=== PATIENT | male | born 1940 | race Caucasian/White ===

== ENCOUNTER → 2017-09-08 07:49 | Outpatient (CLI) | payer MEDICARE, OTHER, SELFPAY ==
[2017-09-08 09:57] LABS: AST(SGOT) 16 U/L (15-37); Alanine Aminotransfer ALT/SGPT 17 U/L (16-61); Albumin, Serum 3.6 g/dL (3.2-5.0); Alkaline Phosphatase 71 U/L (45-117); Bilirubin, Direct 0.12 mg/dL (0.00-0.30); Cholesterol 155 mg/dL (200); Globulin 3.8 g/dL (2.2-4.2); High Density Lipoprotein 41 mg/dL; Protein, Total 7.4 g/dL (6.4-8.2); Triglycerides 106 mg/dL; Very Low Density Lipoprotein 21 mg/dL (5-40)
== END ==
PROVIDERS: Family Provider Internal Medicine; PCP Internal Medicine; Visit Provider Internal Medicine Cardiovascular Disease
DX: E78.5 Hyperlipidemia, unspecified (principal); Z79.899 Other long term (current) drug therapy
CPT/HCPCS: 36415; 80061; 80076

== ENCOUNTER → 2017-12-14 15:01 | Outpatient (CLI) | payer MEDICARE, OTHER, SELFPAY ==
--- NOTE | 2017-12-14 15:06 | RAD_ITS ---
STUDY: X-RAY CHEST REASON FOR EXAM: Male, 77 years old. Cough x4 weeks TECHNIQUE: PA and lateral views of the chest. COMPARISON: Prior study of 12/14/2016 5:22 AM FINDINGS: There is hyperinflation of the lungs with hemidiaphragmatic flattening and increased retrosternal airspace consistent with COPD. There are 2 calcified granulomas of the right middle lobe measuring 1.2 and 1.3 cm respectively, stable from prior study of 07/04/2016. There is no pleural effusion. The heart size is within normal limits. Status post sternotomy changes are present. Normal mediastinum and babak. Normal visualized pulmonary arteries. There are calcified plaques of the aortic arch. There are diffuse degenerative changes of the visualized thoracic spine. Normal visualized ribs, clavicles, and shoulders. There is no demonstrated abnormality of the visualized soft tissue structures of the upper abdomen. RAD/Chest PA and Lateral IMPRESSION: Findings consistent with COPD. Stable calcified granulomas of the right middle lobe. Calcified plaques of the aortic arch. Status post sternotomy. No acute cardiopulmonary disease process is seen. Electronically Signed: Jevon Back MD at 16:09 EDT , Service support ,
== END ==
PROVIDERS: Family Provider Internal Medicine; PCP Internal Medicine; Referring Provider Nurse Practitioner; Visit Provider Nurse Practitioner
DX: R05 Cough (principal)
CPT/HCPCS: 71046

== ENCOUNTER → 2017-12-15 14:08 | Outpatient (CLI) | payer MEDICARE, OTHER, SELFPAY ==
--- NOTE | 2017-12-15 14:49 | CT_ITS ---
STUDY: CTA CHEST REASON FOR EXAM: Male, 77 years old. Elevated d-dimer. Short of breath. Previous heart surgery. History of lung cancer status post lobectomy. RADIATION DOSAGE (If Supplied By Facility): CTDIvol = ( 20.19 ) mGy, DLP = ( 727.77 ) mGycm TECHNIQUE: The examination was performed with the intravenous administration of 100 ml of Isovue 370 contrast material. Post-processing of the angiographic images was performed, with multiplanar reformation and 3D reconstruction. Individualized dose optimization techniques were used for this CT. COMPARISON: None. FINDINGS: Normal enhancement of the main pulmonary artery and right and left pulmonary arteries. Normal enhancement of the bilateral peripheral pulmonary arteries. There is no demonstrated pulmonary embolism. There is prominence of the main pulmonary arteries without peripheral pulmonary vascular congestion, suggesting pulmonary hypertension. There is atherosclerotic calcification of the aortic arch with tortuosity. There is no demonstrated aortic dissection. There is mild cardiomegaly. There are calcifications of the coronary arteries. Normal mediastinum. Normal hilar regions. Normal visualized trachea and bronchi. There is evidence of COPD and centrilobular emphysema. There is a partially calcified 1.2 cm nodule in the lateral right middle lobe. Scarring seen in both posterior lower lobes. Normal pleura. There are no pleural effusions. Normal chest wall structures. Moderate hiatal hernia. There are degenerative changes of thoracic spine. Views of the upper abdomen show numerous small bilateral renal stones. CT/CTA Chest W/WO Contrast IMPRESSION: No evidence for PE. COPD. Cardiomegaly. Electronically Signed: Prasanna Lr MD at 16:37 EDT , Service support ,
== END ==
PROVIDERS: Family Provider Internal Medicine; PCP Internal Medicine; Referring Provider Nurse Practitioner; Visit Provider Nurse Practitioner
DX: R79.89 Other specified abnormal findings of blood chemistry (principal)
CPT/HCPCS: 71275; Q9967

== ENCOUNTER → 2018-02-08 19:11 | Outpatient (CLI) | payer MEDICARE, OTHER, SELFPAY ==
--- NOTE | 2018-02-08 09:30 | CYSPIN_PTH ---
PATIENT: RICKY BURNS LOC: [facility] U#:[id number] AGE/SX: 84/M ROOM: RE02/08/[address]: Dr. Yandel Murrieta MD : 1940 BED: DIS: SPEC #: [id number] RECD: 02/08/18 16:59 STATUS: EFRA ALAYNA #: [id number] GRETCHEN: 02/08/18 09:[address]: Yandel Murrieta DEPT: CYTOLOGY RECD BY: Daryl Nielsen ENTERED: 02/09/18 11:47 SP TYPE: CYSPIN FL OTHR DR: Dr. Rosana Douglass, DO Tissues: Urine Procedures: Pap Stain (control) Special Stain Group II Cytospin Fluid HEADER OPERATION: Not noted PRE-OP DIAGNOSIS: Hematuria TISSUE SUBMITTED: Urine for cytology DIAGNOSIS CYTOLOGY Urine for cytology (cytospin): Clusters of mildly atypical urothelial cells noted. SJ:lorenzo 02/10/18 COMMENT Clinical correlation and appropriate follow up are necessary. 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 CYTOLOGY STUDY Slides are reviewed. CYTOLOGY GROSS Received is 18 ml of cloudy yellow fluid labeled with the patient's name and and designated per the requisition as urine. Submitted for cytology preparation. 02/09/18 TC:5 CPT: 06131
[2018-02-08 19:14] LABS: Cytology, Body Fluid / CSF SEE PATHOLOGY REPORT
--- OUTSIDE RECORDS SUMMARY | 2018-05-13 10:01 | XMS RPT_ITS | Continuity of Care Document ---
:1940 Author Organization [facility] Address [address] [place] [address] Phone Care Team Providers Name Role Phone Rosana Davis DO Unavailable [facility] Unavailable Gato Dickinson MD Unavailable Shannon Mendez Unavailable Unavailable Marjorie DOMINGUEZGaby Unavailable Kristen Kim Unavailable Unavailable RUSSELL Rosales Unavailable Unavailable Yesy Hagan Unavailable Unavailable Unavailable Unavailable Problems Name Dates Details Annual Medicare Phyiscal WITHOUT abnormal findings (Renamed from Encounter for general adult medical examination without abnormal findings) (Z00.00, V70.9) Comments: Colonoscopy Dickinson 2009, fUp in 2019 Patient here for medical follow up as well as medicare physical. Went through all the medicare questions withthe patient and reveiwed all their medical problems.No abnormal moles on physical examination.MMSE 27/30.Depression screening negative.Reviewed all the labs with the patient.(CBC, CMP, lipid panel, TSH, PSA, vitamin D, Vit B12,folate, HBA1c, UA)colonoscopy 11/28/2009, follow up 11/2019Up to date with vaccinations.Does not need any medication refills.Make sure throw rugs are thin and rubber backed. Recommend handrail in bathroom.Denies falls in the last 6 months Counselled on diet and exercise.Patient has durable power of energy attorney and living will. Status: Active Anxiety (F41.9, 300.00) Comments: doing well on zoloft. use 75 mg working great. Status: Active Bloating (R14.0, 787.3) Comments: still on PPI. talk abut probiotics. Status: Active BMI 29.0-29.9,adult (Z68.29, V85.25) Status: Active BMI 30.0-30.9,adult (Z68.30, V85.30) Status: Active Bronchitis (J40, 490) Status: Active Carotid stenosis (I65.29, 433.10) Comments: 3-15 mild moderate. will recheck - bilateral Status: Active Chronic headaches (R51, 784.0) Comments: had on and off for years. was on chronic IBU when stopped had bad headaches daily and now less. will mo nitor no other neuro signs and symptomstylenol /ibuprofen helps Status: Active Colon polyp (K63.5, 211.3) Comments: 11 scopePolyp araseli Status: Active Constipation, chronic (K59.09, 564.00) Comments: once a day but marbly. use stool softner. at times. told take everyday and assure not a stimulant. if does nto work try linzess. Status: Active Coronary artery disease (I25.10, 414.00) Comments: stableCABG X6 in 2003Ofori every 6 monthlast viit 12/15No CP, palpitations, Status: Active Cough (R05, 786.2) Comments: x 5 weeks Status: Active CRP elevated (R79.82, 790.95) Comments: repeat 6 weeksCRP: 12.2 Status: Active Depression (F32.9, 311) Comments: stable on zoloft 75 mgsince 2013, more for anxietyNo SI/HI Status: Active Diverticulitis, colon (K57.32, 562.11) Status: Active Diverticulosis of colon (K57.30, 562.10) Status: Active Dyspnea (R06.00, 786.09) Comments: Spirometry:Moderate obstructive AW disease.See network lead Dr Doty for lung cancer s/p surgery (october/2015)PFTSOB when walking through the yard, deneis CP, palpittaionsALbuterol INH PRN, hasnt used in a while Status: Active Dysuria (R30.0, 788.1) Comments: had cytoscopy 5 years ago. think in prostate will treat for 3 weeks. watch for tendonitis Status: Active Elevated d-dimer (R79.89, 790.92) Comments: with Sob and cough Status: Active Elevated lactic acid level (R79.89, 276.2) Status: Active Encounter for routine history and physical exam for male (Z00.00, V70.0) Comments: 08-07 reveiwed with patient all questions. talk about shingles vaccine. fo to pharmacy to get. psa andrectal 08-07. due 01-07 for colonscopy Status: Active Enlarged prostate with lower urinary tract symptoms (N40.1, 600.01) Status: Active Esophagitis (K20.9, 530.10) Comments: EGD 11-05, 11-07 goodBaggot 08 august 2015 Status: Active Fatigue (R53.83, 780.79) Comments: generalized weaknesssleeps 7-8 hours /night, restfull sleep, does not snore2-3 time in the middle of night to go to bathroom Status: Active Gastrointestinal bleeding (K92.2, 578.9) Comments: better nothing now ? diverticulosis. Status: Active GERD (gastroesophageal reflux disease) (K21.9, 530.81) Comments: been on ppi since 46 yo. cut off ibu. used multienzy nd pepsin. keep on ppi. egd few years ago Status: Active Hematuria (R31.9, 599.70) Comments: had in past had cystoscopy marlyn Status: Active Hemoptysis (R04.2, 786.30) Status: Active History of bladder stone (Z87.448, V13.09) Comments: last passed stone 15. Status: Active History of lung cancer (Z85.118, V10.11) Status: Active History of tobacco use (Z87.891, V15.82) Status: Active HX, PERSONAL, MALIGNANCY, RESPIRATORY NEC (V10.29) Comments: 10-07 Dr. Almanzar 6 monthsleft lower lobe removed 2009, due to cancer, localized, no chemo or radiation Status: Active Hypercholesteremia (E78.00, 272.0) Comments: Dr. peres check Status: Active Hypertension (I10, 401.9) Comments: stableOfori 01/2015, every 6 month, next appt in [facility], started HCTD 03/10, stableStable at home:125/60, 97741/60, 120/65 Status: Active Impaired fasting glucose (R73.01, 790.21) Comments: HBA1c 5.6 07/24/15 Status: Active Itching (L29.9, 698.9) Status: Active Malignant neoplasm of bronchus and lung, unspecified (C34.90, 162.9) Comments: rt lobectomy Status: Active Need for prophylactic vaccination and inoculation against influenza (Renamed from Need for immunization against influenza) (Z23, V04.81) Status: Active Need for vaccination against Streptococcus pneumoniae (Z23, V03.82) Status: Active Nonsmoker (Z78.9, V49.89) Status: Active Obstructive lung disease (J44.9, 496) Comments: has not been using anoro given to him by [facility], mildsmoked for 30 years, 1-2 ppd, quit 23 yrs agoNo cough, phlegm white more in winterNo wheezeHAs allergiesHas rescue inhalor, [facility] COPD and gets Inhalors from there Status: Active Pneumococcal vaccination given (Z23, V06.6) Status: Active Poison ana (L23.7, 692.6) 15-Apr-2010 Status: Active PROPHYLACTIC VACCINATION AGAINST STREPTOCOCCUS PNEUMONIAE (V03.82) Status: Active Screening for prostate cancer (Z12.5, V76.44) Status: Active Shortness of breath (R06.02, 786.05) Comments: ? copd, Pe? panic? lung cancer, pneumonia, labs, dimer, etc add antibiotic prednison Status: Active Thrombocytopenia (D69.6, 287.5) Status: Active Unspecified bacterial pneumonia (J15.9, 482.9) 05-Nov-2009 Status: Active Vision abnormalities (H53.9, 368.9) [facility]/70Both 20/70could do a few 20/50Last [address] Floyd Status: Active Vitamin D deficiency (E55.9, 268.9) Status: Active Medications Name Dates Details ASPIRIN LOW DOSE, 81MG (Oral Tablet) 1 Daily for 0 days Refills: 0 Ordered:24-Jul-2015 Wes Hernandez MD Start : 24-Jul-2015 Active ISOSORBIDE MONONITRATE ER, 60MG (Oral Tablet Extended Release 24 Hour) 1 qd for 0 days Refills: 0 Ordered:24-Jul-2015 Wes Hernandez MD Start : 24-Jul-2015 Active Levaquin 500 MG Oral Tablet 1 (one) Tablet daily for 0 days Quantity: 10 {Tablet} Refills: 0 Ordered:14-Dec-2017 Marjorie DOMINGUEZ Gaby Torrez Start : 14-Dec-2017 Active Losartan Potassium 50 MG Oral Tablet 1 (one) Tablet Tablet BID for 90 days Quantity: 90 {Tablet} Refills: 3 Ordered:11-Sep-2017 Shannon Mendez Start : 11-Sep-2017 Active Metoprolol Tartrate 25 MG Oral Tablet 1/2 qd (25 MG) Active MULTI VITAMIN 1 qd Active NORVASC, 10MG (Oral Tablet) 1 (one) Tablet qd for 0 days Quantity: 30 {Tablet} Refills: 3 Ordered:24-Jul-2015 Wes Hernandez MD Start : 24-Jul-2015 Active OMEPRAZOLE, 20MG (Oral Tablet Delayed Release) [address] bid for 0 days Quantity: 180 {Tablet} Refills: 3 Ordered:24-Jul-2015 Wes Hernandez MD Start : 24-Jul-2015 Active PRAVACHOL, 40MG (Oral Tablet) 1 Tablet qd for 0 days Quantity: 30 {Tablet} Refills: 0 Ordered:24-Jul-2015 Wes Hernandez MD Start : 24-Jul-2015 Active PredniSONE 10 MG Oral Tablet 3 (three) Tablet pills for 3 days 2 pills for 3 days then 1 pill for 3 days for 0 days Quantity: 18 {Tablet} Refills: 0 Ordered:14-Dec-2017 Marjorie DOMINGUEZ Pepper Start : 14-Dec-2017 Active Comments:with food TOPROL XL, 50MG (Oral Tablet Extended Release 24 Hour) 1/2 Tablet ER 24HR bid for 0 days Quantity: 30 {Tablet_ER_24HR} Refills: 0 Ordered:24-Jul-2015 Wes Hernandez MD Start : 24-Jul-2015 Active Ventolin HFA 108 (90 Base) MCG/ACT Inhalation Aerosol Solution 1 puff q hrs prn (108 (90 Base) MCG/ACT) Active Zoloft 50 MG Oral Tablet 1 1/2-2 Tablet daily for 90 days Quantity: 135 {Tablet} Refills: 3 Ordered:04-Nov-2017 Evonne DUTTONKishor DO, Kathleen Start : 04-Nov-2017 Active Zoloft 50 MG Oral Tablet 1 1/2-2 Tablet daily for 90 days Quantity: 134 {Tablet} Refills: 3 Ordered:04-Nov-2017 EvonneKishor vicente DO, DO, Kathleen Start : 04-Nov-2017 Active ALTACE, 10MG (Oral Capsule) 1 qd for 0 days Refills: 0 Ordered:15-Apr-2010 JOHANA Ellis End : 15-Apr-2010 Inactive ASPIRIN, 81MG (Oral Tablet) 1 qd for 0 days Refills: 0 Ordered:15-Apr-2010 JOHANA Ellis End : 15-Apr-2010 Inactive ATIVAN, 1MG (Oral Tablet) 1 Tablet once a day prn anxiety attack for 0 days Quantity: 10 {Tablet} Refills: 0 Ordered:24-Apr-2015 JOHANA Ellis Start : 22-Oct-2012 End : 24-Apr-2015 Inactive Comments:ten AUGMENTIN, 875-125MG (Oral Tablet) 1 Tablet bid for 0 days Quantity: 28 {Tablet} Refills: 0 Ordered:13-Jun-2010 JOHANA Ellis Start : 24-May-2010 End : 13-Jun-2010 Inactive BENADRYL, 25MG (Oral Capsule) 1 (one) Capsule Capsule q8hrs prn for 0 days Quantity: 30 {Capsule} Refills: 0 Ordered:03-Aug-2014 JOHANA Ellis Start : 31-Aug-2013 End : 03-Aug-2014 Inactive Benazepril HCl 40 MG Oral Tablet 1 Tablet bid for 0 days Quantity: 60 {Tablet} Refills: 0 Ordered:31-Dec-2016 Carmela Rosales LPN Start : 24-Jul-2015 End : 31-Dec-2016 Inactive CHERATUSSIN AC, 100-10MG/5ML (Oral Syrup) 1 (one) Syrup Syrup 1-2 tsp every 6 hours prn cough for 0 days Quantity: 8 {Fluid_Ounce} Refills: 0 Ordered:03-Aug-2014 JOHANA Ellis Start : 28-Feb-2014 End : 03-Aug-2014 Inactive Comments:eight CIPRO, 500MG (Oral Tablet) 1 (one) Tablet bid for 21 days Quantity: 42 {Tablet} Refills: 0 Ordered:23-Jan-2015 Parul Rice MD Start : 23-Jan-2015 End : 13-Feb-2015 Inactive CLARINEX, 5MG (Oral Tablet) 1 (one) Tablet qd for 0 days Refills: 0 Ordered:15-Apr-2010 JOHANA Ellis Start : 25-Jul-2008 End : 15-Apr-2010 Inactive Clarithromycin 500 MG Oral Tablet 1 (one) Tablet bid for 0 days Quantity: 20 {Tablet} Refills: 0 Ordered:31-Dec-2016 Carmela Rosales LPN Start : 04-Jul-2016 End : 31-Dec-2016 Inactive CRESTOR, 5MG (Oral Tablet) 1 qd for 0 days Refills: 0 Ordered:05-Nov-2009 JOHANA EllisInactive DEXILANT, 60MG (Oral Capsule Delayed Release) 1 (one) Capsule DR daily for 0 days Quantity: 30 {Capsule} Refills: 0 Ordered:31-Jan-2014 Wendy Johnson LPN Start : 31-Jan-2014 End : 31-Jan-2014 Inactive DOXY-CAPS, 100MG (Oral Capsule) 1 (one) Capsule bid for 0 days Quantity: 20 {Capsule} Refills: 0 Ordered:05-Nov-2009 JOHANA Ellis Start : 09-Jul-2007 Inactive HydroCHLOROthiazide 25 MG Oral Tablet 1 (one) Tablet qd for 0 days Quantity: 30 {Tablet} Refills: 2 Ordered:31-Dec-2016 Carmela Rosales LPN Start : 24-Jul-2015 End : 31-Dec-2016 Inactive Comments:bam Peres ISOSORBIDE MONONITRATE CR, 30MG (Oral Tablet Extended Release 24 Hour) 1 qd for 0 days Refills: 0 Ordered:15-Apr-2010 JOHANA Ellis End : 15-Apr-2010 Inactive NASACORT AQ, 55MCG/ACT (Nasal Aerosol Solution) 2 (two) Aerosol Soln qd for 0 days Refills: 0 Ordered:05-Nov-2009 JOHANA Ellis Start : 25-Jul-2008 Inactive NEXIUM, 40MG (Oral Capsule Delayed Release) [address] Daily for 0 days Quantity: 90 {Capsule_DR} Refills: 3 Ordered:08-Nov-2007 JOHANA Ellis Start : 08-Nov-2007 End : 27-Jan-2008 Inactive OMNICEF, 300MG (Oral Capsule) 1 (one) Capsule bid for 10 days Quantity: 20 {Capsule} Refills: 0 Ordered:09-Aug-2009 Gaby Ro CNP Start : 24-Jul-2009 End : 03-Aug-2009 Inactive PHENERGAN, 25MG (Oral Tablet) Tablet QID/PRN for 0 days Quantity: 20 {Tablet} Refills: 0 Ordered:15-May-2006 Renee Oreilly LPN Start : 15-May-2006 End : 04-Aug-2006 Inactive PROVENTIL HFA, 108 (90 Base)MCG/ACT (Inhalation Aerosol Solution) 2 (two) Aerosol Soln q 6 hr prn for 0 days Quantity: 1 {Inhaler} Refills: 0 Ordered:24-Apr-2015 JOHANA Ellis Start : 19-Mar-2015 End : 24-Apr-2015 Inactive SIMVASTATIN, 40MG (Oral Tablet) 1 qd for 0 days Refills: 0 Ordered:16-Aug-2010 JOHANA Ellis End : 16-Aug-2010 Inactive TAMIFLU, 75MG (Oral Capsule) Capsule BID5 days for 0 days Quantity: 10 {Capsule} Refills: 0 Ordered:15-May-2006 Renee Oreilly LPN Start : 15-May-2006 End : 04-Aug-2006 Inactive VITAMIN D, 2000UNIT (Oral Capsule) 1 (one) Capsule daily for 30 days Quantity: 30 {Capsule} Refills: 0 Ordered:12-Nov-2015 Wes Hernandez MD Start : 08-Aug-2015 End : 07-Sep-2015 Inactive ZOSTAVAX, 93252EMD/0.65ML (Subcutaneous Solution Reconstituted) 1 For Solution once IM for 0 days Quantity: 1 {For_Solution} Refills: 0 Ordered:13-Jun-2010 JOHANA Ellis Start : 15-Apr-2010 End : 13-Jun-2010 Inactive Diovan 80 MG Oral Tablet 1 (one) Tablet bid for 0 days Quantity: 180 {Tablet} Refills: 3 Ordered:14-Dec-2017 Shannon Mendez Start : 31-Dec-2016 End : 14-Dec-2017 Discontinued OMEPRAZOLE, 40MG (Oral Capsule Delayed Release) 1 (one) Capsule DR daily for 0 days Quantity: 30 {Capsule} Refills: 0 Ordered:31-Jan-2014 Dwayne GARCIA, Parul Edwards Start : 31-Jan-2014 End : 31-Jan-2014 Discontinued Comments:ignore PREDNISONE, 20MG (Oral Tablet) tad Tablet tad for 0 days Quantity: 17 {Tablet} Refills: 0 Ordered:21-Aug-2006 Chayo Lorenz Start : 21-Aug-2006 End : 23-Jun-2007 Discontinued Allergies and Adverse Reactions Name Dates Details No Known Allergies (Allergy) Onset: 25-Jul-2013 Status: Active No Known Drug Allergies (Allergy) Status: Active Past Medical History Name Dates Details Actinic keratosis (L57.0, 702.0) Status: Inactive as of 10-Aug-2012 Acute sinusitis (J01.90, 461.9) Status: Inactive as of 10-Aug-2012 BMI 30.0-30.9,adult (Z68.30, V85.30) Status: Resolved as of 10-Sep-2017 BMI 31.0-31.9,adult (Z68.31, V85.31) Status: Resolved as of 10-Sep-2017 BPH Status: Inactive as of 10-Aug-2012 Bronchitis (J40, 490) Status: Resolved as of 31-Dec-2016 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 kidney stones and back to [place] Status: Inactive as of 10-Aug-2012 Dysphagia, unspecified dysphagia (787.20) Comments: pt did not call Dr. dickinson as Dr. davis recommend had EGD for this and everything good. Status: Resolved as of 25-Jul-2013 Epigastric pain (R10.13, 789.06) Status: Inactive as of 25-Jul-2014 Essential hypertension, malignant (I10, 401.0) Status: Inactive as of 10-Aug-2012 folliculitis 15-Apr-2010 Status: Inactive as of 10-Aug-2012 H/O Colon Polyps Status: Inactive as of 10-Aug-2012 H/O Kidney stones Status: Inactive as of 10-Aug-2012 hemmorhiodectomy Status: Inactive as of 10-Aug-2012 hernia repair right Status: Inactive as of 10-Aug-2012 Hypotension, chronic (I95.89, 458.1) Status: Resolved as of 31-Dec-2016 Lung nodule (R91.1, 793.11) Comments: pulm at 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 last few CT scan of chest up at [facility] see Dr. Lam pultania. will send up report and asrrue they compare Status: Resolved as of 25-Jul-2013 POSTPROCEDURAL AORTOCORONARY BYPASS STATUS (V45.81) Status: Inactive as of 10-Aug-2012 Thrombophlebitis (I80.9, 451.9) Status: Inactive as of 10-Aug-2012 tonsillectomy Status: Inactive as of 10-Aug-2012 Traumatic pneumothorax with open wound into thorax (Renamed from Pneumothorax, open, traumatic) (S27.0XXA, 860.1) Status: Inactive as of 10-Aug-2012 Upper respiratory infection (J06.9, 465.9) Status: Inactive as of 10-Aug-2012 WW V70.0 Status: Inactive as of 10-Aug-2012 Procedures Procedure Dates Details Colonoscopy Completed Comments: 01-09-2010 (Dr. Dickinson) due in 10 years Colonoscopy - Dr West, patient reports Completed he is to check in 4 years Comments: colonoscopy 11/28/2009: moderate to severe diverticulosis, follow up 11/2019 kidney stones Completed Comments: 2016 Prostatectomy; Transurethral Completed Comments: 2006- benign Date Value Details 14-Dec-2017 Chest PA and Lateral Result: Comments: See Note; NOTES: [facility] Imaging Services [address] [place] [address] Chest PA and Lateral MR#: [id number] Acct: [id number] Name: GEORGE VANN Rep #: [id number] : 1940 M 77 From: Jevon Back MD PCP: Rosana Davis DO Status: REG CLI Study: Chest PA and Lateral Date of Exam: 12/14/17 Exam# [id number] Ordering Dr: Gaby Ro SIENE MAKERHernan STUDY: X-RAY CHEST REASON FOR EXAM: Male, 77 years old. Cough x4 weeks TECHNIQUE: PA and lateral views of the chest. COMPARISON: Prior study of 12/14/2016 5:22 AM FINDINGS: There is hyperinflation of the lungs with hemidiaphragmatic flattening and increased retrosternal airspace consistent with COPD. There are 2 calcified granulomas of the right middle lobe measuring 1.2 a nd 1.3 cm respectively, stable from prior study of 07/04/2016. There is no pleural effusion. The heart size is within normal limits. Status post sternotomy changes are present. Normal mediastinum and hi la. Normal visualized pulmonary arteries. There are calcified plaques of the aortic arch. There are diffuse degenerative changes of the visualized thoracic spine. Normal visualized ribs, clavicles, and shoulders. There is no demonstrated abnormality of the visualized soft tissue structures of the upper abdomen. RAD/Chest PA and Lateral IMPRESS ION: Findings consistent with COPD. Stable calcified granulomas of the right middle lobe. Calcified plaques of the aortic arch. Status post sternotomy. No acute cardiopulmonary disease process is seen. Electronically Signed: Jevon Back MD at 16:09 EDT , Service support , CC: Gaby Ro NP; Rosana Davis DO Automated Weaver: Signed 10-Sep-2017 Cardiology Visit Report Result: Comments: See Note; NOTES: [facility] [address] [place] [address] OFFICE VISIT Date of Service: 09/10/17 MR#: [id number] Acct: [id number] Name: GEORGE VANN Rep #: [id number] : 1940 Provider: Butch Peres MD Age/Sex: 76/M Location: [facility] Status: Signed HPI HPI Chief Complaint: Follow up visit Details: GEORGE VANN, is a 76 M who presents to e office today for a cardiovascular follow-up. He has a history of coronary artery disease with bypass surgery in 2003. He had a JUAREZ sequentially to the ramus intermedius and first diagonal, BUD to th e LAD, SVG to the second diagonal, SVG sequentially to the posterior descending and circumflex. Heart catheterization done in 2012 were similar to 2004. He also has a history of hypertension, hyperlipid emia, left lower lobe lobectomy without radiation for his history of lung cell carcinoma. His major concern on this particular visit is that he has had some shortness of breath. He remember he had been on hydrochlorothiazide which he said was discontinued after his last hospitalization. He has not had any neck arm or jaw discomfort suggest angina no dizziness or diaphoresis no near syncope or syncope. His physical exam today demonstrates fine rales at the bases regular rate and rhythm and no pedal edema. 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 [Ecotrin] 81 mg PO DAILY@0800 12/04/15 [History Confirmed 09/10] Pravastatin [Pravachol] 40 mg PO DAILY 12/04/15 [History Confirmed 09/10/17] Sertraline HCl [Zoloft] 75 mg PO DAILY 12/04/15 [History Confirmed 09/10/17] Valsartan [Diovan] 80 mg PO BID #0 12/14/16 [Rx Confirmed 09/10/17] nitroglycerin 0.4 mg sublingual tablet 0.4 mg SUBLINGUAL Q5M PRN 02/27/17 [History Confirmed 09/10/17] amlodipine 10 mg tablet 10 mg PO QDAY #90 tab 08/10/17 [Rx Confirmed 09/10] isosorbide mononitrate ER 60 mg tablet,extended release 24 hr 60 mg PO DAILY #90 tab 08/10/17 [Rx Confirmed 09/10/17] metoprolol tartrate 25 mg tablet 12.5 mg PO BID #90 tab 08/10/17 [Rx Confirmed 09/10/17] omeprazole 20 mg capsule,delayed release 20 mg PO BID #180 cap 08/10/17 [Rx Confirmed 09/10/17] hydrochlorothiazide 25 mg tablet 25 mg PO QDAY #90 tab 09/10/17 [Rx Confirmed 09/10/17] PFSH Medical History Atherosclerotic heart disease of [place] coronary artery without angina pectoris (Chronic) HLD (hyperlipidemia) (Chronic) HTN (hypertension ) (Chronic) Arteriosclerosis of arterial coronary artery bypass graft (Chronic) Abnormal electrocardiogram (Chronic) Carotid bruit (Chronic) Shortness of breath (Chronic) Hypoxia (Chronic) COPD (chronic obstructive pulmonary disease) (Chronic) HLD (hyperlipidemia) (Chronic) History of echocardiogram (Chronic 12/10/15) History of left heart catheterization (LHC) (Chronic) History of stress test (Chroni c 08/21/16) Surgical History Aortocoronary bypass status (Chronic) History of tonsillectomy (Chronic) History of transurethral resection of prostate (Van garcia 06/03/06) Family History Mother Cancer Lung CA Brother Diabetes Social History Smoking Status: Former smoker alcohol intake: current al cohol intake frequency: a few times a week Alcohol type: wine substance use type: does not use caffeine: Yes Type: coffee Number of servings: 3 what type of physical activity do you participate in: n one seatbelt use: always do you feel safe at home: Yes ROS Const Const: Positive for headache(s) (for the last 6 months); negative for fatigue, weakness, night sweats, excessive sweating, frequen t falls or daytime sleepiness Eyes Eyes: Negative for loss of peripheral vision, transient loss of vision, blind spots, double vision or blurry vision ENT ENT: Positive for headache(s) (for the last 6 m onths); negative for dizziness, balance problems, Nosebleed/epistaxis, tongue swelling or lip swelling Cardio Chest Pain: No Palpitations: No Edema: None Muscle aches with walking: None Resp Respiratory : Positive for SOB with activity; negative for SOB at rest, SOB orthopnea\SOB lying down, Cough or paroxysmal nocturnal dyspnea GI GI: Negative nausea, vomiting, heartburn, black,tarry stools or bright, red blood in stools : Negative for hematuria Musc Musc: Negative for balance problems, muscle aches/ myalgia, muscle weakness or joint pain Skin Skin: Negative non-healing lesions, unusual bruisin g or rash Neuro Neuro: Positive for headache(s) (for the last 6 months); negative for weakness, frequent falls, double vision, dizziness, lightheadedness, orthostatic symptoms, blurry vision or lack of coordination Derek Hematologic/Lymphatic: Negative for easy bruising or easy bleeding Endo Endo: Negative for fatigue, excessive sweating, cold intolerance, heat intolerance, increased thirst/drinking or hair loss Psych Psych: Negative for anxiety or depression Allergy Allergy/Immunology: Negative for throat swelling, Negative for tongue swelling, Negative for hives, Negative for rash, Negative for lip swelling Cardiology Exam Const Appearance: cooperative, healthy appearing, well developed, well groomed and no acute distress Nutritional Appearance: well nourished and average body habitus Orientati on: alert, awake and oriented x3 Head Head: normal to inspection, normocephalic and atraumatic Ears: hearing grossly normal bilaterally and external ears normal Nose: external nose normal, nasal mucous membranes and turbinates normal, nares normal, septum normal, no nasal discharge Face and Sinus: face symmetric Mouth: oral mucosae normal, tongue normal, oropharynx normal and moist mucous membranes Te eth and gingiva: dentition normal Throat: posterior oropharynx normal, tonsils normal and uvula midline Eyes General: appearance normal, both eyes and all related structures Eyelids: eyelids normal Conj unctivae: conjunctivae normal Pupils: PERRL, normal by confrontation and accommodation normal EOM: EOM intact bilaterally Neck Neck: normal visual inspection, trachea midline and no JVD JVD: +5 Carotids : normal carotid upstroke and bounding pulses Chest Auscultation: Bilateral: Rales Cardio Palpation: normal PMI Rate: regular rate Rhythm: regular rhythm Heart sounds: S1 normal, S2 normal and normal, p hysiologic split S2; negative rub, gallop or murmur GI GI: normal to inspection, soft, no hepatosplenomegaly and bowel sounds present Neuro General: alert, awake, oriented x3, no focal sensory deficit, gait normal and moves all extremities Skin Skin: no rashes or lesions noted Extremities Pulses: Normal: Right Femoral Pulse, Left Femoral Pulse, Right Dorsalis Pedis Pulse, Left Dorsalis Pedis Pulse, Ri ght Posterior Tibial Pulse, Left Posterior Tibial Pulse, Right Radial Pulse, Left Radial Pulse Lower Extremity Edema: None: Bilateral Musculoskel Musculoskeletal: No joint tenderness Psych Psychological : normal affect Assessment AND Plan 1. Shortness of breath R06.02 Plan He does have mild shortness of breath which is likely secondary to diastolic dysfunction his last echocardiogram in 2016 demonstr ated ejection fraction of 60% with trivial mitral regurgitation trivial tricuspid regurgitation and pulmonary systolic pressure of at least 44 mmHg I will suggest that we reinstitute his hydrochlorothia zide 25 mg once a day. 2. Essential hypertension I10 Plan His blood pressure appears to be under good control on the present medical therapy and other than the addition of the hydrochlorothiazide no ot her changes will be made. 3. 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 He did undergo stress testing in 2017 which was negative for ischemia. We will continue to manag e him aggressively. 4. Pure hypercholesterolemia E78.00 Plan He does have a history of hyperlipidemia but his most recent lipid profile demonstrated total cholesterol 155, HDL of 41, and LDL of 93. Tri glycerides 106. The above listed numbers are acceptable and I would not suggest making any changes. 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 Pure hypercholesterolemia E78.00 Hyperlipidemia type: pure hypercholesterolemia 09/10/17 1608 <Electronically signed by Bucth Peres MD> Date Butch Peres MD Cosigner Signature: Date (if applicable) CC: Rosana Davis DO 13-Mar-2017 Office Visit Report Result: Comments: See Note; NOTES: [facility] [place] [address] OFFICE VISIT Date of Service: 03/13/17 MR#: [id number] Acct: [id number] Patient: GEORGE VANN Rep #: [id number] : 1940 Provider: Rossana You Age/Sex: 76/M Location: [facility] [place] Status: Signed Intake Vital Signs03/13/17 Height 5 ft 10 in 03/13/17 Blood Pressure 140/72 03/13/17 Blood Pressure Location Lt brachial Intake Visit Reasons: 2 wk bp 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 [Ecotrin] 81 mg PO DAILY@0800 12/04/15 [History Confirmed 02/27/17] Isos orbide Mononitrate [Imdur] 60 mg PO DAILY 12/04/15 [History Confirmed 02/27/17] Omeprazole [Prilosec] 20 mg PO BID 12/04/15 [History Confirmed 02/27/17] Pravastatin [Pravachol] 40 mg PO DAILY 12/04/15 [ History Confirmed 02/27/17] Sertraline HCl [Zoloft] 75 mg PO DAILY 12/04/15 [History Confirmed 02/27/17] Psyllium Husk (with Sugar) [Metamucil Packet] 3.4 gm PO DAILY #30 packet 12/14/16 [Rx Confirmed 0 02/27/17] Valsartan [Diovan] 80 mg PO BID #0 12/14/16 [Rx Confirmed 02/27/17] nitroglycerin 0.4 mg sublingual tablet 0.4 mg SUBLINGUAL Q5M PRN 02/27/17 [History Confirmed 02/27/17] amlodipine 10 mg table t 10 mg PO QDAY 90 Days #90 tab 03/13/17 [History Confirmed 03/13/17] Nursing Note Pt is here today for cuff correlation and a bp check due to change in medication. During OV 02/27/2017 Rossana myles PA-C instructed pt to increase amlodipine to 10 mg po daily d/t bp of 142/82. Pt denies SOB, chest discomfort, dizziness, no lower extremity edema present. Our cuff: 140/72, 84 bpm, RR 18. Pt cuff : 149/87, 83 bpm. Rossana You PA-C reviewed vitals and pt is to continue current medication therapy, pt has been notified. 03/13/17 1211 <Electronically signed by Rossana HA> Date Rossana HA Cosigner Signature: Date (if applicable) CC: Abiel Carlin 04-Mar-2017 Cardiology Visit Report Result: Comments: See Note; NOTES: [facility] [address] [place], [place] [address]. [address] [place] [address] OFFICE VISIT Date of Service: 02/27/17 MR#: [id number] Acct: [id number] Name: GEORGE VANN Rep #: [id number] : 1940 Provider: Rossana You Age/Sex: 76/M [place] [facility] [place] Status: Signed HPI 6 M FU: Details: GEORGE VANN, is a 76 M who presents to the office today for cardio vascular follow-up. He has a history of coronary artery disease with bypass surgery in 2003. He had a JUAREZ sequentially to the ramus intermedius and first diagonal, BUD to the LAD, SVG to the second di agonal, SVG sequentially to the posterior descending and circumflex. Heart catheterization done in 2012 were similar to 2005. He also has a history of hypertension, hyperlipidemia, left lower lobe lobec yomaira without radiation for his history of lung cell carcinoma. Patient had a stress test in 2017 which was negative for ischemia. Echocardiogram in 2016 demonstrated an ejection fraction of 60%. Left atrium mildly enlarged. Trivial mitral insufficiency. Mild tricuspid insufficiency. Mild pulmonic insufficiency. RVSP 44 mmHg. From a cardiac standpoint he has feels that he is doing well. He does cont inue to have shortness of breath. He is working with pulmonary on this. He does not feel it is any worse than previous. He does not have any chest pain or heaviness. He does not have any palpitations. H e does not have any lightheadedness or dizziness. He does not have any lower extremity edema. Patient's blood pressure is elevated today. He does not have a blood pressure monitor at home. Intake Vital Signs02/27/17 Height 5 ft 10 in 02/27/17 Weight: 206 lb 02/27/17 Body Mass Index (BMI) 29.5 02/27/17 Blood Pressure 142/82 02/27/17 Blood Pressure Location Lt brachial Intake Visit Reasons: 6 M FU In terpreter Required: No Accompanied by: None Is patient in pain?: No Allergies No Known Allergies Allergy (Verified 02/27/17 08:43) Medications Albuterol Inhaler [Ventolin Hfa] 1 - 2 puff INHALATION Q4H PRN PRN 12/04/15 [History Confirmed 02/27/17] Aspirin E.C. [Ecotrin] 81 mg PO DAILY@0800 12/04/15 [History Confirmed 02/27/17] Isosorbide Mononitrate [Imdur] 60 mg PO DAILY 12/04/15 [History Confir med 02/27/17] Omeprazole [Prilosec] 20 mg PO BID 12/04/15 [History Confirmed 02/27/17] Pravastatin [Pravachol] 40 mg PO DAILY 12/04/15 [History Confirmed 02/27/17] Sertraline HCl [Zoloft] 75 mg PO DAILY 12/04/15 [History Confirmed 02/27/17] Psyllium Husk (with Sugar) [Metamucil Packet] 3.4 gm PO DAILY #30 packet 12/14/16 [Rx Confirmed 02/27/17] Valsartan [Diovan] 80 mg PO BID #0 12/14/16 [Rx Confirmed 02/27/17] amlodipine 10 mg tablet PO 90 Days #90 02/27/17 [History Confirmed 02/27/17] nitroglycerin 0.4 mg sublingual tablet 0.4 mg SUBLINGUAL Q5M PRN 02/27/17 [History Confirmed 02/27/17] Ejection fraction %: 60 to 64 PFSH Medical History Atherosclerotic heart disease of [place] coronary artery without angina pectoris (Chronic) HLD (hyperlipidemia) (Chronic) HTN (hypertension) (Chronic) Arterios clerosis of arterial coronary artery bypass graft (Chronic) Abnormal electrocardiogram (Chronic) Carotid bruit (Chronic) Shortness of breath (Chronic) Hypoxia (Chronic) COPD (chronic obstructive pulmona ry disease) (Chronic) Benign hypertension (Chronic) HLD (hyperlipidemia) (Chronic) History of coronary artery disease (Chronic) History of nephrolithiasis (Chronic) Acute hypoxemic respiratory failure ( Chronic) Aspiration pneumonia (Chronic) Pulmonary nodules (Chronic) Bladder cancer (Chronic) Abdominal pain (Chronic) Constipation (Chronic) Elevated lactic acid level (Chronic) History of echocardiogra m (Chronic 12/10/15) History of left heart catheterization (LHC) (Chronic) History of stress test (Chronic 08/21/16) Surgical History Aortocoronary bypass status (Chronic) History of tonsillectomy (C hronic) History of transurethral resection of prostate (Chronic 06/03/06) Family History Mother Cancer Lung CA Brother Diabetes Social History Smoking Status: Former smoker alcohol intake: current alcohol intake frequency: a few times a week Alcohol type: wine substance use type: does not use caffeine: Yes Type: coffee Number of servings: 3 what type of physical activity do you partic ipate in: none seatbelt use: always do you feel safe at home: Yes ROS Const Const: Negative for weakness, fatigue, fever(s) or headache(s) Eyes Eyes: Negative for blind spots, loss of peripheral vision or transient loss of vision ENT ENT: Negative for headache(s), Negative for dizziness, Negative for tinnitus, Negative for Nosebleed/epistaxis Cardio Chest Pain: No Palpitations: Positive for No Edema: None Muscle aches with walking: None Resp Respiratory: Positive for SOB with activity; negative for SOB at rest or SOB orthopnea\SOB lying down GI GI: Negative nausea, vomiting, heartburn or vomi ting blood/hematemesis : Negative for hematuria Musc Musc: Negative for muscle aches/ myalgia Neuro Neuro: Negative for weakness, Negative for headache(s), Negative for dizziness, Negative for near syncope, Negative for syncope, Negative for lightheadedness Derek Hematologic/Lymphatic: Negative for easy bleeding Endo Endo: Negative for fatigue Cardiology Exam Const Appearance: cooperative, no ac [place] distress and well developed Orientation: alert, awake and oriented x3 Head Head: normocephalic and atraumatic Mouth: moist mucous membranes Eyes General: appearance normal, both eyes and all related structures Conjunctivae: conjunctivae normal Pupils: PERRL EOM: EOM intact bilaterally Neck Neck: normal visual inspection, no lymphadenopathy and no JVD Carotids: Negative bruit Neck Mass: Negative Ne ck mass Chest Chest inspection: normal inspection of the chest and symmetric chest movement Auscultation: Bilateral: Clear to Auscultation Cardio Palpation: normal PMI Rate: regular rate Rhythm: regular rhythm Heart sounds: S1 normal and S2 normal; negative rub, gallop or murmur GI GI: normal to inspection, soft, no hepatosplenomegaly and bowel sounds present; negative tender Neuro General: alert, lo ke, oriented x3, CN's II-XI intact bilaterally and moves all extremities Extremities Pulses: Normal: Right Posterior Tibial Pulse, Left Posterior Tibial Pulse, Right Radial Pulse, Left Radial Pulse Lowe r Extremity Edema: None: Bilateral Psych Psychological: normal affect Assessment AND Plan 1. Atherosclerosis of [place] coronary artery of [place] heart without angina pectoris I25.10; I25.10; I25.10 CA BG x6: JUAREZ sequentially to Ramus Intermedius and first diagonal, BUD to LAD, SVG to diagonal 2, SVG sequentially to posterior descending artery and CX @ [facility] 07/20/2003; [facility] 01/07/2005. Plan - DILCIA Trinidad Stable, from a cardiac standpoint patient does not have any symptoms of angina. We recommend that they continue with current aggressive medical management and risk factor modifi cation. 2. Essential hypertension I10; I10; I10 Plan - DILCIA [place] Blood pressure is elevated today. Will have patient increase his amlodipine to 10 mg today. He will return in 2 weeks for blood pressure check. Will adjust accordingly. Patient Instructions - DILCIA [place] Increase your Amlodipine to 10 mg a day. I will have you come back in 2 weeks for a Bp check with your cuf f to make sure that it correlates. We can adjust medication from there. When you come in at that time bring in all of your medications that you are taking. 3. Pure hypercholesterolemia E78.00; E78.00; E78.00; E78.0 Plan - DILCIA Trin[place] Recent lipid profile demonstrates total cholesterol 142, HDL 39, LDL 64. Will not make any adjustments at this time. We will continue to monitor. Plan Deta il Other Medications New: Discontinued: Additional Comments - DILCIA Trin[place] The above patient was discussed with Dr. Peres, he agrees with plan of care. Thank you for allowing us to partici truong in patient's plan of care, if you have any questions please do not hesitate to call. This note was generated using a voice recognition system and there may be incorrect words, spelling or punctuat ion errors that were not noted when reviewing the office note prior to saving. Follow Up 6 Months (SHELVER) 02/27/17 (2 week Bp check) 03/02/17 0941 <Electronically signed by Rossana You PA> Date Rossana HA 03/04/17 1738<Electronically signed by Butch Peres MD> Cosigner Signature: Date (if applicable) Butch Peres MD CC: Rossana You 11-Dec-2016 History and Physical Exam Result: Comments: See Note; NOTES: [facility] Medical Records Department [address] [place] [address] History and Physical 12/11/16 1646 MR#: [id number] Acct: [id number] Name: Teofilo VANN Tania Rep #: [id number] : 1940 76 From: Marie Edmond MD PCP: Rosana Davis DO Status: REG ER Y Location: ED Problem List (1) Abdominal pain Status: Acute (2) Constipation Status: Acute (3) Elevated lactic acid level Status: Acute Comment: not sepsis History of Present Illness Date of Admission: 12/11/16 Chief Complaint: Abdominal pain and constipation The patient is a 76 year old M with past history of coronary artery disease status post CABG, lung cancer status post lobectomy left 6 years ago, bladder tumor, retention, hyperlipidemia, GERD, presented to the emergency department for evaluation of crampy abdominal pain and bloating. He reports pebbly stools for the last few days. He took a non-stimulant laxative this morning. He has had no nausea vomiting or diarrhea. He has danielle d problems with bowel evacuation for several years. He is followed at the [facility] in [place] for surveillance of his lung cancer. ED evaluation: Temp 96, 96.5, heart rate 47-61, BP 97/54, improved 125/64 , and MAP 68-84, respirations 14-18, 99% room air CBC is acceptable without left shift, white count 9.9, hemoglobin 13.9, platelet 138K BMP is unrevealing, creatinine 1.23, random glucose 137, lactic ac id 2.3, calcium 10.1 Chest x-ray reveals basilar scarring, stable granulomas, blunting of left costophrenic angle, no acute infiltrate CT chest revealed infiltrate in the right lower lobe compared with prior exam, consider early pneumonia versus progressive scarring, reticulosis, large amount of fecal material in the sigmoid colon and lower descending colon ED course: Morphine sulfate 4 mg IV, 6 mg I V, Zofran 4 mg IV, fluid bolus, Levaquin 750 mg IV Patient is referred for further care. Upon seeing the patient, he is nontoxic-appearing. He meets 1 out of 4 SIRS criteria but does not meet sepsis cr iteria. He denies cough, sputum, shortness of breath, pleuritic pain, leg pain, orthopnea, PND, fevers chills, rash, upper respiratory symptoms, dysuria. Past Medical History Past Medical History ( Chronic Problems): Chronic Problems Benign hypertension (Chronic) Bladder cancer (Chronic) HLD (hyperlipidemia) (Chronic) History of coronary artery disease (Chronic) History of nephrolithiasis (Chroni c) Pulmonary nodules (Chronic) Allergies No Known Allergies Allergy (Verified 12/11/16 13:41) Home Medications: Ambulatory Orders Medication Instructions Recorded Surgical History: coronary byp ass surgery, - - lower lobe lobectomy due to malignant Smoking Status: Former smoker - *Family History Paternal History Items: Heart Disease Review of Systems Gastrointestinal: Reports: Abdominal P ain, Constipation, - - Bloating VTE Information - Inpt Only VTE Present on Admission: No VTE Mechan Device Prophylaxis: SCD's VTE Pharm Prophylaxis ordered?: Yes Patient Problems: Active and Suspected Problems Abdominal pain (Acute) Constipation (Acute) Elevated lactic acid level (Acute) not sepsis - Physical Exam General: Alert, Oriented x3, Cooperative Oral: Moist Mucosa Neck: Supple, No JVD Mary Ellen ngs: Clear to auscultation, - - Dry Crackles right base Cardiovascular: Regular rate, Regular Rhythm, Normal S1, Normal S2, - - No healed sternotomy scar Abdomen: Bowel Sounds Present, - - Gaseous diste ntion, mild tenderness in the lower quadrants and full of stool, no organomegaly. Rectal examination no fecal impaction, external skin tags Extremities: No edema Skin: No rashes, No breakdown Neurologic al: - - Nonfocal Psych/Mental Status: Normal Affect, Appropriate Vital Signs Temp Pulse Resp BP Pulse Ox 96.5 F 61 14 91/77 96 12/11/16 14:48 12/11/16 16:25 12/11/16 16:25 12/11/16 16:25 12/11/16 16:25 Oxygen Delivery Method Room Air Weight: 210 lb Body Mass Index (BMI) 30.1 Laboratory Tests Past 24 Hrs WBC 9.9 RBC 4.48 L Hgb 13.9 Hct 40.6 MCV 90.6 MCH 31.0 MCHC 34.2 RDW 12.7 RDW Differential 41 .9 Plt Count 138 L EKG reveals sinus bradycardia, incomplete left bundle branch block, nonspecific ST changes, no acute ischemic changes Chest x-ray and CAT scan images are personally reviewed Asses sment/Plan Active and Suspected Problems Abdominal pain (Acute) Constipation (Acute) Elevated lactic acid level (Acute) not sepsis The patient is a 76 year old M with past history of coronary artery disease status post CABG, lung cancer status post lobectomy left 6 years ago, bladder tumor, retention, hyperlipidemia, GERD, presented to the emergency department for evaluation of crampy abdominal pa in and bloating. He reports pebbly stools for the last few days. He took a non- stimulant laxative this morning. He has had no nausea vomiting or diarrhea. He has had problems with bowel evacuation for s everal years. He is followed at the [facility] in [place] for surveillance of his lung . cancer. He was last admitted about a year ago for aspiration pneumonia; at that time, modified barium swallow was unre vealing. He had echocardiogram 12/10/2015 which revealed normal LV systolic function, EF 60%, mildly enlarged left atrium, no significant valvular abnormalities, RVSP 44. Patient demonstrates elevated lactic acid, NOS, not sepsis. CAT scan images indicate significant stool burden in the sigmoid and left colon. He may benefit from decompression from below with a gentle soapsuds enema. The patient is a greeable to same. He did receive empiric treatment for the possibility of pneumonia in ED; in retrospect, due to lack of symptoms, no sputum, no cough, no dyspnea, excellent saturations, normal CBC, thi s seems clinically more consistent with atelectasis/scar. 1. Abdominal pain 2. Constipation 3. Elevated lactic acid,NOS, not sepsis 4. Sinus bradycardia in the setting of beta-azalia therapy 5. Hypote nsion,NOS, asymptomatic, in the setting of multiple blood pressure medications Chronic medical issues of CAD, hypertension, lung cancer status post lobectomy left, treated at [facility], bladder tumor, stable Plan: Observe on telemetry Gentle hydration Gentle soapsuds enema Liquid diet as tolerated, may advance as tolerated Repeat lactic acid Hold parameters placed on blood pressure medication s (hold for systolic blood pressure less than 120) DVT prophylaxis with subcu heparin Plan of care discussed with patient and at bedside who voiced understanding 12/11/161703 <Electronic ally signed by Marie Edmond MD> Date Marie Edmond MD Cosigner Signature (if applicable): Date __ CC: Marie Edmond MD; Rosana Davis DO Signed 11-Dec-2016 Emergency Department Summary Result: Comments: See Note; NOTES: [facility] Medical Records Department [address] [place] [address] Emergency Department Summary 12/11/16 1604 MR#: [id number] Acct: [id number] Name: GEORGE VANN Rep #: [id number] : 1940 76 From: Sumanth Franco MD PCP: Rosana Davis DO Status: REG ER - ER Visit Summary Date of Service: 12/11/16 Chief Complaint: Abrupt onset of abdominal pain with distention. Patient denies vomiting, diarrhea or constipation. History of Present Illness: The patient is a 76 M resents with acute onset of abdominal pain. He does not appear well. He compl ains of significant pain. He has never had pain like this before. He localizes the pain to the right and left lower quadrant. He denies fever, chills or night sweats. He denies rhinorrhea, postnasal ness inage or sore throat. He does complain of shortness of breath. Initially I did not ask if he had a cough. After reviewing CAT scan results asked if he has had a cough and he admits that he has. He also admits that he has had pneumonia in the past. Patient denies any ocular, visual or auditory symptoms. Patient denies any chest pain. Patient denies history of PE or DVT. He denies any leg pain, swellin g or discoloration. He denies any dysuria, frequency, urgency or hematuria. He denies history of diverticulitis. He denies history of ulcer or perforation. He denies history of small bowel obstruction. He does have history of hernia repair and 6 vessel bypass surgery. There is also history of bladder cancer and nephrolithiasis. Physical Examination: She appears pale uncomfortable. Vital signs were in itially remarkable for bradycardia and low blood pressure which may be a vagal response. His systolic was above 90 and his mean arterial is above 65. Head is atraumatic normocephalic. Pupils are equal r ound reactive. Extraocular muscles are intact. TMs are pearly white with landmarks noted. Nares patent with no drainage. Posterior pharynx without erythema or exudate. Uvula is midline. There is no dysp honia or dysphasia. Trachea is midline. There is no stridor with auscultation of the neck. Heart is regular with a normal S1 and S2. There is no murmur, gallop or rub. Patient has rales at both bases. A bdomen is distended tympanitic with tenderness and guarding. There is no rebound tenderness. He has a rectus diastases noted. There is no inguinal lymphadenopathy. There is no CVA tenderness noted. He i s alert oriented with a nonfocal neurologic exam Test Results: White count is remarkable for platelet count of 138,000. Likely pills marked for BUN 33 with a creatinine 1.23 and GFR 61. Glucose is 137. Lactate is 2.3. CT the abdomen was obtained with p.o. and IV contrast. There is evidence of diverticulosis and what I believe to be a right lower lobe pneumonia. Case was discussed with Dr. Armstrong. He is in agreement with my assessment. Emergency Department Course and Treatment: Initial concern was for perforation. Upright chest x-ray was obtained with no evidence of free air. Since his lactate elevated concern for an intra-abdominal process. CT of the abdomen and pelvis was ordered to evaluate for intra-abdominal process. Treatment Plan: Is evidence of diverticulosis and fecal stasis. Marilyn heredia has a right lower lobe infiltrate and was treated with levofloxacin for community choir pneumonia.Since patient was tachypnic hypothermic and has a source with an elevated lactate he has severe sepsis Disposition: Was discussed with hospitalist who will admit to PCU Impression: 1. Community acquired pneumonia 2. Severe sepsis with hypotension that was fluid responsive 3. History of coronary diseas e 4. History of hypertension 5. History of bladder cancer ED Disposition - Plan for ED Patient: Chief Complaint: Abd Pain Referrals: Rosana Davis, DO [Primary Care Provider] - What to do if you have Problems For any increased pain, shortness of breath, bleeding, nausea or vomiting, chest pain, or any unexpected problems, contact your Primary Care Provider. Call [facility] ([phone]) or report to the closest Emergency Room. Call 911 if necessary. 12/11/16 1611 <Electronically signed by Sumanth Franco MD> Date Sumanth Franco MD Cosigner Signature (If Indicated): Date CC: Rosana Davis DO 11-Dec-2016 Abdomen/Pelvis WITH Contrast Result: Comments: See Note; NOTES: [facility] Imaging Services [address] [place] [address] Abdomen/Pelvis WITH Contrast MR#: [id number] Acct: [id number] Name: GEORGE VANN Rep # : [id number] : 1940 M 76 From: Jake Bazzi MD PCP: Rosana Davis DO Status: REG ER Study: Abdomen/Pelvis WITH Contrast Date of Exam: 12/11/16 Exam# [id number] Ordering Dr: Sumanth Franco MD STUDY: CT ABDOMEN AND PELVIS WITH CONTRAST REASON FOR EXAM: Male, 76 years old. Lower abdominal pain. History of bladder cancer as well as left lower lobe lung cancer and partial resection. RADIATI ON DOSAGE (If Supplied By Facility): CTDIvol = ( 18.49 ) mGy, DLP = ( 1157.98 ) mGycm TECHNIQUE: Transaxial images were obtained from the dome of the diaphragm to the symphysis pubis with oral contrast . 100 ml of Isovue 300 contrast was administered. Sagittal and coronal images were reconstructed. Individualized dose optimization techniques were used for this CT. COMPARISON: Comparison is made with prior study dated April 20, 2012. FINDINGS: Since prior study, there has been progressive infiltration in the right lower lobe. This may represent either early p neumonic infiltration versus progressive scarring. Stable pleural thickening at the left lung base. Cardiomegaly. Coronary artery calcification. Normal liver. Normal gallbladder and extrahepatic biliar y system. Normal spleen. Normal pancreas. Normal bilateral adrenal glands. There is a 1.5 cm cyst in the mid lateral portion of the right kidney as well as a similar-appearing cyst in the posteromedia l aspect of the right kidney. There is a 5 mm nonobstructive calculus in the lower pole calyx of the left kidney. No evidence of hydronephrosis. Stable 2.3 cm cyst in the lateral portion of the left kid matilde. Moderate sized hiatal hernia. Normal small intestine. There are multiple colonic diverticula consistent with diverticulosis. Large amount of fecal material is seen in the sigmoid colon as well as in the lower descending colon. The appendix is visualized and appears normal. There is diffuse atherosclerotic calcification of the abdominal aorta and its major visceral branches, without a demonstrat ed aneurysm. Normal inferior vena cava. Normal retroperitoneum. Normal urinary bladder. There are prostatic calcifications. Normal abdominal wall. There are diffuse degenerative changes of the visuali zed lumbar spine. CT/Abdomen/Pelvis WITH Contrast IMPRESSION: Progress infiltrate in the right lower lobe. This may represent a new pneumonic inf iltrate. Bilateral renal cysts. Nonobstructive left 5 mm calculus. Hiatal hernia. Large amount of fecal material is seen within the sigmoid colon and descending colon. Electronically Signed: Jake harry MD at 16:07 EDT Tel [phone], Service support , CC: Rosana Davis DO; Sumanth Franco MD Automated Weaver: Signed 11-Dec-2016 Chest 1 View (Portable) Result: Comments: See Note; NOTES: [facility] Imaging Services [address] [place] [address] Chest 1 View (Portable) MR#: [id number] Acct: [id number] Name: GEORGE VANN Rep #: [id number] : 1940 76 From: Jake Bazzi MD PCP: Rosana Davis DO Status: REG ER Study: Chest 1 View (Portable) Date of Exam: 12/11/16 Exam# [id number] Ordering Dr: Sumanth Franco MD STUDY: X-RAY CHEST REASON FOR EXAM: Male, 76 years old. Chest pain. TECHNIQUE: Single AP portable view of the chest. COMPARISON: Comparison is made with prior study dated July 04, 2016. FINDINGS: EKG electrodes are seen. Stable calcified granulomas. Stable mild increased markings at the bases suggestive of scarring. Stable blunting of the left costophrenic angle. There is no demonstrated pleural abnormality. Sternal cerclage wires and vascular clips are present from a prior sternotomy and coronary artery bypass graft procedure (CABG). Normal mediastinum and babak. No rmal visualized pulmonary arteries. There is atherosclerotic calcification of the aortic arch with tortuosity. There are diffuse degenerative changes of the visualized thoracic spine. Normal visualized ribs, clavicles, and shoulders. There is no demonstrated abnormality of the visualized soft tissue structures of the upper abdomen. RAD/Chest 1 View (Portable) IMPRESSION: Stable examination. Mild degree of bibasilar scarring and blunting of the left costophrenic angle. Stable appearance of the calcified granulomas. Electronically Signed: Alexis Bazzi MD at 14:43 EDT Tel [phone], Service support , CC: Rosana Davis DO; Sumanth Franco MD Automated Weaver: Signed 21-Aug-2016 Operative Report Result: Comments: See Note; NOTES: [facility] Medical Records Department [address] [place] [address] Operative Report 08/21/16 1138 MR#: [id number] Acct: [id number] Name: YOUNG VANN AM Tania Rep #: [id number] : 1940 75 From: Butch Peres MD PCP: Rosana Davis DO Status: REG CLI Y Location: [facility] Operative Report (Blank) Date of Procedure: 08/20/16 Exercise myocardial perfusi on stress test 75-year-old man with a history of shortness of breath and previous coronary artery bypass surgery. EKG demonstrates sinus bradycardia with a rate of 56 bpm, and a blood pressure of 146/ 84 mmHg. Myocardial perfusion protocol Patient exercised according to the regular David protocol for a total duration of 3 minutes. The patient got significantly fatigued and therefore the test was te rminated and changed to a pharmacologic myocardial perfusion stress test. 0.4 mg of adenosine was infused per usual protocol followed by rapid intravenous saline flush injection continuous EKG monitorin g was performed. The patient maintained sinus rhythm throughout the recording with frequent premature ventricular complexes in a pattern of bigeminy. At rest there were no ST or T-wave changes noted sug gest abnormal flow reserve and at peak infusion no ST or T-wave changes were noted to suggest abnormal flow reserve. The maximum heart rate attained was 75 bpm which was 51% of maximum predicted heart r ate maximum workload attained was 1 MET. The resting blood pressure was 160/82 Myocardial perfusion protocol 11.9 mCi of technetium 99m sestamibi was injected at rest and 0.4 mg of reticulocyte adenosi ne was then infused per usual protocol and at peak infusion of 34.4 mCi of sestamibi was injected. Stress and resting images were reconstructed and compared in the short axis vertical long and horizonta l long axis. Gated images were also obtained. Review of the images demonstrate normal uptake of tracer noted in all areas of the myocardium. No areas of reversibility are noted suggest ischemia or previ ous infarct. Gated SPECT analysis Gated ejection fraction is noted to be 62% with no wall motion abnormalities noted Conclusion Normal pharmacologic myocardial perfusion stress test Preserved ejectio n fraction 08/21/16 1144 <Electronically signed by Butch Peres MD> Date Butch Peres MD CC: Butch Peres MD; Rosana Davis DO Signed 04-Jul-2016 Chest PA and Lateral Result: Comments: See Note; NOTES: [facility] Imaging Services [address] [place] [address] Verdana 4d Chest PA and Lateral MR#: [id number] Acct: [id number] Name: GEORGE VANN p #: [id number] : 1940 M 75 From: Ari Baker MD PCP: Rosana Davis DO Status: REG CLI Study: Chest PA and Lateral Date of Exam: 07/04/16 Exam# [id number] Ordering Dr: Rosana Davis DO STUDY: X-RAY CHEST REASON FOR EXAM: Male, 75 years old. Coughing blood TECHNIQUE: Single frontal view of the chest. COMPARISON: CTA Chest Dec 08 2015 2:31PM FIND INGS: Chronic appearing increased interstitial lung markings. Multiple median sternotomy wires are noted consistent for cardiac surgery. Stable calcified nodules of the right lung. There is no demonstr ated pleural abnormality. Normal heart size. Normal mediastinum and babak. Normal visualized pulmonary arteries. There is atherosclerotic calcification of the aortic arch with tortuosity. There are diff use degenerative changes of the visualized thoracic spine. There is degenerative osteoarthritis of the bilateral shoulders. There is no demonstrated abnormality of the visualized soft tissue structures of the upper abdomen. RAD/Chest PA and Lateral IMPRESSION: There are no acute findings. Electronically Signed: Ari Baker MD at 23:52 EDT , Service support , CC: Rosana Davis DO Automated Weaver: Signed 04-Jul-2016 Chest PA and Lateral Result: Comments: See Note; NOTES: [facility] Imaging Services [address] [place] [address] Verdana 4d Chest PA and Lateral MR#: [id number] Acct: [id number] Name: GEORGE VANN Louisa p #: [id number] : 1940 M 75 From: Ari Baker MD PCP: Rosana Davis DO Status: REG CLI Study: Chest PA and Lateral Date of Exam: 07/04/16 Exam# [id number] Ordering Dr: Rosana Davis DO ADDENDUM by Ari Baker on 07/04/16 at 2357 RAD/Chest PA and Lateral IMPRESSION: There are no acute findings. Electronically Signed: Ari Baker MD at 23:57 EDT Tel , Service support , 07/05/16 0004 Date cc: Rosana Davis DO * Signed ADDENDUM by Ari Baker on 07/04/16 at 2357 ADDENDUM STUDY: X-RAY CHEST REASON FOR EXAM: Male, 75 years old. Coughing blood TECHNIQUE: Frontal and lateral views of the chest. COMPARISON: CTA Chest Dec 08 2015 2:31PM FINDINGS: Chronic appearing increased interstitial lung markings. Multiple median sternotomy wires are noted consi stent for cardiac surgery. Stable calcified nodules of the right lung. There is no demonstrated pleural abnormality. Normal heart size. Normal mediastinum and babak. Normal visualized pulmonary arterie s. There is atherosclerotic calcification of the aortic arch with tortuosity. There are diffuse degenerative changes of the visualized thoracic spine. There is degenerative osteoarthritis of the bilater al shoulders. There is no demonstrated abnormality of the visualized soft tissue structures of the upper abdomen. 07/04/167 Date cc: Rosana ac DO * Signed STUDY: X-RAY CHEST REASON FOR EXAM: Male, 75 years old. Coughing blood TECHNIQUE: Single frontal view of the chest. COMPARISON: CTA Chest Dec 08 2015 2:31PM FINDINGS: Chronic appearing increased interstitial lung markings. Multiple median sternotomy wires are noted consistent for cardiac surgery. Stable calcified nodules of the right lung. T here is no demonstrated pleural abnormality. Normal heart size. Normal mediastinum and babak. Normal visualized pulmonary arteries. There is atherosclerotic calcification of the aortic arch with tortuos ity. There are diffuse degenerative changes of the visualized thoracic spine. There is degenerative osteoarthritis of the bilateral shoulders. There is no demonstrated abnormality of the visualized sof t tissue structures of the upper abdomen. RAD/Chest PA and Lateral IMPRESSION: There are no acute findings. Electronically Signed: Ari Baker MD at 23:52 EDT , Service support , CC: Rosana Davis DO Automated Weaver: Signed 08-Feb-2016 Kidney and Bladder Result: Comments: See Note; NOTES: [facility] Imaging Services [address] [place] [address] Verdana 4d Kidney and Bladder MR#: [id number] Acct: [id number] Name: GEORGE VANN Tania Rep #: [id number] : 1940 M 75 From: Jake Bazzi MD PCP: Wes Hernandez Status: REG CLI Study: Kidney and Bladder Date of Exam: 02/08/16 Exam# [id number] Ordering Dr: Yandel Murrieta MD STUDY: RENAL ULTRASOUND - COMPLETE REASON FOR EXAM: Male, 75 years old. Renal stones. History of bladder cancer. TECHNIQUE: Ultrasound evaluation of the kidneys was performed with real-time and static [facility] imaging. COMPARISON: Comparison is made with prior CT scan and abdomen dated April 20, 2012. FINDINGS: RIGHT KIDNEY: Normal location of the right kidney, w hich is normal in size. The right kidney measures 11.5 cm x 4.8 cm x 6.1 cm. There is a normal cortex of the right kidney. The renal cortex measures 1.8 cm. 2 small cysts are seen. The larger measures 1 .3 cm x 1.1 cm x 1.1 cm. There is a 9 mm x 9 mm x 7 mm nonobstructive intrarenal calculus. There is no right hydronephrosis. DISTAL RIGHT URETER: There is non- visualization of the distal right ureter. There is no demonstrated right ureterovesical junction calculus. There is no demonstrated right ureteral jet. LEFT KIDNEY: Normal location of the left kidney, which is normal in size. The left kidney m easures 11.6 cm x 4.3 cm x 5.3 cm. There is a normal cortex of the left kidney. The renal cortex measures 1.4 cm. 2 cysts are seen. The larger measures 2.3 cm x 2.1 cm x 2.1 cm. There are 2 nonobstructi ve intrarenal calculi. The larger measures 6 mm x 8 mm x 4 mm. There is no left hydronephrosis. DISTAL LEFT URETER: There is non-visualization of the distal left ureter. There is no demonstrated left u reterovesical junction calculus. There is no demonstrated left ureteral jet. BLADDER: The bladder is not adequately distended for evaluation. US /Kidney and Bladder IMPRESSION: Small bilateral renal cysts and nonobstructive intrarenal calculi. Electronically Signed: Jake Bazzi MD at 15:02 EST Tel [phone], Service support [phone], CC: Yandel Murrieta MD; Wes Hernandez Automated Weaver: Signed 01-Feb-2016 6 Minute Walk Test Result: Comments: See Note; NOTES: [facility] Pulmonary Services/Neurology [address] [place] [address] MR#: [id number] Acct: [id number] Name: GEORGE VANN Rep #: [id number] : 1940 75 From: Sigifredo Best DO Referring Dr: Liliam Mcintosh NP Date: Ordering Dr: Sex: M C Location: PSN PSN 6 Minute Walk Test - 6 Minute Walk Test 6 Minute Walk Test: 6 Minute Walk Test P SN:6-Minute Walk Test Start: 01/31/16 12:55 Freq: Status: Active Document 01/31/16 12:55 DELMY (Rec: 01/31/16 13:03 AUDREYON [id number]) 6 Minute Walk Test Date Performed 01/31/16 Time Performed 12:40 Gisella ht 1.78 m Weight: 95.254 kg Weight in Pounds 210.[address]: Sigifredo Best Assistive device used: None Pre-test Oxygen Delivery Method Room Air Pulse Ox 93 Pulse Rate (beats/min) 60 Dyspnea Dexter Sc maxwell (0-10) 0 Exertion Dexter Scale (6-20) 6 1st minute Oxygen Delivery Method Room Air Pulse Ox 92 Pulse Rate (beats/min) 68 2nd minute Oxygen Delivery Method Room Air Pulse Ox 90 Pulse Rate (beats/min) 6 9 3rd minute Oxygen Delivery Method Room Air Pulse Ox 89 Pulse Rate (beats/min) 78 4th minute Oxygen Delivery Method Room Air Pulse Ox 87 Pulse Rate (beats/min) 78 Dyspnea Dexter Scale (0-10) 3 5th minute Oxygen Delivery Method Room Air Pulse Ox 95 Pulse Rate (beats/min) 72 6th minute Oxygen Delivery Method Room Air Pulse Ox 93 Pulse Rate (beats/min) 79 Dyspnea Dexter Scale (0-10) 1 Exertion Dexter Scale (6 -20) 12 Post-test Oxygen Delivery Method Room Air Pulse Ox 97 Pulse Rate (beats/min) 60 Full Laps Walked 21 Partial Lap, Number of Tiles Walked 95 Total Distance Walked (ft) 1334 01/31/16 12:58 Cardiopu lmonary Services by Love García Pt's SpO2 dropped to 87% by the 4th minute, SpO2 held at 87% for 30 seconds or more. As soon as the patient stopped he went back up to 90% in less that 30 seconds. Pt s tates he refuses to wear oxygen and does not want anyone called about setting it up because he will not wear it. Liliam Mcintosh [employer] is aware. Initialized on 01/31/16 12:58 - END OF NOTE - Interp retation Interpretation: The patient ambulated 1334 feet over the course of 6 minutes on room air without assistive devices. Pretesting oxygen saturation was noted to be 93%. By minute four of ambulatio n, the patient had recent cherrie oxygen saturation of 87%. He rested for approximately 30 seconds with improvement in oxygen saturation back up to 90%. The patient then completed the remaining 2 minutes of the walk test without issue. Of note, supplemental oxygen was not applied to the patient as he adamantly verbalized that he would not wear it and refused to allow for home oxygen delivery. - Recomm endations Recommendations: Supplemental oxygen would be indicated with ambulation. However, the patient has adamantly refused to utilize oxygen and will therefore not allow for an appropriate titration. 02/01/16830 <Electronically signed by Sigifredo Best DO> Date Sigifredo Best DO CC: Date Dictated: 02/01/16826 Date Transcribed: 02/01/16826 Automated Weaver: Sigifredo Best DO Signed 10-Dec-2015 Operative Report Result: Comments: See Note; NOTES: [facility] Medical Records Department [address] [place] [address] Operative Report MR#: [id number] Acct: [id number] Name: GEORGE VANN Rep #: [id number] : 1940 75 From: Yandel Murrieta MD PCP: Wes Hernandez Status: [facility] DATE OF SERVICE: 12/07/2015 DATE OF SERVICE: December 07, 2015 PREOPERATIVE DIAGNOSIS: Left kidney stone. POS TOPERATIVE DIAGNOSES: Bilateral kidney stones and bladder tumor. SURGEON: Yandel Murrieta M.D. PROCEDURES: Cystoscopy; transurethral resection of the bladder tumor, medium in size; balloon dilatio n of the right ureteral orifice and right retrograde pyelogram and right ureteroscopy and laser lithotripsy of the right kidney stone and right stent placement; left retrograde pyelogram; left ureterosc opy; laser of the left kidney stones and left stent placement. FINDINGS IN THE SURGERY: Tumor in the trigone of the bladder and stones in both kidneys. INDICATIONS: This is a 75-year-old male, who I s aw in the office with the CAT scan that showed a fairly large stone in the left kidney that was symptomatic. At that point, I recommended we take him to surgery to do laser lithotripsy of the stone. DE SCRIPTION OF PROCEDURE: The patient was taken back to the operating room. After smooth induction of general anesthesia, he was placed in dorsal lithotomy position. I went into the bladder with a 21-Fren ch rigid cystourethroscope and immediately recognized that there was a tumor above the left ureteral orifice and there was also tumor involving the trigone and around the right ureteral orifice, so at t his point, I took a cold cup biopsy forceps of the first tumor above the left ureteral orifice and cauterized this site with a Bugbee. I then put in a resectoscope and I did a transurethral resection of the entire tumor that was in the trigone area overlying the right ureteral orifice, but in order to avoid injury to the orifice, I placed a Glidewire to assist me in keeping the orifice open and not __ __ the orifice. After resecting his entire tumor, I looked around the entire bladder and did not see any more tumors inside the bladder and then because it looked like there might be tumors coming from the right ureteral orifice I decided to do ureteroscopy on the right side. Over the wire, I went in with the flexible ureteroscope, but I was not able to go up the ureter since it was too tight, so I pu t a balloon dilator up the right ureter and balloon dilated the distal right ureter. After this was performed, then I was able to get into the distal ureter with an 8-Maltese flexible ureteroscope and we performed ureteroscopy and a retrograde pyelogram. I checked the upper pole, midpole and lower pole and the only finding was a stone in the lower pole of the kidney, no tumors and there were no tumors along the course of the ureter. I then proceeded and laser treated that stone in lower pole of the kidney with laser lithotripsy using a 270-micron laser fiber. Once this stone was lasered into little t iny pieces, then I went down the ureter and we put a stent up on the right side. I then turned my attention to the left side. On the left side, I placed a Glidewire up in the left kidney and over the Gl idewire, I placed an access sheath under fluoroscopic guidance and then once this was performed, then I went up to the access sheath with a flexible ureteroscope, I then encountered 2 very large stones in the pelvis of the left kidney and then using a 270-micron laser fiber, energy settings were at 0.4 joules and 20 Hz, I lasered the first stone into little tiny pieces and then I found a second stone behind the first stone and lasered that one into little tiny pieces. Once both stones were treated to my satisfaction that all into little pieces that should pass on their own. I worked my way down the ureter. There were no tumors or abnormalities along the course of the ureter. I removed the access sheath and then performed a retrograde pyelogram and then placed a stent on the right side. Once this w as completed, I drained the bladder, evacuated any clots or anything in the bladder, checked the bladder again, both stents were in good position. There were no other tumors in the bladder, but there wa s an area of resection from the original tumor that was in the bladder. He did also have a history of a TURP and he did have a TUR defect within the prostatic fossa, but no tumors were seen within the p rostatic fossa. The patient's anesthetic is currently being reversed. I then go talk to the family regarding the condition. Plan is to see him back in 2 weeks to get the stents out. We will left the allie nt stay in for 2 weeks to let everything heal up. Yandel Murrieta MD T: NTS JOB: [id number] 12/10/15 0800 <Electronically signed by Yandel Murrieta MD> Date Yandel Murrieta MD Cosigner Signature (If Indicated): Date CC: Yandel Murrieta MD; Wes Hernandez Date Dictated: 1449 Date Transcribed: 12/07/151449 Automated Weaver: Signed 08-Dec-2015 Emergency Department Summary Result: Comments: See Note; NOTES: [facility] Medical Records Department [address] [place] [address] Emergency Department Summary 12/08/15 1208 MR#: [id number] Acct: [id number] Name: GEORGE VANN Rep #: [id number] : 1940 75 From: Sumanth Franco MD PCP: Wes Hernandez Status: REG ER - ER Visit Summary Date of Service: 12/08/15 Chief Complaint: Heartburn History of Present Illness: The patient is a 75 M who presents with heartburn that was noted upon awakening after urologic procedure yesterday. He localizes the pain to the epigastric right upper quadrant with radiation to the throat with sour eructation. Discomfort is worse when he is supine. He took Pepcid without improvement. He did not take any antacids. He denies any chest pain per se. He denies any leg pain, swe lling or discoloration. Denies shortness of breath at rest or with activity. He denies any radiation of the discomfort. He denies hematemesis, melena hematochezia. He does have a history of GERD. He has at risk for PE since he had surgery yesterday it took 2 hours and history of cancer. He denies any fever, chills or night sweats. He has no other complaints Physical Examination: It appears no distres s. Vital signs that were noted were unremarkable. I was informed at 1211 that his pulse ox is only 88% on room air. HEENT exam is unremarkable. Lungs clear to auscultation. Heart is regular. He does hav e epigastric right upper quadrant discomfort. Negative Dickinson sign. He has no flank discomfort. No dermatologic lesions noted. Lower external exam for swelling, discoloration, asymmetry, ligament disten tion, palpable cords is in the distribution deep venous system. Neuro exam is nonfocal. Test Results: EKG was obtained and reveals a sinus rhythm rate of 64 with a left axis/left anterior fascicular bl ock. This is unchanged from October 16, 2012. CTA of the chest to evaluate for pulmonary embolus reveals a pleural effusion on the left and a right lower lobe infiltrate. Since patient had surgery yeste rday concerned he aspirated. Blood cultures were obtained as well as lactate. He will receive 3.0 g of Unasyn IV piggyback. Emergency Department Course and Treatment: To evaluate his heartburn indigest ion with history of coronary disease hypertension and former smoker EKG and troponin were obtained. In light of the low pulse ox a chest x-ray was ordered. If there is no pulmonary process to explain hi s hypoxia patient will need a CTA since he is high risk for pulmonary embolus. I was informed at 1216 it patient very anxious. Patient reports history of anxiety. He cannot explain why he is presently anxious. Patient was informed he needs further testing to evaluate his low oxygen level. He became more anxious. A milligram of Ativan was ordered. Disposition: Admission to the hospital Impression: 1 . Respiratory failure with hypoxia 2. Right lower lobe pneumonia, aspiration 3. Left pleural effusion 4. Heartburn secondary to reflux 5. History of coronary disease 6. History of hypertension 7. Histor y of cholesteremia 7. Recent diagnosis of bladder cancer ED Disposition - Plan for ED Patient: Chief Complaint: Chest Pain What to do if you have Problems For any increased pain, shortness of lisa ath, bleeding, nausea or vomiting, chest pain, or any unexpected problems, contact your Primary Care Provider. Call [facility] ([phone]) or report to the closest Emergency Room. Call 911 if n ecessary. 12/08/15 7017 <Electronically signed by Sumanth Franco MD> Date Sumanth Franco MD Cosigner Signature (If Indicated): Date __ CC: Wes Hernandez; Valeriy Bravo MD 08-Dec-2015 CTA Chest W/WO Contrast Result: Comments: See Note; NOTES: [facility] Imaging Services [address] [place] [address] Verdana 4d CTA Chest W/WO Contrast MR#: [id number] Acct: [id number] Name: GEORGE VANN Tania Rep #: [id number] : 1940 M 75 From: Mariusz Goodson MD PCP: Wes Hernandez Status: [facility] ER Study: CTA Chest W/WO Contrast Date of Exam: 12/08/15 Exam# [id number] Ordering Dr: Sumanth Franco MD STUDY: CTA CHEST REASON FOR EXAM: Male, 75 years old. Chest pain and heartburn. Status post placement of urinary stents. History of CABG. RADIATION DOSAGE (If Supplied By Facility): CTDIvol = ( 16.55 ) mGy, DLP = ( 840.64 ) mGycm TECHNIQUE: The examination was performed with the intravenous administration of 100mL ml of Isovue 300 contrast material. Post-processing of the angiographic images was performe d, with multiplanar reformation and 3D reconstruction. Individualized dose optimization techniques were used for this CT. COMPARISON: None. FINDINGS: Normal enhan cement of the main pulmonary artery and right and left pulmonary arteries. There is limited enhancement of the bilateral peripheral pulmonary arteries. There is no demonstrated pulmonary embolism. Ther e is atherosclerotic calcification of the aortic arch with tortuosity. There is suboptimal enhancement of the thoracic aorta. Normal heart and pericardium. Sternal cerclage wires and vascular clips ar e present from a prior sternotomy and coronary artery bypass graft procedure (CABG). Normal mediastinum. There is a prominent node in the left hilar region measuring about 1.4 cm. Normal visualized tr achea and bronchi. The lungs are well expanded. The lungs are somewhat hyperinflated. There is an infiltrate in the right lower lobe. There are atelectatic changes in both lung bases. There is a 1 cm n oncalcified nodule in the superior segment of the right lower lobe (image 159 series 2). There is another 1 cm nodule in the right middle lobe(image 136 series 2). There is a 5 mm nodule in the superior segment of the left lower lobe (image 131 series 2). There is small left pleural effusion. Normal chest wall structures. There are mild degenerative changes in the spine. The visualized portions of the upper abdomen demonstrate partially visualized bilateral renal stents. CT/CTA Chest W/WO Contrast IMPRESSION: No evidence of pulmonary embo lism. Right lower lobe infiltrate and mild atelectatic changes. Small left pleural effusion. Few nonspecific and noncalcified nodules in the lower lungs as described above. Metastases cannot be excluded . Electronically Signed: Mariusz Goodson MD at 15:16 EDT Tel , Service support [phone], CC: Wes Hernandez; Sumanth Franco MD Automated Weaver: Signed 08-Dec-2015 Chest PA and Lateral Result: Comments: See Note; NOTES: [facility] Imaging Services [address] [place] [address] Verdana 4d Chest PA and Lateral MR#: [id number] Acct: [id number] Name: GEORGE VANN #: [id number] : 1940 M 75 From: Poornima Mohan MD PCP: Wes Hernandez Status: REG ER Study: Chest PA and Lateral Date of Exam: 12/08/15 Exam# [id number] Ordering Dr: Sumanth Franco MD STUDY: X-RAY C HEST REASON FOR EXAM: Male, 75 years old. Hypoxia. TECHNIQUE: PA and lateral views of the chest. COMPARISON: Chest radiograph dated August 07, 2015. FINDINGS: Cardi ac monitoring leads are present. Patient has had a sternotomy. The lungs are expanded. There is bilateral basilar dependent atelectasis. There may be a calcified nodule at the right lung base, similar to the previous study that measures approximately 12.8 mm. The lungs are otherwise clear. There is no demonstrated pleural abnormality. There are calcifications of the coronary arteries. There are calc ified mediastinal and hilar lymph nodes. There is prominence of the pulmonary hilar arteries without peripheral pulmonary vascular congestion. There is atherosclerotic calcification of the aortic arch w ith tortuosity. There is demineralization of the osseous structures. Normal visualized ribs, clavicles, and shoulders. There is no demonstrated abnormality of the visualized soft tissue structures of the upper abdomen. RAD/Chest PA and Lateral IMPRESSION: 1. Postoperative changes of the radiographic evidence of acute cardiopulmonary disease. 2. Sequela of previous granulomatous infection. Electronically Signed: Poornima Mohan MD at 12:52 EDT , Service support [phone], CC: Wes Hernandez ; Sumanth Franco MD Automated Weaver: Signed 07-Dec-2015 Operative Report Result: Comments: See Note; NOTES: [facility] Medical Records Department [address] [address] Operative Report 12/07/15 1442 MR#: [id number] Acct: [id number] Name: ARIE VANN Rep #: [id number] : 1940 75 From: Yandel Murrieta MD PCP: Wes Hernandez Status: REG [facility] [place] [facility] Location: [place] [address] Report of Operation Date of Procedure: 12/07/15 Pre-Operative Diagnosis: lef t kidney stone Post-Operative Diagnosis: left kidney stone, right kidney stone. bladder tumors Surgery/Procedure Performed:: cystoscopy, transuretheral resection of bladder tumor medium size ,. balloon dilation of right ureteral orfice, right retrograde pyelogram. right ureterscopy and laser stones, right stent. Left retrograde pyelogram, left ureteroscopy and laser of kidney stone, left stent placeme nt. Description of Surgical Findings:: tumor in bladder, stones in both kidneys Type of Anesthesia:: General Anesthesiologist: Camilo Mathis Drains: b/l stent - Admit VTE Documentation VTE Present on Admi ssion: No VTE Mechan Device Prophylaxis: SCD's VTE Pharm Prophylaxis ordered?: No Reason prophylaxis not ordered:: Treatment Not Indicated 12/07/15 1445 <Electronically signed by Yandel Murrieta MD> Date Yandel Murrieta MD CC: Yandel Murrieta MD; Wes Hernandez Signed 07-Dec-2015 Discharge Instruction Result: Comments: See Note; NOTES: [facility] Medical Records Department [address] [place] [address] Instructions for Home/Discharge Instructions 12/07/15 1300 MR#: [id number] Acct: [id number] Name: GEORGE VANN Rep #: [id number] : 1940 75 From: Yandel Murrieta MD PCP: Wes Hernandez Status: REG [facility] [place] Diet: Light diet - advance as tolerated Discharge Activity: M ay Not Drive - for 2 days., [address] not [address] while taking narcotic pain medications. Instructions: Treating Kidney Stones: Ureteroscopic Stone Removal Allergies/Adverse Reactions: Allergies No Known Aller gies Allergy (Verified 12/04/15 14:06) Medications to take at Discharge Albuterol Inhaler [Ventolin Hfa (SP)] 1 - 2 puff INHALATION Q4H PRN PRN 12/04/15 Amlodipine [Norvasc] 10 mg PO DAILY 12/04/15 Aspirin E.C. [Ecotrin] 81 mg PO DAILY@0800 12/04/15 Benazepril HCl 40 mg PO BID 12/04/15 Hydrochlorothiazide 25 mg PO DAILY 12/04/15 Isosorbide Mononitrate [Imdur] 60 mg PO DAILY 12/04/15 Metoprolol Tar trate [Lopressor (Beta Azalia)] 25 mg PO DAILY 12/04/15 Omeprazole [Prilosec] 20 mg PO BID 12/04/15 Pravastatin [Pravachol] 40 mg PO DAILY 12/04/15 Sertraline HCl [Zoloft] 50 mg PO DAILY 12/04/15 Valsa rtan [Diovan] 160 mg PO BID 12/04/15 Ciprofloxacin [Cipro] 500 mg PO BID #6 tablet 12/07/15 Hydrocodone/Acetaminophen [Vicodin 5-300 mg Tablet] 1 tablet PO Q6H PRN PRN #14 tablet 12/07/15 The followi ng prescriptions were given: Hydrocodone/Acetaminophen [Vicodin 5-300 mg Tablet] 1 tablet PO Q6H PRN PRN #14 tablet PRN Reason: Pain Ciprofloxacin [Cipro] 500 mg PO BID #6 tablet Please Follow Up With: Yandel Murrieta When: in 2 weeks, please call to make an appointment. 12/07/15 1302 <Electronically signed by Yandel Murrieta MD> Date Yandel Murrieta MD CC: Wes Hernandez 07-Dec-2015 Abdomen Single View Result: Comments: See Note; NOTES: [facility] Imaging Services [address] [place] [address] Verdana 4d Abdomen Single View MR#: [id number] Acct: [id number] Name: GEORGE VANN Re p #: [id number] : 1940 M 75 From: Gilbert Kyle MD PCP: Wes Hernandez Status: [facility] Study: Abdomen Single View Date of Exam: 12/07/15 Exam# [id number] Ordering Dr: Yandel Murrieta MD STUDY: X -RAY - ABDOMEN/PELVIS REASON FOR EXAM: Male, 75 years old. PRE OP SURGERY,LEFT KIDNEY STONE TECHNIQUE: Two AP supine views of the abdomen and pelvis. COMPARISON: None. ____ FINDINGS: Normal visualized lung bases. There is an unremarkable bowel gas pattern. There is no demonstrated free abdominal air. The visualized liver, spleen are grossly normal in size and morph ology. Left kidney stones are noted the largest measures 20 mm. Normal soft tissue structures. Normal visualized osseous structures. RAD/Abdome n Single View IMPRESSION: Left kidney stones are noted the largest measures 20 mm. Electronically Signed: Gilbert Kyle MD at 12:22 EDT Tel , Service support [phone], CC: Yandel Murrieta MD; Wes Hernandez Automated Weaver: Signed 29-Aug-2015 Carotid Duplex Ultrasound Result: Comments: See Note; NOTES: [facility] Cardiovascular Services [address] [place] [address] Carotid Duplex Ultrasound 08/28/15 1255 MR#: [id number] Acct: [id number] Name: GEORGE VANN Rep #: [id number] : 1940 74 From: Manny Rodriguez MD Attending Dr: Wes Hernandez Status: REG CLI Ordering Dr: Wes Hernandez Date: 08/28/15 Location: [facility] Sex: M C Admi tted: Reason For Study: Carotid stenosis Rt. Velocities/BP Lt. Velocities/BP Prox CCA 93.2/15.2 cm/sec. Prox CCA 83.3/13.5 cm/sec. Mid CCA 79.2/14.7 cm/sec. Mid CCA 85.0/16.4 cm/sec. Dist CC A 78.0/13.5 cm/sec. Dist CCA 76.8/18.8 cm/sec. Prox ICA 73.9/22.9 cm/sec. Prox ICA 67.4/23.5 cm/sec. Mid ICA 69.8/19.9 cm/sec. Mid ICA 79.7/26.4 cm/sec. Dist ICA 48.2/14.9 cm/sec. Dist ICA 51.0/17.0 cm/sec. Rt. ICA/CCA = .93. Lt. ICA/CCA = .94. Prox ECA 90.9/7.0 cm/sec. Prox ECA 59.7/9.6 cm/sec. Rt. Vert. 26.9/6.7 cm/sec. Lt. Vert. 42.2/15.2 cm/sec. Right Extracranial There is intimal thicken ing but no significant atherosclerotic plaque noted in the right common carotid artery. There is heterogeneous, irregular atherosclerotic plaque noted in the right internal carotid artery. The athero sclerotic plaque causes acoustic shadowing. There is intimal thickening but no significant atherosclerotic plaque noted in the right external carotid artery. Antegrade flow is noted in the right patience tebral artery. Left Extracranial There is heterogeneous, irregular atherosclerotic plaque noted in the left common carotid artery. There is heterogeneous, irregular atherosclerotic plaque noted in the left internal carotid artery. There is intimal thickening but no significant atherosclerotic plaque noted in the left external carotid artery. Antegrade flow is noted in the left vertebral arter y. Interpretation Summary Mild (<50%) stenosis right extracranial internal carotid. Mild (<50%) stenosis left extracranial internal carotid. Flow within the vertebral arteries is an tegrade bilaterally. Ordering Physician: Wes Hernandez Performed By: Julita Rodriguez RVT E lectronically signed by: MD Manny Rodriguez on 08/29/2015 11:22 AM 08/29/15 1122 Date Manny Rodriguez MD CC: Wes Hernandez Date Dictated: 08/27 1255 Date Transcribed: 08/29/15 1122 Automated Weaver: Signed 09-Aug-2015 Echocardiogram Complete Result: Comments: See Note; NOTES: [facility] Cardiovascular Services [address] [place] [address] Echo Complete 08/09/15 1357 MR#: [id number] Acct: [id number] Name: GEORGE RANDALL Rep #: [id number] : 1940 74 From: Butch Peres MD Attending Dr: Butch Peres MD Status: REG CLI Ordering Dr: Butch Peres MD Date: 08/09/15 Location: [facility] Sex: M C Admitted: Reason For Study: SOB Procedure This was a 2D Doppler, Color Flow transthoracic echocardiogram. The study was technically difficult. Due to body habitus, patient had difficulty tolerating probe pressure. Unable to utilize Definity for optimal imaging due to KNOWN PFO. Exam performed in department. Left Ventricle Normal LV size. Left ventricular systolic function is normal. The estimated ej ection fraction is 55 %. No regional wall motion abnormalities noted. Right Ventricle Normal RV size. Normal systolic function. Atria The left atrium is mildly enlarged. Normal right atrium. M itral Valve Normal mitral valve. Tricuspid Valve Normal tricuspid valve. Mild to moderate (1-2+) tricuspid valve insufficiency. Pulmonary artery systolic pressure is 38 mmHg. Aortic Valve Trisin us/trileaflet aortic valve. Mild focal aortic valve calcification. Pulmonic Valve Normal pulmonic valve. Great Vessels Normal aortic root. The pulmonary artery is normal size. Normal inferior vena cava. Pericardium/Pleural No pericardial effusion. MMode/2D Measurements AND Calculations LVIDd: 5.4 cm IVSd: 1.2 cm Ao root diam: 3.3 cm LVIDs: 3.8 cm LVPWd: 1.1 cm LA dimension: 3.7 cm RVDd: 3.7 cm FS: 29.5 % LAV(MOD-bp): 74.6 ml LA A4 area: 23.6 cm2 RA A4 area: 18.1 cm2 LAV(MOD-bp) Indexed: 35.1 ml/m2 LA V(MOD-sp2): 75.2 ml LAV(MOD-sp4): 72.5 ml Doppler Measurements AND Calculations MV E max adryan: 47.4 cm/sec Lat Peak E' Adryan: 13.9 cm/sec Med Peak E' Adryan: 6.1 cm/sec MV A max adryan: 58.3 cm/sec E/E' lat: 3.4 E/E' med: 7.7 MV E/A: 0.81 Ao V2 max: 175.2 cm/sec LV V1 max: 101.3 cm/sec PA V2 max: 115.2 cm/sec Ao max P.3 mmHg LV V1 max P.1 mmHg TR max adryan: 293.5 cm/sec TR max P.5 mmHg Interpretation Summary Normal LV s ize. Left ventricular systolic function is normal. The estimated ejection fraction is 55 %. Mild to moderate (1-2+) tricuspid valve insufficiency. Pulmonary artery systolic pressure is 38 mmHg. _ Ordering Physician: Butch Peres Referring Physician: Wes Hernandez Performed By: Bridgett Bowman, SARWAT, RVT 08/09/15 1527 Date Butch Peres MD CC: Wes Hernandez Date Dictate d: 08/09/15 1357 Date Transcribed: 08/09/15 1527 Automated Weaver: Signed 07-Aug-2015 Chest PA and Lateral Result: Comments: See Note; NOTES: [facility] Imaging Services [address] [place] [address] Verdana 4d Chest PA and Lateral MR#: [id number] Acct: [id number] Name: GEORGE VANN Rep #: [id number] : 1940 M 74 From: Jake Bazzi MD PCP: Wes Hernandez Status: REG CLI Study: Chest PA and Lateral Date of Exam: 08/07/15 Exam# [id number] Ordering Dr: Butch Peres MD STUDY: X-RAY CHEST REASON FOR EXAM: Male, 74 years old. Several month history of shortness of breath. TECHNIQUE: PA and lateral views of the chest. COMPARISON: Comparison is made wit h prior examination dated March 19, 2015. FINDINGS: Stable increased markings at the lung bases suggestive of bibasilar scarring. This is more prominent on t he left side. Stable right pulmonary granulomas. There is no demonstrated pleural abnormality. Sternal cerclage wires and vascular clips are present from a prior sternotomy and coronary artery bypas s graft procedure (CABG). Normal mediastinum and babak. Normal visualized pulmonary arteries. There is atherosclerotic calcification of the aortic arch with tortuosity. Normal visualized thoracic spi ne. Normal visualized ribs, clavicles, and shoulders. There is no demonstrated abnormality of the visualized soft tissue structures of the upper abdomen. IMPRE SSION: Stable examination. Electronically Signed: Jake Bazzi MD at 11:08 EDT Tel [phone], Service support [phone], RAD/Chest PA and Lateral IMPRESSION: Stable examination. Electronically Signed: Jake Bazzi MD at 11:08 EDT Tel [phone], Service support [phone], CC: Wes Hernandez Automated Weaver: Signed 24-Jul-2015 Spirometry (44297) Result: 19-Mar-2015 Chest PA and Lateral Result: Comments: See Note; NOTES: [facility] Imaging Services [address] [place] [address] Verdana 4d Chest PA and Lateral MR#: [id number] Acct: [id number] Name: GEORGE VANN Rep #: [id number] : 1940 M 74 From: Peggy Mari MD PCP: Parul Rice MD Status: REG CLI Study: Chest PA and Lateral Date of Exam: 03/19/15 Exam# [id number] Ordering Dr: Torie Fletcher DO STUDY: X-RAY CHEST REASON FOR EXAM: Male, 74 years old. pneumonia, cough, sob TECHNIQUE: PA and lateral views of the chest. COMPARISON: October 15, 2012 chest x-ray and [address] exam also gives a history of lung cancer with left lower lobe resection. FINDINGS: There is hyperinflation of the lungs consistent with c hronic obstructive lung disease (COPD). There appear dense nodules in association with the right lung laterally, the nodule at the level of the mid hilar level measures approximately 1.1 cm and the o ther which is more inferiorly located overlying the anterior sixth right rib on frontal view measures approximately 0.9 cm. These were present previously. , Prior CT exam October 16, 2012 there is sub tle intrinsic calcification and they may represent granuloma. There is blunting of the left costophrenic angle which is chronic and may relate to the prior history of partial lung resection.. Hernandez al cerclage wires are present from a prior sternotomy. Heart size is normal. Normal mediastinum and babak. Normal visualized pulmonary arteries. There is atherosclerotic tortuosity of the aortic arch a nd descending thoracic aorta. There are diffuse degenerative changes of the visualized thoracic spine. Normal visualized ribs, clavicles, and shoulders. There is no demonstrated abnormality of the visualized soft tissue structures of the upper abdomen. IMPRESSION: Suspect COPD. There appear stable dense right lung nodules. No demonstrated acute cardiopul monary process. Electronically Signed: Peggy Mari MD at 19:14 EST Tel , Service support [phone], RAD/Chest PA and Lateral IMPRESSION: Suspect COPD. There appear stable dense right lung nodules. No demonstrated acute cardiopulmonary process. Electronically Signed: Peggy Mari MD at 19:14 EST Tel , Service support [phone], CC: Parul Rice MD; Torie Fletcher DO Automated Weaver: Signed 11-Oct-2014 Carotid Duplex Ultrasound Result: Comments: See Note; NOTES: [facility] Cardiovascular Services [address] [place] [address] Carotid Duplex Ultrasound 10/11/14 0906 MR#: [id number] Acct: [id number] Na me: GEORGE VANN Rep #: [id number] : 1940 73 From: Manny Rodriguez MD Attending Dr: Rossana Vieira Status: REG CLI Ordering Dr: Rossana Vieira Date: 10/11/14 Location: [facility] Sex: M C Admitted: Rt. Velocities/BP Lt. Velocities/BP Prox CCA 68.4/7.86 cm/sec. Prox CCA 77.4/15.5 cm/sec. Mid CCA 72.7/14.5 cm/sec. Mid CCA 87.9/19.2 cm/sec. Dist CCA 71.5/16.1 cm/sec. Dist CCA 82.0/ 18.4 cm/sec. Prox ICA 63.3/16.9 cm/sec. Prox ICA 57.4/13.7 cm/sec. Mid ICA 86.4/26.3 cm/sec. Mid ICA 72.4/25.0 cm/sec. Dist ICA 77.2/22.4 cm/sec. Dist ICA 148.0/43.2 cm/sec. Rt. ICA/CCA = 1.2. Lt. I CA/CCA = 1.7. Prox ECA 59.7/6.68 cm/sec. Prox ECA 63.7/11.2 cm/sec. Lt. Vert. 42.6/13.3 cm/sec. Right Extracranial There is heterogeneous, irregular atherosclerotic plaque noted in the right commo n carotid artery. There is heterogeneous, smooth atherosclerotic plaque noted in the right internal carotid artery. There is no significant atherosclerotic plaque noted in the right external carotid artery. Antegrade flow is noted in the right vertebral artery. Acoustic shadowing. Left Extracranial There is heterogeneous, irregular atherosclerotic plaque noted in the left common carotid milagros ry. There is heterogeneous, irregular atherosclerotic plaque noted in the left internal carotid artery. There is no significant atherosclerotic plaque noted in the left external carotid artery. Ante grade flow is noted in the left vertebral artery. Acoustic shadowing. Procedure Carotid Duplex 15782. The exam was diagnostic. Exam performed in department. Interpretation Summary Mild (< 50%) stenosis right extracranial internal carotid. Mild (<50%) stenosis left extracranial internal carotid. Flow within the vertebral arteries is antegrade bilaterally. Ordering Physician: Rossana Vieira Referring Physician: Praul Rice M.D. Performed By: Bridgett Bowman, SARWAT, R VT 10/11/14 1037 Date Manny Rodriguez MD CC: Parul Rice MD; Rossana Pickett ay Date Dictated: 10/11/14 0906 Date Transcribed: 10/11/14 1037 Automated Weaver: Signed 01-Sep-2014 Esophagus Only Result: Comments: See Note; NOTES: [facility] Imaging Services [address] [place] [address] Radiology Report MR#: [id number] Acct: [id number] Name: GEORGE VANN Rep #: [id number] : 1940 M 73 From: Jake Bazzi MD PCP: Parul Rice MD Status: REG CLI Study: Esophagus Only Date of Exam: 09/01/14 Exam# [id number] Ordering Dr: Gato Willson MD STUDY: X-RAY - ESOPHAGUS (BARIUM SWALLOW) WITH FLUOROSCOPY REASON FOR EXAM: Male, 73 years old. Dysphagia. TECHNIQUE: Multiple view(s) of the esophagus were obtained following swallowing of barium. FLU OROSCOPY TIME (if supplied): (0:29) minutes/seconds COMPARISON: None. FINDINGS: There is no demonstrated esophageal foreign body. There is no demonstrated stri cture or mucosal abnormality. Moderate-sized hiatal hernia. There is no evidence of gastroesophageal reflux. The patient ingested a 12 mm tablet of barium without any difficulty. There is atheroscle rotic tortuosity of the aortic arch and descending thoracic aorta. Normal visualized pulmonary parenchyma. There are diffuse degenerative changes of the visualized thoracic spine. IMPRESSION: Moderate sized hiatal hernia with no evidence of gastroesophageal reflux. Electronically Signed: Jake Bazzi MD at 9:22 EDT Tel [phone], Servi ce support [phone], RAD/Esophagus Only IMPRESSION: Moderate sized hiatal hernia with no evidence of gastroesophageal reflux. 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 Exercise History Comments: Light Status: Active Living Situation Comments: Lives with spouse, Status: Active No Drug Use Status: Active Non Smoker/No Tobacco Use Comments: quit 1993--smoke 30 years, pack a day Status: Active Vital Signs Date Test Result Details :43 Temperature 97.8 f Comments: Method: Temporal Pulse 82 /min Comments: Pattern: Regular Respiration Rate 17 /min Comments: Pattern: Unlabored O2 SAT 90 % Comments: Room air BP Systolic 138 mm[Hg] Comments: Patient Position: Sitting; Cuff Location: Left Arm; Cuff Size: Standard BP Diastolic 82 mm[Hg] Comments: Patient Position: Sitting; Cuff Location: Left Arm; Cuff Size: Standard Weight 211.375 lb Height 69.5 in Body Mass Index Calculated 30.77 kg/m2 Body Surface Area Calculated 2.13 m2 :31 Pulse 68 /min Comments: Pattern: Regular Respiration Rate 18 /min Comments: Pattern: Unlabored O2 SAT 94 % Comments: Room air BP Systolic 122 mm[Hg] Comments: Patient Position: Sitting; Cuff Location: Left Arm; Cuff Size: Large BP Diastolic 62 mm[Hg] Comments: Patient Position: Sitting; Cuff Location: Left Arm; Cuff Size: Large Weight 200.5 lb Height 69.5 in Body Mass Index Calculated 29.18 kg/m2 Body Surface Area Calculated 2.08 m2 :28 Pulse 68 /min Comments: Pattern: Regular Respiration Rate 18 /min Comments: Pattern: Unlabored O2 SAT 93 % Comments: Room air BP Systolic 138 mm[Hg] Comments: Patient Position: Sitting; Cuff Location: Left Arm; Cuff Size: Large BP Diastolic 82 mm[Hg] Comments: Patient Position: Sitting; Cuff Location: Left Arm; Cuff Size: Large Weight 214 lb Height 69.5 in Body Mass Index Calculated 31.15 kg/m2 Body Surface Area Calculated 2.14 m2 :27 Comments: not [place] Temperature 98.6 f Pulse 76 /min Comments: Pattern: Regular Respiration Rate 17 /min Comments: Pattern: Unlabored O2 SAT 95 % Comments: Room air BP Systolic 142 mm[Hg] Comments: Patient Position: Sitting; Cuff Location: Left Arm; Cuff Size: Standard BP Diastolic 78 mm[Hg] Comments: Patient Position: Sitting; Cuff Location: Left Arm; Cuff Size: Standard Weight 209 lb Height 69.5 in Body Mass Index Calculated 30.42 kg/m2 Body Surface Area Calculated 2.12 m2 :09 Temperature 98.2 f Comments: Method: Temporal Respiration Rate 16 /min Comments: Pattern: Unlabored O2 SAT 96 % Comments: Room air BP Systolic 132 mm[Hg] Comments: Patient Position: Sitting; Cuff Location: Left Arm; Cuff Size: Standard BP Diastolic 76 mm[Hg] Comments: Patient Position: Sitting; Cuff Location: Left Arm; Cuff Size: Standard Weight 212 lb Height 69.5 in Body Mass Index Calculated 30.86 kg/m2 Body Surface Area Calculated 2.13 m2 :13 Temperature 98 f Comments: Method: Temporal Pulse 77 /min Comments: Pattern: Regular Respiration Rate 15 /min Comments: Pattern: Unlabored O2 SAT 94 % Comments: Room air BP Systolic 160 mm[Hg] Comments: Patient Position: Sitting; Cuff Location: Left Arm; Cuff Size: Standard BP Diastolic 92 mm[Hg] Comments: Patient Position: Sitting; Cuff Location: Left Arm; Cuff Size: Standard Weight 211 lb Height 69.5 in Body Mass Index Calculated 30.71 kg/m2 Body Surface Area Calculated 2.12 m2 :04 Pulse 82 /min Comments: Pattern: Regular Respiration Rate 16 /min Comments: Pattern: Unlabored O2 SAT 98 % Comments: Room air BP Systolic 140 mm[Hg] Comments: Patient Position: Sitting; Cuff Location: Left Arm; Cuff Size: Standard BP Diastolic 62 mm[Hg] Comments: Patient Position: Sitting; Cuff Location: Left Arm; Cuff Size: Standard Weight 215 lb Height 69.5 in Body Mass Index Calculated 31.29 kg/m2 Body Surface Area Calculated 2.14 m2 :16 Comments: glacomma checks 3 years ago Temperature 97.1 f Comments: Method: Temporal Respiration Rate 16 /min Comments: Pattern: Unlabored O2 SAT 97 % Comments: Room air BP Systolic 134 mm[Hg] Comments: Patient Position: Sitting; Cuff Location: Left Arm; Cuff Size: Standard BP Diastolic 80 mm[Hg] Comments: Patient Position: Sitting; Cuff Location: Left Arm; Cuff Size: Standard Weight 215 lb Height 69.5 in Body Mass Index Calculated 31.29 kg/m2 Body Surface Area Calculated 2.14 m2 :57 Temperature 97.5 f Comments: Method: Temporal Pulse 67 /min Comments: Pattern: Regular Respiration Rate 16 /min Comments: Pattern: Unlabored O2 SAT 98 % Comments: Room air BP Systolic 128 mm[Hg] Comments: Patient Position: Sitting; Cuff Location: Left Arm; Cuff Size: Standard BP Diastolic 78 mm[Hg] Comments: Patient Position: Sitting; Cuff Location: Left Arm; Cuff Size: Standard Weight 216 lb Height 69.5 in Body Mass Index Calculated 31.44 kg/m2 Body Surface Area Calculated 2.15 m2 :49 Temperature 97.5 f Comments: Method: Temporal Pulse 66 /min Comments: Pattern: Regular Respiration Rate 16 /min Comments: Pattern: Unlabored O2 SAT 96 % Comments: Room air BP Systolic 172 mm[Hg] Comments: Patient Position: Sitting; Cuff Location: Left Arm; Cuff Size: Standard BP Diastolic 80 mm[Hg] Comments: Patient Position: Sitting; Cuff Location: Left Arm; Cuff Size: Standard Weight 216 lb Height 69.5 in Body Mass Index Calculated 31.44 kg/m2 Body Surface Area Calculated 2.15 m2 :47 Temperature 98.2 f Comments: Method: Temporal Pulse 62 /min Comments: Pattern: Regular Respiration Rate 16 /min Comments: Pattern: Unlabored O2 SAT 98 % Comments: Room air BP Systolic 120 mm[Hg] Comments: Patient Position: Sitting; Cuff Location: Left Arm; Cuff Size: Standard BP Diastolic 74 mm[Hg] Comments: Patient Position: Sitting; Cuff Location: Left Arm; Cuff Size: Standard Weight 216 lb Height 69.5 in Body Mass Index Calculated 31.44 kg/m2 Body Surface Area Calculated 2.15 m2 :13 Temperature 97.7 f Comments: Method: Oral Pulse 60 /min Comments: Pattern: Regular Respiration Rate 15 /min O2 SAT 96 % Comments: Room air BP Systolic 128 mm[Hg] Comments: Patient Position: Sitting; Cuff Location: Left Arm; Cuff Size: Standard BP Diastolic 70 mm[Hg] Comments: Patient Position: Sitting; Cuff Location: Left Arm; Cuff Size: Standard Weight 212 lb Height 69.5 in Body Mass Index Calculated 30.86 kg/m2 Body Surface Area Calculated 2.13 m2 :52 Pulse 65 /min Comments: Pattern: Regular Respiration Rate 16 /min Comments: Pattern: Unlabored O2 SAT 94 % Comments: Room air BP Systolic 142 mm[Hg] Comments: Patient Position: Sitting; Cuff Location: Left Arm; Cuff Size: Standard BP Diastolic 68 mm[Hg] Comments: Patient Position: Sitting; Cuff Location: Left Arm; Cuff Size: Standard Weight 212 lb Height 69.5 in Body Mass Index Calculated 30.86 kg/m2 Body Surface Area Calculated 2.13 m2 :31 Temperature 97.6 f Comments: Method: Oral Pulse 60 /min Comments: Pattern: Regular Respiration Rate 18 /min Comments: Pattern: Unlabored O2 SAT 95 % Comments: Room air BP Systolic 126 mm[Hg] Comments: Patient Position: Sitting; Cuff Location: Left Arm; Cuff Size: Standard BP Diastolic 74 mm[Hg] Comments: Patient Position: Sitting; Cuff Location: Left Arm; Cuff Size: Standard Weight 209 lb Height 69.5 in Body Mass Index Calculated 30.42 kg/m2 Body Surface Area Calculated 2.12 m2 :20 Temperature 97.9 f Comments: Method: Oral Pulse 64 /min Comments: Pattern: Regular Respiration Rate 18 /min Comments: Pattern: Unlabored BP Systolic 158 mm[Hg] Comments: Patient Position: Sitting; Cuff Location: Left Arm; Cuff Size: Standard BP Diastolic 82 mm[Hg] Comments: Patient Position: Sitting; Cuff Location: Left Arm; Cuff Size: Standard Weight 211 lb Height 69.5 in Body Mass Index Calculated 30.71 kg/m2 Body Surface Area Calculated 2.12 m2 :34 Temperature 97 f Comments: Method: Oral Pulse 60 /min Comments: Pattern: Regular Respiration Rate 16 /min Comments: Pattern: Unlabored BP Systolic 136 mm[Hg] Comments: Patient Position: Sitting; Cuff Location: Left Arm; Cuff Size: Large BP Diastolic 82 mm[Hg] Comments: Patient Position: Sitting; Cuff Location: Left Arm; Cuff Size: Large Weight 217.3125 lb Height 69.5 in Body Mass Index Calculated 31.63 kg/m2 Body Surface Area Calculated 2.15 m2 :39 Temperature 98.5 f Comments: Method: Oral Pulse 60 /min Comments: Pattern: Regular Respiration Rate 16 /min Comments: Pattern: Unlabored BP Systolic 120 mm[Hg] Comments: Patient Position: Sitting; Cuff Location: Left Arm; Cuff Size: Large BP Diastolic 70 mm[Hg] Comments: Patient Position: Sitting; Cuff Location: Left Arm; Cuff Size: Large Weight 208 lb Height 69.5 in Body Mass Index Calculated 30.28 kg/m2 Body Surface Area Calculated 2.11 m2 :10 Temperature 97.9 f Comments: Method: Oral Pulse 64 /min Comments: Pattern: Regular Respiration Rate 18 /min Comments: Pattern: Unlabored BP Systolic 130 mm[Hg] Comments: Patient Position: Sitting; Cuff Location: Left Arm; Cuff Size: Standard BP Diastolic 84 mm[Hg] Comments: Patient Position: Sitting; Cuff Location: Left Arm; Cuff Size: Standard Weight 208 lb Height 69.5 in Body Mass Index Calculated 30.28 kg/m2 Body Surface Area Calculated 2.11 m2 :10 Temperature 97.5 f Pulse 60 /min Comments: Pattern: Regular Respiration Rate 16 /min Comments: Pattern: Unlabored BP Systolic 162 mm[Hg] Comments: Patient Position: Sitting; Cuff Location: Left Arm; Cuff Size: Standard BP Diastolic 86 mm[Hg] Comments: Patient Position: Sitting; Cuff Location: Left Arm; Cuff Size: Standard Weight 208 lb Height 69.5 in Body Mass Index Calculated 30.28 kg/m2 Body Surface Area Calculated 2.11 m2 :31 Temperature 97.9 f Comments: Method: Oral Pulse 68 /min Comments: Pattern: Regular Respiration Rate 20 /min Comments: Pattern: Unlabored BP Systolic 160 mm[Hg] Comments: Patient Position: Sitting; Cuff Location: Left Arm; Cuff Size: Standard BP Diastolic 80 mm[Hg] Comments: Patient Position: Sitting; Cuff Location: Left Arm; Cuff Size: Standard Weight 213 lb Height 73 in Body Mass Index Calculated 28.1 kg/m2 Body Surface Area Calculated 2.21 m2 :10 Temperature 98.2 f Comments: Method: Oral Pulse 64 /min Comments: Pattern: Regular Respiration Rate 18 /min Comments: Pattern: Unlabored BP Systolic 128 mm[Hg] Comments: Patient Position: Sitting; Cuff Location: Left Arm; Cuff Size: Standard BP Diastolic 80 mm[Hg] Comments: Patient Position: Sitting; Cuff Location: Left Arm; Cuff Size: Standard Weight 213 lb Height 73 in Body Mass Index Calculated 28.1 kg/m2 Body Surface Area Calculated 2.21 m2 :22 Temperature 97.4 f Comments: Method: Oral Pulse 62 /min Comments: Pattern: Regular Respiration Rate 16 /min Comments: Pattern: Unlabored BP Systolic 128 mm[Hg] Comments: Patient Position: Sitting; Cuff Location: Left Arm; Cuff Size: Standard BP Diastolic 80 mm[Hg] Comments: Patient Position: Sitting; Cuff Location: Left Arm; Cuff Size: Standard Weight 216 lb Height 71 in Body Mass Index Calculated 30.13 kg/m2 Body Surface Area Calculated 2.18 m2 :43 Temperature 97.1 f Comments: Method: Oral Pulse 66 /min Comments: Pattern: Regular Respiration Rate 17 /min Comments: Pattern: Unlabored BP Systolic 148 mm[Hg] Comments: Patient Position: Sitting; Cuff Location: Left Arm; Cuff Size: Standard BP Diastolic 88 mm[Hg] Comments: Patient Position: Sitting; Cuff Location: Left Arm; Cuff Size: Standard Weight 216 lb Height 71 in Body Mass Index Calculated 30.13 kg/m2 Body Surface Area Calculated 2.18 m2 :32 Temperature 98 f Comments: Method: Undefined Pulse 64 /min Comments: Pattern: Regular Respiration Rate 18 /min Comments: Pattern: Undefined BP Systolic 156 mm[Hg] Comments: Patient Position: Sitting; Cuff Location: Left Arm; Cuff Size: Standard BP Diastolic 86 mm[Hg] Comments: Patient Position: Sitting; Cuff Location: Left Arm; Cuff Size: Standard Weight 216 lb Height 71 in Body Mass Index Calculated 30.13 kg/m2 Body Surface Area Calculated 2.18 m2 Head Circumference 0.00 cm :47 Temperature 98.2 f Comments: Method: Undefined Pulse 60 /min Comments: Pattern: Regular Respiration Rate 16 /min Comments: Pattern: Undefined BP Systolic 132 mm[Hg] Comments: Patient Position: Sitting; Cuff Location: Right Arm; Cuff Size: Standard BP Diastolic 78 mm[Hg] Comments: Patient Position: Sitting; Cuff Location: Right Arm; Cuff Size: Standard Weight 0 lb Height 0 in Head Circumference 0.00 cm :16 Temperature 97.2 f Comments: Method: Undefined Pulse 60 /min Comments: Pattern: Regular Respiration Rate 16 /min Comments: Pattern: Undefined BP Systolic 138 mm[Hg] Comments: Patient Position: Sitting; Cuff Location: Right Arm; Cuff Size: Large BP Diastolic 84 mm[Hg] Comments: Patient Position: Sitting; Cuff Location: Right Arm; Cuff Size: Large Weight 217 lb Height 0 in Head Circumference 0.00 cm :40 Temperature 97.8 f Comments: Method: Undefined Pulse 56 /min Comments: Pattern: Regular Respiration Rate 16 /min Comments: Pattern: Undefined BP Systolic 150 mm[Hg] Comments: Patient Position: Sitting; Cuff Location: Left Arm; Cuff Size: Large BP Diastolic 82 mm[Hg] Comments: Patient Position: Sitting; Cuff Location: Left Arm; Cuff Size: Large Weight 215 lb Height 0 in Head Circumference 0.00 cm :35 Pulse 70 /min Comments: Pattern: Regular Respiration Rate 17 /min Comments: Pattern: Unlabored BP Systolic 148 mm[Hg] Comments: Patient Position: Sitting; Cuff Location: Left Arm; Cuff Size: Standard BP Diastolic 82 mm[Hg] Comments: Patient Position: Sitting; Cuff Location: Left Arm; Cuff Size: Standard Weight 207 lb Height 0 in Head Circumference 0.00 cm :32 Temperature 98.3 f Comments: Method: Undefined Pulse 72 /min Comments: Pattern: Regular Respiration Rate 16 /min Comments: Pattern: Unlabored BP Systolic 146 mm[Hg] Comments: Patient Position: Sitting; Cuff Location: Left Arm; Cuff Size: Standard BP Diastolic 80 mm[Hg] Comments: Patient Position: Sitting; Cuff Location: Left Arm; Cuff Size: Standard Weight 0 lb Height 0 in Head Circumference 0.00 cm :25 Temperature 97.6 f Comments: Method: Oral Pulse 72 /min Comments: Pattern: Regular Respiration Rate 20 /min Comments: Pattern: Unlabored BP Systolic 150 mm[Hg] Comments: Patient Position: Sitting; Cuff Location: Left Arm; Cuff Size: Standard BP Diastolic 90 mm[Hg] Comments: Patient Position: Sitting; Cuff Location: Left Arm; Cuff Size: Standard Weight 207 lb Height 0 in Head Circumference 0.00 cm :22 Temperature 97.7 f Comments: Method: Undefined Pulse 88 /min Comments: Pattern: Regular Respiration Rate 20 /min Comments: Pattern: Undefined BP Systolic 100 mm[Hg] Comments: Patient Position: Undefined; Cuff Location: Undefined; Cuff Size: Undefined BP Diastolic 60 mm[Hg] Comments: Patient Position: Undefined; Cuff Location: Undefined; Cuff Size: Undefined Weight 0 lb Height 0 in Head Circumference 0.00 cm :13 Pulse 56 /min Comments: Pattern: Regular BP Systolic 136 mm[Hg] Comments: Patient Position: Sitting; Cuff Location: Left Arm; Cuff Size: Standard BP Diastolic 82 mm[Hg] Comments: Patient Position: Sitting; Cuff Location: Left Arm; Cuff Size: Standard Weight 209 lb Height 71 in Body Mass Index Calculated 29.15 kg/m2 Body Surface Area Calculated 2.15 m2 Head Circumference 0.00 cm Results Date Description Value Details [id number] Metabolic Panel, Comprehensive Comments: PATIENT NOT FASTINGPERFORMED BY: [id number] [facility] [id number] ([id number]) ALT (SGPT) 11 [iU]/L (Normal) Range: 0-44 AST (SGOT) 17 [iU]/L (Normal) Range: 0-40 Alkaline Phosphatase 72 [iU]/L (Normal) Range: 39-117 Bilirubin, Total 0.6 mg/dL (Normal) Range: 0.0-1.2 A/G Ratio 1.6 (Normal) Range: 1.2-2.2 Globulin, Total 2.8 g/dL (Normal) Range: 1.5-4.5 Albumin 4.6 g/dL (Normal) Range: 3.5-4.8 Protein, Total 7.4 g/dL (Normal) Range: 6.0-8.5 Calcium 10.5 mg/dL (Abnormal) Range: 8.6-10.2 Carbon Dioxide, Total 25 mmol/L (Normal) Range: 20-29 Chloride 97 mmol/L (Normal) Range: 96-106 Potassium 3.7 mmol/L (Normal) Range: 3.5-5.2 Sodium 139 mmol/L (Normal) Range: 134-144 BUN/Creatinine Ratio 23 (Normal) Range: 10-24 eGFR If Africn Am 74 mL/min/1.73 (Normal) eGFR If NonAfricn Am 64 mL/min/1.73 (Normal) Creatinine 1.11 mg/dL (Normal) Range: 0.76-1.27 BUN 26 mg/dL (Normal) Range: 8-27 Glucose 133 mg/dL (Abnormal) Range: 65-99 [id number] CBC, Platelets & Auto Diff Comments: PATIENT NOT FASTINGPERFORMED BY: [employer] [id number] [facility] [id number] ([id number]) Immature Grans (Abs) 0.0 {x10E3/uL} (Normal) Range: 0.0-0.1 Immature Granulocytes 0 % (Normal) Baso (Absolute) 0.0 {x10E3/uL} (Normal) Range: 0.0-0.2 Eos (Absolute) 0.2 {x10E3/uL} (Normal) Range: 0.0-0.4 Monocytes(Absolute) 0.5 {x10E3/uL} (Normal) Range: 0.1-0.9 Lymphs (Absolute) 2.5 {x10E3/uL} (Normal) Range: 0.7-3.1 Neutrophils (Absolute) 6.3 {x10E3/uL} (Normal) Range: 1.4-7.0 Basos 0 % (Normal) Eos 3 % (Normal) Monocytes 5 % (Normal) Lymphs 26 % (Normal) Neutrophils 66 % (Normal) Platelets 148 {x10E3/uL} (Abnormal) Range: 150-379 RDW 13.6 % (Normal) Range: 12.3-15.4 MCHC 35.0 g/dL (Normal) Range: 31.5-35.7 MCH 31.9 pg (Normal) Range: 26.6-33.0 MCV 91 fL (Normal) Range: 79-97 Hematocrit 43.4 % (Normal) Range: 37.5-51.0 Hemoglobin 15.2 g/dL (Normal) Range: 13.0-17.7 RBC 4.76 {x10E6/uL} (Normal) Range: 4.14-5.80 WBC 9.5 {x10E3/uL} (Normal) Range: 3.4-10.8 [id number] D-Dimer ([id number]) Comments: PATIENT NOT FASTINGPERFORMED BY: [facility] SystemSyscfl5923 [facility] [id number] D-Dimer 0.95 {mg/L_FEU} (Abnormal) Range: 0.00-0.49 Comments: According to the assay holder pile driving's published package insert, anormal (<0.50 mg/L FEU) D-dimer result in conjunction with a non-highclinical probability assessment, excludes deep vein thrombosis (D VT)and pulmonary embolism (PE) with high sensitivity. .D-dimer values increase with age and this can make VTE exclusion ofan older pop ulation difficult. To address this, the [employer], based on best available evidence and recent guidelines,recommends that clinicians use age-adjusted D-dimer thresholds inpatients gr eater than 50 years of age with: a) a low probability ofPE who do not meet all Pulmonary Embolism Rule Out Criteria, orb) in those with intermediate probability of PE. The formula for anage-adjusted D-d constance cut-off is age/100. For example, a 60 year oldpatient would have an age-adjusted cut-off of 0.60 mg/L FEU and an80 year old 0.80 mg/L FEU. :58 Lipid Profile Comments: [facility] [id number] [facility] [address] [place], [place], [id number] VLDL 21 mg/dL (Normal) Range: 5-40 LDL 93 mg/dL (Normal) Range: 0-130 HDL 41 mg/dL (Normal) Comments: The drugs N-Acetylcysteine and Metamizole may falselydepress this assay. Reference Range HDL <40 mg/dL Low HDL Cholesterol HDL >or= 60 mg/dL High HDL Cholesterol TRIG 106 mg/dL (Normal) Comments: The drugs N-Acetylcysteine and Metamizole may falselydepress this assay.Serum Triglycerides Reference Interval Normal <150 mg/dL Borderline high 150 - 199 mg/dL High 200 - 499 mg/dL Very High > or = 500 mg/dL CHOL 155 mg/dL (Normal) Comments: <200 mg/dL Desirable 200-240 mg/dL Borderline >240 mg/dL High Risk :58 Liver Profile Comments: [facility] [address] [place], [place], [id number] D BILI 0.12 mg/dL (Normal) Range: 0.00-0.30 T BILI 0.50 mg/dL (Normal) Range: 0.20-1.00 ALT 17 U/L (Normal) Range: 16-61 ALK P 71 U/L (Normal) Range: 45-117 AST 16 U/L (Normal) Range: 15-37 GLOB 3.8 g/dL (Normal) Range: 2.2-4.2 ALB 3.6 g/dL (Normal) Range: 3.2-5.0 T PROT 7.4 g/dL (Normal) Range: 6.4-8.2 [id number] LACTATE (LACTIC ACID) ([id number]) Comments: PATIENT NOT FASTINGPERFORMED BY: SH[facility] [address] [facility] [id number] Lactic Acid, Plasma 12.4 mg/dL (Normal) Range: 4.8-25.7 [id number] Lactic Acid Comments: Yes/No query for Sepsis Lactate Rule [facility] [id number] [place], [place], [phone] LACTIC ACID 2.3 mmol/L (Abnormal) Range: 0.4-2.0 Comments: Critical Result(s) Called at: 15:11:26 12/11/2016 by:Christen Moralez to [facility] [id number] Basic Metabolic Profile (BMP) Comments: [facility] [id number] [place], [place], [address] GAP 10 (Normal) Range: 5-15 CO2 27.0 mmol/L (Normal) Range: 21.0-32.0 CL 104 mmol/L (Normal) Range: 98-107 K 3.6 mmol/L (Normal) Range: 3.5-5.1 NA 141 mmol/L (Normal) Range: 136-145 CA 10.1 mg/dL (Normal) Range: 8.5-10.1 BUN/CRE 26.8 {RATIO} (Abnormal) Range: 10-20 Estimated CRCL 53.58 ml/min (Normal) EST GFR - AA 74 mL/min (Normal) Comments: GFR Calc EST GFR 61 mL/min (Normal) Comments: Non- GFR Calc CREAT,SERUM 1.23 mg/dL (Normal) Range: 0.70-1.30 Comments: The validity of the calculated GFR AND GFRAA in patients over70 years has not been determined. Clinical correlation isessential. BUN 33 mg/dL (Abnormal) Range: 7-18 GLU 137 mg/dL (Abnormal) Range: 70-110 Comments: Fasting Glucose result greater than or equal to 126 mg/dLsuggests DIABETES MELLITUS per A.D.A. criteria. [id number] CBC W/Diff, Automated Comments: [facility] [id number] [place], [address] Absolute Lymph 2.89 {X10_3/ul} (Normal) Range: 0.83-4.51 Absolute Neut 5.9 {X10_3/uL} (Normal) Range: 2.0-7.7 IM GRAN % 0.100 % (Normal) Range: 0.0-0.9 Comments: IG% - Immature Granulocytes (promyelocytes, myelocytes andmetamyelocytes) > 1% indicates that a LEFT SHIFT is Present. BASO% 0.3 % (Normal) Range: 0-1 EO% 3.4 % (Normal) Range: 0-5 MONO% 7.7 % (Normal) Range: 0-10 LY% 29.1 % (Normal) Range: 19-41 NEUT% 59.4 % (Normal) Range: 47-70 MPV 10.0 fL (Normal) Range: 6.2-12.0 PLT 138 K/mm3 (Abnormal) Range: 150-450 RDW SD 41.9 fL (Normal) Range: 35.1-43.9 RDW CV 12.7 % (Normal) Range: 11.6-14.6 MCHC 34.2 {g/gl} (Normal) Range: 32-36 MCH 31.0 pg (Normal) Range: 27.0-32.0 MCV 90.6 fL (Normal) Range: 80-94 HCT 40.6 % (Normal) Range: 40-54 HGB 13.9 g/dL (Normal) Range: 13.0-16.5 RBC 4.48 {M/mm3} (Abnormal) Range: 4.6-6.2 WBC 9.9 K/mm3 (Normal) Range: 4.4-11.0 [id number] Cytology, Body Fluid / CSF Comments: Specimen Source: [facility] [id number] [place], [address] CYTOLOGY,BF/CSF SEE PATHOLOGY REPORT Comments: Specimen submitted to Anatomical Pathology Department fortesting. (Normal) [id number] CYTOSPIN ON FLUID See Note (Normal) Comments: [facility] [id number] [place], [place], [id number] Comments: Patient: GEORGE VANN : 1940 (75/M) Acct Num: [id number] Phys: Glenny GARCIA,Urban Unit Num: [id number] Loc: LAB[facility] Specimen: [id number] Received: 08/15/16 - 112 Spec Type: CYSPIN FL TISSUES TISSUES: COMMENT Correlation with clinical findings and appropriate follow up are necessary. 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 CYTOLOGY GROSS Received is 35 ml of clear gol d fluid labeled with the patient's name and and designated per the requisition as urine. Submitted for cytology preparation. / 08/15/16 TC:5 CPT: 20317 CYTOLOGY STUDY Slides are reviewe d. DIAGNOSIS CYTOLOGY Urine for cytology (cytospin): A few clusters of atypical urothelial cells noted. See comment. SJ:lorenzo 08/18/16 HEADER OPERATION: Not noted PRE-OP DIAGNO SIS: Hematuria R31.9 TISSUE SUBMITTED: Urine for cytology Signed Wes Morrow 08/18/16 <signature on file> :28 BNP,B-Type NATRIURETIC PEPTIDE Comments: Order Date: 08/14/16Order Info: [id number] - *[facility] [id number] [place], [place], [id number] B-TYPE EDGAR PEP 45.3 pg/mL (Normal) Range: 0-100 [id number] Lipid Profile Comments: Order Date: 08/08/16Order Info: [id number] - *Hepatic Function PanelOrder Date: 08/08/16Order Info: [id number] - *Lipid Profile CC PCPComments: 12 hours fasting, may have water.[facility] [place], [phone] VLDL 39 mg/dL (Normal) Range: 5-40 LDL 64 mg/dL (Normal) Range: 0-130 HDL 39 mg/dL (Abnormal) Comments: The drugs N-Acetylcysteine and Metamizole may falsely deressthis assay. Reference Range HDL <40 mg/dL Low HDL Cholesterol HDL >or= 60 mg/dL High HDL Cholesterol TRIG 196 mg/dL (Normal) Comments: The drugs N-Acetylcysteine and Metamizole may falsely deressthis assay.Serum Triglycerides Reference Interval Normal <150 mg/dL Borderline high 150 - 199 mg/dL High 200 - 499 mg/dL Very High > or = 500 mg/dL CHOL 142 mg/dL (Normal) Comments: <200 mg/dL Desirable 200-240 mg/dL Borderline >240 mg/dL High Risk 34-Mrk-76617:20 Liver Profile Comments: Order Date: 08/08/16Order Info: [id number] - *Hepatic Function PanelOrder Date: 08/08/16Order Info: [id number] - *Lipid Profile CC PCPComments: 12 hours fasting, may have water.[facility] [place], [id number] D BILI 0.13 mg/dL (Normal) Range: 0.00-0.30 T BILI 0.70 mg/dL (Normal) Range: 0.20-1.00 ALT 18 U/L (Normal) Range: 12-78 ALK P 67 U/L (Normal) Range: 45-117 AST 12 U/L (Abnormal) Range: 15-37 GLOB 3.3 g/dL (Normal) Range: 2.3-3.5 ALB 3.7 g/dL (Normal) Range: 3.4-5.0 T PROT 7.0 g/dL (Normal) Range: 6.4-8.2 22-Ivx-879473:45 Basic Metabolic Profile (BMP) Comments: [facility] [address] [place], [id number] GAP 0 (Abnormal) Range: 5-15 CO2 30.0 mmol/L (Normal) Range: 21.0-32.0 CL 103 mmol/L (Normal) Range: 98-107 K 3.9 mmol/L (Normal) Range: 3.5-5.1 NA 133 mmol/L (Abnormal) Range: 136-145 CA 9.6 mg/dL (Normal) Range: 8.5-10.1 BUN/CRE 25.2 {RATIO} (Abnormal) Range: 10-20 Estimated CRCL 44.32 ml/min (Normal) EST GFR - AA 58 mL/min (Abnormal) Comments: GFR Calc EST GFR 48 mL/min (Abnormal) Comments: Non- GFR Calc CREAT,SERUM 1.51 mg/dL (Abnormal) Range: 0.70-1.30 Comments: The validity of the calculated GFR AND GFRAA in patients over70 years has not been determined. Clinical correlation isessential. BUN 38 mg/dL (Abnormal) Range: 7-18 GLU 115 mg/dL (Abnormal) Range: 70-110 Comments: Fasting Glucose result from 110 to <126 mg/dLsuggests IMPAIRED HOMEOSTASIS per A.D.A. criteria. 83-Vfb-[id number]:45 CBC W/Diff, Automated Comments: [facility] [address] [place], [place], [id number] Absolute Lymph 1.38 {X10_3/ul} (Normal) Range: 0.83-4.51 Absolute Neut 8.6 {X10_3/uL} (Abnormal) Range: 2.0-7.7 IM GRAN % 0.300 % (Normal) Range: 0.0-0.9 Comments: IG% - Immature Granulocytes (promyelocytes, myelocytes andmetamyelocytes) > 1% indicates that a LEFT SHIFT is Present. BASO% 0.1 % (Normal) Range: 0-1 EO% 1.0 % (Normal) Range: 0-5 MONO% 8.6 % (Normal) Range: 0-10 LY% 12.4 % (Abnormal) Range: 19-41 NEUT% 77.6 % (Abnormal) Range: 47-70 MPV 9.9 fL (Normal) Range: 6.2-12.0 PLT 143 K/mm3 (Abnormal) Range: 150-450 RDW SD 40.9 fL (Normal) Range: 35.1-43.9 RDW CV 12.5 % (Normal) Range: 11.6-14.6 MCHC 34.8 {g/gl} (Normal) Range: 32-36 MCH 31.9 pg (Normal) Range: 27.0-32.0 MCV 91.7 fL (Normal) Range: 80-94 HCT 37.4 % (Abnormal) Range: 40-54 HGB 13.0 g/dL (Normal) Range: 13.0-16.5 RBC 4.08 {M/mm3} (Abnormal) Range: 4.6-6.2 WBC 11.1 K/mm3 (Abnormal) Range: 4.4-11.0 70-Sfi-938544:45 Troponin-I Comments: 'TROP' Serial specimen #1, #2, #3, or #4: [address] [place] [address] [address] [place], [place], [address] TROPONIN-I < 0.02 ng/mL Comments: TROPONIN-I EXPECTED VALUES <0.05 NEGATIVE 0.06 - 0.59 AT RISK OF WI > OR = 0.60 SUGGEST WI (Normal) BLADDER BX/FULGURATION See Note (Normal) Comments: [facility] [address] [place], [place], [address] :08 Comments: Patient: GEORGE VANN : 1940 (75/M) Acct Num: [id number] Phys: Glenny GARCIA,Urban Unit Num: [id number] Loc: [facility] [place] Specimen: [id number] Received: 12/07/151513 Spec Ty pe: BLADDER BX TISSUES TISSUES: COMMENT B. Some of the fragments show denuded epithelium. GROSS DESCRIPTION A - Received is one container labeled with the patient's name and ray ignated bladder tumor. The specimen consists of two irregular fragments of light torrez soft tissue that in aggregate measure 0.3 x 0.1 x 0.1 cm. The specimen is totally submitted in one cassette. B - Received is one container labeled with the patient's name and designated bladder tumor trigone. The specimen consists of multiple irregular fragments of light torrez soft tissue that in aggregate measu re 2 x 0.3 x 0.1 cm. The specimen is totally submitted in one cassette. / SJ:lorenzo 12/10/15 TC:0 CPT: 00520 x2 HEADER OPERATION: Cystoscopy, left ureteroscopy PRE-OP DIAGNOSIS: Kidney stone, hematuria, renal cysts TISSUE SUBMITTED: A - Bladder tumor, B - Bladder tumor-trigone MICROSCOPIC DESCRIPTION Slides are reviewed. MICROSCOPIC DIAGNOSIS A. Bladder tumor, TUR: Pap illary urothelial carcinoma. See cancer summary below. 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 B. Bladder tumor trigone, TUR: Fragments of urothelial mucosa with mild epithelial atypia. Negative for malignancy in the submitted specimen. See comment. SJ:lorenzo 12/11/15 Signed Wes Morrow 12/11/15 <signature on file> 05-Oqd-43164:37 Lipid Profile Comments: Order Date: 10/16/15OV Order #: [id number] Csqycwdggl0281 [facility] [place], [address] VLDL 31 mg/dL (Normal) Range: 5-40 LDL 58 mg/dL (Normal) Range: 0-130 HDL 39 mg/dL (Abnormal) Comments: The drugs N-Acetylcysteine and Metamizole may falsely deressthis assay. Reference Range HDL <40 mg/dL Low HDL Cholesterol HDL >or= 60 mg/dL High HDL Cholesterol TRIG 157 mg/dL (Normal) Comments: The drugs N-Acetylcysteine and Metamizole may falsely deressthis assay.Serum Triglycerides Reference Interval Normal <150 mg/dL Borderline high 150 - 199 mg/dL High 200 - 499 mg/dL Very High > or = 500 mg/dL CHOL 128 mg/dL (Normal) Comments: <200 mg/dL Desirable 200-240 mg/dL Borderline >240 mg/dL High Risk :37 Liver Profile Comments: Order Date: 10/16/15OV Order #: [id number] [address] [place], [address] D BILI 0.15 mg/dL (Normal) Range: 0.00-0.30 T BILI 0.60 mg/dL (Normal) Range: 0.20-1.00 ALT 17 U/L (Normal) Range: 12-78 ALK P 60 U/L (Normal) Range: 50-136 AST 13 U/L (Abnormal) Range: 15-37 GLOB 3.4 g/dL (Normal) Range: 2.3-3.5 ALB 3.6 g/dL (Normal) Range: 3.4-5.0 T PROT 7.0 g/dL (Normal) Range: 6.4-8.2 :18 SED RATE ERYTHROCYTE Comments: PATIENT WAS FASTINGPERFORMED BY: [facility] [id number] BY: [employer] [id number] ([id number]) Sedimentation Rate-Westergren 4 mm/h (Normal) Range: 0-30 :18 RHEUMATOID FACTOR-QUANT Comments: PATIENT WAS FASTINGPERFORMED BY: [employer]70 [facility] [id number] BY: [employer] [id number] ([id number]) RA Latex Turbid. 4.8 {IU/mL} (Normal) Range: 0.0-13.9 :18 C-REACTIVE PROTEIN (30119) Comments: PATIENT WAS FASTINGPERFORMED BY: [employer]70 [facility] [id number] BY: [employer] [id number] C-Reactive Protein, Quant 12.2 mg/L (Abnormal) Range: 0.0-4.9 :18 PSA (Medicare - G0103) Comments: PATIENT WAS FASTINGPERFORMED BY: [employer]70 [facility] [id number] BY: [employer] [id number] ([id number]) Prostate Specific Ag, 2.6 ng/mL (Normal) Range: 0.0-4.0 Serum Comments: Mitro ECLIA methodology. .According to the [place] [employer] Association, Serum PSA shoulddecrease and remain at undetectable levels after radicalprostatectomy. The AUA defines biochemical recurrence as an initialPSA value 0.2 ng/mL or greater followed by a subsequent confirmatoryPSA value 0.2 ng/mL or greater.Values obtained with d ifferent assay methods or kits cannot be usedinterchangeably. Results cannot be interpreted as absolute evidenceof the presence or absence of malignant disease. :18 VITAMIN B12 AND FOLATES Comments: PATIENT WAS FASTINGPERFORMED BY: [employer]6370 [facility] [id number] BY: [employer] [id number] (77711) Folate (Folic Acid), Serum >20.0 ng/mL (Normal) Comments: A serum folate concentration of less than 3.1 ng/mL isconsidered to represent clinical deficiency. Vitamin B12 543 pg/mL (Normal) Range: 211-946 :18 VITAMIN D, 1, 25-DIHYDROXY Comments: PATIENT WAS FASTINGPERFORMED BY: [employer]6370 [facility] [id number] BY: [employer] [id number] (11986) Calcitriol(1,25 di-OH Vit D) 35.3 pg/mL (Normal) Range: 19.9-79.3 :18 TSH (THYROID STIMULATING Comments: PATIENT WAS FASTINGPERFORMED BY: [place] [id number] [facility] [id number] BY: [address] [id number] HORMONE) (34934) TSH 1.680 {uIU/mL} (Normal) Range: 0.450-4.500 :18 LIPID PANEL (23039) Comments: PATIENT WAS FASTINGPERFORMED BY: [employer] [id number] BY: [address] [id number] LDL/HDL Ratio 1.8 {ratio_units} (Normal) Range: 0.0-3.6 Comments: LDL/HDL Ratio Men Women 1/2 Avg.Risk 1.0 1.5 Av g.Risk 3.6 3.2 2X Avg.Risk 6.2 5.0 3X Avg.Risk 8.0 6.1 LDL Cholesterol Calc 62 mg/dL (Normal) Range: 0-99 VLDL Cholesterol Sree 25 mg/dL (Normal) Range: 5-40 HDL Cholesterol 34 mg/dL (Abnormal) Comments: According to ATP-III Guidelines, HDL-C >59 mg/dL is considered anegative risk factor for CHD. Triglycerides 124 mg/dL (Normal) Range: 0-149 Cholesterol, Total 121 mg/dL (Normal) Range: 100-199 :18 METABOLIC PANEL, Comments: PATIENT WAS FASTINGPERFORMED BY: [employer] CompanyDaniel [place] 7152670 [facility] [id number] BY: [address] [id number] COMPREHENSIVE (13403) ALT (SGPT) 10 [iU]/L (Normal) Range: 0-44 AST (SGOT) 16 [iU]/L (Normal) Range: 0-40 Alkaline Phosphatase, S 67 [iU]/L (Normal) Range: 39-117 Bilirubin, Total 0.5 mg/dL (Normal) Range: 0.0-1.2 A/G Ratio 1.7 (Normal) Range: 1.1-2.5 Globulin, Total 2.4 g/dL (Normal) Range: 1.5-4.5 Albumin, Serum 4.0 g/dL (Normal) Range: 3.5-4.8 Protein, Total, Serum 6.4 g/dL (Normal) Range: 6.0-8.5 Calcium, Serum 9.9 mg/dL (Normal) Range: 8.6-10.2 Carbon Dioxide, Total 23 mmol/L (Normal) Range: 18-29 Chloride, Serum 104 mmol/L (Normal) Range: 97-108 Potassium, Serum 4.5 mmol/L (Normal) Range: 3.5-5.2 Sodium, Serum 144 mmol/L (Normal) Range: 134-144 BUN/Creatinine Ratio 25 (Abnormal) Range: 10-22 eGFR If Africn Am 86 mL/min/1.73 (Normal) eGFR If NonAfricn Am 74 mL/min/1.73 (Normal) Creatinine, Serum 1.00 mg/dL (Normal) Range: 0.76-1.27 BUN 25 mg/dL (Normal) Range: 8-27 Glucose, Serum 96 mg/dL (Normal) Range: 65-99 26-Jul-20157:18 CBC, PLATELETS & AUT DIFF Comments: PATIENT WAS FASTINGPERFORMED BY: CB [facility] Zfoppy8020 [facility] [id number] BY: BN [facility] [address] [id number] Information: [id number] (35395) Immature Grans (Abs) 0.0 {x10E3/uL} (Normal) Range: 0.0-0.1 Immature Granulocytes 0 % (Normal) Baso (Absolute) 0.0 {x10E3/uL} (Normal) Range: 0.0-0.2 Eos (Absolute) 0.3 {x10E3/uL} (Normal) Range: 0.0-0.4 Monocytes(Absolute) 0.6 {x10E3/uL} (Normal) Range: 0.1-0.9 Lymphs (Absolute) 1.5 {x10E3/uL} (Normal) Range: 0.7-3.1 Neutrophils (Absolute) 2.6 {x10E3/uL} (Normal) Range: 1.4-7.0 Basos 1 % (Normal) Eos 6 % (Normal) Monocytes 11 % (Normal) Lymphs 30 % (Normal) Neutrophils 52 % (Normal) Platelets 183 {x10E3/uL} (Normal) Range: 150-379 RDW 13.6 % (Normal) Range: 12.3-15.4 MCHC 32.9 g/dL (Normal) Range: 31.5-35.7 MCH 30.2 pg (Normal) Range: 26.6-33.0 MCV 92 fL (Normal) Range: 79-97 Hematocrit 40.1 % (Normal) Range: 37.5-51.0 Hemoglobin 13.2 g/dL (Normal) Range: 12.6-17.7 RBC 4.37 {x10E6/uL} (Normal) Range: 4.14-5.80 WBC 5.0 {x10E3/uL} (Normal) Range: 3.4-10.8 88-Lpf-694004:10 HgA1C , Office (54386) HgA1C , Office 5.6 % (Normal) Range: 4.6 - 7.1 :55 Lipid Profile Comments: [facility] [address]qlb[address] [facility] [place], [place], [id number] VLDL 33 mg/dL (Normal) Range: 5-40 LDL 55 mg/dL (Normal) Range: 0-130 HDL 41 mg/dL (Normal) Comments: Reference Range HDL <40 mg/dL Low HDL Cholesterol HDL >or= 60 mg/dL High HDL Cholesterol TRIG 166 mg/dL (Normal) Comments: Serum Triglycerides Reference Interval Normal <150 mg/dL Borderline high 150 - 199 mg/dL High 200 - 499 mg/dL Very High > or = 500 mg/dL CHOL 129 mg/dL (Normal) Comments: <200 mg/dL Desirable 200-240 mg/dL Borderline >240 mg/dL High Risk :55 Liver Profile Comments: [facility] N[address]cpnut[address]009 [facility]. [place], [place], [address] D BILI 0.18 mg/dL (Normal) Range: 0.00-0.30 T BILI 0.50 mg/dL (Normal) Range: 0.20-1.00 ALT 15 U/L (Normal) Range: 12-78 ALK P 85 U/L (Normal) Range: 50-136 AST 13 U/L (Abnormal) Range: 15-37 GLOB 3.5 g/dL (Normal) Range: 2.3-3.5 ALB 3.5 g/dL (Normal) Range: 3.4-5.0 T PROT 7.0 g/dL (Normal) Range: 6.4-8.2 :55 HgA1C , Office (56626) HgA1C , Office 5.5 % (Normal) Range: 4.6 - 7.1 6-Hwi-542003:23 URINE MONTSE CULTURE-IDENTIFICATN Comments: PATIENT NOT FASTINGPERFORMED BY: LabMYagonism.comAcuteCare Health SystemScafrk4715 [facility] [id number] Information: [id number] (94945) Result 1 NG36 (Normal) Comments: No growth in 36 - 48 hours. Urine Culture,Comprehensive Final report (Normal) :31 Urinalysis, Office (98561) UA - LEUKOCYTE ESTERASE Trace (Normal) UA - NITRITE Negative (Normal) URINE UROBILINGN DEEPALI TIMED Normal mg/dL (Normal) UA - PROTEIN 100 mg/dL (Normal) UA - PH 5 (Abnormal) UA - BLOOD Negative (Normal) UA - SPECIFIC GRAVITY 1.030 (Abnormal) UA - KETONES Moderate mg/dL (Normal) UA - BILIRUBIN Small (Normal) UA - GLUCOSE Negative (Normal) :09 URINE MONTSE CULTURE-IDENTIFICATN Comments: PATIENT NOT FASTINGPERFORMED BY: [facility] Pdkytm0789 [facility] [id number] Information: [id number] (47921) Result 1 MUG (Normal) Comments: Mixed urogenital flora1,000 Colonies/mL Urine Culture,Comprehensive Final report (Normal) :03 Urinalysis, Office (99661) UA - LEUKOCYTE ESTERASE Trace (Normal) UA - NITRITE Negative (Normal) URINE UROBILINGN DEEPALI TIMED Normal mg/dL (Normal) UA - PROTEIN Negative mg/dL (Normal) UA - PH 5 (Abnormal) UA - BLOOD Hemolyzed Trace (Normal) UA - SPECIFIC GRAVITY 1.030 (Abnormal) UA - KETONES Negative mg/dL (Normal) UA - BILIRUBIN Negative (Normal) UA - GLUCOSE Negative (Normal) :25 Urinalysis, Office (49362) UA - LEUKOCYTE ESTERASE Small (Normal) UA - NITRITE Negative (Normal) URINE UROBILINGN DEEPALI TIMED Normal mg/dL (Normal) UA - PROTEIN 100 mg/dL (Normal) UA - PH 6 (Abnormal) UA - BLOOD Hemolyzed Moderate (Normal) UA - SPECIFIC GRAVITY 1.030 (Abnormal) UA - KETONES Negative mg/dL (Normal) UA - BILIRUBIN Negative (Normal) UA - GLUCOSE Negative (Normal) :38 LIPID PANEL (67889) Comments: copy to Dr. peres; PATIENT WAS FASTINGPERFORMED BY: [employer] [place] [id number] LDL/HDL Ratio 1.6 {ratio_units} (Normal) Range: 0.0-3.6 Comments: LDL/HDL Ratio Men Women 1/2 Avg.Risk 1.0 1.5 Av g.Risk 3.6 3.2 2X Avg.Risk 6.2 5.0 3X Avg.Risk 8.0 6.1 LDL Cholesterol Calc 64 mg/dL (Normal) Range: 0-99 VLDL Cholesterol Sree 26 mg/dL (Normal) Range: 5-40 HDL Cholesterol 40 mg/dL (Normal) Comments: According to ATP-III Guidelines, HDL-C >59 mg/dL is considered anegative risk factor for CHD. Triglycerides 129 mg/dL (Normal) Range: 0-149 Cholesterol, Total 130 mg/dL (Normal) Range: 100-199 :38 CALCIFIDIOL (34041) VIT D 25 Comments: PATIENT WAS FASTINGPERFORMED BY: Anz[employer]6370 [facility] [id number] Vitamin D, 25-Hydroxy 35.1 ng/mL (Normal) Range: 30.0-100.0 Comments: Vitamin D deficiency has been defined by the Morning Sun ofMedicine and an Endocrine Society practice guideline as alevel of serum 25-OH vitamin D less than 20 ng/mL (1,2).The Endocrine Society went on to further define vitamin Dinsufficiency as a level between 21 and 29 ng/mL (2).1. IOM (Morning Sun of Medicine). 2010. Dietary reference intakes for calcium and D. [place]: The National Academies Press.2. Tammy MF, Cameron STEVENSON, Arnav DANIELLE, et al. Evaluation, treatment, and prevention of vitamin D deficiency: an Endocrine Society clinical practice guideline. JCEM. 2010; 96(7):5741-30. :38 TSH (09464) Comments: PATIENT WAS FASTINGPERFORMED BY: [employer] Eaghky3563 [facility] [id number] TSH 2.630 {uIU/mL} (Normal) Range: 0.450-4.500 :38 METABOLIC PANEL, COMPREHENSIVE Comments: PATIENT WAS FASTINGPERFORMED BY: [facility]agonism[facility]com Biewxb1194 [facility] [id number] (39911) ALT (SGPT) 11 [iU]/L (Normal) Range: 0-44 AST (SGOT) 13 [iU]/L (Normal) Range: 0-40 Alkaline Phosphatase, S 64 [iU]/L (Normal) Range: 39-117 Bilirubin, Total 0.6 mg/dL (Normal) Range: 0.0-1.2 A/G Ratio 1.6 (Normal) Range: 1.1-2.5 Globulin, Total 2.5 g/dL (Normal) Range: 1.5-4.5 Albumin, Serum 4.1 g/dL (Normal) Range: 3.5-4.8 Protein, Total, Serum 6.6 g/dL (Normal) Range: 6.0-8.5 Calcium, Serum 10.1 mg/dL (Normal) Range: 8.6-10.2 Carbon Dioxide, Total 24 mmol/L (Normal) Range: 18-29 Chloride, Serum 105 mmol/L (Normal) Range: 97-108 Potassium, Serum 4.5 mmol/L (Normal) Range: 3.5-5.2 Sodium, Serum 143 mmol/L (Normal) Range: 134-144 BUN/Creatinine Ratio 22 (Normal) Range: 10-22 eGFR If Africn Am 95 mL/min/1.73 (Normal) eGFR If NonAfricn Am 82 mL/min/1.73 (Normal) Creatinine, Serum 0.92 mg/dL (Normal) Range: 0.76-1.27 BUN 20 mg/dL (Normal) Range: 8-27 Glucose, Serum 102 mg/dL (Abnormal) Range: 65-99 :38 CBC with auto diff Comments: PATIENT WAS FASTINGPERFORMED BY: [facility] Pyskkn9079 [facility] [id number] Information: [id number] (79929) Immature Grans (Abs) 0.0 {x10E3/uL} (Normal) Range: 0.0-0.1 Immature Granulocytes 0 % (Normal) Baso (Absolute) 0.0 {x10E3/uL} (Normal) Range: 0.0-0.2 Eos (Absolute) 0.3 {x10E3/uL} (Normal) Range: 0.0-0.4 Monocytes(Absolute) 0.4 {x10E3/uL} (Normal) Range: 0.1-0.9 Lymphs (Absolute) 1.6 {x10E3/uL} (Normal) Range: 0.7-3.1 Neutrophils (Absolute) 3.6 {x10E3/uL} (Normal) Range: 1.4-7.0 Basos 1 % (Normal) Eos 5 % (Normal) Monocytes 7 % (Normal) Lymphs 26 % (Normal) Neutrophils 61 % (Normal) Platelets 151 {x10E3/uL} (Normal) Range: 150-379 RDW 13.6 % (Normal) Range: 12.3-15.4 MCHC 33.9 g/dL (Normal) Range: 31.5-35.7 MCH 30.8 pg (Normal) Range: 26.6-33.0 MCV 91 fL (Normal) Range: 79-97 Hematocrit 41.9 % (Normal) Range: 37.5-51.0 Hemoglobin 14.2 g/dL (Normal) Range: 12.6-17.7 RBC 4.61 {x10E6/uL} (Normal) Range: 4.14-5.80 WBC 5.9 {x10E3/uL} (Normal) Range: 3.4-10.8 :11 Lipid Profile Comments: Test performed at:[facility] [address] [place], [place] [address] VLDL 23 mg/dL (Normal) Range: 5-40 LDL 63 mg/dL (Normal) Range: 0-130 HDL 36 mg/dL (Abnormal) Comments: Reference Range HDL <40 mg/dL Low HDL Cholesterol HDL >or= 60 mg/dL High HDL Cholesterol TRIG 114 mg/dL (Normal) Range: 0-199 Comments: Serum Triglycerides Reference Interval Normal <150 mg/dL Borderline high 150 - 199 mg/dL High 200 - 499 mg/dL Very High > or = 500 mg/dL CHOL 122 mg/dL (Normal) Comments: <200 mg/dL Desirable 200-240 mg/dL Borderline >240 mg/dL High Risk :11 Liver Profile Comments: Test performed at:[facility] Bcgubgzmbo8800 [facility] AlejandroYolande [place], [place] [id number] D BILI 0.19 mg/dL (Normal) Range: 0.00-0.30 T BILI 0.90 mg/dL (Normal) Range: 0.20-1.00 ALT 16 U/L (Normal) Range: 12-78 ALK P 74 U/L (Normal) Range: 50-136 AST 14 U/L (Abnormal) Range: 15-37 GLOB 3.5 g/dL (Normal) Range: 2.3-3.5 ALB 3.6 g/dL (Normal) Range: 3.4-5.0 T PROT 7.1 g/dL (Normal) Range: 6.4-8.2 :19 Basic Metabolic Profile (BMP) Comments: Test performed at:[facility] Oetbtnlvzz8[address] [facility] [place], [place] [id number] GAP 5 (Normal) Range: 5-15 CO2 27.0 mmol/L (Normal) Range: 21.0-32.0 CL 110 mmol/L (Abnormal) Range: 98-107 K 4.1 mmol/L (Normal) Range: 3.5-5.1 NA 142 mmol/L (Normal) Range: 136-145 CA 8.8 mg/dL (Normal) Range: 8.5-10.1 BUN/CRE 27.5 {RATIO} (Abnormal) Range: 10-20 CREAT,SERUM 0.8 mg/dL (Normal) Range: 0.8-1.3 BUN 22 mg/dL (Abnormal) Range: 7-18 GLU 93 mg/dL (Normal) Range: 70-110 :19 CBC-Complete Blood Cnt No Diff Comments: Test performed at:[facility] [address] [place] [address] MPV 10.2 fL (Normal) Range: 6.2-12.0 PLT 145 K/mm3 (Abnormal) Range: 150-450 RDW SD 41.0 fL (Normal) Range: 35.1-43.9 RDW CV 12.6 % (Normal) Range: 11.6-14.6 MCHC 34.0 {g/gl} (Normal) Range: 32-36 MCH 31.1 pg (Normal) Range: 27.0-32.0 MCV 91.6 fL (Normal) Range: 80-94 HCT 41.2 % (Normal) Range: 40-54 HGB 14.0 g/dL (Normal) Range: 13.0-16.5 RBC 4.50 {M/mm3} (Abnormal) Range: 4.6-6.2 WBC 5.1 K/mm3 (Normal) Range: 4.4-11.0 :19 PSA,Total - Annual Screen Comments: Test performed at:[facility] [address] [place], [place] [id number] PSA,TOT SCREEN 2.34 ng/mL (Normal) Range: 0.00-4.00 Comments: This test was performed using the TPSA assay method for the[facility] chemistry system. Values obtained with differentassay methods cannot be used interchangably.When changing PSA assays in the course of monitoring apatient, additional sequential testing should be carriedout to confirm baseline values. 4-Zka-035528:32 CBC With Differential/Platelet Comments: PATIENT WAS FASTINGPERFORMED BY: CB [facility] Aqmhwj4424 [facility] [id number] BY: BN [facility] Gslvhsfumy6670 [facility] [id number] Immature Grans (Abs) 0.0 {x10E3/uL} Range: 0.0-0.1 (Normal) Immature Granulocytes 0 % (Normal) Baso (Absolute) 0.0 {x10E3/uL} Range: 0.0-0.2 (Normal) Eos (Absolute) 0.3 {x10E3/uL} Range: 0.0-0.4 (Normal) Monocytes(Absolute) 0.4 {x10E3/uL} Range: 0.1-0.9 (Normal) Lymphs (Absolute) 1.1 {x10E3/uL} Range: 0.7-3.1 (Normal) Neutrophils (Absolute) 2.5 {x10E3/uL} Range: 1.4-7.0 (Normal) Basos 1 % (Normal) Eos 7 % (Normal) Monocytes 10 % (Normal) Lymphs 26 % (Normal) Neutrophils 56 % (Normal) Platelets 151 {x10E3/uL} Range: 150-379 (Normal) RDW 13.7 % (Normal) Range: 12.3-15.4 MCHC 34.0 g/dL (Normal) Range: 31.5-35.7 MCH 30.8 pg (Normal) Range: 26.6-33.0 MCV 91 fL (Normal) Range: 79-97 Hematocrit 42.1 % (Normal) Range: 37.5-51.0 Hemoglobin 14.3 g/dL (Normal) Range: 12.6-17.7 RBC 4.65 {x10E6/uL} Range: 4.14-5.80 (Normal) WBC 4.5 {x10E3/uL} Range: 3.4-10.8 (Normal) Comment: SPRCS (Normal) Comments: PATIENT WAS FASTINGPERFORMED BY: [employer] [place] [employer] [facility] [id number] BY: [address] [id number] 2:32 Comments: Non reactive HCV antibody screen is consistent with no HCV infection,unless recent infection is suspected or other evidence exists toindicate HCV infection. Fibrinogen Antigen 509 mg/dL (Abnormal) Comments: PATIENT WAS FASTINGPERFORMED BY: [employer] [address] [place] [address] [id number] BY: [address] [id number] 2:32 Range: 180-350 H. pylori, IgG Abs <0.9 U/mL (Normal) Comments: PATIENT WAS FASTINGPERFORMED BY: [employer] [id number] BY: [address] [id number] 2:32 Range: 0.0-0.8 Comments: Negative <0.9 Indeterminate 0.9 - 1.0 Positive >1.0 HBsAg Screen Negative (Normal) Comments: PATIENT WAS FASTINGPERFORMED BY: [employer] [id number] BY: [address] [address] [id number] 2:32 2-Rwa-411428:32 HBV Core Ab, IgG/IgM Comments: PATIENT WAS FASTINGPERFORMED BY: [employer] [id number] BY: [address] [id number] Diff Hep B Core Ab, Tot Negative (Normal) Hep B Core Ab, IgM Negative (Normal) :32 HCV Ab w/Rflx to Comments: PATIENT WAS FASTINGPERFORMED BY: [employer] [id number] BY: [address] [id number] Verification HCV Ab 0.1 {s/co_ratio} (Normal) Range: 0.0-0.9 9-Mob-692734:32 Hep B Surface Ab Comments: PATIENT WAS FASTINGPERFORMED BY: [address] [id number] BY: [address] [id number] Hep B Surface Ab, Qual Non Reactive Comments: Non Reactive: Inconsistent with immunity, less than 10 mIU/mL Reactive: Consistent with immunity, greater than 9.9 mIU/mL (Normal) Methylmalonic Acid, 187 nmol/L Comments: PATIENT WAS FASTINGPERFORMED BY: [address] [id number] BY: [address] [id number] :32 Serum (Normal) Range: 0-378 Comments: Please note reference interval change :32 Prothrombin Time (PT) Comments: PATIENT WAS FASTINGPERFORMED BY: [address] [id number] BY: [address] [id number] Prothrombin Time 10.2 {sec} (Normal) Range: 9.1-12.0 INR 1.0 (Normal) Range: 0.8-1.2 Comments: Reference interval is for non-anticoagulated patients. . Suggested INR therapeutic range for Vitamin K anta gonist therapy: Standard Dose (moderate intensity therapeutic range): 2.0 - 3.0 Higher intensity therapeutic range 2.5 - 3.5 :32 PTT, Activated Comments: PATIENT WAS FASTINGPERFORMED BY: [employer] [id number] BY: [address] [id number] aPTT 29 {sec} (Normal) Range: 24-33 Comments: This test has not been validated for monitoring unfractionated heparintherapy. aPTT-based therapeutic ranges for unfractionated heparintherapy have not been established. For general guidelines onHeparin monitoring, refer to the [facility] Directory of Services. Sedimentation 8 mm/h (Normal) Comments: PATIENT WAS FASTINGPERFORMED BY: [address] [id number] BY: [address] [id number] :32 Rate-Westergren Range: 0-30 Vitamin B12 457 pg/mL (Normal) Comments: PATIENT WAS FASTINGPERFORMED BY: [address] StreetDublin [place] [id number] BY: [facility] Tajtcetptg5506 [facility] [id number] :32 Range: 211-946 :12 Basic Metabolic Profile (BMP) Comments: Test performed at:[facility] [address] [place] [address] GAP 4 (Abnormal) Range: 5-15 CO2 30.0 mmol/L (Normal) Range: 21.0-32.0 CL 109 mmol/L (Abnormal) Range: 98-107 K 4.0 mmol/L (Normal) Range: 3.5-5.1 NA 143 mmol/L (Normal) Range: 136-145 CA 9.7 mg/dL (Normal) Range: 8.5-10.1 BUN/CRE 26.7 {RATIO} (Abnormal) Range: 10-20 CREAT,SERUM 0.9 mg/dL (Normal) Range: 0.8-1.3 BUN 24 mg/dL (Abnormal) Range: 7-18 GLU 99 mg/dL (Normal) Range: 70-110 :12 CBC W/Diff, Automated Comments: Test performed at:[facility] [address] [place] [address] Absolute Lymph 1.66 {X10_3/ul} (Normal) Range: 0.83-4.51 Absolute Neut 3.0 {X10_3/uL} (Normal) Range: 2.0-7.7 IM GRAN % 0.200 % (Normal) Range: 0.0-0.9 Comments: IG% - Immature Granulocytes (promyelocytes, myelocytes andmetamyelocytes) > 1% indicates that a LEFT SHIFT is Present. BASO% 0.4 % (Normal) Range: 0-1 EO% 4.5 % (Normal) Range: 0-5 MONO% 10.3 % (Abnormal) Range: 0-10 LY% 30.1 % (Normal) Range: 19-41 NEUT% 54.5 % (Normal) Range: 47-70 MPV 10.5 fL (Normal) Range: 6.2-12.0 PLT 122 K/mm3 (Abnormal) Range: 150-450 RDW SD 42.1 fL (Normal) Range: 35.1-43.9 RDW CV 12.6 % (Normal) Range: 11.6-14.6 MCHC 34.2 {g/gl} (Normal) Range: 32-36 MCH 31.5 pg (Normal) Range: 27.0-32.0 MCV 92.0 fL (Normal) Range: 80-94 HCT 42.7 % (Normal) Range: 40-54 HGB 14.6 g/dL (Normal) Range: 13.0-16.5 RBC 4.64 {M/mm3} (Normal) Range: 4.6-6.2 WBC 5.5 K/mm3 (Normal) Range: 4.4-11.0 :12 Lipid Profile Comments: Test performed at:[facility] [address] [place] [address] [id number] VLDL 25 mg/dL (Normal) Range: 5-40 LDL 69 mg/dL (Normal) Range: 0-130 HDL 39 mg/dL (Abnormal) Comments: Reference Range HDL <40 mg/dL Low HDL Cholesterol HDL >or= 60 mg/dL High HDL Cholesterol TRIG 125 mg/dL (Normal) Range: 0-199 Comments: Serum Triglycerides Reference Interval Normal <150 mg/dL Borderline high 150 - 199 mg/dL High 200 - 499 mg/dL Very High > or = 500 mg/dL CHOL 133 mg/dL (Normal) Comments: <200 mg/dL Desirable 200-240 mg/dL Borderline >240 mg/dL High Risk :12 Liver Profile Comments: Test performed at:[facility] [address] [place], [place] [address] D BILI 0.19 mg/dL (Normal) Range: 0.00-0.30 T BILI 0.60 mg/dL (Normal) Range: 0.00-4.00 ALT 19 U/L (Normal) Range: 12-78 ALK P 67 U/L (Normal) Range: 50-136 AST 14 U/L (Abnormal) Range: 15-37 GLOB 3.1 g/dL (Normal) Range: 2.7-4.2 ALB 3.8 g/dL (Normal) Range: 3.4-5.0 T PROT 6.9 g/dL (Normal) Range: 6.4-8.2 :12 Urinalysis, Complete Comments: How was Urine Obtained? CLEAN CATCHTest performed at:[facility] [address] [place] [address] MUCUS, URINE 1+ {/hpf} (Normal) BACTERIA RARE {/hpf} (Normal) SQUAM EPI 0-5 SEEN {/hpf} Range: 0-5 (Normal) RBC-UA 0-5 SEEN {/hpf} Range: 0-5 (Normal) WBC 0-5 SEEN {/hpf} Range: 0-5 (Normal) LEUK ESTERASE 25 /ul (Abnormal) OCCULT BLOOD-UR 25 /ul (Abnormal) NITRITE UR Negative (Normal) UROBILI Normal mg/dL (Normal) PROT DIPSTX Negative mg/dL (Normal) pH UR 5.0 (Normal) Range: 5.0 - 8.0 SP.GR. DIPSTX 1.025 (Normal) Range: 1.002-1.030 KETONE UR Negative mg/dL (Normal) BILIRUBIN URINE Negative mg/dL (Normal) GLUCOSE, UR Normal mg/dL (Normal) CLARITY Clear (Normal) COLOR Yellow (Normal) :35 PSA 3.29 ng/mL (Normal) Range: 0.00-4.00 Comments: This test was performed using the TPSA assay method for theDep-XploraExos chemistry system. Values obtained with differentassay methods cannot be used interchangably.When changing PSA assays in the course of monitoring apatient, additional sequential testing should be carriedout to confirm baseline values. :09 LIPID VLDL 29 mg/dL (Normal) Range: 5-40 LDL 79 mg/dL (Normal) Range: 0-130 HDL 40 mg/dL (Normal) Comments: Reference RangeHDL <40 mg/dL Low HDL CholesterolHDL >or= 60 mg/dL High HDL Cholesterol TRIG 144 mg/dL (Normal) Range: 0-199 Comments: Serum Triglycerides Reference IntervalNormal <150 mg/dLBorderline high 150 - 199 mg/dLHigh 200 - 499 mg/ dLVery High > or = 500 mg/dL CHOL 148 mg/dL (Normal) Comments: <200 mg/dL Bzadxxibj718-569 mg/dL Borderline>240 mg/dL High Risk :09 LIVER BID 0.16 mg/dL (Normal) Range: 0.00-0.30 BIT 0.70 mg/dL (Normal) Range: 0.00-1.00 ALT 21 U/L (Normal) Range: 12-78 ALK 66 U/L (Normal) Range: 45-117 AST 17 U/L (Normal) Range: 15-37 ALB 3.8 g/dL (Normal) Range: 3.4-5.0 TPROT 7.1 g/dL (Normal) Range: 6.4-8.2 :46 PSA (PROSTATE SPECIFIC Comments: screening; PATIENT WAS FASTINGPERFORMED BY: StorwizeSam[facility] [id number] ANTIGEN) (V76.44) Prostate Specific Ag, 1.9 ng/mL (Normal) Range: 0.0-4.0 Serum Comments: Mitro ECLIA methodology. .According to the [place] [employer], Serum PSA shoulddecrease and remain at undetectable levels after radicalprostatectomy. The AUA defines biochemical recurrence as an initialPSA value 0.2 ng/mL or greater followed by a subsequent confirmatoryPSA value 0.2 ng/mL or greater.Values obtained with d ifferent assay methods or kits cannot be usedinterchangeably. Results cannot be interpreted as absolute evidenceof the presence or absence of malignant disease. :46 URINALYSIS, W/ MICRO ([id number]) Comments: PATIENT WAS FASTINGPERFORMED BY: Anzode6370 [facility] MineralsSam[facility] Center [id number] Microscopic Examination See below: (Normal) Nitrite, Urine Negative (Normal) Urobilinogen,Semi-Qn 0.2 mg/dL (Normal) Range: 0.0-1.9 Bilirubin Negative (Normal) Occult Blood Negative (Normal) Ketones Trace (Abnormal) Glucose Negative (Normal) Protein Trace (Normal) Appearance Clear (Normal) WBC Esterase Trace (Abnormal) Urine-Color Yellow (Normal) pH 5.5 (Normal) Range: 5.0-7.5 Specific [place] 1.026 (Normal) Range: 1.005-1.030 :46 MICROALBUMIN: CREATININE RATIO Comments: PATIENT WAS FASTINGPERFORMED BY: Join The CompanyAcuteCare Health SystemHlcwgl3286 [facility] [id number] ([id number]) AND ([id number]) Microalb/Creat Ratio 20.0 {mg/g_creat} (Normal) Range: 0.0-30.0 Creatinine, Urine 307.4 mg/dL (Normal) Range: 22.0-328.0 Microalbumin, Urine 61.5 ug/mL (Abnormal) Range: 0.0-17.0 97-Wna-31236:46 METABOLIC PANEL, COMPREHENSIVE Comments: PATIENT WAS FASTINGPERFORMED BY: Anzode6370 [facility] SpringsJellyfishArt.comSampson Regional Medical Center [id number] ([id number]) ALT (SGPT) 13 [iU]/L (Normal) Range: 0-44 AST (SGOT) 15 [iU]/L (Normal) Range: 0-40 Alkaline Phosphatase, S 60 [iU]/L (Normal) Range: 25-160 Bilirubin, Total 0.6 mg/dL (Normal) Range: 0.0-1.2 A/G Ratio 1.6 (Normal) Range: 1.1-2.5 Globulin, Total 2.5 g/dL (Normal) Range: 1.5-4.5 Albumin, Serum 4.1 g/dL (Normal) Range: 3.5-4.8 Protein, Total, Serum 6.6 g/dL (Normal) Range: 6.0-8.5 Calcium, Serum 9.8 mg/dL (Normal) Range: 8.6-10.2 Carbon Dioxide, Total 25 mmol/L (Normal) Range: 20-32 Chloride, Serum 107 mmol/L (Normal) Range: 97-108 Potassium, Serum 3.8 mmol/L (Normal) Range: 3.5-5.2 Sodium, Serum 143 mmol/L (Normal) Range: 134-144 BUN/Creatinine Ratio 27 (Abnormal) Range: 10-22 eGFR If Africn Am 95 mL/min/1.73 (Normal) Creatinine, Serum 0.94 mg/dL (Normal) Range: 0.76-1.27 eGFR If NonAfricn Am 82 mL/min/1.73 (Normal) BUN 25 mg/dL (Normal) Range: 8-27 Glucose, Serum 96 mg/dL (Normal) Range: 65-99 :46 LIPID PANEL (69711) Comments: send results to Dr Peguero; PATIENT WAS FASTINGPERFORMED BY: Join The CompanyAcuteCare Health SystemAjgjpu2996 [facility] [id number] LDL Cholesterol Calc 71 mg/dL (Normal) Range: 0-99 LDL/HDL Ratio 1.7 {ratio_units} (Normal) Range: 0.0-3.6 VLDL Cholesterol Sree 23 mg/dL (Normal) Range: 5-40 HDL Cholesterol 43 mg/dL (Normal) Comments: According to ATP-III Guidelines, HDL-C >59 mg/dL is considered anegative risk factor for CHD. Triglycerides 113 mg/dL (Normal) Range: 0-149 Cholesterol, Total 137 mg/dL (Normal) Range: 100-199 :46 CBC WITH MANUAL DIFF Comments: PATIENT WAS FASTINGPERFORMED BY: Join The CompanyAcuteCare Health SystemMezeah6323 [facility] [id number] Information: [id number] ([id number]) Immature Grans (Abs) 0.0 {x10E3/uL} (Normal) Range: 0.0-0.1 Immature Granulocytes 0 % (Normal) Range: 0-2 Baso (Absolute) 0.0 {x10E3/uL} (Normal) Range: 0.0-0.2 Eos (Absolute) 0.3 {x10E3/uL} (Normal) Range: 0.0-0.4 Monocytes(Absolute) 0.5 {x10E3/uL} (Normal) Range: 0.1-1.0 Lymphs (Absolute) 1.5 {x10E3/uL} (Normal) Range: 0.7-4.5 Neutrophils (Absolute) 3.0 {x10E3/uL} (Normal) Range: 1.8-7.8 Basos 1 % (Normal) Range: 0-3 Eos 5 % (Normal) Range: 0-7 Monocytes 10 % (Normal) Range: 4-13 Lymphs 29 % (Normal) Range: 14-46 Neutrophils 55 % (Normal) Range: 40-74 Platelets 166 {x10E3/uL} (Normal) Range: 140-415 RDW 13.8 % (Normal) Range: 12.3-15.4 MCHC 33.7 g/dL (Normal) Range: 31.5-35.7 MCH 30.3 pg (Normal) Range: 26.6-33.0 MCV 90 fL (Normal) Range: 79-97 Hematocrit 40.9 % (Normal) Range: 37.5-51.0 Hemoglobin 13.8 g/dL (Normal) Range: 12.6-17.7 RBC 4.55 {x10E6/uL} (Normal) Range: 4.14-5.80 WBC 5.3 {x10E3/uL} (Normal) Range: 4.0-10.5 :46 TSH (31228) Comments: PATIENT WAS FASTINGPERFORMED BY: QuanlightAt[facility] [id number] TSH 1.790 {uIU/mL} (Normal) Range: 0.450-4.500 :46 Microscopic Examination Comments: PATIENT WAS FASTINGPERFORMED BY: makerist [facility] [id number] Bacteria Few (Normal) Mucus Threads Present (Normal) Crystal Type Calcium Oxalate (Normal) Crystals Present (Abnormal) Epithelial Cells (non renal) 0-10 {/hpf} (Normal) Range: 0 - 10 RBC 0-3 {/hpf} (Normal) Range: 0 - 3 WBC 0-5 {/hpf} (Normal) Range: 0 - 5 :26 MONTSE CULTURE-OTHER (94118) Comments: PATIENT NOT FASTINGPERFORMED BY: [employer] [place] [employer] [facility] [id number] Information: SRC:THRT [id number] Result 1 RRF (Normal) Comments: Routine respiratory sana Upper Respiratory Culture Final report (Normal) 3-Bls-018867:09 Rapid Strep Test, Office (57026) Rapid Strep Test, Office Negative (Normal) 94-Aso-296036:04 Microscopic Examination Comments: PATIENT NOT FASTINGPERFORMED BY: [employer] [place] [employer] [facility] [id number] Bacteria Few (Normal) Mucus Threads Present (Normal) Crystal Type Calcium Oxalate (Normal) Crystals Present (Abnormal) Epithelial Cells (non renal) None seen {/hpf} (Normal) Range: 0 - 10 RBC 4-10 {/hpf} (Abnormal) Range: 0 - 3 WBC 0-5 {/hpf} (Normal) Range: 0 - 5 :04 PSA (PROSTATE SPECIFIC Comments: PATIENT NOT FASTINGPERFORMED BY: [employer] Vixblf2900 [facility] [id number] ANTIGEN) (V76.44) Prostate Specific Ag, 1.6 ng/mL (Normal) Range: 0.0-4.0 Serum Comments: Neos TherapeuticsIA methodology..According to the [place] [employer], Serum PSA shoulddecrease and remain at undetectable levels after radicalprostatectomy. The AUA defines biochemical recurrence a s an initialPSA value 0.2 ng/mL or greater followed by a subsequent confirmatoryPSA value 0.2 ng/mL or greater.Values obtained with different assay methods or kits cannot be usedinterchangeably. Results cannot be interpreted as absolute evidenceof the presence or absence of malignant disease. :04 URINALYSIS (83172) Comments: PATIENT NOT FASTINGPERFORMED BY: [employer] Hwsmnz8399 [facility] [id number] Information: [id number] Microscopic Examination See below: (Normal) Bilirubin Negative (Normal) Glucose Negative (Normal) Ketones Trace (Abnormal) Nitrite, Urine Negative (Normal) Occult Blood Trace (Abnormal) Urobilinogen,Semi-Qn 0.2 mg/dL (Normal) Range: 0.0-1.9 Protein Trace (Normal) WBC Esterase Negative (Normal) Appearance Clear (Normal) pH 6.0 (Normal) Range: 5.0-7.5 Urine-Color Yellow (Normal) Specific [place] 1.028 (Normal) Range: 1.005-1.030 :04 CBC (Auto) (56608) Comments: PATIENT NOT FASTINGPERFORMED BY: Join The CompanyAcuteCare Health SystemTdktul8145 [facility] [id number] Platelets 139 {x10E3/uL} (Abnormal) Range: 140-415 Hematocrit 41.1 % (Normal) Range: 36.0-50.0 MCH 30.0 pg (Normal) Range: 27.0-34.0 MCHC 33.8 g/dL (Normal) Range: 32.0-36.0 MCV 89 fL (Normal) Range: 80-98 RDW 13.6 % (Normal) Range: 11.7-15.0 Hemoglobin 13.9 g/dL (Normal) Range: 12.5-17.0 RBC 4.64 {x10E6/uL} (Normal) Range: 4.10-5.60 WBC 5.4 {x10E3/uL} (Normal) Range: 4.0-10.5 28-Vzc-696218:04 Metabolic Panel, Basic Comments: PATIENT NOT FASTINGPERFORMED BY: LabCoAcuteCare Health SystemRskzuk1854 [facility] [id number] ([id number]) Calcium, Serum 9.9 mg/dL (Normal) Range: 8.6-10.2 Carbon Dioxide, Total 24 mmol/L (Normal) Range: 20-32 Chloride, Serum 105 mmol/L (Normal) Range: 97-108 Potassium, Serum 4.0 mmol/L (Normal) Range: 3.5-5.2 BUN/Creatinine Ratio 27 (Normal) Range: 8-27 eGFR AfricanAmerican >59 mL/min/1.73 Comments: Note: Persistent reduction for 3 months or more in an eGFR<60 mL/min/1.73 m2 defines CKD. Patients with eGFR values>/=60 mL/min/1.73 m2 may also have CKD if evidence of persistentproteinuria is (Normal) present. Additional information may be found [email or web address]. Sodium, Serum 140 mmol/L (Normal) Range: 135-145 Creatinine, Serum 0.96 mg/dL (Normal) Range: 0.76-1.27 eGFR >59 mL/min/1.73 (Normal) BUN 26 mg/dL (Normal) Range: 5-26 Glucose, Serum 97 mg/dL (Normal) Range: 65-99 :10 BMP Comments: Please Note: TROPONIN REFERENCE RANGE CHANGEEffective JANUARY 23, 2009. BUN 24 mg/dL (Abnormal) Range: 7-18 BUN/CRE 26.7 {RATIO} (Abnormal) Range: 10-20 CA 8.2 mg/dL (Abnormal) Range: 8.5-10.1 CL 108 mmol/L (Abnormal) Range: 98-107 CO2 26.0 mmol/L (Normal) Range: 21.0-32.0 CREAT,SERUM 0.9 mg/dL (Normal) Range: 0.8-1.3 EST GFR 89 mL/min (Normal) EST GFR - AA 108 mL/min (Normal) GAP 4 (Abnormal) Range: 5-15 GLU 95 mg/dL (Normal) Range: 70-110 K 3.8 mmol/L (Normal) Range: 3.5-5.1 NA 138 mmol/L (Normal) Range: 136-145 :10 CBCD EOS 1 % (Normal) Range: 0-5 LYMPH 3 % (Abnormal) Range: 19-41 MONOCYTE 4 % (Normal) Range: 0-10 PLT EST MOD DEC (Normal) RED CELL MORPH SeeNote {NORMAL} (Normal) Comments: Result: NORM C+C ABSOLUTE NEUT 6.7 3/uL (Normal) Range: 2.0-7.7 BAND 1 % (Normal) Range: 0-5 CELLS COUNTED 100 (Normal) HCT 34.7 % (Abnormal) Range: 40-54 HGB 11.9 g/dL (Abnormal) Range: 14.0-18.0 MCH 30.9 pg (Normal) Range: 27.0-32.0 MCHC 34.2 g/dL (Normal) Range: 32-36 MCV 90.2 fL (Normal) Range: 80-94 MPV 7.7 fL (Normal) Range: 6.5-12.0 PLT 99 K/mm3 (Abnormal) Range: 150-450 RBC 3.85 {M/mm3} (Abnormal) Range: 4.6-6.2 RDW 14.9 % (Abnormal) Range: 11.6-14.6 SEGS 91 % (Abnormal) Range: 47-70 WBC 7.7 K/mm3 (Normal) Range: 4.4-11.0 :10 CKMB Comments: Please Note: TROPONIN REFERENCE RANGE CHANGEEffective JANUARY 23, 2009. CPK TOTAL 32 U/L (Abnormal) Range: 35-232 CPKMB < 0.5 ng/mL (Normal) Range: 0.0-5.0 Comments: CK-MB and RI Interpretation MB Relative IndexNon-AMI <or= 5 NAIndeterminate > 5 <or= 4AMI > 5 > 4 40-Krs-91168:10 TROPONIN-I < 0.02 ng/mL (Normal) Comments: Please Note: TROPONIN REFERENCE RANGE CHANGEEffective JANUARY 23, 2009. Comments: TROPONIN-I EXPECTED VALUES <0.05 NEGATIVE0.06 - 0.59 AT RISK OF WI> OR = 0.60 SUGGEST WI 69-Rza-49248:25 CKMB Comments: Please Note: TROPONIN REFERENCE RANGE CHANGEEffective JANUARY 23, 2009. CPK TOTAL 43 U/L (Normal) Range: 35-232 CPKMB < 0.5 ng/mL (Normal) Range: 0.0-5.0 Comments: CK-MB and RI Interpretation MB Relative IndexNon-AMI <or= 5 NAIndeterminate > 5 <or= 4AMI > 5 > 4 23-Vsc-29562:25 TROPONIN-I < 0.02 ng/mL (Normal) Comments: Please Note: TROPONIN REFERENCE RANGE CHANGEEffective JANUARY 23, 2009. Comments: TROPONIN-I EXPECTED VALUES <0.05 NEGATIVE0.06 - 0.59 AT RISK OF [place]> OR = 0.60 SUGGEST WI 34-Ltp-739129:10 TROPONIN-I 0.03 ng/mL (Normal) Comments: Please Note: TROPONIN REFERENCE RANGE CHANGEEffective JANUARY 23, 2009. Comments: TROPONIN-I EXPECTED VALUES <0.05 NEGATIVE0.06 - 0.59 AT RISK OF [place]> OR = 0.60 SUGGEST WI 70-Ufv-580802:55 CKMB Comments: COMMENTS: ADD TO TROP DRAWN IN ED CPKMB < 0.5 ng/mL (Normal) Range: 0.0-5.0 Comments: CK-MB and RI Interpretation MB Relative IndexNon-AMI <or= 5 NAIndeterminate > 5 <or= 4AMI > 5 > 4 CPK TOTAL 39 U/L (Normal) Range: 35-232 :22 LIPID VLDL 20 mg/dL (Normal) Range: 5-40 HDL 35 mg/dL (Normal) Comments: Reference RangeHDL <40 mg/dL Low HDL CholesterolHDL >or= 60 mg/dL High HDL Cholesterol LDL 53 mg/dL (Normal) Range: 0-130 TRIG 99 mg/dL (Normal) Comments: Serum Triglycerides Reference IntervalNormal <150 mg/dLBorderline high 150 - 199 mg/dLHigh 200 - 499 mg/ dLVery High > or = 500 mg/dL CHOL 108 mg/dL (Normal) Comments: <200 mg/dL Vgfpxclxm924-846 mg/dL Borderline>240 mg/dL High Risk :22 LIVER D BILI 0.07 mg/dL (Normal) Range: 0.00-0.30 T BILI 0.50 mg/dL (Normal) Range: 0.00-1.00 ALB 3.4 g/dL (Normal) Range: 3.4-5.0 ALK P 74 U/L (Normal) Range: 50-136 ALT 17 U/L (Normal) Range: 12-78 AST 11 U/L (Abnormal) Range: 15-37 T PROT 6.8 g/dL (Normal) Range: 6.4-8.2 :49 LIPID CHOL 116 mg/dL (Normal) Comments: <200 mg/dL Desirable 200-240 mg/dL Borderline >240 mg/dL High Risk HDL 33 mg/dL (Abnormal) Comments: Reference Range HDL <40 mg/dL Low HDL Cholesterol HDL >or= 60 mg/dL High HDL Cholesterol LDL 60 mg/dL (Normal) Range: 0-130 TRIG 116 mg/dL (Normal) Comments: Serum Triglycerides Reference Interval Normal <150 mg/dL Borderline high 150 - 199 mg/dL High 200 - 499 mg/dL Very High > or = 500 mg/dL VLDL 23 mg/dL (Normal) Range: 5-40 :49 LIVER D BILI 0.22 mg/dL (Normal) Range: 0.00-0.30 T BILI 0.70 mg/dL (Normal) Range: 0.00-1.00 ALB 3.7 g/dL (Normal) Range: 3.4-5.0 ALK P 63 U/L (Normal) Range: 50-136 ALT 18 U/L (Abnormal) Range: 30-65 AST 10 U/L (Abnormal) Range: 15-37 T PROT 7.1 g/dL (Normal) Range: 6.4-8.2 :16 PET/CT TUMOR BASE TO MID THIGH Radiology Report See Note (Normal) Comments: Exam Number: [id number] PET CT. CLINICAL STATEMENTPulmonary nodule. Correlation is made with CT chest with contrast June 25, 2007. TECHNIQUEFollowing the intravenous administration of 13.9 mCi F18 FDG, axi alimages were obtained from the top of the ears to the mid thighs.Noncontrast axial images were obtained for localization purposes. FINDINGSNo abnormal tissue in the PET finding. No abnormal metaboli c activityis seen within the head or the neck. There is a focal area ofhypermetabolic activity seen in the medial left lung base,corresponding to the nodule seen on the prior examination. Thenodule de monstrates a maximum SUV equal to 7.4. No other areas ofabnormal hypermetabolic activity are seen within the chest. Hypermetabolic activity is seen within the myocardium, which is normalphysiologic act ivity. There is a focus of hypermetabolic activityseen along the posterior left lateral border of the heart, which islikely vascular in nature, and no corresponding mass lesion isidentified on the CT p ortion of the exam. Within the abdomen and pelvis, no abnormal foci of hypermetabolicactivity is demonstrated. There are some linear areas ofhypermetabolic activity corresponding to bowel. CT FINDINGSN o lymphadenopathy or soft tissue mass is seen within the neck. There is no axillary or mediastinal lymphadenopathy. The hilarregions are not evaluated due to lack of intravenous contrast. Nopericard ial effusion or pericardial thickening. In the right lung, there are 2 nodules. One along the minor fissuremeasures approximately 0.8 cm in diameter. No hypermetabolicactivity is associated with this nodule. There is a 2nd nodule seenwithin the right lower lobe, measuring approximately 0.7 cm indiameter. No hypermetabolic activity is associated with this nodule. There are some linear opacities in the right lung base, which mayreflect subsegmental atelectasis. One area of ground glass opacity isalso seen along the bronchovascular bundle within the right lowerlobe, which may reflect atelectasis. On the left, there is a dominant nodule within the left lower lobe.This nodule measures approximately 2.7 cm x 2.5 cm and corresponds toa hypermetabolic focus seen on the PET scan. A 1-cm pulmonary noduleis seen more inferiorly within the medial left lung base. Nohypermetabolic activity is seen corresponding to this lesion. Within the abdomen, the liver, spleen, pancreas, gallbladder, adrenalglan ds and kidneys are within normal limits. There is nolymphadenopathy or ascites. The small bowel and colon are normal incourse and caliber. There are a few scattered diverticula seen within the sigmoi d colon. No evidence of acute diverticulitis. Within the pelvis, the rectum, prostate, seminal vesicles, andbladder are normal. There is no lymphadenopathy or ascites within thepelvis. Multilevel degenerative changes are seen throughout the spine. Nosuspicious lytic or sclerotic osseous lesions. The patient is statuspost sternotomy. IMPRESSION1. Left lower lobe nodule measuring 2.5 cm x 2.7 cm . This is consistent with malignancy demonstrating a maximum SUV of 7.4. 2. There are several nodules within the right lung and a 2nd nodule within the left lower lobe measuring 1 cm in diameter . These nodules do not demonstrate hypermetabolic activity. Lack of activity with the subcentimeter nodules may reflect a false negative finding due to the small size and respiration motion. Reported By: PROSPER SANTORO M.D. 25-Jun-20079:48 CHEST WITH CONTRAST Radiology Report See Note (Normal) Comments: Exam Number: [id number] CT SCAN OF CHEST. HISTORYNeoplasm of uncertain behavior. TECHNIQUEScans were obtained at 5-mm intervals from the lung apices to theadrenals with the intravenous administration of 100 ml of Isovue 300. COMPARISONThe current study is compared to the CT of the abdomen performed 2006. FINDINGSAt the time of the CT of the abdomen, a nodule was identified in theleft lower lo be, measuring 14 ml. The lesion measured [id number] ml in maximum dimension on the biopsy images of August 19, 2006. Thelesion now measures 2.8 cm. Although a negative biopsy has beenobtained in t he past, the increase in size makes this lesionsuspicious for malignancy, and further evaluation of the lesion by PETscan or biopsy is recommended. Also present within the lung is a 6-mmdensity in the superior segment of the right lower lobe, a 7-mmdensity in the right middle lobe, and a 10-ml density in the leftlower lobe. In the lingula is a 3-mm density, which is questionablycalcified. There is a prominent lymph node in the right hilummeasuring approximately 1.5 cm in short axis. This is a locationwhere a prominent lymph node is rather frequently seen. Thepossibility of a metastatic lesion t o lymph node cannot be excluded,although it is possible that this represents a reactive node. Thereis calcification in the wall of the thoracic aorta, compatible witharteriosclerotic disease. There is no aneurysmal dilatation. Thereis prominence of caliber of the main pulmonary arteries, upper normalin size. There is a moderate-sized hiatal hernia. There issignificant underlying emphysema. What is seen of the liver is withinnormal limits. No adrenal lesion is identified. There aredegenerative changes of the spine. IMPRESSION1. There is a 2.8 cm nodule in the left lower lobe. There are additional smaller scattered nodules, as discussed above. The findings are suspicious for malignancy. 2. There is a prominent right hilar lymph node, which may represent a reactive node. Met astatic lymph node is not entirely excluded.3. There is a moderate-sized hiatal hernia.4. No abnormality of the visualized portion of the liver or adrenals is identified. 5. Further evaluation of this patient is needed to exclude malignancy. For further evaluation, PET scan and/or biopsy of the left lower lobe nodule is recommended. Reported By: DEXTER ANDRADE M.D. :05 TSH ([id number]) Comments: PATIENT WAS FASTINGPERFORMED BY: [employer]6370 [facility] [id number] TSH 2.084 {uIU/mL} (Normal) Range: 0.350-5.500 Comments: Adult TSH concentrations below 5.5 uIU/mL does not rule out the presence of subclinical hypothyroidism. :05 METABOLIC PANEL, COMPREHENSIVE Comments: PATIENT WAS FASTINGPERFORMED BY: [facility] DigitalAcuteCare Health SystemYrhxli6149 [facility] [id number] ([id number]) A/G Ratio 1.7 (Normal) Range: 1.1-2.5 Albumin, Serum 4.5 g/dL (Normal) Range: 3.6-4.8 Alkaline Phosphatase, S 82 [iU]/L (Normal) Range: 25-160 ALT (SGPT) 12 [iU]/L (Normal) Range: 0-55 AST (SGOT) 19 [iU]/L (Normal) Range: 0-40 Bilirubin, Total 0.6 mg/dL (Normal) Range: 0.1-1.2 BUN/Creatinine Ratio 22 (Normal) Range: 8-27 Calcium, Serum 9.9 mg/dL (Normal) Range: 8.5-10.6 Carbon Dioxide, Total 23 mmol/L (Normal) Range: 20-32 Chloride, Serum 104 mmol/L (Normal) Range: 97-108 Creatinine, Serum 0.90 mg/dL (Normal) Range: 0.50-1.50 Globulin, Total 2.6 g/dL (Normal) Range: 1.5-4.5 Glom Filt Rate, Est >60 mL/min (Normal) Range: 60-137 If -Qatari >60 mL/min (Normal) Range: 60-137 Comments: Note: Persistent reduction for 3 months or more in an eGFR<60 mL/min/1.73 m2 defines CKD. Patients with eGFR values>/=60 mL/min/1.73 m2 may also have CKD if evidence of persistentproteinuria is present. .Additional information may be found at www.kdoqi.org. Potassium, Serum 4.4 mmol/L (Normal) Range: 3.5-5.2 Protein, Total, Serum 7.1 g/dL (Normal) Range: 6.0-8.5 Sodium, Serum 140 mmol/L (Normal) Range: 135-145 BUN 20 mg/dL (Normal) Range: 5-26 Glucose, Serum 95 mg/dL (Normal) Range: 65-99 [id number]-Ixf-[id number]:05 CBC WITH MANUAL DIFF ([id number]) Comments: PATIENT WAS FASTINGClinical Information: ADD DRAW FEE [id number] ADD J [id number] PERFORMED BY: LabCoAcuteCare [facility] SystemSuosll4701 [facility] [id number] Baso (Absolute) 0.1 {x10E3/uL} (Normal) Range: 0.0-0.2 Basos 1 % (Normal) Range: 0-3 Eos 4 % (Normal) Range: 0-7 Eos (Absolute) 0.2 {x10E3/uL} (Normal) Range: 0.0-0.4 Hematocrit 40.9 % (Normal) Range: 36.0-50.0 Hemoglobin 14.3 g/dL (Normal) Range: 12.5-17.0 Lymphs 29 % (Normal) Range: 14-46 Lymphs (Absolute) 1.7 {x10E3/uL} (Normal) Range: 0.7-4.5 MCH 30.8 pg (Normal) Range: 27.0-34.0 MCHC 34.9 g/dL (Normal) Range: 32.0-36.0 MCV 88 fL (Normal) Range: 80-98 Monocytes 7 % (Normal) Range: 4-13 Monocytes(Absolute) 0.4 {x10E3/uL} (Normal) Range: 0.1-1.0 Neutrophils 59 % (Normal) Range: 40-74 Neutrophils (Absolute) 3.4 {x10E3/uL} (Normal) Range: 1.8-7.8 Platelets 189 {x10E3/uL} (Normal) Range: 140-415 RBC 4.63 {x10E6/uL} (Normal) Range: 4.10-5.60 RDW 13.6 % (Normal) Range: 11.7-15.0 WBC 5.7 {x10E3/uL} (Normal) Range: 4.0-10.5 [id number]:05 PSA (PROSTATE SPECIFIC Comments: PATIENT WAS FASTINGPERFORMED BY: [facility]C.[facility]6370 [facility] [id number] ANTIGEN) (V76.44) Prostate Specific Ag, Serum 2.1 ng/mL (Normal) Range: 0.0-4.0 Comments: [employer] [facility] methodology [id number] CHEST, PA AND LATERAL Radiology Report See Note (Normal) Comments: Exam Number: [id number] PA AND LATERAL CHEST HISTORY Being done for following lung biopsy, patient somewhat short ofbreath. Cardiac configuration is normal. There are emphysematous changes.There is so me indistinctness around the nodule in the left lower lungfollowing a biopsy. There is a small pneumothorax of approximately3-5% in the left apex. There is an early infiltrate in the rightlower lung t hat was not seen on the previous study of May 29, 2006.No effusion is noted. There is spur formation mid dorsal spine. IMPRESSION1. Small pneumothorax left apical area.2. Early infiltrate right lower lung. Reported By: VALERIY LAU M.D. :17 BIOPSY/INJ,OR NEEDLE PLACEMENT Radiology Report See Note (Normal) Comments: Exam Number: [id number] PERCUTANEOUS LUNG BIOPSY HISTORY The patient has had abnormal CT scan with a 17 mm nodule seen in theleft lower lung. Dr. Rice wishes biopsy of this area. INFORMED CONSENT Informed consent had been obtained from the patient concerning theprocedure and possible major complications. The patient was alert andoriented times three and agreed to have the procedure performed. CONSCIOUS SEDATION2 mg of Versed and 100 mcg of Fentanyl were given at the beginning ofthe procedure. The patient was observed by the Radiology nurse andvital signs obtained every 15 minutes. At the en d of the procedure,the patient was returned to the prebiopsy mental status. PROCEDUREWith the patient in the prone position, the small lesion was localizedwith difficulty using Smart step technique. Se veral attempts weremade at different positions and angles to get past the ribs in orderto do the biopsy. The patient continued to be unable to stop in thesame place with his respirations. This made bi opsy extremelydifficult. I did attempt 2 biopsies that were either in or very closeto the nodule. Preliminary reports from the pathologist did not showany atypical cells. There was a small amount of tissue aspirated withboth attempts. Hopefully cytologic analysis will be definitive. Ifnot, I do not think re-biopsying is going to be helpful. An openbiopsy will have to be performed if so desired. IMPRESSIONSuccessful percutaneous CT guided lung biopsy with considerabledifficulty, see above. Reported By: VALERIY LAU M.D. :00 TISS/FLUID P-BX/CY (Normal) Comments: OPERATION CT guided bx of lung nodule PRE-OPERATIVE DIAGNOSIS Nodule left posterior TISSUE SUBMITTED A- Bx lung 2 fragments, B- FNA, CB, 2 pap, 5 imprint MICROSCOPIC DIAGNOSIS A. Left lung, biopsy: Benign fibrocollagenous tissue. No evidence of malignancy. COMMENT B - The specimen contains blood and rare macrophages. GROSS DESCRIPTION A - Received is one container designated lung. The speci men consists of two minute fragments of light torrez soft tissue measuring in aggregate 0.1 x 0.1 x less than 0.1 cm. The specimen is totally submitted in one cassette. CYTOLOGY GROSS B - Received is 0 .1 ml of reddish fluid designated left posterior lung nodule (2 passes). Five imprints and 2 paps are made from the submitted fluid and the rest is added to formalin for cell block preparation. Sub mitted for cytology study. / AM:ch 08/19/06 TC:5 REPORT SIGNED: ELIDIA VEGA 08/20/06:33 PLT 186 K/mm3 (Normal) Range: 150-450 :33 PRO TIME INR 1.0 (Normal) PROTIME 11.6 s (Normal) Range: 10.6-13.2 :33 PTT 30.4 s (Normal) Range: 24.6-36.6 :31 LIPID CHOL 118 mg/dL (Normal) Comments: <200 mg/dL Desirable 200-240 mg/dL Borderline >240 mg/dL High Risk HDL 31 mg/dL (Abnormal) Comments: Reference Range HDL <40 mg/dL Low HDL Cholesterol HDL >or= 60 mg/dL High HDL Cholesterol LDL 66 mg/dL (Normal) Range: 0-130 TRIG 106 mg/dL (Normal) Comments: Serum Triglycerides Reference Interval Normal <150 mg/dL Borderline high 150 - 199 mg/dL High 200 - 499 mg/dL Very High > or = 500 mg/dL VLDL 21 mg/dL (Normal) Range: 5-40 :31 LIVER ALB 3.3 g/dL (Abnormal) Range: 3.4-5.0 ALK P 78 U/L (Normal) Range: 50-136 ALT 26 [iU]/L (Abnormal) Range: 30-65 AST 14 U/L (Abnormal) Range: 15-37 D BILI 0.12 mg/dL (Normal) Range: 0.00-0.30 T BILI 0.37 mg/dL (Normal) Range: 0.00-1.00 T PROT 7.0 g/dL (Normal) Range: 6.4-8.2 :45 BMP Comments: COMMENTS: THIS AMPrecautions*: NOT APPLICABLE BUN 12 mg/dL (Normal) Range: 7-18 BUN/CRE 15.0 {RATIO} (Normal) Range: 10-20 CA 8.8 mg/dL (Normal) Range: 8.5-10.1 CL 103 mmol/L (Normal) Range: 98-107 CO2 31.3 mmol/L (Abnormal) Range: 22.0-29.0 CREAT,SERUM 0.8 mg/dL (Normal) Range: 0.8-1.3 GAP 3 (Abnormal) Range: 5-15 GLU 94 mg/dL (Normal) Range: 70-110 K 3.7 mmol/L (Normal) Range: 3.5-5.1 NA 137 mmol/L (Normal) Range: 136-145 :45 CBC Comments: COMMENTS: THIS AMPrecautions*: NOT APPLICABLE HCT 30.3 % (Abnormal) Range: 40-54 HGB 10.5 g/dL (Abnormal) Range: 14.0-18.0 MCH 31.4 pg (Normal) Range: 27.0-32.0 MCHC 34.7 g/dL (Normal) Range: 32-36 MCV 90.6 fL (Normal) Range: 80-94 PLT 198 K/mm3 (Normal) Range: 150-450 RBC 3.34 {M/mm3} (Abnormal) Range: 4.6-6.2 RDW 13.2 % (Normal) Range: 11.6-14.6 WBC 10.8 K/mm3 (Normal) Range: 4.4-11.0 [id number] TURP P-PROS (Normal) Comments: OPERATION Cystoscopy, TUR prostate PRE-OPERATIVE DIAGNOSIS Enlarged prostate, outlet obstruction POST-OPERATIVE DIAGNOSIS Same TISSUE SUBMITTED Prostate tissue MICROSCOPIC DIAGNOSIS Prostate, trans urethral resection: Acute, chronic and granulomatous prostatitis. No evidence of malignancy. Negative for acid fast bacilli and fungal organisms. AM: 06/04/06 COMMENT This case has been review ed in consultation with Dr. Morrow who concurs with the above diagnosis. IDC:SJ GROSS DESCRIPTION Received in formalin labeled with patient name and number and designated prostate tissue are mul tiple irregular fragments of pink-torrez, rubbery, soft tissue that in aggregate weigh 22.7 gm and measure in aggregate 6 x 5 x 2.5 cm. The specimen is totally submitted in 12 cassettes. / SJ:van 7 TC:2 REPORT SIGNED: ELIDIA VEGA 06/04/0629-May-20065-Joq-[id number]:08 CALCULI P-CALC (Normal) Comments: OPERATION Cytoscopy, litholapaxy, laser, bladder PRE-OPERATIVE DIAGNOSIS Bladder stone POST-OPERATIVE DIAGNOSIS Same TISSUE SUBMITTED Bladder stone COMMENT The calculus is submitted in its entirety for chemical stone analysis. The results from this study will be reported separately. GROSS DESCRIPTION Received in formalin labeled with patient name and number and designated bladder stone are multiple fragments of torrez brown stone measuring in aggregate 2 x 0.5 x 0.3 cm. The entire specimen is submitted for stone analysis. /SJ:saturnino 06/01/06 REPORT SIGNED: WES MORROW 06/02/0629-May-20065-Vqf-806050:34 CALCULI [id number] CA OXAL DIHYDR 30 % (Normal) CA OXAL MONOHYD 60 % (Normal) CA PHOSPHATE 10 % (Normal) COLOR Brown (Abnormal) Comment Comment (Normal) Comments: Percentage (Represents the % composition) COMMENT Comment (Normal) Comments: Physician questions regarding Calculi Analysis contactLabCorp at: [phone].Performed At: [address] [id number] NIDUS SeeNote (Normal) Comments: Result: No Nidus visualized PHOTO Comment (Normal) Comments: Photograph will follow under separate cover. SIZE Comment (Normal) Comments: Specimen received as fragments. SURFACE CRYSTAL SeeNote (Normal) Comments: Result: Comment: Calcium oxalate dihydrate WEIGHT 146.0 mg (Normal) :40 BMP Comments: Precautions*: NOT APPLICABLE BUN 11 mg/dL (Normal) Range: 7-18 BUN/CRE 13.8 {RATIO} (Normal) Range: 10-20 CA 8.6 mg/dL (Normal) Range: 8.5-10.1 CL 105 mmol/L (Normal) Range: 98-107 CO2 27.2 mmol/L (Normal) Range: 22.0-29.0 CREAT,SERUM 0.8 mg/dL (Normal) Range: 0.8-1.3 GAP 6 (Normal) Range: 5-15 GLU 107 mg/dL (Normal) Range: 70-110 K 3.8 mmol/L (Normal) Range: 3.5-5.1 NA 138 mmol/L (Normal) Range: 136-145 :40 CBCD Comments: Precautions*: NOT APPLICABLE BASO% 0.1 % (Normal) Range: 0-1 EO% 3.1 % (Normal) Range: 0-5 HCT 29.4 % (Abnormal) Range: 40-54 HGB 10.3 g/dL (Abnormal) Range: 14.0-18.0 LY% 10.3 % (Abnormal) Range: 19-41 MCH 31.0 pg (Normal) Range: 27.0-32.0 MCHC 34.9 g/dL (Normal) Range: 32-36 MCV 88.9 fL (Normal) Range: 80-94 MONO% 10.2 % (Abnormal) Range: 0-10 MPV 8.1 fL (Normal) Range: 6.5-12.0 NEUT% 76.3 % (Abnormal) Range: 47-70 PLT 128 K/mm3 (Abnormal) Range: 150-450 RBC 3.31 {M/mm3} (Abnormal) Range: 4.6-6.2 RDW 13.3 % (Normal) Range: 11.6-14.6 WBC 6.7 K/mm3 (Normal) Range: 4.4-11.0 :50 ROUTINE UA Comments: Precautions*: NOT APPLICABLEHAS PATIENT HAD X-RAYS WITH CONTRAST THIS ADMISSION? N BILIRUBIN URINE SeeNote (Normal) Comments: Result: NEGATIVE CLARITY CLEAR (Normal) COLOR YELLOW (Normal) GLUCOSE, UR SeeNote (Normal) Comments: Result: NEGATIVE KETONE UR SeeNote mg/dL (Normal) Comments: Result: NEGATIVE LEUK ESTERASE SeeNote (Normal) Comments: Result: NEGATIVE NITRITE UR SeeNote (Normal) Comments: Result: NEGATIVE OCCULT BLOOD-UR 2+ (Abnormal) pH UR 5.5 (Normal) Range: 5.0-8.0 PROT DIPSTX TRACE (Normal) SP.GR. DIPSTX 1.020 (Normal) Range: 1.002-1.030 UROBILI 2.0 EU/dl (Abnormal) Range: 0.2 - 1.0 :50 CBCD,SMEAR DIFF Comments: Precautions*: NOT APPLICABLE LYMPH 13 % (Abnormal) Range: 19-41 MONOCYTE 10 % (Normal) Range: 0-10 PLT EST MOD DEC (Normal) RED CELL MORPH SeeNote {NORMAL} (Normal) Comments: Result: NORM C&C BAND 2 % (Normal) Range: 0-5 CELLS COUNTED 100 (Normal) HCT 30.1 % (Abnormal) Range: 40-54 HGB 10.4 g/dL (Abnormal) Range: 14.0-18.0 MCH 31.0 pg (Normal) Range: 27.0-32.0 MCHC 34.7 g/dL (Normal) Range: 32-36 MCV 89.2 fL (Normal) Range: 80-94 PLT 92 K/mm3 (Abnormal) Range: 150-450 RBC 3.38 {M/mm3} (Abnormal) Range: 4.6-6.2 RDW 13.4 % (Normal) Range: 11.6-14.6 SEGS 75 % (Abnormal) Range: 47-70 WBC 8.5 K/mm3 (Normal) Range: 4.4-11.0 :50 COMP METABOLIC Comments: Precautions*: NOT APPLICABLE A/G 0.6 {RATIO} (Abnormal) Range: 0.9-2.4 ALB 2.1 g/dL (Abnormal) Range: 3.4-5.0 ALK P 71 U/L (Normal) Range: 50-136 ALT 44 [iU]/L (Normal) Range: 30-65 AST 29 U/L (Normal) Range: 15-37 BUN 13 mg/dL (Normal) Range: 7-18 BUN/CRE 16.3 {RATIO} (Normal) Range: 10-20 CA 8.5 mg/dL (Normal) Range: 8.5-10.1 CL 108 mmol/L (Abnormal) Range: 98-107 CO2 27.2 mmol/L (Normal) Range: 22.0-29.0 CREAT,SERUM 0.8 mg/dL (Normal) Range: 0.8-1.3 GAP 4 (Abnormal) Range: 5-15 GLOB 3.5 g/dL (Normal) Range: 2.3-3.5 GLU 122 mg/dL (Abnormal) Range: 70-110 Comments: Fasting Glucose result from 110 to <126 mg/dL suggests IMPAIRED HOMEOSTASIS per A.D.A. criteria. K 4.1 mmol/L (Normal) Range: 3.5-5.1 NA 139 mmol/L (Normal) Range: 136-145 T BILI 0.84 mg/dL (Normal) Range: 0.00-1.00 T PROT 5.6 g/dL (Abnormal) Range: 6.4-8.2 :50 D BILI 0.40 mg/dL (Abnormal) Comments: Precautions*: NOT APPLICABLE Range: 0.00-0.30 :50 ESR Comments: Precautions*: NOT APPLICABLE SED RATE 75 mm/h (Abnormal) Range: 0-20 :05 CPK TOTAL 47 U/L (Normal) Comments: Precautions*: NOT APPLICABLEINDICATE CK '1', '2', '3', OR 'R' FOR RANDOM: 3 Range: 35-232 :05 CPKMB 0.6 ng/mL (Normal) Comments: Precautions*: NOT APPLICABLEINDICATE CK '1', '2', '3', OR 'R' FOR RANDOM: 3 Range: 0.0-5.0 Comments: CK-MB and RI Interpretation MB Relative Index Non-AMI <or= 5 NA Indeterminate > 5 <or= 4 AMI > 5 > 4 :05 TROPONIN-I 0.05 ng/mL (Normal) Comments: Precautions*: NOT APPLICABLEINDICATE CK '1', '2', '3', OR 'R' FOR RANDOM: 3 Comments: TROPONIN-I EXPECTED VALUES < 0.50 NEGATIVE 0.50 - 1.49 INDETERMINANT > OR = 1.50 SUGGEST WI :20 BMP Comments: COMMENTS: IN AMPrecautions*: NOT APPLICABLE BUN 28 mg/dL (Abnormal) Range: 7-18 BUN/CRE 25.5 {RATIO} (Abnormal) Range: 10-20 CA 8.9 mg/dL (Normal) Range: 8.5-10.1 CL 108 mmol/L (Abnormal) Range: 98-107 CO2 27.0 mmol/L (Normal) Range: 22.0-29.0 CREAT,SERUM 1.1 mg/dL (Normal) Range: 0.8-1.3 GAP 6 (Normal) Range: 5-15 GLU 130 mg/dL (Abnormal) Range: 70-110 Comments: Fasting Glucose result greater than or equal to 126 mg/dL suggests DIABETES MELLITUS per A.D.A. criteria. K 3.7 mmol/L (Normal) Range: 3.5-5.1 NA 141 mmol/L (Normal) Range: 136-145 67-Tzr-12314:20 CBC Comments: COMMENTS: IN AMPrecautions*: NOT APPLICABLE HCT 31.5 % (Abnormal) Range: 40-54 HGB 11.0 g/dL (Abnormal) Range: 14.0-18.0 MCH 31.1 pg (Normal) Range: 27.0-32.0 MCHC 34.8 g/dL (Normal) Range: 32-36 MCV 89.5 fL (Normal) Range: 80-94 PLT 85 K/mm3 (Abnormal) Range: 150-450 RBC 3.52 {M/mm3} (Abnormal) Range: 4.6-6.2 RDW 13.4 % (Normal) Range: 11.6-14.6 WBC 5.5 K/mm3 (Normal) Range: 4.4-11.0 :2 CPK TOTAL 60 U/L (Normal) Comments: Precautions*: NOT APPLICABLEINDICATE CK '1', '2', '3', OR 'R' FOR RANDOM: 2 0 Range: 35-232 :2 CPKMB < 0.5 ng/mL (Normal) Comments: Precautions*: NOT APPLICABLEINDICATE CK '1', '2', '3', OR 'R' FOR RANDOM: 2 0 Range: 0.0-5.0 Comments: CK-MB and RI Interpretation MB Relative Index Non-AMI <or= 5 NA Indeterminate > 5 <or= 4 AMI > 5 > 4 :2 MG 2.0 mg/dL (Normal) Comments: COMMENTS: IN AMPrecautions*: NOT APPLICABLE 0 Range: 1.5-2.2 :2 TROPONIN-I 0.12 ng/mL (Normal) Comments: Precautions*: NOT APPLICABLEINDICATE CK '1', '2', '3', OR 'R' FOR RANDOM: 2 0 Comments: TROPONIN-I EXPECTED VALUES < 0.50 NEGATIVE 0.50 - 1.49 INDETERMINANT > OR = 1.50 SUGGEST WI : BC No growth in 5 days. Comments: Precautions*: NOT APPLICABLE 55 (Normal) : BC No growth in 5 days. Comments: Precautions*: NOT APPLICABLE 50 (Normal) : CPK TOTAL 81 U/L (Normal) Comments: Precautions*: NOT APPLICABLEINDICATE CK '1', '2', '3', OR 'R' FOR RANDOM: 1 50 Range: 35-232 : CPKMB < 0.5 ng/mL (Normal) Comments: Precautions*: NOT APPLICABLEINDICATE CK '1', '2', '3', OR 'R' FOR RANDOM: 1 50 Range: 0.0-5.0 Comments: CK-MB and RI Interpretation MB Relative Index Non-AMI <or= 5 NA Indeterminate > 5 <or= 4 AMI > 5 > 4 : FOLATES,S 2013 19.6 ng/mL (Normal) Comments: Precautions*: NOT APPLICABLE 50 Comments: Indeterminate: 3.4 - 5.4 Deficient: <3.4 : IRON, SERUM 10 ug/dL (Abnormal) Comments: Precautions*: NOT APPLICABLE 50 Range: 35-150 : MG 1.9 mg/dL (Normal) Comments: Precautions*: NOT APPLICABLE 50 Range: 1.5-2.2 : TROPONIN-I 0.15 ng/mL (Normal) Comments: Precautions*: NOT APPLICABLEINDICATE CK '1', '2', '3', OR 'R' FOR RANDOM: 1 50 Comments: TROPONIN-I EXPECTED VALUES < 0.50 NEGATIVE 0.50 - 1.49 INDETERMINANT > OR = 1.50 SUGGEST WI : TSH 1.05 {uIU/mL} (Normal) Comments: Precautions*: NOT APPLICABLE 50 Range: 0.34-4.82 : VIT B12 1503 396 pg/mL (Normal) Comments: Precautions*: NOT APPLICABLE 50 Range: 211-911 Comments: Performed At: [facility] [place], [place] [id number]:50 BMP Comments: COMMENTS: STATPrecautions*: NOT APPLICABLE BUN 34 mg/dL (Abnormal) Range: 7-18 BUN/CRE 28.3 {RATIO} (Abnormal) Range: 10-20 CA 9.0 mg/dL (Normal) Range: 8.5-10.1 CL 103 mmol/L (Normal) Range: 98-107 CO2 22.6 mmol/L (Normal) Range: 22.0-29.0 CREAT,SERUM 1.2 mg/dL (Normal) Range: 0.8-1.3 GAP 11 (Normal) Range: 5-15 GLU 135 mg/dL (Abnormal) Range: 70-110 Comments: Fasting Glucose result greater than or equal to 126 mg/dL suggests DIABETES MELLITUS per A.D.A. criteria. K 3.3 mmol/L (Abnormal) Range: 3.5-5.1 NA 137 mmol/L (Normal) Range: 136-145 :50 CBC Comments: COMMENTS: STATPrecautions*: NOT APPLICABLE HCT 34.1 % (Abnormal) Range: 40-54 HGB 12.2 g/dL (Abnormal) Range: 14.0-18.0 MCH 31.8 pg (Normal) Range: 27.0-32.0 MCHC 35.7 g/dL (Normal) Range: 32-36 MCV 89.0 fL (Normal) Range: 80-94 PLT 85 K/mm3 (Abnormal) Range: 150-450 RBC 3.83 {M/mm3} (Abnormal) Range: 4.6-6.2 RDW 13.5 % (Normal) Range: 11.6-14.6 WBC 6.1 K/mm3 (Normal) Range: 4.4-11.0 :45 CULTURE, URINE Comments: Precautions*: NOT APPLICABLE URINE CULTURE See Note (Normal) Comments: Culture exhibits no growth. :45 ROUTINE UA Comments: COMMENTS: U/A - NO CULTUREPrecautions*: NOT APPLICABLEHAS PATIENT HAD X-RAYS WITH CONTRAST THIS ADMISSION? N BILIRUBIN URINE SeeNote (Normal) Comments: Result: NEGATIVE CLARITY CLOUDY (Normal) COLOR YELLOW (Normal) GLUCOSE, UR SeeNote (Normal) Comments: Result: NEGATIVE KETONE UR TRACE mg/dL (Abnormal) LEUK ESTERASE TRACE (Abnormal) NITRITE UR SeeNote (Normal) Comments: Result: NEGATIVE OCCULT BLOOD-UR 3+ (Abnormal) pH UR 5.5 (Normal) Range: 5.0-8.0 PROT CONF. 40 mg/dL (Abnormal) Range: 0-5 PROT DIPSTX 2+ (Abnormal) SP.GR. DIPSTX >=1.030 (Normal) Range: 1.002-1.030 UROBILI 1.0 EU/dl (Normal) Range: 0.2 - 1.0 :18 BC See Note (Normal) Comments: COMMENTS: BONEZZIPrecautions*: NOT APPLICABLE Comments: RESULTS CALLED TO LILIAN ANTONIO 05/19/06 APRIL BULLARD.REPORT READ BACK BY SAME . AMOUNT GROWTH GROWTH ORGANISM 1: ESCHERICHIA COLI ESCHERICHIA COLI: REACTION AMPICILLIN GN $ 4 S AMPICILLIN/SULBACTAM $$$ <=4 S AZTREONAM $$$ <=8 S CEFAZOLIN $ <=8 S CEFEPIME $$$ <=4 S CEFTAZIDIME $$$ <=8 S CEFTRIAXONE $$$ <=8 S CIPROFLOX ACIN GN $$$ <=0.5 S GENTAMICIN GN $ 1 S IMIPENEM $$$ <=4 S LEVOFLOXACIN $$ <=1 S PIPERACILLIN/TAZOBACTAM $$$ <=8 S TOBRAMYCIN $$ <=0.5 S TRIMETHOPRIM/SULFAMETHOXAZ $$ >=320 R :15 CULTURE, URINE Comments: COMMENTS: BONEZZIPrecautions*: NOT APPLICABLE URINE CULTURE See Note {CFU/mL} Comments: COLONY COUNT >100,000 ORGANISM 1: ESCHERICHIA COLI ESCHERICHIA COLI: REACTION AMOXICILLIN/CLAVULANIC ACID $$ <=8 S AMPICILLIN GN (Normal) $ 2 S CARBENICILLIN $$$ <=16 S CEFAZOLIN $ <=8 S CEFOXITIN $$ <=2 S CEFTRIAXONE $$$ <=8 S CEFUROXIME $$ <=4 S CIPROFLOXACIN GN $$$ <=0.5 S GENTAMICIN GN $ 1 S LEVOFLOXACIN $$ <=1 S NALIDIXIC ACID $$$ <=16 S NITROFURANTOIN $ <=32 S OFLOXACIN $$$ <=1 S TETRACYCLINE $$ <=1 S TICARCILLIN GN NOT PSEUDO $$$ <=16 S TRIMETHOPRIM/SULFAMETHOXAZ $$ >=320 R BC No growth in 5 days. Comments: COMMENTS: BONEZZIPrecautions*: NOT APPLICABLE :02 (Normal) :02 BMP Comments: COMMENTS: BONEZZIPrecautions*: NOT APPLICABLE BUN 35 mg/dL (Abnormal) Range: 7-18 BUN/CRE 29.2 {RATIO} (Abnormal) Range: 10-20 CA 9.4 mg/dL (Normal) Range: 8.5-10.1 CL 104 mmol/L (Normal) Range: 98-107 CO2 25.2 mmol/L (Normal) Range: 22.0-29.0 CREAT,SERUM 1.2 mg/dL (Normal) Range: 0.8-1.3 GAP 10 (Normal) Range: 5-15 GLU 152 mg/dL (Abnormal) Range: 70-110 Comments: Fasting Glucose result greater than or equal to 126 mg/dL suggests DIABETES MELLITUS per A.D.A. criteria. K 3.4 mmol/L (Abnormal) Range: 3.5-5.1 NA 139 mmol/L (Normal) Range: 136-145 :02 CBCD Comments: COMMENTS: BONEZZIPrecautions*: NOT APPLICABLE ANISO RARE (Normal) BAND 7 % (Abnormal) Range: 0-5 CELLS COUNTED 100 (Normal) EOS 1 % (Normal) Range: 0-5 HCT 38.3 % (Abnormal) Range: 40-54 HGB 13.2 g/dL (Abnormal) Range: 14.0-18.0 LYMPH 4 % (Abnormal) Range: 19-41 MCH 31.2 pg (Normal) Range: 27.0-32.0 MCHC 34.5 g/dL (Normal) Range: 32-36 MCV 90.2 fL (Normal) Range: 80-94 MONOCYTE 4 % (Normal) Range: 0-10 MPV 8.2 fL (Normal) Range: 6.5-12.0 NRBC,LH FLAGGED 0 % (Normal) Range: 0-5 PLT 81 K/mm3 (Abnormal) Range: 150-450 PLT EST MOD DEC (Normal) POLYCHROMASIA RARE (Normal) RBC 4.24 {M/mm3} (Abnormal) Range: 4.6-6.2 RDW 13.4 % (Normal) Range: 11.6-14.6 SEGS 84 % (Abnormal) Range: 47-70 WBC 9.4 K/mm3 (Normal) Range: 4.4-11.0 :02 TROPONIN-I < 0.04 ng/mL (Normal) Comments: COMMENTS: BONEZZIPrecautions*: NOT APPLICABLE Comments: TROPONIN-I EXPECTED VALUES < 0.50 NEGATIVE 0.50 - 1.49 INDETERMINANT > OR = 1.50 SUGGEST WI Plan of Care Name Dates Details Instructions Malignant neoplasm of bronchus and lung, unspecified : Follow up in 2 weeks Indication: Malignant neoplasm of bronchus and lung, unspecified Nonsmoker : Eprescribed prescriptions (G8553) Indication: Nonsmoker Diverticulitis, colon : Continue Current Prescription(s) Indication: Diverticulitis, colon Unspecified bacterial pneumonia : Reviewed Lab Indication: Unspecified bacterial pneumonia Unspecified bacterial pneumonia : Reviewed Diagnostic Tests Indication: Unspecified bacterial pneumonia Unspecified bacterial pneumonia : Reviewed Radiology Director Letter Indication: Unspecified bacterial pneumonia Hemoptysis : Follow up in 2 weeks- roughly Indication: Hemoptysis Annual Medicare Phyiscal WITHOUT abnormal findings (Renamed from Encounter for general adult medical examination without abnormal findings) : Follow up in 6 months Indication: Annual Medicare Phyiscal WITHOUT abnormal findings (Renamed from Encounter for general adult medical examination without abnormal findings) BMI 30.0-30.9,adult : Shingles (Herpes Zoster) *: zoster Indication: BMI 30.0-30.9,adult BMI 30.0-30.9,adult : Eprescribed prescriptions (G8553) Indication: BMI 30.0-30.9,adult Fatigue : *fatigue education Indication: Fatigue Impaired fasting glucose : Eprescribed prescriptions (G8553) Indication: Impaired fasting glucose Unspecified bacterial pneumonia : Eprescribed prescriptions (G8553) Indication: Unspecified bacterial pneumonia Hematuria : Flu (Influenza) *: flu Indication: Hematuria Hematuria : Eprescribed prescriptions (G8553) Indication: Hematuria Hypertension : Flu (Influenza) *: flu shot Indication: Hypertension Hypertension : Eprescribed prescriptions (G8553) Indication: Hypertension Hypercholesteremia : Eprescribed prescriptions (G8553) Indication: Hypercholesteremia Epigastric pain : Flatulence (Gas): bloating Indication: Epigastric pain Chronic headaches : Eprescribed prescriptions (G8553) Indication: Chronic headaches Bronchitis : *URI Treatment Indication: Bronchitis Bronchitis : *URI Symptoms Indication: Bronchitis Bronchitis : *Antibiotic Usage Education - Female Indication: Bronchitis Epigastric pain : Abdominal Pain: stomach pain Indication: Epigastric pain Epigastric pain : Eprescribed prescriptions (G8553) Indication: Epigastric pain Anxiety : Eprescribed prescriptions (G8553) Indication: Anxiety Poison ana : Poison Ana Education Indication: Poison ana Anxiety : Allergies: allergies Indication: Anxiety Anxiety : Anxiety: panic Indication: Anxiety Hypertension : Continue Current Prescription(s) Indication: Hypertension Coronary artery disease : Continue Current Prescription(s) Indication: Coronary artery disease Coronary artery disease : Reviewed Radiology Director Letter Indication: Coronary artery disease Coronary artery disease : Follow up in 6 months Indication: Coronary artery disease Diverticulosis of colon : Diverticulosis Indication: Diverticulosis of colon Hypertension : HTN/CAD Red Flags Indication: Hypertension Acute sinusitis : *URI Symptoms Indication: Acute sinusitis Acute sinusitis : *Antibiotic Usage Education - Male Indication: Acute sinusitis Upper respiratory infection : Cough: coughing Indication: Upper respiratory infection Acute sinusitis : *Antibiotic Usage Education - Male Indication: Acute sinusitis Thrombophlebitis : FOLLOW UP IN 1 WEEK [facility] Indication: Thrombophlebitis folliculitis : Antibiotic Usage Education - Male Indication: folliculitis Other specified viral infection, in conditions classified elsewhere and of unspecified site : IV Indication: Other specified viral infection, in conditions classified elsewhere and of unspecified site BPH : FOLLOW UP IN 1 YEAR Indication: BPH Actinic keratosis : Cryotherapy Indication: Actinic keratosis Planned Observations Sputum Culture (13358)Indication: Cough On: 59-Ufn-157633:24 Request VITAMIN D, 1, 25-DIHYDROXY (53358)Indication: Vitamin D deficiency On: 1-Itu-729006:16 Request PSA (PROSTATE SPECIFIC ANTIGEN) (V76.44)Indication: Enlarged prostate with lower urinary tract symptoms On: 2-Ule-822958:16 Request LIPID PANEL (96872)Indication: Hypercholesteremia On: 9-Lea-120595:15 Request METABOLIC PANEL, COMPREHENSIVE (87832)Indication: Hypertension On: 9-Dir-521230:15 Request CBC, PLATELETS & AUT DIFF (03670)Indication: Hypertension On: 8-Pqw-586096:15 Request C-REACT PROT HIGH SENS(hsCRP) (75427)Indication: CRP elevated On: 44-Kvk-074535:01 Request Folate (10390)Indication: Fatigue On: 58-Xcw-027670:55 Request Urinalysis, Office (91135)Indication: Hypertension On: 65-Zzo-897430:36 Request URINALYSIS, W/ MICRO (14030)Indication: Hypertension On: 27-Feb-20159:58 Request CBC (Auto) ([id number])Indication: Hypertension On: :58 Request Metabolic Panel, Basic (31205)Indication: Hypertension On: :58 Request PSA (PROSTATE SPECIFIC ANTIGEN) (V76.44)Indication: Screening for prostate cancer On: :21 Request Comments: do 07-08 URINALYSIS, W/ MICRO ([id number])Indication: Hypertension On: :17 Request TSH ([id number])Indication: Anxiety On: :18 Request URINALYSIS, W/ MICRO ([id number])Indication: Hypertension On: :18 Request METABOLIC PANEL, COMPREHENSIVE (73929)Indication: Hypertension On: :18 Request LIPID PANEL ([id number])Indication: Hypertension On: : Request CBC with auto diff ([id number])Indication: Hypertension On: :18 Request PSA (PROSTATE SPECIFIC ANTIGEN) (V76.44)Indication: Encounter for routine history and physical exam for male On: :27 Request CBC (Auto) ([id number])Indication: Hypertension On: :26 Request Comments: citrate tubes Metabolic Panel, Basic ([id number])Indication: Hypertension On: :26 Request Methymalonic Acid, Serum (93889)Indication: Thrombocytopenia On: 5-Mow-486795:49 Request Vitamin B-12 (cyanocobalamin) (30716)Indication: Thrombocytopenia On: 7-Rfo-811411:49 Request Sed Rate Erythrocyte (64870)Indication: Thrombocytopenia On: :49 Request FIBRINOGEN ([id number])Indication: Thrombocytopenia On: 5-Vgz-930080:49 Request HELICOBACTER PYLORI ANTIBODY ([id number])Indication: Thrombocytopenia On: 5-Oci-363033:49 Request PTT (Activated Partial Thromboplastin Time) ([id number])Indication: Thrombocytopenia On: :48 Request PT (Prothrobim Time) ([id number])Indication: Thrombocytopenia On: 2-Hce-859598:48 Request HEPATITIS C ANTIBODY (37603)Indication: Thrombocytopenia On: 3-Phz-353247:48 Request HEPATITIS B CORE ANTBD-IGG/IGM ([id number])Indication: Thrombocytopenia On: 9-Uoo-618540:48 Request HEPATITIS B SURFACE ANTIGEN (34044)Indication: Thrombocytopenia On: 4-Tnu-588496:48 Request HEPATITIS B SURFACE ANTIBODY ([id number])Indication: Thrombocytopenia On: :48 Request CBC W/AUTO DIFF WBC ([id number])Indication: Thrombocytopenia On: 2-Fkm-352544:41 Request Comments: citrate tube CBC WITH MANUAL DIFF (76697)Indication: Thrombocytopenia On: 39-Iqp-25994:42 Request Comments: DRAW IN CITRATE TUBE PLEASErecheck before next follow up in Feb 2014 Metabolic Panel, Basic ([id number])Indication: Hypertension On: 9-Eqz-238427:33 Request Comments: copy to [facility] HEPATIC FUNCTION PANEL ([id number])Indication: Hypertension On: :33 Request LIPID PANEL ([id number])Indication: Hypercholesteremia On: 3-Xdu-831555:32 Request URINALYSIS, W/ MICRO ([id number])Indication: Hypertension On: 4-Amo-960311:32 Request CBC (Auto) ([id number])Indication: Hypertension On: 7-Dzp-773139:32 Request PSA (PROSTATE SPECIFIC ANTIGEN) (V76.44)Indication: Encounter for routine history and physical exam for male On: 2-Lcv-113545:02 Request CBC (Auto) ([id number])Indication: Hypertension On: 08-Jul-2011 Request Metabolic Panel, Basic ([id number])Indication: Hypertension On: 08-Jul-2011 Request URINALYSIS, W/ MICRO ([id number])Indication: Hypertension On: 08-Jul-2011 Request URINALYSIS W/O MICRO ([id number])Indication: Essential hypertension, malignant On: 0-Ltn-143210:00 Request TSH ([id number])Indication: Essential hypertension, malignant On: 1-Bpx-739870:00 Request METABOLIC PANEL, COMPREHENSIVE ([id number])Indication: Essential hypertension, malignant On: 0-Lso-623947:00 Request CBC WITH MANUAL DIFF ([id number])Indication: Essential hypertension, malignant On: 5-Msc-406163:00 Request PSA (PROSTATE SPECIFIC ANTIGEN) (V76.44)Indication: BPH On: 9-Gea-689616:59 Request CBC (Auto) ([id number])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, unspecified On: 54-Quj-97335:51 Request PTT (Activated Partial Thromboplastin Time) ([id number])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, unspecified On: :50 Request Comments: drawn in office today PT (Prothrobim Time) ([id number])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, unspecified On: :50 Request Comments: drawn in office URINALYSIS ([id number])Indication: Hypertension On: :38 Request METABOLIC PANEL, BASIC ([id number])Indication: Hypertension On: :37 Request Planned Encounters Medical; 2 Week FU - On: 28-Dec-2017 13:00 [facility] Evonne DUTTON, Rosana Suazo DO Planned Procedures COMPUTED TOMOGRAPHY ANGIOGRAPHY OF On: 15-Dec-2017 Intent CHEST FOR PULMONARY EMBOLISM Comments: STAT ORDER PLEASE PHONE RESULTS TO GABY RO AT [phone] ([id number])By: Gaby Ro CNP CTA OF CHEST WITHOUT THEN WITH On: 15-Dec-2017 Intent CONTAST AND POST-PROCESSING ([id number])By: Gaby oR CNP COMPUTED TOMOGRAPHY OF CHEST FOR On: 15-Dec-2017 Intent PULMONARY EMBOLISM ([id number])By: Marjorie Comments: stat stat stat Gaby DOMINGUEZ Solu -Medrol Injection, 125 mg On: 14-Dec-2017 Intent (J2930)By: Gaby Ro CNP Spirometry ([id number])By: Marjorie DOMINGUEZ, On: 14-Dec-2017 Intent Gaby Torrez Comments: Moderate Airway obstruction CHEST XRAY, PA & LATERAL ([id number])By: On: 14-Dec-2017 Intent Gaby Ro CNP Aerosol Treatment ([id number])By: Marjorie On: 14-Dec-2017 Intent Gaby DOMINGUEZ Radiology - Chest- PA and LatBy: On: 31-Dec-2016 Intent Rosana Davis DO, DO, Comments: fu on pneumonia -- do towards end january Rosana Radiology - Chest- PA and LatBy: On: 04-Jul-2016 Intent Rosana Davis DO, DO, Kathleen Flu Vaccine (Quadrivalent) 19466Ij: On: 12-Nov-2015 Intent Visit, Nurse Comments: Lot #[id number]-[id number] dltd, IMDose prefilled syringegiven by:MORENA VillaltaNVIS and ABN signed US DOPPLER CAROTID BILATERAL On: 22-Aug-2015 Intent (58887)By: Wes Hernandez MD Comments: bilateral PFT - CompleteBy: Wes Hernandez MD On: 24-Jul-2015 Intent CAROTID DUPLEX EXAMINATION On: 24-Jul-2015 Intent ([id number])By: Wes Hernandez MD Radiology - Chest- PA and LatBy: On: 19-Mar-2015 Intent Chance DOTorie A Comments: stat PNEUM VAC ADLT/IMUMNOSPR, SBC/INTRM On: 23-Jan-2015 Intent ([id number])By: Parul Rice MD ADMINISTRATION OF PNEUMOCOCCAL On: 23-Jan-2015 Intent VACCINE (G0009)By: Parul Rice MD PNEUM VAC ADLT/IMUMNOSPR, SBC/INTRM On: 23-Jan-2015 Intent ([id number])By: Praul Rice MD Flu Vaccine (Quadrivalent) 80996Nv: On: 23-Jan-2015 Intent Parul Rice MD Comments: lot [id number]: 08/23/2015site/route L tarsha, IMamt 0.5mlVIS and ABN signed when applicableRUSSELL Duran ELECTROCARDIOGRAM, COMPLETE (ECG) On: 25-Jul-2014 Intent (69084)By: Parul Rice MD Prevnar 13 (76173)By: Dwayne GARCIA, On: 31-Jan-2014 Intent Parul Edwards Comments: [id number] arm, IMMegan Solu -Medrol Injection, 125 mg On: 31-Aug-2013 Intent (J2930)By: Gaby Ro CNP Comments: [id number], 2mlMegan Eprescribed prescriptions On: 25-Jul-2013 Intent (G8553)By: Parul Rice MD FLU VAC, SPLIT, >3 YEARS, INTRAMUSC On: 04-Nov-2012 Intent (33592)By: Parul Rice MD Comments: lot [id number] 2014site/route L tarsha, IMamt 0.5mlVIS and ABN signed when applicableChelsea, SCHEDULE CLERK ADMINISTRATION OF INFLUENZA VIRUS On: 04-Nov-2012 Intent VACCINE (G0008)By: Yesy Hagan Pulse Oximetry ([id number])By: Caleb On: 22-Oct-2012 Intent JOHANA Esophagram with a cookie swallow On: 10-Aug-2012 Intent using the tablet.By: Dwayne GARCIA, Comments: see Dr. araseli Edwards EKG ([id number])By: Rosana Davis DO On: 17-Mar-2012 Intent Rosana Davis DO Comments: nsr no acute cgh Eprescribed prescriptions On: 17-Mar-2012 Intent (G8553)By: Rosana Davis DO, DO, Kathleen FLU VAC, SPLIT, >3 YEARS, INTRAMUSC On: 14-Nov-2011 Intent (03652)By: Polly Sutton Comments: Lot:[id number]:prefilledRoute:IMSite:L DltdGiven By:CHARLA signed ADMINISTRATION OF INFLUENZA VIRUS On: 14-Nov-2011 Intent VACCINE (G0008)By: Polly Sutton FLU VAC, SPLIT, >3 YEARS, INTRAMUSC On: 18-Nov-2010 Intent ([id number])By: Wendy Johnson LPN Comments: Lot #[id number]-L arm IMDose prefilledgiven by:Wendy ADMINISTRATION OF INFLUENZA VIRUS On: 18-Nov-2010 Intent VACCINE (G0008)By: Wendy Johnson LPN ADMINISTRATION OF INFLUENZA VIRUS On: 27-Nov-2009 Intent VACCINE (G0008)By: Wendy Johnson LPN Comments: Lot #[id number]/11Site-L armDose0.5mlgiven by:ANDRAE Drew FLU VAC, SPLIT, >3 YEARS, INTRAMUSC On: 27-Nov-2009 Intent ([id number])By: Wendy Johnson LPN Doppler Ultrasound OtherBy: Ciesa On: 24-Jul-2009 Intent Gaby DOMINGUEZ Comments: call with wet lizett saunders, Left leg today FLU VAC, SPLIT, >3 YEARS, INTRAMUSC On: 23-Nov-2008 Intent ([id number])By: Juany Harrison RN ADMINISTRATION OF INFLUENZA VIRUS On: 23-Nov-2008 Intent VACCINE (G0008)By: Juany Harrison RN ADMINISTRATION OF PNEUMOCOCCAL On: 25-Jul-2008 Intent VACCINE (G0009)By: Torie Fletcher DO PNEUM VAC ADLT/IMUMNOSPR, SBC/INTRM On: 25-Jul-2008 Intent (22179)By: Torie Fletcher DO Comments: Lot #: [id number] date: mount given: 0.5 mlRoute: IMSite given: Left deltoidGiven by: Prateek Chung LPN PET ScanBy: Torie Fletcher DO On: 09-Jul-[address] - ChestBy: Torie Fletcher DO On: 23-Jun-2007 Intent Ultrasound - RenalBy: Chance DUTTON, On: 23-Jun-2007 Intent Torie Chandra Bio Z ([id number])By: Chayo Lorenz On: 23-Jun-2007 Intent Spirometry (80326)By: Dwayne GARCIA, On: 04-Aug-2006 Intent Parul Edwards Pulse Oximetry (43468)By: Dwayne On: 04-Aug-[address] - Chest (IV Contrast Needed)By: On: 04-Aug-2006 Intent Parul Rice MD Comments: PLAN NEEDLE GUIDED BIOPSY OF NODULE/MASS BY DR HICKS Phenjaean Injection, up to 50 mg On: 15-May-2006 Intent (J2550)By: Parul Rice MD DESTROY BENIGN/PREMALIG LESION, 1ST On: 13-Nov-2005 Intent ([id number])By: Parul Rice MD Planned Medications INJECTION, METHYLPREDNISOLONE SODIUM SUCCINATE, UP TO 125 MG Ordered: 31-Aug-2013 Pending Gaby Ro CNP INJECTION, METHYLPREDNISOLONE SODIUM SUCCINATE, UP TO 125 MG Ordered: 14-Dec-2017 Pending Gaby Ro CNP Instructions Name Dates Details Nonsmoker : How to access health information online Indication: Nonsmoker Nonsmoker : How to access health information online - Detail Indication: Nonsmoker Nonsmoker : Patient Instructions Indication: Nonsmoker Nonsmoker : Patient Instructions Indication: Nonsmoker Nonsmoker : How to access health information online Indication: Nonsmoker Nonsmoker : How to access health information online - Detail Indication: Nonsmoker Nonsmoker : How to access health information online Indication: Nonsmoker Nonsmoker : How to access health information online - Detail Indication: Nonsmoker Nonsmoker : Patient Instructions Indication: Nonsmoker BMI 30.0-30.9,adult : How to access health information online Indication: BMI 30.0-30.9,adult BMI 30.0-30.9,adult : How to access health information online - Detail Indication: BMI 30.0-30.9,adult BMI 30.0-30.9,adult : Patient Instructions Indication: BMI 30.0-30.9,adult Impaired fasting glucose : How to access health information online Indication: Impaired fasting glucose Impaired fasting glucose : How to access health information online - Detail Indication: Impaired fasting glucose Impaired fasting glucose : Patient Instructions Indication: Impaired fasting glucose Unspecified bacterial pneumonia : How to access health information online Indication: Unspecified bacterial pneumonia Unspecified bacterial pneumonia : How to access health information online - Detail Indication: Unspecified bacterial pneumonia Unspecified bacterial pneumonia : Patient Instructions Indication: Unspecified bacterial pneumonia Hematuria : How to access health information online Indication: Hematuria Hematuria : How to access health information online - Detail Indication: Hematuria Hematuria : Patient Instructions Indication: Hematuria Hypertension : How to access health information online Indication: Hypertension Hypertension : How to access health information online - Detail Indication: Hypertension Hypertension : Patient Instructions Indication: Hypertension Hypercholesteremia : How to access health information online - Detail Indication: Hypercholesteremia Hypercholesteremia : Patient Instructions Indication: Hypercholesteremia Chronic headaches : How to access health information online Indication: Chronic headaches Chronic headaches : How to access health information online - Detail Indication: Chronic headaches Chronic headaches : Patient Instructions Indication: Chronic headaches Epigastric pain : How to access health information online Indication: Epigastric pain Epigastric pain : How to access health information online - Detail Indication: Epigastric pain Epigastric pain : Patient Instructions Indication: Epigastric pain Anxiety : How to access health information online Indication: Anxiety Anxiety : How to access health information online - Detail Indication: Anxiety Anxiety : Patient Instructions Indication: Anxiety Anxiety : Patient Instructions Indication: Anxiety Anxiety : Patient Instructions Indication: Anxiety Coronary artery disease : Patient Instructions Indication: Coronary artery disease Upper respiratory infection : Patient Instructions Indication: Upper respiratory infection Encounters Annotation/Addendum On: 15-Dec-2017 13:36 Encounter Diagnosis: Elevated d-dimer End: 15-Dec-2017 13:49 [facility] Annotation/Addendum On: 15-Dec-2017 13:18 Encounter Diagnosis: Elevated d-dimer End: 15-Dec-2017 13:21 [facility] Annotation/Addendum On: 15-Dec-2017 12:54 Encounter Diagnosis: Elevated d-dimer End: 15-Dec-2017 13:01 [facility] Office Visit On: 14-Dec-2017 13:43 Encounter Reason: Cold Symptoms - Symptoms include dry cough and productive cough. Onset was 5 week(s) ago. Note for Cold symptoms: feeling of phlegm in chestHas taken coricidan x 3 with cough and phlegm. Always SOB fr End: 14-Dec-2017 14:50 om COPDHas history of lung cancer sees Dr. Lam at [facility] , sees once a year. Saw last in Oct [address] and lung test, was given an inhaler maintenance Anoro, but used only 3-4 days. He was supposed t o take it every day but has not taken it since he wondered if it made him have a cough. Right now not taking anything for COPd, used proair today., [ADDITIONAL REASON] Panic Attacks - Note for Panic attacks: Feels like panic attack. Has to have d oor open gets 3-4 times. Feels anxious and gets panic like feeling. , [ADDITIONAL REASON] Shortness of Breath - Note for Shortness of breath: Short of breath Encounter Diagnosis: Nonsmoker, BMI 30.0-30.9,adult, Shortness of breath, Cough, Obstructive lung disease, Malignant neoplasm of bronchus and lung, unspecified (162.9) [facility] Annotation/Addendum On: 11-Sep-2017 14:58 Encounter Diagnosis: Hypertension End: 11-Sep-2017 15:01 [facility] Phone Encounter On: 31-Dec-2016 14:31 [facility] End: 31-Dec-2016 14:36 Office Visit On: 31-Dec-2016 13:20 Encounter Reason: Transition into care - The patient is transitioning into care from a hospital ([facility] for pneumonia and a sbo) and a summary of care was reviewed.Encounter Diagnosis: BMI 29.0-29.9,adult, Nonsmoker, Unspecified bacterial pneumonia, End: 31-Dec-2016 14:23 Diverticulitis, colon, Elevated lactic acid level, Hypotension, chronic [facility] Prescription Refill On: 15-Dec-2016 14:03 Encounter Diagnosis: Obstructive lung disease End: 15-Dec-2016 14:33 [facility] Office Visit On: 04-Jul-2016 14:19 Encounter Reason: Hemoptysis - No changes in management were made at the last visit. Symptoms include hemoptysis and shortness of breath, while symptoms do not include cough or wheezing. The patient describes the sputum End: 04-Jul-2016 15:02 as bright red. Onset was sudden 3 day(s) ago. There is no known event that preceded symptom onset. The patient describes this as mild. Associated symptoms include sore throat. The patient is not currently being treated for this problem. Encounter Diagnosis: BMI 31.0-31.9,adult, Nonsmoker, Hemoptysis, History of tobacco use, Bronchitis, History of lung cancer, Obstructive lung disease [facility] Office Visit On: 12-Nov-2015 11:46 Encounter Reason: Injections - The medication the patient is here to receive is other (flu shot).Encounter Diagnosis: Need for prophylactic vaccination and inoculation against influenza (Renamed from Need for immunization against influenza) End: 12-Nov-2015 12:45 [facility] Phone Encounter On: 22-Aug-2015 15:21 Encounter Diagnosis: Carotid stenosis End: 22-Aug-2015 15:24 [facility] Office Visit On: 08-Aug-2015 9:27 Encounter Reason: Annual Medicare Exam - The patient had reviewed and updated the family history, medication/s, past medical history and social history. Yes the patient did have a mini mental status exam done today. The End: 08-Aug-2015 15:20 activities of daily living the patient needs help with are none. The patient has driven in past 6 months, but the patient has not had fecal incontinence, had urinary incontinence, missed or ran out of m edications to soon, fallen in the past 6 months, gotten lost, has a medalert necklace or bracelet, put area rugs through house or put handrails in bathroom. The patient has completed the following preve ntative measures: colonoscopy (I have 4 more years, I checked on that -- I see Dr West). The patient does have durable power of energy attorney and living will. The patient has noticed lack of energy. Other providers contributing to the patient's care are digital manager ([facility]).Encounter Diagnosis: BMI 30.0-30.9,adult, Nonsmoker, Vision abnormalities, CRP elevated, Annual Medicare Phyiscal WITHOUT abnormal findings (Renamed from Encounter for general adult medical examination without abnormal findings), Fatigue, Obstructive lung disease, Hypertension, Impaired fasting glucose, Depression, Hypercholesteremia, Coronary artery disease, Esophagitis, Colon polyp (211.3), Constipation, chronic, Anxiety (300.00), Chronic headaches, Diverticulosis of colon, Enlarged prostate with lower urinary tract symptoms, HX, PERSONAL, MALIGNANCY, RESPIRATORY NEC (V10.29), Vitamin D deficiency, Dyspnea (786.09) [facility] Office Visit On: 24-Jul-2015 10:09 Encounter Reason: Follow up for chronic medical issues - The patient feels well with minor complaints (fatigue - low energy and get tired too quick.), has good energy level and is sleeping well. Patient has been complian End: 24-Jul-2015 15:15 t with instructions. Current medication use: no side effects. Patient sleeps 7 hours per night. Nutrition: balanced diet and no supplemental vitamins & iron. The medical issues the patient is follow ing up for include All identified problems below, depression, high cholesterol and other. blood pressure range : (140's/60's-80's).Encounter Diagnosis: Impaired fasting glucose, Hypertension, Depression, BMI 30.0-30.9,adult, Nonsmoker, Dyspnea (786.09), Hypercholesteremia, Coronary artery disease, Esophagitis, Colon polyp (211.3), Bloating, Constipation, chronic, Anxiety (300.00), Chronic headaches, Diverticulosis of colon, Enlarged prostate with lower urinary tract symptoms, Carotid stenosis, HX, PERSONAL, MALIGNANCY, RESPIRATORY NEC (V10.29), Hematuria, Obstructive lung disease, Fatigue [facility] Refill Request On: 24-Apr-2015 9:02 Encounter Diagnosis: Coronary artery disease End: 24-Apr-2015 9:04 [facility] Office Visit On: 19-Mar-2015 16:10 Encounter Reason: Cough - The onset of the cough has been sudden (x 6weeks). The cough is characterized as productive of mucopurulent sputum. The amount of sputum produced is scanty. The cough occurs all the time. The s End: 19-Mar-2015 22:08 ymptoms have been associated with hoarseness, while the symptoms have not been associated with dyspnea, fever, headache, runny nose or sore throat. the color of the sputum is clear and yellowish (and br own). Note for Cough : Was sen at the Urgent Care last week and is on amoxicillan and prednisone but doesnt feel their helping.- he was coughing up alot of sputum that better but alot of congestion in nose and chest- no fever-- was dx with bronchitis- doesnt smoke hasnt for 23 yearsEncounter Diagnosis: Hypertension, Unspecified bacterial pneumonia [facility] Office Visit On: 27-Feb-2015 9:30 Encounter Reason: Follow up acute care visit - The patient feeling better since last seen and improving. Patient has been compliant with instructions. Current medication use: no side effects, compliant with dosing regime End: 27-Feb-2015 10:03 n and considered effective by patient.Encounter Diagnosis: Hematuria, History of bladder stone, Impaired fasting glucose, Hypertension [facility] Nurse Visit On: 30-Jan-2015 9:00 Encounter Reason: Nurse procedure visit - Reason for visit: other (u/a recheck and cx ).Encounter Diagnosis: Hematuria End: 30-Jan-2015 13:12 [facility] Phone Encounter On: 23-Jan-2015 8:35 Encounter Diagnosis: PROPHYLACTIC VACCINATION AGAINST STREPTOCOCCUS PNEUMONIAE (V03.82) End: 23-Jan-2015 10:58 [facility] Office Visit On: 23-Jan-2015 8:00 Encounter Reason: Follow up for chronic medical issues - The patient feels well with minor complaints (issues urinating), has good energy level and is sleeping well. Patient has been compliant with instructions. Current End: 23-Jan-2015 8:35 medication use: no side effects and compliant with dosing regimen. Patient sleeps 8 hours per night. Nutrition: balanced diet and no supplemental vitamins & iron. The medical issues the patient is f ollowing up for include All identified problems below, depression, high cholesterol and other. blood pressure range : (140's/60's-80's) and weight :.Encounter Diagnosis: Hypertension, Depression, Hypercholesteremia, Need for prophylactic vaccination and inoculation against influenza (Renamed from Need for immunization against influenza), Pneumococcal vaccination given, Colon polyp (211.3), Dyspnea (786.09), Bloating, Constipation, chronic, Anxiety (300.00), Itching, Chronic headaches, Coronary artery disease, Diverticulosis of colon, Enlarged prostate with lower urinary tract symptoms, Carotid stenosis, HX, PERSONAL, MALIGNANCY, RESPIRATORY NEC (V10.29), Esophagitis, GERD (gastroesophageal reflux disease), Screening for prostate cancer, Dysuria, Hematuria [facility] Office Visit On: 25-Jul-2014 8:15 Encounter Reason: Follow up for chronic medical issues - The patient feels well with minor complaints (difficulty swallowing sometimes and a little sob at times, I think it is age), has good energy level and is sleeping End: 25-Jul-2014 18:43 well. Patient has been compliant with instructions. Current medication use: no side effects and compliant with dosing regimen. Patient sleeps 8 hours per night. Nutrition: balanced diet and no supplemen johnathon vitamins & iron. The medical issues the patient is following up for include All identified problems below, depression, high cholesterol and other. blood pressure range : (140's/60's-80's) and weight :., [ADDITIONAL REASON] Annual Medicare Exam - The patient had reviewed and updated the family history, medication/s, past medical history and social history. Yes the patient did have a mini mental status exam done today. The activities of daily living the patient needs help with are none. The patient has driven in past 6 months, but the patient has not had fecal incontinence, had urinary incontinence, m issed or ran out of medications to soon, fallen in the past 6 months, gotten lost, has a medalert necklace or bracelet, put area rugs through house or put handrails in bathroom. The patient has complete d the following preventative measures: colonoscopy (1/2 years ago). The patient does have durable power of energy attorney and living will. The patient has noticed nothing from the geriatic depression scale. O ther providers contributing to the patient's care are digital manager. Encounter Diagnosis: Hypertension 401.1 (Renamed from Hypertension (401.0)), Hypercholesteremia (272.0), Anxiety (300.00), Dyspnea (786.09), Coronary Artery Disease (414.00), Itching, BPH with Urin. Obst (600.01), HX, PERSONAL, MALIGNANCY, RESPIRATORY NEC (V10.29), Diverticulosis (562.10), Chronic headaches, Epigastric pain, Constipation, chronic, Depression (311.), Colon polyp (211.3), GERD (530.81), Carotid Stenosis (433.10), Bloating, Well Male Exam (V70.0), Esophagitis [facility] Office Visit On: 11-Apr-2014 7:56 Encounter Reason: Follow up tests - Date: (Feb 2014).Encounter Diagnosis: Epigastric pain, GERD (530.81), Chronic headaches, Constipation, chronic, Hypertension 401.1 (Renamed from Hypertension (401.0)), Well Male Exam (V70.0) End: 11-Apr-2014 9:39 [facility] Office Visit On: 28-Feb-2014 9:36 Encounter Reason: Follow up acute care visit - The patient feeling better since last seen and improving. Patient has been compliant with instructions. Current medication use: no side effects, compliant with dosing regime End: 28-Feb-2014 10:51 n and not considered effective by patient.Encounter Diagnosis: Epigastric pain, Thrombocytopenia, GERD (530.81), Chronic headaches, Bronchitis (490) [facility] Lab Order On: 02-Feb-2014 8:41 Encounter Diagnosis: Thrombocytopenia End: 02-Feb-2014 8:42 [facility] Office Visit On: 31-Jan-2014 9:45 Encounter Reason: Follow up for chronic medical issues - The patient feels well with minor complaints (upset stomach easily), has good energy level and is sleeping well. Patient has been compliant with instructions. Curr End: 31-Jan-2014 10:48 ent medication use: no side effects and compliant with dosing regimen. Patient sleeps 8 hours per night. Nutrition: balanced diet and no supplemental vitamins & iron. The medical issues the patient is following up for include All identified problems below, depression, high cholesterol and other. blood pressure range : (140's/60's-80's) and weight :.Encounter Diagnosis: Hypercholesteremia (272.0), Hypertension 401.1 (Renamed from Hypertension (401.0)), BPH with Urin. Obst (600.01), Anxiety (300.00), Need for vaccination against Streptococcus pneumoniae, GERD (530.81), HX, PERSONAL, MALIGNANCY, RESPIRATORY NEC (V10.29), Coronary Artery Disease (414.00), Dyspnea (786.09), Diverticulosis (562.10), Itching, Colon polyp (211.3), Depression (311.), Epigastric pain [facility] Office Visit On: 31-Aug-2013 11:08 Encounter Reason: Skin Problems - The onset of the skin problems has been sudden and they have been occurring in a persistent pattern for 5 days. The course has been increasing. The problem is characterized as a rash and End: 31-Aug-2013 13:27 itching. Lesions are described as raised above the skin. The spots were first seen on the upper extremity. It spread to the upper extremity and the lower extremity. There has been associated itching, while there has been no pain. Encounter Diagnosis: Poison ana (692.6), Itching [facility] Office Visit On: 25-Jul-2013 14:50 Encounter Reason: Follow up for chronic medical issues - The patient feels well with minor complaints (possible allergies? sneezing, coughing a lot. I would like to increase my sertraline as well.), has good energy level End: 25-Jul-2013 16:06 (depends on what doing, if exerting self then it decreases) and is sleeping well. Patient has been compliant with instructions. Current medication use: no side effects and compliant with dosing regimen . Patient sleeps 8 hours per night. Nutrition: balanced diet and no supplemental vitamins & iron. The medical issues the patient is following up for include All identified problems below, depression , high cholesterol and other. blood pressure range : (140's/60's-80's) and weight :.Encounter Diagnosis: Anxiety (300.00), Coronary Artery Disease (414.00), Depression (311.), Hypercholesteremia (272.0), Dysphagia (787.20), Colon polyp (211.3), BPH with Urin. Obst (600.01), Gastrointestinal bleeding (578.9), GERD (530.81), Dyspnea (786.09), Pleural Effusion (511.9), Hypertension 401.1 (Renamed from Hypertension (401.0)), Diverticulosis (562.10), HX, PERSONAL, MALIGNANCY, RESPIRATORY NEC (V10.29), Well Male Exam (V70.0) [facility] Office Visit On: 04-Nov-2012 11:28 Encounter Reason: Injections - The medication the patient is here to receive is other (influenza).Encounter Diagnosis: NEED FOR PROPHYLACTIC VACCINATION AND INOCULATION AGAINST INFLUENZA (V04.81) End: 04-Nov-2012 14:18 [facility] Office Visit On: 22-Oct-2012 9:29 Encounter Reason: Follow up hospital - Reason for ER visit: note: (shortness of breath ). The patient feels well with minor complaints and has decreased energy level. Patient has been compliant with instructions. Current End: 22-Oct-2012 10:11 medication use: no side effects, compliant with dosing regimen and considered effective by patient. Patient sleeps 7 hours per night. Impact of disease: emotional impact-mild. Nutrition: balanced diet and supplemental vitamins. Hospital procedures performed were heart catherization.Encounter Diagnosis: Dyspnea (786.09) [facility] Office Visit On: 10-Aug-2012 9:20 Encounter Diagnosis: Anxiety (300.00), Dysphagia (787.20), GERD (530.81), Colon polyp (211.3), Coronary Artery Disease (414.00), Hypercholesteremia (272.0) End: 10-Aug-2012 9:56 [facility] Office Visit On: 17-Mar-2012 11:30 Encounter Reason: Follow up for chronic medical issues - The patient feels well with minor complaints, has good energy level and is sleeping well. Patient has been compliant with instructions. Current medication use: no End: 17-Mar-2012 16:50 side effects and compliant with dosing regimen. Patient sleeps 8 hours per night. Nutrition: balanced diet and no supplemental vitamins & iron. The medical issues the patient is following up for inc lude All identified problems below, depression, high cholesterol and other. blood pressure range : and weight :.Encounter Diagnosis: Depression (311.), Coronary Artery Disease (414.00), Diverticulosis (562.10), Hypertension 401.1 (Renamed from Hypertension (401.0)), SCREENING FOR CANCER OF THE PROSTATE (V76.44), Dysphagia (787.20), Lung nodule (518.89) [facility] Office Visit On: 30-Jan-2012 10:18 Encounter Reason: Upper Respiratory Infection (URI) - The last clinic visit was 1 week(s) ago. No changes in management were made at the last visit. Symptoms include nasal congestion, runny nose, hoarseness, productive c End: 30-Jan-2012 11:03 ough (dark greenish yellow stuff) and wheezing, while symptoms do not include sneezing, fever or chills. Onset was sudden. The patient describes this as moderate in severity.Encounter Diagnosis: Upper respiratory infection (465.9), Acute sinusitis (461.9), Bronchitis (490) [facility] Office Visit On: 14-Nov-2011 11:35 Encounter Reason: Injections - The medication the patient is here to receive is other (flu shot).Encounter Diagnosis: Need for prophylactic vaccination and inoculation against influenza (V04.81) End: 14-Nov-2011 14:32 [facility] Office Visit On: 18-Nov-2010 10:17 Encounter Reason: Injections - The medication the patient is here to receive is other.Encounter Diagnosis: Need for prophylactic vaccination and inoculation against influenza (V04.81) End: 18-Nov-2010 10:29 [facility] Phone Encounter On: 16-Aug-2010 6:42 Encounter Diagnosis: Coronary Artery Disease (414.00) End: 16-Aug-2010 6:43 [facility] Office Visit On: 13-Jun-2010 9:10 Encounter Reason: Follow up ER - Reason for hospitalization note: (diverticulitus ). Patient has been compliant with instructions. Current medication use: no side effects and compliant with dosing regimen. The patient do End: 13-Jun-2010 9:48 es not feel well and has decreased energy level. Patient sleeps 7 hours per night. Impact of disease: emotional impact-mild. Nutrition: balanced diet and supplemental vitamins.Encounter Diagnosis: Pleural Effusion (511.9), Nephrolithiasis (274.11), Diverticulitis (562.11), Diverticulosis (562.10), Gastrointestinal bleeding (578.9) [facility] Office Visit On: 24-May-2010 12:07 Encounter Reason: Sore throat - The onset of the sore throat has been sudden and has been occurring in a persistent pattern for 3 days. The course has been worsening. The symptoms have been associated with change in voic End: 24-May-2010 12:33 e, cough, difficulty in swallowing, post-nasal drip and runny nose, while the symptoms have not been associated with chills, ear pain, fever, non-purulent sputum, purulent sputum, recent contact with a person with sore throat or sinus pain. Note for Sore throat: he checks bp at home- 130 /70-80Encounter Diagnosis: Acute sinusitis (461.9) [facility] Office Visit On: 15-Apr-2010 9:31 Encounter Reason: Follow up for chronic medical issues - The patient feels well with minor complaints and has good energy level. Patient has been compliant with instructions. Current medication use: no side effects, comp End: 15-Apr-2010 9:57 liant with dosing regimen and considered effective by patient. Patient sleeps 7 hours per night. Impact of disease: emotional impact-mild. Nutrition: balanced diet and supplemental vitamins. The medical issues the patient is following up for include cardiac issues, depression (anxiety ), high cholesterol and other (hx. lung cancer, BPH ).Encounter Diagnosis: HX, PERSONAL, MALIGNANCY, RESPIRATORY NEC (V10.29), tonsillectomy, Colon polyp (211.3), Lung nodule (518.89), hernia repair right, [id number], Actinic keratosis (702.0), hemmorhiodectomy, BPH, Hypertension 401.1 (Renamed from Hypertension (401.0)), Depression (311.), Coronary Artery Disease (414.00), BPH with Urin. 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 Patient has been compliant with instructions. Current medication use: no elías End: 05-Nov-2009 9:46 e effects ,compliant with dosing regimen and considered effective by patient. Patient sleeps 8 hours per night. Impact of disease: emotional impact-mild. Nutrition: balanced diet and supplemental vitami ns. The medical issues the patient is following up for include cardiac issues ,depression ,gastric reflux ,high blood pressure ,high cholesterol and other (BPH). 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 Obst (600.01), Nephrolithiasis (274.11) [facility] Office Visit On: 31-Jul-2009 11:09 Encounter Reason: Follow up acute care visit - The patient feels the same. Patient has been non-compliant with instructions. Current medication use: experiencing side effects ,compliant with dosing regimen and considered End: 31-Jul-2009 11:37 effective by patient. Patient sleeps 7 hours per night. The medical issues the patient is following up for include All identified problems below and other (thrombophlebitis). Encounter Diagnosis: Thrombophlebitis NOS (451.9) [facility] Office Visit On: 24-Jul-2009 8:37 Encounter Reason: Lumps - The onset of the lumps has been sudden and has been occurring in a persistent pattern for 1 weeks. The course has been constant. The lumps are described as moderate. Encounter Diagnosis: Thrombophlebitis NOS (451.9) End: 24-Jul-2009 9:06 [facility] Nurse Visit On: 23-Nov-2008 10:07 Encounter Reason: Injections - The medication the patient is here to receive is other (Influenza Vaccine). Encounter Diagnosis: Need for prophylactic vaccination and inoculation against influenza (V04.81) End: 23-Nov-2008 10:09 [facility] Office Visit On: 25-Jul-2008 11:27 Encounter Reason: Follow up for chronic medical issues - The patient feels well with minor complaints (dry cough) ,has good energy level and is sleeping well. Patient has been non-compliant with instructions. Current med End: 25-Jul-2008 22:27 ication use: no side effects and compliant with dosing regimen. Patient sleeps 8 hours per night. Nutrition: balanced diet ,supplemental vitamins and low salt diet. The medical issues the patient is fol lowing up for include All identified problems below ,depression ,gastric reflux ,high blood pressure ,high cholesterol and other (bph, neoplasm of lung/lung nodule, cad). blood pressure range : (130's/7 0's) and weight :. Note for Follow up for chronic medical issues: he had lobectomy on the left- not smoking and is keeping close followup with doctors at [facility]- on this-- hedidnt have to danielle ve chemo or radiation- usually his bp at home is good rarely gets these kind of numbers and checks weekly- no gerd weekly- thinks the omeprazole is ok-- - mood has been good- his ticker has been good an d following every 6 mos-- - he did chol with him and has been good- he didnt get colonsocopy so will send back to [facility] to do, [ADDITIONAL REASON] Cough - The onset of the cough has been sudden (yesterday). The cough is charact erized as dry. The cough occurs all the time. The symptoms are not aggravated by supine posture or meals. There has been no associated fever ,headache ,hoarseness ,runny nose ,sore throat or wheezing. 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 Date: (07/26/07). Encounter Diagnosis: Lung nodule (518.89) End: 02-Aug-2007 8:09 [facility] Office Visit On: 09-Jul-2007 10:16 Encounter Reason: Follow up, Diagnostic Procedure Results - Diagnostic tests include CT scan (chest). Date: (06/25/07). Note for Follow up, Diagnostic Procedure Results: no chronic cough- some wheeze at night--- once in a while-- no sob, End: 11-Jul-2007 19:49 [ADDITIONAL REASON] Rash - The onset of the rash has been sudden and has been occurring in a persistent pattern for 2 weeks. The course has been increasing. The rash is characterized as red ,pustular a nd flat. The rash was first seen on the upper extremity (right arm). It spread to the upper extremity (chest ). There has been no associated chills ,fatigue ,fever ,itching ,loss of sensation or pain. N ote for Rash: has little pus follicles on right arm and on right chest-- Encounter Diagnosis: folliculitis, Lung nodule (518.89) [facility] Office Visit On: 23-Jun-2007 8:40 Encounter Reason: Follow up for chronic medical issues - The patient feels well with no complaints ,has good energy level and is sleeping well. Patient has been compliant with instructions. Current medication use: no elías End: 23-Jun-2007 9:25 e effects and compliant with dosing regimen. Nutrition: balanced diet ,supplemental vitamins and low salt diet. The medical issues the patient is following up for include All identified problems below , depression ,gastric reflux ,high blood pressure and other (cad, bph). blood pressure range : (140's/80's) and weight :. 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 The course has been constant. The rash is characterized as red ,weeping and raised above the skin End: 21-Aug-2006 8:52 . The rash was first seen on the upper extremity. It spread to the entire body and the genital area. There has been associated itching, while there has been no alopecia ,anorexia ,chills ,fatigue ,fever ,kidney disease ,liver disease ,loss of sensation ,lymphadenopathy ,malaise ,mucous membrane lesions ,nail changes ,pain or weight loss. Encounter Diagnosis: Poison ana (692.6) [facility] Office Visit On: 19-Aug-2006 13:30 Encounter Diagnosis: Bacterial pneumonia, unspecified (482.9), Traumatic pneumothorax with open wound into thorax (860.1) End: 19-Aug-2006 13:43 [facility] Office Visit On: 04-Aug-2006 9:25 Encounter Reason: Follow up tests - Diagnostic tests include other (referral from Dr. Bravo states needs cat scan ). Follow up visit with no current symptoms. Past medical history includes cardiovascular disease ,emoti End: 04-Aug-2006 9:57 onal problems ,hypertension and other (BPH). 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 The course has been increasing. The patient has a temperature of up to 102 F. The symptoms have been End: 15-May-2006 15:59 associated with abdominal pain (diffuse over abd. mild) ,headache (mild) ,myalgia (extreme) ,nausea and sweating, while the symptoms have not been associated with diarrhea ,neck stiffness ,runny nose o r sore throat. Note for Fever: dry throat not eat since yesterdayEncounter Diagnosis: Viral infection, unspecified (079.99) [facility] Office Visit On: 13-Nov-2005 9:11 Encounter Reason: Follow up Meds - The patient feels well with no complaints. Patient has been compliant with instructions. Current medication use: no side effects (would like to switch Zoloft to generic(sertraline)). Pa End: 13-Nov-2005 9:43 tient sleeps 8 hours per night. Impact of disease: no overall impact. Nutrition: balanced diet. 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
--- OUTSIDE RECORDS SUMMARY | 2018-05-13 10:02 | XMS RPT_ITS | Continuity of Care Document ---
:1940 Author Organization [facility] Address [address] [place] [address] Phone Care Team Providers Name Role Phone Rosana Davis DO Unavailable [facility] Unavailable Gato Dickinson MD Unavailable RUSSELL Rosales Unavailable Unavailable Shannon Mendez Unavailable Unavailable Yesy Hagan Unavailable Unavailable Unavailable Unavailable Problems Name Dates Details Abnormal lung sounds (R09.89, 786.7) Status: Active Annual Medicare Phyiscal WITHOUT abnormal findings (Renamed [...] diet and exercise.Patient has durable power of assistant attorney general and living will. Status: Active Anxiety (F41.9, 300.00) Comments: doing well on zoloft. use 75 mg working great. Status: Active Bloating (R14.0, 787.3) Comments: still on PPI. talk abut probiotics. Status: Active BMI 29.0-29.9,adult (Z68.29, V85.25) Status: Active BMI 30.0-30.9,adult (Z68.30, V85.30) Status: Active BMI 31.0-31.9,adult (Z68.31, V85.31) Status: Active Bronchitis (J40, 490) Status: Active Carotid stenosis (I65.29, 433.10) Comments: 3-15 mild moderate. will recheck - bilateral Status: Active Chronic headaches (R51, 784.0) Comments: had on and off for years. was on chronic IBU when stopped had bad headaches daily and now less. will mo nitor no other neuro signs and symptomstylenol /ibuprofen helps Status: Active Colon polyp (K63.5, 211.3) Comments: 01-02 scopePolrigoberto dickinson Status: Active Constipation, chronic (K59.09, 564.00) Comments: once a day but marbly. use stool softner. at times. told take everyday and assure not a stimulant. if does nto work try linzess. Status: Active Coronary artery disease (I25.10, 414.00) Comments: stableCABG X6 in 2003Ofori every 6 monthlast viit 12/15No CP, palpitations, Status: Active Cough (R05, 786.2) Status: Active CRP elevated (R79.82, 790.95) Comments: repeat 6 weeksCRP: 12.2 Status: Active Depression (F32.9, 311) Comments: stable on zoloft 75 mgsince 2013, more for anxietyNo SI/HI Status: Active Diverticulitis, colon (K57.32, 562.11) Status: Active Diverticulosis of colon (K57.30, 562.10) Status: Active Dyspnea (R06.00, 786.09) Comments: Spirometry:Moderate obstructive AW disease.See [facility] Dr Doty for lung cancer s/p surgery (october/2015)PFTSOB when walking through the yard, sadie CP, palpittaionsALbuterol INH PRN, hasnt used in [...] stone (Z87.448, V13.09) Comments: last passed stone -15. Status: Active History of lung cancer (Z85.118, [...] month, next appt in [place] in [facility], started HCTD 03/10, stableStable at home:125/60, 21845/60, 120/65 Status: Active Impaired fasting glucose (R73.01, [...] Active Obstructive lung disease (J44.9, 496) Comments: smoked for 30 years, 1-2 ppd, quit 23 yrs agoNo cough, phlegm white more in winterNo wheezeHAs allergiesHas rescue inhalor, [facility] and gets Inhalors from [...] Wes Hernandez MD Start : 24-Jul-2015 Active Losartan Potassium 50 MG Oral Tablet [...] 10 MG Oral Tablet 3 (three) Tablet Tablet pills for 3 days 2 pills for 3 days then 1 pill for 3 days for 0 days Quantity: 18 {Tablet} Refills: 0 Ordered:14-Dec-2017 Carmela Rosales LPN Start : 14-Dec-2017 Active Comments:with food TOPROL [...] days Quantity: 135 {Tablet} Refills: 3 Ordered:04-Nov-2017 Kishor Davis DO, DO, Kathleen Start : 04-Nov-2017 Active Zoloft 50 MG Oral Tablet 1 1/2-2 Tablet daily for 90 days Quantity: 134 {Tablet} Refills: 3 Ordered:04-Nov-2017 Kishor Davis DO, DO, Kathleen Start : 04-Nov-2017 Active [...] Start : 24-Jul-2015 End : 31-Dec-2016 Inactive Comments:per Dr Peres ISOSORBIDE MONONITRATE CR, 30MG (Oral Tablet Extended Release 24 Hour) 1 qd for 0 days Refills: 0 Ordered:15-Apr-2010 JOHANA Ellis End : 15-Apr-2010 Inactive Levaquin 500 MG Oral Tablet 1 (one) Tablet daily for 0 days Quantity: 10 {Tablet} Refills: 0 Ordered:28-Dec-2017 Carmela Rosales LPN Start : 14-Dec-2017 End : 28-Dec-2017 Inactive NASACORT AQ, 55MCG/ACT (Nasal Aerosol Solution) [...] qd for 0 days Refills: 0 Ordered:16-Aug-2010 JOHAAN Ellis End : 16-Aug-2010 Inactive TAMIFLU, 75MG (Oral Capsule) Capsule BID5 days for 0 days Quantity: 10 {Capsule} Refills: 0 Ordered:15-May-2006 Reene Oreilly LPN Start : 15-May-2006 End : 04-Aug-2006 Inactive VITAMIN D, 2000UNIT (Oral Capsule) 1 (one) Capsule daily for 30 days Quantity: 30 {Capsule} Refills: 0 Ordered:12-Nov-2015 Wes Hernandez MD Start : 08-Aug-2015 End : 07-Sep-2015 Inactive ZOSTAVAX, 36400LZF/0.65ML (Subcutaneous Solution Reconstituted) 1 For Solution once [...] (Z68.30, V85.30) Status: Resolved as of 10-Sep-2017 BPH Status: Inactive as of 10-Aug-2012 Bronchitis (J40, 490) Status: Resolved as of 31-Dec-2016 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 kidney stones and back to [place] Status: Inactive as of 10-Aug-2012 Dysphagia, unspecified [...] Lung nodule (R91.1, 793.11) Comments: pulm at [facility] - Status: Inactive as of 17-Mar-2012 [...] influenza--to sick to send down to test, IV denysiuds phenegran- drove, talk about family proph Status: Resolved as of 25-Jul-2008 Pleural effusion (J90, 511.9) Comments: need to follow up on. last few CT scan of chest up at [facility] see Dr. Genaro santana. will send up report and asrrue they [...] (J06.9, 465.9) Status: Inactive as of 10-Aug-2012 WWV V70.0 Status: Inactive as of 10-Aug-2012 Procedures Procedure Dates Details Colonoscopy Completed Comments: 01-09-2010 (Dr. Dickinson) due in 10 years Colonoscopy - Dr West, patient reports Completed he is to check in 4 years Comments: colonoscopy 11/28/2009: moderate to severe diverticulosis, follow up 11/2019 kidney stones Completed Comments: 2015 Prostatectomy; Transurethral Completed Comments: 2006- benign Date Value Details 15-Dec-2017 CTA Chest W/WO Contrast Result: Comments: See Note; NOTES: [facility] Imaging Services [address] [place] [address] CTA Chest W/WO Contrast MR#: [id number] Acct: [id number] Name: GEORGE VANN Rep #: [id number] : 1940 M 77 From: Prasanna Lr MD PCP: Rosana Davis DO Status: REG CLI Study: CTA Chest W/WO Contrast Date of Exam: 12/15/17 Exam# [id number] Ordering Dr: Gaby Ro VACUUM FRAME OPERATOR-C STUDY: CTA CHEST REASON FOR EXAM: Male, 77 years old. Elevated d-dimer. Short of breath. Previous heart surgery. History of lung cancer status post lobectomy. RADIATION DOSAGE (If Supplied By Facility): CTD Ivol = ( 20.19 ) mGy, DLP = ( 727.77 ) mGycm TECHNIQUE: The examination was performed with the intravenous administration of 100 ml of Isovue 370 contrast material. Post-processing of the angiographic images was performed, with multiplanar reformation and 3D reconstruction. Individualized dose optimization techniques were used for this CT. COMPARISON: None. FIND INGS: Normal enhancement of the main pulmonary artery and right and left pulmonary arteries. Normal enhancement of the bilateral peripheral pulmonary arteries. There is no demonstrated pulmonary emboli sm. There is prominence of the main pulmonary arteries without peripheral pulmonary vascular congestion, suggesting pulmonary hypertension. There is atherosclerotic calcification of the aortic arch wit h tortuosity. There is no demonstrated aortic dissection. There is mild cardiomegaly. There are calcifications of the coronary arteries. Normal mediastinum. Normal hilar regions. Normal visualized t rachea and bronchi. There is evidence of COPD and centrilobular emphysema. There is a partially calcified 1.2 cm nodule in the lateral right middle lobe. Scarring seen in both posterior lower lobes. No rmal pleura. There are no pleural effusions. Normal chest wall structures. Moderate hiatal hernia. There are degenerative changes of thoracic spine. Views of the upper abdomen show numerous small bi lateral renal stones. CT/CTA Chest W/WO Contrast IMPRESSION: No evidence for PE. COPD. Cardiomegaly. Electronically Signed: Jerry Delgado at 16:37 EDT , Service support , CC: Gaby Ro NP; Rosana Davis DO Steam Power Plant Operator: Signed 14-Dec-2017 Chest PA and Lateral Result: Comments: See Note; NOTES: [facility] Imaging Services [address] [place] [address] Chest PA and Lateral MR#: [id number] Acct: [id number] Name: GEORGE VANN Rep #: [id number] : 1940 M 77 From: Jevon Back MD PCP: Rosana Davis DO Status: REG CLI Study: Chest PA and Lateral Date of Exam: 12/14/17 Exam# [id number] Ordering Dr: Gaby Ro VACUUM FRAME OPERATOR-C STUDY: X-RAY CHEST REASON FOR EXAM: Male, [...] CC: Gaby Ro NP; Rosana Davis DO Steam Power Plant Operator: Signed 10-Sep-2017 Cardiology Visit Report Result: Comments: See Note; NOTES: [facility] [address] [place] [address]. [address] [place] [address] OFFICE VISIT Date of Service: 09/10/17 MR#: [id number] Acct: [id number] Name: GEORGE VANN Rep #: [id number] : 1940 Provider: Butch Peres MD Age/Sex: 76/M Location: [facility] Status: Signed HPI HPI Chief Complaint: Follow up visit Details: GEORGE VANN, is a 76 M who presents to [facility] office today for a cardiovascular follow-up. He has a history of coronary artery disease with bypass surgery in 2003. He had a JUAREZ sequentially to the ramus intermedius and first diagonal, BUD to e LAD, SVG to the second diagonal, [...] Pressure 132/8 Intake Visit Reasons: 6 M Surfacing Technician Required: No Accompanied by: none Is patient [...] PFSH Medical History Atherosclerotic heart disease of [place] coronary artery without angina pectoris (Chronic) HLD [...] (Chronic) History of transurethral resection of prostate ( ron 06/03/06) Family History Mother Cancer Lung CA [...] posterior descendi ng artery and CX @ [facility] 07/20/2003; Plan He is status post coronary [...] pure hypercholesterolemia 09/10/17 1608 <Electronically signed by Butch Peres MD> Date Butch Peres MD Cosigner Signature: Date (if applicable) CC: Rosana Davis DO 13-Mar-2017 Office Visit Report Result: Comments: See Note; NOTES: [facility] [address] [place] [address] OFFICE VISIT Date of Service: 03/13/17 MR#: [id number] Acct: [id number] Patient: GEORGE VANN Rep #: [id number] : 1940 Provider: Rossana You Age/Sex: 76/M Location: [facility] Status: Signed Intake Vital Signs03/13/17 Height 5 ft 10 in 03/13/17 Blood Pressure 140/72 03/13/17 Blood Pressure Location Lt brachial Intake Visit Reasons: 2 wk bp ck per MMM Surfacing Technician Required: No Accompanied by: None Is patient [...] Visit Report Result: Comments: See Note; NOTES: [facility] [place] [address] [address] [place] [address] OFFICE VISIT Date of Service: 02/27/17 MR#: [id number] Acct: [id number] Name: GEORGE VANN Rep #: [id number] : 1940 Provider: Rossana You Age/Sex: 76/M Location: [facility] Status: Signed HPI 6 M FU: Details: [...] 02/27/17] Ejection fraction %: 60 to 64 REPLACED BY [facility] Medical History Atherosclerotic heart disease of [place] coronary artery without angina pectoris (Chronic) HLD [...] Cardiology Exam Const Appearance: cooperative, no ac tulalip distress and well developed Orientation: alert, awake [...] affect Assessment AND Plan 1. Atherosclerosis of [place] coronary artery of [place] heart without angina pectoris I25.10; I25.10; I25.10 CA BG x6: JUAREZ sequentially to Ramus Intermedius and first diagonal, BUD to LAD, SVG to diagonal 2, SVG sequentially to posterior descending artery and CX @ [facility] 07/20/2003; [facility] 01/07/2005. Plan - DILCIA Trinidad Stable, from [...] prior to saving. 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 He is followed at the [facility] in [place] for surveillance of his lung cancer. ED [...] everal years. He is followed at the [facility] in [place] for surveillance of his lung . cancer. [...] enema. [facility] He did receive empiric treatment for the [...] status post lobectomy left, treated at [facility], bladder tumor, stable Plan: Observe on telemetry Gentle hydration Gentle soapsuds enema Liquid diet as tolerated, may advance as tolerated Repeat lactic acid Hold parameters placed on blood pressure medication s (hold for systolic blood pressure less than 120) DVT prophylaxis with subcu heparin Plan of care discussed with patient and at bedside who voiced understanding 12/11/16 2040 <Electronic ally signed by Marie Edmond MD> Date Marie Edmond MD Cosigner Signature (if applicable): Date __ CC: Marie Edmond MD; Rosana Davis DO Signed 11-Dec-2016 Emergency Department Summary Result: Comments: See Note; NOTES: [facility] Medical Records Department [address] [place] [address] Emergency Department Summary 12/11/16 1604 MR#: [id number] Acct: [id number] Name: GEORGE VANN Rep #: [id number] : 1940 76 From: Sumanth Franco MD [...] Is evidence of diverticulosis and fecal stasis. Patien t has a right lower lobe infiltrate and [...] problems, contact your Primary Care Provider. Call [email or web address] Registry ([phone]) or report to the closest Emergency Room. Call 911 if necessary. 12/11/16 9944 <Electronically signed by Sumanth Franco MD> Date Sumanth Franco MD Cosigner Signature (If Indicated): Date CC: Rosana Davis DO 11-Dec-2016 Abdomen/Pelvis WITH Contrast Result: Comments: See Note; NOTES: [facility] Imaging Services [address] [place] [address] Abdomen/Pelvis WITH Contrast MR#: [id number] Acct: [id number] Name: GEORGE VANN Rep # : [id number] : 1940 M 76 From: Jake Bazzi MD PCP: Rosana Davis DO Status: [facility] Study: Abdomen/Pelvis WITH Contrast Date of Exam: 12/11/16 Exam# [id number] Ordering Dr: Sumanth Franco MD STUDY: CT [...] Jake harry MD at 16:07 EDT Tel [phone], Service support , CC: Rosana Davis DO; Sumanth Franco MD Steam Power Plant Operator: Signed 11-Dec-2016 Chest 1 View (Portable) Result: Comments: See Note; NOTES: [facility] Imaging Services [address] [place] [address] Chest 1 View (Portable) MR#: [id number] Acct: [id number] Name: GEORGE VANN Rep #: [id number] : 1940 M 76 From: Jake Bazzi MD PCP: Rosana Davis DO Status: [facility] ER Study: Chest 1 View (Portable) Date of Exam: 12/11/16 Exam# [id number] Ordering Dr: Sumanth Franco MD STUDY: X-RAY [...] Alexis Bazzi MD at 14:43 EDT Tel [phone], Service support , CC: Rosana Davis DO; Sumanth Franco MD Steam Power Plant Operator: Signed 21-Aug-2016 Operative Report Result: Comments: See Note; NOTES: [facility] Medical Records Department [address] [place] [address] Operative Report 08/21/16 1138 MR#: [id number] Acct: [id number] Name: YOUNG VANN THELMA Edwards Rep #: [id number] : 1940 75 From: Butch Peres MD PCP: Rosana Davis DO Status: REG CLI Y Location: [facility] Operative Report (Blank) Date of Procedure: [...] and Lateral Result: Comments: See Note; NOTES: [facility] Imaging Services [address] [place] [address] Verdana 4d Chest PA and Lateral MR#: [id number] Acct: [id number] Name: GEORGE VANN p #: [id number] : 1940 M 75 From: Ari Baker MD PCP: Rosana Davis DO Status: REG CLI Study: Chest PA and Lateral Date of Exam: 07/04/16 Exam# [id number] Ordering Dr: Rosana Davis DO STUDY: X-RAY [...] Service support , CC: Rosana Davis DO Steam Power Plant Operator: Signed 04-Jul-2016 Chest PA and Lateral Result: Comments: See Note; NOTES: [facility] Imaging Services [address] [place] [address] Verdana 4d Chest PA and Lateral MR#: [id number] Acct: [id number] Name: GEORGE VANN #: [id number] : 1940 M 75 From: Ari Baker MD PCP: Rosana Davis DO Status: REG CLI Study: Chest PA and Lateral Date of Exam: 07/04/16 Exam# [id number] Ordering Dr: Rosana Davis DO ADDENDUM by Ari Baker on 07/04/16 at 2357 RAD/Chest PA and Lateral IMPRESSION: There are no acute findings. Electronically Signed: Ari Baker MD at 23:57 EDT Tel , Service support , 07/05/16 0004 Date cc: Rosana Davis DO * Signed ADDENDUM by Ari Baker on 07/04/16 at 7645 ADDENDUM STUDY: X-RAY CHEST REASON FOR EXAM: [...] soft tissue structures of the upper abdomen. 07/04/16 1163 Date cc: Rosana ac DO * Signed [...] Service support , CC: Rosana Davis DO Steam Power Plant Operator: Signed 08-Feb-2016 Kidney and Bladder Result: Comments: See Note; NOTES: [facility] Imaging Services [address] [place] [address] Verdana 4d Kidney and Bladder MR#: [id number] Acct: [id number] Name: KATYGEORGE Jerry Rep #: [id number] : 1940 75 From: Jake Bazzi MD PCP: Wes Hernandez Status: REG CLI Study: Kidney and Bladder Date of Exam: 02/08/16 Exam# [id number] Ordering Dr: Yandel Murrieta MD STUDY: RENAL [...] Jake Bazzi MD at 15:02 EST Tel [phone], Service support [phone], CC: Yandel Murrieta MD; Wes Hernandez Steam Power Plant Operator: Signed 01-Feb-2016 6 Minute Walk Test Result: Comments: See Note; NOTES: [facility] Pulmonary Services/Neurology [address] [place] [address] MR#: [id number] Acct: [id number] Name: GEORGE VANN Rep #: [id number] : 1940 75 From: Sigifredo Best DO Referring Dr: Liliam Mcintosh NP Date: Ordering Dr: Marck: Jerry Hugo Location: PSN PSN 6 Minute Walk Test - 6 Minute Walk Test 6 Minute Walk Test: 6 Minute Walk Test P SN:6-Minute Walk Test Start: 01/31/16 12:55 Freq: Status: Active Document 01/31/16 12:55 SFENTON (Rec: 01/31/16 13:03 SFENTON [id number]) 6 Minute Walk Test Date Performed 01/31/16 Time Performed 12:40 Heig ht 1.78 m Weight: 95.254 kg Weight [...] he will not wear it. Liliam Mcintosh VACUUM FRAME OPERATOR is aware. Initialized on 01/31/16 12:58 - [...] CC: Date Dictated: 02/01/16826 Date Transcribed: 02/01/16826 Steam Power Plant Operator: Sigifredo Best DO Signed 10-Dec-2015 Operative Report Result: Comments: See Note; NOTES: [facility] Medical Records Department [address] [place] [address] Operative Report MR#: [id number] Acct: [id number] Name: GEORGE VANN Jerry Rep #: [id number] : 1940 75 From: Yandel Murrieta MD PCP: Wes Hernandez Status: [facility] DATE OF SERVICE: 12/07/2015 DATE OF SERVICE: [...] went into the bladder with a 21-Fren rigid cystourethroscope and immediately recognized that there [...] get into the distal ureter with an 8-Kittitian flexible ureteroscope and we performed ureteroscopy and [...] up. Yandel Murrieta MD T: NTS JOB: [id number] 12/10/15 0800 <Electronically signed by Yandel Murrieta MD> Date Yandel Murrieta MD Cosigner Signature (If Indicated): Date CC: Yandel Murrieta MD; Wes Hernandez Date Dictated: 0 Date Transcribed: 12/07/151449 Steam Power Plant Operator: Signed 08-Dec-2015 Emergency Department Summary Result: Comments: See Note; NOTES: [facility] Medical Records Department [address] [place] [address] Emergency Department Summary 12/08/15 1208 MR#: [id number] Acct: [id number] Name: GEORGE VANN Rep #: [id number] : 1940 75 From: Sumanth Franco MD [...] problems, contact your Primary Care Provider. Call [email or web address] Registry ([phone]) or report to the closest Emergency Room. Call 911 if n ecessary. 12/08/15 6108 <Electronically signed by Sumanth Franco MD> Date Sumanth Franco MD Cosigner Signature (If Indicated): Date __ CC: Wes Hernandez; Valeriy Bravo MD 08-Dec-2015 CTA Chest W/WO Contrast Result: Comments: See Note; NOTES: [facility] Imaging Services [address] [place] [address] Verdana 4d CTA Chest W/WO Contrast MR#: [id number] Acct: [id number] Name: GEORGE VANN Rep #: [id number] : 1940 M 75 From: Mariusz Goodson MD PCP: Wes Hernandez Status: REG ER Study: CTA Chest W/WO Contrast Date of Exam: 12/08/15 Exam# [id number] Ordering Dr: Sumanth Franco MD STUDY: CTA [...] at 15:16 EDT Tel , Service support [phone], CC: Wes Hernandez; Sumanth Franco MD Steam Power Plant Operator: Signed 08-Dec-2015 Chest PA and Lateral Result: Comments: See Note; NOTES: [facility] Imaging Services [address] [place] [address] Verdana 4d Chest PA and Lateral MR#: [id number] Acct: [id number] Name: GEORGE VANN #: [id number] : 1940 M 75 From: Poornima Mohan MD PCP: Wes Hernandez Status: REG ER Study: Chest PA and Lateral Date of Exam: 12/08/15 Exam# [id number] Ordering Dr: Sumanth Franco MD STUDY: X-RAY [...] MD at 12:52 EDT , Service support [phone], CC: Wes Hernandez ; Sumanth Franco MD Steam Power Plant Operator: Signed 07-Dec-2015 Operative Report Result: Comments: See Note; NOTES: [facility] Medical Records Department [address] [place] [address] Operative Report 12/07/15 1442 MR#: [id number] Acct: [id number] Name: ARIE VANN Rep #: [id number] : 1940 75 From: Yandel Murrieta MD PCP: Wes Hernandez Status: [facility] Y Location: [place] [address] Report of Operation Date of Procedure: 12/07/15 [...] Discharge Instruction Result: Comments: See Note; NOTES: [facility] Medical Records Department [address] [place] [address] Instructions for Home/Discharge Instructions 12/07/15 1300 MR#: [id number] Acct: [id number] Name: GEORGE VANN Rep #: [id number] : 1940 75 From: Yandel Murrieta MD PCP: Wes Hernandez Status: REG [facility] Discharge Diet: Light diet - advance as [...] Single View Result: Comments: See Note; NOTES: [facility] Imaging Services [address] [place] [address] Verdana 4d Abdomen Single View MR#: [id number] Acct: [id number] Name: GEORGE VANN p #: [id number] : 1940 75 From: Gilbert Kyle MD PCP: Wes Hernandez Status: [facility] Study: Abdomen Single View Date of Exam: 12/07/15 Exam# [id number] Ordering Dr: Yandel Murrieta MD STUDY: X [...] at 12:22 EDT Tel , Service support [phone], CC: Yandel Murrieta MD; Wes Hernandez Steam Power Plant Operator: Signed 29-Aug-2015 Carotid Duplex Ultrasound Result: Comments: See Note; NOTES: [facility] Cardiovascular Services [address] [place] [address] Carotid Duplex Ultrasound 08/28/15 1255 MR#: [id number] Acct: [id number] Name: GEORGE VANN Rep #: [id number] : 1940 74 From: Manny Rodriguez MD Attending Dr: Wes Hernandez Status: REG CLI Ordering Dr: Wes Hernandez Date: 08/28/15 Location: [facility] Sex: M C Admi tted: Reason [...] Dictated: 08/27 1255 Date Transcribed: 08/29/15 1122 Steam Power Plant Operator: Signed 09-Aug-2015 Echocardiogram Complete Result: Comments: See Note; NOTES: [facility] Cardiovascular Services [address] [place] [address] Echo Complete 08/09/15 1357 MR#: [id number] Acct: [id number] Name: LOUISE GRADYGEORGE Jerry Rep #: [id number] : 1940 74 From: Butch Peres MD Attending Dr: Butch Peres MD Status: REG CLI Ordering Dr: Butch Peres MD Date: 08/09/15 Location: [facility] Sex: M C Admitted: Reason For Study: [...] d: 08/09/15 1357 Date Transcribed: 08/09/15 1527 Steam Power Plant Operator: Signed 07-Aug-2015 Chest PA and Lateral Result: Comments: See Note; NOTES: [facility] Imaging Services [address] [facility] [address] Verdana 4d Chest PA and Lateral MR#: [id number] Acct: [id number] Name: GEORGE VANN Rep #: [id number] : 1940 M 74 From: Jake Bazzi MD PCP: Wes Hernandez Status: REG CLI Study: Chest PA and Lateral Date of Exam: 08/07/15 Exam# [id number] Ordering Dr: Butch Peres MD STUDY: X-RAY [...] Jake Bazzi MD at 11:08 EDT Tel [phone], Service support [phone], RAD/Chest PA and Lateral IMPRESSION: Stable examination. Electronically Signed: Jake Bazzi MD at 11:08 EDT Tel [phone], Service support [phone], CC: Wes Hernandez Steam Power Plant Operator: Signed 24-Jul-2015 Spirometry (79282) Result: 19-Mar-2015 Chest PA and Lateral Result: Comments: See Note; NOTES: [facility] Imaging Services [address] [place] [address] Verdana 4d Chest PA and Lateral MR#: [id number] Acct: [id number] Name: GEORGE VANN Rep #: [id number] : 1940 M 74 From: Peggy Mari MD PCP: Parul Rice MD Status: REG CLI Study: Chest PA and Lateral Date of Exam: 03/19/15 Exam# [id number] Ordering Dr: Torie Fletcher DO STUDY: X-RAY [...] at 19:14 EST Tel , Service support [phone], RAD/Chest PA and Lateral IMPRESSION: Suspect COPD. There appear stable dense right lung nodules. No demonstrated acute cardiopulmonary process. 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 Velocities/BP Lt. [...] vertebral artery. Acoustic shadowing. Procedure Carotid Duplex 87364. The exam was diagnostic. Exam performed in department. Interpretation Summary Mild (< 50%) stenosis right extracranial internal carotid. Mild (<50%) stenosis left extracranial internal carotid. Flow within the vertebral arteries is antegrade bilaterally. Ordering Physician: Rossana Vieira Referring Physician: Parul Rice M.D. 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, 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 Exercise History Comments: Light Status: Active Living Situation Comments: Lives with spouse, Status: Active No Drug Use Status: Active Non Smoker/No Tobacco Use Comments: quit 1993--smoke 30 years, pack a day Status: Active Vital Signs Date Test Result Details :06 Pulse 68 /min Comments: Pattern: Regular Respiration Rate 18 /min Comments: Pattern: Unlabored O2 SAT 88 % Comments: Room air BP Systolic 120 mm[Hg] Comments: Patient Position: Sitting; Cuff Location: Left Arm; Cuff Size: Standard BP Diastolic 60 mm[Hg] Comments: Patient Position: Sitting; Cuff Location: Left Arm; Cuff Size: Standard Weight 213.375 lb Height 69.5 in Body Mass Index Calculated 31.06 kg/m2 Body Surface Area Calculated 2.13 m2 :43 Temperature 97.8 f Comments: Method: Temporal [...] Area Calculated 2.14 m2 :27 Comments: not [place] Temperature 98.6 f Pulse 76 /min Comments: [...] 0.00 cm Results Date Description Value Details :31 Sputum Culture Comments: PATIENT NOT FASTINGPERFORMED BY: Shoptimise LabCoHyannis Port Research70 [facility] [id number] Result 1 RRF (Normal) Comments: Routine respiratory sana Lower Respiratory Culture Final report (Normal) :06 Metabolic Panel, Comprehensive Comments: PATIENT NOT FASTINGPERFORMED BY: Shoptimise [facility] Qjslvb0632 Rowe MailanaFormerly [facility] [id number] (75063) ALT (SGPT) 11 [iU]/L (Normal) Range: 0-44 [...] 8-27 Glucose 133 mg/dL (Abnormal) Range: 65-99 65-Rua-850945:06 CBC, Platelets & Auto Diff Comments: PATIENT NOT FASTINGPERFORMED BY: [facility] Jqeuyq7325 [facility] [id number] (48034) Immature Grans (Abs) 0.0 {x10E3/uL} (Normal) Range: [...] 4.14-5.80 WBC 9.5 {x10E3/uL} (Normal) Range: 3.4-10.8 16-Qgd-32784:31 Sputum Culture (38485) Comments: PATIENT NOT FASTINGPERFORMED BY: [place] 6095670 [facility] [id number] Information: SRC:SP Gram Stain Evaluation GSACC (Normal) Comments: This specimen is of good quality and is acceptable for routinebacterial culture. Result 1 PCF (Normal) Comments: Few gram positive cocciModerate amount of gram variable coccobacilli Epithelial Cells None seen (Normal) White Blood Cells None seen (Normal) 71-Ztj-359240:06 D-Dimer (32337) Comments: PATIENT NOT FASTINGPERFORMED BY: [facility]stagInsight Surgical Hospital6370 [facility] [id number] D-Dimer 0.95 {mg/L_FEU} (Abnormal) Range: 0.00-0.49 Comments: According to the assay biodiesel plant manager's published package insert, anormal (<0.50 mg/L FEU) D-dimer result in conjunction with a non-highclinical probability assessment, excludes deep vein thrombosis (D VT)and pulmonary embolism (PE) with high sensitivity. .D-dimer values increase with age and this can make VTE exclusion ofan older pop ulation difficult. To address this, the [place] Collegeof Physicians, based on best available evidence [...] 0.80 mg/L FEU. :58 Lipid Profile Comments: [facility] [address] [place], [place], [address] VLDL 21 mg/dL (Normal) Range: 5-40 LDL [...] mg/dL High Risk :58 Liver Profile Comments: [facility] Xjiskooayg[address] [place], [place], [address] D BILI 0.12 mg/dL (Normal) Range: 0.00-0.30 T BILI 0.50 mg/dL (Normal) Range: 0.20-1.00 ALT 17 U/L (Normal) Range: 16-61 ALK P 71 U/L (Normal) Range: 45-117 AST 16 U/L (Normal) Range: 15-37 GLOB 3.8 g/dL (Normal) Range: 2.2-4.2 ALB 3.6 g/dL (Normal) Range: 3.2-5.0 T PROT 7.4 g/dL (Normal) Range: 6.4-8.2 8-Oxm-127867:32 LACTATE (LACTIC ACID) (73928) Comments: PATIENT NOT FASTINGPERFORMED BY: [facility] Jzssis6995 [facility] [id number] Lactic Acid, Plasma 12.4 mg/dL (Normal) Range: 4.8-25.7 13-Bcf-457766:30 Lactic Acid Comments: Yes/No query for Sepsis Lactate Rule [facility] Kpbsomglzq[address] [place], [address] LACTIC ACID 2.3 mmol/L (Abnormal) Range: 0.4-2.0 Comments: Critical Result(s) Called at: 15:11:26 12/11/2016 by:Christen Moralez to [facility] 41-Bro-915713:00 Basic Metabolic Profile (BMP) Comments: [facility] Daaqtopabq[address] [place], [place], [address] GAP 10 (Normal) Range: 5-15 CO2 27.0 [...] 126 mg/dLsuggests DIABETES MELLITUS per A.D.A. criteria. 43-Xgg-728086:00 CBC W/Diff, Automated Comments: [facility] Iudzbiycwf[address] [place], [address] Absolute Lymph 2.89 {X10_3/ul} (Normal) Range: 0.83-4.51 [...] 4.6-6.2 WBC 9.9 K/mm3 (Normal) Range: 4.4-11.0 96-Fbv-643369:15 Cytology, Body Fluid / CSF Comments: Specimen Source: [facility] [address] [place], [place], [address] CYTOLOGY,BF/CSF SEE PATHOLOGY REPORT Comments: Specimen submitted to [facility]. (Normal) 31-Csa-619830:15 CYTOSPIN ON FLUID See Note (Normal) Comments: [address] [place], [place], [address] Comments: Patient: GEORGE VANN : 1940 (75/M) Acct Num: [id number] Phys: Glenny GARCIA,Yandel Warren Unit Num: [id number] Loc: [facility] Specimen: [id number] Received: 08/15/16 - 1126 Spec Type: CYSPIN FL TISSUES TISSUES: COMMENT Correlation with clinical findings and appropriate follow up are necessary. Please make reference to previous cytology ([id number]) urine for cytology with diagnosis of rare atypical urothelial noted and specimen ([id number] 5522) bladder tumor, TUR with diagnosis of papillary urothelial carcinoma. CYTOLOGY GROSS Received is 35 ml of clear gol d fluid labeled with the patient's name and and designated per the requisition as urine. Submitted for cytology preparation. / 08/15/16 TC:5 CPT: 09365 CYTOLOGY STUDY Slides are reviewe d. DIAGNOSIS CYTOLOGY Urine for cytology (cytospin): A few clusters of atypical urothelial cells noted. See comment. SJ:lorenzo 08/18/16 HEADER OPERATION: Not noted PRE-OP DIAGNO SIS: Hematuria R31.9 TISSUE SUBMITTED: Urine for cytology Signed Wes Morrow 08/18/16 <signature on file> 07-Xhz-29382:28 BNP,B-Type NATRIURETIC PEPTIDE Comments: Order Date: 08/14/16Order Info: [id number] - *Brain Natriuretic Peptide BNPWKing[facility] [address]jpsd[address] [place], [address] B-TYPE EDGAR PEP 45.3 pg/mL (Normal) Range: 0-100 40-Dbk-50885:20 Lipid Profile Comments: Order Date: 08/08/16Order Info: [id number] - *Hepatic Function PanelOrder Date: 08/08/16Order Info: 70809-8 - *Lipid Profile CC PCPComments: 12 hours fasting, may have water.[facility] [address]oh[address] [place], [address] VLDL 39 mg/dL (Normal) Range: 5-40 LDL [...] 200-240 mg/dL Borderline >240 mg/dL High Risk 58-Icl-41352:20 Liver Profile Comments: Order Date: 08/08/16Order Info: [id number] - *Hepatic Function PanelOrder Date: 08/08/16Order Info: 04955-4 - *Lipid Profile CC PCPComments: 12 hours fasting, may have water.[facility] La vjcciwnk[address] [place], [place], [address] D BILI 0.13 mg/dL (Normal) Range: 0.00-0.30 T BILI 0.70 mg/dL (Normal) Range: 0.20-1.00 ALT 18 U/L (Normal) Range: 12-78 ALK P 67 U/L (Normal) Range: 45-117 AST 12 U/L (Abnormal) Range: 15-37 GLOB 3.3 g/dL (Normal) Range: 2.3-3.5 ALB 3.7 g/dL (Normal) Range: 3.4-5.0 T PROT 7.0 g/dL (Normal) Range: 6.4-8.2 86-Bks-687448:45 Basic Metabolic Profile (BMP) Comments: [facility] [address]jfmwbpee[address] [place], [place], [id number] GAP 0 (Abnormal) Range: 5-15 CO2 30.0 [...] <126 mg/dLsuggests IMPAIRED HOMEOSTASIS per A.D.A. criteria. 56-Ixr-332853:45 CBC W/Diff, Automated Comments: [facility] [address]stxvui[address] [place], [place], [phone] Absolute Lymph 1.38 {X10_3/ul} (Normal) Range: 0.83-4.51 [...] 4.6-6.2 WBC 11.1 K/mm3 (Abnormal) Range: 4.4-11.0 00-Xah-416817:45 Troponin-I Comments: 'TROP' Serial specimen #1, #2, #3, or #4: 1WKing's [facility] [address]jllfm[address] [place], [place], [address] TROPONIN-I < 0.02 ng/mL Comments: TROPONIN-I EXPECTED VALUES <0.05 NEGATIVE 0.06 - 0.59 AT RISK OF TN > OR = 0.60 SUGGEST TN (Normal) BLADDER BX/FULGURATION See Note (Normal) Comments: [facility] [address]wf[address] [place], [address] :08 Comments: Patient: GEORGE VANN : 1940 (75/M) Acct Num: [id number] Phys: Glenny GARCIA,Urban Unit Num: [id number] Loc: [facility] Specimen: [id number] Received: 12/07/151513 Spec Ty pe: BLADDER BX [...] is totally submitted in one cassette. / SJ:rg 12/10/15 TC:0 CPT: 13686 x2 HEADER OPERATION: Cystoscopy, left ureteroscopy PRE-OP [...] summary is in compliance with College of [place] Pathology (CAP) Cancer Protocols Checklist and [place] Joint Committee on Cancer (AJCC), Staging Manual, 7t h Ed. B. Bladder tumor trigone, TUR: Fragments of urothelial mucosa with mild epithelial atypia. Negative for malignancy in the submitted specimen. See comment. SJ:lorenzo 12/11/15 Signed Wes Morrow 12/11/15 <signature on file> :37 Lipid Profile Comments: Order Date: 10/16/15OV Order #: [id number] Memorial Hospital [address]mmiap[address] [place], [place], [address] VLDL 31 mg/dL (Normal) Range: 5-40 LDL [...] Profile Comments: Order Date: 10/16/15OV Order #: [id number] Memorial Hospital Mguspnvuaw[address] [place], [address] D BILI 0.15 mg/dL (Normal) Range: 0.00-0.30 T BILI 0.60 mg/dL (Normal) Range: 0.20-1.00 ALT 17 U/L (Normal) Range: 12-78 ALK P 60 U/L (Normal) Range: 50-136 AST 13 U/L (Abnormal) Range: 15-37 GLOB 3.4 g/dL (Normal) Range: 2.3-3.5 ALB 3.6 g/dL (Normal) Range: 3.4-5.0 T PROT 7.0 g/dL (Normal) Range: 6.4-8.2 :18 SED RATE ERYTHROCYTE Comments: PATIENT WAS FASTINGPERFORMED BY: BestTravelWebsitesRoosevelt General HospitalUoxqgm4726 [facility] [id number] BY: [address] [id number] ([address]) Sedimentation Rate-Westergren 4 mm/h (Normal) Range: 0-30 :18 RHEUMATOID FACTOR-QUANT Comments: PATIENT WAS FASTINGPERFORMED BY: BestTravelWebsitesDebra Ville [address] [facility] [id number] BY: Newstag[address] [id number] (34284) RA Latex Turbid. 4.8 {IU/mL} (Normal) Range: 0.0-13.9 :18 C-REACTIVE PROTEIN (77012) Comments: PATIENT WAS FASTINGPERFORMED BY: BestTravelWebsitesHackensack University Medical CenterTpediq6920 [facility] [id number] BY: [address] [id number] C-Reactive Protein, Quant 12.2 mg/L (Abnormal) Range: 0.0-4.9 :18 PSA (Medicare - G0103) Comments: PATIENT WAS FASTINGPERFORMED BY: BestTravelWebsitesHackensack University Medical CenterCmzjlo1048 [facility] [id number] BY: [address] [id number] (95144) Prostate Specific Ag, 2.6 ng/mL (Normal) Range: 0.0-4.0 Serum Comments: Dariusz ECLIA methodology. .According to the [place] Urological Association, Serum PSA shoulddecrease and remain [...] AND FOLATES Comments: PATIENT WAS FASTINGPERFORMED BY: TVS Logistics ServicesMurray-Calloway County Hospital [id number] BY: BestTravelWebsitesNicholas Ville [id number] (24563) Folate (Folic Acid), Serum >20.0 ng/mL (Normal) Comments: A serum folate concentration of less than 3.1 ng/mL isconsidered to represent clinical deficiency. Vitamin B12 543 pg/mL (Normal) Range: 211-946 :18 VITAMIN D, 1, 25-DIHYDROXY Comments: PATIENT WAS FASTINGPERFORMED BY: QM ScientificECU Health Du[facility] Hospital [id number] BY: BestTravelWebsites[address] [id number] ([address]121) Calcitriol(1,25 di-OH Vit D) 35.3 pg/mL (Normal) Range: 19.9-79.3 :18 TSH (THYROID STIMULATING Comments: PATIENT WAS FASTINGPERFORMED BY: QM ScientificECU Health [facility] [id number] BY: BestTravelWebsites[address] [id number] HORMONE) (74955) TSH 1.680 {uIU/mL} (Normal) Range: 0.450-4.500 :18 LIPID PANEL (10283) Comments: PATIENT WAS FASTINGPERFORMED BY: EventialsDublin [place] [id number] BY: BestTravelWebsites[address] [id number] LDL/HDL Ratio 1.8 {ratio_units} (Normal) Range: 0.0-3.6 [...] Cholesterol, Total 121 mg/dL (Normal) Range: 100-199 26-Jul-20157:18 METABOLIC PANEL, Comments: PATIENT WAS FASTINGPERFORMED BY: Path101 Sdqbow5709 [facility] [id number] BY: BestTravelWebsites[address] [id number] [facility] (99433) ALT (SGPT) 10 [iU]/L (Normal) Range: 0-44 [...] Comments: PATIENT WAS FASTINGPERFORMED BY: CB [facility] Htssae1617 [facility] [id number] BY: BN [facility] Qyckshoqop1514 [facility] [id number] Information: [id number] (82898) Immature Grans (Abs) 0.0 {x10E3/uL} (Normal) Range: [...] 4.14-5.80 WBC 5.0 {x10E3/uL} (Normal) Range: 3.4-10.8 :10 HgA1C , Office (46173) HgA1C , Office 5.6 % (Normal) Range: 4.6 - 7.1 :55 Lipid Profile Comments: [facility] [address] [place], [place], [address] VLDL 33 mg/dL (Normal) Range: 5-40 LDL [...] mg/dL High Risk :55 Liver Profile Comments: [facility] [address]pfz[address] [place], [place], [address] D BILI 0.18 mg/dL (Normal) Range: 0.00-0.30 T BILI 0.50 mg/dL (Normal) Range: 0.20-1.00 ALT 15 U/L (Normal) Range: 12-78 ALK P 85 U/L (Normal) Range: 50-136 AST 13 U/L (Abnormal) Range: 15-37 GLOB 3.5 g/dL (Normal) Range: 2.3-3.5 ALB 3.5 g/dL (Normal) Range: 3.4-5.0 T PROT 7.0 g/dL (Normal) Range: 6.4-8.2 :55 HgA1C , Office (15851) HgA1C , Office 5.5 % (Normal) Range: 4.6 - 7.1 1-Oui-467755:23 URINE MONTSE CULTURE-IDENTIFICATN Comments: PATIENT NOT FASTINGPERFORMED BY: NewstagSarah [place] 6095670 [facility] [id number] Information: [id number] (85763) Result 1 NG36 (Normal) Comments: No growth in 36 - 48 hours. Urine Culture,Comprehensive Final report (Normal) :31 Urinalysis, Office (28454) UA - LEUKOCYTE ESTERASE Trace (Normal) UA [...] MONTSE CULTURE-IDENTIFICATN Comments: PATIENT NOT FASTINGPERFORMED BY: BestTravelWebsites Iwxdbc1175 [facility] [id number] Information: [id number] (60558) Result 1 MUG (Normal) Comments: Mixed urogenital flora1,000 Colonies/mL Urine Culture,Comprehensive Final report (Normal) :03 Urinalysis, Office (96849) UA - LEUKOCYTE ESTERASE Trace (Normal) UA - NITRITE Negative (Normal) URINE UROBILINGN DEEPALI TIMED Normal mg/dL (Normal) UA - PROTEIN Negative mg/dL (Normal) UA - PH 5 (Abnormal) UA - BLOOD Hemolyzed Trace (Normal) UA - SPECIFIC GRAVITY 1.030 (Abnormal) UA - KETONES Negative mg/dL (Normal) UA - BILIRUBIN Negative (Normal) UA - GLUCOSE Negative (Normal) :25 Urinalysis, Office (72755) UA - LEUKOCYTE ESTERASE Small (Normal) UA - NITRITE Negative (Normal) URINE UROBILINGN DEEPALI TIMED Normal mg/dL (Normal) UA - PROTEIN 100 mg/dL (Normal) UA - PH 6 (Abnormal) UA - BLOOD Hemolyzed Moderate (Normal) UA - SPECIFIC GRAVITY 1.030 (Abnormal) UA - KETONES Negative mg/dL (Normal) UA - BILIRUBIN Negative (Normal) UA - GLUCOSE Negative (Normal) :38 LIPID PANEL (76376) Comments: copy to Dr. peres; PATIENT WAS FASTINGPERFORMED BY: OneStopWeb6370 [facility] [facility] [id number] LDL/HDL Ratio 1.6 {ratio_units} (Normal) Range: 0.0-3.6 [...] 130 mg/dL (Normal) Range: 100-199 :38 CALCIFIDIOL (00493) VIT D 25 Comments: PATIENT WAS FASTINGPERFORMED BY: OneStopWeb6370 [facility] [id number] Vitamin D, 25-Hydroxy 35.1 ng/mL (Normal) Range: 30.0-100.0 Comments: Vitamin D deficiency has been defined by the [place] of[place]icine and an Endocrine Society practice guideline as alevel of serum 25-OH vitamin D less than 20 ng/mL (1,2).The Endocrine Society went on to further define vitamin Dinsufficiency as a level between 21 and 29 ng/mL (2).1. IOM ([place] of Medicine). 2010. Dietary reference intakes for calcium and D. [place]: The National Academies Press.2. Tammy MF, [place], Arnav DANIELLE, et al. Evaluation, treatment, and prevention of vitamin D deficiency: an Endocrine Society clinical practice guideline. JCEM. 2010; 96(7):1911-30. :38 TSH (20281) Comments: PATIENT WAS FASTINGPERFORMED BY: [employer]ured [employer]6370 [facility] [id number] TSH 2.630 {uIU/mL} (Normal) Range: 0.450-4.500 :38 METABOLIC PANEL, COMPREHENSIVE Comments: PATIENT WAS FASTINGPERFORMED BY: BestTravelWebsitesHackensack University Medical CenterBmxcew0550 [facility] [id number] (36800) ALT (SGPT) 11 [iU]/L (Normal) Range: 0-44 [...] auto diff Comments: PATIENT WAS FASTINGPERFORMED BY: BestTravelWebsitesHackensack University Medical CenterGpiikb6702 [facility] [id number] Information: [id number] (84773) Immature Grans (Abs) 0.0 {x10E3/uL} (Normal) Range: [...] 4.14-5.80 WBC 5.9 {x10E3/uL} (Normal) Range: 3.4-10.8 43-Xoj-52611:11 Lipid Profile Comments: Test performed at:[facility] [address]lfnjiggij[address] [place], [place] [address] VLDL 23 mg/dL (Normal) Range: 5-40 LDL [...] Risk :11 Liver Profile Comments: Test performed at:[facility] [address] [place] [address] D BILI 0.19 mg/dL (Normal) Range: 0.00-0.30 T BILI 0.90 mg/dL (Normal) Range: 0.20-1.00 ALT 16 U/L (Normal) Range: 12-78 ALK P 74 U/L (Normal) Range: 50-136 AST 14 U/L (Abnormal) Range: 15-37 GLOB 3.5 g/dL (Normal) Range: 2.3-3.5 ALB 3.6 g/dL (Normal) Range: 3.4-5.0 T PROT 7.1 g/dL (Normal) Range: 6.4-8.2 :19 Basic Metabolic Profile (BMP) Comments: Test performed at:[facility] [address] [place] [address] GAP 5 (Normal) Range: 5-15 CO2 27.0 [...] Blood Cnt No Diff Comments: Test performed at:[facility] Thkpkepelo9725 [facility] [place] [address] MPV 10.2 fL (Normal) Range: [...] PSA,Total - Annual Screen Comments: Test performed at:[facility] Dufevlhafa[address] [place] [address] PSA,TOT SCREEN 2.34 ng/mL (Normal) Range: 0.00-4.00 Comments: This test was performed using the TPSA assay method for the5211game chemistry system. Values obtained with differentassay methods cannot be used interchangably.When changing PSA assays in the course of monitoring apatient, additional sequential testing should be carriedout to confirm baseline values. 3-Dyh-532940:32 CBC With Differential/Platelet Comments: PATIENT WAS FASTINGPERFORMED BY: CB [facility] Bkeuyg3234 [facility] [id number] BY: BN [facility] [address] [id number] Immature Grans (Abs) 0.0 {x10E3/uL} Range: 0.0-0.1 [...] SPRCS (Normal) Comments: PATIENT WAS FASTINGPERFORMED BY: [employer] EasilyDo [facility] [id number] BY: New[address] [id number] 2:32 Comments: Non reactive HCV antibody screen is consistent with no HCV infection,unless recent infection is suspected or other evidence exists toindicate HCV infection. Fibrinogen Antigen 509 mg/dL (Abnormal) Comments: PATIENT WAS FASTINGPERFORMED BY: [employer] Hwupjj8208 [facility] [id number] BY: New[address] [id number] 2:32 Range: 180-350 H. pylori, IgG Abs <0.9 U/mL (Normal) Comments: PATIENT WAS FASTINGPERFORMED BY: [employer] Ot[address] [place] [address] [id number] BY: [address] [id number] 2:32 Range: 0.0-0.8 Comments: Negative <0.9 Indeterminate 0.9 - 1.0 Positive >1.0 HBsAg Screen Negative (Normal) Comments: PATIENT WAS FASTINGPERFORMED BY: Newstag[address] [id number] BY: [address] [id number] 2:32 :32 HBV Core Ab, IgG/IgM Comments: PATIENT WAS FASTINGPERFORMED BY: [address] [id number] BY: [address] [id number] Diff Hep B Core Ab, Tot Negative (Normal) Hep B Core Ab, IgM Negative (Normal) :32 HCV Ab w/Rflx to Comments: PATIENT WAS FASTINGPERFORMED BY: Newstag[address] [id number] BY: [address] [id number] Verification HCV Ab 0.1 {s/co_ratio} (Normal) Range: 0.0-0.9 :32 Hep B Surface Ab Comments: PATIENT WAS FASTINGPERFORMED BY: [address] [id number] BY: [address] [id number] Hep B Surface Ab, Qual Non Reactive Comments: Non Reactive: Inconsistent with immunity, less than 10 mIU/mL Reactive: Consistent with immunity, greater than 9.9 mIU/mL (Normal) Methylmalonic Acid, 187 nmol/L Comments: PATIENT WAS FASTINGPERFORMED BY: [address] [id number] BY: [address] [id number] :32 Serum (Normal) Range: 0-378 Comments: Please note reference interval change :32 Prothrombin Time (PT) Comments: PATIENT WAS FASTINGPERFORMED BY: [place] [id number] [facility] [id number] BY: [address] [id number] Prothrombin Time 10.2 {sec} (Normal) Range: 9.1-12.0 INR 1.0 (Normal) Range: 0.8-1.2 Comments: Reference interval is for non-anticoagulated patients. . Suggested INR therapeutic range for Vitamin K anta gonist therapy: Standard Dose (moderate intensity therapeutic range): 2.0 - 3.0 Higher intensity therapeutic range 2.5 - 3.5 :32 PTT, Activated Comments: PATIENT WAS FASTINGPERFORMED BY: [address] [id number] BY: [address] [id number] aPTT 29 {sec} (Normal) Range: 24-33 Comments: This test has not been validated for monitoring unfractionated heparintherapy. aPTT-based therapeutic ranges for unfractionated heparintherapy have not been established. For general guidelines onHeparin monitoring, refer to the [facility] Directory of Services. Sedimentation 8 mm/h (Normal) Comments: PATIENT WAS FASTINGPERFORMED BY: [place] [id number] [facility] [id number] BY: [address] [id number] :32 Rate-Westergren Range: 0-30 Vitamin B12 457 pg/mL (Normal) Comments: PATIENT WAS FASTINGPERFORMED BY: [address] [id number] BY: [address] [id number] :32 Range: 211-946 :12 Basic Metabolic Profile (BMP) Comments: Test performed at:[facility] Iwj[address] [place] [address] GAP 4 (Abnormal) Range: 5-15 [...] :12 CBC W/Diff, Automated Comments: Test performed at:[facility] Iq[address]ubcbsa[address] [place] [address] Absolute Lymph 1.66 {X10_3/ul} (Normal) Range: 0.83-4.51 [...] 4.4-11.0 :12 Lipid Profile Comments: Test performed at:[facility] [address] [place] [address] VLDL 25 mg/dL (Normal) Range: 5-40 LDL [...] Risk :12 Liver Profile Comments: Test performed at:[facility] Aetjtbqbwu0575 [facility] [place] [address] D BILI 0.19 mg/dL (Normal) Range: 0.00-0.30 T BILI 0.60 mg/dL (Normal) Range: 0.00-4.00 ALT 19 U/L (Normal) Range: 12-78 ALK P 67 U/L (Normal) Range: 50-136 AST 14 U/L (Abnormal) Range: 15-37 GLOB 3.1 g/dL (Normal) Range: 2.7-4.2 ALB 3.8 g/dL (Normal) Range: 3.4-5.0 T PROT 6.9 g/dL (Normal) Range: 6.4-8.2 :12 Urinalysis, Complete Comments: How was Urine Obtained? CLEAN CATCHTest performed at:[facility] A[address]abf[address] [facility] [place] [address] MUCUS, URINE 1+ {/hpf} (Normal) BACTERIA RARE [...] performed using the TPSA assay method for net[employer] chemistry system. Values obtained with differentassay methods [...] CHOL 148 mg/dL (Normal) Comments: <200 mg/dL Raoxohczu011-983 mg/dL Borderline>240 mg/dL High Risk :09 LIVER BID 0.16 mg/dL (Normal) Range: 0.00-0.30 BIT 0.70 mg/dL (Normal) Range: 0.00-1.00 ALT 21 U/L (Normal) Range: 12-78 ALK 66 U/L (Normal) Range: 45-117 AST 17 U/L (Normal) Range: 15-37 ALB 3.8 g/dL (Normal) Range: 3.4-5.0 TPROT 7.1 g/dL (Normal) Range: 6.4-8.2 :46 PSA (PROSTATE SPECIFIC Comments: screening; PATIENT WAS FASTINGPERFORMED BY: [employer] Idtbno2345 [facility] [id number] ANTIGEN) (V76.44) Prostate Specific Ag, 1.9 ng/mL (Normal) Range: 0.0-4.0 Serum Comments: PieceableIA methodology. .According to the [place] Urological Association, Serum PSA shoulddecrease and remain [...] of malignant disease. :46 URINALYSIS, W/ MICRO (79064) Comments: PATIENT WAS FASTINGPERFORMED BY: [employer]6370 [facility] [id number] Microscopic Examination See below: (Normal) Nitrite, Urine Negative (Normal) Urobilinogen,Semi-Qn 0.2 mg/dL (Normal) Range: 0.0-1.9 Bilirubin Negative (Normal) Occult Blood Negative (Normal) Ketones Trace (Abnormal) Glucose Negative (Normal) Protein Trace (Normal) Appearance Clear (Normal) WBC Esterase Trace (Abnormal) Urine-Color Yellow (Normal) pH 5.5 (Normal) Range: 5.0-7.5 Specific Trinidad 1.026 (Normal) Range: 1.005-1.030 :46 MICROALBUMIN: CREATININE RATIO Comments: PATIENT WAS FASTINGPERFORMED BY: NetCom SystemsHackensack University Medical CenterCjtlwv8455 [facility] [id number] (06406) AND (33307) Microalb/Creat Ratio 20.0 {mg/g_creat} (Normal) Range: 0.0-30.0 Creatinine, Urine 307.4 mg/dL (Normal) Range: 22.0-328.0 Microalbumin, Urine 61.5 ug/mL (Abnormal) Range: 0.0-17.0 :46 METABOLIC PANEL, COMPREHENSIVE Comments: PATIENT WAS FASTINGPERFORMED BY: [employer] Twgqit4768 [facility] [facility] [id number] (53410) ALT (SGPT) 13 [iU]/L (Normal) Range: 0-44 [...] mg/dL (Normal) Range: 65-99 :46 LIPID PANEL (97753) Comments: send results to Dr Peguero; PATIENT WAS FASTINGPERFORMED BY: [employer]6370 [address] [facility] [id number] LDL Cholesterol Calc 71 mg/dL (Normal) Range: 0-99 LDL/HDL Ratio 1.7 {ratio_units} (Normal) Range: 0.0-3.6 VLDL Cholesterol Sree 23 mg/dL (Normal) Range: 5-40 HDL Cholesterol 43 mg/dL (Normal) Comments: According to ATP-III Guidelines, HDL-C >59 mg/dL is considered anegative risk factor for CHD. Triglycerides 113 mg/dL (Normal) Range: 0-149 Cholesterol, Total 137 mg/dL (Normal) Range: 100-199 20-Mab-59115:46 CBC WITH MANUAL DIFF Comments: PATIENT WAS FASTINGPERFORMED BY: [facility]6370 [facility] [id number] Information: [id number] (07907) Immature Grans (Abs) 0.0 {x10E3/uL} (Normal) Range: [...] 5.3 {x10E3/uL} (Normal) Range: 4.0-10.5 :46 TSH (10526) Comments: PATIENT WAS FASTINGPERFORMED BY: [facility]6370 [facility] [id number] TSH 1.790 {uIU/mL} (Normal) Range: 0.450-4.500 :46 Microscopic Examination Comments: PATIENT WAS FASTINGPERFORMED BY: [facility] [id number] Bacteria Few (Normal) Mucus Threads Present (Normal) Crystal Type Calcium Oxalate (Normal) Crystals Present (Abnormal) Epithelial Cells (non renal) 0-10 {/hpf} (Normal) Range: 0 - 10 RBC 0-3 {/hpf} (Normal) Range: 0 - 3 WBC 0-5 {/hpf} (Normal) Range: 0 - 5 :26 MONTSE CULTURE-OTHER (29401) Comments: PATIENT NOT FASTINGPERFORMED BY: [place] [id number] [facility] [id number] Information: SRC:THRT [id number] Result 1 RRF (Normal) Comments: Routine respiratory sana Upper Respiratory Culture Final report (Normal) 6-Mqo-451462:09 Rapid Strep Test, Office (11675) Rapid Strep Test, Office Negative (Normal) 71-Bxk-000327:04 Microscopic Examination Comments: PATIENT NOT FASTINGPERFORMED BY: [facility] [id number] Bacteria Few (Normal) Mucus Threads Present (Normal) Crystal Type Calcium Oxalate (Normal) Crystals Present (Abnormal) Epithelial Cells (non renal) None seen {/hpf} (Normal) Range: 0 - 10 RBC 4-10 {/hpf} (Abnormal) Range: 0 - 3 WBC 0-5 {/hpf} (Normal) Range: 0 - 5 60-Xhn-908130:04 PSA (PROSTATE SPECIFIC Comments: PATIENT NOT FASTINGPERFORMED BY: [facility] [id number] ANTIGEN) (V76.44) Prostate Specific Ag, 1.6 ng/mL (Normal) Range: 0.0-4.0 Serum Comments: Dariusz Chasqui BusIA methodology..According to the [place] Urological Association, Serum PSA shoulddecrease and remain at undetectable levels after radicalprostatectomy. The AUA defines biochemical recurrence a s an initialPSA value 0.2 ng/mL or greater followed by a subsequent confirmatoryPSA value 0.2 ng/mL or greater.Values obtained with different assay methods or kits cannot be usedinterchangeably. Results cannot be interpreted as absolute evidenceof the presence or absence of malignant disease. :04 URINALYSIS (60238) Comments: PATIENT NOT FASTINGPERFORMED BY: [employer] Mjmmla0248 [facility] [id number] Information: [id number] Microscopic Examination See below: (Normal) Bilirubin Negative (Normal) Glucose Negative (Normal) Ketones Trace (Abnormal) Nitrite, Urine Negative (Normal) Occult Blood Trace (Abnormal) Urobilinogen,Semi-Qn 0.2 mg/dL (Normal) Range: 0.0-1.9 Protein Trace (Normal) WBC Esterase Negative (Normal) Appearance Clear (Normal) pH 6.0 (Normal) Range: 5.0-7.5 Urine-Color Yellow (Normal) Specific Trinidad 1.028 (Normal) Range: 1.005-1.030 :04 CBC (Auto) (83100) Comments: PATIENT NOT FASTINGPERFORMED BY: [employer] Nzorfc5769 Rowe [facility] [id number] Platelets 139 {x10E3/uL} (Abnormal) Range: 140-415 Hematocrit 41.1 % (Normal) Range: 36.0-50.0 MCH 30.0 pg (Normal) Range: 27.0-34.0 MCHC 33.8 g/dL (Normal) Range: 32.0-36.0 MCV 89 fL (Normal) Range: 80-98 RDW 13.6 % (Normal) Range: 11.7-15.0 Hemoglobin 13.9 g/dL (Normal) Range: 12.5-17.0 RBC 4.64 {x10E6/uL} (Normal) Range: 4.10-5.60 WBC 5.4 {x10E3/uL} (Normal) Range: 4.0-10.5 27-Zen-814166:04 Metabolic Panel, Basic Comments: PATIENT NOT FASTINGPERFORMED BY: [facility] Hpqnih3483 [facility] [id number] (40403) Calcium, Serum 9.9 mg/dL (Normal) Range: 8.6-10.2 [...] Glucose, Serum 97 mg/dL (Normal) Range: 65-99 49-Ort-51209:10 BMP Comments: Please Note: TROPONIN REFERENCE RANGE [...] 3.5-5.1 NA 138 mmol/L (Normal) Range: 136-145 87-Gro-33008:10 CBCD EOS 1 % (Normal) Range: 0-5 [...] 5 <or= 4AMI > 5 > 4 40-Yso-13999:10 TROPONIN-I < 0.02 ng/mL (Normal) Comments: Please Note: TROPONIN REFERENCE RANGE CHANGEEffective JANUARY 23, 2009. Comments: TROPONIN-I EXPECTED VALUES <0.05 NEGATIVE0.06 - 0.59 AT RISK OF TN> OR = 0.60 SUGGEST TN 49-Lwb-16360:25 CKMB Comments: Please Note: TROPONIN REFERENCE RANGE CHANGEEffective JANUARY 23, 2009. CPK TOTAL 43 U/L (Normal) Range: 35-232 CPKMB < 0.5 ng/mL (Normal) Range: 0.0-5.0 Comments: CK-MB and RI Interpretation MB Relative IndexNon-AMI <or= 5 NAIndeterminate > 5 <or= 4AMI > 5 > 4 50-Jda-63440:25 TROPONIN-I < 0.02 ng/mL (Normal) Comments: Please Note: TROPONIN REFERENCE RANGE CHANGEEffective JANUARY 23, 2009. Comments: TROPONIN-I EXPECTED VALUES <0.05 NEGATIVE0.06 - 0.59 AT RISK OF TN> OR = 0.60 SUGGEST TN 85-Vwj-121295:10 TROPONIN-I 0.03 ng/mL (Normal) Comments: Please Note: TROPONIN REFERENCE RANGE CHANGEEffective JANUARY 23, 2009. Comments: TROPONIN-I EXPECTED VALUES <0.05 NEGATIVE0.06 - 0.59 AT RISK OF TN> OR = 0.60 SUGGEST TN 32-Tbm-163404:55 CKMB Comments: COMMENTS: ADD TO TROP DRAWN [...] CHOL 108 mg/dL (Normal) Comments: <200 mg/dL Ujpnucixb269-969 mg/dL Borderline>240 mg/dL High Risk :22 LIVER [...] Report See Note (Normal) Comments: Exam Number: [id number] PET CT. CLINICAL STATEMENTPulmonary nodule. Correlation is [...] Report See Note (Normal) Comments: Exam Number: [id number] CT SCAN OF CHEST. HISTORYNeoplasm of uncertain [...] be, measuring 14 ml. The lesion measured uayctexekroth87 ml in maximum dimension on the biopsy [...] Reported By: DEXTER ANDRADE M.D. :05 TSH (09526) Comments: PATIENT WAS FASTINGPERFORMED BY: [employer] Aduvjg0928 [facility] [id number] TSH 2.084 {uIU/mL} (Normal) Range: 0.350-5.500 Comments: Adult TSH concentrations below 5.5 uIU/mL does not rule out the presence of subclinical hypothyroidism. :05 METABOLIC PANEL, COMPREHENSIVE Comments: PATIENT WAS FASTINGPERFORMED BY: [employer] Yuqrqy3866 [facility] [id number] (44199) A/G Ratio 1.7 (Normal) Range: 1.1-2.5 Albumin, [...] Est >60 mL/min (Normal) Range: 60-137 If -Citizen Of [place] >60 mL/min (Normal) Range: 60-137 Comments: Note: [...] Glucose, Serum 95 mg/dL (Normal) Range: 65-99 18-Iad-02662:05 CBC WITH MANUAL DIFF (08976) Comments: PATIENT WAS FASTINGClinical Information: ADD DRAW FEE [id number] ADD J 54131 PERFORMED BY: [facility] [id number] Baso (Absolute) 0.1 {x10E3/uL} (Normal) Range: 0.0-0.2 [...] 11.7-15.0 WBC 5.7 {x10E3/uL} (Normal) Range: 4.0-10.5 :05 PSA (PROSTATE SPECIFIC Comments: PATIENT WAS FASTINGPERFORMED BY: [facility]6370 [facility] [id number] ANTIGEN) (V76.44) Prostate Specific Ag, Serum 2.1 ng/mL (Normal) Range: 0.0-4.0 Comments: [employer] [facility]ION[facility] methodology :16 CHEST, PA AND LATERAL Radiology Report See Note (Normal) Comments: Exam Number: [id number] PA AND LATERAL CHEST HISTORY Being done [...] Report See Note (Normal) Comments: Exam Number: [id number] PERCUTANEOUS LUNG BIOPSY HISTORY The patient has [...] see above. Reported By: VALERIY LAU M.D. 10-Mxl-15657:00 TISS/FLUID P-BX/CY (Normal) Comments: OPERATION CT guided [...] preparation. Sub mitted for cytology study. / AM:van 08/19/06 TC:5 REPORT SIGNED: ELIDIA VEGA 08/20/06:33 [...] 3.5-5.1 NA 137 mmol/L (Normal) Range: 136-145 49-Zmu-68807:45 CBC Comments: COMMENTS: THIS AMPrecautions*: NOT APPLICABLE HCT 30.3 % (Abnormal) Range: 40-54 HGB 10.5 g/dL (Abnormal) Range: 14.0-18.0 MCH 31.4 pg (Normal) Range: 27.0-32.0 MCHC 34.7 g/dL (Normal) Range: 32-36 MCV 90.6 fL (Normal) Range: 80-94 PLT 198 K/mm3 (Normal) Range: 150-450 RBC 3.34 {M/mm3} (Abnormal) Range: 4.6-6.2 RDW 13.2 % (Normal) Range: 11.6-14.6 WBC 10.8 K/mm3 (Normal) Range: 4.4-11.0 80-Wbq-333041:22 TURP P-PROS (Normal) Comments: OPERATION Cystoscopy, TUR prostate PRE-OPERATIVE DIAGNOSIS Enlarged prostate, outlet obstruction POST-OPERATIVE DIAGNOSIS Same TISSUE SUBMITTED Prostate tissue MICROSCOPIC DIAGNOSIS Prostate, trans urethral resection: Acute, chronic and granulomatous prostatitis. No evidence of malignancy. Negative for acid fast bacilli and fungal organisms. AM:van 06/04/06 COMMENT This case has been review ed in consultation with Dr. Morrow who concurs with the above diagnosis. IDC:PAULA GROSS DESCRIPTION Received in formalin labeled with patient name and number and designated prostate tissue are mul tiple irregular fragments of pink-torrez, rubbery, soft tissue that in aggregate weigh 22.7 gm and measure in aggregate 6 x 5 x 2.5 cm. The specimen is totally submitted in 12 cassettes. / SJ:van 7 TC:2 REPORT SIGNED: ELIDIA VEGA 06/04/0629-May-20066-Ndc-452021:08 CALCULI P-CALC (Normal) Comments: OPERATION Cytoscopy, litholapaxy, [...] entire specimen is submitted for stone analysis. /SJ:cm 06/01/06 REPORT SIGNED: EDITH MORROWI 06/02/0629-May-20066-Scb-215284:34 CALCULI 123714 CA OXAL DIHYDR 30 % (Normal) CA OXAL MONOHYD 60 % (Normal) CA PHOSPHATE 10 % (Normal) COLOR Brown (Abnormal) COMMENT Comment (Normal) Comments: Physician questions regarding Calculi Analysis contactLabCo at: [phone].Performed At: [address] [id number] Comment Comment (Normal) Comments: Percentage (Represents the % composition) NIDUS SeeNote (Normal) Comments: Result: No Nidus [...] SED RATE 75 mm/h (Abnormal) Range: 0-20 18-Aoh-961352:05 CPK TOTAL 47 U/L (Normal) Comments: Precautions*: [...] 1.49 INDETERMINANT > OR = 1.50 SUGGEST TN :20 BMP Comments: COMMENTS: IN AMPrecautions*: NOT [...] 3.5-5.1 NA 141 mmol/L (Normal) Range: 136-145 :20 CBC Comments: COMMENTS: IN AMPrecautions*: NOT APPLICABLE [...] 1.49 INDETERMINANT > OR = 1.50 SUGGEST TN : BC No growth in 5 days. [...] 1.49 INDETERMINANT > OR = 1.50 SUGGEST TN : TSH 1.05 {uIU/mL} (Normal) Comments: Precautions*: NOT APPLICABLE 50 Range: 0.34-4.82 : VIT B12 1503 396 pg/mL (Normal) Comments: Precautions*: NOT APPLICABLE 50 Range: 211-911 Comments: Performed At: [address] [id number] :50 BMP Comments: COMMENTS: STATPrecautions*: NOT APPLICABLE BUN [...] $$ <=0.5 S TRIMETHOPRIM/SULFAMETHOXAZ $$ >=320 R 29-Kmw-595067:15 CULTURE, URINE Comments: COMMENTS: BONEZZIPrecautions*: NOT APPLICABLE [...] COMMENTS: BONEZZIPrecautions*: NOT APPLICABLE :02 (Normal) :02 [facility] Comments: COMMENTS: BONEZZIPrecautions*: NOT APPLICABLE BUN 35 [...] 1.49 INDETERMINANT > OR = 1.50 [place]EST [place] Plan of Care Name Dates Details Instructions [...] bacterial pneumonia Unspecified bacterial pneumonia : Reviewed Safety Instruction Police Officer Letter Indication: Unspecified bacterial pneumonia Hemoptysis : [...] artery disease Coronary artery disease : Reviewed Safety Instruction Police Officer Letter Indication: Coronary artery disease Coronary artery [...] Thrombophlebitis : FOLLOW UP IN 1 WEEK [facility] Indication: Thrombophlebitis folliculitis : Antibiotic Usage Education - Male Indication: folliculitis Other specified viral infection, in conditions classified elsewhere and of unspecified site : IV Indication: Other specified viral infection, in conditions classified elsewhere and of unspecified site BPH : FOLLOW UP IN 1 YEAR Indication: BPH Actinic keratosis : Cryotherapy Indication: Actinic keratosis Planned Observations VITAMIN D, 1, 25-DIHYDROXY (01491)Indication: Vitamin D deficiency On: 8-Dwy-909576:16 Request PSA (PROSTATE SPECIFIC ANTIGEN) (V76.44)Indication: Enlarged prostate with lower urinary tract symptoms On: 6-Jam-435019:16 Request LIPID PANEL (99623)Indication: Hypercholesteremia On: :15 Request METABOLIC PANEL, COMPREHENSIVE (38590)Indication: Hypertension On: :15 Request CBC, PLATELETS & AUT DIFF (81127)Indication: Hypertension On: 0-Lrh-598148:15 Request C-REACT PROT HIGH SENS(hsCRP) (10154)Indication: CRP elevated On: 93-Jdk-610907:01 Request Folate (31169)Indication: Fatigue On: 74-Hqc-602933:55 Request Urinalysis, Office (10241)Indication: Hypertension On: 94-Biv-048969:36 Request URINALYSIS, W/ MICRO (04046)Indication: Hypertension On: :58 Request CBC (Auto) (81217)Indication: Hypertension On: :58 Request Metabolic Panel, Basic (45314)Indication: Hypertension On: :58 Request PSA (PROSTATE SPECIFIC ANTIGEN) (V76.44)Indication: Screening for prostate cancer On: :21 Request Comments: do 07-08 URINALYSIS, W/ MICRO (59825)Indication: Hypertension On: :17 Request TSH (22088)Indication: Anxiety On: :18 Request URINALYSIS, W/ MICRO (99809)Indication: Hypertension On: :18 Request METABOLIC PANEL, COMPREHENSIVE (08444)Indication: Hypertension On: :18 Request LIPID PANEL (67728)Indication: Hypertension On: : Request CBC with auto diff (04998)Indication: Hypertension On: : Request PSA (PROSTATE SPECIFIC ANTIGEN) (V76.44)Indication: Encounter for routine history and physical exam for male On: : Request CBC (Auto) (37321)Indication: Hypertension On: : Request Comments: citrate tubes Metabolic Panel, Basic (82813)Indication: Hypertension On: : Request Methymalonic Acid, Serum (09606)Indication: Thrombocytopenia On: :49 Request Vitamin B-12 (cyanocobalamin) (69065)Indication: Thrombocytopenia On: :49 Request Sed Rate Erythrocyte (04817)Indication: Thrombocytopenia On: :49 Request FIBRINOGEN (15745)Indication: Thrombocytopenia On: 3-Uii-231571:49 Request HELICOBACTER PYLORI ANTIBODY (54208)Indication: Thrombocytopenia On: :49 Request PTT (Activated Partial Thromboplastin Time) (53915)Indication: Thrombocytopenia On: :48 Request PT (Prothrobim Time) (09037)Indication: Thrombocytopenia On: 3-Fsa-566893:48 Request HEPATITIS C ANTIBODY (82173)Indication: Thrombocytopenia On: 9-Zwk-779887:48 Request HEPATITIS B CORE ANTBD-IGG/IGM (22349)Indication: Thrombocytopenia On: 2-Dnc-168009:48 Request HEPATITIS B SURFACE ANTIGEN (93090)Indication: Thrombocytopenia On: 6-Kxx-715912:48 Request HEPATITIS B SURFACE ANTIBODY (58857)Indication: Thrombocytopenia On: 3-Znw-184629:48 Request CBC W/AUTO DIFF WBC (80546)Indication: Thrombocytopenia On: 8-Dpy-749043:41 Request Comments: citrate tube CBC WITH MANUAL DIFF (89071)Indication: Thrombocytopenia On: 63-Urc-26765:42 Request Comments: DRAW IN CITRATE TUBE PLEASErecheck before next follow up in Feb 2014 Metabolic Panel, Basic (86764)Indication: Hypertension On: 8-Rzk-609167:33 Request Comments: copy to [facility] HEPATIC FUNCTION PANEL (84114)Indication: Hypertension On: :33 Request LIPID PANEL (53786)Indication: Hypercholesteremia On: 4-Ngu-979025:32 Request URINALYSIS, W/ MICRO (40479)Indication: Hypertension On: 8-Gsa-820141:32 Request CBC (Auto) (82897)Indication: Hypertension On: 7-Wjk-533453:32 Request PSA (PROSTATE SPECIFIC ANTIGEN) (V76.44)Indication: Encounter for routine history and physical exam for male On: 1-Jqt-194620:02 Request CBC (Auto) (83562)Indication: Hypertension On: 08-Jul-2011 Request Metabolic Panel, Basic (29565)Indication: Hypertension On: 08-Jul-2011 Request URINALYSIS, W/ MICRO (84627)Indication: Hypertension On: 08-Jul-2011 Request URINALYSIS W/O MICRO (64952)Indication: Essential hypertension, malignant On: 0-Vyv-565123:00 Request TSH (02297)Indication: Essential hypertension, malignant On: 9-Hit-537856:00 Request METABOLIC PANEL, COMPREHENSIVE (97759)Indication: Essential hypertension, malignant On: 3-Dse-094568:00 Request CBC WITH MANUAL DIFF (52832)Indication: Essential hypertension, malignant On: 6-Alk-721138:00 Request PSA (PROSTATE SPECIFIC ANTIGEN) (V76.44)Indication: BPH On: 4-Xki-860923:59 Request CBC (Auto) (72088)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, unspecified On: :51 Request PTT (Activated Partial Thromboplastin Time) (90746)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, unspecified On: :50 Request Comments: drawn in office today PT (Prothrobim Time) (42477)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, unspecified On: :50 Request Comments: drawn in office URINALYSIS (61327)Indication: Hypertension On: :38 Request METABOLIC PANEL, BASIC (36441)Indication: Hypertension On: 08-Obz-74549:37 Request Planned Procedures Aerosol Treatment (46019)By: Evonne On: 28-Dec-2017 Rosana Mark DO, DO, Kathleen Comments: no wheeze adn better a/e after treatment COMPUTED TOMOGRAPHY ANGIOGRAPHY OF On: 15-Dec-2017 Intent CHEST FOR PULMONARY EMBOLISM Comments: STAT ORDER PLEASE PHONE RESULTS TO GABY RO AT [phone] (06706)By: Gaby Ro CNP CTA OF CHEST WITHOUT THEN WITH On: 15-Dec-2017 Intent CONTAST AND POST-PROCESSING (09098)By: Gaby Ro CNP COMPUTED TOMOGRAPHY OF CHEST FOR On: 15-Dec-2017 Intent PULMONARY EMBOLISM (07116)By: Marjorie Comments: stat stat stat Gaby DOMINGUEZ Solu -Medrol Injection, 125 mg On: 14-Dec-2017 Intent (J2930)By: Gaby Ro CNP Spirometry (93311)By: Marjorie DOMINGUEZ, On: 14-Dec-2017 Intent Gaby Torrez Comments: Moderate Airway obstruction CHEST XRAY, PA & LATERAL (79992)By: On: 14-Dec-2017 Intent Gaby Ro CNP Aerosol Treatment (82051)By: Marjorie On: 14-Dec-2017 Gaby Mark CNP Radiology - Chest- PA and LatBy: On: 31-Dec-2016 Intent Rosana Davis DO, DO, Comments: fu on pneumonia -- do towards end january Rosana Radiology - Chest- PA and LatBy: On: 04-Jul-2016 Intent Rosana Davis DO, DO, Kathleen Flu Vaccine (Quadrivalent) 84852Ej: On: 12-Nov-2015 Intent Visit, Nurse Comments: Lot #[id number]/30/17ite-L dltd, IMDose prefilled syringegiven by:MORENA VillaltaNVIS and ABN signed US DOPPLER CAROTID BILATERAL On: 22-Aug-2015 Intent (44918)By: Wes Hernandez MD Comments: bilateral PFT - CompleteBy: Wes Hernandez MD On: 24-Jul-2015 Intent CAROTID DUPLEX EXAMINATION On: 24-Jul-2015 Intent (01654)By: Wes Hernandez MD Radiology - Chest- PA and LatBy: On: 19-Mar-2015 Intent Fast DO, Torie A Comments: stat PNEUM VAC ADLT/IMUMNOSPR, SBC/INTRM On: 23-Jan-2015 Intent (69978)By: Parul Rice MD ADMINISTRATION OF PNEUMOCOCCAL On: 23-Jan-2015 Intent VACCINE (G0009)By: Parul Rice MD PNEUM VAC ADLT/IMUMNOSPR, SBC/INTRM On: 23-Jan-2015 Intent (63284)By: Parul Rice MD Flu Vaccine (Quadrivalent) 82052Hh: On: 23-Jan-2015 Intent Parul Rice MD Comments: lot [id number]: 08/23/2015site/route L tarsha, IMamt 0.5mlVIS and ABN signed when applicableChrissie, RUSSELL ELECTROCARDIOGRAM, COMPLETE (ECG) On: 25-Jul-2014 Intent (23961)By: Parul Rice MD Prevnar 13 ([id number])By: Dwayne GARCIA, On: 31-Jan-2014 Intent Parul Edwards Comments: [id number] arm, IMMegan Solu -Medrol Injection, 125 mg On: 31-Aug-2013 Intent (J2930)By: Marjorie DOMINGUEZ Gaby Torrez Comments: [id number], 2mlMegan Eprescribed prescriptions On: 25-Jul-2013 Intent (G8553)By: Parul Rice MD FLU VAC, SPLIT, >3 YEARS, INTRAMUSC On: 04-Nov-2012 Intent ([id number])By: Parul Rice MD Comments: lot [id number] 2014site/route L tarsha, IMamt 0.5mlVIS and ABN signed when applicableChelsea, GAS MAKER HELPER ADMINISTRATION OF INFLUENZA VIRUS On: 04-Nov-2012 Intent VACCINE (G0008)By: Yesy Hagan Pulse Oximetry ([id number])By: Caleb On: 22-Oct-2012 Intent JOHANA Esophagram with a cookie swallow On: 10-Aug-2012 Intent using the tablet.By: Dwayne GARCIA, Comments: see Dr. araseli Edwards EKG ([id number])By: Rosana Davis DO On: 17-Mar-2012 Intent Rosana Davis DO Comments: nsr no acute cgh Eprescribed prescriptions On: 17-Mar-2012 Intent (G8553)By: Rosana Davis DO, DO, Kathleen FLU VAC, SPLIT, >3 YEARS, INTRAMUSC On: 14-Nov-2011 Intent ([id number])By: Polly Sutton Comments: Lot:[id number]:[id number]:prefilledRoute:IMSite:L DltdGiven By:CHARLA signed ADMINISTRATION OF INFLUENZA VIRUS On: 14-Nov-2011 Intent VACCINE (G0008)By: Polly Sutton FLU VAC, SPLIT, >3 YEARS, INTRAMUSC On: 18-Nov-2010 Intent ([id number])By: Wendy Johnson LPN Comments: Lot #[id number]-L arm IMDose prefilledgiven by:Wendy ADMINISTRATION OF INFLUENZA VIRUS On: 18-Nov-2010 Intent VACCINE (G0008)By: Wendy Johnson LPN ADMINISTRATION OF INFLUENZA VIRUS On: 27-Nov-2009 Intent VACCINE (G0008)By: Wendy Johnson LPN Comments: Lot #[id number]-L armDose0.5mlgiven by:ANDRAE Drew FLU VAC, SPLIT, >3 YEARS, INTRAMUSC On: 27-Nov-2009 Intent ([id number])By: Wendy Johnson LPN Doppler Ultrasound OtherBy: Ciesa On: 24-Jul-2009 Intent Gaby DOMINGUEZ Comments: call with lizett acharya, Left leg today FLU VAC, SPLIT, >3 YEARS, INTRAMUSC On: 23-Nov-2008 Intent ([id number])By: Juany Harrison RN ADMINISTRATION OF INFLUENZA VIRUS On: 23-Nov-2008 Intent VACCINE (G0008)By: Juany Harrison RN ADMINISTRATION OF PNEUMOCOCCAL On: 25-Jul-2008 Intent VACCINE (G0009)By: Torie Fletcher DO PNEUM VAC ADLT/IMUMNOSPR, SBC/INTRM On: 25-Jul-2008 Intent ([id number])By: Torie Fletcher DO Comments: Lot #: [id number] date: mount given: 0.5 mlRoute: IMSite given: Left deltoidGiven by: Prateek Chung LPN PET ScanBy: Fast DO, Torie A On: 09-Jul-[address] - ChestBy: Fast DO Torie A On: 23-Jun-2007 Intent Ultrasound - RenalBy: Fast DO, On: 23-Jun-2007 Intent Torie Chandra Bio Z ([id number])By: Chayo Lorenz On: 23-Jun-2007 Intent Spirometry ([id number])By: Dwayne GARCIA, On: 04-Aug-2006 Intent Parul Edwards Pulse Oximetry ([id number])By: Dwayne On: 04-Aug-[address] - Chest (IV Contrast Needed)By: On: 04-Aug-2006 Intent Parul Rice MD Comments: PLAN NEEDLE GUIDED BIOPSY OF NODULE/MASS BY DR KURT Castellonan Injection, up to 50 mg On: 15-May-2006 Intent (J2550)By: Parul Rice MD DESTROY BENIGN/PREMALIG LESION, 1ST On: 13-Nov-2005 Intent ([id number])By: Parul Rice MD Planned Medications INJECTION, METHYLPREDNISOLONE SODIUM SUCCINATE, UP TO 125 MG Ordered: 31-Aug-2013 Pending Gaby Ro CNP INJECTION, METHYLPREDNISOLONE SODIUM SUCCINATE, UP TO 125 MG Ordered: 14-Dec-2017 Pending Gaby Ro CNP Instructions Name Dates Details BMI 31.0-31.9,adult : How to access health information online Indication: BMI 31.0-31.9,adult BMI 31.0-31.9,adult : How to access health information online - Detail Indication: BMI 31.0-31.9,adult BMI 31.0-31.9,adult : Patient Instructions Indication: BMI 31.0-31.9,adult Nonsmoker : How to access health information [...] Patient Instructions Indication: Upper respiratory infection Encounters Office Visit On: 28-Dec-2017 12:49 Encounter Reason: Follow up acute care visit - The patient feeling better since last seen. Patient has been compliant with instructions. Current medication use: no side effects and compliant with dosing regimen.Encounter Diagnosis: Nonsmoker, End: 28-Dec-2017 16:01 BMI 31.0-31.9,adult, Obstructive lung disease, Cough, Bronchitis (490), Abnormal lung sounds [facility] Annotation/Addendum On: 15-Dec-2017 13:36 Encounter Diagnosis: Elevated [...] of lung cancer sees Dr. Lam at [facility] , sees once a year. Saw [...] is transitioning into care from a hospital ([facility] for pneumonia and a sbo) and a [...] The patient does have durable power of assistant attorney general and living will. The patient has noticed lack of energy. Other providers contributing to the patient's care are railroad car loader ([place]yl[place]).Encounter Diagnosis: BMI 30.0-30.9,adult, Nonsmoker, Vision abnormalities, CRP [...] The patient does have durable power of assistant attorney general and living will. The patient has noticed nothing from the geriatic depression scale. O ther providers contributing to the patient's care are railroad car loader. Encounter Diagnosis: Hypertension 401.1 (Renamed from Hypertension [...] (211.3), Lung nodule (518.89), hernia repair right, [id number], Actinic keratosis (702.0), hemmorhiodectomy, BPH, Hypertension 401.1 [...] is keeping close followup with doctors at [facility]- on this-- hedidnt have to danielle [...] get colonsocopy so will send back to [facility] to do, [ADDITIONAL REASON] Cough - The [...] ago-- has appt with heart doctor in [facility] Diagnosis: GERD (530.81), Depression (311.), Unspecified [...] STATUS (V45.81), hernia repair right, tonsillectomy, hemmorhiodectomy, [id number], Actinic keratosis (702.0) [facility] Office Visit On: 12-Nov-2005 12:16 [facility] End: 12-Nov-2005 12:34 Payers MedicareAmerican [place] Tess/Silvestre Vann; a guarantor
--- OUTSIDE RECORDS SUMMARY | 2018-05-13 10:03 | XMS RPT_ITS | Continuity of Care Document ---
:1940 Author Organization [facility] Address [address] [facility] [address] [place] [address] Phone Care Team Providers Name Role Phone Rosana Davis DO Unavailable [facility] Unavailable Gato Dickinson MD Unavailable RUSSELL Rosales [...] diet and exercise.Patient has durable power of research attorney and living will. Status: Active Anxiety [...] (R06.00, 786.09) Comments: Spirometry:Moderate obstructive AW disease.See load blocker Dr Doty for lung cancer s/p surgery [...] month, next appt in [place] in [facility], started HCTD 03/10, stableStable at home:125/60, 15419/60, 120/65 Status: Active Impaired fasting glucose (R73.01, [...] more in winterNo wheezeHAs allergiesHas rescue inhalor, [facility] says COPD and gets Inhalors from there [...] : 08-Aug-2015 End : 07-Sep-2015 Inactive ZOSTAVAX, 74164UDL/0.65ML (Subcutaneous Solution Reconstituted) 1 For Solution once [...] likely pass creat good send report to [facility] Status: Inactive as of 10-Aug-2012 Status: Inactive as of 10-Aug-2012 Diverticulitis (K57.92, 562.11) Comments: on atb pain getting better if pain not all the way resolve ? kidney stones and back to [place] Status: Inactive as of 10-Aug-2012 Dysphagia, unspecified [...] Lung nodule (R91.1, 793.11) Comments: pulm at [facility] - Status: Inactive as of 17-Mar-2012 Malignant [...] few CT scan of chest up at [facility] see Dr. Genaro santana. will send [...] W/WO Contrast Result: Comments: See Note; NOTES: [facility] Imaging Services [address] [address] CTA Chest W/WO Contrast MR#: [id number] Acct: [id number] Name: GEORGE VANN Rep #: [id number] : 1940 M 77 From: Prasanna Lr MD PCP: Rosana Davis DO Status: REG CLI Study: CTA Chest W/WO Contrast Date of Exam: 12/15/17 Exam# [id number] Ordering Dr: Gaby Ro TALENT ACQUISITION PROJECT MANAGER-C STUDY: CTA CHEST REASON FOR EXAM: Male, [...] CC: Gaby Ro NP; Rosana Davis DO [employer] Executive: Signed 14-Dec-2017 Chest PA and Lateral Result: Comments: See Note; NOTES: [facility] Imaging Services [address] [place] [address] Chest PA and Lateral MR#: [id number] Acct: [id number] Name: GEORGE VANN Rep #: [id number] : 1940 M 77 From: Jevon Back MD PCP: Rosana Davis DO Status: REG CLI Study: Chest PA and Lateral Date of Exam: 12/14/17 Exam# [id number] Ordering Dr: Gaby Ro TALENT ACQUISITION PROJECT MANAGER-C STUDY: X-RAY CHEST REASON FOR EXAM: Male, [...] CC: Gaby Ro NP; Rosana Davis DO [employer] Insights Executive: Signed 10-Sep-2017 Cardiology Visit Report Result: Comments: See Note; NOTES: [facility] [address] [place] [address]. [address] [place] [address] OFFICE VISIT Date of Service: 09/10/17 MR#: [id number] Acct: [id number] Name: GEORGE VANN Rep #: [id number] : 1940 Provider: Butch Peres MD Age/Sex: 76/M Location: [facility] Status: Signed HPI HPI Chief Complaint: Follow up visit Details: GEORGE VANN, is a 76 M who presents to [facility] office today for a cardiovascular follow-up. He [...] Pressure 132/8 Intake Visit Reasons: 6 M Nurse Prn Required: No Accompanied by: none Is patient [...] PFSH Medical History Atherosclerotic heart disease of [place] coronary artery without angina pectoris (Chronic) HLD [...] posterior descendi ng artery and CX @ [facility] 07/20/2003; Plan He is status post coronary [...] Visit Report Result: Comments: See Note; NOTES: [facility] Services [address] [place] [address] OFFICE VISIT Date of Service: 03/13/17 MR#: [id number] Acct: [id number] Patient: GEORGE VANN Rep #: [id number] : 1940 Provider: Rossana You Age/Sex: 76/M [place] [facility] [place]: Signed Intake Vital Signs03/13/17 Height 5 ft 10 in 03/13/17 Blood Pressure 140/72 03/13/17 Blood Pressure Location Lt brachial Intake Visit Reasons: 2 wk bp ck per MMM Nurse Prn Required: No Accompanied by: None Is patient [...] Visit Report Result: Comments: See Note; NOTES: [facility] [place] [address] [place] [address] OFFICE VISIT Date of Service: 02/27/17 MR#: [id number] Acct: [id number] Name: GEORGE VANN Rep #: [id number] : 1940 Provider: Rossana You Age/Sex: 76/M [place] [facility] Status: Signed HPI 6 M FU: Details: [...] 02/27/17] Ejection fraction %: 60 to 64 [facility] Medical History Atherosclerotic heart disease of [place] coronary artery without angina pectoris (Chronic) HLD [...] Cardiology Exam Const Appearance: cooperative, no ac [place] distress and well developed Orientation: alert, awake [...] affect Assessment AND Plan 1. Atherosclerosis of [place] coronary artery of [place] heart without angina pectoris I25.10; I25.10; I25.10 CA BG x6: JUAREZ sequentially to Ramus Intermedius and first diagonal, BUD to LAD, SVG to diagonal 2, SVG sequentially to posterior descending artery and CX @ [facility] 07/20/2003; [facility] 01/07/2005. Plan - DILCIA Trinidad [...] prior to saving. 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 He is followed at the [facility] in [place] for surveillance of his lung cancer. ED [...] everal years. He is followed at the [facility] in [place] for surveillance of his lung . cancer. [...] enema. The patient is a greeable to [facility]. He did receive empiric treatment for the [...] cancer status post lobectomy left, treated at [facility], bladder tumor, stable Plan: Observe on telemetry Gentle hydration Gentle soapsuds enema Liquid diet as tolerated, may advance as tolerated Repeat lactic acid Hold parameters placed on blood pressure medication s (hold for systolic blood pressure less than 120) DVT prophylaxis with subcu heparin Plan of care discussed with patient and at bedside who voiced understanding 12/11/16 7421 <Electronic ally signed by Marie Edmond MD> Date Marie Edmond MD Cosigner Signature (if applicable): Date __ CC: Marie Edmond MD; Rosana Davis DO Signed 11-Dec-2016 Emergency Department Summary Result: Comments: See Note; NOTES: [facility] Medical Records Department [address] [place] [address] Emergency Department Summary 12/11/16 1604 MR#: [id number] Acct: [id number] Name: GEORGE VANN Rep #: [id number] : 1940 76 From: Sumanth Franco MD [...] problems, contact your Primary Care Provider. Call [facility] ([phone]) or report to the closest Emergency Room. Call 911 if necessary. 12/11/16 7723 <Electronically signed by Sumanth Franco MD> Date Sumanth Franco MD Cosigner Signature (If Indicated): Date CC: Rosana Davis DO 11-Dec-2016 Abdomen/Pelvis WITH Contrast Result: Comments: See Note; NOTES: [facility] Imaging Services [address] [place] [address] Abdomen/Pelvis WITH Contrast MR#: [id number] Acct: [id number] Name: GEORGE VANN Rep # : [id number] : 1940 M 76 From: Jake Bazzi MD PCP: Rosana Davis DO Status: [facility] Study: Abdomen/Pelvis WITH Contrast Date of Exam: 12/11/16 Exam# [id number] Ordering Dr: Sumanth Franco MD STUDY: CT [...] Jake harry MD at 16:07 EDT Tel [phone], Service support , CC: Rosana Davis DO; Sumanth Franco MD [employer] Insights Executive: Signed 11-Dec-2016 Chest 1 View (Portable) Result: Comments: See Note; NOTES: [facility] Imaging Services [address] [place] [address] Chest 1 View (Portable) MR#: [id number] Acct: [id number] Name: GEORGE VANN Rep #: [id number] : 1940 M 76 From: Jake Bazzi MD PCP: Rosana Davis DO Status: [facility] ER Study: Chest 1 View (Portable) Date of Exam: 12/11/16 Exam# [id number] Ordering Dr: Sumanth Franco MD STUDY: X-RAY [...] Alexis Bazzi MD at 14:43 EDT Tel [phone], Service support , CC: Rosana Davis DO; Sumanth Franco MD [employer] Insights Executive: Signed 21-Aug-2016 Operative Report Result: Comments: See Note; NOTES: [facility] Medical Records Department [address] [place] [address] Operative Report 08/21/16 1138 MR#: [id number] Acct: [id number] Name: YOUNG VANN THELMA Edwards Rep #: [id number] : 1940 75 From: Butch Peres MD PCP: Rosana Davis DO Status: REG CLI Y Location: [facility] Operative Report (Blank) Date of Procedure: [...] and Lateral Result: Comments: See Note; NOTES: [facility] Imaging Services [address] [place] [address] Verdana 4d Chest PA and Lateral MR#: [id number] Acct: [id number] Name: GEORGE VANN p #: [id number] : 1940 M 75 From: Ari Baker MD PCP: Rosana Davis DO Status: REG CLI Study: Chest PA and Lateral Date of Exam: 07/04/16 Exam# [id number] Ordering Dr: Rosana Davis DO STUDY: X-RAY [...] Service support , CC: Rosana Davis DO [employer] Insights Executive: Signed 04-Jul-2016 Chest PA and Lateral Result: Comments: See Note; NOTES: [facility] Imaging Services [address] [place] [address] Verdana 4d Chest PA and Lateral MR#: [id number] Acct: [id number] Name: GEORGE VANN #: [id number] : 1940 M 75 From: Ari Baker MD PCP: Rosana Davis DO Status: REG CLI Study: Chest PA and Lateral Date of Exam: 07/04/16 Exam# [id number] Ordering Dr: Rosana Davis DO ADDENDUM by Ari Baker on 07/04/16 at 2357 RAD/Chest PA and Lateral IMPRESSION: There are no acute findings. Electronically Signed: Ari Baker MD at 23:57 EDT Tel , Service support , 07/05/16 0004 Date cc: Rosana Davis DO * Signed ADDENDUM by Ari Baker on 07/04/16 at 5104 ADDENDUM STUDY: X-RAY CHEST REASON FOR EXAM: [...] tissue structures of the upper abdomen. 07/04/16 2078 Date cc: Rosana ac DO * Signed [...] Service support , CC: Rosana Davis DO [employer] Insights Executive: Signed 08-Feb-2016 Kidney and Bladder Result: Comments: See Note; NOTES: [facility] Imaging Services [address] [place] [address] Verdana 4d Kidney and Bladder MR#: [id number] Acct: [id number] Name: KATYGEORGE Jerry Rep #: [id number] : 1940 75 From: Jake Bazzi MD PCP: Wes Hernandez Status: REG CLI Study: Kidney and Bladder Date of Exam: 02/08/16 Exam# [id number] Ordering Dr: Yandel Murrieta MD STUDY: RENAL [...] Jake Bazzi MD at 15:02 EST Tel [phone], Service support [phone], CC: Yandel Murrieta MD; Wes Hernandez Research [employer] Insights Executive: Signed 01-Feb-2016 6 Minute Walk Test Result: Comments: See Note; NOTES: [facility] Pulmonary Services/Neurology [address] [place] [address] MR#: [id number] Acct: [id number] Name: GEORGE VANN Rep #: [id number] : 1940 75 From: Sigifredo Best DO Referring Dr: Liliam Mcintosh NP Date: Ordering Dr: Marck: Jerry Hugo Location: PSN PSN 6 Minute Walk Test - 6 Minute Walk Test 6 Minute Walk Test: 6 Minute Walk Test P SN:6-Minute Walk Test Start: 01/31/16 12:55 Freq: Status: Active Document 01/31/16 12:55 SFENTON (Rec: 01/31/16 13:03 SFENTON [id number]) 6 Minute Walk Test Date Performed 01/31/16 [...] he will not wear it. Liliam Mcintosh TALENT ACQUISITION PROJECT MANAGER is aware. Initialized on 01/31/16 12:58 - [...] CC: Date Dictated: 02/01/16826 Date Transcribed: 02/01/16826 Research & Insights Executive: Sigifredo Best DO Signed 10-Dec-2015 Operative Report Result: Comments: See Note; NOTES: [facility] Medical Records Department [address] [place] [address] Operative Report MR#: [id number] Acct: [id number] Name: GEORGE VANN Jerry Rep #: [id number] : 1940 75 From: Yandel Murrieta MD PCP: Wes Hernandez Status: [facility] DATE OF SERVICE: 12/07/2015 DATE OF SERVICE: [...] get into the distal ureter with an 8-Algerian flexible ureteroscope and we performed ureteroscopy and [...] up. Yandel Murrieta MD T: NTS JOB: [id number] 12/10/15 0800 <Electronically signed by Yandel Murrieta MD> Date Yandel Murrieta MD Cosigner Signature (If Indicated): Date CC: Yandel Murrieta MD; Wes Hernandez Date Dictated: 0 Date Transcribed: 12/07/151449 Research & Insights Executive: Signed 08-Dec-2015 Emergency Department Summary Result: Comments: See Note; NOTES: [facility] Medical Records Department [address] [place] [address] Emergency Department Summary 12/08/15 1208 MR#: [id number] Acct: [id number] Name: GEORGE VANN Rep #: [id number] : 1940 75 From: Sumanth Franco MD [...] problems, contact your Primary Care Provider. Call [facility] ([phone]) or report to the closest Emergency Room. Call 911 if n ecessary. 12/08/15 4022 <Electronically signed by Sumanth Franco MD> Date Sumanth Franco MD Cosigner Signature (If Indicated): Date __ CC: Wes Hernandez; Valeriy Bravo MD 08-Dec-2015 CTA Chest W/WO Contrast Result: Comments: See Note; NOTES: [facility] Imaging Services [address] [place] [address] Verdana 4d CTA Chest W/WO Contrast MR#: [id number] Acct: [id number] Name: GEORGE VANN Rep #: [id number] : 1940 M 75 From: Mariusz Goodson MD PCP: Wes Hernandez Status: REG ER Study: CTA Chest W/WO Contrast Date of Exam: 12/08/15 Exam# [id number] Ordering Dr: Sumanth Franco MD STUDY: CTA [...] at 15:16 EDT Tel , Service support [phone], CC: Wes Hernandez; Sumanth Franco MD [employer] Insights Executive: Signed 08-Dec-2015 Chest PA and Lateral Result: Comments: See Note; NOTES: [facility] Imaging Services [address] [place] [address] Verdana 4d Chest PA and Lateral MR#: [id number] Acct: [id number] Name: GEORGE VANN #: [id number] : 1940 M 75 From: Poornima Mohan MD PCP: Wes Hernandez Status: REG ER Study: Chest PA and Lateral Date of Exam: 12/08/15 Exam# [id number] Ordering Dr: Sumanth Franco MD STUDY: X-RAY [...] MD at 12:52 EDT , Service support [phone], CC: Wes Hernandez ; Sumanth Farnco MD Research [employer] Insights Executive: Signed 07-Dec-2015 Operative Report Result: Comments: See Note; NOTES: [facility] Medical Records Department [address] [place] [address] Operative Report 12/07/15 1442 MR#: [id number] Acct: [id number] Name: ARIE VANN Rep #: [id number] : 1940 75 From: Yandel Murrieta MD PCP: Wes Hernandez Status: [facility] Y Location: [place] [address] Report of Operation Date of Procedure: 12/07/15 [...] Discharge Instruction Result: Comments: See Note; NOTES: [facility] Medical Records Department [address] [place] [address] Instructions for Home/Discharge Instructions 12/07/15 1300 MR#: [id number] Acct: [id number] Name: GEORGE VANN Rep #: [id number] : 1940 75 From: Yandel Murrieta MD PCP: Wes Hernandez Status: REG [facility] Discharge Diet: Light diet - advance as [...] Single View Result: Comments: See Note; NOTES: [facility] Imaging Services [address] [place] [address] Verdana 4d Abdomen Single View MR#: [id number] Acct: [id number] Name: GEORGE VANN p #: [id number] : 1940 75 From: Gilbert Kyle MD PCP: Wes Hernandez Status: [facility] Study: Abdomen Single View Date of Exam: 12/07/15 Exam# [id number] Ordering Dr: Yandel Murrieta MD STUDY: X [...] at 12:22 EDT Tel , Service support [phone], CC: Yandel Murrieta MD; Wes Hernandez Research [employer] Insights Executive: Signed 29-Aug-2015 Carotid Duplex Ultrasound Result: Comments: See Note; NOTES: [facility] Cardiovascular Services [address] [place] [address] Carotid Duplex Ultrasound 08/28/15 1255 MR#: [id number] Acct: [id number] Name: GEORGE VANN Rep #: [id number] : 1940 74 From: Manny Rodriguez MD Attending Dr: Wes Hernandez Status: REG CLI Ordering Dr: Wes Hernandez Date: 08/28/15 Location: [facility] Sex: M C Admi tted: Reason [...] Dictated: 08/27 1255 Date Transcribed: 08/29/15 1122 Research [employer] Insights Executive: Signed 09-Aug-2015 Echocardiogram Complete Result: Comments: See Note; NOTES: [facility] Cardiovascular Services [address] [place] [address] Echo Complete 08/09/15 1357 MR#: [id number] Acct: [id number] Name: LOUISE GRADYGEORGE Jerry Rep #: [id number] : 1940 74 From: Butch Peres MD [...] d: 08/09/15 1357 Date Transcribed: 08/09/15 1527 Research [employer] Insights Executive: Signed 07-Aug-2015 Chest PA and Lateral Result: Comments: See Note; NOTES: [facility] Imaging Services [address] [place] [address] Verdana 4d Chest PA and Lateral MR#: [id number] Acct: [id number] Name: GEORGE VANN Rep #: [id number] : 1940 M 74 From: Jake Bazzi MD PCP: Wes Hernandez Status: REG CLI Study: Chest PA and Lateral Date of Exam: 08/07/15 Exam# [id number] Ordering Dr: Butch Peres MD STUDY: X-RAY [...] Jake Bazzi MD at 11:08 EDT Tel [phone], Service support [phone], RAD/Chest PA and Lateral IMPRESSION: Stable examination. Electronically Signed: Jake Bazzi MD at 11:08 EDT Tel [phone], Service support [phone], CC: Wes Hernanedz Research [employer] Insights Executive: Signed 24-Jul-2015 Spirometry (18088) Result: 19-Mar-2015 Chest PA and Lateral Result: Comments: See Note; NOTES: [facility] Imaging Services [address] [place] [address] Verdana 4d Chest PA and Lateral MR#: [id number] Acct: [id number] Name: GEORGE VANN Rep #: [id number] : 1940 M 74 From: Peggy Mari MD PCP: Parul Rice MD Status: REG CLI Study: Chest PA and Lateral Date of Exam: 03/19/15 Exam# [id number] Ordering Dr: Torie Fletcher DO STUDY: X-RAY [...] at 19:14 EST Tel , Service support [phone], RAD/Chest PA and Lateral IMPRESSION: Suspect COPD. There appear stable dense right lung nodules. No demonstrated acute cardiopulmonary process. Electronically Signed: Peggy Mari MD at 19:14 EST Tel , Service support [phone], CC: Parul Rice MD; Torie Fletcher DO Research [employer] Insights Executive: Signed 11-Oct-2014 Carotid Duplex Ultrasound Result: Comments: See Note; NOTES: [facility] Cardiovascular Services [address] [place] [address] Carotid Duplex Ultrasound 10/11/14 0906 MR#: [id number] Acct: [id number] Na me: GEORGE VANN Rep #: [id number] : 1940 73 From: Manny Rodriguez MD Attending Dr: Rossana Vieira Status: REG CLI Ordering Dr: Rossana Vieira Date: 10/11/14 Location: [facility] Sex: M C Admitted: Rt. Velocities/BP [...] vertebral artery. Acoustic shadowing. Procedure Carotid Duplex 50332. The exam was diagnostic. Exam performed in [...] Dictated: 10/11/14 0906 Date Transcribed: 10/11/14 1037 Research [employer] Insights Executive: Signed 01-Sep-2014 Esophagus Only Result: Comments: See Note; NOTES: [facility] Imaging Services [address] [place] [address] Radiology Report MR#: [id number] Acct: [id number] Name: GEORGE VANN Rep #: [id number] : 1940 M 73 From: Jake Bazzi MD PCP: Parul Rice MD Status: REG CLI Study: Esophagus Only Date of Exam: 09/01/14 Exam# [id number] Ordering Dr: Gato Willson MD STUDY: X-RAY [...] Jake Bazzi MD at 9:22 EDT Tel [phone], Servi ce support [phone], RAD/Esophagus Only IMPRESSION: Moderate sized hiatal hernia with no evidence of gastroesophageal reflux. 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, 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 Exercise History Comments: Light [...] Area Calculated 2.14 m2 :27 Comments: not [employer] [place] Temperature 98.6 f Pulse 76 /min Comments: [...] Sputum Culture Comments: PATIENT NOT FASTINGPERFORMED BY: [facility] [id number] Result 1 RRF (Normal) Comments: Routine respiratory sana Lower Respiratory Culture Final report (Normal) :06 Metabolic Panel, Comprehensive Comments: PATIENT NOT FASTINGPERFORMED BY: [facility] Dfvect7725 [facility] [id number] ([address]) ALT (SGPT) 11 [iU]/L (Normal) Range: 0-44 [...] 8-27 Glucose 133 mg/dL (Abnormal) Range: 65-99 35-Vny-294988:06 CBC, Platelets & Auto Diff Comments: PATIENT NOT FASTINGPERFORMED BY: [facility] Jxrgji2635 [facility] [id number] ([id number]) Immature Grans (Abs) 0.0 {x10E3/uL} (Normal) Range: [...] 4.14-5.80 WBC 9.5 {x10E3/uL} (Normal) Range: 3.4-10.8 12-Hgg-43262:31 Sputum Culture (85028) Comments: PATIENT NOT FASTINGPERFORMED BY: [facility] [place] 8355970 [facility] [id number] Information: SRC:SP Gram Stain Evaluation GSACC (Normal) Comments: This specimen is of good quality and is acceptable for routinebacterial culture. Result 1 PCF (Normal) Comments: Few gram positive cocciModerate amount of gram variable coccobacilli Epithelial Cells None seen (Normal) White Blood Cells None seen (Normal) 03-Vic-846763:06 D-Dimer (19955) Comments: PATIENT NOT FASTINGPERFORMED BY: [facility] [id number] D-Dimer 0.95 {mg/L_FEU} (Abnormal) Range: 0.00-0.49 Comments: According to the assay commuter train operator's published package insert, anormal (<0.50 mg/L FEU) D-dimer result in conjunction with a non-highclinical probability assessment, excludes deep vein thrombosis (D VT)and pulmonary embolism (PE) with high sensitivity. .D-dimer values increase with age and this can make VTE exclusion ofan older pop ulation difficult. To address this, the [employer], based on best available evidence [...] 0.80 mg/L FEU. :58 Lipid Profile Comments: [facility] [id number] [place], [place], [address] VLDL 21 mg/dL (Normal) Range: 5-40 LDL [...] mg/dL High Risk :58 Liver Profile Comments: [facility] [id number] [place], [place], [address] D BILI 0.12 mg/dL (Normal) Range: 0.00-0.30 T BILI 0.50 mg/dL (Normal) Range: 0.20-1.00 ALT 17 U/L (Normal) Range: 16-61 ALK P 71 U/L (Normal) Range: 45-117 AST 16 U/L (Normal) Range: 15-37 GLOB 3.8 g/dL (Normal) Range: 2.2-4.2 ALB 3.6 g/dL (Normal) Range: 3.2-5.0 T PROT 7.4 g/dL (Normal) Range: 6.4-8.2 6-Svg-049661:32 LACTATE (LACTIC ACID) (70282) Comments: PATIENT NOT FASTINGPERFORMED BY: [facility] Trlgjn1877 [facility] [id number] Lactic Acid, Plasma 12.4 mg/dL (Normal) Range: 4.8-25.7 70-Ccy-019738:30 Lactic Acid Comments: Yes/No query for Sepsis Lactate Rule [facility] [id number] [place], [id number] LACTIC ACID 2.3 mmol/L (Abnormal) Range: 0.4-2.0 Comments: Critical Result(s) Called at: 15:11:26 12/11/2016 by:Christen Moralez to [facility] 86-Lmw-176994:00 Basic Metabolic Profile (BMP) Comments: [facility] Uwpspcbkud[address] [place], [place], [id number] GAP 10 (Normal) Range: 5-15 CO2 27.0 [...] 126 mg/dLsuggests DIABETES MELLITUS per A.D.A. criteria. 07-Gvl-133518:00 CBC W/Diff, Automated Comments: [facility] Bydbgkogxz64[address]. [place], [id number] Absolute Lymph 2.89 {X10_3/ul} (Normal) Range: 0.83-4.51 [...] 4.6-6.2 WBC 9.9 K/mm3 (Normal) Range: 4.4-11.0 25-Dqf-313279:15 Cytology, Body Fluid / CSF Comments: Specimen Source: [facility] [address] [place], [place], [address] CYTOLOGY,BF/CSF SEE PATHOLOGY REPORT Comments: Spec[facility] (Normal) 31-Tqm-040415:15 CYTOSPIN ON FLUID See Note (Normal) Comments: [address] [place], [place], [id number] Comments: Patient: GEORGE VANN : 1940 (75/M) Acct Num: [id number] Phys: Glenny GARCIA,Yandel Warren Unit Num: [id number] Loc: LABSPEC Specimen: [id number] Received: 08/15/16 - 1126 Spec Type: CYSPIN FL TISSUES TISSUES: COMMENT Correlation with clinical findings and appropriate follow up are necessary. Please make reference to previous cytology ([id number]) urine for cytology with diagnosis of rare atypical urothelial noted and specimen ([id number]) bladder tumor, TUR with diagnosis of papillary urothelial carcinoma. CYTOLOGY GROSS Received is 35 ml of clear gol d fluid labeled with the patient's name and and designated per the requisition as urine. Submitted for cytology preparation. / 08/15/16 TC:5 CPT: 80965 CYTOLOGY STUDY Slides are reviewe d. DIAGNOSIS CYTOLOGY Urine for cytology (cytospin): A few clusters of atypical urothelial cells noted. See comment. SJ:lorenzo 08/18/16 HEADER OPERATION: Not noted PRE-OP DIAGNO SIS: Hematuria R31.9 TISSUE SUBMITTED: Urine for cytology Signed Wes Morrow 08/18/16 <signature on file> 22-Owl-76184:28 BNP,B-Type NATRIURETIC PEPTIDE Comments: Order Date: 08/14/16Order Info: [id number] - *Brain Natriuretic Peptide [facility] Hktjhtmhrc[address] [place], [address] B-TYPE EDGAR PEP 45.3 pg/mL (Normal) Range: 0-100 82-Ejm-95975:20 Lipid Profile Comments: Order Date: 08/08/16Order Info: [id number] - *Hepatic Function PanelOrder Date: 08/08/16Order Info: [id number] - *Lipid Profile CC PCPComments: 12 hours fasting, may have water.[facility] La orq[address]wy[address] [place], [address] VLDL 39 mg/dL (Normal) Range: [...] 200-240 mg/dL Borderline >240 mg/dL High Risk 89-Axq-22095:20 Liver Profile Comments: Order Date: 08/08/16Order Info: [id number] - *Hepatic Function PanelOrder Date: 08/08/16Order Info: [id number] - *Lipid Profile CC PCPComments: 12 hours fasting, may have water.[facility] La scrzsgbv[address] [place], [place], [address] D BILI 0.13 mg/dL (Normal) Range: 0.00-0.30 T BILI 0.70 mg/dL (Normal) Range: 0.20-1.00 ALT 18 U/L (Normal) Range: 12-78 ALK P 67 U/L (Normal) Range: 45-117 AST 12 U/L (Abnormal) Range: 15-37 GLOB 3.3 g/dL (Normal) Range: 2.3-3.5 ALB 3.7 g/dL (Normal) Range: 3.4-5.0 T PROT 7.0 g/dL (Normal) Range: 6.4-8.2 34-Wfb-118290:45 Basic Metabolic Profile (BMP) Comments: [facility] Sttvthzjtw[address] [place], [place], [address] GAP 0 (Abnormal) Range: 5-15 CO2 30.0 [...] <126 mg/dLsuggests IMPAIRED HOMEOSTASIS per A.D.A. criteria. 44-Jrz-117820:45 CBC W/Diff, Automated Comments: [facility] Rjetbrevuu34[address] [place], [place], [address] Absolute Lymph 1.38 {X10_3/ul} (Normal) Range: 0.83-4.51 [...] 4.6-6.2 WBC 11.1 K/mm3 (Abnormal) Range: 4.4-11.0 19-Pok-454209:45 Troponin-I Comments: 'TROP' Serial specimen #1, #2, #3, or #4: [facility] Yqkwifvmde13[address] [place], [place], [address] TROPONIN-I < 0.02 ng/mL Comments: TROPONIN-I EXPECTED VALUES <0.05 NEGATIVE 0.06 - 0.59 AT RISK OF RI > OR = 0.60 SUGGEST RI (Normal) BLADDER BX/FULGURATION See Note (Normal) Comments: [facility] Ttvhjymrxc[address] [place], [address] :08 Comments: Patient: GEORGE VANN : 1940 (75/M) Acct Num: [id number] Phys: Glenny GARCIA,Urban Unit Num: [id number] Loc: [facility] Specimen: [id number] Received: 12/07/151513 Spec Ty pe: BLADDER BX [...] one cassette. / SJ:rg 12/10/15 TC:0 CPT: 32303 x2 HEADER OPERATION: Cystoscopy, left ureteroscopy PRE-OP [...] summary is in compliance with College of La[place] Pathology (CAP) Cancer Protocols Checklist and [place] Joint Committee on Cancer (AJCC), Staging Manual, 7t h Ed. B. Bladder tumor trigone, TUR: Fragments of urothelial mucosa with mild epithelial atypia. Negative for malignancy in the submitted specimen. See comment. SJ:lorenzo 12/11/15 Signed Wes Morrow 12/11/15 <signature on file> :37 Lipid Profile Comments: Order Date: 10/16/15OV Order #: [id number] [facility] Medical Center Jbdzoieccc83[address] [place], [place], [address] VLDL 31 mg/dL (Normal) Range: 5-40 LDL [...] Profile Comments: Order Date: 10/16/15OV Order #: [id number] F[facility] Medical Center Qrxpimxguv6736 [place], [address] D BILI 0.15 mg/dL (Normal) Range: 0.00-0.30 T BILI 0.60 mg/dL (Normal) Range: 0.20-1.00 ALT 17 U/L (Normal) Range: 12-78 ALK P 60 U/L (Normal) Range: 50-136 AST 13 U/L (Abnormal) Range: 15-37 GLOB 3.4 g/dL (Normal) Range: 2.3-3.5 ALB 3.6 g/dL (Normal) Range: 3.4-5.0 T PROT 7.0 g/dL (Normal) Range: 6.4-8.2 :18 SED RATE ERYTHROCYTE Comments: PATIENT WAS FASTINGPERFORMED BY: Rightware OyGallup Indian Medical CenterNqeozr2604 [facility] [id number] BY: [address] [id number] (43633) Sedimentation Rate-Westergren 4 mm/h (Normal) Range: 0-30 :18 RHEUMATOID FACTOR-QUANT Comments: PATIENT WAS FASTINGPERFORMED BY: Rightware OyCarl [place] 6638070 [facility] [id number] BY: Vamo[address] [id number] (27845) RA Latex Turbid. 4.8 {IU/mL} (Normal) Range: 0.0-13.9 :18 C-REACTIVE PROTEIN (65632) Comments: PATIENT WAS FASTINGPERFORMED BY: Rightware OyAnn Klein Forensic CenterFyqhrv1728 [facility] [id number] BY: [address] [id number] C-Reactive Protein, Quant 12.2 mg/L (Abnormal) Range: 0.0-4.9 :18 PSA (Medicare - G0103) Comments: PATIENT WAS FASTINGPERFORMED BY: [employer] OyAnn Klein Forensic CenterZpfuuz5755 [facility] [id number] BY: [address] [id number] (78501) Prostate Specific Ag, 2.6 ng/mL (Normal) Range: 0.0-4.0 Serum Comments: Dariusz ECLIA methodology. .According to the [place] Urological Association, Serum PSA shoulddecrease and remain [...] AND FOLATES Comments: PATIENT WAS FASTINGPERFORMED BY: Articulate TechnologiesUofL Health - [facility] [id number] BY: Rightware OyAshley V[place] [id number] (09047) Folate (Folic Acid), Serum >20.0 ng/mL (Normal) Comments: A serum folate concentration of less than 3.1 ng/mL isconsidered to represent clinical deficiency. Vitamin B12 543 pg/mL (Normal) Range: 211-946 :18 VITAMIN D, 1, 25-DIHYDROXY Comments: PATIENT WAS FASTINGPERFORMED BY: Srd IndustriesYadkin Valley Community Hospital [id number] BY: Rightware Oy[address] [id number] (59735) Calcitriol(1,25 di-OH Vit D) 35.3 pg/mL (Normal) Range: 19.9-79.3 :18 TSH (THYROID STIMULATING Comments: PATIENT WAS FASTINGPERFORMED BY: Srd IndustriesYadkin Valley Community Hospital [id number] BY: Rightware Oy[address] [id number] HORMONE) (94248) TSH 1.680 {uIU/mL} (Normal) Range: 0.450-4.500 :18 LIPID PANEL (52477) Comments: PATIENT WAS FASTINGPERFORMED BY: aitainmentDublin [place] [id number] BY: Rightware Oy[address] [id number] LDL/HDL Ratio 1.8 {ratio_units} (Normal) Range: 0.0-3.6 [...] METABOLIC PANEL, Comments: PATIENT WAS FASTINGPERFORMED BY: [employer] Soyzyz8741 [facility] [id number] BY: Rightware Oy[address] [id number] [facility] (90475) ALT (SGPT) 10 [iU]/L (Normal) Range: 0-44 [...] Comments: PATIENT WAS FASTINGPERFORMED BY: CB [facility] Ixqndm5756 [facility] [id number] BY: BN [facility] Owxfxgyxeo2895 [facility] [id number] Information: [id number] (14244) Immature Grans (Abs) 0.0 {x10E3/uL} (Normal) Range: [...] (Normal) Range: 3.4-10.8 :10 HgA1C , Office (95793) HgA1C , Office 5.6 % (Normal) Range: 4.6 - 7.1 :55 Lipid Profile Comments: [facility] Vqywbbzuqd[address] [place], [place], [address] VLDL 33 mg/dL (Normal) Range: 5-40 LDL [...] mg/dL High Risk :55 Liver Profile Comments: [facility] Yvuxlsaiyk[address] [place], [place], [address] D BILI 0.18 mg/dL (Normal) Range: 0.00-0.30 T BILI 0.50 mg/dL (Normal) Range: 0.20-1.00 ALT 15 U/L (Normal) Range: 12-78 ALK P 85 U/L (Normal) Range: 50-136 AST 13 U/L (Abnormal) Range: 15-37 GLOB 3.5 g/dL (Normal) Range: 2.3-3.5 ALB 3.5 g/dL (Normal) Range: 3.4-5.0 T PROT 7.0 g/dL (Normal) Range: 6.4-8.2 :55 HgA1C , Office (70266) HgA1C , Office 5.5 % (Normal) Range: 4.6 - 7.1 5-Tot-888214:23 URINE MONTSE CULTURE-IDENTIFICATN Comments: PATIENT NOT FASTINGPERFORMED BY: VamoBrandy [place] 8355970 [facility] [id number] Information: [id number] (76121) Result 1 NG36 (Normal) Comments: No growth in 36 - 48 hours. Urine Culture,Comprehensive Final report (Normal) :31 Urinalysis, Office (00400) UA - LEUKOCYTE ESTERASE Trace (Normal) UA [...] MONTSE CULTURE-IDENTIFICATN Comments: PATIENT NOT FASTINGPERFORMED BY: [employer] Oy Elpoqs4897 [facility] [id number] Information: [id number] (89831) Result 1 MUG (Normal) Comments: Mixed urogenital flora1,000 Colonies/mL Urine Culture,Comprehensive Final report (Normal) :03 Urinalysis, Office (04492) UA - LEUKOCYTE ESTERASE Trace (Normal) UA - NITRITE Negative (Normal) URINE UROBILINGN DEEPALI TIMED Normal mg/dL (Normal) UA - PROTEIN Negative mg/dL (Normal) UA - PH 5 (Abnormal) UA - BLOOD Hemolyzed Trace (Normal) UA - SPECIFIC GRAVITY 1.030 (Abnormal) UA - KETONES Negative mg/dL (Normal) UA - BILIRUBIN Negative (Normal) UA - GLUCOSE Negative (Normal) :25 Urinalysis, Office (73786) UA - LEUKOCYTE ESTERASE Small (Normal) UA - NITRITE Negative (Normal) URINE UROBILINGN DEEPALI TIMED Normal mg/dL (Normal) UA - PROTEIN 100 mg/dL (Normal) UA - PH 6 (Abnormal) UA - BLOOD Hemolyzed Moderate (Normal) UA - SPECIFIC GRAVITY 1.030 (Abnormal) UA - KETONES Negative mg/dL (Normal) UA - BILIRUBIN Negative (Normal) UA - GLUCOSE Negative (Normal) :38 LIPID PANEL (28834) Comments: copy to Dr. peres; PATIENT WAS FASTINGPERFORMED BY: [employer]6370 [address] [facility] [id number] LDL/HDL Ratio 1.6 {ratio_units} (Normal) Range: 0.0-3.6 [...] 130 mg/dL (Normal) Range: 100-199 :38 CALCIFIDIOL (18087) VIT D 25 Comments: PATIENT WAS FASTINGPERFORMED BY: [employer]6370 [facility]eFre[facility] [id number] Vitamin D, 25-Hydroxy 35.1 ng/mL (Normal) Range: 30.0-100.0 Comments: Vitamin D deficiency has been defined by the [place] ofMedicine and an Endocrine Society practice guideline as alevel of serum 25-OH vitamin D less than 20 ng/mL (1,2).The Endocrine Society went on to further define vitamin Dinsufficiency as a level between 21 and 29 ng/mL (2).1. IOM ([place] of Medicine). 2010. Dietary reference intakes for calcium and D. [place]: The National Academies Press.2. Tammy MF, [place], Arnav DANIELLE, et al. Evaluation, treatment, and prevention of vitamin D deficiency: an Endocrine Society clinical practice guideline. JCEM. 2010; 96(7):1911-30. :38 TSH (74605) Comments: PATIENT WAS FASTINGPERFORMED BY: SolveBoard6370 [facility] [id number] TSH 2.630 {uIU/mL} (Normal) Range: 0.450-4.500 :38 METABOLIC PANEL, COMPREHENSIVE Comments: PATIENT WAS FASTINGPERFORMED BY: [employer] OyAnn Klein Forensic CenterVnshsp2825 [facility] [id number] (11690) ALT (SGPT) 11 [iU]/L (Normal) Range: 0-44 [...] auto diff Comments: PATIENT WAS FASTINGPERFORMED BY: [employer] OyAnn Klein Forensic CenterYidxib1399 [facility] [id number] Information: [id number] (02690) Immature Grans (Abs) 0.0 {x10E3/uL} (Normal) Range: [...] 4.14-5.80 WBC 5.9 {x10E3/uL} (Normal) Range: 3.4-10.8 19-Zjx-78225:11 Lipid Profile Comments: Test performed at:[facility] Mcrilakbcw[address] [place], [place] [address] VLDL 23 mg/dL (Normal) Range: 5-40 LDL [...] Risk :11 Liver Profile Comments: Test performed at:[facility] [address] [place] [address] D BILI 0.19 mg/dL (Normal) Range: 0.00-0.30 T BILI 0.90 mg/dL (Normal) Range: 0.20-1.00 ALT 16 U/L (Normal) Range: 12-78 ALK P 74 U/L (Normal) Range: 50-136 AST 14 U/L (Abnormal) Range: 15-37 GLOB 3.5 g/dL (Normal) Range: 2.3-3.5 ALB 3.6 g/dL (Normal) Range: 3.4-5.0 T PROT 7.1 g/dL (Normal) Range: 6.4-8.2 :19 Basic Metabolic Profile (BMP) Comments: Test performed at:[facility] [address] [place] [address] GAP 5 (Normal) Range: 5-15 [...] Blood Cnt No Diff Comments: Test performed at:[facility] Xjoaojeesy9015 [facility] [place] [address] MPV 10.2 fL (Normal) Range: [...] PSA,Total - Annual Screen Comments: Test performed at:[facility] Pwlpdjijnk20[address] [place] [address] PSA,TOT SCREEN 2.34 ng/mL (Normal) Range: 0.00-4.00 Comments: This test was performed using the TPSA assay method for theLifeScribe chemistry system. Values obtained with differentassay methods cannot be used interchangably.When changing PSA assays in the course of monitoring apatient, additional sequential testing should be carriedout to confirm baseline values. 0-Kle-100777:32 CBC With Differential/Platelet Comments: PATIENT WAS FASTINGPERFORMED BY: CB [facility] Edzhfb1465 [facility] [id number] BY: BN [facility] [address] [id number] Immature Grans (Abs) 0.0 {x10E3/uL} Range: 0.0-0.1 [...] SPRCS (Normal) Comments: PATIENT WAS FASTINGPERFORMED BY: SmartEx[employer]e [employer] [facility] [id number] BY: [address] [id number] 2:32 Comments: Non reactive HCV antibody screen is consistent with no HCV infection,unless recent infection is suspected or other evidence exists toindicate HCV infection. Fibrinogen Antigen 509 mg/dL (Abnormal) Comments: PATIENT WAS FASTINGPERFORMED BY: [employer] Lsaocl7748 [facility] [id number] BY: [address] [id number] 2:32 Range: 180-350 H. pylori, IgG Abs <0.9 U/mL (Normal) Comments: PATIENT WAS FASTINGPERFORMED BY: [employer] Qflw[address] [place] [address] [id number] BY: [address] [id number] 2:32 Range: 0.0-0.8 Comments: Negative <0.9 Indeterminate 0.9 - 1.0 Positive >1.0 HBsAg Screen Negative (Normal) Comments: PATIENT WAS FASTINGPERFORMED BY: [address] [id number] BY: [address] [id number] 2:32 :32 HBV Core Ab, IgG/IgM Comments: PATIENT WAS FASTINGPERFORMED BY: [address] [id number] BY: [address] [id number] Diff Hep B Core Ab, Tot Negative (Normal) Hep B Core Ab, IgM Negative (Normal) :32 HCV Ab w/Rflx to Comments: PATIENT WAS FASTINGPERFORMED BY: [address] [id number] BY: [address] [id number] Verification HCV Ab 0.1 {s/co_ratio} (Normal) Range: 0.0-0.9 :32 Hep B Surface Ab Comments: PATIENT WAS FASTINGPERFORMED BY: [address] [id number] BY: [address] [id number] Hep B Surface Ab, Qual Non Reactive Comments: Non Reactive: Inconsistent with immunity, less than 10 mIU/mL Reactive: Consistent with immunity, greater than 9.9 mIU/mL (Normal) Methylmalonic Acid, 187 nmol/L Comments: PATIENT WAS FASTINGPERFORMED BY: [address] [id number] BY: [address] [id number] :32 Serum (Normal) Range: 0-378 Comments: Please note reference interval change :32 Prothrombin Time (PT) Comments: PATIENT WAS FASTINGPERFORMED BY: [place] 2090170 [facility] [id number] BY: [address] [id number] Prothrombin Time 10.2 {sec} (Normal) Range: 9.1-12.0 INR 1.0 (Normal) Range: 0.8-1.2 Comments: Reference interval is for non-anticoagulated patients. . Suggested INR therapeutic range for Vitamin K anta gonist therapy: Standard Dose (moderate intensity therapeutic range): 2.0 - 3.0 Higher intensity therapeutic range 2.5 - 3.5 :32 PTT, Activated Comments: PATIENT WAS FASTINGPERFORMED BY: [address] [id number] BY: [address] [id number] aPTT 29 {sec} (Normal) Range: 24-33 Comments: This test has not been validated for monitoring unfractionated heparintherapy. aPTT-based therapeutic ranges for unfractionated heparintherapy have not been established. For general guidelines onHeparin monitoring, refer to the [facility] Directory of Services. Sedimentation 8 mm/h (Normal) Comments: PATIENT WAS FASTINGPERFORMED BY: [place] 2090170 [facility] [id number] BY: [address] [id number] :32 Rate-Westergren Range: 0-30 Vitamin B12 457 pg/mL (Normal) Comments: PATIENT WAS FASTINGPERFORMED BY: [address] [id number] BY: [address] [id number] :32 Range: 211-946 :12 Basic Metabolic Profile (BMP) Comments: Test performed at:[facility] Yetmjxcgjw89[address] [place] [address] GAP 4 (Abnormal) Range: 5-15 [...] :12 CBC W/Diff, Automated Comments: Test performed at:[facility] Nqglilixjn36[address] [address] Absolute Lymph 1.66 {X10_3/ul} (Normal) Range: 0.83-4.51 [...] 4.4-11.0 :12 Lipid Profile Comments: Test performed at:[facility] [address] [place] [address] VLDL 25 mg/dL (Normal) Range: [...] Risk :12 Liver Profile Comments: Test performed at:[facility] Toqhirhdov3558 [facility] [place] [address] D BILI 0.19 mg/dL (Normal) [...] How was Urine Obtained? CLEAN CATCHTest performed at:[facility] Egafgtzwbl0473 [facility] [place] [address] MUCUS, URINE 1+ {/hpf} (Normal) [...] performed using the TPSA assay method for [employer] chemistry system. Values obtained with differentassay methods [...] CHOL 148 mg/dL (Normal) Comments: <200 mg/dL Nrjyleldn436-278 mg/dL Borderline>240 mg/dL High Risk :09 LIVER BID 0.16 mg/dL (Normal) Range: 0.00-0.30 BIT 0.70 mg/dL (Normal) Range: 0.00-1.00 ALT 21 U/L (Normal) Range: 12-78 ALK 66 U/L (Normal) Range: 45-117 AST 17 U/L (Normal) Range: 15-37 ALB 3.8 g/dL (Normal) Range: 3.4-5.0 TPROT 7.1 g/dL (Normal) Range: 6.4-8.2 :46 PSA (PROSTATE SPECIFIC Comments: screening; PATIENT WAS FASTINGPERFORMED BY: [employer] Olcxvg4245 [facility] [id number] ANTIGEN) (V76.44) Prostate Specific Ag, 1.9 ng/mL (Normal) Range: 0.0-4.0 Serum Comments: OperatixIA methodology. .According to the [place] Urological Association, Serum PSA shoulddecrease and remain [...] of malignant disease. :46 URINALYSIS, W/ MICRO (73008) Comments: PATIENT WAS FASTINGPERFORMED BY: [employer]6370 [facility] [id number] Microscopic Examination See below: (Normal) Nitrite, Urine Negative (Normal) Urobilinogen,Semi-Qn 0.2 mg/dL (Normal) Range: 0.0-1.9 Bilirubin Negative (Normal) Occult Blood Negative (Normal) Ketones Trace (Abnormal) Glucose Negative (Normal) Protein Trace (Normal) Appearance Clear (Normal) WBC Esterase Trace (Abnormal) Urine-Color Yellow (Normal) pH 5.5 (Normal) Range: 5.0-7.5 Specific [place] 1.026 (Normal) Range: 1.005-1.030 :46 MICROALBUMIN: CREATININE RATIO Comments: PATIENT WAS FASTINGPERFORMED BY: SmartExposeeAnn Klein Forensic CenterGgaxtq1628 [facility] [id number] (59585) AND (87716) Microalb/Creat Ratio 20.0 {mg/g_creat} (Normal) Range: 0.0-30.0 Creatinine, Urine 307.4 mg/dL (Normal) Range: 22.0-328.0 Microalbumin, Urine 61.5 ug/mL (Abnormal) Range: 0.0-17.0 :46 METABOLIC PANEL, COMPREHENSIVE Comments: PATIENT WAS FASTINGPERFORMED BY: [employer] Oy Ehwlsl3468 [address] [facility] BranchSpaceport.ioYadkin Valley Community Hospital [id number] (90583) ALT (SGPT) 13 [iU]/L (Normal) Range: 0-44 [...] mg/dL (Normal) Range: 65-99 :46 LIPID PANEL (68454) Comments: send results to Dr Peguero; PATIENT WAS FASTINGPERFORMED BY: SolveBoard6370 [address] [facility] BranchSpaceport.ioYadkin Valley Community Hospital [id number] LDL Cholesterol Calc 71 mg/dL (Normal) Range: 0-99 LDL/HDL Ratio 1.7 {ratio_units} (Normal) Range: 0.0-3.6 VLDL Cholesterol Sree 23 mg/dL (Normal) Range: 5-40 HDL Cholesterol 43 mg/dL (Normal) Comments: According to ATP-III Guidelines, HDL-C >59 mg/dL is considered anegative risk factor for CHD. Triglycerides 113 mg/dL (Normal) Range: 0-149 Cholesterol, Total 137 mg/dL (Normal) Range: 100-199 88-Hlz-94024:46 CBC WITH MANUAL DIFF Comments: PATIENT WAS FASTINGPERFORMED BY: [facility]6370 [facility] [id number] Information: [id number] (14749) Immature Grans (Abs) 0.0 {x10E3/uL} (Normal) Range: [...] 5.3 {x10E3/uL} (Normal) Range: 4.0-10.5 :46 TSH (57218) Comments: PATIENT WAS FASTINGPERFORMED BY: [facility]6370 [facility] [id number] TSH 1.790 {uIU/mL} (Normal) Range: 0.450-4.500 :46 Microscopic Examination Comments: PATIENT WAS FASTINGPERFORMED BY: [facility]6370 [facility] [id number] Bacteria Few (Normal) Mucus Threads Present (Normal) Crystal Type Calcium Oxalate (Normal) Crystals Present (Abnormal) Epithelial Cells (non renal) 0-10 {/hpf} (Normal) Range: 0 - 10 RBC 0-3 {/hpf} (Normal) Range: 0 - 3 WBC 0-5 {/hpf} (Normal) Range: 0 - 5 :26 MONTSE CULTURE-OTHER (03367) Comments: PATIENT NOT FASTINGPERFORMED BY: [place] 2090170 [facility] [id number] Information: SRC:THRT [id number] Result 1 RRF (Normal) Comments: Routine respiratory sana Upper Respiratory Culture Final report (Normal) 6-Doi-636418:09 Rapid Strep Test, Office (46394) Rapid Strep Test, Office Negative (Normal) 24-Cpt-668261:04 Microscopic Examination Comments: PATIENT NOT FASTINGPERFORMED BY: [facility]6370 [facility] [id number] Bacteria Few (Normal) Mucus Threads Present (Normal) Crystal Type Calcium Oxalate (Normal) Crystals Present (Abnormal) Epithelial Cells (non renal) None seen {/hpf} (Normal) Range: 0 - 10 RBC 4-10 {/hpf} (Abnormal) Range: 0 - 3 WBC 0-5 {/hpf} (Normal) Range: 0 - 5 73-Gwu-583396:04 PSA (PROSTATE SPECIFIC Comments: PATIENT NOT FASTINGPERFORMED BY: [facility]6370 [facility] [id number] ANTIGEN) (V76.44) Prostate Specific Ag, 1.6 ng/mL (Normal) Range: 0.0-4.0 Serum Comments: Dariusz Domain MediaIA methodology..According to the [place] U[employer] Association, Serum PSA shoulddecrease and remain at undetectable levels after radicalprostatectomy. The AUA defines biochemical recurrence a s an initialPSA value 0.2 ng/mL or greater followed by a subsequent confirmatoryPSA value 0.2 ng/mL or greater.Values obtained with different assay methods or kits cannot be usedinterchangeably. Results cannot be interpreted as absolute evidenceof the presence or absence of malignant disease. :04 URINALYSIS (73807) Comments: PATIENT NOT FASTINGPERFORMED BY: [employer] Ruzfth1937 [facility] BranchSpaceport.ioYadkin Valley Community Hospital [id number] Information: [id number] Microscopic Examination See below: (Normal) Bilirubin Negative (Normal) Glucose Negative (Normal) Ketones Trace (Abnormal) Nitrite, Urine Negative (Normal) Occult Blood Trace (Abnormal) Urobilinogen,Semi-Qn 0.2 mg/dL (Normal) Range: 0.0-1.9 Protein Trace (Normal) WBC Esterase Negative (Normal) Appearance Clear (Normal) pH 6.0 (Normal) Range: 5.0-7.5 Urine-Color Yellow (Normal) Specific [place] 1.028 (Normal) Range: 1.005-1.030 :04 CBC (Auto) ([id number]) Comments: PATIENT NOT FASTINGPERFORMED BY: SmartExposee [id number] [facility] [id number] Platelets 139 {x10E3/uL} (Abnormal) Range: 140-415 Hematocrit 41.1 % (Normal) Range: 36.0-50.0 MCH 30.0 pg (Normal) Range: 27.0-34.0 MCHC 33.8 g/dL (Normal) Range: 32.0-36.0 MCV 89 fL (Normal) Range: 80-98 RDW 13.6 % (Normal) Range: 11.7-15.0 Hemoglobin 13.9 g/dL (Normal) Range: 12.5-17.0 RBC 4.64 {x10E6/uL} (Normal) Range: 4.10-5.60 WBC 5.4 {x10E3/uL} (Normal) Range: 4.0-10.5 85-Chv-177898:04 Metabolic Panel, Basic Comments: PATIENT NOT FASTINGPERFORMED BY: [facility] Mutney2851 [facility] [id number] ([id number]) Calcium, Serum 9.9 mg/dL (Normal) Range: 8.6-10.2 [...] Glucose, Serum 97 mg/dL (Normal) Range: 65-99 40-Rss-50152:10 BMP Comments: Please Note: TROPONIN REFERENCE RANGE [...] 3.5-5.1 NA 138 mmol/L (Normal) Range: 136-145 60-Lzn-37688:10 CBCD EOS 1 % (Normal) Range: 0-5 [...] 5 <or= 4AMI > 5 > 4 96-Cpf-39549:10 TROPONIN-I < 0.02 ng/mL (Normal) Comments: Please Note: TROPONIN REFERENCE RANGE CHANGEEffective JANUARY 23, 2009. Comments: TROPONIN-I EXPECTED VALUES <0.05 NEGATIVE0.06 - 0.59 AT RISK OF RI> OR = 0.60 SUGGEST RI 58-Hxt-76936:25 CKMB Comments: Please Note: TROPONIN REFERENCE RANGE CHANGEEffective JANUARY 23, 2009. CPK TOTAL 43 U/L (Normal) Range: 35-232 CPKMB < 0.5 ng/mL (Normal) Range: 0.0-5.0 Comments: CK-MB and RI Interpretation MB Relative IndexNon-AMI <or= 5 NAIndeterminate > 5 <or= 4AMI > 5 > 4 20-Vic-86032:25 TROPONIN-I < 0.02 ng/mL (Normal) Comments: Please Note: TROPONIN REFERENCE RANGE CHANGEEffective JANUARY 23, 2009. Comments: TROPONIN-I EXPECTED VALUES <0.05 NEGATIVE0.06 - 0.59 AT RISK OF RI> OR = 0.60 SUGGEST RI 58-Zwv-674027:10 TROPONIN-I 0.03 ng/mL (Normal) Comments: Please Note: TROPONIN REFERENCE RANGE CHANGEEffective JANUARY 23, 2009. Comments: TROPONIN-I EXPECTED VALUES <0.05 NEGATIVE0.06 - 0.59 AT RISK OF RI> OR = 0.60 SUGGEST RI 75-Scr-179282:55 CKMB Comments: COMMENTS: ADD TO TROP DRAWN [...] CHOL 108 mg/dL (Normal) Comments: <200 mg/dL Gcyskbdmi540-994 mg/dL Borderline>240 mg/dL High Risk :22 LIVER [...] Report See Note (Normal) Comments: Exam Number: [id number] PET CT. CLINICAL STATEMENTPulmonary nodule. Correlation is [...] Report See Note (Normal) Comments: Exam Number: [id number] CT SCAN OF CHEST. HISTORYNeoplasm of uncertain [...] be, measuring 14 ml. The lesion measured puhxlxezimtdc22 ml in maximum dimension on the biopsy [...] Reported By: DEXTER ANDRADE M.D. :05 TSH ([id number]) Comments: PATIENT WAS FASTINGPERFORMED BY: Plex Fjwqgr9125 [facility] [id number] TSH 2.084 {uIU/mL} (Normal) Range: 0.350-5.500 Comments: Adult TSH concentrations below 5.5 uIU/mL does not rule out the presence of subclinical hypothyroidism. :05 METABOLIC PANEL, COMPREHENSIVE Comments: PATIENT WAS FASTINGPERFORMED BY: Plex Quzuvl4032 [facility] [id number] ([id number]) A/G Ratio 1.7 (Normal) Range: 1.1-2.5 Albumin, [...] Est >60 mL/min (Normal) Range: 60-137 If -Lao >60 mL/min (Normal) Range: 60-137 Comments: Note: [...] Glucose, Serum 95 mg/dL (Normal) Range: 65-99 09-Nvl-31505:05 CBC WITH MANUAL DIFF ([id number]) Comments: PATIENT WAS FASTINGClinical Information: ADD DRAW FEE [id number] ADD J [id number] PERFORMED BY: [facility] [id number] Baso (Absolute) 0.1 {x10E3/uL} (Normal) Range: 0.0-0.2 [...] (PROSTATE SPECIFIC Comments: PATIENT WAS FASTINGPERFORMED BY: [facility]6370 [facility] [id number] ANTIGEN) (V76.44) Prostate Specific Ag, Serum 2.1 ng/mL (Normal) Range: 0.0-4.0 Comments: [employer] ([employer] [facility] methodology :16 CHEST, PA AND LATERAL Radiology Report See Note (Normal) Comments: Exam Number: [id number] PA AND LATERAL CHEST HISTORY Being done [...] Report See Note (Normal) Comments: Exam Number: [id number] PERCUTANEOUS LUNG BIOPSY HISTORY The patient has [...] see above. Reported By: VALERIY LAU M.D. 52-Rlr-19838:00 TISS/FLUID P-BX/CY (Normal) Comments: OPERATION CT guided [...] 3.5-5.1 NA 137 mmol/L (Normal) Range: 136-145 33-Bfz-09672:45 CBC Comments: COMMENTS: THIS AMPrecautions*: NOT APPLICABLE HCT 30.3 % (Abnormal) Range: 40-54 HGB 10.5 g/dL (Abnormal) Range: 14.0-18.0 MCH 31.4 pg (Normal) Range: 27.0-32.0 MCHC 34.7 g/dL (Normal) Range: 32-36 MCV 90.6 fL (Normal) Range: 80-94 PLT 198 K/mm3 (Normal) Range: 150-450 RBC 3.34 {M/mm3} (Abnormal) Range: 4.6-6.2 RDW 13.2 % (Normal) Range: 11.6-14.6 WBC 10.8 K/mm3 (Normal) Range: 4.4-11.0 05-Ybz-110784:22 TURP P-PROS (Normal) Comments: OPERATION Cystoscopy, TUR [...] SJ:van 7 TC:2 REPORT SIGNED: ELIDIA VEGA 06/04/0629-May-20064-Cer-421007:08 CALCULI P-CALC (Normal) Comments: OPERATION Cytoscopy, litholapaxy, [...] analysis. /SJ:cm 06/01/06 REPORT SIGNED: EDITH MORROWI 06/02/0629-May-20066-Bwm-143424:34 CALCULI [id number] CA OXAL DIHYDR 30 % (Normal) CA OXAL MONOHYD 60 % (Normal) CA PHOSPHATE 10 % (Normal) COLOR Brown (Abnormal) COMMENT Comment (Normal) Comments: Physician questions regarding Calculi Analysis contactLabCo at: [phone].Performed At: [address] [id number] Comment Comment (Normal) Comments: Percentage (Represents the [...] SED RATE 75 mm/h (Abnormal) Range: 0-20 31-Egy-612622:05 CPK TOTAL 47 U/L (Normal) Comments: Precautions*: [...] 1.49 INDETERMINANT > OR = 1.50 SUGGEST RI :20 BMP Comments: COMMENTS: IN AMPrecautions*: NOT [...] 1.49 INDETERMINANT > OR = 1.50 SUGGEST RI : BC No growth in 5 days. [...] 1.49 INDETERMINANT > OR = 1.50 SUGGEST RI : TSH 1.05 {uIU/mL} (Normal) Comments: Precautions*: NOT APPLICABLE 50 Range: 0.34-4.82 : VIT B12 1503 396 pg/mL (Normal) Comments: Precautions*: NOT APPLICABLE 50 Range: 211-911 Comments: Performed At: [address] [id number] :50 BMP Comments: COMMENTS: STATPrecautions*: NOT APPLICABLE [...] $$ <=0.5 S TRIMETHOPRIM/SULFAMETHOXAZ $$ >=320 R 06-Jhq-927803:15 CULTURE, URINE Comments: COMMENTS: BONEZZIPrecautions*: NOT APPLICABLE [...] COMMENTS: BONEZZIPrecautions*: NOT APPLICABLE :02 (Normal) :02 [facility] Comments: COMMENTS: BONEZZIPrecautions*: NOT APPLICABLE BUN [...] 1.49 INDETERMINANT > OR = 1.50 SUGGEST RI Plan of Care Name Dates Details Instructions [...] bacterial pneumonia Unspecified bacterial pneumonia : Reviewed [employer] Letter Indication: Unspecified bacterial pneumonia Hemoptysis : [...] artery disease Coronary artery disease : Reviewed [employer] Letter Indication: Coronary artery disease Coronary artery [...] Thrombophlebitis : FOLLOW UP IN 1 [facility] Indication: Thrombophlebitis folliculitis : Antibiotic Usage Education - Male Indication: folliculitis Other specified viral infection, in conditions classified elsewhere and of unspecified site : IV Indication: Other specified viral infection, in conditions classified elsewhere and of unspecified site BPH : FOLLOW UP IN 1 YEAR Indication: BPH Actinic keratosis : Cryotherapy Indication: Actinic keratosis Planned Observations VITAMIN D, 1, 25-DIHYDROXY (93835)Indication: Vitamin D deficiency On: 6-Swc-035564:16 Request PSA (PROSTATE SPECIFIC ANTIGEN) (V76.44)Indication: Enlarged prostate with lower urinary tract symptoms On: 3-Ekl-884860:16 Request LIPID PANEL (21369)Indication: Hypercholesteremia On: :15 Request METABOLIC PANEL, COMPREHENSIVE (12360)Indication: Hypertension On: :15 Request CBC, PLATELETS & AUT DIFF (69905)Indication: Hypertension On: 2-Dtu-189935:15 Request C-REACT PROT HIGH SENS(hsCRP) (12270)Indication: CRP elevated On: 77-Klz-595300:01 Request Folate (09632)Indication: Fatigue On: 18-Zmv-904999:55 Request Urinalysis, Office (73317)Indication: Hypertension On: 46-Upk-040984:36 Request URINALYSIS, W/ MICRO (98323)Indication: Hypertension On: :58 Request CBC (Auto) (13567)Indication: Hypertension On: :58 Request Metabolic Panel, Basic (27442)Indication: Hypertension On: :58 Request PSA (PROSTATE SPECIFIC ANTIGEN) (V76.44)Indication: Screening for prostate cancer On: :21 Request Comments: do 07-08 URINALYSIS, W/ MICRO (55492)Indication: Hypertension On: :17 Request TSH (58704)Indication: Anxiety On: :18 Request URINALYSIS, W/ MICRO (24136)Indication: Hypertension On: :18 Request METABOLIC PANEL, COMPREHENSIVE (93424)Indication: Hypertension On: :18 Request LIPID PANEL (41578)Indication: Hypertension On: : Request CBC with auto diff (65944)Indication: Hypertension On: : Request PSA (PROSTATE SPECIFIC ANTIGEN) (V76.44)Indication: Encounter for routine history and physical exam for male On: : Request CBC (Auto) (00944)Indication: Hypertension On: : Request Comments: citrate tubes Metabolic Panel, Basic (20736)Indication: Hypertension On: : Request Methymalonic Acid, Serum (78988)Indication: Thrombocytopenia On: :49 Request Vitamin B-12 (cyanocobalamin) (89870)Indication: Thrombocytopenia On: :49 Request Sed Rate Erythrocyte (39268)Indication: Thrombocytopenia On: :49 Request FIBRINOGEN (72903)Indication: Thrombocytopenia On: 4-Dnu-095898:49 Request HELICOBACTER PYLORI ANTIBODY (15276)Indication: Thrombocytopenia On: :49 Request PTT (Activated Partial Thromboplastin Time) (07430)Indication: Thrombocytopenia On: :48 Request PT (Prothrobim Time) (27156)Indication: Thrombocytopenia On: 2-Kug-090532:48 Request HEPATITIS C ANTIBODY (59728)Indication: Thrombocytopenia On: 2-Mdn-081869:48 Request HEPATITIS B CORE ANTBD-IGG/IGM (30890)Indication: Thrombocytopenia On: 7-Vfa-829751:48 Request HEPATITIS B SURFACE ANTIGEN (14184)Indication: Thrombocytopenia On: 1-Imq-046119:48 Request HEPATITIS B SURFACE ANTIBODY (03443)Indication: Thrombocytopenia On: 7-Owe-128220:48 Request CBC W/AUTO DIFF WBC (92605)Indication: Thrombocytopenia On: 7-Eff-855626:41 Request Comments: citrate tube CBC WITH MANUAL DIFF (35682)Indication: Thrombocytopenia On: 49-Whi-86932:42 Request Comments: DRAW IN CITRATE TUBE PLEASErecheck before next follow up in Feb 2014 Metabolic Panel, Basic (86764)Indication: Hypertension On: 4-Muf-592491:33 Request Comments: copy [facility] HEPATIC FUNCTION PANEL (00486)Indication: Hypertension On: :33 Request LIPID PANEL (71602)Indication: Hypercholesteremia On: 9-Bmo-829236:32 Request URINALYSIS, W/ MICRO (95341)Indication: Hypertension On: 1-Xsa-103021:32 Request CBC (Auto) (45654)Indication: Hypertension On: 3-Qdl-543350:32 Request PSA (PROSTATE SPECIFIC ANTIGEN) (V76.44)Indication: Encounter for routine history and physical exam for male On: 3-Gvm-054525:02 Request CBC (Auto) (97980)Indication: Hypertension On: 08-Jul-2011 Request Metabolic Panel, Basic (15040)Indication: Hypertension On: 08-Jul-2011 Request URINALYSIS, W/ MICRO (53123)Indication: Hypertension On: 08-Jul-2011 Request URINALYSIS W/O MICRO (16045)Indication: Essential hypertension, malignant On: 5-Mvn-682544:00 Request TSH (81158)Indication: Essential hypertension, malignant On: 2-Ayy-122655:00 Request METABOLIC PANEL, COMPREHENSIVE (61761)Indication: Essential hypertension, malignant On: 5-Idd-834333:00 Request CBC WITH MANUAL DIFF (14312)Indication: Essential hypertension, malignant On: 5-Roc-870767:00 Request PSA (PROSTATE SPECIFIC ANTIGEN) (V76.44)Indication: BPH On: 8-Qer-885858:59 Request CBC (Auto) (77849)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, unspecified On: :51 Request PTT (Activated Partial Thromboplastin Time) (76175)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, unspecified On: :50 Request Comments: drawn in office today PT (Prothrobim Time) (03153)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, unspecified On: :50 Request Comments: drawn in office URINALYSIS (68639)Indication: Hypertension On: :38 Request METABOLIC PANEL, BASIC (67137)Indication: Hypertension On: 43-Hyk-85647:37 Request Planned Procedures Aerosol Treatment (88574)By: Evonne On: 28-Dec-2017 Rosana Mark DO, DO, Kathleen Comments: no wheeze adn better a/e after treatment COMPUTED TOMOGRAPHY ANGIOGRAPHY OF On: 15-Dec-2017 Intent CHEST FOR PULMONARY EMBOLISM Comments: STAT ORDER PLEASE PHONE RESULTS TO GABY RO AT [phone] ([id number])By: Gaby Ro CNP CTA OF CHEST WITHOUT THEN WITH On: 15-Dec-2017 Intent CONTAST AND POST-PROCESSING (04654)By: Gaby Ro CNP COMPUTED TOMOGRAPHY OF CHEST FOR On: 15-Dec-2017 Intent PULMONARY EMBOLISM (38828)By: Marjorie Comments: stat stat stat Gaby DOMINGUEZ Solu -Medrol Injection, 125 mg On: 14-Dec-2017 Intent (J2930)By: Gaby Ro CNP Spirometry (54831)By: Marjorie DOMINGUEZ, On: 14-Dec-2017 Intent Gaby Torrez Comments: Moderate Airway obstruction CHEST XRAY, PA & LATERAL (48347)By: On: 14-Dec-2017 Intent Gaby Ro CNP Aerosol Treatment (68380)By: Marjorie On: 14-Dec-2017 Gaby Mark CNP Radiology - Chest- PA and LatBy: On: 31-Dec-2016 Intent Rosana Davis DO, DO, Comments: fu on pneumonia -- do towards end january Rosana Radiology - Chest- PA and LatBy: On: 04-Jul-2016 Intent Rosana Davis DO, DO, Kathleen Flu Vaccine (Quadrivalent) 33620Dy: On: 12-Nov-2015 Intent Visit, Nurse Comments: Lot #[id number]/30/[id number]-L dltd, IMDose prefilled syringegiven by:MORENA VillaltaNVIS and ABN signed US DOPPLER CAROTID BILATERAL On: 22-Aug-2015 Intent (70359)By: Wes Hernandez MD Comments: bilateral PFT - CompleteBy: Wes Hernandez MD On: 24-Jul-2015 Intent CAROTID DUPLEX EXAMINATION On: 24-Jul-2015 Intent (01231)By: Wes Hernandez MD Radiology - Chest- PA and LatBy: On: 19-Mar-2015 Intent Fast DO, Torie A Comments: stat PNEUM VAC ADLT/IMUMNOSPR, SBC/INTRM On: 23-Jan-2015 Intent (70273)By: Parul Rice MD ADMINISTRATION OF PNEUMOCOCCAL On: 23-Jan-2015 Intent VACCINE (G0009)By: Parul Rice MD PNEUM VAC ADLT/IMUMNOSPR, SBC/INTRM On: 23-Jan-2015 Intent (29040)By: Parul Rice MD Flu Vaccine (Quadrivalent) 39525Xc: On: 23-Jan-2015 Intent Parul Rice MD Comments: lot [id number]: 08/23/2015site/route L tarsha, IMamt 0.5mlVIS and ABN signed when applicableChrissie, RUSSELL ELECTROCARDIOGRAM, COMPLETE (ECG) On: 25-Jul-2014 Intent (08930)By: Parul Rice MD Prevnar 13 (90277)By: Dwayne GARCIA, On: 31-Jan-2014 Intent Parul Edwards Comments: [id number] arm, IMMegan Solu -Medrol Injection, 125 mg On: 31-Aug-2013 Intent (J2930)By: Marjorie DOMINGUEZ Gaby Torrez Comments: [id number], 2mlMegan Eprescribed prescriptions On: 25-Jul-2013 Intent (G8553)By: Parul Rice MD FLU VAC, SPLIT, >3 YEARS, INTRAMUSC On: 04-Nov-2012 Intent (35428)By: Parul Rice MD Comments: lot [id number] 2014site/route L tarsha, IMamt 0.5mlVIS and ABN signed when applicableChelsea, COIL CLEANER ADMINISTRATION OF INFLUENZA VIRUS On: 04-Nov-2012 Intent VACCINE (G0008)By: Yesy Hagan Pulse Oximetry (44118)By: Caleb On: 22-Oct-2012 Intent JOHANA Esophagram with a cookie swallow On: 10-Aug-2012 Intent using the tablet.By: Dwayne GARCIA, Comments: see Dr. araseli Edwards EKG (62660)By: Rosana Davis DO On: 17-Mar-2012 Intent Rosana Davis DO Comments: nsr no acute cgh Eprescribed prescriptions On: 17-Mar-2012 Intent (G8553)By: Rosana Davis DO, DO, Kathleen FLU VAC, SPLIT, >3 YEARS, INTRAMUSC On: 14-Nov-2011 Intent (72028)By: Polly Sutton Comments: Lot:[id number]:6.30.13Dose:prefilledRoute:IMSite:L DltdGiven By:CHARLA signed ADMINISTRATION OF INFLUENZA VIRUS On: 14-Nov-2011 Intent VACCINE (G0008)By: Polly Sutton FLU VAC, SPLIT, >3 YEARS, INTRAMUSC On: 18-Nov-2010 Intent (59996)By: Wendy Johnson LPN Comments: Lot #[id number]-L arm IMDose prefilledgiven by:Wendy ADMINISTRATION OF INFLUENZA VIRUS On: 18-Nov-2010 Intent VACCINE (G0008)By: Wendy Johnson LPN ADMINISTRATION OF INFLUENZA VIRUS On: 27-Nov-2009 Intent VACCINE (G0008)By: Wendy Johnson LPN Comments: Lot #[id number]/11Site-L armDose0.5mlgiven by:ANDRAE Drew FLU VAC, SPLIT, >3 YEARS, INTRAMUSC On: 27-Nov-2009 Intent (43825)By: Wendy Johnson LPN Doppler Ultrasound OtherBy: Ciesa On: 24-Jul-2009 Intent Gaby DOMINGUEZ Comments: call with lizett acharya, Left leg today FLU VAC, SPLIT, >3 YEARS, INTRAMUSC On: 23-Nov-2008 Intent (66497)By: Juany Harrison RN ADMINISTRATION OF INFLUENZA VIRUS On: 23-Nov-2008 Intent VACCINE (G0008)By: Juany Harrison RN ADMINISTRATION OF PNEUMOCOCCAL On: 25-Jul-2008 Intent VACCINE (G0009)By: Torie Fletcher DO PNEUM VAC ADLT/IMUMNOSPR, SBC/INTRM On: 25-Jul-2008 Intent (78708)By: Torie Fletcher DO Comments: Lot #: [id number] date: mount given: 0.5 mlRoute: IMSite given: Left deltoidGiven by: Prateek Chung LPN PET ScanBy: Fast DO, Torie A On: 09-Jul-[address] - ChestBy: Fast DO Torie A On: 23-Jun-2007 Intent Ultrasound - RenalBy: Fast DO, On: 23-Jun-2007 Intent Torie Chandra Bio Z (94632)By: Chayo Lorenz On: 23-Jun-2007 Intent Spirometry (97138)By: Dwayne GARCIA, On: 04-Aug-2006 Intent Parul Edwards Pulse Oximetry (76598)By: Dwayne On: 04-Aug-[address] - Chest (IV Contrast Needed)By: On: 04-Aug-2006 Intent Parul Rice MD Comments: PLAN NEEDLE GUIDED BIOPSY OF NODULE/MASS BY DR KURT Castellonan Injection, up to 50 mg On: 15-May-2006 Intent (J2550)By: Parul Rice MD DESTROY BENIGN/PREMALIG LESION, 1ST On: 13-Nov-2005 Intent (04678)By: aPrul Rice MD Planned Medications INJECTION, METHYLPREDNISOLONE SODIUM [...] of lung cancer sees Dr. Lam at [facility] , sees once a year. Saw [...] is transitioning into care from a hospital (health system for pneumonia and a sbo) and a [...] The patient does have durable power of research attorney and living will. The patient has noticed lack of energy. Other providers contributing to the patient's care are computer hardware developer (Aylin).Encounter Diagnosis: BMI 30.0-30.9,adult, Nonsmoker, Vision abnormalities, [...] The patient does have durable power of research attorney and living will. The patient has noticed nothing from the geriatic depression scale. O ther providers contributing to the patient's care are computer hardware developer. Encounter Diagnosis: Hypertension 401.1 (Renamed from Hypertension [...] (211.3), Lung nodule (518.89), hernia repair right, qaexthznyd80, Actinic keratosis (702.0), hemmorhiodectomy, BPH, Hypertension 401.1 [...] is keeping close followup with doctors at [facility] on this-- hedidnt have to danielle ve [...] get colonsocopy so will send back to [facility] to do, [ADDITIONAL REASON] Cough - The [...] ago-- has appt with heart doctor in [facility] Diagnosis: GERD (530.81), Depression (311.), Unspecified [...] STATUS (V45.81), hernia repair right, tonsillectomy, hemmorhiodectomy, xnascjtoyl24, Actinic keratosis (702.0) [facility] Office Visit On: 12-Nov-2005 12:16 [facility] End: 12-Nov-2005 12:34 Payers MedicareAmerican Republic Tess/Silvestre Vann; a guarantor
--- OUTSIDE RECORDS SUMMARY | 2018-05-13 10:05 | XMS RPT_ITS | Continuity of Care Document ---
:1940 Author Organization [facility] Address [address] [facility] [address] [place] [address] Phone Care Team Providers Name Role Phone Rosana Davis DO Unavailable [facility] Unavailable Gato Dickinson MD Unavailable RUSSELL [...] diet and exercise.Patient has durable power of trade mark attorney and living will. 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 for lung cancer s/p surgery [...] month, next appt in [place] in [facility], started HCTD 03/10, stableStable at home:125/60, 83861/60, 120/65 Status: Active Impaired fasting glucose (R73.01, [...] more in winterNo wheezeHAs allergiesHas rescue inhalor, [facility] COPD and gets Inhalors from there [...] Quantity: 60 {Tablet} Refills: 0 Ordered:31-Dec-2016 Carmela Rosaels LPN Start : 24-Jul-2015 End : 31-Dec-2016 [...] : 08-Aug-2015 End : 07-Sep-2015 Inactive ZOSTAVAX, 85612FTM/0.65ML (Subcutaneous Solution Reconstituted) 1 For Solution once [...] likely pass creat good send report to [facility] Status: Inactive as of 10-Aug-2012 [id number] Status: Inactive as of 10-Aug-2012 Diverticulitis (K57.92, 562.11) Comments: on atb pain getting better if pain not all the way resolve ? kidney stones and back to [facility] Status: Inactive as of 10-Aug-2012 Dysphagia, unspecified [...] Lung nodule (R91.1, 793.11) Comments: pulm at [facility] - Status: Inactive as of 17-Mar-2012 Malignant [...] few CT scan of chest up at [facility] see Dr. Genaro santana. will send [...] W/WO Contrast Result: Comments: See Note; NOTES: [facility] Imaging Services [address] [address] CTA Chest W/WO Contrast MR#: [id number] Acct: [id number] Name: GEORGE VANN Rep #: [id number] : 1940 M 77 From: Prasanna Lr MD PCP: Rosana Davis DO Status: REG CLI Study: CTA Chest W/WO Contrast Date of Exam: 12/15/17 Exam# [id number] Ordering Dr: Gaby Ro TASTE TESTER-C STUDY: CTA CHEST REASON FOR EXAM: Male, [...] CC: Gaby Ro NP; Rosana Davis DO Director Transition: Signed 14-Dec-2017 Chest PA and Lateral Result: Comments: See Note; NOTES: [facility] Imaging Services [address] [place] [address] 18224 Chest PA and Lateral MR#: [id number] Acct: [id number] Name: GEORGE VANN Rep #: [id number] : 1940 M 77 From: Jevon Back MD PCP: Rosana Davis DO Status: REG CLI Study: Chest PA and Lateral Date of Exam: 12/14/17 Exam# [id number] Ordering Dr: Gaby Ro TASTE TESTER-C STUDY: X-RAY CHEST REASON FOR EXAM: Male, [...] CC: Gaby Ro NP; Rosana Davis DO Director Transition: Signed 10-Sep-2017 Cardiology Visit Report Result: Comments: See Note; NOTES: [facility] [address] [place] [address]. [address] [place] [address] OFFICE VISIT Date of Service: 09/10/17 MR#: [id number] Acct: [id number] Name: GEORGE VANN Rep #: [id number] : 1940 Provider: Butch Peres MD Age/Sex: 76/M [place] [facility] Status: Signed HPI HPI Chief Complaint: Follow up visit Details: GEORGE VANN, is a 76 M who presents to [facility] office today for a cardiovascular follow-up. 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 Accompanied by: none Is patient [...] PFSH Medical History Atherosclerotic heart disease of [place] coronary artery without angina pectoris (Chronic) HLD [...] posterior descendi ng artery and CX @ [facility] 07/20/2003; Plan He is status post [...] Visit Report Result: Comments: See Note; NOTES: [facility] [address] [place] [address] OFFICE VISIT Date of Service: 03/13/17 MR#: [id number] Acct: [id number] Patient: GEORGE VANN Rep #: [id number] : 1940 Provider: Rossana You Age/Sex: 76/M Location: [facility] Status: Signed Intake Vital Signs03/13/17 Height 5 ft 10 in 03/13/17 Blood Pressure 140/72 03/13/17 Blood Pressure Location Lt brachial Intake Visit Reasons: 2 wk bp ck 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 [place] [address] OFFICE VISIT Date of Service: 02/27/17 MR#: [id number] Acct: [id number] Name: GEORGE VANN Rep #: [id number] : 1940 Provider: Rossana You Age/Sex: 76/M Location: [facility] Status: Signed HPI 6 M FU: Details: [...] 02/27/17] Ejection fraction %: 60 to 64 [facility] Medical History Atherosclerotic heart disease of [place] coronary artery without angina pectoris (Chronic) HLD [...] Cardiology Exam Const Appearance: cooperative, no ac lovelock distress and well developed Orientation: alert, awake [...] affect Assessment AND Plan 1. Atherosclerosis of [place] coronary artery of [place] heart without angina pectoris I25.10; I25.10; I25.10 CA BG x6: JUAREZ sequentially to Ramus Intermedius and first diagonal, BUD to LAD, SVG to diagonal 2, SVG sequentially to posterior descending artery and CX @ [facility] 07/20/2003; [facility] 01/07/2005. Plan - DILCIA Trinidad Stable, [...] prior to saving. 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 He is followed at the [facility] in [place] for surveillance of his lung cancer. ED [...] everal years. He is followed at the [facility] in [place] for surveillance of his lung . cancer. [...] enema. The patient is a greeable to [facility]. He did receive empiric treatment for [...] cancer status post lobectomy left, treated at [facility], bladder tumor, stable Plan: Observe on telemetry Gentle hydration Gentle soapsuds enema Liquid diet as tolerated, may advance as tolerated Repeat lactic acid Hold parameters placed on blood pressure medication s (hold for systolic blood pressure less than 120) DVT prophylaxis with subcu heparin Plan of care discussed with patient and at bedside who voiced understanding 12/11/16 5272 <Electronic ally signed by Marie Edmond MD> Date Marie Edmond MD Cosigner Signature (if applicable): Date __ CC: Marie Edmond MD; Rosana Davis DO Signed 11-Dec-2016 Emergency Department Summary Result: Comments: See Note; NOTES: [facility] Medical Records Department [address] [place] [address] Emergency Department Summary 12/11/16 1604 MR#: [id number] Acct: [id number] Name: GEORGE VANN Rep #: [id number] : 1940 76 From: Sumanth Franco MD [...] problems, contact your Primary Care Provider. Call [facility] ([phone]) or report to the closest Emergency Room. Call 911 if necessary. 12/11/16 5923 <Electronically signed by Sumanth Franco MD> Date Sumanth Franco MD Cosigner Signature (If Indicated): Date CC: Rosana Davis DO 11-Dec-2016 Abdomen/Pelvis WITH Contrast Result: Comments: See Note; NOTES: [facility] Imaging Services [address] [place] [address] Abdomen/Pelvis WITH Contrast MR#: [id number] Acct: [id number] Name: GEORGE VANN Rep # : [id number] : 1940 M 76 From: Jake Bazzi MD PCP: Rosana Davis DO Status: [facility] Study: Abdomen/Pelvis WITH Contrast Date of Exam: 12/11/16 Exam# [id number] Ordering Dr: Sumanth Franco MD STUDY: CT [...] Jake harry MD at 16:07 EDT Tel [phone], Service support , CC: Rosana Davis DO; Sumanth Franco MD Director Transition: Signed 11-Dec-2016 Chest 1 View (Portable) Result: Comments: See Note; NOTES: [facility] Imaging Services [address] [place] [address] 22052 Chest 1 View (Portable) MR#: [id number] Acct: [id number] Name: GEORGE VANN Rep #: [id number] : 1940 M 76 From: Jake Bazzi MD PCP: Rosana Davis DO Status: [facility] Study: Chest 1 View (Portable) Date of Exam: 12/11/16 Exam# [id number] Ordering Dr: Sumanth Franco MD STUDY: X-RAY [...] Alexis Bazzi MD at 14:43 EDT Tel [phone], Service support , CC: Rosana Davis DO; Sumanth Franco MD Director Transition: Signed 21-Aug-2016 Operative Report Result: Comments: See Note; NOTES: [facility] Medical Records Department [address] [place] [address] Operative Report 08/21/16 1138 MR#: [id number] Acct: [id number] Name: YOUNG VANN THELMA Edwards Rep #: [id number] : 1940 75 From: Butch Peres MD PCP: Rosana Davis DO Status: REG CLI Y Location: [facility] Operative Report (Blank) Date of Procedure: [...] and Lateral Result: Comments: See Note; NOTES: [facility] Imaging Services [address] [place] [address] Verdana 4d Chest PA and Lateral MR#: [id number] Acct: [id number] Name: GEORGE VANN p #: [id number] : 1940 M 75 From: Ari Baker MD PCP: Rosana Davis DO Status: REG CLI Study: Chest PA and Lateral Date of Exam: 07/04/16 Exam# [id number] Ordering Dr: Rosana Davis DO STUDY: X-RAY [...] Service support , CC: Rosana Davis DO Director Transition: Signed 04-Jul-2016 Chest PA and Lateral Result: Comments: See Note; NOTES: [facility] Imaging Services [address] [place] [address] Verdana 4d Chest PA and Lateral MR#: [id number] Acct: [id number] Name: GEORGE VANN #: [id number] : 1940 M 75 From: Ari Baker MD PCP: Rosana Davis DO Status: REG CLI Study: Chest PA and Lateral Date of Exam: 07/04/16 Exam# [id number] Ordering Dr: Rosana Davis DO ADDENDUM by Ari Baker on 07/04/16 at 2357 RAD/Chest PA and Lateral IMPRESSION: There are no acute findings. Electronically Signed: Ari Baker MD at 23:57 EDT Tel , Service support , 07/05/16 0004 Date cc: Roasna Davis DO * Signed ADDENDUM by Ari Baker on 07/04/16 at 1988 ADDENDUM STUDY: X-RAY CHEST REASON FOR EXAM: [...] tissue structures of the upper abdomen. 07/04/16 0296 Date cc: Rosana ac DO * Signed [...] Service support , CC: Rosana Davis DO Director Transition: Signed 08-Feb-2016 Kidney and Bladder Result: Comments: See Note; NOTES: [facility] Imaging Services [address] [place] [address] Verdana 4d Kidney and Bladder MR#: [id number] Acct: [id number] Name: KATYGEORGE Jerry Rep #: [id number] : 1940 75 From: Jake Bazzi MD PCP: Wes Hernandez Status: REG CLI Study: Kidney and Bladder Date of Exam: 02/08/16 Exam# [id number] Ordering Dr: Yandel Murrieta MD STUDY: RENAL [...] Jake Bazzi MD at 15:02 EST Tel [phone], Service support [phone], CC: Yandel Murrieta MD; Wes Hernandez Director Transition: Signed 01-Feb-2016 6 Minute Walk Test Result: Comments: See Note; NOTES: [facility] Pulmonary Services/Neurology [address] [place] [address] MR#: [id number] Acct: [id number] Name: GEORGE VANN Rep #: [id number] : 1940 75 From: Sigifredo Best DO Referring Dr: Liliam Mcintosh NP Date: Ordering Dr: Marck: Jerry Hugo Location: PSN PSN 6 Minute Walk Test - 6 Minute Walk Test 6 Minute Walk Test: 6 Minute Walk Test P SN:6-Minute Walk Test Start: 01/31/16 12:55 Freq: Status: Active Document 01/31/16 12:55 SFENTON (Rec: 01/31/16 13:03 SFENTON [id number]) 6 Minute Walk Test Date Performed 01/31/16 [...] he will not wear it. Liliam Mcintosh TASTE TESTER is aware. Initialized on 01/31/16 12:58 - [...] CC: Date Dictated: 02/01/16826 Date Transcribed: 02/01/16826 Director Transition: Sigifredo Best DO Signed 10-Dec-2015 Operative Report Result: Comments: See Note; NOTES: [facility] Medical Records Department [address] [place] [address] Operative Report MR#: [id number] Acct: [id number] Name: GEORGE VANN Jerry Rep #: [id number] : 1940 75 From: Yandel Murrieta MD PCP: Wes Hernandez Status: [facility] DATE OF SERVICE: 12/07/2015 DATE OF SERVICE: [...] get into the distal ureter with an 8-Bolivian flexible ureteroscope and we performed ureteroscopy and [...] up. Yandel Murrieta MD T: NTS JOB: [id number] 12/10/15 0800 <Electronically signed by Yandel Murrieta MD> Date Yandel Murrieta MD Cosigner Signature (If Indicated): Date CC: Yandel Murrieta MD; Wes Hernandez Date Dictated: 0 Date Transcribed: 12/07/151449 Director Transition: Signed 08-Dec-2015 Emergency Department Summary Result: Comments: See Note; NOTES: [facility] Medical Records Department [address] [place] [address] Emergency Department Summary 12/08/15 1208 MR#: [id number] Acct: [id number] Name: GEORGE VANN Rep #: [id number] : 1940 75 From: Sumanth Franco MD [...] problems, contact your Primary Care Provider. Call [facility] ([phone]) or report to the closest Emergency Room. Call 911 if n ecessary. 12/08/15 6113 <Electronically signed by Sumanth Franco MD> Date Sumanth Franco MD Cosigner Signature (If Indicated): Date __ CC: Wes Hernandez; Valeriy Bravo MD 08-Dec-2015 CTA Chest W/WO Contrast Result: Comments: See Note; NOTES: [facility] Imaging Services [address] [place] [address] Verdana 4d CTA Chest W/WO Contrast MR#: [id number] Acct: [id number] Name: GEORGE VANN Rep #: [id number] : 1940 M 75 From: Mariusz Goodson MD PCP: Wes Hernandez Status: REG ER Study: CTA Chest W/WO Contrast Date of Exam: 12/08/15 Exam# [id number] Ordering Dr: Sumanth Franco MD STUDY: CTA [...] at 15:16 EDT Tel , Service support [phone], CC: Wes Hernandez; Sumanth Franco MD Director Transition: Signed 08-Dec-2015 Chest PA and Lateral Result: Comments: See Note; NOTES: [facility] Imaging Services [address] [place] [address] Verdana 4d Chest PA and Lateral MR#: [id number] Acct: [id number] Name: GEORGE VANN #: [id number] : 1940 M 75 From: Poornima Mohan MD PCP: Wes Hernandez Status: REG ER Study: Chest PA and Lateral Date of Exam: 12/08/15 Exam# [id number] Ordering Dr: Sumanth Franco MD STUDY: X-RAY [...] MD at 12:52 EDT , Service support [phone], CC: Wes Hernandez ; Sumanth Franco MD Director Transition: Signed 07-Dec-2015 Operative Report Result: Comments: See Note; NOTES: [facility] Medical Records Department [address] [place] [address] Operative Report 12/07/15 1442 MR#: [id number] Acct: [id number] Name: ARIE VANN Rep #: [id number] : 1940 75 From: Yandel Murrieta MD PCP: Wes Hernandez Status: [facility] Y Location: [place] [address] Report of Operation Date of Procedure: 12/07/15 [...] Discharge Instruction Result: Comments: See Note; NOTES: [facility] Medical Records Department [address] [place] [address] Instructions for Home/Discharge Instructions 12/07/15 1300 MR#: [id number] Acct: [id number] Name: GEORGE VANN Rep #: [id number] : 1940 75 From: Yandel Murrieta MD [...] Single View Result: Comments: See Note; NOTES: [facility] Imaging Services [address] [place] [address] Verdana 4d Abdomen Single View MR#: [id number] Acct: [id number] Name: GEORGE VANN p #: [id number] : 1940 75 From: Gilbert Kyle MD PCP: Wes Hernandez Status: [facility] Study: Abdomen Single View Date of Exam: 12/07/15 Exam# [id number] Ordering Dr: Yandel Murrieta MD STUDY: X [...] at 12:22 EDT Tel , Service support [phone], CC: Yandel Murrieta MD; Wes Hernandez Director Transition: Signed 29-Aug-2015 Carotid Duplex Ultrasound Result: Comments: See Note; NOTES: [facility] Cardiovascular Services [address] [place] [address] Carotid Duplex Ultrasound 08/28/15 1255 MR#: [id number] Acct: [id number] Name: GEORGE VANN Rep #: [id number] : 1940 74 From: Manny Rodriguez MD Attending Dr: Wes Hernandez Status: REG CLI Ordering Dr: Wes Hernandez Date: 08/28/15 Location: [facility] Sex: M C Admi tted: Reason [...] Dictated: 08/27 1255 Date Transcribed: 08/29/15 1122 Director Transition: Signed 09-Aug-2015 Echocardiogram Complete Result: Comments: See Note; NOTES: [facility] Cardiovascular Services [address] [place] [address] Echo Complete 08/09/15 1357 MR#: [id number] Acct: [id number] Name: LOUISE GRADYGEORGE Jerry Rep #: [id number] : 1940 74 From: Butch Peres MD [...] d: 08/09/15 1357 Date Transcribed: 08/09/15 1527 Director Transition: Signed 07-Aug-2015 Chest PA and Lateral Result: Comments: See Note; NOTES: [facility] Imaging Services [address] [place] [address] Verdana 4d Chest PA and Lateral MR#: [id number] Acct: [id number] Name: GEORGE VANN Rep #: [id number] : 1940 M 74 From: Jake Bazzi MD PCP: Wes Hernandez Status: REG CLI Study: Chest PA and Lateral Date of Exam: 08/07/15 Exam# [id number] Ordering Dr: Butch Peres MD STUDY: X-RAY [...] Jake Bazzi MD at 11:08 EDT Tel [phone], Service support [phone], RAD/Chest PA and Lateral IMPRESSION: Stable examination. Electronically Signed: Jake Bazzi MD at 11:08 EDT Tel [phone], Service support [phone], CC: Wes Hernandez Director Transition: Signed 24-Jul-2015 Spirometry (70863) Result: 19-Mar-2015 Chest PA and Lateral Result: Comments: See Note; NOTES: [facility] Imaging Services [address] [place] [address] Verdana 4d Chest PA and Lateral MR#: [id number] Acct: [id number] Name: GEORGE VANN Rep #: [id number] : 1940 M 74 From: Peggy Mari MD PCP: Parul Rice MD Status: REG CLI Study: Chest PA and Lateral Date of Exam: 03/19/15 Exam# [id number] Ordering Dr: Torie Fletcher DO STUDY: X-RAY [...] at 19:14 EST Tel , Service support [phone], RAD/Chest PA and Lateral IMPRESSION: Suspect COPD. There appear stable dense right lung nodules. No demonstrated acute cardiopulmonary process. Electronically Signed: Peggy Mari MD at 19:14 EST Tel , Service support [phone], CC: Parul Rice MD; Torie Fletcher DO Director Transition: Signed 11-Oct-2014 Carotid Duplex Ultrasound Result: Comments: See Note; NOTES: [facility] Cardiovascular Services [address] [place] [address] Carotid Duplex Ultrasound 10/11/14 0906 MR#: [id number] Acct: [id number] Na me: GEORGE VANN Rep #: [id number] : 1940 73 From: Manny Rodriguez MD Attending Dr: Rossana Vieira Status: REG CLI Ordering Dr: Rossana Vieira Date: 10/11/14 Location: [facility] Sex: M C Admitted: Rt. Velocities/BP [...] vertebral artery. Acoustic shadowing. Procedure Carotid Duplex 94459. The exam was diagnostic. Exam performed in [...] Dictated: 10/11/14 0906 Date Transcribed: 10/11/14 1037 Director Transition: Signed 01-Sep-2014 Esophagus Only Result: Comments: See Note; NOTES: [facility] Imaging Services [address] [place] [address] Radiology Report MR#: [id number] Acct: [id number] Name: GEORGE VANN Rep #: [id number] : 1940 M 73 From: Jake Bazzi MD PCP: Parul Rice MD Status: REG CLI Study: Esophagus Only Date of Exam: 09/01/14 Exam# [id number] Ordering Dr: Gato Willson MD STUDY: X-RAY [...] Jake Bazzi MD at 9:22 EDT Tel [phone], Servi ce support [phone], RAD/Esophagus Only IMPRESSION: Moderate sized hiatal hernia with no evidence of gastroesophageal reflux. 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 Exercise History Comments: Light [...] Area Calculated 2.14 m2 :27 Comments: not [place] Temperature 98.6 f Pulse 76 /min Comments: [...] Sputum Culture Comments: PATIENT NOT FASTINGPERFORMED BY: [employer]70 [facility] [id number] Result 1 RRF (Normal) Comments: Routine respiratory sana Lower Respiratory Culture Final report (Normal) :06 Metabolic Panel, Comprehensive Comments: PATIENT NOT FASTINGPERFORMED BY: [facility] Gslnkh4679 [place] [facility] [id number] (10584) ALT (SGPT) 11 [iU]/L (Normal) Range: 0-44 [...] 8-27 Glucose 133 mg/dL (Abnormal) Range: 65-99 03-Flu-385526:06 CBC, Platelets & Auto Diff Comments: PATIENT NOT FASTINGPERFORMED BY: [facility] Giauyr3197 [facility] [id number] (41631) Immature Grans (Abs) 0.0 {x10E3/uL} (Normal) Range: [...] 4.14-5.80 WBC 9.5 {x10E3/uL} (Normal) Range: 3.4-10.8 48-Rkl-38208:31 Sputum Culture (59911) Comments: PATIENT NOT FASTINGPERFORMED BY: [facility] [id number] [facility] [id number] Information: SRC:SP Gram Stain Evaluation GSACC (Normal) Comments: This specimen is of good quality and is acceptable for routinebacterial culture. Result 1 PCF (Normal) Comments: Few gram positive cocciModerate amount of gram variable coccobacilli Epithelial Cells None seen (Normal) White Blood Cells None seen (Normal) 37-Tvd-621399:06 D-Dimer (69862) Comments: PATIENT NOT FASTINGPERFORMED BY: [facility] Alma6370 [facility] [id number] D-Dimer 0.95 {mg/L_FEU} (Abnormal) Range: 0.00-0.49 Comments: According to the assay supervisor leaf spring fabrication's published package insert, anormal (<0.50 mg/L FEU) D-dimer result in conjunction with a non-highclinical probability assessment, excludes deep vein thrombosis (D VT)and pulmonary embolism (PE) with high sensitivity. .D-dimer values increase with age and this can make VTE exclusion ofan older pop ulation difficult. To address this, the [employer], based on best available evidence [...] 0.80 mg/L FEU. :58 Lipid Profile Comments: [facility] [id number] [place], [place], [address] VLDL 21 mg/dL (Normal) Range: 5-40 LDL [...] mg/dL High Risk :58 Liver Profile Comments: [facility] [id number] [place], [place], [address] D BILI 0.12 mg/dL (Normal) Range: 0.00-0.30 T BILI 0.50 mg/dL (Normal) Range: 0.20-1.00 ALT 17 U/L (Normal) Range: 16-61 ALK P 71 U/L (Normal) Range: 45-117 AST 16 U/L (Normal) Range: 15-37 GLOB 3.8 g/dL (Normal) Range: 2.2-4.2 ALB 3.6 g/dL (Normal) Range: 3.2-5.0 T PROT 7.4 g/dL (Normal) Range: 6.4-8.2 0-Ksu-816442:32 LACTATE (LACTIC ACID) (15198) Comments: PATIENT NOT FASTINGPERFORMED BY: [facility] Spfxmq8509 [facility] [id number] Lactic Acid, Plasma 12.4 mg/dL (Normal) Range: 4.8-25.7 91-Ssk-330919:30 Lactic Acid Comments: Yes/No query for Sepsis Lactate Rule [facility] [id number] [place], [id number] LACTIC ACID 2.3 mmol/L (Abnormal) Range: 0.4-2.0 Comments: Critical Result(s) Called at: 15:11:26 12/11/2016 by:Christen Moralez to [facility] 88-Cre-336420:00 Basic Metabolic Profile (BMP) Comments: [facility] [address] [place], [place], [id number] GAP 10 (Normal) Range: 5-15 CO2 27.0 [...] 126 mg/dLsuggests DIABETES MELLITUS per A.D.A. criteria. 66-Bss-943562:00 CBC W/Diff, Automated Comments: [facility] [address] [place] [place], [id number] Absolute Lymph 2.89 {X10_3/ul} (Normal) Range: 0.83-4.51 [...] 4.6-6.2 WBC 9.9 K/mm3 (Normal) Range: 4.4-11.0 17-Nrl-366722:15 Cytology, Body Fluid / CSF Comments: Specimen Source: [facility] [address] [place], [place], [address] CYTOLOGY,BF/CSF SEE PATHOLOGY REPORT Comments: Spec[facility] (Normal) 50-Lgq-995144:15 CYTOSPIN ON FLUID See Note (Normal) Comments: [address] [place], [place], [address] Comments: Patient: GEORGE VANN : 1940 (75/M) Acct Num: [id number] Phys: Glenny GARCIA,Yandel Warren Unit Num: [id number] Loc: LABSPEC Specimen: [id number] Received: 08/15/16 - 1126 Spec Type: CYSPIN FL TISSUES TISSUES: COMMENT Correlation with clinical findings and appropriate follow up are necessary. Please make reference to previous cytology ([id number]) urine for cytology with diagnosis of rare atypical urothelial noted and specimen ([id number]) bladder tumor, TUR with diagnosis of papillary urothelial carcinoma. CYTOLOGY GROSS Received is 35 ml of clear gol d fluid labeled with the patient's name and and designated per the requisition as urine. Submitted for cytology preparation. / 08/15/16 TC:5 CPT: 68711 CYTOLOGY STUDY Slides are reviewe d. DIAGNOSIS CYTOLOGY Urine for cytology (cytospin): A few clusters of atypical urothelial cells noted. See comment. SJ:lorenzo 08/18/16 HEADER OPERATION: Not noted PRE-OP DIAGNO SIS: Hematuria R31.9 TISSUE SUBMITTED: Urine for cytology Signed Wes Morrow 08/18/16 <signature on file> 40-Ckd-85441:28 BNP,B-Type NATRIURETIC PEPTIDE Comments: Order Date: 08/14/16Order Info: [id number] - *Brain Natriuretic Peptide [facility] [address] [place], [address] B-TYPE EDGAR PEP 45.3 pg/mL (Normal) Range: 0-100 49-Uyt-14813:20 Lipid Profile Comments: Order Date: 08/08/16Order Info: [id number] - *Hepatic Function PanelOrder Date: 08/08/16Order Info: [id number] - *Lipid Profile CC PCPComments: 12 hours fasting, may have water.[facility] La [address] [place], [address] VLDL 39 mg/dL (Normal) Range: [...] 200-240 mg/dL Borderline >240 mg/dL High Risk 43-Bxa-41411:20 Liver Profile Comments: Order Date: 08/08/16Order Info: [id number] - *Hepatic Function PanelOrder Date: 08/08/16Order Info: [id number] - *Lipid Profile CC PCPComments: 12 hours fasting, may have water.[facility] La [address] [place], [place], [address] D BILI 0.13 mg/dL (Normal) Range: 0.00-0.30 T BILI 0.70 mg/dL (Normal) Range: 0.20-1.00 ALT 18 U/L (Normal) Range: 12-78 ALK P 67 U/L (Normal) Range: 45-117 AST 12 U/L (Abnormal) Range: 15-37 GLOB 3.3 g/dL (Normal) Range: 2.3-3.5 ALB 3.7 g/dL (Normal) Range: 3.4-5.0 T PROT 7.0 g/dL (Normal) Range: 6.4-8.2 17-Kbu-357961:45 Basic Metabolic Profile (BMP) Comments: [facility] [address] [place], [place], [address] GAP 0 (Abnormal) Range: 5-15 CO2 30.0 [...] <126 mg/dLsuggests IMPAIRED HOMEOSTASIS per A.D.A. criteria. 02-Cmt-814713:45 CBC W/Diff, Automated Comments: [facility] [address] [place], [place], [address] Absolute Lymph 1.38 {X10_3/ul} (Normal) Range: 0.83-4.51 [...] 4.6-6.2 WBC 11.1 K/mm3 (Abnormal) Range: 4.4-11.0 21-Rly-238889:45 Troponin-I Comments: 'TROP' Serial specimen #1, #2, #3, or #4: [facility] [address] [place], [place], [address] TROPONIN-I < 0.02 ng/mL Comments: TROPONIN-I EXPECTED VALUES <0.05 NEGATIVE 0.06 - 0.59 AT RISK OF VT > OR = 0.60 SUGGEST VT (Normal) BLADDER BX/FULGURATION See Note (Normal) Comments: [facility] [address] [place], [address] :08 Comments: Patient: GEORGE VANN : 1940 (75/M) Acct Num: [id number] Phys: Glenny GARCIA,Urban Unit Num: [id number] Loc: [facility] Specimen: [id number] Received: 12/07/151513 Spec Ty pe: BLADDER BX [...] consists of multiple irregular fragments of light trorez soft tissue that in aggregate measu re 2 x 0.3 x 0.1 cm. The specimen is totally submitted in one cassette. / SJ:rg 12/10/15 TC:0 CPT: 59511 x2 HEADER OPERATION: Cystoscopy, left ureteroscopy PRE-OP [...] summary is in compliance with College of [place] Pathology (CAP) Cancer Protocols Checklist and [place] Joint Committee on Cancer (AJCC), Staging Manual, 7t h Ed. B. Bladder tumor trigone, TUR: Fragments of urothelial mucosa with mild epithelial atypia. Negative for malignancy in the submitted specimen. See comment. SJ:lorenzo 12/11/15 Signed Wes Morrow 12/11/15 <signature on file> :37 Lipid Profile Comments: Order Date: 10/16/15OV Order #: [id number] Samaritan Hospital [address] [place], [place], [address] VLDL 31 mg/dL (Normal) Range: 5-40 LDL [...] Profile Comments: Order Date: 10/16/15OV Order #: [id number] Samaritan Hospital [address] [place], [address] D BILI 0.15 mg/dL (Normal) Range: 0.00-0.30 T BILI 0.60 mg/dL (Normal) Range: 0.20-1.00 ALT 17 U/L (Normal) Range: 12-78 ALK P 60 U/L (Normal) Range: 50-136 AST 13 U/L (Abnormal) Range: 15-37 GLOB 3.4 g/dL (Normal) Range: 2.3-3.5 ALB 3.6 g/dL (Normal) Range: 3.4-5.0 T PROT 7.0 g/dL (Normal) Range: 6.4-8.2 :18 SED RATE ERYTHROCYTE Comments: PATIENT WAS FASTINGPERFORMED BY: Olomomo Nut CompanyUNM Cancer CenterWubjbs0714 [facility] [id number] BY: [address] [id number] ([address]1815) Sedimentation Rate-Westergren 4 mm/h (Normal) Range: 0-30 :18 RHEUMATOID FACTOR-QUANT Comments: PATIENT WAS FASTINGPERFORMED BY: Olomomo Nut CompanyBenjamin Ville [address]270 [facility] [id number] BY: [employer] [id number] ([address]38) RA Latex Turbid. 4.8 {IU/mL} (Normal) Range: 0.0-13.9 :18 C-REACTIVE PROTEIN (53713) Comments: PATIENT WAS FASTINGPERFORMED BY: Olomomo Nut CompanyBayonne Medical CenterGtlrcn0939 [facility] [id number] BY: [address] [id number] C-Reactive Protein, Quant 12.2 mg/L (Abnormal) Range: 0.0-4.9 :18 PSA (Medicare - G0103) Comments: PATIENT WAS FASTINGPERFORMED BY: Olomomo Nut CompanyBayonne Medical CenterUnzjfu3342 [facility] [id number] BY: [address] [id number] (96329) Prostate Specific Ag, 2.6 ng/mL (Normal) Range: 0.0-4.0 Serum Comments: Dariusz ECLIA methodology. .According to the [place] Urological Association, Serum PSA shoulddecrease and remain [...] AND FOLATES Comments: PATIENT WAS FASTINGPERFORMED BY: Hole 19[facility] [id number] BY: Olomomo Nut CompanyMary Ville [id number] (26849) Folate (Folic Acid), Serum >20.0 ng/mL (Normal) Comments: A serum folate concentration of less than 3.1 ng/mL isconsidered to represent clinical deficiency. Vitamin B12 543 pg/mL (Normal) Range: 211-946 :18 VITAMIN D, 1, 25-DIHYDROXY Comments: PATIENT WAS FASTINGPERFORMED BY: SynovexOn license of [facility] [id number] BY: [employer] [id number] (88968) Calcitriol(1,25 di-OH Vit D) 35.3 pg/mL (Normal) Range: 19.9-79.3 :18 TSH (THYROID STIMULATING Comments: PATIENT WAS FASTINGPERFORMED BY: SynovexOn license of [facility] [id number] BY: [employer] [id number] HORMONE) (73923) TSH 1.680 {uIU/mL} (Normal) Range: 0.450-4.500 :18 LIPID PANEL (83866) Comments: PATIENT WAS FASTINGPERFORMED BY: Local MotorsDublin [place] [id number] BY: [employer] [id number] LDL/HDL Ratio 1.8 {ratio_units} (Normal) Range: 0.0-3.6 [...] METABOLIC PANEL, Comments: PATIENT WAS FASTINGPERFORMED BY: Prezto Hvogum5949 [facility] [id number] BY: [id number] [facility] (31791) ALT (SGPT) 10 [iU]/L (Normal) Range: 0-44 [...] Comments: PATIENT WAS FASTINGPERFORMED BY: CB [facility] Swvlcb8767 [facility] [id number] BY: BN [facility] Cqqtqtulxs8971 [facility] [id number] Information: [id number] (97608) Immature Grans (Abs) 0.0 {x10E3/uL} (Normal) Range: [...] (Normal) Range: 3.4-10.8 :10 HgA1C , Office (55030) HgA1C , Office 5.6 % (Normal) Range: 4.6 - 7.1 :55 Lipid Profile Comments: [facility] [address] [place], [place], [address] VLDL 33 mg/dL (Normal) Range: 5-40 LDL [...] mg/dL High Risk :55 Liver Profile Comments: [facility] [address] [place], [place], [address] D BILI 0.18 mg/dL (Normal) Range: 0.00-0.30 T BILI 0.50 mg/dL (Normal) Range: 0.20-1.00 ALT 15 U/L (Normal) Range: 12-78 ALK P 85 U/L (Normal) Range: 50-136 AST 13 U/L (Abnormal) Range: 15-37 GLOB 3.5 g/dL (Normal) Range: 2.3-3.5 ALB 3.5 g/dL (Normal) Range: 3.4-5.0 T PROT 7.0 g/dL (Normal) Range: 6.4-8.2 :55 HgA1C , Office (53018) HgA1C , Office 5.5 % (Normal) Range: 4.6 - 7.1 5-Uuy-299039:23 URINE MONTSE CULTURE-IDENTIFICATN Comments: PATIENT NOT FASTINGPERFORMED BY: Family NationKatherine [place] 1887970 [facility] [id number] Information: [id number] (10569) Result 1 NG36 (Normal) Comments: No growth in 36 - 48 hours. Urine Culture,Comprehensive Final report (Normal) :31 Urinalysis, Office (90456) UA - LEUKOCYTE ESTERASE Trace (Normal) UA [...] MONTSE CULTURE-IDENTIFICATN Comments: PATIENT NOT FASTINGPERFORMED BY: [employer] Gcqwkn0189 [facility] [id number] Information: [id number] (62088) Result 1 MUG (Normal) Comments: Mixed urogenital flora1,000 Colonies/mL Urine Culture,Comprehensive Final report (Normal) :03 Urinalysis, Office (98715) UA - LEUKOCYTE ESTERASE Trace (Normal) UA - NITRITE Negative (Normal) URINE UROBILINGN DEEPALI TIMED Normal mg/dL (Normal) UA - PROTEIN Negative mg/dL (Normal) UA - PH 5 (Abnormal) UA - BLOOD Hemolyzed Trace (Normal) UA - SPECIFIC GRAVITY 1.030 (Abnormal) UA - KETONES Negative mg/dL (Normal) UA - BILIRUBIN Negative (Normal) UA - GLUCOSE Negative (Normal) :25 Urinalysis, Office (65939) UA - LEUKOCYTE ESTERASE Small (Normal) UA - NITRITE Negative (Normal) URINE UROBILINGN DEEPALI TIMED Normal mg/dL (Normal) UA - PROTEIN 100 mg/dL (Normal) UA - PH 6 (Abnormal) UA - BLOOD Hemolyzed Moderate (Normal) UA - SPECIFIC GRAVITY 1.030 (Abnormal) UA - KETONES Negative mg/dL (Normal) UA - BILIRUBIN Negative (Normal) UA - GLUCOSE Negative (Normal) :38 LIPID PANEL (28525) Comments: copy to Dr. peres; PATIENT WAS FASTINGPERFORMED BY: [employer]6[address] [facility] [id number] LDL/HDL Ratio 1.6 {ratio_units} (Normal) Range: 0.0-3.6 [...] 130 mg/dL (Normal) Range: 100-199 :38 CALCIFIDIOL (42746) VIT D 25 Comments: PATIENT WAS FASTINGPERFORMED BY: [employer]6370 [facility] [id number] Vitamin D, 25-Hydroxy 35.1 ng/mL (Normal) Range: 30.0-100.0 Comments: Vitamin D deficiency has been defined by the [place] ofMedicine and an Endocrine Society practice guideline as alevel of serum 25-OH vitamin D less than 20 ng/mL (1,2).The Endocrine Society went on to further define vitamin Dinsufficiency as a level between 21 and 29 ng/mL (2).1. IOM ([place] of Medicine). 2010. Dietary reference intakes for calcium and D. [place]: The National Academies Press.2. Tammy MF, Cameron [place], Arnav DANIELLE, et al. Evaluation, treatment, and prevention of vitamin D deficiency: an Endocrine Society clinical practice guideline. JCEM. 2010; 96(7):1911-30. :38 TSH (30857) Comments: PATIENT WAS FASTINGPERFORMED BY: [employer]6370 [facility] [id number] TSH 2.630 {uIU/mL} (Normal) Range: 0.450-4.500 :38 METABOLIC PANEL, COMPREHENSIVE Comments: PATIENT WAS FASTINGPERFORMED BY: Olomomo Nut CompanyBayonne Medical CenterKrohuy7011 [facility] [id number] (92287) ALT (SGPT) 11 [iU]/L (Normal) Range: 0-44 [...] auto diff Comments: PATIENT WAS FASTINGPERFORMED BY: Olomomo Nut CompanyBayonne Medical CenterKvvxlh6232 [facility] [id number] Information: [id number] (00795) Immature Grans (Abs) 0.0 {x10E3/uL} (Normal) Range: [...] 4.14-5.80 WBC 5.9 {x10E3/uL} (Normal) Range: 3.4-10.8 65-Smj-74460:11 Lipid Profile Comments: Test performed at:[facility] Oilajjoqno[address] [place], [place] [address] VLDL 23 mg/dL (Normal) Range: 5-40 LDL [...] Risk :11 Liver Profile Comments: Test performed at:[facility] [address] [place] [address] D BILI 0.19 mg/dL (Normal) Range: 0.00-0.30 T BILI 0.90 mg/dL (Normal) Range: 0.20-1.00 ALT 16 U/L (Normal) Range: 12-78 ALK P 74 U/L (Normal) Range: 50-136 AST 14 U/L (Abnormal) Range: 15-37 GLOB 3.5 g/dL (Normal) Range: 2.3-3.5 ALB 3.6 g/dL (Normal) Range: 3.4-5.0 T PROT 7.1 g/dL (Normal) Range: 6.4-8.2 :19 Basic Metabolic Profile (BMP) Comments: Test performed at:[facility] [address] [place] [address] GAP 5 (Normal) Range: 5-15 [...] Blood Cnt No Diff Comments: Test performed at:[facility] Oqzjsyekdh5077 [facility] [place] [address] MPV 10.2 fL (Normal) Range: [...] PSA,Total - Annual Screen Comments: Test performed at:[facility] Rmydwfinlf[address] [place] [address] PSA,TOT SCREEN 2.34 ng/mL (Normal) Range: 0.00-4.00 Comments: This test was performed using the TPSA assay method for theEvident.io chemistry system. Values obtained with differentassay methods cannot be used interchangably.When changing PSA assays in the course of monitoring apatient, additional sequential testing should be carriedout to confirm baseline values. 8-Ywa-825370:32 CBC With Differential/Platelet Comments: PATIENT WAS FASTINGPERFORMED BY: CB [facility] Dsdyvj9743 [facility] [id number] BY: BN [facility] [address] [id number] Immature Grans (Abs) 0.0 {x10E3/uL} Range: 0.0-0.1 [...] SPRCS (Normal) Comments: PATIENT WAS FASTINGPERFORMED BY: [employer]ue [facility] [id number] BY: [employer] [id number] 2:32 Comments: Non reactive HCV antibody screen is consistent with no HCV infection,unless recent infection is suspected or other evidence exists toindicate HCV infection. Fibrinogen Antigen 509 mg/dL (Abnormal) Comments: PATIENT WAS FASTINGPERFORMED BY: [employer] Csqpcx6324 [facility] [id number] BY: [employer] [id number] 2:32 Range: 180-350 H. pylori, IgG Abs <0.9 U/mL (Normal) Comments: PATIENT WAS FASTINGPERFORMED BY: [employer] D[address]ys[address] [place] [address] [id number] BY: [address] [id number] 2:32 Range: 0.0-0.8 Comments: Negative <0.9 Indeterminate 0.9 - 1.0 Positive >1.0 HBsAg Screen Negative (Normal) Comments: PATIENT WAS FASTINGPERFORMED BY: [employer] [id number] BY: [address] [id number] 2:32 :32 HBV Core Ab, IgG/IgM Comments: PATIENT WAS FASTINGPERFORMED BY: [address] [id number] BY: [address] [id number] Diff Hep B Core Ab, Tot Negative (Normal) Hep B Core Ab, IgM Negative (Normal) :32 HCV Ab w/Rflx to Comments: PATIENT WAS FASTINGPERFORMED BY: [employer] [id number] BY: [address] [id number] Verification HCV Ab 0.1 {s/co_ratio} (Normal) Range: 0.0-0.9 :32 Hep B Surface Ab Comments: PATIENT WAS FASTINGPERFORMED BY: [employer] [id number] BY: [address] [id number] Hep B Surface Ab, Qual Non Reactive Comments: Non Reactive: Inconsistent with immunity, less than 10 mIU/mL Reactive: Consistent with immunity, greater than 9.9 mIU/mL (Normal) Methylmalonic Acid, 187 nmol/L Comments: PATIENT WAS FASTINGPERFORMED BY: [address] [id number] BY: [address] [id number] :32 Serum (Normal) Range: 0-378 Comments: Please note reference interval change :32 Prothrombin Time (PT) Comments: PATIENT WAS FASTINGPERFORMED BY: [place] 2035170 [facility] [id number] BY: [address] [id number] Prothrombin Time 10.2 {sec} (Normal) Range: 9.1-12.0 INR 1.0 (Normal) Range: 0.8-1.2 Comments: Reference interval is for non-anticoagulated patients. . Suggested INR therapeutic range for Vitamin K anta gonist therapy: Standard Dose (moderate intensity therapeutic range): 2.0 - 3.0 Higher intensity therapeutic range 2.5 - 3.5 :32 PTT, Activated Comments: PATIENT WAS FASTINGPERFORMED BY: [address] [id number] BY: [address] [id number] aPTT 29 {sec} (Normal) Range: 24-33 Comments: This test has not been validated for monitoring unfractionated heparintherapy. aPTT-based therapeutic ranges for unfractionated heparintherapy have not been established. For general guidelines onHeparin monitoring, refer to the [facility] Directory of Services. Sedimentation 8 mm/h (Normal) Comments: PATIENT WAS FASTINGPERFORMED BY: [place] 2035170 [facility] [id number] BY: [address] [id number] :32 Rate-Westergren Range: 0-30 Vitamin B12 457 pg/mL (Normal) Comments: PATIENT WAS FASTINGPERFORMED BY: [address] [id number] BY: [address] [id number] :32 Range: 211-946 :12 Basic Metabolic Profile (BMP) Comments: Test performed at:[facility] Hfwubzotwx[address] [place] [address] GAP 4 (Abnormal) Range: 5-15 [...] :12 CBC W/Diff, Automated Comments: Test performed at:[facility] Bsqknfpysj[address] [place] [address] Absolute Lymph 1.66 {X10_3/ul} (Normal) Range: 0.83-4.51 [...] 4.4-11.0 :12 Lipid Profile Comments: Test performed at:[facility] [address] [place] [address] VLDL 25 mg/dL (Normal) Range: [...] Risk :12 Liver Profile Comments: Test performed at:[facility] Yyrelsdlbg8144 [facility] [place] [address] D BILI 0.19 mg/dL (Normal) [...] How was Urine Obtained? CLEAN CATCHTest performed at:[facility] Gvwcohnvll6793 [facility] [place] [address] MUCUS, URINE 1+ {/hpf} (Normal) [...] performed using the TPSA assay method for [employer] chemistry system. Values obtained with differentassay methods [...] CHOL 148 mg/dL (Normal) Comments: <200 mg/dL Dpwisfjvd292-675 mg/dL Borderline>240 mg/dL High Risk :09 LIVER BID 0.16 mg/dL (Normal) Range: 0.00-0.30 BIT 0.70 mg/dL (Normal) Range: 0.00-1.00 ALT 21 U/L (Normal) Range: 12-78 ALK 66 U/L (Normal) Range: 45-117 AST 17 U/L (Normal) Range: 15-37 ALB 3.8 g/dL (Normal) Range: 3.4-5.0 TPROT 7.1 g/dL (Normal) Range: 6.4-8.2 :46 PSA (PROSTATE SPECIFIC Comments: screening; PATIENT WAS FASTINGPERFORMED BY: [employer] Upowfp1964 [facility] [id number] ANTIGEN) (V76.44) Prostate Specific Ag, 1.9 ng/mL (Normal) Range: 0.0-4.0 Serum Comments: mywavesIA methodology. .According to the [place] Urological Association, Serum PSA shoulddecrease and remain [...] of malignant disease. :46 URINALYSIS, W/ MICRO (41421) Comments: PATIENT WAS FASTINGPERFORMED BY: [employer]6370 [facility] [id number] Microscopic Examination See below: (Normal) Nitrite, Urine Negative (Normal) Urobilinogen,Semi-Qn 0.2 mg/dL (Normal) Range: 0.0-1.9 Bilirubin Negative (Normal) Occult Blood Negative (Normal) Ketones Trace (Abnormal) Glucose Negative (Normal) Protein Trace (Normal) Appearance Clear (Normal) WBC Esterase Trace (Abnormal) Urine-Color Yellow (Normal) pH 5.5 (Normal) Range: 5.0-7.5 Specific [place] 1.026 (Normal) Range: 1.005-1.030 :46 MICROALBUMIN: CREATININE RATIO Comments: PATIENT WAS FASTINGPERFORMED BY: Remedy PharmaceuticalsBayonne Medical CenterYpsylj7519 [facility] [id number] (86622) AND (39174) Microalb/Creat Ratio 20.0 {mg/g_creat} (Normal) Range: 0.0-30.0 Creatinine, Urine 307.4 mg/dL (Normal) Range: 22.0-328.0 Microalbumin, Urine 61.5 ug/mL (Abnormal) Range: 0.0-17.0 :46 METABOLIC PANEL, COMPREHENSIVE Comments: PATIENT WAS FASTINGPERFORMED BY: [employer] Oqxbtu8898 [address] [facility] HospitalCVN NetworksOn license of [facility] [id number] (97963) ALT (SGPT) 13 [iU]/L (Normal) Range: 0-44 [...] mg/dL (Normal) Range: 65-99 :46 LIPID PANEL (33596) Comments: send results to Dr Peguero; PATIENT WAS FASTINGPERFORMED BY: [employer]6370 [address] [facility] HospitalCVN NetworksOn license of [facility] [id number] LDL Cholesterol Calc 71 mg/dL (Normal) Range: 0-99 LDL/HDL Ratio 1.7 {ratio_units} (Normal) Range: 0.0-3.6 VLDL Cholesterol Sree 23 mg/dL (Normal) Range: 5-40 HDL Cholesterol 43 mg/dL (Normal) Comments: According to ATP-III Guidelines, HDL-C >59 mg/dL is considered anegative risk factor for CHD. Triglycerides 113 mg/dL (Normal) Range: 0-149 Cholesterol, Total 137 mg/dL (Normal) Range: 100-199 09-Egk-99702:46 CBC WITH MANUAL DIFF Comments: PATIENT WAS FASTINGPERFORMED BY: LabMym[facility] Alma6370 [facility] [id number] Information: [id number] (79596) Immature Grans (Abs) 0.0 {x10E3/uL} (Normal) Range: [...] 5.3 {x10E3/uL} (Normal) Range: 4.0-10.5 :46 TSH (45574) Comments: PATIENT WAS FASTINGPERFORMED BY: [facility]6370 [facility] [id number] TSH 1.790 {uIU/mL} (Normal) Range: 0.450-4.500 :46 Microscopic Examination Comments: PATIENT WAS FASTINGPERFORMED BY: [facility]6370 [facility] [id number] Bacteria Few (Normal) Mucus Threads Present (Normal) Crystal Type Calcium Oxalate (Normal) Crystals Present (Abnormal) Epithelial Cells (non renal) 0-10 {/hpf} (Normal) Range: 0 - 10 RBC 0-3 {/hpf} (Normal) Range: 0 - 3 WBC 0-5 {/hpf} (Normal) Range: 0 - 5 :26 MONTSE CULTURE-OTHER (96652) Comments: PATIENT NOT FASTINGPERFORMED BY: [place] 2035170 [facility] [id number] Information: SRC:THRT [id number] Result 1 RRF (Normal) Comments: Routine respiratory sana Upper Respiratory Culture Final report (Normal) 0-Cyj-836412:09 Rapid Strep Test, Office (30239) Rapid Strep Test, Office Negative (Normal) 83-Tsz-553592:04 Microscopic Examination Comments: PATIENT NOT FASTINGPERFORMED BY: [facility]6370 [facility] [id number] Bacteria Few (Normal) Mucus Threads Present (Normal) Crystal Type Calcium Oxalate (Normal) Crystals Present (Abnormal) Epithelial Cells (non renal) None seen {/hpf} (Normal) Range: 0 - 10 RBC 4-10 {/hpf} (Abnormal) Range: 0 - 3 WBC 0-5 {/hpf} (Normal) Range: 0 - 5 98-Dim-250085:04 PSA (PROSTATE SPECIFIC Comments: PATIENT NOT FASTINGPERFORMED BY: [facility]6370 [facility] [id number] ANTIGEN) (V76.44) Prostate Specific Ag, 1.6 ng/mL (Normal) Range: 0.0-4.0 Serum Comments: Dariusz [employer]IA methodology..According to the [place] [employer], Serum PSA shoulddecrease and remain at undetectable levels after radicalprostatectomy. The AUA defines biochemical recurrence a s an initialPSA value 0.2 ng/mL or greater followed by a subsequent confirmatoryPSA value 0.2 ng/mL or greater.Values obtained with different assay methods or kits cannot be usedinterchangeably. Results cannot be interpreted as absolute evidenceof the presence or absence of malignant disease. :04 URINALYSIS ([id number]) Comments: PATIENT NOT FASTINGPERFORMED BY: [employer] [id number] Rowe [facility] HospitalCVN NetworksOn license of [facility] [id number] Information: [id number] Microscopic Examination See below: (Normal) Bilirubin Negative (Normal) Glucose Negative (Normal) Ketones Trace (Abnormal) Nitrite, Urine Negative (Normal) Occult Blood Trace (Abnormal) Urobilinogen,Semi-Qn 0.2 mg/dL (Normal) Range: 0.0-1.9 Protein Trace (Normal) WBC Esterase Negative (Normal) Appearance Clear (Normal) pH 6.0 (Normal) Range: 5.0-7.5 Urine-Color Yellow (Normal) Specific [place] 1.028 (Normal) Range: 1.005-1.030 :04 CBC (Auto) ([id number]) Comments: PATIENT NOT FASTINGPERFORMED BY: [employer] [id number] Rowe [facility] [id number] Platelets 139 {x10E3/uL} (Abnormal) Range: 140-415 Hematocrit 41.1 % (Normal) Range: 36.0-50.0 MCH 30.0 pg (Normal) Range: 27.0-34.0 MCHC 33.8 g/dL (Normal) Range: 32.0-36.0 MCV 89 fL (Normal) Range: 80-98 RDW 13.6 % (Normal) Range: 11.7-15.0 Hemoglobin 13.9 g/dL (Normal) Range: 12.5-17.0 RBC 4.64 {x10E6/uL} (Normal) Range: 4.10-5.60 WBC 5.4 {x10E3/uL} (Normal) Range: 4.0-10.5 18-Lbs-173480:04 Metabolic Panel, Basic Comments: PATIENT NOT FASTINGPERFORMED BY: [facility] [id number] [facility] [id number] ([id number]) Calcium, Serum 9.9 mg/dL (Normal) Range: 8.6-10.2 [...] Glucose, Serum 97 mg/dL (Normal) Range: 65-99 99-Xgc-29994:10 BMP Comments: Please Note: TROPONIN REFERENCE RANGE [...] 3.5-5.1 NA 138 mmol/L (Normal) Range: 136-145 29-Hkn-68724:10 CBCD EOS 1 % (Normal) Range: 0-5 [...] 5 <or= 4AMI > 5 > 4 85-Sub-72976:10 TROPONIN-I < 0.02 ng/mL (Normal) Comments: Please Note: TROPONIN REFERENCE RANGE CHANGEEffective JANUARY 23, 2009. Comments: TROPONIN-I EXPECTED VALUES <0.05 NEGATIVE0.06 - 0.59 AT RISK OF VT> OR = 0.60 SUGGEST VT 81-Dyl-31365:25 CKMB Comments: Please Note: TROPONIN REFERENCE RANGE CHANGEEffective JANUARY 23, 2009. CPK TOTAL 43 U/L (Normal) Range: 35-232 CPKMB < 0.5 ng/mL (Normal) Range: 0.0-5.0 Comments: CK-MB and RI Interpretation MB Relative IndexNon-AMI <or= 5 NAIndeterminate > 5 <or= 4AMI > 5 > 4 82-Dtl-09365:25 TROPONIN-I < 0.02 ng/mL (Normal) Comments: Please Note: TROPONIN REFERENCE RANGE CHANGEEffective JANUARY 23, 2009. Comments: TROPONIN-I EXPECTED VALUES <0.05 NEGATIVE0.06 - 0.59 AT RISK OF VT> OR = 0.60 SUGGEST VT 11-Nsn-359366:10 TROPONIN-I 0.03 ng/mL (Normal) Comments: Please Note: TROPONIN REFERENCE RANGE CHANGEEffective JANUARY 23, 2009. Comments: TROPONIN-I EXPECTED VALUES <0.05 NEGATIVE0.06 - 0.59 AT RISK OF VT> OR = 0.60 SUGGEST VT 87-Ulv-131319:55 CKMB Comments: COMMENTS: ADD TO TROP DRAWN [...] CHOL 108 mg/dL (Normal) Comments: <200 mg/dL Vfsaicrma926-937 mg/dL Borderline>240 mg/dL High Risk :22 LIVER [...] Report See Note (Normal) Comments: Exam Number: [id number] PET CT. CLINICAL STATEMENTPulmonary nodule. Correlation is [...] Report See Note (Normal) Comments: Exam Number: [id number] CT SCAN OF CHEST. HISTORYNeoplasm of uncertain [...] be, measuring 14 ml. The lesion measured sjurecbbdgcbo93 ml in maximum dimension on the biopsy [...] Reported By: DEXTER ANDRADE M.D. :05 TSH ([id number]) Comments: PATIENT WAS FASTINGPERFORMED BY: [employer] [id number] [facility] [id number] TSH 2.084 {uIU/mL} (Normal) Range: 0.350-5.500 Comments: Adult TSH concentrations below 5.5 uIU/mL does not rule out the presence of subclinical hypothyroidism. :05 METABOLIC PANEL, COMPREHENSIVE Comments: PATIENT WAS FASTINGPERFORMED BY: [employer] [id number] [facility] [id number] ([id number]) A/G Ratio 1.7 (Normal) Range: 1.1-2.5 Albumin, [...] Est >60 mL/min (Normal) Range: 60-137 If -Spanish >60 mL/min (Normal) Range: 60-137 Comments: Note: [...] Glucose, Serum 95 mg/dL (Normal) Range: 65-99 02-Hwd-23458:05 CBC WITH MANUAL DIFF ([id number]) Comments: PATIENT WAS FASTINGClinical Information: ADD DRAW FEE [id number] ADD J 12219 PERFORMED BY: [facility] [id number] Baso (Absolute) 0.1 {x10E3/uL} (Normal) Range: 0.0-0.2 [...] (PROSTATE SPECIFIC Comments: PATIENT WAS FASTINGPERFORMED BY: [facility] Alma6370 [facility] [id number] ANTIGEN) (V76.44) Prostate Specific Ag, Serum 2.1 ng/mL (Normal) Range: 0.0-4.0 Comments: [employer] [facility] methodology :16 CHEST, PA AND LATERAL Radiology Report See Note (Normal) Comments: Exam Number: [id number] PA AND LATERAL CHEST HISTORY Being done [...] Report See Note (Normal) Comments: Exam Number: [id number] PERCUTANEOUS LUNG BIOPSY HISTORY The patient has [...] see above. Reported By: VALERIY LAU M.D. 11-Opk-60732:00 TISS/FLUID P-BX/CY (Normal) Comments: OPERATION CT guided [...] 3.5-5.1 NA 137 mmol/L (Normal) Range: 136-145 62-Bjn-33937:45 CBC Comments: COMMENTS: THIS AMPrecautions*: NOT APPLICABLE HCT 30.3 % (Abnormal) Range: 40-54 HGB 10.5 g/dL (Abnormal) Range: 14.0-18.0 MCH 31.4 pg (Normal) Range: 27.0-32.0 MCHC 34.7 g/dL (Normal) Range: 32-36 MCV 90.6 fL (Normal) Range: 80-94 PLT 198 K/mm3 (Normal) Range: 150-450 RBC 3.34 {M/mm3} (Abnormal) Range: 4.6-6.2 RDW 13.2 % (Normal) Range: 11.6-14.6 WBC 10.8 K/mm3 (Normal) Range: 4.4-11.0 03-Kga-547746:22 TURP P-PROS (Normal) Comments: OPERATION Cystoscopy, TUR [...] SJ:van 7 TC:2 REPORT SIGNED: ELIDIA VEGA 06/04/0629-May-20064-Kke-990448:08 CALCULI P-CALC (Normal) Comments: OPERATION Cytoscopy, litholapaxy, [...] analysis. /SJ:cm 06/01/06 REPORT SIGNED: EDITH MORROWI 06/02/0629-May-20063-Vli-882517:34 CALCULI [id number] CA OXAL DIHYDR 30 % (Normal) CA OXAL MONOHYD 60 % (Normal) CA PHOSPHATE 10 % (Normal) COLOR Brown (Abnormal) COMMENT Comment (Normal) Comments: Physician questions regarding Calculi Analysis contactLabCo at: [phone].Performed At: [address] [id number] Comment Comment (Normal) Comments: Percentage (Represents the [...] SED RATE 75 mm/h (Abnormal) Range: 0-20 96-Qpt-814170:05 CPK TOTAL 47 U/L (Normal) Comments: Precautions*: [...] 1.49 INDETERMINANT > OR = 1.50 SUGGEST VT :20 BMP Comments: COMMENTS: IN AMPrecautions*: NOT [...] 1.49 INDETERMINANT > OR = 1.50 SUGGEST VT : BC No growth in 5 days. [...] 1.49 INDETERMINANT > OR = 1.50 SUGGEST VT : TSH 1.05 {uIU/mL} (Normal) Comments: Precautions*: NOT APPLICABLE 50 Range: 0.34-4.82 : VIT B12 1503 396 pg/mL (Normal) Comments: Precautions*: NOT APPLICABLE 50 Range: 211-911 Comments: Performed At: [address] [id number] :50 BMP Comments: COMMENTS: STATPrecautions*: NOT APPLICABLE [...] $$ <=0.5 S TRIMETHOPRIM/SULFAMETHOXAZ $$ >=320 R 37-Fae-558431:15 CULTURE, URINE Comments: COMMENTS: BONEZZIPrecautions*: NOT APPLICABLE [...] COMMENTS: BONEZZIPrecautions*: NOT APPLICABLE :02 (Normal) :02 [facility] Comments: COMMENTS: BONEZZIPrecautions*: NOT APPLICABLE BUN [...] 1.49 INDETERMINANT > OR = 1.50 SUGGEST VT Plan of Care Name Dates Details Instructions [...] bacterial pneumonia Unspecified bacterial pneumonia : Reviewed Range Feeder Letter Indication: Unspecified bacterial pneumonia Hemoptysis : [...] artery disease Coronary artery disease : Reviewed Range Feeder Letter Indication: Coronary artery disease Coronary artery [...] Thrombophlebitis : FOLLOW UP IN 1 WEEK [facility] Indication: Thrombophlebitis folliculitis : Antibiotic Usage Education - Male Indication: folliculitis Other specified viral infection, in conditions classified elsewhere and of unspecified site : IV Indication: Other specified viral infection, in conditions classified elsewhere and of unspecified site BPH : FOLLOW UP IN 1 YEAR Indication: BPH Actinic keratosis : Cryotherapy Indication: Actinic keratosis Planned Observations VITAMIN D, 1, 25-DIHYDROXY (09561)Indication: Vitamin D deficiency On: 2-Qvl-323092:16 Request PSA (PROSTATE SPECIFIC ANTIGEN) (V76.44)Indication: Enlarged prostate with lower urinary tract symptoms On: 6-Chb-663803:16 Request LIPID PANEL (15464)Indication: Hypercholesteremia On: :15 Request METABOLIC PANEL, COMPREHENSIVE (96993)Indication: Hypertension On: :15 Request CBC, PLATELETS & AUT DIFF (25300)Indication: Hypertension On: 5-Dgl-880819:15 Request C-REACT PROT HIGH SENS(hsCRP) (53304)Indication: CRP elevated On: 50-Lhc-762185:01 Request Folate (05274)Indication: Fatigue On: 10-Iit-072875:55 Request Urinalysis, Office (83753)Indication: Hypertension On: 25-Krr-971001:36 Request URINALYSIS, W/ MICRO (92004)Indication: Hypertension On: :58 Request CBC (Auto) (00842)Indication: Hypertension On: :58 Request Metabolic Panel, Basic (90941)Indication: Hypertension On: :58 Request PSA (PROSTATE SPECIFIC ANTIGEN) (V76.44)Indication: Screening for prostate cancer On: :21 Request Comments: do 07-08 URINALYSIS, W/ MICRO (43449)Indication: Hypertension On: :17 Request TSH (04751)Indication: Anxiety On: :18 Request URINALYSIS, W/ MICRO (16518)Indication: Hypertension On: :18 Request METABOLIC PANEL, COMPREHENSIVE (30227)Indication: Hypertension On: :18 Request LIPID PANEL (07898)Indication: Hypertension On: : Request CBC with auto diff (56143)Indication: Hypertension On: : Request PSA (PROSTATE SPECIFIC ANTIGEN) (V76.44)Indication: Encounter for routine history and physical exam for male On: : Request CBC (Auto) (81079)Indication: Hypertension On: : Request Comments: citrate tubes Metabolic Panel, Basic (32580)Indication: Hypertension On: : Request Methymalonic Acid, Serum (33414)Indication: Thrombocytopenia On: :49 Request Vitamin B-12 (cyanocobalamin) (70729)Indication: Thrombocytopenia On: :49 Request Sed Rate Erythrocyte (26521)Indication: Thrombocytopenia On: :49 Request FIBRINOGEN (53762)Indication: Thrombocytopenia On: 7-Wwp-145762:49 Request HELICOBACTER PYLORI ANTIBODY (23369)Indication: Thrombocytopenia On: :49 Request PTT (Activated Partial Thromboplastin Time) (16366)Indication: Thrombocytopenia On: :48 Request PT (Prothrobim Time) (30738)Indication: Thrombocytopenia On: 5-Zho-672558:48 Request HEPATITIS C ANTIBODY (60852)Indication: Thrombocytopenia On: 2-Jya-712889:48 Request HEPATITIS B CORE ANTBD-IGG/IGM (88612)Indication: Thrombocytopenia On: 0-Rut-192487:48 Request HEPATITIS B SURFACE ANTIGEN (36232)Indication: Thrombocytopenia On: 8-Orj-845980:48 Request HEPATITIS B SURFACE ANTIBODY (63984)Indication: Thrombocytopenia On: 2-Ntr-052463:48 Request CBC W/AUTO DIFF WBC (84073)Indication: Thrombocytopenia On: 4-Uhz-633441:41 Request Comments: citrate tube CBC WITH MANUAL DIFF (72167)Indication: Thrombocytopenia On: 37-Wmv-99179:42 Request Comments: DRAW IN CITRATE TUBE PLEASErecheck before next follow up in Feb 2014 Metabolic Panel, Basic (37446)Indication: Hypertension On: 5-Oiq-112194:33 Request Comments: copy to [facility] HEPATIC FUNCTION PANEL (20434)Indication: Hypertension On: :33 Request LIPID PANEL (75712)Indication: Hypercholesteremia On: 9-Rvr-625342:32 Request URINALYSIS, W/ MICRO (48831)Indication: Hypertension On: 9-Vjw-765703:32 Request CBC (Auto) (83967)Indication: Hypertension On: 7-Xel-179587:32 Request PSA (PROSTATE SPECIFIC ANTIGEN) (V76.44)Indication: Encounter for routine history and physical exam for male On: 3-Acc-127815:02 Request CBC (Auto) (05236)Indication: Hypertension On: 08-Jul-2011 Request Metabolic Panel, Basic (37265)Indication: Hypertension On: 08-Jul-2011 Request URINALYSIS, W/ MICRO (04450)Indication: Hypertension On: 08-Jul-2011 Request URINALYSIS W/O MICRO (34650)Indication: Essential hypertension, malignant On: 1-Aft-479770:00 Request TSH (85457)Indication: Essential hypertension, malignant On: 5-Nwb-828392:00 Request METABOLIC PANEL, COMPREHENSIVE (86186)Indication: Essential hypertension, malignant On: 7-Esy-383449:00 Request CBC WITH MANUAL DIFF (16605)Indication: Essential hypertension, malignant On: 8-Iti-727952:00 Request PSA (PROSTATE SPECIFIC ANTIGEN) (V76.44)Indication: BPH On: 4-Cuc-547710:59 Request CBC (Auto) (87751)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, unspecified On: :51 Request PTT (Activated Partial Thromboplastin Time) (63095)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, unspecified On: :50 Request Comments: drawn in office today PT (Prothrobim Time) (48110)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, unspecified On: :50 Request Comments: drawn in office URINALYSIS (33218)Indication: Hypertension On: :38 Request METABOLIC PANEL, BASIC (70373)Indication: Hypertension On: 82-Rwv-05116:37 Request Planned Procedures Aerosol Treatment (76193)By: Evonne On: 28-Dec-2017 Rosana Mark DO, DO, Kathleen Comments: no wheeze adn better a/e after treatment COMPUTED TOMOGRAPHY ANGIOGRAPHY OF On: 15-Dec-2017 Intent CHEST FOR PULMONARY EMBOLISM Comments: STAT ORDER PLEASE PHONE RESULTS TO GABY RO AT [phone] (94410)By: Gaby Ro CNP CTA OF CHEST WITHOUT THEN WITH On: 15-Dec-2017 Intent CONTAST AND POST-PROCESSING (96517)By: Gaby Ro CNP COMPUTED TOMOGRAPHY OF CHEST FOR On: 15-Dec-2017 Intent PULMONARY EMBOLISM (97152)By: Marjorie Comments: stat stat stat Gaby DOMINGUEZ Solu -Medrol Injection, 125 mg On: 14-Dec-2017 Intent (J2930)By: Gaby Ro CNP Spirometry (15465)By: Marjorie DOMINGUEZ, On: 14-Dec-2017 Intent Gaby Torrez Comments: Moderate Airway obstruction CHEST XRAY, PA & LATERAL (88069)By: On: 14-Dec-2017 Intent Gaby Ro CNP Aerosol Treatment (45991)By: Marjorie On: 14-Dec-2017 Gaby Mark CNP Radiology - Chest- PA and LatBy: On: 31-Dec-2016 Intent Rosana Davis DO, DO, Comments: fu on pneumonia -- do towards end january Rosana Radiology - Chest- PA and LatBy: On: 04-Jul-2016 Intent Rosana Davis DO, DO, Kathleen Flu Vaccine (Quadrivalent) 57447Ix: On: 12-Nov-2015 Intent Visit, Nurse Comments: Lot #[id number]/30/17ite-L dltd, IMDose prefilled syringegiven by:MORENA VillaltaNVIS and ABN signed US DOPPLER CAROTID BILATERAL On: 22-Aug-2015 Intent (92373)By: Wes Hernandez MD Comments: bilateral PFT - CompleteBy: Wes Hernandez MD On: 24-Jul-2015 Intent CAROTID DUPLEX EXAMINATION On: 24-Jul-2015 Intent (26750)By: Wes Hernandez MD Radiology - Chest- PA and LatBy: On: 19-Mar-2015 Intent Fast DO, Torie A Comments: stat PNEUM VAC ADLT/IMUMNOSPR, SBC/INTRM On: 23-Jan-2015 Intent (80651)By: Parul Rice MD ADMINISTRATION OF PNEUMOCOCCAL On: 23-Jan-2015 Intent VACCINE (G0009)By: Parul Rice MD PNEUM VAC ADLT/IMUMNOSPR, SBC/INTRM On: 23-Jan-2015 Intent (94283)By: Parul Rice MD Flu Vaccine (Quadrivalent) 78837Jj: On: 23-Jan-2015 Intent Parul Rice MD Comments: lot [id number]: 08/23/2015site/route L tarsha, IMamt 0.5mlVIS and ABN signed when applicableChrissie, RUSSELL ELECTROCARDIOGRAM, COMPLETE (ECG) On: 25-Jul-2014 Intent (78836)By: Parul Rice MD Prevnar 13 (02177)By: Dwayne GARCIA, On: 31-Jan-2014 Intent Parul Edwards Comments: [id number] arm, IMMegan Solu -Medrol Injection, 125 mg On: 31-Aug-2013 Intent (J2930)By: Marjorie DOMINGUEZ Gaby Torrez Comments: [id number], 2mlMegan Eprescribed prescriptions On: 25-Jul-2013 Intent (G8553)By: Parul Rice MD FLU VAC, SPLIT, >3 YEARS, INTRAMUSC On: 04-Nov-2012 Intent (25541)By: Parul Rice MD Comments: lot [id number] 2014site/route L tarsha, IMamt 0.5mlVIS and ABN signed when applicableChelsea, RUBBER TURNER ADMINISTRATION OF INFLUENZA VIRUS On: 04-Nov-2012 Intent VACCINE (G0008)By: Yesy Hagan Pulse Oximetry (41592)By: Caleb On: 22-Oct-2012 Intent JOHANA Esophagram with a cookie swallow On: 10-Aug-2012 Intent using the tablet.By: Dwayne GARCIA, Comments: see Dr. araseli Edwards EKG (48869)By: Rosana Davis DO On: 17-Mar-2012 Intent Rosana Davis DO Comments: nsr no acute cgh Eprescribed prescriptions On: 17-Mar-2012 Intent (G8553)By: Rosana Davis DO, DO, Kathleen FLU VAC, SPLIT, >3 YEARS, INTRAMUSC On: 14-Nov-2011 Intent (02438)By: Polly Sutton Comments: Lot:[id number]:prefilledRoute:IMSite:L DltdGiven By:CHARLA signed ADMINISTRATION OF INFLUENZA VIRUS On: 14-Nov-2011 Intent VACCINE (G0008)By: Polly Sutton FLU VAC, SPLIT, >3 YEARS, INTRAMUSC On: 18-Nov-2010 Intent (38211)By: Wendy Johnson LPN Comments: Lot #[id number]-L arm IMDose prefilledgiven by:Wendy ADMINISTRATION OF INFLUENZA VIRUS On: 18-Nov-2010 Intent VACCINE (G0008)By: Wendy Johnson LPN ADMINISTRATION OF INFLUENZA VIRUS On: 27-Nov-2009 Intent VACCINE (G0008)By: Wendy Johnson LPN Comments: Lot #[id number]/11Site-L armDose0.5mlgiven by:ANDRAE Drew FLU VAC, SPLIT, >3 YEARS, INTRAMUSC On: 27-Nov-2009 Intent (29262)By: Wendy Johnson LPN Doppler Ultrasound OtherBy: Ciesa On: 24-Jul-2009 Intent Gaby DOMINGUEZ Comments: call with lizett acharya, Left leg today FLU VAC, SPLIT, >3 YEARS, INTRAMUSC On: 23-Nov-2008 Intent (89483)By: Juany Harrison RN ADMINISTRATION OF INFLUENZA VIRUS On: 23-Nov-2008 Intent VACCINE (G0008)By: Juany Harrison RN ADMINISTRATION OF PNEUMOCOCCAL On: 25-Jul-2008 Intent VACCINE (G0009)By: Torie Fletcher DO PNEUM VAC ADLT/IMUMNOSPR, SBC/INTRM On: 25-Jul-2008 Intent (25765)By: Torie Fletcher DO Comments: Lot #: [id number] date: mount given: 0.5 mlRoute: IMSite given: Left deltoidGiven by: Prateek Chung LPN PET ScanBy: Fast DO, Torie A On: 09-Jul-[address] - ChestBy: Fast DO Torie A On: 23-Jun-2007 Intent Ultrasound - RenalBy: Fast DO, On: 23-Jun-2007 Intent Torie Chandra Bio Z (76814)By: Chayo Lorenz On: 23-Jun-2007 Intent Spirometry (51809)By: Dwayne GARCIA, On: 04-Aug-2006 Intent Parul Edwards Pulse Oximetry (67341)By: Dwayne On: 04-Aug-[address] - Chest (IV Contrast Needed)By: On: 04-Aug-2006 Intent Parul Rice MD Comments: PLAN NEEDLE GUIDED BIOPSY OF NODULE/MASS BY DR KURT Castellonan Injection, up to 50 mg On: 15-May-2006 Intent (J2550)By: Parul Rice MD DESTROY BENIGN/PREMALIG LESION, 1ST On: 13-Nov-2005 Intent (17240)By: Parul Rice MD Planned Medications INJECTION, METHYLPREDNISOLONE [...] of lung cancer sees Dr. Lam at [facility] , sees once a year. Saw [...] is transitioning into care from a hospital ([facility] for pneumonia and a sbo) and [...] The patient does have durable power of trade mark attorney and living will. The patient has noticed lack of energy. Other providers contributing to the patient's care are endodontic assistant (Aylin).Encounter Diagnosis: BMI 30.0-30.9,adult, Nonsmoker, Vision abnormalities, [...] The patient does have durable power of trade mark attorney and living will. The patient has noticed nothing from the geriatic depression scale. O ther providers contributing to the patient's care are endodontic assistant. Encounter Diagnosis: Hypertension 401.1 (Renamed from Hypertension [...] (211.3), Lung nodule (518.89), hernia repair right, qzexagyydm37, Actinic keratosis (702.0), hemmorhiodectomy, BPH, Hypertension 401.1 [...] is keeping close followup with doctors at [facility]- on this-- hedidnt have to danielle ve [...] get colonsocopy so will send back to [facility] to do, [ADDITIONAL REASON] Cough [...] ago-- has appt with heart doctor in [facility] Diagnosis: GERD (530.81), Depression (311.), [...] STATUS (V45.81), hernia repair right, tonsillectomy, hemmorhiodectomy, ywehwqmfxk33, Actinic keratosis (702.0) [facility] Office Visit On: 12-Nov-2005 12:16 [facility] End: 12-Nov-2005 12:34 Payers MedicareAmerican Republic Tess/Silvestre Vann; a guarantor
--- OUTSIDE RECORDS SUMMARY | 2018-05-13 10:06 | XMS RPT_ITS | Continuity of Care Document ---
:1940 Author Organization [facility] Address [address] [facility] [address] [place] [address] Phone Care Team Providers Name Role Phone Rosana Davis DO Unavailable [facility] Unavailable Gato Dickinson MD Unavailable [...] diet and exercise.Patient has durable power of environmental attorney and living will. Status: Active Anxiety [...] (R06.00, 786.09) Comments: Spirometry:Moderate obstructive AW disease.See aba tutor Dr Doty for lung cancer s/p surgery [...] month, next appt in [place] in [facility], started HCTD 03/10, stableStable at home:125/60, 92962/60, 120/65 Status: Active Impaired fasting glucose (R73.01, [...] more in winterNo wheezeHAs allergiesHas rescue inhalor, [facility] says COPD and gets Inhalors from there [...] : 08-Aug-2015 End : 07-Sep-2015 Inactive ZOSTAVAX, 16862FPW/0.65ML (Subcutaneous Solution Reconstituted) 1 For Solution once [...] likely pass creat good send report to [facility] Status: Inactive as of 10-Aug-2012 [id number] Status: Inactive as of 10-Aug-2012 Diverticulitis (K57.92, 562.11) Comments: on atb pain getting better if pain not all the way resolve ? kidney stones and back to [place] Status: Inactive as of 10-Aug-2012 Dysphagia, unspecified [...] few CT scan of chest up at [facility] see Dr. Genaro santana. will send [...] W/WO Contrast Result: Comments: See Note; NOTES: [facility] Imaging Services [address] [address] CTA Chest W/WO Contrast MR#: [id number] Acct: [id number] Name: GEORGE VANN Rep #: [id number] : 1940 M 77 From: Prasanna Lr MD PCP: Rosana Davis DO Status: REG CLI Study: CTA Chest W/WO Contrast Date of Exam: 12/15/17 Exam# [id number] Ordering Dr: Gaby Ro RECRUITING MANAGER-C STUDY: CTA CHEST REASON FOR EXAM: [...] CC: Gaby Ro NP; Rosana Davis DO Direct Entry Midwife: Signed 14-Dec-2017 Chest PA and Lateral Result: Comments: See Note; NOTES: [facility] Imaging Services [address] [place] [address] Chest PA and Lateral MR#: [id number] Acct: [id number] Name: GEORGE VANN Rep #: [id number] : 1940 M 77 From: Jevon Back MD PCP: Rosana Davis DO Status: REG CLI Study: Chest PA and Lateral Date of Exam: 12/14/17 Exam# [id number] Ordering Dr: Gaby Ro RECRUITING MANAGER-C STUDY: X-RAY CHEST REASON FOR EXAM: [...] CC: Gaby Ro NP; Rosana Davis DO Direct Entry Midwife: Signed 10-Sep-2017 Cardiology Visit Report Result: Comments: See Note; NOTES: [facility] [address] [place] [address]. [address] [place] [address] OFFICE VISIT Date of Service: 09/10/17 MR#: [id number] Acct: [id number] Name: GEORGE VANN Rep #: [id number] : 1940 Provider: Butch Peres MD Age/Sex: 76/M Location: [facility] Status: Signed HPI HPI Chief Complaint: Follow up visit Details: GEORGE VANN, is a 76 M who presents to [facility] office today for a cardiovascular follow-up. [...] Pressure 132/8 Intake Visit Reasons: 6 M Veterinary Medicine Doctor Required: No Accompanied by: none Is patient [...] PFSH Medical History Atherosclerotic heart disease of [place] coronary artery without angina pectoris (Chronic) HLD [...] descendi ng artery and CX @ [facility] 07/20/2003; Plan He is status post coronary [...] Visit Report Result: Comments: See Note; NOTES: [facility] Services [address] [place] [address] OFFICE VISIT Date of Service: 03/13/17 MR#: [id number] Acct: [id number] Patient: GEORGE VANN Rep #: [id number] : 1940 Provider: Rossana You Age/Sex: 76/M [place] [facility] [place] Status: Signed Intake Vital Signs03/13/17 Height 5 ft 10 in 03/13/17 Blood Pressure 140/72 03/13/17 Blood Pressure Location Lt brachial Intake Visit Reasons: 2 wk bp ck per MMM Veterinary Medicine Doctor Required: No Accompanied by: None Is patient [...] Visit Report Result: Comments: See Note; NOTES: [facility] [place] [address] [facility] [place] [address] OFFICE VISIT Date of Service: 02/27/17 MR#: [id number] Acct: [id number] Name: GEORGE VANN Rep #: [id number] : 1940 Provider: Rossana You Age/Sex: 76/M Location[place] [facility] [place] Status: Signed HPI 6 M FU: Details: [...] 02/27/17] Ejection fraction %: 60 to [facility] Medical History Atherosclerotic heart disease of [place] coronary artery without angina pectoris (Chronic) HLD [...] Cardiology Exam Const Appearance: cooperative, no ac [place] distress and well developed Orientation: alert, awake [...] affect Assessment AND Plan 1. Atherosclerosis of [place] coronary artery of [place] heart without angina pectoris I25.10; I25.10; I25.10 CA BG x6: JUAREZ sequentially to Ramus Intermedius and first diagonal, BUD to LAD, SVG to diagonal 2, SVG sequentially to posterior descending artery and CX @ [facility] 07/20/2003; [facility] 01/07/2005. Plan - DILCIA Trin[place] [...] prior to saving. 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 He is followed at the [facility] in [place] for surveillance of his lung cancer. ED [...] everal years. He is followed at the [facility] in [place] for surveillance of his lung . cancer. [...] enema. The patient is a greeable to [facility]. He did receive empiric treatment for [...] cancer status post lobectomy left, treated at [facility], bladder tumor, stable Plan: Observe on telemetry Gentle hydration Gentle soapsuds enema Liquid diet as tolerated, may advance as tolerated Repeat lactic acid Hold parameters placed on blood pressure medication s (hold for systolic blood pressure less than 120) DVT prophylaxis with subcu heparin Plan of care discussed with patient and at bedside who voiced understanding 12/11/16 2919 <Electronic ally signed by Marie Edmond MD> Date Marie Edmond MD Cosigner Signature (if applicable): Date __ CC: Marie Edmond MD; Rosana Davis DO Signed 11-Dec-2016 Emergency Department Summary Result: Comments: See Note; NOTES: [facility] Medical Records Department [address] [place] [address] Emergency Department Summary 12/11/16 1604 MR#: [id number] Acct: [id number] Name: GEORGE VANN Rep #: [id number] : 1940 76 From: Sumanth Franco MD [...] problems, contact your Primary Care Provider. Call [facility] ([phone]) or report to the closest Emergency Room. Call 911 if necessary. 12/11/16 1016 <Electronically signed by Sumanth Franco MD> Date Sumanth Franco MD Cosigner Signature (If Indicated): Date CC: Rosana Davis DO 11-Dec-2016 Abdomen/Pelvis WITH Contrast Result: Comments: See Note; NOTES: [facility] Imaging Services [address] [place] [address] Abdomen/Pelvis WITH Contrast MR#: [id number] Acct: [id number] Name: GEORGE VANN Rep # : [id number] : 1940 M 76 From: Jake Bazzi MD PCP: Rosana Davis DO Status: [facility] Study: Abdomen/Pelvis WITH Contrast Date of Exam: 12/11/16 Exam# [id number] Ordering Dr: Sumanth Franco MD STUDY: CT [...] Jake harry MD at 16:07 EDT Tel [phone], Service support , CC: Rosana Davis DO; Sumanth Franco MD Direct Entry Midwife: Signed 11-Dec-2016 Chest 1 View (Portable) Result: Comments: See Note; NOTES: [facility] Imaging Services [address] [place] [address] Chest 1 View (Portable) MR#: [id number] Acct: [id number] Name: GEORGE VANN Rep #: [id number] : 1940 M 76 From: Jake Bazzi MD PCP: Rosana Davis DO Status: [facility] ER Study: Chest 1 View (Portable) Date of Exam: 12/11/16 Exam# [id number] Ordering Dr: Sumanth Franco MD STUDY: X-RAY [...] Alexis Bazzi MD at 14:43 EDT Tel [phone], Service support , CC: Rosana Davis DO; Sumanth Franco MD Direct Entry Midwife: Signed 21-Aug-2016 Operative Report Result: Comments: See Note; NOTES: [facility] Medical Records Department [address] [place] [address] Operative Report 08/21/16 1138 MR#: [id number] Acct: [id number] Name: YOUNG VANN THELMA Edwards Rep #: [id number] : 1940 75 From: Butch Peres MD [...] and Lateral Result: Comments: See Note; NOTES: [facility] Imaging Services [address] [place] [address] Verdana 4d Chest PA and Lateral MR#: [id number] Acct: [id number] Name: GEORGE VANN p #: [id number] : 1940 M 75 From: Ari Baker MD PCP: Rosana Davis DO Status: REG CLI Study: Chest PA and Lateral Date of Exam: 07/04/16 Exam# [id number] Ordering Dr: Rosana Davis DO STUDY: X-RAY [...] Service support , CC: Rosana Davis DO Direct Entry Midwife: Signed 04-Jul-2016 Chest PA and Lateral Result: Comments: See Note; NOTES: [facility] Imaging Services [address] [place] [address] Verdana 4d Chest PA and Lateral MR#: [id number] Acct: [id number] Name: GEORGE VANN #: [id number] : 1940 M 75 From: Ari Baker MD PCP: Rosana Davis DO Status: REG CLI Study: Chest PA and Lateral Date of Exam: 07/04/16 Exam# [id number] Ordering Dr: Rosana Davis DO ADDENDUM by Ari Baker on 07/04/16 at 2357 RAD/Chest PA and Lateral IMPRESSION: There are no acute findings. Electronically Signed: Ari Baker MD at 23:57 EDT Tel , Service support , 07/05/16 0004 Date cc: Rosana Davis DO * Signed ADDENDUM by Ari Baker on 07/04/16 at 6761 ADDENDUM STUDY: X-RAY CHEST REASON FOR EXAM: [...] tissue structures of the upper abdomen. 07/04/16 1200 Date cc: Rosana ac DO * Signed [...] Service support , CC: Rosana Davis DO Direct Entry Midwife: Signed 08-Feb-2016 Kidney and Bladder Result: Comments: See Note; NOTES: [facility] Imaging Services [address] [place] [address] Verdana 4d Kidney and Bladder MR#: [id number] Acct: [id number] Name: KATYGEORGE Jerry Rep #: [id number] : 1940 75 From: Jake Bazzi MD PCP: Wes Hernandez Status: REG CLI Study: Kidney and Bladder Date of Exam: 02/08/16 Exam# [id number] Ordering Dr: Yandel Murrieta MD STUDY: RENAL [...] Jake Bazzi MD at 15:02 EST Tel [phone], Service support [phone], CC: Yandel Murrieta MD; Wes Hernandez Direct Entry Midwife: Signed 01-Feb-2016 6 Minute Walk Test Result: Comments: See Note; NOTES: [facility] Pulmonary Services/Neurology [address] [place] [address] MR#: [id number] Acct: [id number] Name: GEORGE VANN Rep #: [id number] : 1940 75 From: Sigifredo Best DO Referring Dr: Liliam Mcintosh NP Date: Ordering Dr: Marck: Jerry Hugo Location: PSN PSN 6 Minute Walk Test - 6 Minute Walk Test 6 Minute Walk Test: 6 Minute Walk Test P SN:6-Minute Walk Test Start: 01/31/16 12:55 Freq: Status: Active Document 01/31/16 12:55 SFENTON (Rec: 01/31/16 13:03 SFENTON [id number]) 6 Minute Walk Test Date Performed 01/31/16 [...] he will not wear it. Liliam Mcintosh RECRUITING MANAGER is aware. Initialized on 01/31/16 12:58 [...] CC: Date Dictated: 02/01/16826 Date Transcribed: 02/01/16826 Direct Entry Midwife: Sigifredo Best DO Signed 10-Dec-2015 Operative Report Result: Comments: See Note; NOTES: [facility] Medical Records Department [address] [place] [address] Operative Report MR#: [id number] Acct: [id number] Name: GEORGE VANN Jerry Rep #: [id number] : 1940 75 From: Yandel Murrieta MD PCP: Wes Hernandez Status: [facility] DATE OF SERVICE: 12/07/2015 DATE [...] get into the distal ureter with an 8-Nigerian flexible ureteroscope and we performed ureteroscopy and [...] up. Yandel Murrieta MD T: NTS JOB: [id number] 12/10/15 0800 <Electronically signed by Yandel Murrieta MD> Date Yandel Murrieta MD Cosigner Signature (If Indicated): Date CC: Yandel Murrieta MD; Wes Hernandez Date Dictated: 0 Date Transcribed: 12/07/151449 Direct Entry Midwife: Signed 08-Dec-2015 Emergency Department Summary Result: Comments: See Note; NOTES: [facility] Medical Records Department [address] [place] [address] Emergency Department Summary 12/08/15 1208 MR#: [id number] Acct: [id number] Name: GEORGE VANN Rep #: [id number] : 1940 75 From: Sumanth Franco MD [...] problems, contact your Primary Care Provider. Call [facility] ([phone]) or report to the closest Emergency Room. Call 911 if n ecessary. 12/08/15 9333 <Electronically signed by Sumanth Franco MD> Date Sumanth Franco MD Cosigner Signature (If Indicated): Date __ CC: Wes Hernandez; Valeriy Bravo MD 08-Dec-2015 CTA Chest W/WO Contrast Result: Comments: See Note; NOTES: [facility] Imaging Services [address] [place] [address] Verdana 4d CTA Chest W/WO Contrast MR#: [id number] Acct: [id number] Name: GEORGE VANN Rep #: [id number] : 1940 M 75 From: Mariusz Goodson MD PCP: Wes Hernandez Status: REG ER Study: CTA Chest W/WO Contrast Date of Exam: 12/08/15 Exam# [id number] Ordering Dr: Sumanth Franco MD STUDY: CTA [...] at 15:16 EDT Tel , Service support [phone], CC: Wes Hernandez; Sumanth Franco MD Direct Entry Midwife: Signed 08-Dec-2015 Chest PA and Lateral Result: Comments: See Note; NOTES: [facility] Imaging Services [address] [place] [address] Verdana 4d Chest PA and Lateral MR#: [id number] Acct: [id number] Name: GEORGE VANN #: [id number] : 1940 M 75 From: Poornima Mohan MD PCP: Wes Hernandez Status: REG ER Study: Chest PA and Lateral Date of Exam: 12/08/15 Exam# [id number] Ordering Dr: Sumanth Franco MD STUDY: X-RAY [...] MD at 12:52 EDT , Service support [phone], CC: Wes Hernandez ; Sumanth Franco MD Direct Entry Midwife: Signed 07-Dec-2015 Operative Report Result: Comments: See Note; NOTES: [facility] Medical Records Department [address] [place] [address] Operative Report 12/07/15 1442 MR#: [id number] Acct: [id number] Name: ARIE VANN Rep #: [id number] : 1940 75 From: Yandel Murrieta MD PCP: Wes Hernandez Status: [facility] Y Location: [place] [address] Report of Operation Date of Procedure: 12/07/15 [...] Discharge Instruction Result: Comments: See Note; NOTES: [facility] Medical Records Department [address] [place] [address] Instructions for Home/Discharge Instructions 12/07/15 1300 MR#: [id number] Acct: [id number] Name: GEORGE VANN Rep #: [id number] : 1940 75 From: Yandel Murrieta MD PCP: Wes Hernandez Status: REG [facility] Discharge Diet: Light diet - [...] Single View Result: Comments: See Note; NOTES: [facility] Imaging Services [address] [place] [address] Verdana 4d Abdomen Single View MR#: [id number] Acct: [id number] Name: GEORGE VANN p #: [id number] : 1940 75 From: Gilbert Kyle MD PCP: Wes Hernandez Status: [facility] Study: Abdomen Single View Date of Exam: 12/07/15 Exam# [id number] Ordering Dr: Yandel Murrieta MD STUDY: X [...] at 12:22 EDT Tel , Service support [phone], CC: Yandel Murrieta MD; Wes Hernandez Direct Entry Midwife: Signed 29-Aug-2015 Carotid Duplex Ultrasound Result: Comments: See Note; NOTES: [facility] Cardiovascular Services [address] [place] [address] Carotid Duplex Ultrasound 08/28/15 1255 MR#: [id number] Acct: [id number] Name: GEORGE VANN Rep #: [id number] : 1940 74 From: Manny Rodriguez MD [...] Dictated: 08/27 1255 Date Transcribed: 08/29/15 1122 Direct Entry Midwife: Signed 09-Aug-2015 Echocardiogram Complete Result: Comments: See Note; NOTES: [facility] Cardiovascular Services [address] [place] [address] Echo Complete 08/09/15 1357 MR#: [id number] Acct: [id number] Name: LOUISE GRADYGEORGE Jeryr Rep #: [id number] : 1940 74 From: Butch Peres MD [...] d: 08/09/15 1357 Date Transcribed: 08/09/15 1527 Direct Entry Midwife: Signed 07-Aug-2015 Chest PA and Lateral Result: Comments: See Note; NOTES: [facility] Imaging Services [address] [place] [address] Verdana 4d Chest PA and Lateral MR#: [id number] Acct: [id number] Name: GEORGE VANN Rep #: [id number] : 1940 M 74 From: Jake Bazzi MD PCP: Wes Hernandez Status: REG CLI Study: Chest PA and Lateral Date of Exam: 08/07/15 Exam# [id number] Ordering Dr: Butch Peres MD STUDY: X-RAY [...] Jake Bazzi MD at 11:08 EDT Tel [phone], Service support [phone], RAD/Chest PA and Lateral IMPRESSION: Stable examination. Electronically Signed: Jake Bazzi MD at 11:08 EDT Tel [phone], Service support [phone], CC: Wes Hernandez Direct Entry Midwife: Signed 24-Jul-2015 Spirometry (64423) Result: 19-Mar-2015 Chest PA and Lateral Result: Comments: See Note; NOTES: [facility] Imaging Services [address] [place] [address] Verdana 4d Chest PA and Lateral MR#: [id number] Acct: [id number] Name: GEORGE VANN Rep #: [id number] : 1940 M 74 From: Peggy Mari MD PCP: Parul Rice MD Status: REG CLI Study: Chest PA and Lateral Date of Exam: 03/19/15 Exam# [id number] Ordering Dr: Torie Fletcher DO STUDY: X-RAY [...] at 19:14 EST Tel , Service support [phone], RAD/Chest PA and Lateral IMPRESSION: Suspect COPD. There appear stable dense right lung nodules. No demonstrated acute cardiopulmonary process. Electronically Signed: Peggy Mari MD at 19:14 EST Tel , Service support [phone], CC: Parul Rice MD; Torie Fletcher DO Direct Entry Midwife: Signed 11-Oct-2014 Carotid Duplex Ultrasound Result: Comments: See Note; NOTES: [facility] Cardiovascular Services [address] [place] [address] Carotid Duplex Ultrasound 10/11/14 0906 MR#: [id number] Acct: [id number] Na me: GEORGE VANN Rep #: [id number] : 1940 73 From: Manny Rodriguez MD [...] vertebral artery. Acoustic shadowing. Procedure Carotid Duplex 16537. The exam was diagnostic. Exam performed in [...] Dictated: 10/11/14 0906 Date Transcribed: 10/11/14 1037 Direct Entry Midwife: Signed 01-Sep-2014 Esophagus Only Result: Comments: See Note; NOTES: [facility] Imaging Services [address] [place] [address] Radiology Report MR#: [id number] Acct: [id number] Name: GEORGE VANN Rep #: [id number] : 1940 M 73 From: Jake aBzzi MD PCP: Parul Rice MD Status: REG CLI Study: Esophagus Only Date of Exam: 09/01/14 Exam# [id number] Ordering Dr: Gato Willson MD STUDY: X-RAY [...] Jake Bazzi MD at 9:22 EDT Tel [phone], Servi ce support [phone], RAD/Esophagus Only IMPRESSION: Moderate sized hiatal hernia with no evidence of gastroesophageal reflux. 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 Exercise History Comments: Light [...] Area Calculated 2.14 m2 :27 Comments: not POARCH Temperature 98.6 f Pulse 76 /min Comments: [...] Sputum Culture Comments: PATIENT NOT FASTINGPERFORMED BY: [facility]Gummii70 [facility] [id number] Result 1 RRF (Normal) Comments: Routine respiratory sana Lower Respiratory Culture Final report (Normal) :06 Metabolic Panel, Comprehensive Comments: PATIENT NOT FASTINGPERFORMED BY: [facility] Equwof4095 [address] [facility] [id number] ([id number]) ALT (SGPT) 11 [iU]/L (Normal) Range: 0-44 [...] 8-27 Glucose 133 mg/dL (Abnormal) Range: 65-99 80-Vsj-534111:06 CBC, Platelets & Auto Diff Comments: PATIENT NOT FASTINGPERFORMED BY: [facility] Jcrmzb8797 [facility] [id number] (72019) Immature Grans (Abs) 0.0 {x10E3/uL} (Normal) Range: [...] 4.14-5.80 WBC 9.5 {x10E3/uL} (Normal) Range: 3.4-10.8 83-Gak-86844:31 Sputum Culture (50140) Comments: PATIENT NOT FASTINGPERFORMED BY: [facility] 1469870 [facility] [id number] Information: SRC:SP Gram Stain Evaluation GSACC (Normal) Comments: This specimen is of good quality and is acceptable for routinebacterial culture. Result 1 PCF (Normal) Comments: Few gram positive cocciModerate amount of gram variable coccobacilli Epithelial Cells None seen (Normal) White Blood Cells None seen (Normal) 66-Bqr-987971:06 D-Dimer (08481) Comments: PATIENT NOT FASTINGPERFORMED BY: [facility]6370 [facility] [id number] D-Dimer 0.95 {mg/L_FEU} (Abnormal) Range: 0.00-0.49 Comments: According to the assay pluck trimmer's published package insert, anormal (<0.50 mg/L FEU) D-dimer result in conjunction with a non-highclinical probability assessment, excludes deep vein thrombosis (D VT)and pulmonary embolism (PE) with high sensitivity. .D-dimer values increase with age and this can make VTE exclusion ofan older pop ulation difficult. To address this, the [employer], based on best available evidence [...] 0.80 mg/L FEU. :58 Lipid Profile Comments: [facility] [address] [place], [place], [address] VLDL 21 mg/dL (Normal) Range: 5-40 LDL [...] mg/dL High Risk :58 Liver Profile Comments: [facility] [address] [place], [place], [address] D BILI 0.12 mg/dL (Normal) Range: 0.00-0.30 T BILI 0.50 mg/dL (Normal) Range: 0.20-1.00 ALT 17 U/L (Normal) Range: 16-61 ALK P 71 U/L (Normal) Range: 45-117 AST 16 U/L (Normal) Range: 15-37 GLOB 3.8 g/dL (Normal) Range: 2.2-4.2 ALB 3.6 g/dL (Normal) Range: 3.2-5.0 T PROT 7.4 g/dL (Normal) Range: 6.4-8.2 8-Bye-452388:32 LACTATE (LACTIC ACID) (73585) Comments: PATIENT NOT FASTINGPERFORMED BY: [facility] Hduouk3380 [facility] [id number] Lactic Acid, Plasma 12.4 mg/dL (Normal) Range: 4.8-25.7 82-Dzu-016608:30 Lactic Acid Comments: Yes/No query for Sepsis Lactate Rule [facility] [address] [place], [id number] LACTIC ACID 2.3 mmol/L (Abnormal) Range: 0.4-2.0 Comments: Critical Result(s) Called at: 15:11:26 12/11/2016 by:Christen Moralez to [facility] 67-Hdo-980684:00 Basic Metabolic Profile (BMP) Comments: [facility] [address] [place], [place], [id number] GAP 10 (Normal) Range: 5-15 CO2 27.0 [...] 126 mg/dLsuggests DIABETES MELLITUS per A.D.A. criteria. 05-Hlq-259680:00 CBC W/Diff, Automated Comments: [facility] [address] [place], [id number] Absolute Lymph 2.89 {X10_3/ul} (Normal) Range: 0.83-4.51 [...] 4.6-6.2 WBC 9.9 K/mm3 (Normal) Range: 4.4-11.0 96-Mfo-196314:15 Cytology, Body Fluid / CSF Comments: Specimen Source: [facility] [address] [place], [place], [address] CYTOLOGY,BF/CSF SEE PATHOLOGY REPORT Comments: Specimen submitted to Anatomical Pathology Department [facility]. (Normal) 85-Weq-174098:15 CYTOSPIN ON FLUID See Note (Normal) Comments: [address] [place], [place], [address] Comments: Patient: GEORGE VANN : 1940 (75/M) Acct Num: [id number] Phys: Glenny GARCIA,Yandel Warren Unit Num: [id number] Loc: [facility] Specimen: [id number] Received: 08/15/16 - 1126 Spec Type: CYSPIN FL TISSUES TISSUES: COMMENT Correlation with clinical findings and appropriate follow up are necessary. Please make reference to previous cytology ([id number]) urine for cytology with diagnosis of rare atypical urothelial noted and specimen ([id number]) bladder tumor, TUR with diagnosis of papillary urothelial carcinoma. CYTOLOGY GROSS Received is 35 ml of clear gol d fluid labeled with the patient's name and and designated per the requisition as urine. Submitted for cytology preparation. / 08/15/16 TC:5 CPT: 39929 CYTOLOGY STUDY Slides are reviewe d. DIAGNOSIS CYTOLOGY Urine for cytology (cytospin): A few clusters of atypical urothelial cells noted. See comment. SJ:lorenzo 08/18/16 HEADER OPERATION: Not noted PRE-OP DIAGNO SIS: Hematuria R31.9 TISSUE SUBMITTED: Urine for cytology Signed Wes Morrow 08/18/16 <signature on file> 28-Pse-92718:28 BNP,B-Type NATRIURETIC PEPTIDE Comments: Order Date: 08/14/16Order Info: [id number] - *Brain Natriuretic Peptide [facility]NPWAccess [facility] [address]qjhdo[address] [place], [address] B-TYPE EDGAR PEP 45.3 pg/mL (Normal) Range: 0-100 54-Had-01995:20 Lipid Profile Comments: Order Date: 08/08/16Order Info: [id number] - *Hepatic Function PanelOrder Date: 08/08/16Order Info: [id number] - *Lipid Profile CC PCPComments: 12 hours fasting, may have water.[facility] La [address] [place], [address] VLDL 39 mg/dL (Normal) Range: [...] 200-240 mg/dL Borderline >240 mg/dL High Risk 03-Viz-28801:20 Liver Profile Comments: Order Date: 08/08/16Order Info: [id number] - *Hepatic Function PanelOrder Date: 08/08/16Order Info: [id number] - *Lipid Profile CC PCPComments: 12 hours fasting, may have water.[facility] La nlunujxb[address] [place], [place], [address] D BILI 0.13 mg/dL (Normal) Range: 0.00-0.30 T BILI 0.70 mg/dL (Normal) Range: 0.20-1.00 ALT 18 U/L (Normal) Range: 12-78 ALK P 67 U/L (Normal) Range: 45-117 AST 12 U/L (Abnormal) Range: 15-37 GLOB 3.3 g/dL (Normal) Range: 2.3-3.5 ALB 3.7 g/dL (Normal) Range: 3.4-5.0 T PROT 7.0 g/dL (Normal) Range: 6.4-8.2 10-Ijw-653651:45 Basic Metabolic Profile (BMP) Comments: [facility] Kpjrxzwwbj[address] [place], [place], [id number] GAP 0 (Abnormal) Range: 5-15 CO2 30.0 [...] <126 mg/dLsuggests IMPAIRED HOMEOSTASIS per A.D.A. criteria. 51-Uqj-041288:45 CBC W/Diff, Automated Comments: [facility] Oykwlvpueo[address] [place], [place], [id number] Absolute Lymph 1.38 {X10_3/ul} (Normal) Range: 0.83-4.51 [...] 4.6-6.2 WBC 11.1 K/mm3 (Abnormal) Range: 4.4-11.0 88-Dbm-577301:45 Troponin-I Comments: 'TROP' Serial specimen #1, #2, #3, or #4: 1WAccess [facility] Ionzmbuqcq[address] [place], [place], [address] TROPONIN-I < 0.02 ng/mL Comments: TROPONIN-I EXPECTED VALUES <0.05 NEGATIVE 0.06 - 0.59 AT RISK OF MA > OR = 0.60 SUGGEST MA (Normal) BLADDER BX/FULGURATION See Note (Normal) Comments: [facility] Ofsralokby[address] [place], [address] :08 Comments: Patient: GEORGE VANN : 1940 (75/M) Acct Num: [id number] Phys: Glenny GARCIA,Urban Unit Num: [id number] Loc: [facility] Specimen: [id number] Received: 12/07/151513 Spec Ty pe: BLADDER BX [...] one cassette. / SJ:rg 12/10/15 TC:0 CPT: 76846 x2 HEADER OPERATION: Cystoscopy, left ureteroscopy PRE-OP [...] summary is in compliance with College of [place] Path[employer] (CAP) Cancer Protocols Checklist and [place] Joint Committee on Cancer (AJCC), Staging Manual, 7t h Ed. B. Bladder tumor trigone, TUR: Fragments of urothelial mucosa with mild epithelial atypia. Negative for malignancy in the submitted specimen. See comment. SJ:lorenzo 12/11/15 Signed Wes Morrow 12/11/15 <signature on file> :37 Lipid Profile Comments: Order Date: 10/16/15OV Order #: [id number] County Hospital Rwuakxtyyt[address] [place], [place], [address] VLDL 31 mg/dL (Normal) Range: 5-40 LDL [...] Profile Comments: Order Date: 10/16/15OV Order #: [id number] County Hospital Zslwdnhlnu4[address] [place], [address] D BILI 0.15 mg/dL (Normal) Range: 0.00-0.30 T BILI 0.60 mg/dL (Normal) Range: 0.20-1.00 ALT 17 U/L (Normal) Range: 12-78 ALK P 60 U/L (Normal) Range: 50-136 AST 13 U/L (Abnormal) Range: 15-37 GLOB 3.4 g/dL (Normal) Range: 2.3-3.5 ALB 3.6 g/dL (Normal) Range: 3.4-5.0 T PROT 7.0 g/dL (Normal) Range: 6.4-8.2 :18 SED RATE ERYTHROCYTE Comments: PATIENT WAS FASTINGPERFORMED BY: Marseille NetworksCarrie Tingley HospitalBrrlvv6023 [facility] [id number] BY: [address] [id number] (38627) Sedimentation Rate-Westergren 4 mm/h (Normal) Range: 0-30 :18 RHEUMATOID FACTOR-QUANT Comments: PATIENT WAS FASTINGPERFORMED BY: Marseille NetworksAmy [place] 0966970 [facility] [id number] BY: GroupCard[address] [id number] (94343) RA Latex Turbid. 4.8 {IU/mL} (Normal) Range: 0.0-13.9 :18 C-REACTIVE PROTEIN (24308) Comments: PATIENT WAS FASTINGPERFORMED BY: Marseille NetworksNewark Beth Israel Medical CenterOtbzcj5035 [facility] [id number] BY: [address] [id number] C-Reactive Protein, Quant 12.2 mg/L (Abnormal) Range: 0.0-4.9 :18 PSA (Medicare - G0103) Comments: PATIENT WAS FASTINGPERFORMED BY: Marseille NetworksNewark Beth Israel Medical CenterItmtqs5536 [facility] [id number] BY: [address] [id number] (56272) Prostate Specific Ag, 2.6 ng/mL (Normal) Range: 0.0-4.0 Serum Comments: Dariusz ECLIA methodology. .According to the [place] [employer] Association, Serum PSA shoulddecrease and remain [...] AND FOLATES Comments: PATIENT WAS FASTINGPERFORMED BY: PlanStanSaint [facility] [id number] BY: Marseille NetworksAnna Ville [id number] (54857) Folate (Folic Acid), Serum >20.0 ng/mL (Normal) Comments: A serum folate concentration of less than 3.1 ng/mL isconsidered to represent clinical deficiency. Vitamin B12 543 pg/mL (Normal) Range: 211-946 :18 VITAMIN D, 1, 25-DIHYDROXY Comments: PATIENT WAS FASTINGPERFORMED BY: SiliconBlue TechnologiesAlleghany Health [id number] BY: [employer] [id number] (05848) Calcitriol(1,25 di-OH Vit D) 35.3 pg/mL (Normal) Range: 19.9-79.3 :18 TSH (THYROID STIMULATING Comments: PATIENT WAS FASTINGPERFORMED BY: SiliconBlue TechnologiesAlleghany Health [id number] BY: [employer] [id number] HORMONE) (57046) TSH 1.680 {uIU/mL} (Normal) Range: 0.450-4.500 :18 LIPID PANEL (27978) Comments: PATIENT WAS FASTINGPERFORMED BY: MojoPagesDublin [place] [id number] BY: [employer] [id number] LDL/HDL Ratio 1.8 {ratio_units} (Normal) Range: 0.0-3.6 [...] METABOLIC PANEL, Comments: PATIENT WAS FASTINGPERFORMED BY: [employer] Yepphi9129 [facility] [id number] BY: [employer] [id number] [facility] (31208) ALT (SGPT) 10 [iU]/L (Normal) Range: 0-44 [...] Comments: PATIENT WAS FASTINGPERFORMED BY: CB [facility] Xvuvxy5522 [facility] [id number] BY: BN [facility] Wonrvepgsx1933 [facility] [id number] Information: [id number] (05434) Immature Grans (Abs) 0.0 {x10E3/uL} (Normal) Range: [...] (Normal) Range: 3.4-10.8 :10 HgA1C , Office (80086) HgA1C , Office 5.6 % (Normal) Range: 4.6 - 7.1 :55 Lipid Profile Comments: [facility] Uhbdgnqarf[address] [place], [place], [id number] VLDL 33 mg/dL (Normal) Range: 5-40 LDL [...] mg/dL High Risk :55 Liver Profile Comments: [facility] Rhzvcxggzg14[address] [place], [place], [address] D BILI 0.18 mg/dL (Normal) Range: 0.00-0.30 T BILI 0.50 mg/dL (Normal) Range: 0.20-1.00 ALT 15 U/L (Normal) Range: 12-78 ALK P 85 U/L (Normal) Range: 50-136 AST 13 U/L (Abnormal) Range: 15-37 GLOB 3.5 g/dL (Normal) Range: 2.3-3.5 ALB 3.5 g/dL (Normal) Range: 3.4-5.0 T PROT 7.0 g/dL (Normal) Range: 6.4-8.2 :55 HgA1C , Office (46504) HgA1C , Office 5.5 % (Normal) Range: 4.6 - 7.1 1-Err-022812:23 URINE MONTSE CULTURE-IDENTIFICATN Comments: PATIENT NOT FASTINGPERFORMED BY: GroupCardMarcus [place] 1469870 [facility] [id number] Information: [id number] ([id number]) Result 1 NG36 (Normal) Comments: No growth in 36 - 48 hours. Urine Culture,Comprehensive Final report (Normal) :31 Urinalysis, Office (34088) UA - LEUKOCYTE ESTERASE Trace (Normal) UA [...] MONTSE CULTURE-IDENTIFICATN Comments: PATIENT NOT FASTINGPERFORMED BY: [employer] Rwfxcf0360 [facility] [id number] Information: [id number] (78791) Result 1 MUG (Normal) Comments: Mixed urogenital flora1,000 Colonies/mL Urine Culture,Comprehensive Final report (Normal) :03 Urinalysis, Office (76424) UA - LEUKOCYTE ESTERASE Trace (Normal) UA - NITRITE Negative (Normal) URINE UROBILINGN DEEPALI TIMED Normal mg/dL (Normal) UA - PROTEIN Negative mg/dL (Normal) UA - PH 5 (Abnormal) UA - BLOOD Hemolyzed Trace (Normal) UA - SPECIFIC GRAVITY 1.030 (Abnormal) UA - KETONES Negative mg/dL (Normal) UA - BILIRUBIN Negative (Normal) UA - GLUCOSE Negative (Normal) :25 Urinalysis, Office (08542) UA - LEUKOCYTE ESTERASE Small (Normal) UA - NITRITE Negative (Normal) URINE UROBILINGN DEEPALI TIMED Normal mg/dL (Normal) UA - PROTEIN 100 mg/dL (Normal) UA - PH 6 (Abnormal) UA - BLOOD Hemolyzed Moderate (Normal) UA - SPECIFIC GRAVITY 1.030 (Abnormal) UA - KETONES Negative mg/dL (Normal) UA - BILIRUBIN Negative (Normal) UA - GLUCOSE Negative (Normal) :38 LIPID PANEL (73681) Comments: copy to Dr. peres; PATIENT WAS FASTINGPERFORMED BY: Chelaile6370 [facility] [id number] LDL/HDL Ratio 1.6 {ratio_units} (Normal) Range: 0.0-3.6 [...] 130 mg/dL (Normal) Range: 100-199 :38 CALCIFIDIOL (92249) VIT D 25 Comments: PATIENT WAS FASTINGPERFORMED BY: Chelaile6370 [facility] [id number] Vitamin D, 25-Hydroxy 35.1 ng/mL (Normal) Range: 30.0-100.0 Comments: Vitamin D deficiency has been defined by the [place] of[place]icine and an Endocrine Society practice guideline as alevel of serum 25-OH vitamin D less than 20 ng/mL (1,2).The Endocrine Society went on to further define vitamin Dinsufficiency as a level between 21 and 29 ng/mL (2).1. IOM ([place] of Medicine). 2010. Dietary reference intakes for calcium and D. [place]: The National Academies Press.2. Tammy MF, Cameron [place], Arnav DANIELLE, et al. Evaluation, treatment, and prevention of vitamin D deficiency: an Endocrine Society clinical practice guideline. JCEM. 2010; 96(7):1911-30. :38 TSH (46787) Comments: PATIENT WAS FASTINGPERFORMED BY: [employer]6370 [facility] [id number] TSH 2.630 {uIU/mL} (Normal) Range: 0.450-4.500 :38 METABOLIC PANEL, COMPREHENSIVE Comments: PATIENT WAS FASTINGPERFORMED BY: Marseille NetworksNewark Beth Israel Medical CenterCgdiju4896 [facility] [id number] (56251) ALT (SGPT) 11 [iU]/L (Normal) Range: 0-44 [...] auto diff Comments: PATIENT WAS FASTINGPERFORMED BY: Marseille NetworksNewark Beth Israel Medical CenterQsylnt8450 [facility] [id number] Information: [id number] (06825) Immature Grans (Abs) 0.0 {x10E3/uL} (Normal) Range: [...] 4.14-5.80 WBC 5.9 {x10E3/uL} (Normal) Range: 3.4-10.8 48-Lhi-73211:11 Lipid Profile Comments: Test performed at:[facility] Rrbxjvhefy[address] [place], [place] [address] VLDL 23 mg/dL (Normal) Range: 5-40 LDL [...] Risk :11 Liver Profile Comments: Test performed at:[facility] [address] [place] [address] D BILI 0.19 mg/dL (Normal) Range: 0.00-0.30 T BILI 0.90 mg/dL (Normal) Range: 0.20-1.00 ALT 16 U/L (Normal) Range: 12-78 ALK P 74 U/L (Normal) Range: 50-136 AST 14 U/L (Abnormal) Range: 15-37 GLOB 3.5 g/dL (Normal) Range: 2.3-3.5 ALB 3.6 g/dL (Normal) Range: 3.4-5.0 T PROT 7.1 g/dL (Normal) Range: 6.4-8.2 :19 Basic Metabolic Profile (BMP) Comments: Test performed at:[facility] [address]qlat[address] [place] [address] GAP 5 (Normal) Range: 5-15 [...] Blood Cnt No Diff Comments: Test performed at:[facility] Snsfbcfttv2395 [facility] [place] [address] MPV 10.2 fL (Normal) Range: [...] PSA,Total - Annual Screen Comments: Test performed at:[facility] Lnhferqhhm7[address] [place] [address] PSA,TOT SCREEN 2.34 ng/mL (Normal) Range: 0.00-4.00 Comments: This test was performed using the TPSA assay method for theGME [employer] chemistry system. Values obtained with differentassay methods cannot be used interchangably.When changing PSA assays in the course of monitoring apatient, additional sequential testing should be carriedout to confirm baseline values. 3-Cgy-733267:32 CBC With Differential/Platelet Comments: PATIENT WAS FASTINGPERFORMED BY: CB [facility] Bxnect0855 [facility] [id number] BY: BN [facility] [address] [id number] Immature Grans (Abs) 0.0 {x10E3/uL} Range: 0.0-0.1 [...] SPRCS (Normal) Comments: PATIENT WAS FASTINGPERFORMED BY: [employer] [facility] [place] [employer] [place] [facility] [id number] BY: GroupCard[address] [id number] 2:32 Comments: Non reactive HCV antibody screen is consistent with no HCV infection,unless recent infection is suspected or other evidence exists toindicate HCV infection. Fibrinogen Antigen 509 mg/dL (Abnormal) Comments: PATIENT WAS FASTINGPERFORMED BY: [facility] Ljswdj0350 [facility] [id number] BY: GroupCard[address] [id number] 2:32 Range: 180-350 H. pylori, IgG Abs <0.9 U/mL (Normal) Comments: PATIENT WAS FASTINGPERFORMED BY: [facility] V[address] [place] [address] [id number] BY: [address] [id number] 2:32 Range: 0.0-0.8 Comments: Negative <0.9 Indeterminate 0.9 - 1.0 Positive >1.0 HBsAg Screen Negative (Normal) Comments: PATIENT WAS FASTINGPERFORMED BY: GroupCard[address] [id number] BY: [address] [id number] 2:32 :32 HBV Core Ab, IgG/IgM Comments: PATIENT WAS FASTINGPERFORMED BY: [address] [id number] BY: [address] [id number] Diff Hep B Core Ab, Tot Negative (Normal) Hep B Core Ab, IgM Negative (Normal) :32 HCV Ab w/Rflx to Comments: PATIENT WAS FASTINGPERFORMED BY: [employer] [id number] BY: [address] [id number] Verification HCV Ab 0.1 {s/co_ratio} (Normal) Range: 0.0-0.9 :32 Hep B Surface Ab Comments: PATIENT WAS FASTINGPERFORMED BY: GroupCard[address] [id number] BY: [address] [id number] Hep B Surface Ab, Qual Non Reactive Comments: Non Reactive: Inconsistent with immunity, less than 10 mIU/mL Reactive: Consistent with immunity, greater than 9.9 mIU/mL (Normal) Methylmalonic Acid, 187 nmol/L Comments: PATIENT WAS FASTINGPERFORMED BY: [address] [id number] BY: [address] [id number] :32 Serum (Normal) Range: 0-378 Comments: Please note reference interval change :32 Prothrombin Time (PT) Comments: PATIENT WAS FASTINGPERFORMED BY: [place] 8542370 [facility] [id number] BY: [address] [id number] Prothrombin Time 10.2 {sec} (Normal) Range: 9.1-12.0 INR 1.0 (Normal) Range: 0.8-1.2 Comments: Reference interval is for non-anticoagulated patients. . Suggested INR therapeutic range for Vitamin K anta gonist therapy: Standard Dose (moderate intensity therapeutic range): 2.0 - 3.0 Higher intensity therapeutic range 2.5 - 3.5 :32 PTT, Activated Comments: PATIENT WAS FASTINGPERFORMED BY: [address] [id number] BY: [address] [id number] aPTT 29 {sec} (Normal) Range: 24-33 Comments: This test has not been validated for monitoring unfractionated heparintherapy. aPTT-based therapeutic ranges for unfractionated heparintherapy have not been established. For general guidelines onHeparin monitoring, refer to the [facility] Directory of Services. Sedimentation 8 mm/h (Normal) Comments: PATIENT WAS FASTINGPERFORMED BY: [place] 8542370 [facility] [id number] BY: [address] [id number] :32 Rate-Westergren Range: 0-30 Vitamin B12 457 pg/mL (Normal) Comments: PATIENT WAS FASTINGPERFORMED BY: [address] [id number] BY: [address] [id number] :32 Range: 211-946 :12 Basic Metabolic Profile (BMP) Comments: Test performed at:[facility] [address]vtwpklwlt[address] [place] [address] GAP 4 (Abnormal) Range: 5-15 [...] :12 CBC W/Diff, Automated Comments: Test performed at:[facility] Lweespknnw67[address] [place] [address] Absolute Lymph 1.66 {X10_3/ul} (Normal) Range: 0.83-4.51 [...] 4.4-11.0 :12 Lipid Profile Comments: Test performed at:[facility] [address] [place] [address] VLDL 25 mg/dL (Normal) Range: [...] Risk :12 Liver Profile Comments: Test performed at:[facility] Jxawplovew5147 [facility] [place] [address] D BILI 0.19 mg/dL (Normal) [...] How was Urine Obtained? CLEAN CATCHTest performed at:[facility] Hnahkczbgi9782 [facility] [place] [address] MUCUS, URINE 1+ {/hpf} (Normal) [...] performed using the TPSA assay method for [employer] chemistry system. Values obtained with differentassay methods [...] CHOL 148 mg/dL (Normal) Comments: <200 mg/dL Ngfcpskqe714-809 mg/dL Borderline>240 mg/dL High Risk :09 LIVER BID 0.16 mg/dL (Normal) Range: 0.00-0.30 BIT 0.70 mg/dL (Normal) Range: 0.00-1.00 ALT 21 U/L (Normal) Range: 12-78 ALK 66 U/L (Normal) Range: 45-117 AST 17 U/L (Normal) Range: 15-37 ALB 3.8 g/dL (Normal) Range: 3.4-5.0 TPROT 7.1 g/dL (Normal) Range: 6.4-8.2 :46 PSA (PROSTATE SPECIFIC Comments: screening; PATIENT WAS FASTINGPERFORMED BY: [facility] Pqdilu7892 [facility] [id number] ANTIGEN) (V76.44) Prostate Specific Ag, 1.9 ng/mL (Normal) Range: 0.0-4.0 Serum Comments: Steel Steed StudioIA methodology. .According to the [place] U[employer] Association, Serum PSA shoulddecrease and remain [...] of malignant disease. :46 URINALYSIS, W/ MICRO (25446) Comments: PATIENT WAS FASTINGPERFORMED BY: Chelaile6370 [facility] [id number] Microscopic Examination See below: (Normal) Nitrite, Urine Negative (Normal) Urobilinogen,Semi-Qn 0.2 mg/dL (Normal) Range: 0.0-1.9 Bilirubin Negative (Normal) Occult Blood Negative (Normal) Ketones Trace (Abnormal) Glucose Negative (Normal) Protein Trace (Normal) Appearance Clear (Normal) WBC Esterase Trace (Abnormal) Urine-Color Yellow (Normal) pH 5.5 (Normal) Range: 5.0-7.5 Specific Harris 1.026 (Normal) Range: 1.005-1.030 :46 MICROALBUMIN: CREATININE RATIO Comments: PATIENT WAS FASTINGPERFORMED BY: My Health DirectNewark Beth Israel Medical CenterRfesjj8933 [facility] [id number] (35746) AND (66268) Microalb/Creat Ratio 20.0 {mg/g_creat} (Normal) Range: 0.0-30.0 Creatinine, Urine 307.4 mg/dL (Normal) Range: 22.0-328.0 Microalbumin, Urine 61.5 ug/mL (Abnormal) Range: 0.0-17.0 :46 METABOLIC PANEL, COMPREHENSIVE Comments: PATIENT WAS FASTINGPERFORMED BY: [employer] Lozejj6682 [address] [facility] CenterMLW SquaredAlleghany Health [id number] (45295) ALT (SGPT) 13 [iU]/L (Normal) Range: 0-44 [...] mg/dL (Normal) Range: 65-99 :46 LIPID PANEL (60152) Comments: send results to Dr Peguero; PATIENT WAS FASTINGPERFORMED BY: [employer]6370 [address] [facility] CenterMLW SquaredAlleghany Health [id number] LDL Cholesterol Calc 71 mg/dL (Normal) Range: 0-99 LDL/HDL Ratio 1.7 {ratio_units} (Normal) Range: 0.0-3.6 VLDL Cholesterol Sree 23 mg/dL (Normal) Range: 5-40 HDL Cholesterol 43 mg/dL (Normal) Comments: According to ATP-III Guidelines, HDL-C >59 mg/dL is considered anegative risk factor for CHD. Triglycerides 113 mg/dL (Normal) Range: 0-149 Cholesterol, Total 137 mg/dL (Normal) Range: 100-199 08-Kod-10683:46 CBC WITH MANUAL DIFF Comments: PATIENT WAS FASTINGPERFORMED BY: [facility]6370 [facility] [id number] Information: [id number] (59675) Immature Grans (Abs) 0.0 {x10E3/uL} (Normal) Range: [...] 5.3 {x10E3/uL} (Normal) Range: 4.0-10.5 :46 TSH (98573) Comments: PATIENT WAS FASTINGPERFORMED BY: [facility]6370 [facility] [id number] TSH 1.790 {uIU/mL} (Normal) Range: 0.450-4.500 :46 Microscopic Examination Comments: PATIENT WAS FASTINGPERFORMED BY: [facility]6370 [facility] [id number] Bacteria Few (Normal) Mucus Threads Present (Normal) Crystal Type Calcium Oxalate (Normal) Crystals Present (Abnormal) Epithelial Cells (non renal) 0-10 {/hpf} (Normal) Range: 0 - 10 RBC 0-3 {/hpf} (Normal) Range: 0 - 3 WBC 0-5 {/hpf} (Normal) Range: 0 - 5 :26 MONTSE CULTURE-OTHER (19413) Comments: PATIENT NOT FASTINGPERFORMED BY: [place] 8542370 [facility] [id number] Information: SRC:THRT [id number] Result 1 RRF (Normal) Comments: Routine respiratory sana Upper Respiratory Culture Final report (Normal) 5-Vzp-155598:09 Rapid Strep Test, Office (94777) Rapid Strep Test, Office Negative (Normal) 71-Mwc-106574:04 Microscopic Examination Comments: PATIENT NOT FASTINGPERFORMED BY: [facility]6370 [facility] [id number] Bacteria Few (Normal) Mucus Threads Present (Normal) Crystal Type Calcium Oxalate (Normal) Crystals Present (Abnormal) Epithelial Cells (non renal) None seen {/hpf} (Normal) Range: 0 - 10 RBC 4-10 {/hpf} (Abnormal) Range: 0 - 3 WBC 0-5 {/hpf} (Normal) Range: 0 - 5 76-Icm-796428:04 PSA (PROSTATE SPECIFIC Comments: PATIENT NOT FASTINGPERFORMED BY: [facility]6370 [facility] [id number] ANTIGEN) (V76.44) Prostate Specific Ag, 1.6 ng/mL (Normal) Range: 0.0-4.0 Serum Comments: Dariusz StockpileIA methodology..According to the [place] U[employer] Association, Serum PSA shoulddecrease and remain at undetectable levels after radicalprostatectomy. The AUA defines biochemical recurrence a s an initialPSA value 0.2 ng/mL or greater followed by a subsequent confirmatoryPSA value 0.2 ng/mL or greater.Values obtained with different assay methods or kits cannot be usedinterchangeably. Results cannot be interpreted as absolute evidenceof the presence or absence of malignant disease. :04 URINALYSIS (40725) Comments: PATIENT NOT FASTINGPERFORMED BY: [facility] Jkrqub8997 [facility] CenterMLW SquaredAlleghany Health [id number] Information: [id number] Microscopic Examination See below: (Normal) Bilirubin Negative (Normal) Glucose Negative (Normal) Ketones Trace (Abnormal) Nitrite, Urine Negative (Normal) Occult Blood Trace (Abnormal) Urobilinogen,Semi-Qn 0.2 mg/dL (Normal) Range: 0.0-1.9 Protein Trace (Normal) WBC Esterase Negative (Normal) Appearance Clear (Normal) pH 6.0 (Normal) Range: 5.0-7.5 Urine-Color Yellow (Normal) Specific Harris 1.028 (Normal) Range: 1.005-1.030 :04 CBC (Auto) (29015) Comments: PATIENT NOT FASTINGPERFORMED BY: [facility] Lwrtuo7848 [address] [facility] [id number] Platelets 139 {x10E3/uL} (Abnormal) Range: 140-415 Hematocrit 41.1 % (Normal) Range: 36.0-50.0 MCH 30.0 pg (Normal) Range: 27.0-34.0 MCHC 33.8 g/dL (Normal) Range: 32.0-36.0 MCV 89 fL (Normal) Range: 80-98 RDW 13.6 % (Normal) Range: 11.7-15.0 Hemoglobin 13.9 g/dL (Normal) Range: 12.5-17.0 RBC 4.64 {x10E6/uL} (Normal) Range: 4.10-5.60 WBC 5.4 {x10E3/uL} (Normal) Range: 4.0-10.5 46-Xxz-259217:04 Metabolic Panel, Basic Comments: PATIENT NOT FASTINGPERFORMED BY: [facility] Wgqhuh9276 [facility] [id number] (06189) Calcium, Serum 9.9 mg/dL (Normal) Range: 8.6-10.2 [...] Glucose, Serum 97 mg/dL (Normal) Range: 65-99 89-Pwd-42740:10 BMP Comments: Please Note: TROPONIN REFERENCE RANGE [...] 3.5-5.1 NA 138 mmol/L (Normal) Range: 136-145 78-Quh-80771:10 CBCD EOS 1 % (Normal) Range: 0-5 [...] 5 <or= 4AMI > 5 > 4 10-Pop-59917:10 TROPONIN-I < 0.02 ng/mL (Normal) Comments: Please Note: TROPONIN REFERENCE RANGE CHANGEEffective JANUARY 23, 2009. Comments: TROPONIN-I EXPECTED VALUES <0.05 NEGATIVE0.06 - 0.59 AT RISK OF MA> OR = 0.60 SUGGEST MA 59-Tpi-86460:25 CKMB Comments: Please Note: TROPONIN REFERENCE RANGE CHANGEEffective JANUARY 23, 2009. CPK TOTAL 43 U/L (Normal) Range: 35-232 CPKMB < 0.5 ng/mL (Normal) Range: 0.0-5.0 Comments: CK-MB and RI Interpretation MB Relative IndexNon-AMI <or= 5 NAIndeterminate > 5 <or= 4AMI > 5 > 4 53-Emo-70461:25 TROPONIN-I < 0.02 ng/mL (Normal) Comments: Please Note: TROPONIN REFERENCE RANGE CHANGEEffective JANUARY 23, 2009. Comments: TROPONIN-I EXPECTED VALUES <0.05 NEGATIVE0.06 - 0.59 AT RISK OF MA> OR = 0.60 SUGGEST MA 53-Zam-205041:10 TROPONIN-I 0.03 ng/mL (Normal) Comments: Please Note: TROPONIN REFERENCE RANGE CHANGEEffective JANUARY 23, 2009. Comments: TROPONIN-I EXPECTED VALUES <0.05 NEGATIVE0.06 - 0.59 AT RISK OF MA> OR = 0.60 SUGGEST MA 31-Uvu-729395:55 CKMB Comments: COMMENTS: ADD TO TROP DRAWN [...] CHOL 108 mg/dL (Normal) Comments: <200 mg/dL Cdtssvvhi528-088 mg/dL Borderline>240 mg/dL High Risk :22 LIVER [...] Report See Note (Normal) Comments: Exam Number: [id number] PET CT. CLINICAL STATEMENTPulmonary nodule. Correlation is [...] Report See Note (Normal) Comments: Exam Number: [id number] CT SCAN OF CHEST. HISTORYNeoplasm of uncertain [...] be, measuring 14 ml. The lesion measured ngqfxlrqikdvd94 ml in maximum dimension on the biopsy [...] Reported By: DEXTER ANDRADE M.D. :05 TSH ([id number]) Comments: PATIENT WAS FASTINGPERFORMED BY: Dianxin Ianazq1320 [facility] [id number] TSH 2.084 {uIU/mL} (Normal) Range: 0.350-5.500 Comments: Adult TSH concentrations below 5.5 uIU/mL does not rule out the presence of subclinical hypothyroidism. :05 METABOLIC PANEL, COMPREHENSIVE Comments: PATIENT WAS FASTINGPERFORMED BY: Dianxin Wcavps1806 [facility] [id number] ([id number]) A/G Ratio 1.7 (Normal) Range: 1.1-2.5 Albumin, [...] Est >60 mL/min (Normal) Range: 60-137 If -Albanian >60 mL/min (Normal) Range: 60-137 Comments: Note: [...] Glucose, Serum 95 mg/dL (Normal) Range: 65-99 87-Ihd-12802:05 CBC WITH MANUAL DIFF (90507) Comments: PATIENT WAS FASTINGClinical Information: ADD DRAW FEE [id number] ADD J 32745 PERFORMED BY: [facility] [id number] Baso (Absolute) 0.1 {x10E3/uL} (Normal) Range: 0.0-0.2 [...] (PROSTATE SPECIFIC Comments: PATIENT WAS FASTINGPERFORMED BY: [facility]6370 [facility] [id number] ANTIGEN) (V76.44) Prostate Specific Ag, Serum 2.1 ng/mL (Normal) Range: 0.0-4.0 Comments: [facility] (formerly [facility]) [facility] methodology :16 CHEST, PA AND LATERAL Radiology Report See Note (Normal) Comments: Exam Number: [id number] PA AND LATERAL CHEST HISTORY Being done [...] Report See Note (Normal) Comments: Exam Number: [id number] PERCUTANEOUS LUNG BIOPSY HISTORY The patient has [...] see above. Reported By: VALERIY LAU M.D. 69-Lnd-49054:00 TISS/FLUID P-BX/CY (Normal) Comments: OPERATION CT guided [...] 3.5-5.1 NA 137 mmol/L (Normal) Range: 136-145 35-Igr-35636:45 CBC Comments: COMMENTS: THIS AMPrecautions*: NOT APPLICABLE HCT 30.3 % (Abnormal) Range: 40-54 HGB 10.5 g/dL (Abnormal) Range: 14.0-18.0 MCH 31.4 pg (Normal) Range: 27.0-32.0 MCHC 34.7 g/dL (Normal) Range: 32-36 MCV 90.6 fL (Normal) Range: 80-94 PLT 198 K/mm3 (Normal) Range: 150-450 RBC 3.34 {M/mm3} (Abnormal) Range: 4.6-6.2 RDW 13.2 % (Normal) Range: 11.6-14.6 WBC 10.8 K/mm3 (Normal) Range: 4.4-11.0 19-Qpq-048606:22 TURP P-PROS (Normal) Comments: OPERATION Cystoscopy, TUR [...] SJ:van 7 TC:2 REPORT SIGNED: ELIDIA VEGA 06/04/0629-May-20063-Ajj-390417:08 CALCULI P-CALC (Normal) Comments: OPERATION Cytoscopy, litholapaxy, [...] analysis. /SJ:cm 06/01/06 REPORT SIGNED: EDITH MORROWI 06/02/0629-May-20061-Jll-181930:34 CALCULI 123738 CA OXAL DIHYDR 30 % (Normal) CA OXAL MONOHYD 60 % (Normal) CA PHOSPHATE 10 % (Normal) COLOR Brown (Abnormal) COMMENT Comment (Normal) Comments: Physician questions regarding Calculi Analysis contact[facility] at: [phone].Performed At: [address] [id number] Comment Comment (Normal) Comments: Percentage (Represents the [...] SED RATE 75 mm/h (Abnormal) Range: 0-20 51-Qyi-052744:05 CPK TOTAL 47 U/L (Normal) Comments: Precautions*: [...] 1.49 INDETERMINANT > OR = 1.50 SUGGEST MA :20 BMP Comments: COMMENTS: IN AMPrecautions*: NOT [...] 1.49 INDETERMINANT > OR = 1.50 SUGGEST MA : BC No growth in 5 days. [...] 1.49 INDETERMINANT > OR = 1.50 SUGGEST MA : TSH 1.05 {uIU/mL} (Normal) Comments: Precautions*: NOT APPLICABLE 50 Range: 0.34-4.82 : VIT B12 1503 396 pg/mL (Normal) Comments: Precautions*: NOT APPLICABLE 50 Range: 211-911 Comments: Performed At: [address] [id number] :50 BMP Comments: COMMENTS: STATPrecautions*: NOT APPLICABLE [...] $$ <=0.5 S TRIMETHOPRIM/SULFAMETHOXAZ $$ >=320 R 24-Plb-580743:15 CULTURE, URINE Comments: COMMENTS: BONEZZIPrecautions*: NOT APPLICABLE [...] COMMENTS: BONEZZIPrecautions*: NOT APPLICABLE :02 (Normal) :02 [facility] Comments: COMMENTS: BONEZZIPrecautions*: NOT APPLICABLE BUN 35 [...] 1.49 INDETERMINANT > OR = 1.50 SUGGEST MA Plan of Care Name Dates Details Instructions [...] bacterial pneumonia Unspecified bacterial pneumonia : Reviewed 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 Indication: Unspecified bacterial pneumonia Hemoptysis : [...] artery disease Coronary artery disease : Reviewed 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 Indication: Coronary artery disease Coronary artery [...] : FOLLOW UP IN 1 WEEK [facility] Indication: Thrombophlebitis folliculitis : Antibiotic Usage Education - Male Indication: folliculitis Other specified viral infection, in conditions classified elsewhere and of unspecified site : IV Indication: Other specified viral infection, in conditions classified elsewhere and of unspecified site BPH : FOLLOW UP IN 1 YEAR Indication: BPH Actinic keratosis : Cryotherapy Indication: Actinic keratosis Planned Observations VITAMIN D, 1, 25-DIHYDROXY (12941)Indication: Vitamin D deficiency On: 0-Wdn-864687:16 Request PSA (PROSTATE SPECIFIC ANTIGEN) (V76.44)Indication: Enlarged prostate with lower urinary tract symptoms On: 7-Zdi-638646:16 Request LIPID PANEL (97518)Indication: Hypercholesteremia On: :15 Request METABOLIC PANEL, COMPREHENSIVE (71812)Indication: Hypertension On: :15 Request CBC, PLATELETS & AUT DIFF (29247)Indication: Hypertension On: 8-Osl-449937:15 Request C-REACT PROT HIGH SENS(hsCRP) (94162)Indication: CRP elevated On: 28-Yej-758047:01 Request Folate (73604)Indication: Fatigue On: 95-Clc-802764:55 Request Urinalysis, Office (34008)Indication: Hypertension On: 04-Xkc-704122:36 Request URINALYSIS, W/ MICRO (02569)Indication: Hypertension On: :58 Request CBC (Auto) (08537)Indication: Hypertension On: :58 Request Metabolic Panel, Basic (26810)Indication: Hypertension On: :58 Request PSA (PROSTATE SPECIFIC ANTIGEN) (V76.44)Indication: Screening for prostate cancer On: :21 Request Comments: do 07-08 URINALYSIS, W/ MICRO (32566)Indication: Hypertension On: :17 Request TSH (68970)Indication: Anxiety On: :18 Request URINALYSIS, W/ MICRO (22806)Indication: Hypertension On: :18 Request METABOLIC PANEL, COMPREHENSIVE (16094)Indication: Hypertension On: :18 Request LIPID PANEL (60839)Indication: Hypertension On: : Request CBC with auto diff (39884)Indication: Hypertension On: : Request PSA (PROSTATE SPECIFIC ANTIGEN) (V76.44)Indication: Encounter for routine history and physical exam for male On: : Request CBC (Auto) (45883)Indication: Hypertension On: : Request Comments: citrate tubes Metabolic Panel, Basic (63408)Indication: Hypertension On: : Request Methymalonic Acid, Serum (41482)Indication: Thrombocytopenia On: :49 Request Vitamin B-12 (cyanocobalamin) (19244)Indication: Thrombocytopenia On: :49 Request Sed Rate Erythrocyte (88211)Indication: Thrombocytopenia On: :49 Request FIBRINOGEN (23023)Indication: Thrombocytopenia On: 6-Poh-531934:49 Request HELICOBACTER PYLORI ANTIBODY (40084)Indication: Thrombocytopenia On: :49 Request PTT (Activated Partial Thromboplastin Time) (05198)Indication: Thrombocytopenia On: :48 Request PT (Prothrobim Time) (05184)Indication: Thrombocytopenia On: 3-Pfj-062139:48 Request HEPATITIS C ANTIBODY (91940)Indication: Thrombocytopenia On: 8-Ifx-349575:48 Request HEPATITIS B CORE ANTBD-IGG/IGM (00056)Indication: Thrombocytopenia On: 2-Rky-953625:48 Request HEPATITIS B SURFACE ANTIGEN (79291)Indication: Thrombocytopenia On: 1-Dps-946323:48 Request HEPATITIS B SURFACE ANTIBODY (33412)Indication: Thrombocytopenia On: 6-Yti-290524:48 Request CBC W/AUTO DIFF WBC ([id number])Indication: Thrombocytopenia On: 6-Xbw-225863:41 Request Comments: citrate tube CBC WITH MANUAL DIFF ([id number])Indication: Thrombocytopenia On: 30-Bgm-96049:42 Request Comments: DRAW IN CITRATE TUBE PLEASErecheck before next follow up in Feb 2014 Metabolic Panel, Basic (22724)Indication: Hypertension On: 3-Jpw-567491:33 Request Comments: copy to [facility] HEPATIC FUNCTION PANEL (71799)Indication: Hypertension On: :33 Request LIPID PANEL (80911)Indication: Hypercholesteremia On: 6-Qlq-656048:32 Request URINALYSIS, W/ MICRO (62488)Indication: Hypertension On: 6-Luc-828078:32 Request CBC (Auto) ([id number])Indication: Hypertension On: 3-Ppj-320563:32 Request PSA (PROSTATE SPECIFIC ANTIGEN) (V76.44)Indication: Encounter for routine history and physical exam for male On: 4-Put-939906:02 Request CBC (Auto) (26054)Indication: Hypertension On: 08-Jul-2011 Request Metabolic Panel, Basic (03176)Indication: Hypertension On: 08-Jul-2011 Request URINALYSIS, W/ MICRO ([id number])Indication: Hypertension On: 08-Jul-2011 Request URINALYSIS W/O MICRO (00832)Indication: Essential hypertension, malignant On: 4-Alk-664214:00 Request TSH (15500)Indication: Essential hypertension, malignant On: 6-Nma-537923:00 Request METABOLIC PANEL, COMPREHENSIVE (42316)Indication: Essential hypertension, malignant On: 4-Fta-349084:00 Request CBC WITH MANUAL DIFF (10709)Indication: Essential hypertension, malignant On: 5-Zwv-854938:00 Request PSA (PROSTATE SPECIFIC ANTIGEN) (V76.44)Indication: BPH On: 2-Nlq-199440:59 Request CBC (Auto) ([id number])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, unspecified On: :51 Request PTT (Activated Partial Thromboplastin Time) (54402)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, unspecified On: :50 Request Comments: drawn in office today PT (Prothrobim Time) (40697)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, unspecified On: :50 Request Comments: drawn in office URINALYSIS (60178)Indication: Hypertension On: :38 Request METABOLIC PANEL, BASIC (38417)Indication: Hypertension On: 39-Alx-05815:37 Request Planned Procedures Aerosol Treatment (17877)By: Evonne On: 28-Dec-2017 Rosana Mark DO, DO, Kathleen Comments: no wheeze adn better a/e after treatment COMPUTED TOMOGRAPHY ANGIOGRAPHY OF On: 15-Dec-2017 Intent CHEST FOR PULMONARY EMBOLISM Comments: STAT ORDER PLEASE PHONE RESULTS TO GABY RO AT [phone] (02447)By: Gaby Ro CNP CTA OF CHEST WITHOUT THEN WITH On: 15-Dec-2017 Intent CONTAST AND POST-PROCESSING (09976)By: Gaby Ro CNP COMPUTED TOMOGRAPHY OF CHEST FOR On: 15-Dec-2017 Intent PULMONARY EMBOLISM (58059)By: Marjorie Comments: stat stat stat Gaby DOMINGUEZ Solu -Medrol Injection, 125 mg On: 14-Dec-2017 Intent (J2930)By: Gaby Ro CNP Spirometry (64952)By: Marjorie DOMINGUEZ, On: 14-Dec-2017 Intent Gaby Torrez Comments: Moderate Airway obstruction CHEST XRAY, PA & LATERAL (12483)By: On: 14-Dec-2017 Intent Gaby Ro CNP Aerosol Treatment (11519)By: Marjorie On: 14-Dec-2017 Gaby Mark CNP Radiology - Chest- PA and LatBy: On: 31-Dec-2016 Intent Rosana Davis DO, DO, Comments: fu on pneumonia -- do towards end january Rosana Radiology - Chest- PA and LatBy: On: 04-Jul-2016 Intent Rosana Davis DO, DO, Kathleen Flu Vaccine (Quadrivalent) 48664Li: On: 12-Nov-2015 Intent Visit, Nurse Comments: Lot #[id number]/30/17ite-L dltd, IMDose prefilled syringegiven by:MORENA VillaltaNVIS and ABN signed US DOPPLER CAROTID BILATERAL On: 22-Aug-2015 Intent (69113)By: Wes Hernandez MD Comments: bilateral PFT - CompleteBy: Wes Hernandez MD On: 24-Jul-2015 Intent CAROTID DUPLEX EXAMINATION On: 24-Jul-2015 Intent (28028)By: Wes Hernandez MD Radiology - Chest- PA and LatBy: On: 19-Mar-2015 Intent Fast DO, Torie A Comments: stat PNEUM VAC ADLT/IMUMNOSPR, SBC/INTRM On: 23-Jan-2015 Intent (82024)By: Parul Rice MD ADMINISTRATION OF PNEUMOCOCCAL On: 23-Jan-2015 Intent VACCINE (G0009)By: Parul Rice MD PNEUM VAC ADLT/IMUMNOSPR, SBC/INTRM On: 23-Jan-2015 Intent (42982)By: Parul Rice MD Flu Vaccine (Quadrivalent) 83499Wg: On: 23-Jan-2015 Intent Parul Rice MD Comments: lot [id number]: 08/23/2015site/route L tarsha, IMamt 0.5mlVIS and ABN signed when applicableChrissie, RUSSELL ELECTROCARDIOGRAM, COMPLETE (ECG) On: 25-Jul-2014 Intent (06508)By: Parul Rice MD Prevnar 13 (28777)By: Dwayne GARCIA, On: 31-Jan-2014 Intent Parul Edwards Comments: [id number] arm, IMMegan Solu -Medrol Injection, 125 mg On: 31-Aug-2013 Intent (J2930)By: Marjorie DOMINGUEZ Gaby Torrez Comments: [id number], 2mlMegan Eprescribed prescriptions On: 25-Jul-2013 Intent (G8553)By: Parul Rice MD FLU VAC, SPLIT, >3 YEARS, INTRAMUSC On: 04-Nov-2012 Intent (50758)By: Parul Rice MD Comments: lot [id number] 2014site/route L tarsha, IMamt 0.5mlVIS and ABN signed when applicableChelsea, DIRECTOR LIFE ADMINISTRATION OF INFLUENZA VIRUS On: 04-Nov-2012 Intent VACCINE (G0008)By: Yesy Hagan Pulse Oximetry (62425)By: Caleb On: 22-Oct-2012 Intent JOHANA Esophagram with a cookie swallow On: 10-Aug-2012 Intent using the tablet.By: Dwayne GACRIA, Comments: see Dr. araseli Edwards EKG (42046)By: Rosana Davis DO On: 17-Mar-2012 Intent Rosana Davis DO Comments: nsr no acute cgh Eprescribed prescriptions On: 17-Mar-2012 Intent (G8553)By: Rosana Davis DO, DO, Kathleen FLU VAC, SPLIT, >3 YEARS, INTRAMUSC On: 14-Nov-2011 Intent (20702)By: Polly Sutton Comments: Lot:[id number]:6.30.13Dose:prefilledRoute:IMSite:L DltdGiven By:CHARLA signed ADMINISTRATION OF INFLUENZA VIRUS On: 14-Nov-2011 Intent VACCINE (G0008)By: Polly Sutton FLU VAC, SPLIT, >3 YEARS, INTRAMUSC On: 18-Nov-2010 Intent (08041)By: Wendy Johnson LPN Comments: Lot #[id number]-L arm IMDose prefilledgiven by:Wendy ADMINISTRATION OF INFLUENZA VIRUS On: 18-Nov-2010 Intent VACCINE (G0008)By: Wendy Johnson LPN ADMINISTRATION OF INFLUENZA VIRUS On: 27-Nov-2009 Intent VACCINE (G0008)By: Wendy Johnson LPN Comments: Lot #[id number]-4/11Site-L armDose0.5mlgiven by:ANDRAE Drew FLU VAC, SPLIT, >3 YEARS, INTRAMUSC On: 27-Nov-2009 Intent (13610)By: Wendy Johnson LPN Doppler Ultrasound OtherBy: Ciesa On: 24-Jul-2009 Intent Gaby DOMINGUEZ Comments: call with lizett acharya, Left leg today FLU VAC, SPLIT, >3 YEARS, INTRAMUSC On: 23-Nov-2008 Intent (07250)By: Juany Harrison RN ADMINISTRATION OF INFLUENZA VIRUS On: 23-Nov-2008 Intent VACCINE (G0008)By: Juany Harrison RN ADMINISTRATION OF PNEUMOCOCCAL On: 25-Jul-2008 Intent VACCINE (G0009)By: Torie Fletcher DO PNEUM VAC ADLT/IMUMNOSPR, SBC/INTRM On: 25-Jul-2008 Intent (15523)By: Torie Fletcher DO Comments: Lot #: [id number] date: mount given: 0.5 mlRoute: IMSite given: Left deltoidGiven by: Prateek Chung LPN PET ScanBy: Fast DO, Torie A On: 09-Jul-[address] - ChestBy: Fast DO Torie A On: 23-Jun-2007 Intent Ultrasound - RenalBy: Fast DO, On: 23-Jun-2007 Intent Torie Chandra Bio Z (71412)By: Chayo Lorenz On: 23-Jun-2007 Intent Spirometry (69936)By: Dwayne GARCIA, On: 04-Aug-2006 Intent Praul Edwards Pulse Oximetry (06771)By: Dwayne On: 04-Aug-[address] - Chest (IV Contrast Needed)By: On: 04-Aug-2006 Intent Parul Rice MD Comments: PLAN NEEDLE GUIDED BIOPSY OF NODULE/MASS BY DR KURT Castellonan Injection, up to 50 mg On: 15-May-2006 Intent (J2550)By: Parul Rice MD DESTROY BENIGN/PREMALIG LESION, 1ST On: 13-Nov-2005 Intent (13239)By: Parul Rice MD Planned Medications INJECTION, METHYLPREDNISOLONE [...] of lung cancer sees Dr. Lam at [facility] , sees once a year. Saw [...] is transitioning into care from a hospital ([facility] for pneumonia and a sbo) and a [...] The patient does have durable power of environmental attorney and living will. The patient has noticed lack of energy. Other providers contributing to the patient's care are member of technical staff (Aylin).Encounter Diagnosis: BMI 30.0-30.9,adult, Nonsmoker, Vision abnormalities, [...] The patient does have durable power of environmental attorney and living will. The patient has noticed nothing from the geriatic depression scale. O ther providers contributing to the patient's care are member of technical staff. Encounter Diagnosis: Hypertension 401.1 (Renamed from Hypertension [...] (211.3), Lung nodule (518.89), hernia repair right, hmqbzyuwzs23, Actinic keratosis (702.0), hemmorhiodectomy, BPH, Hypertension 401.1 [...] is keeping close followup with doctors at [facility]- on this-- hedidnt have to danielle ve [...] colonsocopy so will send back to [facility] to do, [ADDITIONAL REASON] Cough - The [...] with heart doctor in [facility] Diagnosis: GERD (530.81), Depression (311.), Unspecified [...] STATUS (V45.81), hernia repair right, tonsillectomy, hemmorhiodectomy, exkfmqtgrq75, Actinic keratosis (702.0) [facility] Office Visit On: 12-Nov-2005 12:16 [facility] End: 12-Nov-2005 12:34 Payers MedicareAmerican [place] Tess/Silvestre Vann; a guarantor
--- OUTSIDE RECORDS SUMMARY | 2018-05-13 10:07 | XMS RPT_ITS ---
:1940 Author Organization OHIP Care Team Providers Name Role Phone KRISTEN PARKS Admitting Unavailable KRISTEN PARKS Attending Unavailable KRISTEN PARKS Referring Unavailable MAZZONEFRANCESCA Referring Unavailable MAZZONEFRANCESCA Referring Unavailable FRANCESCA DOTY Attending Unavailable Yandel Murrieta Attending Unavailable Evonne, Rosana Primary Care Unavailable Yandel Murrieta Referring Unavailable Job Vieraril Attending Unavailable AylinJobBarryton Referring Unavailable Evonne, Rosana Primary Care Unavailable Aylin, Butch Attending Unavailable Evonne, Rosana Referring Unavailable Evonne, Rosana Primary Care Unavailable Gaby Amador Attending Unavailable PaoesGaby scott Referring Unavailable Evonne, Rosana Primary Care Unavailable Gaby Amador Attending Unavailable PaoesaGaby Referring Unavailable Evonne, Rosana Primary Care Unavailable PROBLEMS PROBLEMS DATE TYPE CONDITION / CODE ATTENDING STATUS SOURCE 02/09/2018 Unknown R31.9 - Hematuria, Yandel Murrieta Active [place] unspecified / [facility] R31.9(ICD-10) Hospital Repository 11/02/2017 Active Centrilobular NA Active [facility] emphysema / [facility] [place] J43.2(ICD-10) Repository 11/02/2017 Active Personal history of NA Active [facility] other malignant [facility] [place] neoplasm of Repository bronchus and lung / Z85.118(ICD-10) 11/02/2017 Active Other nonspecific NA Active [facility] abnormal finding of [facility] [place] lung field / Repository R91.8(ICD-10) 09/08/2017 Unknown E78.5 - Aylin, Barryton Active [place] Hyperlipidemia, Community unspecified / Hospital E78.5(ICD-10) Repository 09/08/2017 Unknown Z79.899 - Other Aylin, Barryton Active [facility] [employer] (current) Community drug therapy / Hospital Z79.899(ICD-10) Repository 03/19/2017 Active Constipation, RICHELLE PARKSA Active [facility] unspecified / EMMA [facility] K59.00(ICD-10) Repository PROCEDURES PROCEDURES No Procedure Records FoundRESULTS RESULTS CYTOSPIN ON FLUID Observed: 02/08/2018 Status: F Source: [place] 9:30 AM [facility] REPOSITORY Patient: RICKY BURNS : 1940 (77/M) Acct Num: [id number] Phys: Glenny GARCIA,Urban Unit Num: [id number] Loc: LABSPEC Specimen: [id number] Received: 02/08/181658 Spec Type: CYSPIN FL TISSUES 1 TISSUES: Urine COMMENT Clinical correlation and appropriate follow up are necessary. Please make reference to previous specimen ([id number]) bladder tumor, TUR with diagnosis of papillary urothelial carcinoma, ([id number]) urine for cytology with diagnosis of rare atypical urothelial cells noted, (V96-320) urine for cytology with diagnosis of a few clusters of atypical urothelial cells noted. CYTOLOGY GROSS Received is 18 ml of cloudy yellow fluid labeled with the patient's name and and designated per the requisition as urine. Submitted for cytology preparation. / 02/09/18 TC:5 CPT: 10467 CYTOLOGY STUDY Slides are reviewed. DIAGNOSIS CYTOLOGY Urine for cytology (cytospin): Clusters of mildly atypical urothelial cells noted. SJ:lorenzo 02/10/18 HEADER OPERATION: Not noted PRE-OP DIAGNOSIS: Hematuria TISSUE SUBMITTED: Urine for cytology Signed Nando Morrow MD 02/10/18 <signature on file> Performed By: #### PCYSPIN #### [facility] [address] [place], [address] CYTOLOGY, BODY FLUID / Collected: 02/08/2018 Status: F Source: [place] CSF 9:30 AM [facility] REPOSITORY Order Comment: Specimen Source: URINE TYPE CODE TESTS RESULT OUT OF RANGE REFERENCE UNITS LAB L350.1000 SEE Normal PATHOLOGY CYTOLOGY,BF REPORT /CSF Result Comment: Specimen submitted to Anatomical Pathology Department for testing. Performed By: #### L350.1000 #### [facility] [address] [place], [address] CTA CHEST W/WO Observed: 12/15/2017 Status: F Source: [place] CONTRAST 2:50 PM [facility] REPOSITORY [facility] Services [address] [facility] [place] [address] CTA Chest W/WO Contrast MR#: [id number] Acct: [id number] Name: RICKY BURNS Rep #: [id number] : 1940 M 77 From: Prasanna Lr MD PCP: Rosana Douglass DO Status: REG CLI Study: CTA Chest W/WO Contrast Date of Exam: 12/15/17 Exam# [id number] Ordering Dr: Gaby Amador MECHANICAL ENGINEERING DRAFTSPERSON-C STUDY: CTA CHEST REASON FOR EXAM: Male, 77 years old. Elevated d-dimer. Short of breath. Previous heart surgery. History of lung cancer status post lobectomy. RADIATION DOSAGE (If Supplied By Facility): CTDIvol = ( 20.19 ) mGy, DLP = ( 727.77 ) mGycm TECHNIQUE: The examination was performed with the intravenous administration of 100 ml of Isovue 370 contrast material. Post-processing of the angiographic images was performed, with multiplanar reformation and 3D reconstruction. Individualized dose optimization techniques were used for this CT. COMPARISON: None. FINDINGS: Normal enhancement of the main pulmonary artery and right and left pulmonary arteries. Normal enhancement of the bilateral peripheral pulmonary arteries. There is no demonstrated pulmonary embolism. There is prominence of the main pulmonary arteries without peripheral pulmonary vascular congestion, suggesting pulmonary hypertension. There is atherosclerotic calcification of the aortic arch with tortuosity. There is no demonstrated aortic dissection. There is mild cardiomegaly. There are calcifications of the coronary arteries. Normal mediastinum. Normal hilar regions. Normal visualized trachea and bronchi. There is evidence of COPD and centrilobular emphysema. There is a partially calcified 1.2 cm nodule in the lateral right middle lobe. Scarring seen in both posterior lower lobes. Normal pleura. There are no pleural effusions. Normal chest wall structures. Moderate hiatal hernia. There are degenerative changes of thoracic spine. Views of the upper abdomen show numerous small bilateral renal stones. CT/CTA Chest W/WO Contrast IMPRESSION: No evidence for PE. COPD. Cardiomegaly. Electronically Signed: Prasanna Lr MD at 16:37 EDT , Service support , CC: Gaby Amador NP; Rosana Douglass DO Crossbow Maker: Signed CHEST PA AND LATERAL Observed: 12/14/2017 Status: F Source: [place] 3:06 PM [facility] REPOSITORY [facility] Imaging Services [address] [place] [id number] Chest PA and Lateral MR#: [id number] Acct: [id number] Name: RICKY BURNS Rep #: [id number] : 1940 M 77 From: Jevon Back MD PCP: Rosana Douglass DO Status: REG CLI Study: Chest PA and Lateral Date of Exam: 12/14/17 Exam# [id number] Ordering Dr: Gaby Amador MECHANICAL ENGINEERING DRAFTSPERSON-C STUDY: X-RAY CHEST REASON FOR EXAM: Male, 77 years old. Cough x4 weeks TECHNIQUE: PA and lateral views of the chest. COMPARISON: Prior study of 12/14/2016 5:22 AM FINDINGS: There is hyperinflation of the lungs with hemidiaphragmatic flattening and increased retrosternal airspace consistent with COPD. There are 2 calcified granulomas of the right middle lobe measuring 1.2 and 1.3 cm respectively, stable from prior study of 07/04/2016. There is no pleural effusion. The heart size is within normal limits. Status post sternotomy changes are present. Normal mediastinum and babak. Normal visualized pulmonary arteries. There are calcified plaques of the aortic arch. There are diffuse degenerative changes of the visualized thoracic spine. Normal visualized ribs, clavicles, and shoulders. There is no demonstrated abnormality of the visualized soft tissue structures of the upper abdomen. RAD/Chest PA and Lateral IMPRESSION: Findings consistent with COPD. Stable calcified granulomas of the right middle lobe. Calcified plaques of the aortic arch. Status post sternotomy. No acute cardiopulmonary disease process is seen. Electronically Signed: Jevon Back MD at 16:09 EDT , Service support , CC: Gaby Amador NP; Rosana Douglass DO Crossbow Maker: Signed PROGRESS Observed: 11/05/2017 Status: COMPLETED Source: [place] 5:52 PM [facility] REPOSITORY HNO ID: [id number] Author: Dana Gordon (Pa) Service: (none) Author Type: Physician Time Lock Expert Type: Progress Notes Filed: 11/05/2017 5:56 PM Note Text: Spoke with insurance company regarding prior authorization. Authorization is approved and prescription was switched to preferred medication on formulary. Dana Gordon PA-C NPI #: [id number] November 05, 2017 5:52 PM PROGRESS Observed: 11/02/2017 Status: COMPLETED Source: [place] 3:12 PM [facility] REPOSITORY HNO ID: [id number] Author: Francesca Doty Service: (none) Author Type: Physician Type: Progress Notes Filed: 11/02/2017 3:19 PM Note Text: 77 year old former smoker seen in f/u for stage IB adenoca s/p LLLectomy in 08/30 (granulomas with Histo forms in the resected specimen and removed lymph nodes) and dyspnea. Hx of CAD s/p CABG, lipids, severe GERD, HTN, and a colon polyp, renal calculi and superficial bladder cancer. Mr. Burns has been generally well. He has noted stable activity tolerance with dyspnea if he is pushing himself. He does not have chest discomfort with his activities but may notice it during rare panic attacks. He has a mild cough without sputum production and a feeling of some chest congestion. He does not have fevers, sweats, or appetite problems. He has not had any respiratory infections requiring treatment between visits. He describes an antibiotic course for a bowel infection that led to hospitalization. He has used his Albuterol infrequently. He has noticed benefit when used. He has not been told of other new medical problems. Mr. Burns is in NAD, speaking full sentences, with an SpO2 of 93% on RA. Oropharynx is clear. Chest is clear. RRR, no edema. Spirometry shows mild obstruction with a borderline significant bronchodilator response (stable). CT chest shows changes of his prior surgery. His lung nodules remain stable over time. He has stable small mediastinal lymph nodes. Mr. Burns is stable from a respiratory standpoint. Some of his activity limitation may be related to his COPD/emphysema. We again discussed the potential value of maintenance COPD therapy. He is willing to try using Anoro at this time. He has Albuterol for prn use. His chest imaging is stable over time. I will follow in 12 months. He will receive the flu shot today. He understands this plan and is comfortable with it. > 25 minutes spent face to face with more than half of this for disease counseling about his dyspnea, COPD, and nodules. Francesca Doty MD CNOV Observed: 11/02/2017 Status: COMPLETED Source: [place] 2:25 PM [facility] REPOSITORY Office Visit (PULMMN) RICKY BURNS ([id number]) 1940 M Date Time Provider Department 11/02/17 2:25 PM FRANCESCA DOTY During your visit today, we recorded the following information about you: Temperature Pulse Respiration Blood pressure 97.8 degrees 70/minute 18/minute 106/55 Weight Height 92.1 kg 1.791 m Francesca Doty MD 11/02/2017 3:19 PM Signed 77 year old former smoker seen in f/u for stage IB adenoca s/p LLLectomy in 08/30 (granulomas with Histo forms in the resected specimen and removed lymph nodes) and dyspnea. Hx of CAD s/p CABG, lipids, severe GERD, HTN, and a colon polyp, renal calculi and superficial bladder cancer. Mr. Burns has been generally well. He has noted stable activity tolerance with dyspnea if he is pushing himself. He does not have chest discomfort with his activities but may notice it during rare panic attacks. He has a mild cough without sputum production and a feeling of some chest congestion. He does not have fevers, sweats, or appetite problems. He has not had any respiratory infections requiring treatment between visits. He describes an antibiotic course for a bowel infection that led to hospitalization. He has used his Albuterol infrequently. He has noticed benefit when used. He has not been told of other new medical problems. Mr. Burns is in NAD, speaking full sentences, with an SpO2 of 93% on RA. Oropharynx is clear. Chest is clear. RRR, no edema. Spirometry shows mild obstruction with a borderline significant bronchodilator response (stable). CT chest shows changes of his prior surgery. His lung nodules remain stable over time. He has stable small mediastinal lymph nodes. Mr. Burns is stable from a respiratory standpoint. Some of his activity limitation may be related to his COPD/emphysema. We again discussed the potential value of maintenance COPD therapy. He is willing to try using Anoro at this time. He has Albuterol for prn use. His chest imaging is stable over time. I will follow in 12 months. He will receive the flu shot today. He understands this plan and is comfortable with it. > 25 minutes spent face to face with more than half of this for disease counseling about his dyspnea, COPD, and nodules. Francesca Doty MD Referring Provider: SELF [200] Allergies As of Date: 11/02/2017 (No Known Allergies) Date Reviewed: 11/02/2017 Reviewed by: Helena Lozada Ma - Fully Assessed Reason for Visit: Follow Up [171] Primary Visit Diagnosis:Centrilobular emphysema (HCC) [J43.2] Other Visit Diagnoses:Hx of cancer of lung [Z85.118] Lung nodules [R91.8] Malignant neoplasm of unspecified part of unspecified bronchus or lung (HCC) [C34.90] Order(s):umeclidinium-vilanterol (ANORO ELLIPTA) 62.5-25 mcg/actuation inhalerInhale 1 Inhalation as instructed once daily.Disp: 3 EachRfl: 3 albuterol HFA (VENTOLIN HFA) 90 mcg/actuation inhalerInhale 2 Puffs as instructed every 6 hours as needed.Disp: 3 InhalerRfl: 0 INFLUENZA SEASONAL HIGH DOSE AGE 65+ [[id number]] Order #: [id number] CT CHEST WO IVCON [[id number]] Order #: [id number] FUTURE SPIROMETRY WITH DILATOR IF OBSTRUCTED [[id number]] Order #: [id number] FUTURE Prescriptions as of 11/02/2017 Sig: ALBUTEROL SULFATE HFA 90 MCG/* Inhale 2 Puffs as instructed * AMLODIPINE 10 MG TABLET Take 10 mg by mouth once sharyn* HYDROCHLOROTHIAZIDE 25 MG TAB* Take 25 mg by mouth once sharyn* ISOSORBIDE MONONITRATE ER 60 * Take 60 mg by mouth once sharyn* PRAVASTATIN 40 MG TABLET Take 40 mg by mouth once sharyn* SERTRALINE 50 MG TABLET Take 50 mg by mouth once sharyn* * OMEPRAZOLE 20 MG CAPSULE,JAGJIT* Take one(1) tablet two(2) roxana* * ECOTRIN LOW STRENGTH 81 MG TA* Take one(1) tablet daily. * METOPROLOL TARTRATE 50 MG TAB* Takes 1/2 tab twice daily LOSARTAN 50 MG TABLET UMECLIDINIUM 62.5 MCG-VILANTE* Inhale 1 Inhalation as instru* * BENAZEPRIL 40 MG TABLET Takes 1 to 2 daily Medication notes this encounter HYDROCHLOROTHIAZIDE 25 MG TABLET >> Helena Lozada Ma 11/02/2017 2:11 PM >> BRYSON JEANHELENA Nov 02, 2017 2:11 PM Taking Problem List As Of Date 11/02/2017 Noted Resolved ESOPHAGEAL REFLUX [K21.9] INVALID FOR* STOMACH FUNCTION DIS NEC [K31.89, R10.13] INVALID FOR* PERS HX COLONIC POLYPS [Z86.010] INVALID FOR* CERVICALGIA [M54.2] INVALID FOR* MALIG NEOPLASM BRONCH/LUNG NOS [C34.90] INVALID FOR* Unspecified esophagitis [K20.9] INVALID FOR* 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] INVALID FOR* Diaphragmatic hernia without mention of obstruc*INVALID FOR* S/P CABG x 6 [Z95.1] INVALID FOR* CAD (coronary artery disease) [I25.10] INVALID FOR* BPH (benign prostatic hyperplasia) [N40.0] INVALID FOR* HTN (hypertension) [I10] INVALID FOR* History of lung surgery [Z98.890] INVALID FOR* Hyperlipidemia [E78.5] INVALID FOR* Anxiety neurosis [F41.1] INVALID FOR* Dysphagia, pharyngoesophageal phase [R13.14] INVALID FOR*10/04/2014 GERD without esophagitis [K21.9] INVALID FOR*05/30/2015 Ulcer of esophagus without bleeding [K22.10] INVALID FOR* Prescriptions ordered this encounter Disp Refills Start End UMECLIDINIUM 62.5 MCG-VILANTEROL 25 * 3 Ea* 3 11/02/2017 11/02/2018 Route: INHALATION Sig: Inhale 1 Inhalation as instructed once daily. ALBUTEROL SULFATE HFA 90 MCG/ACTUATI* 3 In* 0 11/02/2017 Route: INHALATION Sig: Inhale 2 Puffs as instructed every 6 hours as needed. Medications Discontinued During This Encounter valsartan 160 mg tablet 11/02/2017 Class: Historical Med Route: ORAL Sig: Take 160 mg by mouth twice daily. Disc: Changing Therapy/Dosage Form ALBUTEROL SULFATE (VENTOLIN HFA INHA* 11/02/2017 Class: Historical Med Route: INHALATION Sig: Inhale as instructed as needed. Disc: Reason for discontinue is not on file. Disposition: Return in about 1 year (around 11/02/2018) for f/u with ebony and chest ct in 1 year. Follow-up and Disposition History Recorded Encounter Status:Closed by FRANCESCA DOTY MD on 11/02/17 CT CHEST WO IVCON Observed: 11/02/2017 Status: F Source: [place] 12:14 PM [facility] REPOSITORY * * *Final Report* * * DATE OF EXAM: Nov 02 2017 12:14PM [facility] [place] CHEST WO IVCON / PROCEDURE REASON: multiple diagnoses * * * * Physician Interpretation * * * * EXAMINATION: CHEST CT WITHOUT CONTRAST CLINICAL HISTORY: 76?year old former smoker seen in f/u for stage IB adenocarcinoma s/p Left Lower Lobectomy in 08/30 (granulomas with Histo forms in the resected specimen and removed lymph nodes) and dyspnea Technique: Spiral CT acquisition of the chest from the thoracic inlet to the upper abdomen without contrast. MQ: [id number] CT Dose-Length Product: 447 mGy*cm CT Dose Reduction Employed: Automated exposure control (AEC) Comparison: Chest CT 11/11/2016, CT 11/05/2015 RESULT: Limitations: None. Lines, tubes, and devices: None. Lung parenchyma and pleura: Post surgical changes related to prior left lower lobe lobectomy. Trachea and central bronchi are patent, with no endobronchial lesion detected. There is mild smooth bronchial wall thickening. Moderate upper lobe predominant centrilobular and scattered paraseptal emphysema, as on priors. Multiple stable (from at least 11/05/2015) calcified nodules consistent with granulomata, measuring 11 mm or less, for example in the right lower lobe (image 111,130), left posterior lung (image 128) . No new or enlarging pulmonary nodules. Reticular opacities within the right lower lobe posteriorly may be due to subsegmental atelectasis or mild nonspecific fibrotic change, possibly smoking related. There is mild biapical scarring, unchanged in appearance. Stable tiny loculated pleural fluid collection at the medial left lung base (image 136). No pneumothorax. Thoracic inlet, heart, and mediastinum: The visualized portion of the thyroid is without focal abnormality. No axillary or supraclavicular lymphadenopathy. Stable to mildly decreased size of mildly enlarged mediastinal and left hilar lymph nodes. For example a 13 mm subaortic (image 83) previously measured 15 mm in short axis and left hilar 12 mm lymph node is stable (image 107). Esophagus is nondilated. Medium-sized hiatal hernia, without significant change. There are moderate atherosclerotic calcifications involving the thoracic aorta and proximal arch branch vessels. The thoracic aorta is upper normal in caliber, measuring 3.8 cm in the mid ascending segment. Mild aortic valve leaflet calcifications noted, a finding that can be seen in the setting of aortic stenosis. The main pulmonary artery is enlarged, measuring 3.2-3.3 cm, a finding that can be seen in the setting of pulmonary hypertension. Borderline left atrial enlargement. Status post CABG. There are few atherosclerotic calcifications in the graft vessels and three-vessel atherosclerotic calcifications in the [place] coronary arteries. No pericardial effusion or thickening. Bones and soft tissues: No destructive bone lesion. Status post median sternotomy. Mild endplate degenerative changes of the thoracic spine. Upper abdomen: No acute abnormality in the imaged upper abdomen. Few nonobstructive renal calculi in the superior pole of the right and left kidney. Small cortical cysts of the right kidney are stable. Stable approximately 1.3 cm right adrenal nodule, likely an adenoma. Moderate to severe atherosclerotic calcification of the imaged abdominal aorta and proximal branch vessels. IMPRESSION: Stable postsurgical changes of left lower lobectomy. Multiple scattered coronary nodules are stable since chest CT of 11/05/2015 and likely benign. Stable to slightly decreased size of enlarged mediastinal lymph nodes since prior chest CT of 11/05/2015. Moderate upper lobe predominant emphysema. I agree that this report by the resident or fellow represents my interpretation of the study. Crossbow Maker: MIRYAM Transcribe Date/Time: Nov 02 2017 2:30P Dictated by : SUDHAKAR CARTER MD This examination was interpreted and the report reviewed and electronically signed by: ANJELICA MCHUGH MD on Nov 02 2017 4:13PM EST [id number] PROGRESS Observed: 11/02/2017 Status: COMPLETED Source: [place] 12:07 PM [facility] REPOSITORY HNO ID: [id number] Author: TEMO Gross (Ct) Service: Radiology Author Type: Clinical Advertisement Distributor Type: Progress Notes Filed: 11/02/2017 12:12 PM Note Text: Radiology Service Progress Note PATIENT NAME: Ricky Burns DATE OF SERVICE: November 02, 2017 TIME: 12:07 PM PATIENT IDENTITY VERIFICATION COMPLETED USING TWO (2) METHODS: Patient confirmed name verbally and ID band matches.. PATIENT GENDER DATA: Male PATIENT RELEVANT IMPLANT DATA REVIEWED: Yes RADIOLOGY DEPARTMENT: CT; Exam(s) Completed: Chest PERIPHERAL IV DATA: Not applicable SIGNED BY: TEMO Gross November 02, 2017 12:07 PM CNCO Observed: 11/02/2017 Status: COMPLETED Source: [place] 12:00 AM [facility] REPOSITORY Letter Text Francesca Doty M.D., M.P.H., F.C.C.P Respiratory [facility]. [place], [place] [address] (office) [phone] (fax) (email) November 02, 2017 Torie Fletcher MD [facility] [place] [address] RE: Ricky Burns [facility] #: [id number] : [address] Fletcher, Thank you for allowing me to participate in the care of Ricky Burns. Mr. Burns is a 77 year old former smoker seen in f/u for stage IB adenoca s/p LLLectomy in 08/30 (granulomas with Histo forms in the resected specimen and removed lymph nodes) and dyspnea. His other history includes CAD s/p CABG, lipids, severe GERD, HTN, and a colon polyp, renal calculi and superficial bladder cancer. Mr. Burns has been generally well. He has noted stable activity tolerance with dyspnea if he is pushing himself. He does not have chest discomfort with his activities but may notice it during rare panic attacks. He has a mild cough without sputum production and a feeling of some chest congestion. He does not have fevers, sweats, or appetite problems. He has not had any respiratory infections requiring treatment between visits. He describes an antibiotic course for a bowel infection that led to hospitalization. He has used his Albuterol infrequently. He has noticed benefit when used. He has not been told of other new medical problems. Mr. Burns is in NAD, speaking full sentences, with an SpO2 of 93% on RA. Oropharynx is clear. Chest is clear. RRR, no edema. Spirometry shows mild obstruction with a borderline significant bronchodilator response (stable). CT chest shows changes of his prior surgery. His lung nodules remain stable over time. He has stable small mediastinal lymph nodes. Mr. Burns is stable from a respiratory standpoint. Some of his activity limitation may be related to his COPD/emphysema. We again discussed the potential value of maintenance COPD therapy. He is willing to try using Anoro at this time. He has Albuterol for prn use. His chest imaging is stable over time. I will follow in 12 months. He will receive the flu shot today. He understands this plan and is comfortable with it. Please do not hesitate to contact my office if you have any further questions regarding my evaluation. Thank you. Thank you once again for considering [facility] for the care of your patients. Sincerely, MD ROMAIN Carvajal/billy CARDIOLOGY VISIT Observed: 09/10/2017 Status: F Source: [place] REPORT 4:08 PM [facility] - [place] [facility] [address] [place] [address] OFFICE VISIT Date of Service: 09/10/17 MR#: [id number] Acct: [id number] Name: RICKY BURNS Rep #: [id number] : 1940 Provider: Butch Viera MD Age/Sex: 76/M Location: [facility] Status: Signed HPI HPI Chief Complaint: Follow up visit Details: RICKY BURNS, is a 76 M who presents to the office today for a cardiovascular follow-up. He has a history of coronary artery disease with bypass surgery in 2003. He had a JUAREZ sequentially to the ramus intermedius and first diagonal, BUD to the LAD, SVG to the second diagonal, SVG sequentially to the posterior descending and circumflex. Heart catheterization done in 2012 were similar to 2004. He also has a history of hypertension, hyperlipidemia, left lower lobe lobectomy without radiation for [...] Pressure 132/8 Intake Visit Reasons: 6 M Pelts Skinner Required: No Accompanied by: none Is patient in pain?: No Allergies No Known Allergies Allergy (Verified 09/10/17 09:11) Medications Albuterol Inhaler [Ventolin Hfa] 1 - 2 puff INHALATION Q4H PRN PRN 12/04/15 [History Confirmed 09/10/17] Aspirin E.C. [Ecotrin] 81 mg PO DAILY@0800 12/04/15 [History Confirmed 09/10/17] Pravastatin [Pravachol] 40 mg PO DAILY 12/04/15 [History Confirmed 09/10/17] Sertraline HCl [Zoloft] 75 mg PO DAILY 12/04/15 [History Confirmed 09/10/17] Valsartan [Diovan] 80 mg PO BID #0 12/14/16 [Rx Confirmed 09/10/17] nitroglycerin 0.4 mg sublingual tablet 0.4 mg SUBLINGUAL Q5M PRN 02/27/17 [History Confirmed 09/10/17] amlodipine 10 mg tablet 10 mg PO QDAY #90 tab 08/10/17 [Rx Confirmed 09/10/17] isosorbide mononitrate ER 60 mg tablet,extended release 24 hr 60 mg PO DAILY #90 tab 08/10/17 [Rx Confirmed 09/10/17] metoprolol tartrate 25 mg tablet 12.5 mg PO BID #90 tab 08/10/17 [Rx Confirmed 09/10/17] omeprazole 20 mg capsule,delayed release 20 mg PO BID #180 cap 08/10/17 [Rx Confirmed 09/10/17] hydrochlorothiazide 25 mg tablet 25 mg PO QDAY #90 tab 09/10/17 [Rx Confirmed 09/10/17] REPLACED BY [facility] Medical History Atherosclerotic heart disease of [place] coronary artery without angina pectoris (Chronic) HLD (hyperlipidemia) (Chronic) HTN (hypertension) (Chronic) Arteriosclerosis of arterial coronary artery bypass [...] (Chronic) History of transurethral resection of prostate (Chronic 06/03/06) Family History Mother Cancer Lung CA Brother Diabetes Social History Smoking Status: Former smoker alcohol intake: current alcohol intake frequency: a few times a week Alcohol type: wine substance use type: does not use caffeine: Yes Type: coffee Number of servings: 3 what type of physical activity do you participate in: none seatbelt use: always do you feel safe at home: Yes ROS Const Const: Positive for headache(s) (for the last 6 months); negative for fatigue, weakness, night sweats, excessive sweating, frequent falls or daytime sleepiness Eyes Eyes: Negative for loss of peripheral vision, transient loss of vision, blind spots, double vision or blurry vision ENT ENT: Positive for headache(s) (for the last 6 months); negative for dizziness, balance problems, Nosebleed/epistaxis, tongue [...] pain Skin Skin: Negative non-healing lesions, unusual bruising or rash Neuro Neuro: Positive for headache(s) [...] Appearance: well nourished and average body habitus Orientation: alert, awake and oriented x3 Head Head: normal to inspection, normocephalic and atraumatic Ears: hearing grossly normal bilaterally and external ears normal Nose: external nose normal, nasal mucous membranes and turbinates normal, nares normal, septum normal, no nasal discharge Face and Sinus: face symmetric Mouth: oral mucosae normal, tongue normal, oropharynx normal and moist mucous membranes Teeth and gingiva: dentition normal Throat: posterior oropharynx normal, tonsils normal and uvula midline Eyes General: appearance normal, both eyes and all related structures Eyelids: eyelids normal Conjunctivae: conjunctivae normal Pupils: PERRL, normal by confrontation and accommodation normal EOM: EOM intact bilaterally Neck Neck: normal visual inspection, trachea midline and no JVD JVD: +5 Carotids: normal carotid upstroke and bounding pulses Chest Auscultation: Bilateral: Rales Cardio Palpation: normal PMI Rate: regular rate Rhythm: regular rhythm Heart sounds: S1 normal, S2 normal and normal, physiologic split S2; negative rub, gallop or murmur GI GI: normal to inspection, soft, no hepatosplenomegaly and bowel sounds present Neuro General: alert, awake, oriented x3, no focal sensory deficit, gait normal and moves all extremities Skin Skin: no rashes or lesions noted Extremities Pulses: Normal: Right Femoral Pulse, Left Femoral Pulse, Right Dorsalis Pedis Pulse, Left Dorsalis Pedis Pulse, Right Posterior Tibial Pulse, Left Posterior Tibial Pulse, Right Radial Pulse, Left Radial Pulse Lower Extremity Edema: None: Bilateral Musculoskel Musculoskeletal: No joint tenderness Psych Psychological: normal affect Assessment AND Plan 1. Shortness of breath R06.02 Plan He does have mild shortness of breath which is likely secondary to diastolic dysfunction his last echocardiogram in 2016 demonstrated ejection fraction of 60% with trivial mitral regurgitation trivial tricuspid regurgitation and pulmonary systolic pressure of at least 44 mmHg I will suggest that we reinstitute his hydrochlorothiazide 25 mg once a day. 2. Essential hypertension I10 Plan His blood pressure appears to be under good control on the present medical therapy and other than the addition of the hydrochlorothiazide no other changes will be made. 3. 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 He did undergo stress testing in 2017 which was negative for ischemia. We will continue to manage him aggressively. 4. Pure hypercholesterolemia E78.00 Plan He does have a history of hyperlipidemia but his most recent lipid profile demonstrated total cholesterol 155, HDL of 41, and LDL of 93. Triglycerides 106. The above listed numbers are acceptable and I would not suggest making any changes. 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 Pure hypercholesterolemia E78.00 Hyperlipidemia type: pure hypercholesterolemia 09/10/17 1608 <Electronically signed by Butch Viera MD> Date Butch Viera MD Cosigner Signature: Date (if applicable) CC: Rosana Douglass DO LIVER PROFILE Collected: 09/08/2017 Status: F Source: [place] 7:58 AM [facility] REPOSITORY TYPE CODE TESTS RESULT OUT OF RANGE REFERENCE UNITS LAB L501.1500 6.4-8.2 g/dL Normal T PROT 7.4 LAB L501.1800 3.2-5.0 g/dL Normal ALB 3.6 LAB L501.1950 2.2-4.2 g/dL Normal GLOB 3.8 LAB L501.4100 15-37 U/L Normal AST 16 LAB L501.4305 45-117 U/L Normal ALK P 71 LAB L501.4405 16-61 U/L Normal ALT 17 LAB L501.4600 0.20-1.00 mg/dL Normal T BILI 0.50 LAB L501.4700 0.00-0.30 mg/dL Normal D BILI 0.12 Performed By: #### L500.3400, L500.4100 #### [facility] [address] [place], [address] LIPID PROFILE Collected: 09/08/2017 Status: F Source: [place] 7:58 AM [facility] REPOS[facility]ORY TYPE CODE TESTS RESULT OUT OF RANGE REFERENCE UNITS LAB L501.4900 200 mg/dL Normal CHOL 155 Result Comment: <200 mg/dL Desirable 200-240 mg/dL Borderline >240 mg/dL High Risk LAB L501.5000 mg/dL Normal TRIG 106 Result Comment: The drugs N-Acetylcysteine and Metamizole may falsely depress this assay. Serum Triglycerides Reference Interval Normal <150 mg/dL Borderline high 150 - 199 mg/dL High 200 - 499 mg/dL Very High > or = 500 mg/dL LAB L501.6400 mg/dL Normal HDL 41 Result Comment: The drugs N-Acetylcysteine and Metamizole may falsely depress this assay. Reference Range HDL <40 mg/dL Low HDL Cholesterol HDL >or= 60 mg/dL High HDL Cholesterol LAB L501.6500 0-130 mg/dL Normal LDL 93 LAB L501.6600 5-40 mg/dL Normal VLDL 21 Performed By: #### L500.3400, L500.4100 #### [facility] [address] [place], [place], [address] PT ED Observed: 03/19/2017 Status: COMPLETED Source: [place] 9:53 AM [facility] REPOSITORY HNO ID: [id number] Author: Lianna FlorRn) SANDRA Porras Service: (none) Author Type: Registered Nurse Type: Patient Education Filed: 03/19/2017 9:55 AM Note Text: Patient did not experience a fall prior to discharge. Patient did not experience a burn prior to discharge. Lianna Porras RN PT ED Observed: 03/19/2017 Status: COMPLETED Source: [place] 9:53 AM [facility] REPOSITORY HNO ID: [id number] Author: Lianna Porras RN Service: (none) Author Type: Registered Nurse Type: Patient Education Filed: 03/19/2017 9:55 AM Note Text: POST OP LEARNING RESPONSE INSTRUCTION PROVIDED TO: Patient METHOD OF INSTRUCTION: Individual instruction Written instruction - handouts Verbal instruction PATIENT / FAMILY RESPONSE: Information received as demonstrated by interest and questions FOLLOW-UP PLAN: Follow up phone call. Contact information given. SUPPLEMENTAL MATERIAL: Procedure discharge instructions REFERRAL (RECOMMENDATION): None Electronically Signed By: Lianna Porras RN In Department: AMBULATORY SURGERY NURSING PROG Observed: 03/19/2017 Status: COMPLETED Source: [place] 9:45 AM [facility] REPOSITORY HNO ID: [id number] Author: Lianna Porras RN Service: (none) Author Type: Registered Nurse Type: Nursing Progress Note Filed: 03/19/2017 10:21 AM Note Text: Dr. Parks at bedside to review procedure and recommendations with patient. Questions answered. Lianna Porras RN NURSING PROG Observed: 03/19/2017 Status: COMPLETED Source: [place] 8:53 AM [facility] REPOSITORY HNO ID: [id number] Author: Lianna Porras RN Service: (none) Author Type: Registered Nurse Type: Nursing Progress Note Filed: 03/19/2017 10:19 AM Note Text: Arrived in phase II via cart. Left lateral position. Sedated, but responds to verbal stimuli. Color normal; skin warm and dry. Respirations wnl and unlabored. Abdomen soft and with + bowel sounds in quads X 4. Patient resting. No family available at this time comfortably. . Lianna Porras RN NURSING PROG Observed: 03/19/2017 Status: COMPLETED Source: [place] 8:52 AM [facility] REPOSITORY HNO ID: [id number] Author: Jolie FlorRnGloria Mi RN Service: Nursing Author Type: Registered Nurse Type: Nursing Progress Note Filed: 03/19/2017 8:52 AM Note Text: Preoperative order for IV Antibiotic Prophylaxis is N/A. Patient did not experience a fall within the Intraoperative procedural area. Patient did not experience a burn within the Intraoperative procedural area. Jolie Mi RN NURSING PROG Observed: 03/19/2017 Status: COMPLETED Source: [place] 7:57 AM [facility] REPOSITORY HNO ID: [id number] Author: Lianna Porras RN Service: (none) Author Type: Registered Nurse Type: Nursing Progress Note Filed: 03/19/2017 7:58 AM Note Text: [facility] PRE-OP NURSING HAND OFF NOTE SBAR Hand off given to Jolie Mi RN. Hand off was communicated verbally and at the patient's bedside and all questions were answered. FALLS/RIVERO Patient did not experience a fall within the Preoperative area. Patient did not experience a burn within the Preoperative area. Lianna Porras RN PT ED Observed: 03/19/2017 Status: COMPLETED Source: [place] 7:24 AM [facility] REPOSITORY HNO ID: [id number] Author: Lianna Porras RN Service: (none) Author Type: Registered Nurse Type: Patient Education Filed: 03/19/2017 7:24 AM Note Text: Discharge Instructions were reviewed pre-operatively with the patient. All questions and concerns were addressed. Lianna Porras RN PT ED Observed: 03/19/2017 Status: COMPLETED Source: [place] 7:23 AM [facility] REPOSITORY HNO ID: [id number] Author: Lianna Porras RN Service: (none) Author Type: Registered Nurse Type: Patient Education Filed: 03/19/2017 7:24 AM Note Text: PRE OP LEARNING ASSESSMENT PROCEDURE/SURGERY: GI PROCEDURES: Colonoscopy READINESS TO LEARN COGNITIVE ABILITY: Alert and oriented MOTIVATION TO LEARN: Interested FAMILY SUPPORT: High - Very involved in pt care PATIENT LEARNS BEST BY: Multiple Methods FACTORS AFFECTING LEARNING: None PHYSICAL LIMITATIONS AFFECTING LEARNING: None Electronically Signed By: Lianna Porras RN In Department: AMBULATORY SURGERY SURGICAL PATHOLOGY Observed: 03/19/2017 Status: F Source: [place] 12:00 AM [facility] REPOSITORY Specimen originated from [facility] Specimen #: [id number] Submitting Physician: KRISTEN PARKS MD FINAL DIAGNOSIS 1. Colon, cecal polyp, biopsy (A) - Fragments of tubular adenoma. 2. Colon, splenic flexure polyp, biopsy (B) - Fragments of tubular adenoma. 3. Colon, sigmoid polyp, biopsy (C) - Fragments of tubular adenoma. ES/gp 03/20/2017 Gabby Rao M.D. (Electronic Signature) SPECIMEN SUBMITTED A: CECUM POLYP B: SPLENIC FLEXURE POLYP C: SIGMOID COLON POLYP CLINICAL DATA K59.00 GROSS DESCRIPTION A. Received in formalin are three pieces of torrez, soft tissue aggregating to 0.8 x 0.2 x 0.1 cm. Totally submitted in one cassette. B. Received in formalin are four pieces of torerz, soft tissue aggregating to 1.1 x 0.2 x 0.1 cm. Totally submitted in one cassette. C. Received in formalin are six pieces of torrez, soft tissue aggregating to 1.6 x 0.2 x 0.2 cm. Totally submitted in one cassette. Gross examination performed at [facility], [address] [place] [address] MM 03/19/2017 11:05:56 PM Date of Report: 03/20/2017 Date of Procedure: 03/19/2017 Date of Receipt: 03/19/2017 Submitted by: KRISTEN PARKS MD [facility] Diagnostic interpretation performed at [facility], [address] [place] [address]. HISTORY PHYSICAL Observed: 03/18/2017 Status: COMPLETED Source: [place] 7:13 PM [facility] REPOSITORY HNO ID: [id number] Author: Kristen Parks Service: (none) Author Type: Physician Type: HANDP Filed: 03/18/2017 7:21 PM Note Text: Ricky Burns : 1940 CC: incomplete colonoscopy in past History of Present Illness: The patient is a 76 year old WM who presents for colonoscopy. Attempted previous colonoscopy in December 2016 for diagnosis of severe constipation, then diarrhea and also fecal urgency and rectal bleeding. Incomplete due to severe inflammation of sigmoid colon found precluding advancement/completion. Biopsies revealed pathology of: Colonic mucosa with changes of inflammatory type polyp with mucosa prolapse with ulceration and granulation tissue. Empirically treated with antibiotics for presumed diverticulitis. Patient symptoms resolved. Last colonoscopy 2009 with findings of diverticulosis, hemorrhoidal disease Past Medical History: History of coronary artery diseas History of nephrolithiasis Hx Lung cancer s/p L lobe resection Benign hypertension (Chronic) Bladder cancer (Chronic) HLD (hyperlipidemia) (Chronic) History of coronary artery disease (Chronic) History of nephrolithiasis (Chronic) Pulmonary nodules (Chronic) Past Surgical History: Surgical History: coronary bypass surgery, - - lower lobe lobectomy due to malignant 12/10/2015 which revealed normal LV systolic function, EF 60%, mildly enlarged left atrium, no significant valvular abnormalities, RVSP 44. Right lower lobe community-acquired qludsznvb-dpuv-swibdpas bacterial Medications: Albuterol Amlodipine Isosorbide mononitrate Pravastatin Sertraline Valsartan Omeprazole Aspirin Metoprolol Hydrochlorothiazide Ibuprofen benazepril Allergies: No known drug allergies Review of Systems: General - denies fevers, denies anorexia Cardiovascular ? 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 denies shortness of breath, denies coughing up blood, seen by his lung cancer doctor about 2 months ago Gastrointestinal ? Has known hemorrhoids, denies abdominal pain Neurological ? denies seizures Genitourinary ? denies blood in urine, denies burning with urination Hematological ? denies spontaneous/prolonged bleeding Skin ? denies nonhealing skin wounds Musculoskeletal ? denies history of fractures Endocrine ? denies diabetes Psychological ? denies hallucinations Physical examination: Vital signs in chart, reviewed and noted by me General ? WD/WN WM in no apparent distress, alert and oriented Head ? Normocephalic. EOM intact with sclera clear. Mouth with mucus membranes moist. Neck - supple with no jugular venous distention noted. Trachea is midline. Lungs ? clear to auscultation. Normal breath sounds. No rales/rhonchi/wheezing noted. Heart ? normal S1 and S2 auscultated. No rubs/clicks/murmurs noted. Regular rate. Abdomen ? soft and benign. Normal bowel sounds Extremities ? no calf tenderness noted. No pitting edema noted. Skin ? Normal skin integrity. Neurological ? non focal Psych ? calm and appropriate Impression: change in bowel habits - incomplete colonoscopy in December 2016 Discussion/Plan/Recommendations: I have discussed the above with the patient. I have offered colonoscopy I have explained the procedure to the patient. I have counseled the patient as to the risks of the procedure, including but not limited to: infection, bleeding, injury to any intrabdominal organs such as liver/spleen, perforation of the GI tract, inability to complete the procedure, complications of anesthesia, etc. ? the patient understands. The patient wishes to proceed. I have answered all questions to the patient?s satisfaction and the patient has no further questions. ALLERGIES ALLERGIES DATE TYPE / CODE NAME / CODE REACTION SEVERITY SOURCE 09/10/2017 Drug No Known Unknown [facility] Allergy/416 Allergies/T59341 [facility] 842068(SNOM 0388(RXNORM) Repository ED CT) Drug NO KNOWN [facility] Class/53966 ALLERGIES [facility] 1003(SNOMED Repository CT) ENCOUNTERS ENCOUNTERS ADMIT/DISCHARGE ACCOUNT ADMITTING ENCOUNTER LOCATION SOURCE NUMBER CLASS 02/08/2018 [id number] [facility] ing:LABSPEC Repository 12/15/2017 [id number] [facility] ing:CT Repository 12/14/2017 [id number] [facility] ing:HPRAD Repository 11/02/2017/11/04/19 [id number] Ambulatory [address] Repository 11/02/2017/11/07/[id number] Repository 11/02/2017/11/03/[id number] Repository 09/10/2017/09/11/19 [id number] Ambulatory BMSBuilding:B [place] [address] Repository 09/08/2017 [id number] [facility] ing:LAB Repository 03/19/2017/03/19/19 [id number] KRISTEN PARKS Ambulatory [address] Repository PAYERS PAYERS ENCOUNTER GUARANTOR PAYER SUBSCRIBER SOURCE 02/08/2018 RICKY Edwards Primary RICKY Reynoso [id number] E Insurance:MEDICARE CROSBYDOB: [facility] [place] PART A [facility] [id number] Number: Repository [address]Txp: 330 [id number] [phone] (HP) Date:2018-02-08 02/08/2018 Secondary RICKY Reynoso Insurance:[place] CROSBYDOB: [id number] Number: [id number] Date:[id number] [address] [address], [place] [address]NR: 02/08/2018 Tertiary NOT GIVENUNK [place] Insurance:SELF PAY [facility] Number: Effective Repository Date:2018-02-08 12/15/2017 RICKY Edwards Primary RICKY Reynoso [id number] E Insurance:MEDICARE CROSBYDOB: [facility] PART A [facility] [id number] Number: Repository [id number]: 330 [id number] [phone] (HP) Date:2017-12-15 12/15/2017 Secondary RICKY Reynoso Insurance:[place] CROSBYDOB: [id number]ository Number: [id number] Date:[id number] RE [address] [address], [place] [address]QV: 12/15/2017 Tertiary NOT GIVENUNK [place] Insurance:SELF PAY [facility] Number: Effective Repository Date:2017-12-15 12/14/2017 RICKY Edwards Primary RICKY Reynoso [id number] E Insurance:MEDICARE CROSBYDOB: [facility] [place] PART A [facility] [id number], [place] Number: Repository [address]Bkc: 330 [id number] [phone] (HP) Date:2017-12-14 12/14/2017 Secondary RICKY Reynoso Insurance:[place] CROSBYDOB: [facility] [id number] [facility] Number: [id number] Date:3935-10-01FOZGSK RE [address] [address], [place] [address]QU: 12/14/2017 Tertiary NOT GIVENUNK [place] Insurance:SELF PAY [facility] Number: Effective Repository Date:2017-12-14 09/10/2017 RICKY Edwards Primary RICKY Reynoso [id number] E Insurance:MEDICARE CROSBYDOB: Community [place] PART A [id number] [place] Number: Repository [address]Kco: 330 [id number] [phone] (HP) Date:2017-02-27 09/10/2017 Secondary RICKY Reynoso Insurance:[place] CROSBYDOB: [facility] [id number] Repository Number: [id number] Date:[id number] RE [address] [address]AXACN, [place] [address]XE: 09/10/2017 Tertiary NOT GIVENUNK [place] Insurance:SELF PAY [facility] Number: Effective Repository Date:2017-09-10 09/08/2017 RICKY Edwards Primary RICKY Reynoso [id number] E Insurance:MEDICARE CROSBYDOB: Community [place] PART A [facility] [id number] Number: Repository [id number]: [phone] [id number] [phone] (HP) Date:2017-09-08 09/08/2017 Secondary RICKY Reynoso Insurance:[place] CROSBYDOB: [facility] [id number] [facility] Repository Number: [id number] Date:[id number] RE [address] [address]RFTMI, [place] [address]XJ: 09/08/2017 Tertiary NOT GIVENUNK [place] Insurance:SELF PAY [facility] Number: Effective Repository Date:2017-09-08
== END ==
PROVIDERS: Family Provider Internal Medicine; PCP Internal Medicine; Referring Provider Urology; Visit Provider Urology
DX: R31.9 Hematuria, unspecified (principal)
CPT/HCPCS: 88108; 88313

== ENCOUNTER → 2018-06-03 | Outpatient (CLI) | payer MEDICARE, OTHER, SELFPAY ==
[2017-09-10 09:10] VITALS: BMI 29.5
--- NOTE | 2018-06-03 | CYSPIN_PTH ---
PATIENT: RICKY BURNS LOC: [facility] U#:[id number] AGE/SX: 77/M ROOM: RE06/03/[address]: Dr. Yandel Murrieta MD : 1940 BED: DIS: 06/03/2018 SPEC #: [id number] RECD: 06/03/18 10:00 STATUS: EFRA ALAYNA #: [id number] GRETCHEN: 06/03/18 00:[address]: Yandel Murrieta DEPT: CYTOLOGY RECD BY: Daryl Nielsen ENTERED: 06/04/18 10:51 SP TYPE: CYSPIN FL OTHR DR: Dr. Rosana Douglass, DO Tissues: Urine Procedures: Pap Stain (control) Special Stain Group II Cytospin Fluid HEADER OPERATION: Not noted PRE-OP DIAGNOSIS: Hematuria TISSUE SUBMITTED: Urine for cytology DIAGNOSIS CYTOLOGY Urine for cytology (cytospin): Rare atypical urothelial cells are present. Marked acute inflammation. See Comment. 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 Case has been reviewed in consultation with Dr. Morrow who concurs with the above diagnosis. IDC:SJ CYTOLOGY STUDY Slides are reviewed. . CYTOLOGY GROSS Received is 15 ml of orange cloudy fluid labeled with the patient's name and and designated per the requisition as urine. Submitted for cytology preparation. / 06/04/18 TC:2 CPT: 20633
[2018-06-03 17:08] LABS: Cytology, Body Fluid / CSF SEE PATHOLOGY REPORT
== END | disposition home or self-care (01) ==
LOC: LABSPEC 16:28
PROVIDERS: Family Provider Internal Medicine; PCP Internal Medicine; Referring Provider Urology; Visit Provider Urology
DX: R31.9 Hematuria, unspecified (principal)
CPT/HCPCS: 88108; 88313

== ENCOUNTER 2018-06-30 11:52 | Day surgery (SDC) | payer MEDICARE, OTHER, SELFPAY ==
[2018-06-23 11:29] VITALS: BP 127/72; PULSE 57; RESP 16; TEMP 36.3; O2SAT 94; BMI 30.4
--- NOTE | 2018-06-23 11:54 | SDCEKG_ITS ---
Test Reason : Blood Pressure : / mmHG Vent. Rate : 055 BPM Atrial Rate : 055 BPM P-R Int : 192 ms QRS Dur : 116 ms QT Int : 452 ms P-R-T Axes : 062 -46 -01 degrees QTc Int : 432 ms Sinus bradycardia Left axis deviation Pulmonary disease pattern Confirmed by MATTHEW GARCIA, JOANNE ([id number]), fashion editor GABRIELLA IBARRA ([id number]) on 06/30/2018 1:46:24 PM Referred By: Yandel Murrieta Confirmed By:JOANNE CASTRO MD
[2018-06-23 12:28] LABS: Hematocrit 44.5 % (40-54); Hemoglobin 14.9 g/dl (13.0-16.5); Mean Corp Hgb Conc 33.5 g/gl (32-36); Mean Corpuscular Hgb 30.3 pg (27.0-32.0); Mean Corpuscular Volume 90.4 fL (80-94); Mean Platelet Vol. 10.5 fl (6.2-12.0); Platelet Count 148 K/mm3 (150-450); RBC Distribution Width CV 13.1 % (11.6-14.6); RBC Distribution Width SD 42.9 fl (35.1-43.9); Red Blood Count 4.92 M/mm3 (4.6-6.2); White Blood Count 8.1 K/mm3 (4.4-11.0)
[2018-06-23 12:42] LABS: Anion Gap 5 (5-15); BUN 31 mg/dL (7-18); BUN/Creat Ratio 25.8 RATIO (10-20); Calcium,Total 9.8 mg/dL (8.5-10.1); Chloride 107 mmol/L (98-107); EST Glomerular Filtration Rate 63 mL/min (>60); Est Glom Filt Rate - Afr Amer 76 mL/min (>60); Estimated Creatinine Clearance 54.07 ml/min; Glucose 98 mg/dL (74-106); Potassium 4.3 mmol/L (3.5-5.1); Sodium Level 138 mmol/L (136-145)
[2018-06-23 12:58] LABS: Scan Indicated on CBC? Y/N NO
--- NOTE | 2018-06-30 | IMM_PTH ---
PATIENT: RICKY BURNS LOC: [facility] [place] U[place][id number] AGE/SX: 77/M ROOM: RE06/30/[address]: Dr. Ynadel Murrieta MD : 1940 BED: DIS: 06/30/2018 SPEC #: [id number] RECD: 07/02/18 13:54 STATUS: EFRA REQ #: [id number] GRETCHEN: 06/30/18 00:[address]: Yandel Murrieta DEPT: IMMUNOHISTOCHEMISTRY RECD BY: Shena Abdi ENTERED: 07/02/18 13:55 SP TYPE: IMMUNO OTHR DR: Dr. 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 Localization is made via biotin free immunoperoxidase method. Appropriate controls are performed and reacted as expected. Results on target cell population are indicated in the following table: RESULTS: ANTIBODY / CLONE RESULT CK7 (OV-TL12/30) positive CK20 (KS20.8) positive P53 (DO-7) positive, a few cells, weak These tests were developed and their performance characteristics determined by [facility]. They may not have been cleared or approved by the U.S. Food and Drug Administration. The FDA has determined that such clearance or approval is not necessary. 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 SJ:lorenzo 07/02/18
[2018-06-30 12:10] VITALS: BP 142/86; PULSE 52; RESP 16; TEMP 36.3; O2SAT 96; BMI 30.4
--- NOTE | 2018-06-30 13:30 | BLB_PTH ---
PATIENT: RICKY BURNS LOC: [facility] [place] U#:[id number] AGE/SX: 77/M ROOM: RE06/30/[address]: Dr. Yandel Murrieta MD : 1940 BED: DIS: 06/30/2018 SPEC #: [id number] RECD: 06/30/18 15:12 STATUS: EFRA ALAYNA #: [id number] GRETCHEN: 06/30/18 13:[address]: Yandel Murrieta DEPT: SURGICAL PATHOLOGY RECD BY: Daryl Nielsen ENTERED: 07/01/18 08:20 SP TYPE: TURB OTHR DR: Dr. Rosana Douglass, Tissues: Urinary bladder, NOS Procedures: Surgery Specimen Level V HEADER OPERATION: Cysto, TUR bladder, Olympus PRE-OP DIAGNOSIS: Bladder tumor TISSUE SUBMITTED: Bladder tumor MICROSCOPIC DIAGNOSIS Bladder tumor, TUR: A piece of urothelial mucosa with moderate to severe epithelial atypia. Focal congestion and chronic inflammation. Negative for malignancy. See comment. 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 Immunohistochemistry ([id number]) supports the above diagnosis. Please make reference to previous specimens ([id number]) bladder tumor, TUR with diagnosis of papillary urothelial carcinoma and ([id number]) urine for cytology with diagnosis of rare atypical urothelial cells are present. MICROSCOPIC DESCRIPTION Slides are reviewed. GROSS DESCRIPTION Received in fixative is one container labeled with the patient's name and designated bladder tumor. The specimen consists of a single torrez-pink fragment of soft tissue measuring 0.4 x 0.2 x 0.2 cm. The specimen is totally submitted in one cassette. / CE:lorenzo 07/01/18 TC:3 CPT: 10702
[2018-06-30] MEDS: Cefazolin 2 GM in 0.9% Normal Saline 100 ML IV (14:09)
[2018-06-30] MEDS: Lubricating Jelly 60 GM Tube 30 GM TOPICAL (14:28)
--- NOTE | 2018-06-30 14:44 | DCINST_ITS ---
Discharge Diet: Light diet - advance as tolerated Discharge Activity: Return to Normal Activity Suture Line Care: Avoid Pulling/Pushing, Avoid Pinching/Bending Instructions: Treating Bladder Cancer: TUR (Transurethral Resection) Allergies/Adverse Reactions: Allergies No Known Allergies Allergy (Verified 06/23/18 11:03) Medications to take at Discharge Albuterol Inhaler [Ventolin Hfa] 1 - 2 puff INHALATION Q4H PRN PRN 12/04/15 Aspirin E.C. [Ecotrin] 81 mg PO DAILY@0800 12/04/15 Sertraline HCl [Zoloft] 50 mg PO DAILY 12/04/15 isosorbide mononitrate ER 60 mg tablet,extended release 24 hr 60 mg PO DAILY #90 tab 10/27/17 metoprolol tartrate 25 mg tablet 12.5 mg PO BID #90 tab 10/27/17 omeprazole 20 mg capsule,delayed release 20 mg PO BID #180 cap 10/27/17 pravastatin 40 mg tablet 40 mg PO DAILY #90 tab 10/27/17 hydrochlorothiazide 25 mg tablet 25 mg PO QDAY #90 tab 04/14/18 losartan 50 mg tablet 50 mg PO BID #180 tab 05/31/18 Amlodipine Besylate [Norvasc] 5 mg PO BID 06/23/18 Umeclidinium Brm/Vilanterol Tr [Anoro Ellipta 62.5-25 Mcg INH] 1 each IH DAILY 06/23/18 Primary Care Physician: Rosana Douglass DO [Primary Care Provider] - Test Results: Test results from this visit will be discussed in further detail at your follow- up appointment, if applicable. Please Follow Up With: Yandel Murrieta MD When: in 2 weeks, please call to make an appointment.
--- NOTE | 2018-06-30 14:46 | PCM.OPRPT ---
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 77-year-old male taken back to the operating room at the smooth induction of anesthesia he is placed in dorsolithotomy position within the bladder with a 24 Green[place] noncontinuous flow resectoscope I found a reddish flat lesion in the dome of the bladder tumor together could see this under white light and blue light cystoscopy. The area was then resected was not a deep resection into the muscle just the superficial lamina propria was not invasive looking after resecting this area and then cauterize it specimen was handed off cauterized and got good hemostasis the rest of the bladder looked okay the trigone looked okay left and right orifice were open the bladder neck was wide open a prior TURP. I then drained the bladder with a catheter in the bladder with instillation of 40 cc of mitomycin-C into the bladder the patient anesthetic was reversed taken back to PACU good condition see him in 2 weeks to review the official report. Type of Anesthesia:: General Drains: none - Admit VTE Documentation VTE Present on Admission: No VTE Mechan Device Prophylaxis: SCD's
[2018-06-30 14:50] VITALS: BP 112/71; BP 142/86; PULSE 88; RESP 16; TEMP 36.5; O2SAT 95
[2018-06-30 15:00] VITALS: BP 107/57; BP 142/86; PULSE 60; RESP 16; O2SAT 92
[2018-06-30 15:15] VITALS: BP 142/86; BP 96/61; PULSE 60; RESP 16; O2SAT 100
[2018-06-30 15:25] VITALS: BP 104/60; BP 142/86; PULSE 60; RESP 16; TEMP 36.3; O2SAT 98
[2018-06-30 16:30] VITALS: BP 139/65; BP 142/86; PULSE 52; RESP 16; TEMP 37; O2SAT 92
== END 2018-06-30 17:25 | disposition home or self-care (01) ==
LOC: SDC 11:53 → AC 11:53
PROVIDERS: Anesthesiology; Family Provider Internal Medicine; PCP Internal Medicine; Referring Provider Urology; Visit Provider Urology
PROC: 0TBB8ZZ Excision of Bladder, Via Natural or Artificial Opening Endoscopic (ICD-10-PCS; CPT 51720; principal; 2018-06-30 13:20)
DX: D49.4 Neoplasm of unspecified behavior of bladder (principal); I10 Essential (primary) hypertension; N40.1 Benign prostatic hyperplasia with lower urinary tract symptoms; J44.9 Chronic obstructive pulmonary disease, unspecified; K21.9 Gastro-esophageal reflux disease without esophagitis; E78.5 Hyperlipidemia, unspecified; F32.9 Major depressive disorder, single episode, unspecified; E78.00 Pure hypercholesterolemia, unspecified; Z85.51 Personal history of malignant neoplasm of bladder; Z87.442 Personal history of urinary calculi; Z87.891 Personal history of nicotine dependence; Z95.1 Presence of aortocoronary bypass graft; Z85.118 Personal history of other malignant neoplasm of bronchus and lung
CPT/HCPCS: 00912; 51720; 52235; 80048; 85027; 88307; 88341; 88342; 93005; J7120; J2405; J3490; J9280

== ENCOUNTER → 2018-07-15 16:58 | Outpatient (CLI) | payer MEDICARE, OTHER, SELFPAY ==
[2018-06-30 12:10] VITALS: BMI 30.4
== END ==
PROVIDERS: Family Provider Internal Medicine; PCP Internal Medicine; Referring Provider Urology; Visit Provider Urology
DX: R35.0 Frequency of micturition (principal)
CPT/HCPCS: 87086

== ENCOUNTER → 2018-08-24 08:53 | Outpatient (CLI) | payer MEDICARE, OTHER, SELFPAY | PROVIDERS: Family Provider Internal Medicine; PCP Internal Medicine; Referring Provider Urology; Visit Provider Urology | DX: R30.0 Dysuria (principal) | CPT/HCPCS: 87086 ==

== ENCOUNTER → 2018-09-16 15:18 | Outpatient (CLI) | payer MEDICARE, OTHER, SELFPAY ==
[2018-09-16 11:02] VITALS: BMI 30.2
[2018-09-16 16:29] LABS: AST(SGOT) 15 U/L (15-37); Alanine Aminotransfer ALT/SGPT 19 U/L (16-61); Albumin, Serum 3.6 g/dL (3.2-5.0); Alkaline Phosphatase 69 U/L (45-117); Bilirubin, Direct 0.14 mg/dL (0.00-0.30); Cholesterol 121 mg/dL (200); Globulin 3.4 g/dL (2.2-4.2); High Density Lipoprotein 43 mg/dL; Triglycerides 264 mg/dL; Very Low Density Lipoprotein 53 mg/dL (5-40)
[2018-09-16 16:34] LABS: BNP,B-Type NATRIURETIC PEPTIDE 107.7 pg/mL (0-100)
== END ==
PROVIDERS: Family Provider Internal Medicine; PCP Internal Medicine; Referring Provider Internal Medicine Cardiovascular Disease; Visit Provider Internal Medicine Cardiovascular Disease
DX: I10 Essential (primary) hypertension (principal); I25.10 Atherosclerotic heart disease of native coronary artery without angina pectoris; E78.5 Hyperlipidemia, unspecified; J44.9 Chronic obstructive pulmonary disease, unspecified; Z95.1 Presence of aortocoronary bypass graft
CPT/HCPCS: 36415; 80061; 80076; 83880

== ENCOUNTER 2019-03-25 09:48 | Day surgery (SDC) | payer MEDICARE, OTHER, SELFPAY ==
[2018-09-16 11:02] VITALS: BMI 30.2
--- NOTE | 2019-03-25 09:56 | RAD_ITS ---
STUDY: X-RAY - ABDOMEN/PELVIS REASON FOR EXAM: Male, 78 years old. PRE OP FOR ESWL, STENT INSERTION LEFT TODAY; -- H/O STONES TECHNIQUE: Single AP view of the abdomen / pelvis. COMPARISON: Comparison is made with prior study dated December 12, 2016. FINDINGS: Small left pleural effusion with left basilar atelectasis. There is an unremarkable bowel gas pattern. There is a 7.2 mm calculus in the lower pole calyx of the left kidney. Normal soft tissue structures. There are diffuse degenerative changes of the visualized lumbar spine. RAD/Abdomen Single View IMPRESSION: 7.2 mm calculus in the lower pole calyx of the left kidney. Electronically Signed: Jake Bazzi, at 10:53 EST , Service support ,
[2019-03-25 10:37] VITALS: BP 133/72; PULSE 93; RESP 16; TEMP 36.8; O2SAT 93; BMI 30.4
[2019-03-25] MEDS: Lactated Ringers 1,000 ML 100 ML IV (10:44)
--- NOTE | 2019-03-25 11:01 | PCM.DC.URO ---
Discharge Diet: Light diet - advance as tolerated Discharge Activity: Return to Normal Activity Call your doctor if your incision/area has: Continuous Slow Oozing, Sudden Increased Bleeding Call your doctor if you observe: Fever of 101 or Higher, Uncontrolled pain Suture Line Care: Avoid Pulling/Pushing, Avoid Pinching/Bending Instructions: Shock Wave Lithotripsy Allergies/Adverse Reactions: Allergies No Known Allergies Allergy (Verified 03/25/19 10:35) Medications to take at Discharge Albuterol Inhaler [Ventolin Hfa] 1 - 2 puff INHALATION Q4H PRN PRN 12/04/15 Aspirin E.C. [Ecotrin] 81 mg PO DAILY@0800 12/04/15 Sertraline HCl [Zoloft] 50 mg PO DAILY 12/04/15 losartan 50 mg tablet 50 mg PO BID #180 tab 05/31/18 Umeclidinium Brm/Vilanterol Tr [Anoro Ellipta 62.5-25 Mcg INH] 1 ea IH DAILY 06/23/18 Ibuprofen 600 mg PO Q6H PRN PRN #14 tab 06/30/18 tamsulosin 0.4 mg capsule 0.4 mg PO DAILY #30 cap 09/16/18 isosorbide mononitrate 60 mg tablet,extended release 24 hr 60 mg PO DAILY #90 tab 10/05/18 omeprazole 20 mg capsule,delayed release 20 mg PO DAILY #180 cap 10/05/18 pravastatin 40 mg tablet 40 mg PO DAILY #90 tab 10/05/18 amlodipine 10 mg tablet 5 mg PO BID #180 tab 11/03/18 metoprolol tartrate 25 mg tablet 12.5 mg PO BID #90 tab 11/03/18 hydrochlorothiazide 25 mg tablet 25 mg PO DAILY #90 tab 03/21/19 Hydrocodone Bitart/Apap 5-325 [[place] 5MG-325MG] 1 tablet PO Q4H PRN PRN 5 Days #14 tablet 03/25/19 The following prescriptions were given: Hydrocodone Bitart/Apap 5-325 [[place] 5MG-325MG] 1 tablet PO Q4H PRN PRN 5 Days #14 tablet PRN Reason: Pain Transmission Status: Sent to [facility] [place] [facility] Orders to be completed after discharge: Abdomen Single View [RAD] Time Frame: 03/25/19, Facility: [facility], Location: Radiology, [facility] [place] Primary Care Physician: Rosana Douglass DO [Primary Care Provider] - Test Results: Test results from this visit will be discussed in further detail at your follow-up appointment, if applicable. Please Follow Up With: Yandel Murrieta MD When: please call to make an appointment.
[2019-03-25] MEDS: Cefazolin 2 GM in 0.9% Normal Saline 100 ML IV (11:07)
--- NOTE | 2019-03-25 12:01 | PCM.OPRPT ---
Report of Operation Date of Procedure: 03/25/19 Pre-Operative Diagnosis: Left lower pole kidney stone 9 mm Post-Operative Diagnosis: Same Surgery/Procedure Performed:: Left extracorporeal shockwave lithotripsy Description of Surgical Findings:: 78-year-old male taken back to the operating room after smooth induction of general anesthesia he was placed in dorsolithotomy position. After smooth induction of anesthesia he was placed supine on the table we located the stone in the lower pole of the left kidney we then placed the lithotripter to position the shockwave therapy had underneath the left kidney. We found the stone under fluoroscopy using triangulation technique we put the stone the F2 focal point of the lithotripter machine once a stone was located in the lithotripter machine we then started doing shockwave lithotripsy at a slow rate of 90/min raising her power from 1 kV up to a total of 7 kV. We monitored the fragmentation during the entire treatment cycle. He received a total of 3000 shockwaves which is the limit of our treatment to the stone the stone to change significantly with lots of broken fragments at the end of the treatment we could still see the broken fragments with a change quite a bit. Decided not to place a stent and at this point patient was extubated taken back to PACU good condition and will follow-up in a few weeks and x-ray. Type of Anesthesia:: General Drains: none - Admit VTE Documentation VTE Present on Admission: No VTE Mechan Device Prophylaxis: SCD's
[2019-03-25 12:06] VITALS: BP 110/70; BP 133/72; PULSE 66; RESP 18; TEMP 36.5; O2SAT 95
[2019-03-25] MEDS: Ketorolac 15 MG/ML Vial IV (12:12)
[2019-03-25 12:15] VITALS: BP 122/71; BP 133/72; PULSE 63; RESP 16; O2SAT 96
[2019-03-25 12:27] VITALS: BP 125/68; BP 133/72; PULSE 57; RESP 18; TEMP 36.2; O2SAT 97
[2019-03-25 14:15] VITALS: BP 123/66; BP 133/72; PULSE 60; RESP 16; TEMP 36.2; O2SAT 93
== END 2019-03-25 14:15 | disposition home or self-care (01) ==
LOC: SDC 09:53 → AC 10:11
PROVIDERS: PCP Internal Medicine; Referring Provider Urology; Visit Provider Urology
PROC: (CPT 50590; principal; 2019-03-25 12:00)
DX: N20.0 Calculus of kidney (principal); C67.8 Malignant neoplasm of overlapping sites of bladder; N40.1 Benign prostatic hyperplasia with lower urinary tract symptoms; J44.9 Chronic obstructive pulmonary disease, unspecified; K21.9 Gastro-esophageal reflux disease without esophagitis; I11.9 Hypertensive heart disease without heart failure; E78.5 Hyperlipidemia, unspecified; F32.9 Major depressive disorder, single episode, unspecified; I25.10 Atherosclerotic heart disease of native coronary artery without angina pectoris; Z87.891 Personal history of nicotine dependence; Z85.118 Personal history of other malignant neoplasm of bronchus and lung; Z85.828 Personal history of other malignant neoplasm of skin; Z95.1 Presence of aortocoronary bypass graft; Z79.82 Long term (current) use of aspirin; Z79.899 Other long term (current) drug therapy; Z87.442 Personal history of urinary calculi; Z79.51 Long term (current) use of inhaled steroids
CPT/HCPCS: 00873; 50590; 74018; J7120; J2405

== ENCOUNTER → 2019-04-21 | Outpatient (CLI) | payer MEDICARE, OTHER, SELFPAY ==
[2019-03-25 10:37] VITALS: BMI 30.4
--- NOTE | 2019-04-21 08:40 | RAD_ITS ---
STUDY: X-RAY - ABDOMEN/PELVIS REASON FOR EXAM: Male, 78 years old. RECENT STONE REMOVAL, NO CURRENT COMPLAINTS TECHNIQUE: Two AP supine views of the abdomen and pelvis. COMPARISON: Previous study of 03/25/2019 FINDINGS: There is left costophrenic angle blunting. There is an unremarkable bowel gas pattern. There is no demonstrated free abdominal air. The visualized liver, spleen and kidneys are grossly normal in size and morphology. Normal soft tissue structures. There are degenerative changes of the visualized thoracolumbar spine. RAD/Abdomen Single View IMPRESSION: Left costophrenic angle blunting which may represent small effusion. A previously noted 7 mm calcification of the left abdomen is not seen at this time. Degenerative changes of the visualized thoracolumbar spine. Electronically Signed: Jevon Back MD at 19:35 EST , Service support ,
== END | disposition home or self-care (01) ==
LOC: RAD 08:36
PROVIDERS: PCP Internal Medicine; Referring Provider Urology; Visit Provider Urology
DX: N20.0 Calculus of kidney (principal)
CPT/HCPCS: 74018

== ENCOUNTER → 2019-09-21 | Outpatient (CLI) | payer MEDICARE, OTHER, SELFPAY ==
[2019-09-21 09:01] LABS: AST(SGOT) 12 U/L (15-37); Alanine Aminotransfer ALT/SGPT 16 U/L (16-61); Albumin, Serum 3.8 g/dL (3.2-5.0); Alkaline Phosphatase 66 U/L (45-117); Bilirubin, Direct 0.21 mg/dL (0.00-0.30); Cholesterol 138 mg/dL (200); Globulin 3.4 g/dL (2.2-4.2); High Density Lipoprotein 43 mg/dL; Protein, Total 7.2 g/dL (6.4-8.2); Triglycerides 83 mg/dL; Very Low Density Lipoprotein 17 mg/dL (5-40)
== END | disposition home or self-care (01) ==
LOC: LAB 07:43
PROVIDERS: PCP Internal Medicine; Referring Provider Internal Medicine Cardiovascular Disease; Visit Provider Internal Medicine Cardiovascular Disease
DX: E78.5 Hyperlipidemia, unspecified (principal); I25.10 Atherosclerotic heart disease of native coronary artery without angina pectoris
CPT/HCPCS: 36415; 80061; 80076

== ENCOUNTER → 2019-09-22 | Outpatient (CLI) | payer MEDICARE, OTHER, SELFPAY ==
[2019-09-22 09:10] VITALS: BMI 30.2
[2019-09-22 10:31] LABS: BNP,B-Type NATRIURETIC PEPTIDE 114.3 pg/mL (0-100)
== END | disposition home or self-care (01) ==
LOC: LAB 09:39
PROVIDERS: PCP Internal Medicine; Referring Provider Internal Medicine Cardiovascular Disease; Visit Provider Internal Medicine Cardiovascular Disease
DX: R06.00 Dyspnea, unspecified (principal)
CPT/HCPCS: 36415; 83880

== ENCOUNTER → 2019-10-13 | Outpatient (CLI) | payer MEDICARE, OTHER, SELFPAY ==
[2019-09-22 09:10] VITALS: BMI 30.2
--- NOTE | 2019-10-13 08:42 | ECHOD_ITS ---
Reason For Study: Dyspnea/SOB Procedure This was a 2D Doppler, Color Flow transthoracic echocardiogram. Myocardial strain analysis was performed in this exam to aid in the assessment of cardiac function. Exam performed in department. Left Ventricle Normal LV size. The estimated ejection fraction is 55 %. Stage 1 diastolic dysfunction. No regional wall motion abnormalities noted. Right Ventricle Normal RV size. Normal systolic function. Atria The left atrium is mildly enlarged. Normal right atrium. Mitral Valve Normal mitral valve. Tricuspid Valve Normal tricuspid valve. Mild to moderate (1-2+) tricuspid valve insufficiency. Pulmonary artery systolic pressure is 57 mmHg. Moderate pulmonary hypertension. Aortic Valve Trisinus/trileaflet aortic valve. Mild focal aortic valve calcification. Pulmonic Valve The pulmonic valve is not well visualized. Great Vessels Normal aortic root. The pulmonary artery is normal size. Normal inferior vena cava. Pericardium/Pleural No pericardial effusion. MMode/2D Measurements & Calculations LVIDd: 5.8 cm IVSd: 1.0 cm Ao root diam: 3.3 cm LVIDs: 3.7 cm LVPWd: 0.97 cm RVDd: 4.5 cm FS: 36.8 % LAV(MOD-bp): 72.4 ml LA A4 area: 24.9 cm2 LA dimension(2D): 5.8 cm LAV(MOD-bp) Indexed: 34.1 ml/m2 LAV(MOD-sp2): 53.9 ml LAV(MOD-sp4): 79.0 ml RA A4 area: 20.3 cm2 Doppler Measurements & Calculations MV E max dick: 60.8 cm/sec Lat Peak E' Dick: 10.6 cm/sec Med Peak E' Dick: 5.0 cm/sec MV A max dick: 77.0 cm/sec E/E' lat: 5.7 E/E' med: 12.2 MV E/A: 0.79 Ao V2 max: 157.8 cm/sec LV V1 max: 105.1 cm/sec PA V2 max: 100.4 cm/sec Ao max P.0 mmHg LV V1 max P.4 mmHg Ao V2 mean: 100.5 cm/sec Ao mean P.5 mmHg Ao V2 VTI: 32.6 cm TR max dick: 365.0 cm/sec TR max P.3 mmHg Interpretation Summary Normal LV size. The estimated ejection fraction is 55 %. Stage 1 diastolic dysfunction. The left atrium is mildly enlarged. Pulmonary artery systolic pressure is 57 mmHg. Moderate pulmonary hypertension. Ordering Physician: Butch Viera Referring Physician: Rosana Douglass Performed By: Karen Robert RVT, RDCS and Student
== END | disposition home or self-care (01) ==
LOC: CVS 08:42
PROVIDERS: PCP Internal Medicine; Referring Provider Internal Medicine Cardiovascular Disease; Visit Provider Internal Medicine Cardiovascular Disease
DX: R06.00 Dyspnea, unspecified (principal); R06.02 Shortness of breath
CPT/HCPCS: 93306

== ENCOUNTER 2019-12-23 10:29 | Inpatient (IN) | payer MEDICARE, OTHER, SELFPAY ==
[2019-09-22 09:10] VITALS: BMI 30.2
[2019-12-23] VITALS (20 sets, daily range): BP systolic 95–131; BP diastolic 51–89; PULSE 89–118; RESP 12–24; TEMP 36.1–37.2; O2SAT 84–98; BMI 29.2; BMI 29.3; BMI 29.9
--- NOTE | 2019-12-23 10:54 | EKG12_ITS ---
Test Reason : Blood Pressure : / mmHG Vent. Rate : 115 BPM Atrial Rate : 230 BPM P-R Int : 000 ms QRS Dur : 118 ms QT Int : 356 ms P-R-T Axes : -37 266 115 degrees QTc Int : 492 ms Atrial flutter with 2:1 A-V conduction Right superior axis deviation Pulmonary disease pattern Inferior infarct , age undetermined Abnormal ECG Confirmed by MATTHEW GARCIA, JOANNE ([id number]), legal editor GABRIELLA IBARRA ([id number]) on 12/27/2019 11:11:30 AM Referred By: LUIS Confirmed By:JOANNE CASTRO MD
[2019-12-23] MEDS: 0.9% Normal Saline 1,000 ML 999 ML IV (11:14)
[2019-12-23 11:33] LABS: Absolute Lymphocyte Count 0.99 X10^3/uL (0.83-4.51); Absolute Neutrophil Count 3.5 X10^3/uL (2.0-7.7); Basophil# 0.02 X10^3/uL; Basophil% 0.4 % (0-1); Hematocrit 42.8 % (40-54); Hemoglobin 13.6 g/dL (13.0-16.5); Lymphocyte # 0.99 X10^3/ul (4.0); Lymphocyte % 19.4 % (19-41); Mean Corp Hgb Conc 31.8 g/dL (32-36); Mean Corpuscular Hgb 30.8 pg (27.0-32.0); Mean Corpuscular Volume 96.8 fL (80-94); Mean Platelet Vol. 10.1 fl (6.2-12.0); Monocyte# 0.57 X10^3/uL; Monocyte% 11.2 % (0-10); NRBC Flagged by Analyzer 0 % (0-5); Neutrophil # 3.49 X10^3/uL (2.7-7.7); Neutrophil % 68.6 % (47-70); POSITIVE COUNT YES; POSITIVE MORPHOLOGY YES; Platelet Count 98 K/mm3 (150-450); RBC Distribution Width CV 13.4 % (11.6-14.6); RBC Distribution Width SD 48.3 fl (35.1-43.9); Red Blood Count 4.42 M/mm3 (4.6-6.2); White Blood Count 5.1 K/mm3 (4.4-11.0)
[2019-12-23 11:47] LABS: ALB/GLOB Ratio 0.9 RATIO (0.9-2.4); AST(SGOT) 21 U/L (15-37); Alanine Aminotransfer ALT/SGPT 15 U/L (16-61); Albumin, Serum 3.2 g/dL (3.2-5.0); Alkaline Phosphatase 58 U/L (45-117); Anion Gap 9 (5-15); BUN 45 mg/dL (7-18); BUN/Creat Ratio 23.3 RATIO (10-20); Calcium,Total 9.1 mg/dL (8.5-10.1); Chloride 103 mmol/L (98-107); Creatinine, Serum 1.93 mg/dL (0.70-1.30); EST Glomerular Filtration Rate 36 mL/min (>60); Est Glom Filt Rate - Afr Amer 44 mL/min (>60); Estimated Creatinine Clearance 32.57 ml/min; Globulin 3.6 g/dL (2.2-4.2); Glucose 116 mg/dL (74-106); Potassium 3.8 mmol/L (3.5-5.1); Protein, Total 6.8 g/dL (6.4-8.2); Sodium Level 138 mmol/L (136-145)
--- NOTE | 2019-12-23 11:47 | ED.VIS.GEN ---
History of Present Illness Chief Complaint: Fever Detail of Chief Complaint: Onset of illness 1 week ago. Patient had increased shortness of breath. Informant: Patient Onset: Days Context: Sudden Onset Timing: Continuous Quality: Dyspnea, cough, fever and chills Location: Respiratory and generalized Current Severity: Moderate Maximum Severity: Severe Worsened by: Activity Relieved by: Nothing Associated Symptoms: No other symptoms, denies COVID-19 exposure Narrative: Patient is a elderly male diagnosed with cancer 15 years ago who presents with upper respiratory symptoms. He denies exposure to COVID-19. He does report cough, shortness of breath, fever and chills. He denies myalgias or arthralgias. Denies GI symptoms. He denies symptoms. Prior similar symptoms: No Recent Illness/Hospitalization: No - Past Medical History (1) Atherosclerotic heart disease of [place] coronary artery without angina pectoris Status: Chronic Comment: (2) Bladder cancer Status: Chronic (3) Essential (primary) hypertension Status: Chronic (4) GERD with esophagitis Status: Chronic (5) HLD (hyperlipidemia) Status: Chronic (6) Lung cancer Status: Chronic Comment: left lower lobe lobectomy without radiation (7) Secondary pulmonary arterial hypertension Status: Chronic Past Medical History - Allergies and Home Meds Allergies/Adverse Reactions: Allergies No Known Allergies Allergy (Verified 12/23/19 10:30) Primary Care Physician: Rosana Douglass DO [Primary Care Provider] - Prior records reviewed: Yes Surgical History: coronary bypass surgery, - - lower lobe lobectomy due to malignant Lives: Alone Smoking Status: Former smoker Alcohol: None Drugs: None - Family History Paternal Family History: Family History (Last Reviewed 09/22/19 @ 09:[address] Butch Viera MD) Mother Cancer Brother Diabetes Family History: Reports: Heart Disease Review of Systems General: Reports: Chills, Fever, Malaise, Sweats Eyes: Denies: Visual changes - bilaterally, Blurred Vision - bilaterally, Diplopia ENT: Denies: Bilateral ear pain, Rhinorrhea, Sore throat Cardiovascular: Reports: Heart racing. Denies: Chest pain, Palpitations Respiratory: Reports: Dyspnea, Cough, Dyspnea on exertion. Denies: Orthopnea, Paroxysmal nocturnal dyspnea Gastrointestinal: Reports: Nausea. Denies: Abdominal pain, Vomiting, Diarrhea, Constipation, Melena, Hematochezia Genitourinary: Denies: Dysuria, Hematuria, Frequency Musculoskeletal: Reports: Myalgias. Denies: Arthralgias, Neck pain, Back pain Skin: Denies: Rash, Wounds Neurological: Reports: Weakness. Denies: Headache, Parasthesia Endocrine: Denies: Polyuria, Polydipsia Hematologic: Denies: Easy bruising, Easy bleeding Physical Exam Vital Signs/Narrative: Vital Signs Temp Pulse Resp BP Pulse Ox 12/23/19 11:24 88 12/23/19 10:51 97.7 F L 116 H 22 H 107/68 85 12/23/19 10:30 97.7 F L 118 H 24 H 95/51 L Inital Vital Signs reviewed: Yes General: Well nourished, Well developed, Acute Distress Head: Negative for: Normocephalic, Atraumatic Eyes: Perrl, EOMI. Negative for: Pale conjunctiva, Scleral icterus ENT: No rhinorrhea, TM's clear, - - Minutes of central cyanosis. Neck: Supple, Nontender, No lymphadenopathy, No JVD Cardiovascular: Regular rhythm, No murmurs, Normal S1, Normal S2, Tachycardia Respiratory: Chest nontender, Decreased Air Movement. Negative for: No distress, CTA bilaterally Abdomen: Soft, Nontender, Nondistended, Normal bowel sounds Rectal: Deferred Back: Nontender, Normal Inspection Extremities: Nontender, No edema. Negative for: Tenderness, Edema Skin: No rash, Cyanosis, Diaphoresis, Jaundice, No Trauma. Negative for: Normal color Neurological: Alert, Oriented x3, Cranial nerves II-XII grossly intact, Normal Strength, Normal Sensation Psychological: Normal affect, Normal Mood Diagnostic/Tx/Re-eval Chest X-Ray - ED: 1 View, Read by ED Physician, Heart, Bony Structures, Right Infiltrate, Left Infiltrate 12/23/19 10:55 Chest 1 View (Portable) [RAD] Stat Laboratory Results 12/23/19 12/23/19 12/23/19 11:05 11:05 11:05 WBC 5.1 RBC 4.42 L Hgb 13.6 Hct 42.8 MCV 96.8 H MCH 30.8 MCHC 31.8 L RDW Std Deviation 48.3 H RDW Coeff of Jamar 13.4 Plt Count 98 L MPV 10.1 Immature Gran % (Auto) 0.400 Neut % (Auto) 68.6 Lymph % (Auto) 19.4 [place] % (Auto) 11.2 H Eos % (Auto) 0.0 Baso % (Auto) 0.4 Absolute Neuts (auto) 3.5 Absolute Lymphs (auto) 0.99 Nucleated RBC % 0 Differential Comment Platelet Estimate SLT DEC RBC Morphology NORM C+C PT 13.0 INR 1.0 APTT 36.9 H Specimen Type Sample Site pH Bicarbonate Actual Total CO2 Base Excess O2 Saturation O2 % ABG pCO2 ABG pO2 Michael Test O2 Delivery Device Sodium 138 Potassium 3.8 Chloride 103 Carbon Dioxide 26.0 Anion Gap 9 BUN 45 H Creatinine 1.93 H Estim Creat Clear Calc 32.57 Est GFR (MDRD) Af Amer 44 L Est GFR (MDRD) Non-Af 36 L BUN/Creatinine Ratio 23.3 H Glucose 116 H Lactic Acid Calcium 9.1 Total Bilirubin 0.80 AST 21 ALT 15 L Alkaline Phosphatase 58 Total Protein 6.8 Albumin 3.2 Globulin 3.6 Albumin/Globulin Ratio 0.9 12/23/19 12/23/19 11:05 11:42 WBC RBC Hgb Hct MCV MCH MCHC RDW Std Deviation RDW Coeff of Jamar Plt Count MPV Immature Gran % (Auto) Neut % (Auto) Lymph % (Auto) [place] % (Auto) Eos % (Auto) Baso % (Auto) Absolute Neuts (auto) Absolute Lymphs (auto) Nucleated RBC % Differential Comment Platelet Estimate RBC Morphology PT INR APTT Specimen Type ART Sample Site L Radial pH 7.35 Bicarbonate Actual 23.4 Total CO2 25 Base Excess -2 O2 Saturation 81 L O2 % 50 ABG pCO2 42.2 ABG pO2 47 L Michael Test Positive O2 Delivery Device Venti Mask Sodium Potassium Chloride Carbon Dioxide Anion Gap BUN Creatinine Estim Creat Clear Calc Est GFR (MDRD) Af Amer Est GFR (MDRD) Non-Af BUN/Creatinine Ratio Glucose Lactic Acid 1.8 Calcium Total Bilirubin AST ALT Alkaline Phosphatase Total Protein Albumin Globulin Albumin/Globulin Ratio - Medical Decision Making Patient is hypotensive. His systolic is greater 90 his mean arterial is not below 65. He did receive a bolus of 1 L. Concern patient has pneumonia versus Covid. Since he denies exposure he was treated with antibiotics that will cover community-acquired pneumonia. Patient remained cyanotic on 4 to 6 L by nasal cannula. He was placed on 50% Venturi mask. He remained cyanotic and a blood gas was obtained to confirm that he is hypoxic and it does. He is presently on a percent nonrebreather mask. Patient chest x-ray reveals bilateral infiltrates. This may represent community-acquired versus Covid. His saturation is 98-99% on nonrebreather mask. Hospitalist was paged for admission. Patient has multiple sirs criteria. His creatinine is elevated 1.93. This is a new finding from prior. - Critical Care Time Critical care time (excluding procedures): 30-74 minutes - Critical care care time 37 minutes. This included obtaining history, physical examination, documentation, interpretation of lab results and initiation of care., Discussing w/Patient &/or Family/Elevator Runner, Discussing w/Consultants, Arranging Admission or Transfer ED Disposition - Plan for ED Patient: Disposition: Acute Care Hospital [facility] Diagnosis: Acute respiratory failure with hypoxia, Bilateral pneumonia, Sepsis, Elevated serum creatinine Referrals: Rosana Douglass DO [Primary Care Provider] -
[2019-12-23 11:50] LABS: Allen Test Positive; Base Excess -2 mmol/L (-2 to +2); Bicarbonate 23.4 mmol/L (22-26); Blood Gas Specimen Type ART; FI02 50; O2 Delivery Device Venti Mask; PO2 47 mmHG (75-100); SITE L Radial; SO2 81 % (95-99); Total Carbon Dioxide 25 mmol/L; pCO2 42.2 mmHg (35-45); pH 7.35 (7.35-7.45)
[2019-12-23 12:06] LABS: Lactic Acid 1.8 mmol/L (0.4-1.9)
[2019-12-23 12:07] LABS: Differential Indicated SCAN CRITERIA MET; Partial Thromboplast Time 36.9 Seconds (24.1-36.2)
[2019-12-23 12:11] LABS: Platelet Estimate SLT DEC (ADEQ); Red Cell Morphology NORM C+C NORMAL (NORM C&C)
--- NOTE | 2019-12-23 12:20 | RAD_ITS ---
STUDY: X-RAY CHEST REASON FOR EXAM: Male, 79 years old. FEVER TECHNIQUE: Single AP portable view of the chest. COMPARISON: Comparison is made with prior examination dated 12/14/2017. FINDINGS: EKG electrodes are seen. There now is evidence of a wedge-shaped consolidation in the peripheral aspect of the right mid lung. There is also evidence of blunting of both costophrenic angles as well as mild infiltrate at the lung bases. Sternal cerclage wires and vascular clips are present from a prior sternotomy and coronary artery bypass graft procedure (CABG). Normal mediastinum and babak. Normal visualized pulmonary arteries. There is atherosclerotic calcification of the aortic arch with tortuosity. There are degenerative changes of the visualized thoracic spine. Normal visualized ribs, clavicles, and shoulders. There is no demonstrated abnormality of the visualized soft tissue structures of the upper abdomen. RAD/Chest 1 View (Portable) IMPRESSION: New wedge-shaped peripheral consolidation in the right midlung with mild increased markings at the lung bases and blunting of both costophrenic angles. Pneumonitis associated with Covid 19 should be ruled out. Electronically Signed: Jake Bazzi, at 12:43 EDT , Service support ,
[2019-12-23 12:43] LABS: Mucous, Urine 0 SEEN /hpf (<or=2+); Red Blood Cells-Urine 0 SEEN /hpf (0-5); Squamous Epithelial Cells - UA 0 SEEN /hpf (0-5); White Blood Cells 0 SEEN /hpf (0-5)
[2019-12-23 12:48] LABS: Color, Urine Yellow (Yellow); Glucose, Dipstick Normal (Normal); Ketone-Dipstick 5 mg/dl (Negative); Leukocyte Esterase-Dipstick Negative /ul (Negative); Nitrite-Dipstick Negative (Negative); Occult Blood-Urine Negative /ul (Negative); Protein-Dipstick 15 mg/dl (Negative); Urine Bilirubin Dipstick Negative (Negative); Urine Clarity Clear (Clear); Urine Urobilinogen Normal (Normal)
[2019-12-23 12:55] LABS: Bacteria 1+ /hpf (None Seen); Hyaline Cast 0-5 SEEN /lpf (0-5)
--- NOTE | 2019-12-23 13:14 | NURSING ---
ICU JOPPERI ACUTE RESP FAILURE WITH HYPOXIA, BERNARD PNEUMONIA
--- NOTE | 2019-12-23 14:04 | NURSING ---
ICU 5
--- NOTE | 2019-12-23 14:45 | NURSING ---
When RN went to hang pt's Ceftriaxone, noticed that a second bag of Zithromax was hung. Second bag of Zithromax was not to be hung. The infusion was stopped immediately. Measured the amount left in bag. There was 150ml left in bag, therefore pt had 100ml infused into him. Notified DR. Franco and Dr. Paulino. No new orders given.
--- NOTE | 2019-12-23 16:22 | PCM.HP.STD ---
Problem List (1) COVID-19 Status: Acute (2) Acute respiratory failure with hypoxia Status: Acute (3) Bilateral pneumonia Status: Acute (4) Sepsis Status: Acute (5) Elevated serum creatinine Status: Acute (6) GERD with esophagitis Status: Chronic (7) Atherosclerotic heart disease of [place] coronary artery without angina pectoris Status: Chronic Qualifiers: Circle vs. transplanted heart: [place] heart Qualified Code(s): I25.10 - Atherosclerotic heart disease of [place] coronary artery without angina pectoris; I25.10 - Atherosclerotic heart disease of [place] coronary artery without angina pectoris; I25.10 - Atherosclerotic heart disease of [place] coronary artery without angina pectoris Comment: (8) H/O coronary artery bypass surgery Status: Resolved Comment: CABG x6: Sequential JUAREZ-Ramus and D1, BUD to LAD, SVG -D2, Sequential SVG-PDA and LCx 07/20/2003 (9) Secondary pulmonary arterial hypertension Status: Chronic (10) Essential (primary) hypertension Status: Chronic (11) HLD (hyperlipidemia) Status: Chronic (12) Bladder cancer Status: Chronic (13) Lung cancer Status: Chronic Comment: left lower lobe lobectomy without radiation History of Present Illness Date of Admission: 12/23/19 Chief Complaint: weakness The patient is a 79 year old M states that over the past week he has just been weak and progressively short of breath. Presented to the emergency room chest x-ray that showed bilateral pneumonia. I was informed that the patient had no Covid risk factors but he was put on nasal cannula but had to be increased on nonrebreather. Patient was breathing comfortably so patient was changed back to nasal cannula when he dropped down into the 80s and sustained there put on 50% Ventimask and was stable at around 96% with good waveforms. After I seen him, patient was put on a BiPAP in the emergency room while he was awaiting his COVID-19 test which did come back positive. Patient was unable to relate any contacts stating that he has not been out. [] Past Medical History Past Medical History (Chronic Problems): Chronic Problems (Last Updated 12/16/19 @ 10:27 by Ana Mcdaniels) GERD with esophagitis (Chronic) Atherosclerotic heart disease of [place] coronary artery without angina pectoris (Chronic) Secondary pulmonary arterial hypertension (Chronic) Essential (primary) hypertension (Chronic) HLD (hyperlipidemia) (Chronic) Bladder cancer (Chronic) Lung cancer (Chronic) left lower lobe lobectomy without radiation Medical History: Medical History (Last Reviewed 12/23/19 @ 16:[address] Ilan Paulino, DO) GERD with esophagitis (Chronic) K21.00 Atherosclerotic heart disease of [place] coronary artery without angina pectoris (Chronic) I25.10 Secondary pulmonary arterial hypertension (Chronic) I27.21 Essential (primary) hypertension (Chronic) I10 HLD (hyperlipidemia) (Chronic) E78.5 Bladder cancer (Chronic) Lung cancer (Chronic) C34.90 left lower lobe lobectomy without radiation CKD (chronic kidney disease) N18.9 COPD (chronic obstructive pulmonary disease) J44.9 Carotid bruit R09.89 History of nephrolithiasis Z87.442 Hypoxia R09.02 Pulmonary nodules Renal calculi N20.0 left Acute hypoxemic respiratory failure (Resolved) J96.01 Aspiration pneumonia J69.0 Shortness of breath (Resolved) R06.02 Abnormal electrocardiogram (Inactive) R94.31 History of echocardiogram Onset Date: 12/10/15 Z92.89 EF 60% History of stress test Onset Date: 08/21/16 Z92.89 Allergies No Known Allergies Allergy (Verified 12/23/19 10:30) Home Medications: Ambulatory Orders Medication Instructions Recorded Albuterol Inhaler [Ventolin Hfa] 1 - 2 puff INHALATION Q4H PRN PRN 12/04/15 Aspirin E.C. [Ecotrin] 81 mg PO DAILY@0800 12/04/15 Sertraline HCl [Zoloft] 50 mg PO DAILY 12/04/15 Umeclidinium Brm/Vilanterol Tr 1 ea IH DAILY 06/23/18 [Anoro Ellipta 62.5-25 Mcg INH] tamsulosin 0.4 mg capsule 0.4 mg PO DAILY #30 cap 09/16/18 amlodipine 10 mg tablet 5 mg PO BID tab 10/13/19 isosorbide mononitrate 60 mg 60 mg PO QPM tab 10/21/19 tablet,extended release 24 hr Acetaminophen [Tylenol Extra 1,000 mg PO DAILY PRN PRN 12/23/19 Strength] Furosemide 40 mg PO DAILY 12/23/19 Ibuprofen 400 mg PO DAILY PRN PRN 12/23/19 Losartan Potassium [Cozaar] 50 mg PO BID 12/23/19 Metoprolol Tartrate 12.5 mg PO BID 12/23/19 Omeprazole 20 mg PO BID 12/23/19 Pravastatin Sodium 40 mg PO DAILY 12/23/19 Sertraline HCl [Zoloft] 25 mg PO QHS 12/23/19 Surgical History: Surgical History (Last Reviewed 12/23/19 @ 16:[address] Ilan Paulino DO) H/O coronary artery bypass surgery (Resolved) Onset Date: 07/20/03 Z95.1 CABG x6: Sequential JUAREZ-Ramus and D1, BUD to LAD, SVG -D2, Sequential SVG-PDA and LCx 07/20/2003 History of lithotripsy Onset Date: 02/2019 Z98.890 History of left heart catheterization (LHC) Onset Date: 10/18/12 Z98.890 01/07/2005 History of lobectomy of lung Z90.2 History of tonsillectomy Z98.890, Z90.89 History of transurethral resection of prostate Onset Date: 06/03/06 Z98.890, Z90.79 Surgical History: coronary bypass surgery, - - lower lobe lobectomy due to malignant Lives: Alone Smoking Status: Former smoker Tobacco Use: Non-smoker Alcohol: None Drugs: None - *Family History Paternal Family History: Family History (Last Reviewed 12/23/19 @ 16:[address] Ilan Paulino DO) Mother Cancer Brother Diabetes History Items: Heart Disease Review of Systems Constitutional: Reports: Chills, Fever, Malaise, Weakness. Denies: Anorexia Eyes: Denies: Blurred vision, Double vision HEENT: Denies: Head Aches, Sinus Congestion, Sinus Drainage Cardiovascular: Denies: Chest Pain, Palpitations Respiratory: Reports: Cough - Productive of yellow phlegm, Shortness of Breath Gastrointestinal: Denies: Abdominal Pain, Nausea, Vomiting Genitourinary: Denies: Dysuria Musculoskeletal: Denies: Joint Pain, Joint Tenderness Skin: Denies: Rash, Wounds Neurological: Denies: Numbness, Tingling, Focal weakness Psychiatric: Denies: Anxiety, Depression Hematologic/ Lymphatic: Denies: Easy Bruising, Easy Bleeding, Hx of blood clot Comment: All review of systems were negative except as mentioned above in the history of present illness and the other review of systems. VTE Information - Inpt Only VTE Present on Admission: No VTE Mechan Device Prophylaxis: None VTE Pharm Prophylaxis ordered?: Yes - Physical Exam Vitals/I&O's: Vital Signs Temp Pulse Resp BP Pulse Ox 36.8 C 106 H 20 H 109/75 95 12/23/19 15:47 12/23/19 15:45 12/23/19 15:45 12/23/19 15:45 12/23/19 15:45 Oxygen Flow Rate (L/min) 4 Oxygen Delivery Method Bi-pap Weight: 93.894 kg Body Mass Index (BMI) 29.2 Intake and Output for Last 24 Hours 12/21/19 12/22/19 12/23/19 23:59 23:59 23:59 Intake Total 1305.00 / 1305.00 Balance 1305.00 / 1305.00 General: Alert, No apparent distress HEENT: Atraumatic, Normocephalic Oral: Moist Mucosa, No Gingival or Mucosal Lesions/ Ulcerations Neck: No Nodes, Thyroid Normal Size and Texture Lungs: Diminished, - - Crackles in right base Cardiovascular: Regular rate, Regular Rhythm, Normal S1, Normal S2, No murmurs Abdomen: Bowel Sounds Present, Soft, Non Tender, Non-Distended, No Hepato-splenomegaly Extremities: No edema, No Calf Tenderness Skin: No rashes, No breakdown Musculoskeletal: No Tenderness to Palpation of Joints or Extremities, No Muscle Wasting Neurological: Muscle tone normal, Sensory exam intact to light touch and pain Psych/Mental Status: Normal Affect, Appropriate Laboratory Results 12/23/19 11:05: WBC 5.1, RBC 4.42 L, Hgb 13.6, Hct 42.8, MCV 96.8 H, MCH 30.8, MCHC 31.8 L, RDW Std Deviation 48.3 H, RDW Coeff of Jamar 13.4, Plt Count 98 L, MPV 10.1, Immature Gran % (Auto) 0.400, Neut % (Auto) 68.6, Lymph % (Auto) 19.4, [place] % (Auto) 11.2 H, Eos % (Auto) 0.0, Baso % (Auto) 0.4, Absolute Neuts (auto) 3.5, Absolute Lymphs (auto) 0.99, Nucleated RBC % 0, Differential Comment , Platelet Estimate SLT DEC, RBC Morphology NORM C+C 12/23/19 11:05: PT 13.0, INR 1.0, APTT 36.9 H 12/23/19 11:05: Sodium 138, Potassium 3.8, Chloride 103, Carbon Dioxide 26.0, Anion Gap 9, BUN 45 H, Creatinine 1.93 H, Estim Creat Clear Calc 32.57, Est GFR (MDRD) Af Amer 44 L, Est GFR (MDRD) Non-Af 36 L, BUN/Creatinine Ratio 23.3 H, Glucose 116 H, Calcium 9.1, Total Bilirubin 0.80, AST 21, ALT 15 L, Alkaline Phosphatase 58, Total Protein 6.8, Albumin 3.2, Globulin 3.6, Albumin/Globulin Ratio 0.9 12/23/19 11:05: Lactic Acid 1.8 12/23/19 11:25: COVID-19 (BETTY) Detected 12/23/19 11:42: Specimen Type ART, Sample Site L Radial, pH 7.35, Bicarbonate Actual 23.4, Total CO2 25, Base Excess -2, O2 Saturation 81 L, O2 % 50, ABG pCO2 42.2, ABG pO2 47 L, Michael Test Positive, O2 Delivery Device Venti Mask 12/23/19 12:35: Urine Color Yellow, Urine Clarity Clear, Urine pH 5.0, Ur Specific [place] 1.020, Urine Protein 15 H, Urine Glucose (UA) Normal, Urine Ketones 5 H, Urine Occult Blood Negative, Urine Nitrite Negative, Urine Bilirubin Negative, Urine Urobilinogen Normal, Ur Leukocyte Esterase Negative, Urine RBC 0 SEEN, Urine WBC 0 SEEN, Ur Squamous Epith Cells 0 SEEN, Urine Bacteria 1+, Hyaline Casts 0-5 SEEN, Urine Mucus 0 SEEN Bilateral infiltrates though more prominent on the right. Assessment/Plan All Active Problems (Last Updated 12/16/19 @ 10:27 by Ana Mcdaniels) Acute respiratory failure with hypoxia (Acute) Bilateral pneumonia (Acute) Sepsis (Acute) Elevated serum creatinine (Acute) COVID-19 (Acute) H/O coronary artery bypass surgery (Resolved 07/20/03) Abdominal pain (Resolved) Acute hypoxemic respiratory failure (Resolved) Constipation (Resolved) Elevated lactic acid level (Resolved) Shortness of breath (Resolved) 1. Acute COVID-19 pneumonia: Patient unclear as to where he contracted it. Patient to be admitted to the cohort unit. Patient be started on dexamethasone. Infectious disease will be on consultation. Before I knew the diagnosis of COVID-19 I advised patient that if he does come back positive for his spouse to get checked. Check additional lab work. 2. Possible pneumococcal pneumonia: Check a urine antigens for Streptococcus and Legionella. Check sputum culture if able. Continue with empiric ceftriaxone and azithromycin. The nurse in the emergency room contacted me saying that he unintentionally got an additional 100 mg of azithromycin today. 3. Acute hypoxic respiratory failure: Now placed on BiPAP. Secondary to above plus underlying COPD. If D-dimer is significantly elevated may need to start on anticoagulation, full dose. Given his kidney function at present, he is not a candidate for CT angiogram of the chest. Consult placed to pulmonology. 4. Acute kidney injury versus chronic kidney disease stage III: Creatinine back in June 2018 was 1.2. Will hold his losartan, furosemide, ibuprofen. Given the COVID-19, will hold off on additional IV fluids at this time. 5. Hyperglycemia: No known history of diabetes. Signed scale insulin as his blood sugar was slightly high and may go higher with the dexamethasone. 6. VTE prophylaxis with enoxaparin 7. Advanced care planning: Discussed with the patient. Discussed CPR and intubation with the patient. He wishes to be full CODE STATUS at this time. Inpatient E&M: 96102 Init Hosp L3
--- NOTE | 2019-12-23 17:09 | CON.PCM_ITS ---
Problem List (1) COVID-19 Status: Acute Reason for Consult: covid Consulted by: Dr. Paulino History of Present Illness: The patient is a 79 year old M presented to ED this AM with 7 days of progressive cough, aches, diarrhea, fatigue, and dyspnea. No fever or chills. Some yellow sputum. No sick contacts, has been masking. had a slight cold a few weeks ago. No change in taste or smell. Came to ED, sat was 84%, now on 80% bipap. Covid (+), given azithro and ceftriaxone. Full ROS performed and neg except as noted above. - Medical History Past Medical History (Chronic Problems): Chronic Problems (Last Reviewed 12/23/19 @ 16:[address] Ilan Paulino, DO) GERD with esophagitis (Chronic) Atherosclerotic heart disease of [place] coronary artery without angina pectoris (Chronic) Secondary pulmonary arterial hypertension (Chronic) Essential (primary) hypertension (Chronic) HLD (hyperlipidemia) (Chronic) Bladder cancer (Chronic) Lung cancer (Chronic) left lower lobe lobectomy without radiation Allergies/Adverse Reactions: Allergies No Known Allergies Allergy (Verified 12/23/19 10:30) Home Medications: Ambulatory Orders Medication Instructions Recorded Albuterol Inhaler [Ventolin Hfa] 1 - 2 puff INHALATION Q4H PRN PRN 12/04/15 Aspirin E.C. [Ecotrin] 81 mg PO DAILY@0800 12/04/15 Sertraline HCl [Zoloft] 50 mg PO DAILY 12/04/15 Umeclidinium Brm/Vilanterol Tr 1 ea IH DAILY 06/23/18 [Anoro Ellipta 62.5-25 Mcg INH] tamsulosin 0.4 mg capsule 0.4 mg PO DAILY #30 cap 09/16/18 amlodipine 10 mg tablet 5 mg PO BID tab 10/13/19 isosorbide mononitrate 60 mg 60 mg PO QPM tab 10/21/19 tablet,extended release 24 hr Acetaminophen [Tylenol Extra 1,000 mg PO DAILY PRN PRN 12/23/19 Strength] Furosemide 40 mg PO DAILY 12/23/19 Ibuprofen 400 mg PO DAILY PRN PRN 12/23/19 Losartan Potassium [Cozaar] 50 mg PO BID 12/23/19 Metoprolol Tartrate 12.5 mg PO BID 12/23/19 Omeprazole 20 mg PO BID 12/23/19 Pravastatin Sodium 40 mg PO DAILY 12/23/19 Sertraline HCl [Zoloft] 25 mg PO QHS 12/23/19 - Social History SMOKING STATUS:: Former smoker Vital Signs Temp Pulse Resp BP Pulse Ox 98.2 F 106 H 20 H 109/75 95 12/23/19 15:47 12/23/19 15:45 12/23/19 15:45 12/23/19 15:45 12/23/19 15:45 Oxygen Flow Rate (L/min) 4 Oxygen Delivery Method Bi-pap Weight: 93.894 kg Body Mass Index (BMI) 29.2 Laboratory Tests Past 24 Hrs 12/23/19 12/23/19 12/23/19 11:05 11:05 11:05 WBC 5.1 RBC 4.42 L Hgb 13.6 Hct 42.8 MCV 96.8 H MCH 30.8 MCHC 31.8 L RDW Std Deviation 48.3 H RDW Coeff of Jamar 13.4 Plt Count 98 L MPV 10.1 Immature Gran % (Auto) 0.400 Neut % (Auto) 68.6 Lymph % (Auto) 19.4 [place] % (Auto) 11.2 H Eos % (Auto) 0.0 Baso % (Auto) 0.4 Absolute Neuts (auto) 3.5 Absolute Lymphs (auto) 0.99 Nucleated RBC % 0 Differential Comment Platelet Estimate SLT DEC RBC Morphology NORM C+C PT 13.0 INR 1.0 APTT 36.9 H Specimen Type Sample Site pH Bicarbonate Actual Total CO2 Base Excess O2 Saturation O2 % ABG pCO2 ABG pO2 Michael Test O2 Delivery Device Sodium 138 Potassium 3.8 Chloride 103 Carbon Dioxide 26.0 Anion Gap 9 BUN 45 H Creatinine 1.93 H Estim Creat Clear Calc 32.57 Est GFR (MDRD) Af Amer 44 L Est GFR (MDRD) Non-Af 36 L BUN/Creatinine Ratio 23.3 H Glucose 116 H Lactic Acid Calcium 9.1 Total Bilirubin 0.80 AST 21 ALT 15 L Alkaline Phosphatase 58 Total Protein 6.8 Albumin 3.2 Globulin 3.6 Albumin/Globulin Ratio 0.9 Urine Color Urine Clarity Urine pH Ur Specific [place] Urine Protein Urine Glucose (UA) Urine Ketones Urine Occult Blood Urine Nitrite Urine Bilirubin Urine Urobilinogen Ur Leukocyte Esterase Urine RBC Urine WBC Ur Squamous Epith Cells Urine Bacteria Hyaline Casts Urine Mucus COVID-19 (BETTY) 12/23/19 12/23/19 12/23/19 11:05 11:25 11:42 WBC RBC Hgb Hct MCV MCH MCHC RDW Std Deviation RDW Coeff of Jamar Plt Count MPV Immature Gran % (Auto) Neut % (Auto) Lymph % (Auto) [place] % (Auto) Eos % (Auto) Baso % (Auto) Absolute Neuts (auto) Absolute Lymphs (auto) Nucleated RBC % Differential Comment Platelet Estimate RBC Morphology PT INR APTT Specimen Type ART Sample Site L Radial pH 7.35 Bicarbonate Actual 23.4 Total CO2 25 Base Excess -2 O2 Saturation 81 L O2 % 50 ABG pCO2 42.2 ABG pO2 47 L Michael Test Positive O2 Delivery Device Venti Mask Sodium Potassium Chloride Carbon Dioxide Anion Gap BUN Creatinine Estim Creat Clear Calc Est GFR (MDRD) Af Amer Est GFR (MDRD) Non-Af BUN/Creatinine Ratio Glucose Lactic Acid 1.8 Calcium Total Bilirubin AST ALT Alkaline Phosphatase Total Protein Albumin Globulin Albumin/Globulin Ratio Urine Color Urine Clarity Urine pH Ur Specific [place] Urine Protein Urine Glucose (UA) Urine Ketones Urine Occult Blood Urine Nitrite Urine Bilirubin Urine Urobilinogen Ur Leukocyte Esterase Urine RBC Urine WBC Ur Squamous Epith Cells Urine Bacteria Hyaline Casts Urine Mucus COVID-19 (BETTY) Detected 12/23/19 12:35 WBC RBC Hgb Hct MCV MCH MCHC RDW Std Deviation RDW Coeff of Jamar Plt Count MPV Immature Gran % (Auto) Neut % (Auto) Lymph % (Auto) [place] % (Auto) Eos % (Auto) Baso % (Auto) Absolute Neuts (auto) Absolute Lymphs (auto) Nucleated RBC % Differential Comment Platelet Estimate RBC Morphology PT INR APTT Specimen Type Sample Site pH Bicarbonate Actual Total CO2 Base Excess O2 Saturation O2 % ABG pCO2 ABG pO2 Michael Test O2 Delivery Device Sodium Potassium Chloride Carbon Dioxide Anion Gap BUN Creatinine Estim Creat Clear Calc Est GFR (MDRD) Af Amer Est GFR (MDRD) Non-Af BUN/Creatinine Ratio Glucose Lactic Acid Calcium Total Bilirubin AST ALT Alkaline Phosphatase Total Protein Albumin Globulin Albumin/Globulin Ratio Urine Color Yellow Urine Clarity Clear Urine pH 5.0 Ur Specific [place] 1.020 Urine Protein 15 H Urine Glucose (UA) Normal Urine Ketones 5 H Urine Occult Blood Negative Urine Nitrite Negative Urine Bilirubin Negative Urine Urobilinogen Normal Ur Leukocyte Esterase Negative Urine RBC 0 SEEN Urine WBC 0 SEEN Ur Squamous Epith Cells 0 SEEN Urine Bacteria 1+ Hyaline Casts 0-5 SEEN Urine Mucus 0 SEEN COVID-19 (BETTY) - Other Studies Radiology: [] reviewed Other Studies: [] Route of nutrition/ use of supplements: [] Nutritional Intake: [] IV Site: [] May Catheter: [] - Physical Exam General: Alert, Oriented x3, Cooperative, - - ill appearing HEENT: Atraumatic, PERRLA, EOMI Neck: Supple, No Nodes Lungs: Diminished Cardiovascular: Tachycardic Abdomen: Soft, Non Tender, Non-Distended Extremities: No edema Skin: No rashes IV Site: Peripheral, without redness Musculoskeletal: No Tenderness to Palpation of Joints or Extremities Neurological: Cranial nerves II-XII grossly intact - Assessment/Plan Antibiotics: [] Assessment/Plan: [] Active and Suspected Problems (Last Reviewed 12/23/19 @ 16:[address] Ilan Paulino, DO) Acute respiratory failure with hypoxia (Acute) Bilateral pneumonia (Acute) Sepsis (Acute) Elevated serum creatinine (Acute) COVID-19 (Acute) Covid with hypoxia - reviewed EUA and risks/benefits of plasma, he agrees to treatment. Will start dex, remdesivir, and plasma. If GFR worsens, will need to stop remdesivir. D-dimer, PCT, sputum cx, UAgs pending. Will check ABO. M ay be able to stop abx soon; overall low suspicion for bacterial process. Pulm consulted as well. Will follow, thank you
--- NOTE | 2019-12-23 17:43 | NURSING ---
DR DEVRIES IN ROOM
[2019-12-23 21:10] LABS: Prothrombin Time (Protime)PT. 12.8 SECONDS (11.7-14.9)
[2019-12-23 21:37] LABS: D-Dimer Quantitative (DVT/PE) 0.98 FEU/ug/m (0.27-0.49)
[2019-12-23] MEDS: Enoxaparin 30 MG/0.3 ML Syringe SC (21:45)
[2019-12-23] MEDS: dexAMETHasone 10 MG/ML Vial 6 MG IV (21:45)
[2019-12-23] MEDS: Pravastatin 40 MG Tablet PO (21:58)
[2019-12-23] MEDS: Pantoprazole Sodium 20 MG Tablet PO (21:58)
[2019-12-23] MEDS: amLODIPine 5 MG Tablet PO (21:58)
[2019-12-23] MEDS: Isosorbide Mononitrate 60 MG Tablet PO (21:58)
[2019-12-23] MEDS: Sertraline 50 MG Tablet 25 MG PO (21:58)
[2019-12-23] MEDS: Losartan Potassium 50 MG Tablet PO (21:58)
[2019-12-23] MEDS: Metoprolol Tartrate 25 MG Tablet 12.5 MG PO (21:58)
[2019-12-23] MEDS: Ipratropium/Albuterol Sulfate 3 ML AMPUL.NEB INHALATION (22:01)
[2019-12-23 22:26] LABS: Procalcitonin < 0.04 ng/mL (0.00-0.09)
[2019-12-24] VITALS (27 sets, daily range): BP systolic 107–142; BP diastolic 73–88; PULSE 108–120; RESP 12–24; TEMP 36.1–37.1; O2SAT 88–96
[2019-12-24] MEDS: Ipratropium/Albuterol Sulfate 3 ML AMPUL.NEB INHALATION ×3 (07:22→20:05)
[2019-12-24 08:09] LABS: Absolute Lymphocyte Count 0.82 X10^3/uL (0.83-4.51); Absolute Neutrophil Count 2.1 X10^3/uL (2.0-7.7); Basophil# 0.01 X10^3/uL; Basophil% 0.3 % (0-1); Hematocrit 41.1 % (40-54); Hemoglobin 13.3 g/dL (13.0-16.5); Lymphocyte # 0.82 X10^3/ul (4.0); Mean Corp Hgb Conc 32.4 g/dL (32-36); Mean Corpuscular Hgb 31.4 pg (27.0-32.0); Mean Corpuscular Volume 97.2 fL (80-94); Mean Platelet Vol. 10.2 fl (6.2-12.0); Monocyte# 0.23 X10^3/uL; Monocyte% 7.3 % (0-10); NRBC Flagged by Analyzer 0 % (0-5); Neutrophil # 2.08 X10^3/uL (2.7-7.7); Neutrophil % 66.1 % (47-70); POSITIVE COUNT YES; POSITIVE MORPHOLOGY YES; Platelet Count 84 K/mm3 (150-450); RBC Distribution Width CV 13.3 % (11.6-14.6); RBC Distribution Width SD 47.6 fl (35.1-43.9); Red Blood Count 4.23 M/mm3 (4.6-6.2); White Blood Count 3.2 K/mm3 (4.4-11.0)
[2019-12-24 08:10] LABS: Differential Indicated SCAN CRITERIA MET
[2019-12-24 08:28] LABS: ALB/GLOB Ratio 0.8 RATIO (0.9-2.4); AST(SGOT) 25 U/L (15-37); Alanine Aminotransfer ALT/SGPT 14 U/L (16-61); Albumin, Serum 2.9 g/dL (3.2-5.0); Alkaline Phosphatase 60 U/L (45-117); Anion Gap 5 (5-15); BUN 43 mg/dL (7-18); BUN/Creat Ratio 31.4 RATIO (10-20); Calcium,Total 9.4 mg/dL (8.5-10.1); Chloride 110 mmol/L (98-107); Creatinine, Serum 1.37 mg/dL (0.70-1.30); EST Glomerular Filtration Rate 53 mL/min (>60); Est Glom Filt Rate - Afr Amer 65 mL/min (>60); Estimated Creatinine Clearance 45.88 ml/min; Globulin 3.7 g/dL (2.2-4.2); Glucose 148 mg/dL (74-106); Potassium 4.2 mmol/L (3.5-5.1); Protein, Total 6.6 g/dL (6.4-8.2); Sodium Level 140 mmol/L (136-145)
[2019-12-24] MEDS: Losartan Potassium 50 MG Tablet PO ×2 (10:12→20:45)
[2019-12-24] MEDS: dexAMETHasone 10 MG/ML Vial 6 MG IV (10:12)
[2019-12-24] MEDS: Aspirin E.C. 81 MG Tablet PO (10:13)
[2019-12-24] MEDS: Furosemide 40 MG Tablet PO (10:13)
[2019-12-24] MEDS: Metoprolol Tartrate 25 MG Tablet 12.5 MG PO ×2 (10:13→20:44)
[2019-12-24] MEDS: Tamsulosin HCl 0.4 MG Capsule PO (10:13)
[2019-12-24] MEDS: Pantoprazole Sodium 20 MG Tablet PO ×2 (10:15→20:45)
[2019-12-24] MEDS: Enoxaparin 100 MG/ML Syringe 90 MG SC ×2 (10:15→20:45)
[2019-12-24] MEDS: amLODIPine 5 MG Tablet PO ×2 (10:15→20:45)
[2019-12-24] MEDS: 0.9% Saline Lock 10 ML Syringe IV (10:16)
[2019-12-24 11:06] LABS: Bedside Glucose 155 mg/dL (70-110)
[2019-12-24 11:11] LABS: Differential Comment SCANNED
--- NOTE | 2019-12-24 11:30 | CASEMGMT ---
RN CM called patient in room for initial transition planning/care coordination assessment. RN CM introduced self and role at [facility]. Patient is alert and oriented. Patient willing to participate in assessment and is able to answer all questions appropriately. Care providers, pharmacy, and demographics verified. Patient wishes to discharge home, denies need for home health at this time. Patient states he has no further needs or concerns at this time. CM to follow for discharge planning needs that may arise. PCP: Evonne Specialists: Aylin director of consumer marketing Preferred Pharmacy: [facility] retail Insurance: [facility] Prescription Benefit: yes Living Will/HPOA: yes, Estrella Vann LNOK: Living Arrangements: Patient lives with in a 1 story home with 2 steps and grab bar to enter. Patient states him and are able to self isolate and family can bring groceries. Transportation: DME/HHC: patient has raised toilet at home. Denies previous HHC. Will monitor need for home oxygen at discharge. List provided to patient and would like [employer]. Disposition Plan: Patient to discharge home with family support and follow-up plans in place. Marisol GARCIA, RN, CM
--- NOTE | 2019-12-24 11:58 | PCM.CONS.PUL ---
Problem List (1) Acute respiratory failure with hypoxia Status: Acute (2) Bilateral pneumonia Status: Acute (3) COVID-19 Status: Acute (4) GERD with esophagitis Status: Chronic (5) Atherosclerotic heart disease of [place] coronary artery without angina pectoris Status: Chronic Qualifiers: [place] vs. transplanted heart: [place] heart Qualified Code(s): I25.10 - Atherosclerotic heart disease of [place] coronary artery without angina pectoris; I25.10 - Atherosclerotic heart disease of [place] coronary artery without angina pectoris; I25.10 - Atherosclerotic heart disease of [place] coronary artery without angina pectoris Comment: (6) H/O coronary artery bypass surgery Status: Resolved Comment: CABG x6: Sequential JUAREZ-Ramus and D1, BUD to LAD, SVG -D2, Sequential SVG-PDA and LCx 07/20/2003 (7) Secondary pulmonary arterial hypertension Status: Chronic (8) Essential (primary) hypertension Status: Chronic (9) HLD (hyperlipidemia) Status: Chronic Reason for Consult Date of Consultation: 12/24/19 Reason for Consultation: Hypoxia History of Present Illness: The patient is a 79 year old M, with past medical history listed below, who presented [facility] on 12/23/2019 secondary to 1 week of progressive shortness of breath, fever, chills and nonproductive cough. Patient reported that he did not know any exposures to COVID-19. However, patient had developed fever, chills and worsening shortness of breath while at home. Patient does have a history of lung and bladder cancer status post left lower lobectomy. In the ER, patient was hypotensive at 95/51, tachycardic at 118 bpm and hypoxic at 85%. Laboratory work-up showed no leukocytosis with a white blood cell count of 5.1, thrombocytopenia at 98, chronic kidney disease with a BUN of 45, creatinine of 193 and normal liver function studies. Patient was placed on a Ventimask and ABG showed significant AA gradient. Patient did receive 1 L of crystalloid secondary to hypotension. Patient was also given antibiotics for community-acquired pneumonia. Patient was cyanotic on 4 to 6 L, but did respond to Venturi mask. Patient was admitted to the cohort unit. Since being on the cohort unit, patient overall feels subjectively unchanged compared to previous. Patient continues to have a cough that is grossly nonproductive. Patient denies any current nausea or vomiting. Patient does report some chest discomfort, but does not report radiation, diaphoresis or palpitations. Patient reports a history of COPD and did have a walking oximetry in 2016 that did show mild desaturation, but patient reports he does not use supplemental oxygen at baseline. Review of systems otherwise negative from a constitutional, HEENT, respiratory, cardiovascular, GI, genitourinary, musculoskeletal, skin, neurologic, psychiatric and hematologic system unless stated above. Past Medical History Past Medical History (Chronic Problems): Chronic Problems (Last Reviewed 12/23/19 @ 16:[address] Ilan Paulino DO) GERD with esophagitis (Chronic) Atherosclerotic heart disease of [place] coronary artery without angina pectoris (Chronic) Secondary pulmonary arterial hypertension (Chronic) Essential (primary) hypertension (Chronic) HLD (hyperlipidemia) (Chronic) Bladder cancer (Chronic) Lung cancer (Chronic) left lower lobe lobectomy without radiation Medical History: Medical History (Last Reviewed 12/23/19 @ 16:[address] Ilan Paulino DO) GERD with esophagitis (Chronic) K21.00 Atherosclerotic heart disease of [place] coronary artery without angina pectoris (Chronic) I25.10 Secondary pulmonary arterial hypertension (Chronic) I27.21 Essential (primary) hypertension (Chronic) I10 HLD (hyperlipidemia) (Chronic) E78.5 Bladder cancer (Chronic) Lung cancer (Chronic) C34.90 left lower lobe lobectomy without radiation CKD (chronic kidney disease) N18.9 COPD (chronic obstructive pulmonary disease) J44.9 Carotid bruit R09.89 History of nephrolithiasis Z87.442 Hypoxia R09.02 Pulmonary nodules Renal calculi N20.0 left Acute hypoxemic respiratory failure (Resolved) J96.01 Aspiration pneumonia J69.0 Shortness of breath (Resolved) R06.02 Abnormal electrocardiogram (Inactive) R94.31 History of echocardiogram Onset Date: 12/10/15 Z92.89 EF 60% History of stress test Onset Date: 08/21/16 Z92.89 Allergies No Known Allergies Allergy (Verified 12/23/19 10:30) Home Medications: Ambulatory Orders Medication Instructions Recorded Albuterol Inhaler [Ventolin Hfa] 1 - 2 puff INHALATION Q4H PRN PRN 12/04/15 Aspirin E.C. [Ecotrin] 81 mg PO DAILY@0800 12/04/15 Sertraline HCl [Zoloft] 50 mg PO DAILY 12/04/15 Umeclidinium Brm/Vilanterol Tr 1 ea IH DAILY 06/23/18 [Anoro Ellipta 62.5-25 Mcg INH] tamsulosin 0.4 mg capsule 0.4 mg PO DAILY #30 cap 09/16/18 amlodipine 10 mg tablet 5 mg PO BID tab 10/13/19 isosorbide mononitrate 60 mg 60 mg PO QPM tab 10/21/19 tablet,extended release 24 hr Acetaminophen [Tylenol Extra 1,000 mg PO DAILY PRN PRN 12/23/19 Strength] Furosemide 40 mg PO DAILY 12/23/19 Ibuprofen 400 mg PO DAILY PRN PRN 12/23/19 Losartan Potassium [Cozaar] 50 mg PO BID 12/23/19 Metoprolol Tartrate 12.5 mg PO BID 12/23/19 Omeprazole 20 mg PO BID 12/23/19 Pravastatin Sodium 40 mg PO DAILY 12/23/19 Sertraline HCl [Zoloft] 25 mg PO QHS 12/23/19 Surgical History: Surgical History (Last Reviewed 12/23/19 @ 16:[address] Ilan Paulino DO) H/O coronary artery bypass surgery (Resolved) Onset Date: 07/20/03 Z95.1 CABG x6: Sequential JUAREZ-Ramus and D1, BUD to LAD, SVG -D2, Sequential SVG-PDA and LCx 07/20/2003 History of lithotripsy Onset Date: 02/2019 Z98.890 History of left heart catheterization (LHC) Onset Date: 10/18/12 Z98.890 01/07/2005 History of lobectomy of lung Z90.2 History of tonsillectomy Z98.890, Z90.89 History of transurethral resection of prostate Onset Date: 06/03/06 Z98.890, Z90.79 Surgical History: coronary bypass surgery, - - lower lobe lobectomy due to malignant Lives: Alone Smoking Status: Former smoker Tobacco Use: Non-smoker Alcohol: None Drugs: None - *Family History Paternal Family History: Family History (Last Reviewed 12/23/19 @ 16:[address] Ilan Paulino DO) Mother Cancer Brother Diabetes History Items: Heart Disease Review of Systems Comment: See HPI Patient Problems: Active and Suspected Problems (Last Reviewed 12/23/19 @ 16:[address] Ilan Paulino, DO) Acute respiratory failure with hypoxia (Acute) Bilateral pneumonia (Acute) Sepsis (Acute) Elevated serum creatinine (Acute) COVID-19 (Acute) Subjective: Patient did receive remdesivir and convalescent serum overnight and tolerated them well per the nurse. Objective: Chest x-ray was personally reviewed and shows bilateral infiltrates, right greater than left. Patient does not have a pulmonary function test available for review. Patient did have an echocardiogram in September of this year showing an EF of 55% with stage I diastolic dysfunction, mildly enlarged left atrium and an elevated pulmonary artery pressure of 57 mmHg. - Physical Exam Vitals/I&O's: Vital Signs Temp Pulse Resp BP Pulse Ox 36.6 C 119 H 18 120/80 88 12/24/19 09:57 12/24/19 10:13 12/24/19 09:57 12/24/19 09:57 12/24/19 09:57 Oxygen Flow Rate (L/min) 15 Oxygen Delivery Method Nasal Cannula Weight: 94.829 kg Body Mass Index (BMI) 29.9 Intake and Output for Last 24 Hours 12/22/19 12/23/19 12/24/19 23:59 23:59 23:59 Intake Total 1546.25 / 1546.25 250 / 250 Output Total 150 / 150 200 / 200 Balance 1396.25 / 1396.25 50 / 50 General: Alert, Oriented x3, Cooperative, No apparent distress - On supplemental oxygen, - - Appears stated age. Mild conversational dyspnea. HEENT: Atraumatic, PERRLA, EOMI, Normocephalic, - - No scleral icterus or injection noted Oral: Moist Mucosa, No Gingival or Mucosal Lesions/ Ulcerations Neck: Supple, No Nodes, Trachea Midline, JVD, Right Lungs: No rales, Diminished, Rhonchi - Improves with cough, Wheezes - Sporadic Cardiovascular: Normal S1, Normal S2, No murmurs, No rub noted, No Gallop, Tachycardic Abdomen: Bowel Sounds Present, Soft, Non Tender, Non-Distended Extremities: No clubbing, No cyanosis, Edema - Trace Skin: No rashes, No breakdown Musculoskeletal: No Tenderness to Palpation of Joints or Extremities Lymphatic: No Cervical, Supraclavicular, or Inguinal Adenopathy Neurological: Cranial nerves II-XII grossly intact, Neuro grossly intact, Motor Exam 5/5 strength throughout Psych/Mental Status: Alert and oriented to time, place, person, mood and affect Microbiology Past 72 Hours 12/23/19 12:35 Urine Catheter - Catheter Urine Culture - Preliminary Culture exhibits no growth. 12/23/19 22:40 Urine, Random Legionella Antigen - Final 12/23/19 22:40 Urine, Random Streptococcus pneumoniae Antigen (M - Final Laboratory Results 12/23/19 11:05: WBC 5.1, RBC 4.42 L, Hgb 13.6, Hct 42.8, MCV 96.8 H, MCH 30.8, MCHC 31.8 L, RDW Std Deviation 48.3 H, RDW Coeff of Jamar 13.4, Plt Count 98 L, MPV 10.1, Immature Gran % (Auto) 0.400, Neut % (Auto) 68.6, Lymph % (Auto) 19.4, Blaine % (Auto) 11.2 H, Eos % (Auto) 0.0, Baso % (Auto) 0.4, Absolute Neuts (auto) 3.5, Absolute Lymphs (auto) 0.99, Nucleated RBC % 0, Differential Comment , Platelet Estimate SLT DEC, RBC Morphology NORM C+C 12/23/19 11:05: PT 13.0, INR 1.0, APTT 36.9 H 12/23/19 11:05: Lactic Acid 1.8 12/23/19 11:25: COVID-19 (BETTY) Detected 12/23/19 12:35: Urine Color Yellow, Urine Clarity Clear, Urine pH 5.0, Ur Specific Mart 1.020, Urine Protein 15 H, Urine Glucose (UA) Normal, Urine Ketones 5 H, Urine Occult Blood Negative, Urine Nitrite Negative, Urine Bilirubin Negative, Urine Urobilinogen Normal, Ur Leukocyte Esterase Negative, Urine RBC 0 SEEN, Urine WBC 0 SEEN, Ur Squamous Epith Cells 0 SEEN, Urine Bacteria 1+, Hyaline Casts 0-5 SEEN, Urine Mucus 0 SEEN 12/23/19 20:44: PT 12.8, INR 1.0, D-Dimer Quant (PE/DVT) 0.98 H* 12/23/19 20:44: Blood Type O POSITIVE 12/23/19 20:44: Procalcitonin < 0.04 12/24/19 07:42: WBC 3.2 L, RBC 4.23 L, Hgb 13.3, Hct 41.1, MCV 97.2 H, MCH 31.4, MCHC 32.4, RDW Std Deviation 47.6 H, RDW Coeff of Jamar 13.3, Plt Count 84 L, MPV 10.2, Immature Gran % (Auto) 0.300, Neut % (Auto) 66.1, Lymph % (Auto) 26.0, Blaine % (Auto) 7.3, Eos % (Auto) 0.0, Baso % (Auto) 0.3, Absolute Neuts (auto) 2.1, Absolute Lymphs (auto) 0.82 L, Nucleated RBC % 0, Differential Comment SCANNED 12/24/19 07:42: Sodium 140, Potassium 4.2, Chloride 110 H, Carbon Dioxide 25.0, Anion Gap 5, BUN 43 H, Creatinine 1.37 H, Estim Creat Clear Calc 45.88, Est GFR (MDRD) Af Amer 65, Est GFR (MDRD) Non-Af 53 L, BUN/Creatinine Ratio 31.4 H, Glucose 148 H, Calcium 9.4, Total Bilirubin 0.60, AST 25, ALT 14 L, Alkaline Phosphatase 60, Total Protein 6.6, Albumin 2.9 L, Globulin 3.7, Albumin/Globulin Ratio 0.8 L 12/24/19 07:42: Troponin I < 0.015 12/24/19 09:54: POC Glucose 155 H Current Medications Acetaminophen (Acetaminophen 325 Mg Tablet) 650 mg PO Q6H PRN PRN PRN Reason: Pain Score 1-10/Temp > 100.7 F Albuterol Sulfate (Albuterol Sulfate 8 Gm Inhaler (60 Puffs)) 2 puff INHALATION Q4H PRN PRN PRN Reason: WHEEZING Albuterol/Ipratropium (Ipratropium/Albuterol Sulfate 3 Ml Ampul.Neb) 3 ml INHALATION Q6HWA.RT YANIRA Last Admin: 12/24/19 07:22 Dose: 3 ml Documented by: Amlodipine Besylate (Amlodipine 5 Mg Tablet) 5 mg PO BID [facility] Last Admin: 12/24/19 10:15 Dose: 5 mg Documented by: Aspirin (Aspirin E.C. 81 Mg Tablet) 81 mg PO DAILY [facility] Last Admin: 12/24/19 10:13 Dose: 81 mg Documented by: Dexamethasone Sodium Phosphate (Dexamethasone 10 Mg/Ml Vial) 6 mg IV DAILY [facility] Stop: 01/01/20 10:01 Last Admin: 12/24/19 10:12 Dose: 6 mg Documented by: Enoxaparin Sodium (Enoxaparin 100 Mg/Ml Syringe) 90 mg 1 mg/kg (90 mg) SC Q12 [facility] Last Admin: 12/24/19 10:15 Dose: 90 mg Documented by: Furosemide (Furosemide 40 Mg Tablet) 40 mg PO DAILY [facility] Last Admin: 12/24/19 10:13 Dose: 40 mg Documented by: Azithromycin 250 mg/ Dextrose 252.5 mls @ 250 mls/hr IV Q24 [facility] Last Admin: 12/24/19 10:16 Dose: 250 mls/hr Documented by: Ceftriaxone Sodium 2 gm/ (Sodium Chloride) 50 mls @ 100 mls/hr IV Q24 [facility] Remdesivir 100 mg/ Sodium (Chloride) 250 mls @ 125 mls/hr IV DAILY [facility]; Protocol Stop: 12/27/19 11:59 Sodium Chloride () 250 mls @ 15 mls/hr IV .[id number] PRN PRN Reason: Saline Flush Last Infusion: 12/23/19 21:50 Dose: 0 mls/hr Documented by: Sodium Chloride () 250 mls @ 15 mls/hr IV .[id number] PRN PRN Reason: Additional IVPB Infusion Insulin Human Lispro (Insulin Lispro 100 Unit/Ml Insuln.Pen) 0 unit SC TIDCM [facility]; Protocol Last Admin: 12/24/19 10:09 Dose: Not Given Documented by: Isosorbide Mononitrate (Isosorbide Mononitrate 60 Mg Tablet) 60 mg PO QHS [facility] Last Admin: 12/23/19 21:58 Dose: 60 mg Documented by: Losartan Potassium (Losartan Potassium 50 Mg Tablet) 50 mg PO BID [facility] Last Admin: 12/24/19 10:12 Dose: 50 mg Documented by: Metoprolol Tartrate (Metoprolol Tartrate 25 Mg Tablet) 12.5 mg PO BID [facility] Last Admin: 12/24/19 10:13 Dose: 12.5 mg Documented by: Ondansetron HCl (Ondansetron 4 Mg/2 Ml Vial) 4 mg IV Q8H PRN PRN PRN Reason: NAUSEA/VOMITING Oxycodone HCl (Oxycodone 5 Mg Tablet) 5 mg PO Q4H PRN PRN PRN Reason: Pain Score 6-10 Pantoprazole Sodium (Pantoprazole Sodium 20 Mg Tablet) 20 mg PO BID [facility] Last Admin: 12/24/19 10:15 Dose: 20 mg Documented by: Pravastatin Sodium (Pravastatin 40 Mg Tablet) 40 mg PO QHS [facility] Last Admin: 12/23/19 21:58 Dose: 40 mg Documented by: Sertraline HCl (Sertraline 50 Mg Tablet) 25 mg PO QHS [facility] Last Admin: 12/23/19 21:58 Dose: 25 mg Documented by: Sodium Chloride (0.9% Saline Lock 10 Ml Syringe) 10 - 40 ml IV UD PRN PRN Reason: SALINE FLUSH Last Admin: 12/24/19 10:16 Dose: 10 ml Documented by: Tamsulosin HCl (Tamsulosin Hcl 0.4 Mg Capsule) 0.4 mg PO DAILY [facility] Last Admin: 12/24/19 10:13 Dose: 0.4 mg Documented by: Clinical Impression(s) from Imaging Studies Chest X-Ray 12/23/19 12:20 IMPRESSION: New wedge-shaped peripheral consolidation in the right midlung with mild increased markings at the lung bases and blunting of both costophrenic angles. Pneumonitis associated with Covid 19 should be ruled out. Electronically Signed: Jake Bazzi, at 12:43 EDT , Service support , Assessment/Plan All Active Problems (Last Reviewed 12/23/19 @ 16:[address] 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 Remdesivir, convalescent serum, Decadron and anticoagulation per ID 2. Possibly transition to 10 a inhibitor in 24 to 48 hours 3. BiPAP rescue as necessary 4. Monitor body weight with diuretic challenge as necessary 5. Wean oxygen as tolerated 6. Follow blood sugars given steroid therapy IMPRESSIONS: 1. Acute hypoxic respiratory failure Multiple confounding etiologies. Patient does have acute COVID-19. There is a possibility the patient has a superinfection, but procalcitonin was low. Patient likely has an element of pulmonary hypertension secondary to noncompliance with supplemental oxygen previously. Patient has a history of COPD, but severity is unclear. Patient has been placed on remdesivir, convalescent serum, Decadron and anticoagulation by infectious disease. Possibly discontinue systemic antibiotics if culture negative at 48 hours. Agree with holding off on CTA of the chest given renal function. 2. Acute kidney injury versus CKD stage III Unclear baseline status. Patient appears to be improving with stabilization of hemodynamics. Cannot exclude an element of ATN secondary to hypoxia. Agree with holding of ARB and diuretic for now. Will need to watch fluid status closely as patient does have pulmonary hypertension, which will be very fluid responsive. 3. Hyperglycemia Patient with elevated blood sugar on presentation. Patient has been placed on Decadron. Will need to follow this closely as steroids will likely exacerbate underlying condition. Cannot exclude the need for basal insulin with higher sliding scale coverage. 4. Advanced age/obesity/history of lung resection/depression/GERD/hypertension Complicates care, management, recovery and prognosis. Some antihypertensives have been held secondary to renal function. We will continue to monitor closely. Okay to continue medications for depression and GERD. Monitor for GI complications given concomitant steroids with anticoagulation. Inpatient E&M: 62598 Init Hosp L3
[2019-12-24 12:21] LABS: Bedside Glucose 228 mg/dL (70-110)
[2019-12-24] MEDS: Insulin Lispro 100 UNIT/ML INSULN.PEN SC ×2 (12:37→17:45)
[2019-12-24] MEDS: Acetaminophen 325 MG Tablet 650 MG PO ×2 (12:49→20:44)
--- NOTE | 2019-12-24 14:52 | PCM.PN.HOSP ---
Patient Problems: Active and Suspected Problems (Last Reviewed 12/23/19 @ 16:[address] Ilan Paulino, DO) Acute respiratory failure with hypoxia (Acute) Bilateral pneumonia (Acute) Sepsis (Acute) Elevated serum creatinine (Acute) COVID-19 (Acute) Reason for Visit: COVID-19 Subjective: Changed over to NC to eat and sats range from 84-90%. Coughing up some phlegm. Vitals/I&O's: Vital Signs Temp Pulse Resp BP Pulse Ox 36.4 C L 119 H 16 121/80 H 89 12/24/19 12:42 12/24/19 13:15 12/24/19 13:15 12/24/19 12:42 12/24/19 12:42 Oxygen Flow Rate (L/min) 15 Oxygen Delivery Method Nasal Cannula Weight: 94.829 kg Body Mass Index (BMI) 29.9 Intake and Output for Last 24 Hours 12/22/19 12/23/19 12/24/19 23:59 23:59 23:59 Intake Total 1546.25 / 1546.25 872.5 / 872.5 Output Total 150 / 150 400 / 400 Balance 1396.25 / 1396.25 472.5 / 472.5 General: Alert, No apparent distress, - - on NC. No respiratory distress. No conversational dyspnea. HEENT: Atraumatic, Normocephalic Neck: No Nodes, Thyroid Normal Size and Texture Lungs: Clear to auscultation, Normal air movement, No rhonchi, No wheeze, No rales Cardiovascular: Regular rate, Regular Rhythm, Normal S1, Normal S2, No murmurs Abdomen: Bowel Sounds Present, Soft, Non Tender, Non-Distended, No Hepato-splenomegaly Extremities: No edema, No Calf Tenderness Psych/Mental Status: Normal Affect, Appropriate Microbiology Past 72 Hours 12/23/19 12:35 Urine Catheter - Catheter Urine Culture - Preliminary Culture exhibits no growth. 12/23/19 22:40 Urine, Random Legionella Antigen - Final 12/23/19 22:40 Urine, Random Streptococcus pneumoniae Antigen (M - Final Laboratory Results 12/23/19 11:25: COVID-19 (BETTY) Detected 12/23/19 20:44: PT 12.8, INR 1.0, D-Dimer Quant (PE/DVT) 0.98 H* 12/23/19 20:44: Blood Type O POSITIVE 12/23/19 20:44: Procalcitonin < 0.04 12/24/19 07:42: WBC 3.2 L, RBC 4.23 L, Hgb 13.3, Hct 41.1, MCV 97.2 H, MCH 31.4, MCHC 32.4, RDW Std Deviation 47.6 H, RDW Coeff of Jamar 13.3, Plt Count 84 L, MPV 10.2, Immature Gran % (Auto) 0.300, Neut % (Auto) 66.1, Lymph % (Auto) 26.0, [place] % (Auto) 7.3, Eos % (Auto) 0.0, Baso % (Auto) 0.3, Absolute Neuts (auto) 2.1, Absolute Lymphs (auto) 0.82 L, Nucleated RBC % 0, Differential Comment SCANNED 12/24/19 07:42: Sodium 140, Potassium 4.2, Chloride 110 H, Carbon Dioxide 25.0, Anion Gap 5, BUN 43 H, Creatinine 1.37 H, Estim Creat Clear Calc 45.88, Est GFR (MDRD) Af Amer 65, Est GFR (MDRD) Non-Af 53 L, BUN/Creatinine Ratio 31.4 H, Glucose 148 H, Calcium 9.4, Total Bilirubin 0.60, AST 25, ALT 14 L, Alkaline Phosphatase 60, Total Protein 6.6, Albumin 2.9 L, Globulin 3.7, Albumin/Globulin Ratio 0.8 L 12/24/19 07:42: Troponin I < 0.015 12/24/19 09:54: POC Glucose 155 H 12/24/19 11:36: POC Glucose 228 H Current Medications Acetaminophen (Acetaminophen 325 Mg Tablet) 650 mg PO Q6H PRN PRN PRN Reason: Pain Score 1-10/Temp > 100.7 F Last Admin: 12/24/19 12:49 Dose: 650 mg Documented by: Albuterol Sulfate (Albuterol Sulfate 8 Gm Inhaler (60 Puffs)) 2 puff INHALATION Q4H PRN PRN PRN Reason: WHEEZING Albuterol/Ipratropium (Ipratropium/Albuterol Sulfate 3 Ml Ampul.Neb) 3 ml INHALATION Q6HWA.RT [facility] Last Admin: 12/24/19 13:15 Dose: 3 ml Documented by: Amlodipine Besylate (Amlodipine 5 Mg Tablet) 5 mg PO BID [facility] Last Admin: 12/24/19 10:15 Dose: 5 mg Documented by: Aspirin (Aspirin E.C. 81 Mg Tablet) 81 mg PO DAILY [facility] Last Admin: 12/24/19 10:13 Dose: 81 mg Documented by: Dexamethasone Sodium Phosphate (Dexamethasone 10 Mg/Ml Vial) 6 mg IV DAILY [facility] Stop: 01/01/20 10:01 Last Admin: 12/24/19 10:12 Dose: 6 mg Documented by: Enoxaparin Sodium (Enoxaparin 100 Mg/Ml Syringe) 90 mg 1 mg/kg (90 mg) SC Q12 [facility] Last Admin: 12/24/19 10:15 Dose: 90 mg Documented by: Furosemide (Furosemide 40 Mg Tablet) 40 mg PO DAILY [facility] Last Admin: 12/24/19 10:13 Dose: 40 mg Documented by: Azithromycin 250 mg/ Dextrose 252.5 mls @ 250 mls/hr IV Q24 [facility] Last Infusion: 12/24/19 11:45 Dose: Infused Documented by: Ceftriaxone Sodium 2 gm/ (Sodium Chloride) 50 mls @ 100 mls/hr IV Q24 [facility] Remdesivir 100 mg/ Sodium (Chloride) 250 mls @ 125 mls/hr IV DAILY [facility]; Protocol Stop: 12/27/19 11:59 Last Admin: 12/24/19 12:36 Dose: 125 mls/hr Documented by: Sodium Chloride () 250 mls @ 15 mls/hr IV .[id number] PRN PRN Reason: Saline Flush Last Infusion: 12/23/19 21:50 Dose: 0 mls/hr Documented by: Sodium Chloride () 250 mls @ 15 mls/hr IV .[id number] PRN PRN Reason: Additional IVPB Infusion Insulin Human Lispro (Insulin Lispro 100 Unit/Ml Insuln.Pen) 0 unit SC TIDCM [facility]; Protocol Last Admin: 12/24/19 12:37 Dose: 2 units Documented by: Isosorbide Mononitrate (Isosorbide Mononitrate 60 Mg Tablet) 60 mg PO QHS [facility] Last Admin: 12/23/19 21:58 Dose: 60 mg Documented by: Losartan Potassium (Losartan Potassium 50 Mg Tablet) 50 mg PO BID [facility] Last Admin: 12/24/19 10:12 Dose: 50 mg Documented by: Metoprolol Tartrate (Metoprolol Tartrate 25 Mg Tablet) 12.5 mg PO BID [facility] Last Admin: 12/24/19 10:13 Dose: 12.5 mg Documented by: Ondansetron HCl (Ondansetron 4 Mg/2 Ml Vial) 4 mg IV Q8H PRN PRN PRN Reason: NAUSEA/VOMITING Oxycodone HCl (Oxycodone 5 Mg Tablet) 5 mg PO Q4H PRN PRN PRN Reason: Pain Score 6-10 Pantoprazole Sodium (Pantoprazole Sodium 20 Mg Tablet) 20 mg PO BID [facility] Last Admin: 12/24/19 10:15 Dose: 20 mg Documented by: Pravastatin Sodium (Pravastatin 40 Mg Tablet) 40 mg PO QHS [facility] Last Admin: 12/23/19 21:58 Dose: 40 mg Documented by: Sertraline HCl (Sertraline 50 Mg Tablet) 25 mg PO QHS [facility] Last Admin: 12/23/19 21:58 Dose: 25 mg Documented by: Sodium Chloride (0.9% Saline Lock 10 Ml Syringe) 10 - 40 ml IV UD PRN PRN Reason: SALINE FLUSH Last Admin: 12/24/19 10:16 Dose: 10 ml Documented by: Tamsulosin HCl (Tamsulosin Hcl 0.4 Mg Capsule) 0.4 mg PO DAILY [facility] Last Admin: 12/24/19 10:13 Dose: 0.4 mg Documented by: STROKE Vital Signs/Narrative: Vital Signs Temp Pulse Resp BP Pulse Ox 12/24/19 13:15 119 H 16 12/24/19 12:42 36.4 C L 110 H 18 121/80 H 89 Medical Necessity - Tobacco Use Smoking Status: Former smoker Tobacco Use: Non-smoker Assessment/Plan All Active Problems (Last Reviewed 12/23/19 @ 16:[address] 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 Acute COVID-19 pneumonia: Patient unclear as to where he contracted it. dexamethasone started 12/22. Infectious disease will be on consultation. Remdesivir started 12/22 convalescent plasma ordered Advised that his spouse get checked. Elevated D-dimer, currently on weight based enoxaparin. 2. Possible pneumococcal pneumonia: Urine antigens for Streptococcus and Legionella negative. Check sputum culture if able. Continue with empiric ceftriaxone and azithromycin. The nurse in the emergency room contacted me saying that he unintentionally got an additional 100 mg of azithromycin today. PCT low, if cx negative 12/24, DC abx. 3. Acute hypoxic respiratory failure: Now placed on BiPAP. Secondary to above plus underlying COPD. Pulm following CTA if Cr continues to improve. 4. Acute kidney injury versus chronic kidney disease stage III: Improving Creatinine back in June 2018 was 1.2. Continue to hold his losartan, furosemide, ibuprofen. Given the COVID-19, will hold off on additional IV fluids at this time. 5. Hyperglycemia: No known history of diabetes. Signed scale insulin as his blood sugar was slightly high and may go higher with the dexamethasone. 6. VTE prophylaxis with enoxaparin 7. Advanced care planning: Discussed with the patient. Discussed CPR and intubation with the patient. He wishes to be full CODE STATUS at this time. Inpatient E&M: [id number] Subs Hosp L2
[2019-12-24 20:01] LABS: Bedside Glucose 175 mg/dL (70-110)
[2019-12-24] MEDS: Sertraline 50 MG Tablet 25 MG PO (20:45)
[2019-12-24] MEDS: Isosorbide Mononitrate 60 MG Tablet PO (20:45)
[2019-12-24] MEDS: Pravastatin 40 MG Tablet PO (20:45)
[2019-12-24] MEDS: oxyCODONE 5 MG Tablet PO (22:38)
[2019-12-25] VITALS (30 sets, daily range): BP systolic 101–128; BP diastolic 64–82; PULSE 63–131; RESP 12–25; TEMP 36.1–37.1; O2SAT 83–97
[2019-12-25 00:46] LABS: Bedside Glucose 177 mg/dL (70-110)
[2019-12-25] MEDS: Ipratropium/Albuterol Sulfate 3 ML AMPUL.NEB INHALATION ×3 (07:20→19:51)
[2019-12-25 08:00] LABS: Absolute Neutrophil Count 2.2 X10^3/uL (2.0-7.7); Hematocrit 40.6 % (40-54); Lymphocyte % 21.3 % (19-41); Mean Corpuscular Volume 96.7 fL (80-94); Mean Platelet Vol. 9.9 fl (6.2-12.0); Monocyte# 0.41 X10^3/uL; Monocyte% 12.5 % (0-10); NRBC Flagged by Analyzer 0 % (0-5); Neutrophil # 2.16 X10^3/uL (2.7-7.7); Neutrophil % 65.9 % (47-70); Platelet Count 101 K/mm3 (150-450); RBC Distribution Width CV 13.2 % (11.6-14.6); RBC Distribution Width SD 47.4 fl (35.1-43.9); White Blood Count 3.3 K/mm3 (4.4-11.0)
[2019-12-25 08:16] LABS: ALB/GLOB Ratio 0.8 RATIO (0.9-2.4); AST(SGOT) 28 U/L (15-37); Alanine Aminotransfer ALT/SGPT 14 U/L (16-61); Albumin, Serum 2.8 g/dL (3.2-5.0); Alkaline Phosphatase 55 U/L (45-117); Anion Gap 3 (5-15); BUN 45 mg/dL (7-18); BUN/Creat Ratio 36.3 RATIO (10-20); Calcium,Total 9.5 mg/dL (8.5-10.1); Chloride 112 mmol/L (98-107); Creatinine, Serum 1.24 mg/dL (0.70-1.30); EST Glomerular Filtration Rate 60 mL/min (>60); Est Glom Filt Rate - Afr Amer 73 mL/min (>60); Estimated Creatinine Clearance 50.69 ml/min; Globulin 3.5 g/dL (2.2-4.2); Glucose 123 mg/dL (74-106); Potassium 4.1 mmol/L (3.5-5.1); Protein, Total 6.3 g/dL (6.4-8.2); Sodium Level 142 mmol/L (136-145)
[2019-12-25] MEDS: dexAMETHasone 10 MG/ML Vial 6 MG IV (08:59)
[2019-12-25] MEDS: Losartan Potassium 50 MG Tablet PO ×2 (08:59→20:56)
[2019-12-25] MEDS: Aspirin E.C. 81 MG Tablet PO (09:00)
[2019-12-25] MEDS: amLODIPine 5 MG Tablet PO ×2 (09:01→20:57)
[2019-12-25] MEDS: Furosemide 40 MG Tablet PO (09:01)
[2019-12-25] MEDS: Metoprolol Tartrate 25 MG Tablet 12.5 MG PO (09:01)
[2019-12-25] MEDS: Pantoprazole Sodium 20 MG Tablet PO ×2 (09:01→20:57)
[2019-12-25] MEDS: Enoxaparin 100 MG/ML Syringe 90 MG SC ×2 (09:01→20:56)
[2019-12-25] MEDS: Acetaminophen 325 MG Tablet 650 MG PO (09:02)
[2019-12-25] MEDS: 0.9% Saline Lock 10 ML Syringe IV ×3 (09:02→22:03)
[2019-12-25 09:20] LABS: Bedside Glucose 113 mg/dL (70-110)
--- NOTE | 2019-12-25 09:20 | PCM.PN.PUL ---
Patient Problems: Active and Suspected Problems (Last Reviewed 12/23/19 @ 16:[address] Ilan Paulino, DO) Acute respiratory failure with hypoxia (Acute) Bilateral pneumonia (Acute) Sepsis (Acute) Elevated serum creatinine (Acute) COVID-19 (Acute) Subjective: Patient did okay overnight. Patient is having worsening oxygenation and did require BiPAP rescue for some of the evening. Patient reports he feels subjectively unchanged compared to previous. Patient is reporting a sore throat, but no nausea, vomiting or diarrhea. - Physical Exam Vitals/I&O's: Vital Signs Temp Pulse Resp BP Pulse Ox 36.4 C L 116 H 18 123/82 H 90 12/25/19 08:30 12/25/19 09:01 12/25/19 08:30 12/25/19 08:30 12/25/19 08:30 Oxygen Flow Rate (L/min) 15 Oxygen Delivery Method Nasal Cannula Weight: 95 kg Body Mass Index (BMI) 29.9 Intake and Output for Last 24 Hours 12/23/19 12/24/19 12/25/19 23:59 23:59 22:59 Intake Total 1546.25 / 1546.25 1732.5 / 1732.5 100 / 100 Output Total 150 / 150 1100 / 1100 300 / 300 Balance 1396.25 / 1396.25 632.5 / 632.5 -200 / -200 General: Alert, Oriented x3, Cooperative, - - Moderate conversational dyspnea. Appears more ill compared to yesterday. HEENT: Atraumatic, PERRLA, EOMI, Normocephalic, - - Scleral injection. Oral: Moist Mucosa, No Gingival or Mucosal Lesions/ Ulcerations Neck: Supple, No JVD, No Nodes, Trachea Midline Lungs: No rhonchi, No wheeze, Diminished, Rales - Bilateral Cardiovascular: Normal S1, Normal S2, No murmurs, Bradycardic, No rub noted, No Gallop Abdomen: Bowel Sounds Present, Soft, Non Tender, Non-Distended Extremities: No clubbing, No cyanosis, No edema, Capillary Refill Less than 3 Seconds Skin: - - No change compared to previous Musculoskeletal: No Tenderness to Palpation of Joints or Extremities Lymphatic: No Cervical, Supraclavicular, or Inguinal Adenopathy Neurological: Cranial nerves II-XII grossly intact, Neuro grossly intact, Motor Exam 5/5 strength throughout Psych/Mental Status: Alert and oriented to time, place, person, mood and affect Microbiology Past 72 Hours 12/23/19 12:35 Urine Catheter - Catheter Urine Culture - Preliminary Culture exhibits no growth. 12/23/19 22:40 Urine, Random Legionella Antigen - Final 12/23/19 22:40 Urine, Random Streptococcus pneumoniae Antigen (M - Final Laboratory Results 12/24/19 07:42: Differential Comment SCANNED 12/24/19 09:54: POC Glucose 155 H 12/24/19 11:36: POC Glucose 228 H 12/24/19 17:35: POC Glucose 175 H 12/24/19 22:37: POC Glucose 177 H 12/25/19 07:37: WBC 3.3 L, RBC 4.20 L, Hgb 13.0, Hct 40.6, MCV 96.7 H, MCH 31.0, MCHC 32.0, RDW Std Deviation 47.4 H, RDW Coeff of Jamar 13.2, Plt Count 101 L, MPV 9.9, Immature Gran % (Auto) 0.300, Neut % (Auto) 65.9, Lymph % (Auto) 21.3, [place] % (Auto) 12.5 H, Eos % (Auto) 0.0, Baso % (Auto) 0.0, Absolute Neuts (auto) 2.2, Absolute Lymphs (auto) 0.70 L, Nucleated RBC % 0 12/25/19 07:37: Sodium 142, Potassium 4.1, Chloride 112 H, Carbon Dioxide 27.0, Anion Gap 3 L, BUN 45 H, Creatinine 1.24, Estim Creat Clear Calc 50.69, Est GFR (MDRD) Af Amer 73, Est GFR (MDRD) Non-Af 60, BUN/Creatinine Ratio 36.3 H, Glucose 123 H, Calcium 9.5, Total Bilirubin 0.50, AST 28, ALT 14 L, Alkaline Phosphatase 55, Total Protein 6.3 L, Albumin 2.8 L, Globulin 3.5, Albumin/Globulin Ratio 0.8 L 12/25/19 08:58: POC Glucose Pending Current Medications Acetaminophen (Acetaminophen 325 Mg Tablet) 650 mg PO Q6H PRN PRN PRN Reason: Pain Score 1-10/Temp > 100.7 F Last Admin: 12/25/19 09:02 Dose: 650 mg Documented by: Albuterol Sulfate (Albuterol Sulfate 8 Gm Inhaler (60 Puffs)) 2 puff INHALATION Q4H PRN PRN PRN Reason: WHEEZING Albuterol/Ipratropium (Ipratropium/Albuterol Sulfate 3 Ml Ampul.Neb) 3 ml INHALATION Q6HWA.RT [facility] Last Admin: 12/25/19 07:20 Dose: 3 ml Documented by: Amlodipine Besylate (Amlodipine 5 Mg Tablet) 5 mg PO BID [facility] Last Admin: 12/25/19 09:01 Dose: 5 mg Documented by: Aspirin (Aspirin E.C. 81 Mg Tablet) 81 mg PO DAILY [facility] Last Admin: 12/25/19 09:00 Dose: 81 mg Documented by: Dexamethasone Sodium Phosphate (Dexamethasone 10 Mg/Ml Vial) 6 mg IV DAILY [facility] Stop: 01/01/20 10:01 Last Admin: 12/25/19 08:59 Dose: 6 mg Documented by: Enoxaparin Sodium (Enoxaparin 100 Mg/Ml Syringe) 90 mg 1 mg/kg (90 mg) SC Q12 [facility] Last Admin: 12/25/19 09:01 Dose: 90 mg Documented by: Furosemide (Furosemide 40 Mg Tablet) 40 mg PO DAILY [facility] Last Admin: 12/25/19 09:01 Dose: 40 mg Documented by: Azithromycin 250 mg/ Dextrose 252.5 mls @ 250 mls/hr IV Q24 [facility] Last Infusion: 12/24/19 11:45 Dose: Infused Documented by: Ceftriaxone Sodium 2 gm/ (Sodium Chloride) 50 mls @ 100 mls/hr IV Q24 [facility] Last Admin: 12/25/19 09:07 Dose: 100 mls/hr Documented by: Remdesivir 100 mg/ Sodium (Chloride) 250 mls @ 125 mls/hr IV DAILY [facility]; Protocol Stop: 12/27/19 11:59 Last Infusion: 12/24/19 15:22 Dose: Infused Documented by: Sodium Chloride () 250 mls @ 15 mls/hr IV .[id number] PRN PRN Reason: Saline Flush Last Infusion: 12/23/19 21:50 Dose: 0 mls/hr Documented by: Sodium Chloride () 250 mls @ 15 mls/hr IV .[id number] PRN PRN Reason: Additional IVPB Infusion Insulin Human Lispro (Insulin Lispro 100 Unit/Ml Insuln.Pen) 0 unit SC TIDCM [facility]; Protocol Last Admin: 12/25/19 08:58 Dose: Not Given Documented by: Isosorbide Mononitrate (Isosorbide Mononitrate 60 Mg Tablet) 60 mg PO QHS [facility] Last Admin: 12/24/19 20:45 Dose: 60 mg Documented by: Losartan Potassium (Losartan Potassium 50 Mg Tablet) 50 mg PO BID [facility] Last Admin: 12/25/19 08:59 Dose: 50 mg Documented by: Metoprolol Tartrate (Metoprolol Tartrate 25 Mg Tablet) 12.5 mg PO BID [facility] Last Admin: 12/25/19 09:01 Dose: 12.5 mg Documented by: Ondansetron HCl (Ondansetron 4 Mg/2 Ml Vial) 4 mg IV Q8H PRN PRN PRN Reason: NAUSEA/VOMITING Oxycodone HCl (Oxycodone 5 Mg Tablet) 5 mg PO Q4H PRN PRN PRN Reason: Pain Score 6-10 Last Admin: 12/24/19 22:38 Dose: 5 mg Documented by: Pantoprazole Sodium (Pantoprazole Sodium 20 Mg Tablet) 20 mg PO BID [facility] Last Admin: 12/25/19 09:01 Dose: 20 mg Documented by: Phenol/Menthol (Phenol/Sodium Phenolate 180ml) 3 spray MM Q2H PRN PRN PRN Reason: SORE THROAT Pravastatin Sodium (Pravastatin 40 Mg Tablet) 40 mg PO QHS [facility] Last Admin: 12/24/19 20:45 Dose: 40 mg Documented by: Sertraline HCl (Sertraline 50 Mg Tablet) 25 mg PO QHS [facility] Last Admin: 12/24/19 20:45 Dose: 25 mg Documented by: Sodium Chloride (0.9% Saline Lock 10 Ml Syringe) 10 - 40 ml IV UD PRN PRN Reason: SALINE FLUSH Last Admin: 12/25/19 09:02 Dose: 10 ml Documented by: Tamsulosin HCl (Tamsulosin Hcl 0.4 Mg Capsule) 0.4 mg PO DAILY [facility] Last Admin: 12/24/19 10:13 Dose: 0.4 mg Documented by: Medical Necessity - Tobacco Use Smoking Status: Former smoker Tobacco Use: Non-smoker Assessment/Plan All Active Problems (Last Reviewed 12/23/19 @ 16:[address] 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 Remdesivir, convalescent serum, Decadron and anticoagulation per ID 2. Hold on transition to 10 a inhibitor 3. BiPAP rescue as necessary 4. Monitor body weight with diuretic challenge as necessary 5. Wean oxygen as tolerated 6. Significant concern for respiratory decompensation in the next 24 to 48 hours IMPRESSIONS: 1. Acute hypoxic respiratory failure Multiple confounding etiologies. Patient does have acute COVID-19. There is a possibility the patient has a superinfection, but procalcitonin was low. Patient likely has an element of pulmonary hypertension secondary to noncompliance with supplemental oxygen previously. Patient has a history of COPD, but severity is unclear. Patient has been placed on remdesivir, convalescent serum, Decadron and anticoagulation by infectious disease. Possibly discontinue systemic antibiotics if culture negative at 48 hours. Concern the patient is going to continue to progress. BiPAP rescue for now, but cannot exclude the need for intubation moving forward. 2. Acute kidney injury versus CKD stage III Improving. Unclear baseline status. Patient appears to be improving with stabilization of hemodynamics and holding of baseline antihypertensives. Cannot exclude an element of ATN secondary to hypoxia. Agree with holding of ARB and diuretic for now. Will need to watch fluid status closely as patient does have pulmonary hypertension, which will be very fluid responsive. 3. Hyperglycemia Patient with elevated blood sugar on presentation. Patient has been placed on Decadron. Will need to follow this closely as steroids will likely exacerbate underlying condition. Cannot exclude the need for basal insulin with higher sliding scale coverage. We will increase sliding scale given highly variable blood sugars 4. Advanced age/obesity/history of lung resection/depression/GERD/hypertension Complicates care, management, recovery and prognosis. Some antihypertensives have been held secondary to renal function. We will continue to monitor closely. Okay to continue medications for depression and GERD. Monitor for GI complications given concomitant steroids with anticoagulation. Inpatient E&M: [id number] [facility] L3
[2019-12-25] MEDS: Insulin Lispro 100 UNIT/ML INSULN.PEN SC (12:06)
--- NOTE | 2019-12-25 13:27 | PN_ITS ---
Patient Problems: Active and Suspected Problems (Last Reviewed 12/23/19 @ 16:[address] Ilan Paulino, DO) Acute respiratory failure with hypoxia (Acute) Bilateral pneumonia (Acute) Sepsis (Acute) Elevated serum creatinine (Acute) COVID-19 (Acute) Reason for Visit: COVID-19 Subjective: Breathing well on NC despite sats ranging from 84-90%. Noted PVCs on telemetry. Vitals/I&O's: Vital Signs Temp Pulse Resp BP Pulse Ox 37.1 C 63 19 H 111/74 94 12/25/19 12:15 12/25/19 12:15 12/25/19 12:15 12/25/19 12:15 12/25/19 12:15 Oxygen Flow Rate (L/min) 15 Oxygen Delivery Method Bi-pap Weight: 95 kg Body Mass Index (BMI) 29.9 Intake and Output for Last 24 Hours 12/23/19 12/24/19 12/25/19 23:59 23:59 22:59 Intake Total 1546.25 / 1546.25 1732.5 / 1732.5 652.5 / 652.5 Output Total 150 / 150 1100 / 1100 600 / 600 Balance 1396.25 / 1396.25 632.5 / 632.5 52.5 / 52.5 General: Alert, No apparent distress, - - no respiratory distress. no conversational dyspnea. Neck: No Nodes, Thyroid Normal Size and Texture Lungs: Clear to auscultation, Normal air movement, No rhonchi, No wheeze Cardiovascular: Regular rate, Regular Rhythm, Normal S1, Normal S2 Psych/Mental Status: Normal Affect, Appropriate Microbiology Past 72 Hours 12/23/19 12:35 Urine Catheter - Catheter Urine Culture - Final Culture exhibits no growth. 12/23/19 11:05 Blood Culture (Wb) - Anticubital Left Blood Culture - Preliminary No growth in 48 hours. 12/23/19 11:05 Blood Culture (Wb) - Anticubital Left Blood Culture - Preliminary No growth in 48 hours. 12/23/19 22:40 Urine, Random Legionella Antigen - Final 12/23/19 22:40 Urine, Random Streptococcus pneumoniae Antigen (M - Final Laboratory Results 12/24/19 17:35: POC Glucose 175 H 12/24/19 22:37: POC Glucose 177 H 12/25/19 07:37: WBC 3.3 L, RBC 4.20 L, Hgb 13.0, Hct 40.6, MCV 96.7 H, MCH 31.0, MCHC 32.0, RDW Std Deviation 47.4 H, RDW Coeff of Jamar 13.2, Plt Count 101 L, MPV 9.9, Immature Gran % (Auto) 0.300, Neut % (Auto) 65.9, Lymph % (Auto) 21.3, [place] % (Auto) 12.5 H, Eos % (Auto) 0.0, Baso % (Auto) 0.0, Absolute Neuts (auto) 2.2, Absolute Lymphs (auto) 0.70 L, Nucleated RBC % 0 12/25/19 07:37: Sodium 142, Potassium 4.1, Chloride 112 H, Carbon Dioxide 27.0, Anion Gap 3 L, BUN 45 H, Creatinine 1.24, Estim Creat Clear Calc 50.69, Est GFR (MDRD) Af Amer 73, Est GFR (MDRD) Non-Af 60, BUN/Creatinine Ratio 36.3 H, Glucose 123 H, Calcium 9.5, Total Bilirubin 0.50, AST 28, ALT 14 L, Alkaline Phosphatase 55, Total Protein 6.3 L, Albumin 2.8 L, Globulin 3.5, Albumin/Globulin Ratio 0.8 L 12/25/19 08:58: POC Glucose 113 H Current Medications Acetaminophen (Acetaminophen 325 Mg Tablet) 650 mg PO Q6H PRN PRN PRN Reason: Pain Score 1-10/Temp > 100.7 F Last Admin: 12/25/19 09:02 Dose: 650 mg Documented by: Albuterol Sulfate (Albuterol Sulfate 8 Gm Inhaler (60 Puffs)) 2 puff INHALATION Q4H PRN PRN PRN Reason: WHEEZING Albuterol/Ipratropium (Ipratropium/Albuterol Sulfate 3 Ml Ampul.Neb) 3 ml INHALATION Q6HWA.RT [facility] Last Admin: 12/25/19 07:20 Dose: 3 ml Documented by: Amlodipine Besylate (Amlodipine 5 Mg Tablet) 5 mg PO BID [facility] Last Admin: 12/25/19 09:01 Dose: 5 mg Documented by: Aspirin (Aspirin E.C. 81 Mg Tablet) 81 mg PO DAILY [facility] Last Admin: 12/25/19 09:00 Dose: 81 mg Documented by: Dexamethasone Sodium Phosphate (Dexamethasone 10 Mg/Ml Vial) 6 mg IV DAILY [facility] Stop: 01/01/20 10:01 Last Admin: 12/25/19 08:59 Dose: 6 mg Documented by: Enoxaparin Sodium (Enoxaparin 100 Mg/Ml Syringe) 90 mg 1 mg/kg (90 mg) SC Q12 [facility] Last Admin: 12/25/19 09:01 Dose: 90 mg Documented by: Furosemide (Furosemide 40 Mg Tablet) 40 mg PO DAILY [facility] Last Admin: 12/25/19 09:01 Dose: 40 mg Documented by: Azithromycin 250 mg/ Dextrose 252.5 mls @ 250 mls/hr IV Q24 [facility] Last Infusion: 12/25/19 11:15 Dose: Infused Documented by: Ceftriaxone Sodium 2 gm/ (Sodium Chloride) 50 mls @ 100 mls/hr IV Q24 [facility] Last Infusion: 12/25/19 09:40 Dose: Infused Documented by: Remdesivir 100 mg/ Sodium (Chloride) 250 mls @ 125 mls/hr IV DAILY [facility]; Protocol Stop: 12/27/19 11:59 Last Admin: 12/25/19 12:09 Dose: 125 mls/hr Documented by: Sodium Chloride () 250 mls @ 15 mls/hr IV .[id number] PRN PRN Reason: Saline Flush Last Infusion: 12/23/19 21:50 Dose: 0 mls/hr Documented by: Sodium Chloride () 250 mls @ 15 mls/hr IV .[id number] PRN PRN Reason: Additional IVPB Infusion Insulin Human Lispro (Insulin Lispro 100 Unit/Ml Insuln.Pen) 0 unit SC TIDCM [facility]; Protocol Last Admin: 12/25/19 12:06 Dose: 2 units Documented by: Isosorbide Mononitrate (Isosorbide Mononitrate 60 Mg Tablet) 60 mg PO QHS [facility] Last Admin: 12/24/19 20:45 Dose: 60 mg Documented by: Losartan Potassium (Losartan Potassium 50 Mg Tablet) 50 mg PO BID [facility] Last Admin: 12/25/19 08:59 Dose: 50 mg Documented by: Metoprolol Tartrate (Metoprolol Tartrate 25 Mg Tablet) 12.5 mg PO BID [facility] Last Admin: 12/25/19 09:01 Dose: 12.5 mg Documented by: Ondansetron HCl (Ondansetron 4 Mg/2 Ml Vial) 4 mg IV Q8H PRN PRN PRN Reason: NAUSEA/VOMITING Oxycodone HCl (Oxycodone 5 Mg Tablet) 5 mg PO Q4H PRN PRN PRN Reason: Pain Score 6-10 Last Admin: 12/24/19 22:38 Dose: 5 mg Documented by: Pantoprazole Sodium (Pantoprazole Sodium 20 Mg Tablet) 20 mg PO BID [facility] Last Admin: 12/25/19 09:01 Dose: 20 mg Documented by: Phenol/Menthol (Phenol/Sodium Phenolate 180ml) 3 spray MM Q2H PRN PRN PRN Reason: SORE THROAT Pravastatin Sodium (Pravastatin 40 Mg Tablet) 40 mg PO QHS [facility] Last Admin: 12/24/19 20:45 Dose: 40 mg Documented by: Sertraline HCl (Sertraline 50 Mg Tablet) 25 mg PO QHS [facility] Last Admin: 12/24/19 20:45 Dose: 25 mg Documented by: Sodium Chloride (0.9% Saline Lock 10 Ml Syringe) 10 - 40 ml IV UD PRN PRN Reason: SALINE FLUSH Last Admin: 12/25/19 09:02 Dose: 10 ml Documented by: Tamsulosin HCl (Tamsulosin Hcl 0.4 Mg Capsule) 0.4 mg PO DAILY [facility] Last Admin: 12/24/19 10:13 Dose: 0.4 mg Documented by: STROKE Vital Signs/Narrative: Vital Signs Temp Pulse Resp BP Pulse Ox 12/25/19 12:15 37.1 C 63 19 H 111/74 94 12/25/19 12:14 93 12/25/19 12:11 83 Medical Necessity - Tobacco Use Smoking Status: Former smoker Tobacco Use: Non-smoker Assessment/Plan All Active Problems (Last Reviewed 12/23/19 @ 16:[address] 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 Acute COVID-19 pneumonia: * Patient unclear as to where he contracted it. * dexamethasone started 12/22. Infectious disease will be on consultation. * Remdesivir started 12/22 * convalescent plasma ordered * Advised that his spouse get checked. * Elevated D-dimer, currently on weight based enoxaparin. 2. Possible pneumococcal pneumonia: * Urine antigens for Streptococcus and Legionella negative. * Check sputum culture if able. * Continue with empiric ceftriaxone and azithromycin. The nurse in the emergency room contacted me saying that he unintentionally got an additional 100 mg of azithromycin * PCT low, if cx negative 12/24, DC abx. 3. Acute hypoxic respiratory failure: * Placed on BiPAP. Tolerating high-flow oxygen. Secondary to above plus underlying COPD. * Pulm following * check CTA chest. If negative for PE, then change enoxaparin. 4. Acute kidney injury versus chronic kidney disease stage III: * Improved * Creatinine back in June 2018 was 1.2. * Continue to hold his losartan, furosemide, ibuprofen. * Given the COVID-19, will hold off on additional IV fluids at this time. 5. Hyperglycemia: No known history of diabetes. Signed scale insulin as his blood sugar was slightly high and may go higher with the dexamethasone. 6. VTE prophylaxis with enoxaparin 7. Advanced care planning: Discussed with the patient. Discussed CPR and intubation with the patient. He wishes to be full CODE STATUS at this time. Inpatient E&M: 43479 Subs Hosp L2
--- NOTE | 2019-12-25 13:34 | CT_ITS ---
STUDY: CTA CHEST REASON FOR EXAM: Male, 79 years old. Increasing shortness of breath, viral infection RADIATION DOSAGE (If Supplied By Facility): CTDIvol = ( 20.6 ) mGy, DLP = ( 548.81 ) mGycm TECHNIQUE: The examination was performed with the intravenous administration of IV 100mL Isovue-370. Post-processing of the angiographic images was performed, with multiplanar reformation and 3D reconstruction. Individualized dose optimization techniques were used for this CT. COMPARISON: 15 December 2017 FINDINGS: There is no acute or chronic pulmonary embolism. There is mild pulmonary arterial hypertension. Aorta is of normal caliber. Lungs are severely emphysematous with scattered regional groundglass opacities. There are scattered calcified stable benign granulomata in the right lung. There is no pneumothorax, pulmonary edema or pleural effusions. Mediastinal contents are normal. There is sternotomy and coronary bypass grafting with severe cahto coronary artery disease. Right ventricle and right atrium are moderately enlarged. Left ventricle is normal. Left atrium is moderately enlarged. Osseous structures are intact. Abdominal structures are unremarkable. CT/CTA Chest W/WO Contrast IMPRESSION: 1. No pulmonary embolism 2. Severe emphysema, viral infection. 3. Mild pulmonary arterial hypertension, right heart enlargement. Electronically Signed: Zach Kaplan, at 17:34 EST Tel , Service support ,
--- NOTE | 2019-12-25 14:32 | EKG12_ITS ---
Test Reason : AFIB RVR Blood Pressure : / mmHG Vent. Rate : 129 BPM Atrial Rate : 258 BPM P-R Int : 000 ms QRS Dur : 112 ms QT Int : 322 ms P-R-T Axes : 000 -23 218 degrees QTc Int : 471 ms Atrial flutter with variable A-V block with premature ventricular or aberrantly conducted complexes Low voltage QRS (Limb Leads) Poor R wave progression Abnormal ECG Confirmed by STACEY GARCIA, REGINE ([id number]), makeup editor GABRIELLA IBARRA ([id number]) on 01/02/2020 2:40:19 PM Referred By: KAYCE Confirmed By:REGINE IBARRA MD
[2019-12-25 15:11] LABS: Bedside Glucose 174 mg/dL (70-110)
[2019-12-25] MEDS: Metoprolol Tartrate 5 MG/5 ML Vial IV ×2 (15:32→22:03)
[2019-12-25 17:10] LABS: Bedside Glucose 126 mg/dL (70-110)
[2019-12-25] MEDS: Tamsulosin HCl 0.4 MG Capsule PO (17:18)
[2019-12-25] MEDS: Pravastatin 40 MG Tablet PO (20:56)
[2019-12-25] MEDS: Isosorbide Mononitrate 60 MG Tablet PO (20:57)
[2019-12-25] MEDS: Sertraline 50 MG Tablet 25 MG PO (20:57)
[2019-12-25] MEDS: Metoprolol Tartrate 50 MG Tablet PO (20:57)
[2019-12-25] MEDS: Phenol/Sodium Phenolate 180ML 3 SPRAY MM (21:01)
[2019-12-26] VITALS (19 sets, daily range): BP systolic 112–135; BP diastolic 66–84; PULSE 48–130; RESP 12–23; TEMP 36.4–36.5; O2SAT 90–96
[2019-12-26 00:11] LABS: Bedside Glucose 141 mg/dL (70-110)
[2019-12-26] MEDS: Phenol/Sodium Phenolate 180ML 3 SPRAY MM ×3 (02:57→21:01)
[2019-12-26 06:59] LABS: Absolute Lymphocyte Count 0.65 X10^3/uL (0.83-4.51); Absolute Neutrophil Count 2.7 X10^3/uL (2.0-7.7); Basophil# 0.01 X10^3/uL; Basophil% 0.3 % (0-1); Hematocrit 40.6 % (40-54); Hemoglobin 13.1 g/dL (13.0-16.5); Lymphocyte # 0.65 X10^3/ul (4.0); Lymphocyte % 16.8 % (19-41); Mean Corp Hgb Conc 32.3 g/dL (32-36); Mean Corpuscular Hgb 31.2 pg (27.0-32.0); Mean Corpuscular Volume 96.7 fL (80-94); Mean Platelet Vol. 9.9 fl (6.2-12.0); Monocyte# 0.51 X10^3/uL; Monocyte% 13.1 % (0-10); NRBC Flagged by Analyzer 0 % (0-5); Neutrophil % 69.5 % (47-70); POSITIVE MORPHOLOGY YES; Platelet Count 118 K/mm3 (150-450); RBC Distribution Width CV 13.3 % (11.6-14.6); RBC Distribution Width SD 47.8 fl (35.1-43.9); White Blood Count 3.9 K/mm3 (4.4-11.0)
[2019-12-26 07:32] LABS: Differential Indicated SCAN CRITERIA MET
[2019-12-26 07:33] LABS: ALB/GLOB Ratio 0.8 RATIO (0.9-2.4); AST(SGOT) 33 U/L (15-37); Alanine Aminotransfer ALT/SGPT 19 U/L (16-61); Albumin, Serum 2.9 g/dL (3.2-5.0); Alkaline Phosphatase 52 U/L (45-117); Anion Gap 6 (5-15); BUN 46 mg/dL (7-18); BUN/Creat Ratio 35.7 RATIO (10-20); Calcium,Total 9.2 mg/dL (8.5-10.1); Chloride 108 mmol/L (98-107); Creatinine, Serum 1.29 mg/dL (0.70-1.30); Differential Comment SCANNED; EST Glomerular Filtration Rate 57 mL/min (>60); Est Glom Filt Rate - Afr Amer 69 mL/min (>60); Estimated Creatinine Clearance 48.73 ml/min; Globulin 3.6 g/dL (2.2-4.2); Glucose 109 mg/dL (74-106); Protein, Total 6.5 g/dL (6.4-8.2); Sodium Level 142 mmol/L (136-145)
[2019-12-26] MEDS: Ipratropium/Albuterol Sulfate 3 ML AMPUL.NEB INHALATION ×3 (07:52→19:17)
[2019-12-26] MEDS: 0.9% Saline Lock 10 ML Syringe IV ×2 (08:12→18:37)
[2019-12-26] MEDS: Losartan Potassium 50 MG Tablet PO ×2 (08:33→21:02)
[2019-12-26] MEDS: Furosemide 40 MG Tablet PO (08:33)
[2019-12-26] MEDS: Tamsulosin HCl 0.4 MG Capsule PO (08:33)
[2019-12-26] MEDS: Aspirin E.C. 81 MG Tablet PO (08:33)
[2019-12-26] MEDS: amLODIPine 5 MG Tablet PO ×2 (08:33→21:01)
[2019-12-26] MEDS: Enoxaparin 100 MG/ML Syringe 90 MG SC ×2 (08:34→21:02)
[2019-12-26] MEDS: Metoprolol Tartrate 50 MG Tablet PO ×2 (08:34→21:01)
[2019-12-26] MEDS: dexAMETHasone 10 MG/ML Vial 6 MG IV (08:34)
[2019-12-26] MEDS: Pantoprazole Sodium 20 MG Tablet PO ×2 (08:35→21:01)
[2019-12-26 09:26] LABS: Bedside Glucose 100 mg/dL (70-110)
[2019-12-26 12:56] LABS: Bedside Glucose 121 mg/dL (70-110)
--- NOTE | 2019-12-26 13:58 | PCM.PN.HOSP ---
Patient Problems: Active and Suspected Problems (Last Reviewed 12/23/19 @ 16:[address] Ilan Paulino, DO) Acute respiratory failure with hypoxia (Acute) Bilateral pneumonia (Acute) Sepsis (Acute) Elevated serum creatinine (Acute) COVID-19 (Acute) Subjective: Patient seen and examined. Still complains of shortness of breath. He remains on 15 L of oxygen. Review of symptoms otherwise negative. Labs and vitals reviewed. Vitals/I&O's: Vital Signs Temp Pulse Resp BP Pulse Ox 97.5 F L 85 12 115/66 92 12/26/19 10:30 12/26/19 13:46 12/26/19 13:46 12/26/19 10:30 12/26/19 10:30 Oxygen Flow Rate (L/min) 15 Oxygen Delivery Method Nasal Cannula Weight: 208 lb 12.444 oz Body Mass Index (BMI) 29.9 Intake and Output for Last 24 Hours 12/25/19 12/25/19 12/26/19 00:59 23:59 23:59 Intake Total 602.5 / 602.5 Output Total 250 / 250 Balance 352.5 / 352.5 General: Alert, Oriented x3, Cooperative, No apparent distress HEENT: Atraumatic, PERRLA, EOMI, Normocephalic Oral: Moist Mucosa Neck: Supple, No JVD, Negative Carotid Bruits Lungs: - - diminished breath sounds bibasally, no wheezes or crackles. on 13L of oxygen Cardiovascular: Regular rate, Regular Rhythm, Normal S1, Normal S2, No murmurs Abdomen: Bowel Sounds Present, Soft, Non Tender Extremities: No clubbing, No cyanosis, No edema, Capillary Refill Less than 3 Seconds Skin: No rashes, No breakdown Musculoskeletal: No Tenderness to Palpation of Joints or Extremities Lymphatic: No Cervical, Supraclavicular, or Inguinal Adenopathy Neurological: Cranial nerves II-XII grossly intact, Neuro grossly intact, Motor Exam 5/5 strength throughout Psych/Mental Status: Normal Affect, Appropriate, Alert and oriented to time, place, person, mood and affect Microbiology Past 72 Hours 12/23/19 12:35 Urine Catheter - Catheter Urine Culture - Final Culture exhibits no growth. 12/23/19 11:05 Blood Culture (Wb) - Anticubital Left Blood Culture - Preliminary No growth in 48 hours. 12/23/19 11:05 Blood Culture (Wb) - Anticubital Left Blood Culture - Preliminary No growth in 48 hours. 12/23/19 22:40 Urine, Random Legionella Antigen - Final 12/23/19 22:40 Urine, Random Streptococcus pneumoniae Antigen (M - Final Laboratory Results 12/25/19 12:03: POC Glucose 174 H 12/25/19 17:00: POC Glucose 126 H 12/25/19 21:00: POC Glucose 141 H 12/26/19 06:32: WBC 3.9 L, RBC 4.20 L, Hgb 13.1, Hct 40.6, MCV 96.7 H, MCH 31.2, MCHC 32.3, RDW Std Deviation 47.8 H, RDW Coeff of Jamar 13.3, Plt Count 118 L, MPV 9.9, Immature Gran % (Auto) 0.300, Neut % (Auto) 69.5, Lymph % (Auto) 16.8 L, [place] % (Auto) 13.1 H, Eos % (Auto) 0.0, Baso % (Auto) 0.3, Absolute Neuts (auto) 2.7, Absolute Lymphs (auto) 0.65 L, Nucleated RBC % 0, Differential Comment SCANNED 12/26/19 06:32: Sodium 142, Potassium 4.0, Chloride 108 H, Carbon Dioxide 28.0, Anion Gap 6, BUN 46 H, Creatinine 1.29, Estim Creat Clear Calc 48.73, Est GFR (MDRD) Af Amer 69, Est GFR (MDRD) Non-Af 57 L, BUN/Creatinine Ratio 35.7 H, Glucose 109 H, Calcium 9.2, Total Bilirubin 0.50, AST 33, ALT 19, Alkaline Phosphatase 52, Total Protein 6.5, Albumin 2.9 L, Globulin 3.6, Albumin/Globulin Ratio 0.8 L 12/26/19 08:20: POC Glucose 100 12/26/19 12:46: POC Glucose 121 H Diagnostic Data Chest X-Ray 12/23/19 12:20 IMPRESSION: New wedge-shaped peripheral consolidation in the right midlung with mild increased markings at the lung bases and blunting of both costophrenic angles. Pneumonitis associated with Covid 19 should be ruled out. Electronically Signed: Jake Bazzi, at 12:43 EDT , Service support , Chest CTA 12/25/19 13:34 IMPRESSION: 1. No pulmonary embolism 2. Severe emphysema, viral infection. 3. Mild pulmonary arterial hypertension, right heart enlargement. Electronically Signed: Zach Eusebio, at 17:34 EST Tel , Service support , Current Medications Acetaminophen (Acetaminophen 325 Mg Tablet) 650 mg PO Q6H PRN PRN PRN Reason: Pain Score 1-10/Temp > 100.7 F Last Admin: 12/25/19 09:02 Dose: 650 mg Documented by: Albuterol Sulfate (Albuterol Sulfate 8 Gm Inhaler (60 Puffs)) 2 puff INHALATION Q4H PRN PRN PRN Reason: WHEEZING Albuterol/Ipratropium (Ipratropium/Albuterol Sulfate 3 Ml Ampul.Neb) 3 ml INHALATION Q6HWA.RT [facility] Last Admin: 12/26/19 13:44 Dose: 3 ml Documented by: Amlodipine Besylate (Amlodipine 5 Mg Tablet) 5 mg PO BID [facility] Last Admin: 12/26/19 08:33 Dose: 5 mg Documented by: Aspirin (Aspirin E.C. 81 Mg Tablet) 81 mg PO DAILY [facility] Last Admin: 12/26/19 08:33 Dose: 81 mg Documented by: Dexamethasone (Dexamethasone 4 Mg Tablet) 6 mg PO DAILY@0800 [facility] Stop: 01/01/20 08:01 Enoxaparin Sodium (Enoxaparin 100 Mg/Ml Syringe) 90 mg 1 mg/kg (90 mg) SC Q12 [facility] Last Admin: 12/26/19 08:34 Dose: 90 mg Documented by: Furosemide (Furosemide 40 Mg Tablet) 40 mg PO DAILY [facility] Last Admin: 12/26/19 08:33 Dose: 40 mg Documented by: Remdesivir 100 mg/ Sodium (Chloride) 250 mls @ 125 mls/hr IV DAILY [facility]; Protocol Stop: 12/27/19 11:59 Last Infusion: 12/26/19 12:46 Dose: Infused Documented by: Sodium Chloride () 250 mls @ 15 mls/hr IV .[id number] PRN PRN Reason: Saline Flush Last Infusion: 12/26/19 12:46 Dose: 15 mls/hr Documented by: Sodium Chloride () 250 mls @ 15 mls/hr IV .[id number] PRN PRN Reason: Additional IVPB Infusion Insulin Human Lispro (Insulin Lispro 100 Unit/Ml Insuln.Pen) 0 unit SC TIDCM [facility]; Protocol Last Admin: 12/26/19 13:11 Dose: Not Given Documented by: Isosorbide Mononitrate (Isosorbide Mononitrate 60 Mg Tablet) 60 mg PO QHS [facility] Last Admin: 12/25/19 20:57 Dose: 60 mg Documented by: Losartan Potassium (Losartan Potassium 50 Mg Tablet) 50 mg PO BID [facility] Last Admin: 12/26/19 08:33 Dose: 50 mg Documented by: Metoprolol Tartrate (Metoprolol Tartrate 50 Mg Tablet) 50 mg PO BID [facility] Last Admin: 12/26/19 08:34 Dose: 50 mg Documented by: Metoprolol Tartrate (Metoprolol Tartrate 5 Mg/5 Ml Vial) 5 mg IV Q6H PRN PRN PRN Reason: HR > 120 Last Admin: 12/25/19 22:03 Dose: 5 mg Documented by: Ondansetron HCl (Ondansetron 4 Mg/2 Ml Vial) 4 mg IV Q8H PRN PRN PRN Reason: NAUSEA/VOMITING Oxycodone HCl (Oxycodone 5 Mg Tablet) 5 mg PO Q4H PRN PRN PRN Reason: Pain Score 6-10 Last Admin: 12/24/19 22:38 Dose: 5 mg Documented by: Pantoprazole Sodium (Pantoprazole Sodium 20 Mg Tablet) 20 mg PO BID [facility] Last Admin: 12/26/19 08:35 Dose: 20 mg Documented by: Phenol/Menthol (Phenol/Sodium Phenolate 180ml) 3 spray MM Q2H PRN PRN PRN Reason: SORE THROAT Last Admin: 12/26/19 08:32 Dose: 3 spray Documented by: Pravastatin Sodium (Pravastatin 40 Mg Tablet) 40 mg PO QHS [facility] Last Admin: 12/25/19 20:56 Dose: 40 mg Documented by: Sertraline HCl ([facility]ine 50 Mg Tablet) [facility] Last Admin: 12/25/19 20:57 Dose: 25 mg Documented by: Sodium Chloride (0.9% Saline Lock 10 Ml Syringe) 10 - 40 ml IV UD PRN PRN Reason: SALINE FLUSH Last Admin: 12/26/19 08:12 Dose: 10 ml Documented by: Tamsulosin HCl (Tamsulosin Hcl 0.4 Mg Capsule) 0.4 mg PO DAILY [facility] Last Admin: 12/26/19 08:33 Dose: 0.4 mg Documented by: STROKE Vital Signs/Narrative: Vital Signs Temp Pulse Resp BP Pulse Ox 12/26/19 13:46 85 12 12/26/19 10:30 97.5 F L 64 18 115/66 92 Medical Necessity - Tobacco Use Smoking Status: Former smoker Tobacco Use: Non-smoker Assessment/Plan All Active Problems (Last Reviewed 12/23/19 @ 16:[address] 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 on remdesivir and dexamethasone has received convalescent plasma pulmonology and ID on board # COVID 19 pneumonia on IV ceftriaxone and azithromycin. blood cultures negative urine for strep and Legionella # CKD 3 Cr is 1.29 and stable DVT prophylaxis: lovenox Inpatient E&M: [id number] [facility] Hosp L3
--- NOTE | 2019-12-26 14:06 | PCM.PN.PUL ---
Patient Problems: Active and Suspected Problems (Last Reviewed 12/23/19 @ 16:[address] Ilan Paulino, DO) Acute respiratory failure with hypoxia (Acute) Bilateral pneumonia (Acute) Sepsis (Acute) Elevated serum creatinine (Acute) COVID-19 (Acute) Subjective: The patient was seen and examined at the bedside this morning. Events from the last 24 hours have been reviewed. The patient is currently afebrile, hemodynamically stable and maintaining appropriate oxygen saturations on 15 L/min via nasal cannula. The patient is currently documented to be overall net +2.6 L for the hospital admission. Objective: The patient's most recent lab work, culture data and imaging studies have all been personally reviewed. Surface echocardiogram from September 2019 revealed an ejection fraction of 55% and stage I diastolic dysfunction. Pulmonary artery systolic pressure was estimated to be 57 mmHg. Coronavirus PCR was positive on December 22. Strep and urine Legionella antigens were negative. Blood and urine cultures have shown no growth to date. - Physical Exam Vitals/I&O's: Vital Signs Temp Pulse Resp BP Pulse Ox 97.5 F L 85 12 115/66 92 12/26/19 10:30 12/26/19 13:46 12/26/19 13:46 12/26/19 10:30 12/26/19 10:30 Oxygen Flow Rate (L/min) 15 Oxygen Delivery Method Nasal Cannula Weight: 208 lb 12.444 oz Body Mass Index (BMI) 29.9 Intake and Output for Last 24 Hours 12/25/19 12/25/19 12/26/19 00:59 23:59 23:59 Intake Total 602.5 / 602.5 Output Total 250 / 250 Balance 352.5 / 352.5 General: Alert, Cooperative HEENT: Atraumatic, Normocephalic Oral: Moist Mucosa Neck: Supple, No Nodes, Trachea Midline Lungs: Diminished, Rales Cardiovascular: Regular rate, Regular Rhythm Abdomen: Bowel Sounds Present, Soft, Non Tender Extremities: No clubbing, No cyanosis, No edema Skin: No breakdown Musculoskeletal: No Tenderness to Palpation of Joints or Extremities Lymphatic: No Cervical, Supraclavicular, or Inguinal Adenopathy Neurological: Cranial nerves II-XII grossly intact, Neuro grossly intact Psych/Mental Status: Normal Affect, Appropriate Labs (Last 48 Hours) 12/24/19 12/24/19 12/25/19 17:35 22:37 07:37 WBC 3.3 L RBC 4.20 L Hgb 13.0 Hct 40.6 MCV 96.7 H MCH 31.0 MCHC 32.0 RDW Std Deviation 47.4 H RDW Coeff of Jamar 13.2 Plt Count 101 L MPV 9.9 Immature Gran % (Auto) 0.300 Neut % (Auto) 65.9 Lymph % (Auto) 21.3 White % (Auto) 12.5 H Eos % (Auto) 0.0 Baso % (Auto) 0.0 Absolute Neuts (auto) 2.2 Absolute Lymphs (auto) 0.70 L Nucleated RBC % 0 Differential Comment Sodium Potassium Chloride Carbon Dioxide Anion Gap BUN Creatinine Estim Creat Clear Calc Est GFR (MDRD) Af Amer Est GFR (MDRD) Non-Af BUN/Creatinine Ratio Glucose Calcium Total Bilirubin AST ALT Alkaline Phosphatase Total Protein Albumin Globulin Albumin/Globulin Ratio POC Glucose 175 H 177 H 12/25/19 12/25/19 12/25/19 07:37 08:58 12:03 WBC RBC Hgb Hct MCV MCH MCHC RDW Std Deviation RDW Coeff of Jamar Plt Count MPV Immature Gran % (Auto) Neut % (Auto) Lymph % (Auto) White % (Auto) Eos % (Auto) Baso % (Auto) Absolute Neuts (auto) Absolute Lymphs (auto) Nucleated RBC % Differential Comment Sodium 142 Potassium 4.1 Chloride 112 H Carbon Dioxide 27.0 Anion Gap 3 L BUN 45 H Creatinine 1.24 Estim Creat Clear Calc 50.69 Est GFR (MDRD) Af Amer 73 Est GFR (MDRD) Non-Af 60 BUN/Creatinine Ratio 36.3 H Glucose 123 H Calcium 9.5 Total Bilirubin 0.50 AST 28 ALT 14 L Alkaline Phosphatase 55 Total Protein 6.3 L Albumin 2.8 L Globulin 3.5 Albumin/Globulin Ratio 0.8 L POC Glucose 113 H 174 H 12/25/19 12/25/19 12/26/19 17:00 21:00 06:32 WBC 3.9 L RBC 4.20 L Hgb 13.1 Hct 40.6 MCV 96.7 H MCH 31.2 MCHC 32.3 RDW Std Deviation 47.8 H RDW Coeff of Jamar 13.3 Plt Count 118 L MPV 9.9 Immature Gran % (Auto) 0.300 Neut % (Auto) 69.5 Lymph % (Auto) 16.8 L White % (Auto) 13.1 H Eos % (Auto) 0.0 Baso % (Auto) 0.3 Absolute Neuts (auto) 2.7 Absolute Lymphs (auto) 0.65 L Nucleated RBC % 0 Differential Comment SCANNED Sodium Potassium Chloride Carbon Dioxide Anion Gap BUN Creatinine Estim Creat Clear Calc Est GFR (MDRD) Af Amer Est GFR (MDRD) Non-Af BUN/Creatinine Ratio Glucose Calcium Total Bilirubin AST ALT Alkaline Phosphatase Total Protein Albumin Globulin Albumin/Globulin Ratio POC Glucose 126 H 141 H 12/26/19 12/26/19 12/26/19 06:32 08:20 12:46 WBC RBC Hgb Hct MCV MCH MCHC RDW Std Deviation RDW Coeff of Jamar Plt Count MPV Immature Gran % (Auto) Neut % (Auto) Lymph % (Auto) White % (Auto) Eos % (Auto) Baso % (Auto) Absolute Neuts (auto) Absolute Lymphs (auto) Nucleated RBC % Differential Comment Sodium 142 Potassium 4.0 Chloride 108 H Carbon Dioxide 28.0 Anion Gap 6 BUN 46 H Creatinine 1.29 Estim Creat Clear Calc 48.73 Est GFR (MDRD) Af Amer 69 Est GFR (MDRD) Non-Af 57 L BUN/Creatinine Ratio 35.7 H Glucose 109 H Calcium 9.2 Total Bilirubin 0.50 AST 33 ALT 19 Alkaline Phosphatase 52 Total Protein 6.5 Albumin 2.9 L Globulin 3.6 Albumin/Globulin Ratio 0.8 L POC Glucose 100 121 H Microbiology 12/23/19 12:35 Urine Catheter - Catheter Urine Culture - Final Culture exhibits no growth. 12/23/19 11:05 Blood Culture (Wb) - Anticubital Left Blood Culture - Preliminary No growth in 48 hours. 12/23/19 11:05 Blood Culture (Wb) - Anticubital Left Blood Culture - Preliminary No growth in 48 hours. Clinical Impression(s) from Imaging Studies Chest X-Ray 12/23/19 12:20 IMPRESSION: New wedge-shaped peripheral consolidation in the right midlung with mild increased markings at the lung bases and blunting of both costophrenic angles. Pneumonitis associated with Covid 19 should be ruled out. Electronically Signed: Jake Bazzi, at 12:43 EDT , Service support , Chest CTA 12/25/19 13:34 IMPRESSION: 1. No pulmonary embolism 2. Severe emphysema, viral infection. 3. Mild pulmonary arterial hypertension, right heart enlargement. Electronically Signed: Zach Kaplan, at 17:34 EST Tel , Service support , Current Medications Acetaminophen (Acetaminophen 325 Mg Tablet) 650 mg PO Q6H PRN PRN PRN Reason: Pain Score 1-10/Temp > 100.7 F Last Admin: 12/25/19 09:02 Dose: 650 mg Documented by: Albuterol Sulfate (Albuterol Sulfate 8 Gm Inhaler (60 Puffs)) 2 puff INHALATION Q4H PRN PRN PRN Reason: WHEEZING Albuterol/Ipratropium (Ipratropium/Albuterol Sulfate 3 Ml Ampul.Neb) 3 ml INHALATION Q6HWA.RT [facility] Last Admin: 12/26/19 13:44 Dose: 3 ml Documented by: Amlodipine Besylate (Amlodipine 5 Mg Tablet) 5 mg PO BID [facility] Last Admin: 12/26/19 08:33 Dose: 5 mg Documented by: Aspirin (Aspirin E.C. 81 Mg Tablet) 81 mg PO DAILY [facility] Last Admin: 12/26/19 08:33 Dose: 81 mg Documented by: Dexamethasone (Dexamethasone 4 Mg Tablet) 6 mg PO DAILY@0800 [facility] Stop: 01/01/20 08:01 Enoxaparin Sodium (Enoxaparin 100 Mg/Ml Syringe) 90 mg 1 mg/kg (90 mg) SC Q12 [facility] Last Admin: 12/26/19 08:34 Dose: 90 mg Documented by: Furosemide (Furosemide 40 Mg Tablet) 40 mg PO DAILY [facility] Last Admin: 12/26/19 08:33 Dose: 40 mg Documented by: Remdesivir 100 mg/ Sodium (Chloride) 250 mls @ 125 mls/hr IV DAILY [facility]; Protocol Stop: 12/27/19 11:59 Last Infusion: 12/26/19 12:46 Dose: Infused Documented by: Sodium Chloride () 250 mls @ 15 mls/hr IV .[id number] PRN PRN Reason: Saline Flush Last Infusion: 12/26/19 12:46 Dose: 15 mls/hr Documented by: Sodium Chloride () 250 mls @ 15 mls/hr IV .[id number] PRN PRN Reason: Additional IVPB Infusion Insulin Human Lispro (Insulin Lispro 100 Unit/Ml Insuln.Pen) 0 unit SC TIDCM [facility]; Protocol Last Admin: 12/26/19 13:11 Dose: Not Given Documented by: Isosorbide Mononitrate (Isosorbide Mononitrate 60 Mg Tablet) 60 mg PO QHS [facility] Last Admin: 12/25/19 20:57 Dose: 60 mg Documented by: Losartan Potassium (Losartan Potassium 50 Mg Tablet) 50 mg PO BID [facility] Last Admin: 12/26/19 08:33 Dose: 50 mg Documented by: Metoprolol Tartrate (Metoprolol Tartrate 50 Mg Tablet) 50 mg PO BID [facility] Last Admin: 12/26/19 08:34 Dose: 50 mg Documented by: Metoprolol Tartrate (Metoprolol Tartrate 5 Mg/5 Ml Vial) 5 mg IV Q6H PRN PRN PRN Reason: HR > 120 Last Admin: 12/25/19 22:03 Dose: 5 mg Documented by: Ondansetron HCl (Ondansetron 4 Mg/2 Ml Vial) 4 mg IV Q8H PRN PRN PRN Reason: NAUSEA/VOMITING Oxycodone HCl (Oxycodone 5 Mg Tablet) 5 mg PO Q4H PRN PRN PRN Reason: Pain Score 6-10 Last Admin: 12/24/19 22:38 Dose: 5 mg Documented by: Pantoprazole Sodium (Pantoprazole Sodium 20 Mg Tablet) 20 mg PO BID [facility] Last Admin: 12/26/19 08:35 Dose: 20 mg Documented by: Phenol/Menthol (Phenol/Sodium Phenolate 180ml) 3 spray MM Q2H PRN PRN PRN Reason: SORE THROAT Last Admin: 12/26/19 08:32 Dose: 3 spray Documented by: Pravastatin Sodium (Pravastatin 40 Mg Tablet) 40 mg PO QHS [facility] Last Admin: 12/25/19 20:56 Dose: 40 mg Documented by: Sertraline HCl (Sertraline 50 Mg Tablet) 25 mg PO QHS [facility] Last Admin: 12/25/19 20:57 Dose: 25 mg Documented by: Sodium Chloride (0.9% Saline Lock 10 Ml Syringe) 10 - 40 ml IV UD PRN PRN Reason: SALINE FLUSH Last Admin: 12/26/19 08:12 Dose: 10 ml Documented by: Tamsulosin HCl (Tamsulosin Hcl 0.4 Mg Capsule) 0.4 mg PO DAILY [facility] Last Admin: 12/26/19 08:33 Dose: 0.4 mg Documented by: Medical Necessity - Tobacco Use Smoking Status: Former smoker Tobacco Use: Non-smoker Assessment/Plan All Active Problems (Last Reviewed 12/23/19 @ 16:[address] 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 Continue to wean supplemental oxygen to maintain saturations at or above 90%. 2. Continue Decadron, Lovenox and remdesivir as ordered. 3. Continue diuresis as tolerated by hemodynamics and renal function. IMPRESSIONS: 1. Acute hypoxemic respiratory failure Most likely multifactorial in etiology with COVID-19 pneumonia contributing along with an element of pulmonary hypertension secondary to noncompliance with supplemental oxygen previously. The patient also reportedly has a history of COPD of unknown severity. He has already received convalescent plasma and will be continued on remdesivir, Lovenox and Decadron. Bronchodilator therapy will also be continued. Plan to continue gentle diuresis as tolerated by hemodynamics and renal function. Continue to wean supplemental oxygen to maintain saturations at or above 90%. 2. Acute kidney injury Improved. Patient appears to be improving with stabilization of hemodynamics and holding of baseline antihypertensives. Cannot exclude an element of ATN secondary to hypoxia. Continue to monitor urine output. No indication for renal replacement therapy. 3. Advanced age/obesity/history of lung resection/depression/GERD/hypertension Complicates care, management, recovery and prognosis. Okay to continue medications for depression and GERD. This note was generated with [employer] software. It may contain incorrect words, spelling, and punctuation that were not noted in checking the note before signing. Inpatient E&M: 30041 Subs Hosp L3
[2019-12-26 15:45] LABS: Bedside Glucose 155 mg/dL (70-110)
[2019-12-26] MEDS: Insulin Lispro 100 UNIT/ML INSULN.PEN SC (18:22)
[2019-12-26] MEDS: Metoprolol Tartrate 5 MG/5 ML Vial IV (18:33)
--- NOTE | 2019-12-26 19:51 | PCM.PN.ID ---
Patient Problems: Active and Suspected Problems (Last Reviewed 12/23/19 @ 16:[address] Ilan Paulino, DO) Acute respiratory failure with hypoxia (Acute) Bilateral pneumonia (Acute) Sepsis (Acute) Elevated serum creatinine (Acute) COVID-19 (Acute) Subjective: Feeling better, still dyspnea and cough. No fever. - Physical Exam Vitals/I&O's: Vital Signs Temp Pulse Resp BP Pulse Ox 97.7 F L 91 19 H 130/84 H 94 12/26/19 15:20 12/26/19 19:00 12/26/19 16:37 12/26/19 15:20 12/26/19 16:37 Oxygen Flow Rate (L/min) 15 Oxygen Delivery Method Nasal Cannula Weight: 94.7 kg Body Mass Index (BMI) 29.9 Intake and Output for Last 24 Hours 12/25/19 12/25/19 12/26/19 00:59 23:59 23:59 Intake Total 602.5 / 602.5 Output Total 570 / 570 Balance 32.5 / 32.5 General: Alert, Cooperative, No apparent distress Lungs: Diminished Cardiovascular: Regular rate, Regular Rhythm Abdomen: Soft, Non Tender, Non-Distended Skin: No rashes Microbiology Past 72 Hours 12/23/19 12:35 Urine Catheter - Catheter Urine Culture - Final Culture exhibits no growth. 12/23/19 11:05 Blood Culture (Wb) - Anticubital Left Blood Culture - Preliminary No growth in 48 hours. 12/23/19 11:05 Blood Culture (Wb) - Anticubital Left Blood Culture - Preliminary No growth in 48 hours. 12/23/19 22:40 Urine, Random Legionella Antigen - Final 12/23/19 22:40 Urine, Random Streptococcus pneumoniae Antigen (M - Final Laboratory Results 12/25/19 21:00: POC Glucose 141 H 12/26/19 06:32: WBC 3.9 L, RBC 4.20 L, Hgb 13.1, Hct 40.6, MCV 96.7 H, MCH 31.2, MCHC 32.3, RDW Std Deviation 47.8 H, RDW Coeff of Jamar 13.3, Plt Count 118 L, MPV 9.9, Immature Gran % (Auto) 0.300, Neut % (Auto) 69.5, Lymph % (Auto) 16.8 L, [place] % (Auto) 13.1 H, Eos % (Auto) 0.0, Baso % (Auto) 0.3, Absolute Neuts (auto) 2.7, Absolute Lymphs (auto) 0.65 L, Nucleated RBC % 0, Differential Comment SCANNED 12/26/19 06:32: Sodium 142, Potassium 4.0, Chloride 108 H, Carbon Dioxide 28.0, Anion Gap 6, BUN 46 H, Creatinine 1.29, Estim Creat Clear Calc 48.73, Est GFR (MDRD) Af Amer 69, Est GFR (MDRD) Non-Af 57 L, BUN/Creatinine Ratio 35.7 H, Glucose 109 H, Calcium 9.2, Total Bilirubin 0.50, AST 33, ALT 19, Alkaline Phosphatase 52, Total Protein 6.5, Albumin 2.9 L, Globulin 3.6, Albumin/Globulin Ratio 0.8 L 12/26/19 08:20: POC Glucose 100 12/26/19 12:46: POC Glucose 121 H 12/26/19 15:40: POC Glucose 155 H Current Medications Acetaminophen (Acetaminophen 325 Mg Tablet) 650 mg PO Q6H PRN PRN PRN Reason: Pain Score 1-10/Temp > 100.7 F Last Admin: 12/25/19 09:02 Dose: 650 mg Documented by: Albuterol Sulfate (Albuterol Sulfate 8 Gm Inhaler (60 Puffs)) 2 puff INHALATION Q4H PRN PRN PRN Reason: WHEEZING Albuterol/Ipratropium (Ipratropium/Albuterol Sulfate 3 Ml Ampul.Neb) 3 ml INHALATION Q6HWA.RT [facility] Last Admin: 12/26/19 19:17 Dose: 3 ml Documented by: Amlodipine Besylate (Amlodipine 5 Mg Tablet) 5 mg PO BID [facility] Last Admin: 12/26/19 08:33 Dose: 5 mg Documented by: Aspirin (Aspirin E.C. 81 Mg Tablet) 81 mg PO DAILY [facility] Last Admin: 12/26/19 08:33 Dose: 81 mg Documented by: Dexamethasone (Dexamethasone 4 Mg Tablet) 6 mg PO DAILY@0800 [facility] Stop: 01/01/20 08:01 Enoxaparin Sodium (Enoxaparin 100 Mg/Ml Syringe) 90 mg 1 mg/kg (90 mg) SC Q12 [facility] Last Admin: 12/26/19 08:34 Dose: 90 mg Documented by: Furosemide (Furosemide 40 Mg Tablet) 40 mg PO DAILY [facility] Last Admin: 12/26/19 08:33 Dose: 40 mg Documented by: Remdesivir 100 mg/ Sodium (Chloride) 250 mls @ 125 mls/hr IV DAILY [facility]; Protocol Stop: 12/27/19 11:59 Last Infusion: 12/26/19 12:46 Dose: Infused Documented by: Sodium Chloride () 250 mls @ 15 mls/hr IV .[id number] PRN PRN Reason: Saline Flush Last Infusion: 12/26/19 12:46 Dose: 15 mls/hr Documented by: Sodium Chloride () 250 mls @ 15 mls/hr IV .[id number] PRN PRN Reason: Additional IVPB Infusion Insulin Human Lispro (Insulin Lispro 100 Unit/Ml Insuln.Pen) 0 unit SC TIDCM [facility]; Protocol Last Admin: 12/26/19 18:22 Dose: 2 units Documented by: Isosorbide Mononitrate (Isosorbide Mononitrate 60 Mg Tablet) 60 mg PO QHS [facility] Last Admin: 12/25/19 20:57 Dose: 60 mg Documented by: Losartan Potassium (Losartan Potassium 50 Mg Tablet) 50 mg PO BID [facility] Last Admin: 12/26/19 08:33 Dose: 50 mg Documented by: Metoprolol Tartrate (Metoprolol Tartrate 50 Mg Tablet) 50 mg PO BID [facility] Last Admin: 12/26/19 08:34 Dose: 50 mg Documented by: Metoprolol Tartrate (Metoprolol Tartrate 5 Mg/5 Ml Vial) 5 mg IV Q6H PRN PRN PRN Reason: HR > 120 Last Admin: 12/26/19 18:33 Dose: 5 mg Documented by: Ondansetron HCl (Ondansetron 4 Mg/2 Ml Vial) 4 mg IV Q8H PRN PRN PRN Reason: NAUSEA/VOMITING Oxycodone HCl (Oxycodone 5 Mg Tablet) 5 mg PO Q4H PRN PRN PRN Reason: Pain Score 6-10 Last Admin: 12/24/19 22:38 Dose: 5 mg Documented by: Pantoprazole Sodium (Pantoprazole Sodium 20 Mg Tablet) 20 mg PO BID [facility] Last Admin: 12/26/19 08:35 Dose: 20 mg Documented by: Phenol/Menthol (Phenol/Sodium Phenolate 180ml) 3 spray MM Q2H PRN PRN PRN Reason: SORE THROAT Last Admin: 12/26/19 08:32 Dose: 3 spray Documented by: Pravastatin Sodium (Pravastatin 40 Mg Tablet) 40 mg PO QHS [facility] Last Admin: 12/25/19 20:56 Dose: 40 mg Documented by: Sertraline HCl (Sertraline 50 Mg Tablet) 25 mg PO QHS [facility] Last Admin: 12/25/19 20:57 Dose: 25 mg Documented by: Sodium Chloride (0.9% Saline Lock 10 Ml Syringe) 10 - 40 ml IV UD PRN PRN Reason: SALINE FLUSH Last Admin: 12/26/19 18:37 Dose: 10 ml Documented by: Tamsulosin HCl (Tamsulosin Hcl 0.4 Mg Capsule) 0.4 mg PO DAILY [facility] Last Admin: 12/26/19 08:33 Dose: 0.4 mg Documented by: Medical Necessity - Tobacco Use Smoking Status: Former smoker Tobacco Use: Non-smoker Route of nutrition/ use of supplements: [] Nutritional Intake: [] IV Site: [] May Catheter: [] - Assessment/Plan Antibiotics: [] Assessment/Plan: [] Active and Suspected Problems (Last Reviewed 12/23/19 @ 16:[address] Ilan Paulino, DO) Acute respiratory failure with hypoxia (Acute) Bilateral pneumonia (Acute) Sepsis (Acute) Elevated serum creatinine (Acute) COVID-19 (Acute) Covid with hypoxia - On dex, remdesivir, and given plasma. Will stop abx. On 15L. CT showed no PE. Will follow
--- NOTE | 2019-12-26 20:17 | CPS ---
FiO2 decreased to 60%; weaning oxygen needs
[2019-12-26] MEDS: Pravastatin 40 MG Tablet PO (21:01)
[2019-12-26] MEDS: Sertraline 50 MG Tablet 25 MG PO (21:01)
[2019-12-26] MEDS: Isosorbide Mononitrate 60 MG Tablet PO (21:02)
[2019-12-26] MEDS: Acetaminophen 325 MG Tablet 650 MG PO (21:05)
[2019-12-26 21:30] LABS: Bedside Glucose 124 mg/dL (70-110)
--- NOTE | 2019-12-26 23:41 | CPS ---
Pt.'s FiO2 decreased to 55%; wean pt.'s oxygen needs
[2019-12-27] VITALS (18 sets, daily range): BP systolic 120–137; BP diastolic 62–89; PULSE 56–131; RESP 12–21; TEMP 36.3–36.7; O2SAT 91–96
--- NOTE | 2019-12-27 03:27 | CPS ---
Pt.'s FiO2 decreased to 50%; wean pt.'s oxygen needs
--- NOTE | 2019-12-27 06:14 | CPS ---
Pt.'s FiO2 decreased to 45%
[2019-12-27 06:59] LABS: Absolute Lymphocyte Count 0.86 X10^3/uL (0.83-4.51); Absolute Neutrophil Count 3.1 X10^3/uL (2.0-7.7); Basophil# 0.01 X10^3/uL; Basophil% 0.2 % (0-1); Hematocrit 41.1 % (40-54); Hemoglobin 13.4 g/dL (13.0-16.5); Lymphocyte # 0.86 X10^3/ul (4.0); Lymphocyte % 18.3 % (19-41); Mean Corp Hgb Conc 32.6 g/dL (32-36); Mean Corpuscular Hgb 31.1 pg (27.0-32.0); Mean Corpuscular Volume 95.4 fL (80-94); Mean Platelet Vol. 9.8 fl (6.2-12.0); Monocyte% 14.9 % (0-10); NRBC Flagged by Analyzer 0 % (0-5); Neutrophil % 66.2 % (47-70); POSITIVE MORPHOLOGY YES; Platelet Count 134 K/mm3 (150-450); RBC Distribution Width CV 13.1 % (11.6-14.6); RBC Distribution Width SD 46.4 fl (35.1-43.9); Red Blood Count 4.31 M/mm3 (4.6-6.2); White Blood Count 4.7 K/mm3 (4.4-11.0)
[2019-12-27 07:01] LABS: Differential Indicated SCAN CRITERIA MET
[2019-12-27 07:38] LABS: ALB/GLOB Ratio 0.9 RATIO (0.9-2.4); AST(SGOT) 34 U/L (15-37); Alanine Aminotransfer ALT/SGPT 25 U/L (16-61); Albumin, Serum 2.9 g/dL (3.2-5.0); Alkaline Phosphatase 49 U/L (45-117); Anion Gap 5 (5-15); BUN 49 mg/dL (7-18); BUN/Creat Ratio 40.8 RATIO (10-20); Calcium,Total 9.2 mg/dL (8.5-10.1); Chloride 108 mmol/L (98-107); EST Glomerular Filtration Rate 62 mL/min (>60); Est Glom Filt Rate - Afr Amer 75 mL/min (>60); Estimated Creatinine Clearance 52.38 ml/min; Globulin 3.4 g/dL (2.2-4.2); Glucose 99 mg/dL (74-106); Potassium 4.2 mmol/L (3.5-5.1); Protein, Total 6.3 g/dL (6.4-8.2); Sodium Level 142 mmol/L (136-145)
[2019-12-27] MEDS: Ipratropium/Albuterol Sulfate 3 ML AMPUL.NEB INHALATION ×3 (07:52→20:40)
--- NOTE | 2019-12-27 07:52 | PN_ITS ---
Patient Problems: Active and Suspected Problems (Last Reviewed 12/23/19 @ 16:[address] Ilan Paulino, DO) Acute respiratory failure with hypoxia (Acute) Bilateral pneumonia (Acute) Sepsis (Acute) Elevated serum creatinine (Acute) COVID-19 (Acute) Subjective: Patient seen and examined this morning. He has remained hemodynamically stable. He has no complaints this morning. Remains on 15 L of oxygen by nasal cannula with BiPAP as needed. Received convalescent plasma and is on Decadron and remdesivir. Vitals/I&O's: Vital Signs Temp Pulse Resp BP Pulse Ox 97.6 F L 56 L 17 125/76 H 95 12/27/19 03:00 12/27/19 04:44 12/27/19 04:44 12/27/19 03:00 12/27/19 04:44 Oxygen Flow Rate (L/min) 15 Oxygen Delivery Method Bi-pap Weight: 206 lb 5.643 oz Body Mass Index (BMI) 29.9 Intake and Output for Last 24 Hours 12/25/19 12/26/19 12/27/19 23:59 23:59 23:59 Intake Total 827.0 / 827.0 50 / 50 Output Total 845 / 845 200 / 200 Balance -18.0 / -18.0 -150 / -150 General: Alert, Oriented x3, Cooperative, No apparent distress HEENT: Atraumatic, PERRLA, EOMI, Normocephalic Oral: Moist Mucosa Neck: Supple, No JVD, Negative Carotid Bruits Lungs: - - diminished breath sounds bibasally, no wheezes or crackles. on 15L of oxygen Cardiovascular: Regular rate, Regular Rhythm, Normal S1, Normal S2, No murmurs Abdomen: Bowel Sounds Present, Soft, Non Tender Extremities: No clubbing, No cyanosis, No edema, Capillary Refill Less than 3 Seconds Skin: No rashes, No breakdown Musculoskeletal: No Tenderness to Palpation of Joints or Extremities Lymphatic: No Cervical, Supraclavicular, or Inguinal Adenopathy Neurological: Cranial nerves II-XII grossly intact, Neuro grossly intact, Motor Exam 5/5 strength throughout Psych/Mental Status: Normal Affect, Appropriate, Alert and oriented to time, place, person, mood and affect Microbiology Past 72 Hours 12/23/19 12:35 Urine Catheter - Catheter Urine Culture - Final Culture exhibits no growth. 12/23/19 11:05 Blood Culture (Wb) - Anticubital Left Blood Culture - Preliminary No growth in 48 hours. 12/23/19 11:05 Blood Culture (Wb) - Anticubital Left Blood Culture - Preliminary No growth in 48 hours. Laboratory Results 12/26/19 08:20: POC Glucose 100 12/26/19 12:46: POC Glucose 121 H 12/26/19 15:40: POC Glucose 155 H 12/26/19 20:55: POC Glucose 124 H 12/27/19 06:50: WBC 4.7, RBC 4.31 L, Hgb 13.4, Hct 41.1, MCV 95.4 H, MCH 31.1, MCHC 32.6, RDW Std Deviation 46.4 H, RDW Coeff of Jamar 13.1, Plt Count 134 L, MPV 9.8, Immature Gran % (Auto) 0.400, Neut % (Auto) 66.2, Lymph % (Auto) 18.3 L, [place] % (Auto) 14.9 H, Eos % (Auto) 0.0, Baso % (Auto) 0.2, Absolute Neuts (auto) 3.1, Absolute Lymphs (auto) 0.86, Nucleated RBC % 0 12/27/19 06:50: Sodium 142, Potassium 4.2, Chloride 108 H, Carbon Dioxide 29.0, Anion Gap 5, BUN 49 H, Creatinine 1.20, Estim Creat Clear Calc 52.38, Est GFR (MDRD) Af Amer 75, Est GFR (MDRD) Non-Af 62, BUN/Creatinine Ratio 40.8 H, G lucose 99, Calcium 9.2, Total Bilirubin 0.50, AST 34, ALT 25, Alkaline Phosphatase 49, Total Protein 6.3 L, Albumin 2.9 L, Globulin 3.4, Albumin/Globu john Ratio 0.9 Diagnostic Data Chest X-Ray 12/23/19 12:20 IMPRESSION: New wedge-shaped peripheral consolidation in the right midlung with mild increased markings at the lung bases and blunting of both costophrenic angles. Pneumonitis associated with Covid 19 should be ruled out. Electronically Signed: Jake Bazzi, at 12:43 EDT , Service support , Chest CTA 12/25/19 13:34 IMPRESSION: 1. No pulmonary embolism 2. Severe emphysema, viral infection. 3. Mild pulmonary arterial hypertension, right heart enlargement. Electronically Signed: Zach Kaplan, at 17:34 EST Tel , Service support , Current Medications Acetaminophen (Acetaminophen 325 Mg Tablet) 650 mg PO Q6H PRN PRN PRN Reason: Pain Score 1-10/Temp > 100.7 F Last Admin: 12/26/19 21:05 Dose: 650 mg Documented by: Albuterol Sulfate (Albuterol Sulfate 8 Gm Inhaler (60 Puffs)) 2 puff INHALATION Q4H PRN PRN PRN Reason: WHEEZING Albuterol/Ipratropium (Ipratropium/Albuterol Sulfate 3 Ml Ampul.Neb) 3 ml INHALATION Q6HWA.RT [facility] Last Admin: 12/26/19 19:17 Dose: 3 ml Documented by: Amlodipine Besylate (Amlodipine 5 Mg Tablet) 5 mg PO BID [facility] Last Admin: 12/26/19 21:01 Dose: 5 mg Documented by: Aspirin (Aspirin E.C. 81 Mg Tablet) 81 mg PO DAILY [facility] Last Admin: 12/26/19 08:33 Dose: 81 mg Documented by: Dexamethasone (Dexamethasone 4 Mg Tablet) 6 mg PO DAILY@0800 [facility] Stop: 01/01/20 08:01 Enoxaparin Sodium (Enoxaparin 100 Mg/Ml Syringe) 90 mg 1 mg/kg (90 mg) SC Q12 [facility] Last Admin: 12/26/19 21:02 Dose: 90 mg Documented by: Furosemide (Furosemide 40 Mg Tablet) 40 mg PO DAILY [facility] Last Admin: 12/26/19 08:33 Dose: 40 mg Documented by: Remdesivir 100 mg/ Sodium (Chloride) 250 mls @ 125 mls/hr IV DAILY [facility]; Protocol Stop: 12/27/19 11:59 Last Infusion: 12/26/19 12:46 Dose: Infused Documented by: Sodium Chloride () 250 mls @ 15 mls/hr IV .[id number] PRN PRN Reason: Saline Flush Last Infusion: 12/26/19 21:04 Dose: 0 mls/hr Documented by: Sodium Chloride () 250 mls @ 15 mls/hr IV .[id number] PRN PRN Reason: Additional IVPB Infusion Insulin Human Lispro (Insulin Lispro 100 Unit/Ml Insuln.Pen) 0 unit SC TIDCM [facility]; Protocol Last Admin: 12/26/19 18:22 Dose: 2 units Documented by: Isosorbide Mononitrate (Isosorbide Mononitrate 60 Mg Tablet) 60 mg PO QHS [facility] Last Admin: 12/26/19 21:02 Dose: 60 mg Documented by: Losartan Potassium (Losartan Potassium 50 Mg Tablet) 50 mg PO BID [facility] Last Admin: 12/26/19 21:02 Dose: 50 mg Documented by: Metoprolol Tartrate (Metoprolol Tartrate 50 Mg Tablet) 50 mg PO BID [facility] Last Admin: 12/26/19 21:01 Dose: 50 mg Documented by: Metoprolol Tartrate (Metoprolol Tartrate 5 Mg/5 Ml Vial) 5 mg IV Q6H PRN PRN PRN Reason: HR > 120 Last Admin: 12/26/19 18:33 Dose: 5 mg Documented by: Ondansetron HCl (Ondansetron 4 Mg/2 Ml Vial) 4 mg IV Q8H PRN PRN PRN Reason: NAUSEA/VOMITING Oxycodone HCl (Oxycodone 5 Mg Tablet) 5 mg PO Q4H PRN PRN PRN Reason: Pain Score 6-10 Last Admin: 12/24/19 22:38 Dose: 5 mg Documented by: Pantoprazole Sodium (Pantoprazole Sodium 20 Mg Tablet) 20 mg PO BID [facility] Last Admin: 12/26/19 21:01 Dose: 20 mg Documented by: Phenol/Menthol (Phenol/Sodium Phenolate 180ml) 3 spray MM Q2H PRN PRN PRN Reason: SORE THROAT Last Admin: 12/26/19 21:01 Dose: 3 spray Documented by: Pravastatin Sodium (Pravastatin 40 Mg Tablet) 40 mg PO QHS [facility] Last Admin: 12/26/19 21:01 Dose: 40 mg Documented by: Sertraline HCl (Sertraline 50 Mg Tablet) 25 mg PO QHS [facility] Last Admin: 12/26/19 21:01 Dose: 25 mg Documented by: Sodium Chloride (0.9% Saline Lock 10 Ml Syringe) 10 - 40 ml IV UD PRN PRN Reason: SALINE FLUSH Last Admin: 12/26/19 18:37 Dose: 10 ml Documented by: Tamsulosin HCl (Tamsulosin Hcl 0.4 Mg Capsule) 0.4 mg PO DAILY [facility] Last Admin: 12/26/19 08:33 Dose: 0.4 mg Documented by: STROKE Vital Signs/Narrative: Vital Signs Pulse Resp Pulse Ox 12/27/19 04:44 56 L 17 95 Medical Necessity - Tobacco Use Smoking Status: Former smoker Tobacco Use: Non-smoker Assessment/Plan All Active Problems (Last Reviewed 12/23/19 @ 16:[address] 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 * blood cultures negative * urine for strep and Legionella * # CKD 3 * Cr is 1.20 today, and stable * #Hypertension: on amlodipine 5mg bid, losartan and metoprolol #Afib: currently rate controlled. On metoprolol. DVT prophylaxis: lovenox Inpatient E&M: [id number] [facility] L[facility]
[2019-12-27] MEDS: dexAMETHasone 4 MG Tablet 6 MG PO (08:11)
[2019-12-27] MEDS: Aspirin E.C. 81 MG Tablet PO (08:12)
[2019-12-27] MEDS: Furosemide 40 MG Tablet PO (08:13)
[2019-12-27] MEDS: Losartan Potassium 50 MG Tablet PO ×2 (08:13→20:50)
[2019-12-27] MEDS: Metoprolol Tartrate 50 MG Tablet PO ×2 (08:13→20:51)
[2019-12-27] MEDS: Tamsulosin HCl 0.4 MG Capsule PO (08:13)
[2019-12-27] MEDS: amLODIPine 5 MG Tablet PO ×2 (08:13→20:50)
[2019-12-27] MEDS: Pantoprazole Sodium 20 MG Tablet PO ×2 (08:13→20:50)
[2019-12-27] MEDS: Enoxaparin 100 MG/ML Syringe 90 MG SC ×2 (08:15→20:50)
[2019-12-27 08:27] LABS: Reactive Lymphocyte RARE
[2019-12-27] MEDS: Acetaminophen 325 MG Tablet 650 MG PO ×2 (08:30→20:49)
[2019-12-27 10:00] LABS: Bedside Glucose 80 mg/dL (70-110)
[2019-12-27] MEDS: 0.9% Saline Lock 10 ML Syringe IV (10:52)
--- NOTE | 2019-12-27 11:30 | PCM.PN.PUL ---
Patient Problems: Active and Suspected Problems (Last Reviewed 12/23/19 @ 16:[address] Ilan Paulino, DO) Acute respiratory failure with hypoxia (Acute) Bilateral pneumonia (Acute) Sepsis (Acute) Elevated serum creatinine (Acute) COVID-19 (Acute) Subjective: The patient was seen and examined at the bedside this morning. Events from the last 24 hours have been reviewed. The patient is currently afebrile, hemodynamically stable and maintaining appropriate oxygen saturations on 15 L/min via nasal cannula. Although the patient feels relatively well, he continues to have a high oxygen requirement. Objective: The patient's most recent lab work, culture data and imaging studies have all been personally reviewed. Surface echocardiogram from September 2019 revealed an ejection fraction of 55% and stage I diastolic dysfunction. Pulmonary artery systolic pressure was estimated to be 57 mmHg. Coronavirus PCR was positive on December 22. Strep and urine Legionella antigens were negative. Blood and urine cultures have shown no growth to date. - Physical Exam Vitals/I&O's: Vital Signs Temp Pulse Resp BP Pulse Ox 97.9 F 74 18 137/89 H 93 12/27/19 08:35 12/27/19 10:55 12/27/19 08:35 12/27/19 08:35 12/27/19 08:35 Oxygen Flow Rate (L/min) 15 Oxygen Delivery Method Nasal Cannula Weight: 206 lb 5.643 oz Body Mass Index (BMI) 29.9 Intake and Output for Last 24 Hours 12/25/19 12/26/19 12/27/19 23:59 23:59 23:59 Intake Total 827.0 / 827.0 50 / 50 Output Total 845 / 845 200 / 200 Balance -18.0 / -18.0 -150 / -150 General: Alert, Cooperative, No apparent distress HEENT: Atraumatic, PERRLA, Normocephalic Oral: No Gingival or Mucosal Lesions/ Ulcerations Neck: Supple, No Nodes, Trachea Midline Lungs: No rhonchi, No wheeze, No rales, Diminished Cardiovascular: Regular rate, Regular Rhythm Abdomen: Bowel Sounds Present, Soft, Non Tender Extremities: No clubbing, No cyanosis, No edema Skin: No breakdown Musculoskeletal: No Tenderness to Palpation of Joints or Extremities Lymphatic: No Cervical, Supraclavicular, or Inguinal Adenopathy Neurological: Neuro grossly intact Psych/Mental Status: Normal Affect, Appropriate Labs (Last 48 Hours) 12/25/19 12/25/19 12/25/19 12:03 17:00 21:00 WBC RBC Hgb Hct MCV MCH MCHC RDW Std Deviation RDW Coeff of Jamar Plt Count MPV Immature Gran % (Auto) Neut % (Auto) Lymph % (Auto) [place] % (Auto) Eos % (Auto) Baso % (Auto) Absolute Neuts (auto) Absolute Lymphs (auto) Nucleated RBC % Differential Comment Reactive Lymphocytes Sodium Potassium Chloride Carbon Dioxide Anion Gap BUN Creatinine Estim Creat Clear Calc Est GFR (MDRD) Af Amer Est GFR (MDRD) Non-Af BUN/Creatinine Ratio Glucose Calcium Total Bilirubin AST ALT Alkaline Phosphatase Total Protein Albumin Globulin Albumin/Globulin Ratio POC Glucose 174 H 126 H 141 H 12/26/19 12/26/19 12/26/19 06:32 06:32 08:20 WBC 3.9 L RBC 4.20 L Hgb 13.1 Hct 40.6 MCV 96.7 H MCH 31.2 MCHC 32.3 RDW Std Deviation 47.8 H RDW Coeff of Jamar 13.3 Plt Count 118 L MPV 9.9 Immature Gran % (Auto) 0.300 Neut % (Auto) 69.5 Lymph % (Auto) 16.8 L [place] % (Auto) 13.1 H Eos % (Auto) 0.0 Baso % (Auto) 0.3 Absolute Neuts (auto) 2.7 Absolute Lymphs (auto) 0.65 L Nucleated RBC % 0 Differential Comment SCANNED Reactive Lymphocytes Sodium 142 Potassium 4.0 Chloride 108 H Carbon Dioxide 28.0 Anion Gap 6 BUN 46 H Creatinine 1.29 Estim Creat Clear Calc 48.73 Est GFR (MDRD) Af Amer 69 Est GFR (MDRD) Non-Af 57 L BUN/Creatinine Ratio 35.7 H Glucose 109 H Calcium 9.2 Total Bilirubin 0.50 AST 33 ALT 19 Alkaline Phosphatase 52 Total Protein 6.5 Albumin 2.9 L Globulin 3.6 Albumin/Globulin Ratio 0.8 L POC Glucose 100 12/26/19 12/26/19 12/26/19 12:46 15:40 20:55 WBC RBC Hgb Hct MCV MCH MCHC RDW Std Deviation RDW Coeff of Jamar Plt Count MPV Immature Gran % (Auto) Neut % (Auto) Lymph % (Auto) [place] % (Auto) Eos % (Auto) Baso % (Auto) Absolute Neuts (auto) Absolute Lymphs (auto) Nucleated RBC % Differential Comment Reactive Lymphocytes Sodium Potassium Chloride Carbon Dioxide Anion Gap BUN Creatinine Estim Creat Clear Calc Est GFR (MDRD) Af Amer Est GFR (MDRD) Non-Af BUN/Creatinine Ratio Glucose Calcium Total Bilirubin AST ALT Alkaline Phosphatase Total Protein Albumin Globulin Albumin/Globulin Ratio POC Glucose 121 H 155 H 124 H 12/27/19 12/27/19 12/27/19 06:50 06:50 08:29 WBC 4.7 RBC 4.31 L Hgb 13.4 Hct 41.1 MCV 95.4 H MCH 31.1 MCHC 32.6 RDW Std Deviation 46.4 H RDW Coeff of Jamar 13.1 Plt Count 134 L MPV 9.8 Immature Gran % (Auto) 0.400 Neut % (Auto) 66.2 Lymph % (Auto) 18.3 L [place] % (Auto) 14.9 H Eos % (Auto) 0.0 Baso % (Auto) 0.2 Absolute Neuts (auto) 3.1 Absolute Lymphs (auto) 0.86 Nucleated RBC % 0 Differential Comment Reactive Lymphocytes RARE Sodium 142 Potassium 4.2 Chloride 108 H Carbon Dioxide 29.0 Anion Gap 5 BUN 49 H Creatinine 1.20 Estim Creat Clear Calc 52.38 Est GFR (MDRD) Af Amer 75 Est GFR (MDRD) Non-Af 62 BUN/Creatinine Ratio 40.8 H Glucose 99 Calcium 9.2 Total Bilirubin 0.50 AST 34 ALT 25 Alkaline Phosphatase 49 Total Protein 6.3 L Albumin 2.9 L Globulin 3.4 Albumin/Globulin Ratio 0.9 POC Glucose 80 Microbiology 12/23/19 12:35 Urine Catheter - Catheter Urine Culture - Final Culture exhibits no growth. 12/23/19 11:05 Blood Culture (Wb) - Anticubital Left Blood Culture - Preliminary No growth in 48 hours. 12/23/19 11:05 Blood Culture (Wb) - Anticubital Left Blood Culture - Preliminary No growth in 48 hours. Clinical Impression(s) from Imaging Studies Chest X-Ray 12/23/19 12:20 IMPRESSION: New wedge-shaped peripheral consolidation in the right midlung with mild increased markings at the lung bases and blunting of both costophrenic angles. Pneumonitis associated with Covid 19 should be ruled out. Electronically Signed: Jake Rose Mary, at 12:43 EDT , Service support , Chest CTA 12/25/19 13:34 IMPRESSION: 1. No pulmonary embolism 2. Severe emphysema, viral infection. 3. Mild pulmonary arterial hypertension, right heart enlargement. Electronically Signed: Zach Kaplan, at 17:34 EST Tel , Service support , Current Medications Acetaminophen (Acetaminophen 325 Mg Tablet) 650 mg PO Q6H PRN PRN PRN Reason: Pain Score 1-10/Temp > 100.7 F Last Admin: 12/27/19 08:30 Dose: 650 mg Documented by: Albuterol Sulfate (Albuterol Sulfate 8 Gm Inhaler (60 Puffs)) 2 puff INHALATION Q4H PRN PRN PRN Reason: WHEEZING Albuterol/Ipratropium (Ipratropium/Albuterol Sulfate 3 Ml Ampul.Neb) 3 ml INHALATION Q6HWA.RT [facility] Last Admin: 12/26/19 19:17 Dose: 3 ml Documented by: Amlodipine Besylate (Amlodipine 5 Mg Tablet) 5 mg PO BID [facility] Last Admin: 12/27/19 08:13 Dose: 5 mg Documented by: Aspirin (Aspirin E.C. 81 Mg Tablet) 81 mg PO DAILY [facility] Last Admin: 12/27/19 08:12 Dose: 81 mg Documented by: Dexamethasone (Dexamethasone 4 Mg Tablet) 6 mg PO DAILY@0800 [facility] Stop: 01/01/20 08:01 Last Admin: 12/27/19 08:11 Dose: 6 mg Documented by: Enoxaparin Sodium (Enoxaparin 100 Mg/Ml Syringe) 90 mg 1 mg/kg (90 mg) SC Q12 [facility] Last Admin: 12/27/19 08:15 Dose: 90 mg Documented by: Furosemide (Furosemide 40 Mg Tablet) 40 mg PO DAILY [facility] Last Admin: 12/27/19 08:13 Dose: 40 mg Documented by: Remdesivir 100 mg/ Sodium (Chloride) 250 mls @ 125 mls/hr IV DAILY [facility]; Protocol Stop: 12/27/19 11:59 Last Admin: 12/27/19 10:52 Dose: 120 mls/hr Documented by: Sodium Chloride () 250 mls @ 15 mls/hr IV .[id number] PRN PRN Reason: Saline Flush Last Infusion: 12/26/19 21:04 Dose: 0 mls/hr Documented by: Sodium Chloride () 250 mls @ 15 mls/hr IV .[id number] PRN PRN Reason: Additional IVPB Infusion Insulin Human Lispro (Insulin Lispro 100 Unit/Ml Insuln.Pen) 0 unit SC TIDCM [facility]; Protocol Last Admin: 12/27/19 08:29 Dose: Not Given Documented by: Isosorbide Mononitrate (Isosorbide Mononitrate 60 Mg Tablet) 60 mg PO QHS [facility] Last Admin: 12/26/19 21:02 Dose: 60 mg Documented by: Losartan Potassium (Losartan Potassium 50 Mg Tablet) 50 mg PO BID [facility] Last Admin: 12/27/19 08:13 Dose: 50 mg Documented by: Metoprolol Tartrate (Metoprolol Tartrate 50 Mg Tablet) 50 mg PO BID [facility] Last Admin: 12/27/19 08:13 Dose: 50 mg Documented by: Metoprolol Tartrate (Metoprolol Tartrate 5 Mg/5 Ml Vial) 5 mg IV Q6H PRN PRN PRN Reason: HR > 120 Last Admin: 12/26/19 18:33 Dose: 5 mg Documented by: Ondansetron HCl (Ondansetron 4 Mg/2 Ml Vial) 4 mg IV Q8H PRN PRN PRN Reason: NAUSEA/VOMITING Oxycodone HCl (Oxycodone 5 Mg Tablet) 5 mg PO Q4H PRN PRN PRN Reason: Pain Score 6-10 Last Admin: 12/24/19 22:38 Dose: 5 mg Documented by: Pantoprazole Sodium (Pantoprazole Sodium 20 Mg Tablet) 20 mg PO BID [facility] Last Admin: 12/27/19 08:13 Dose: 20 mg Documented by: Phenol/Menthol (Phenol/Sodium Phenolate 180ml) 3 spray MM Q2H PRN PRN PRN Reason: SORE THROAT Last Admin: 12/26/19 21:01 Dose: 3 spray Documented by: Pravastatin Sodium (Pravastatin 40 Mg Tablet) 40 mg PO QHS [facility] Last Admin: 12/26/19 21:01 Dose: 40 mg Documented by: Sertraline HCl (Sertraline 50 Mg Tablet) 25 mg PO QHS [facility] Last Admin: 12/26/19 21:01 Dose: 25 mg Documented by: Sodium Chloride (0.9% Saline Lock 10 Ml Syringe) 10 - 40 ml IV UD PRN PRN Reason: SALINE FLUSH Last Admin: 12/27/19 10:52 Dose: 10 ml Documented by: Tamsulosin HCl (Tamsulosin Hcl 0.4 Mg Capsule) 0.4 mg PO DAILY [facility] Last Admin: 12/27/19 08:13 Dose: 0.4 mg Documented by: Medical Necessity - Tobacco Use Smoking Status: Former smoker Tobacco Use: Non-smoker Assessment/Plan All Active Problems (Last Reviewed 12/23/19 @ 16:[address] 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 Continue to wean supplemental oxygen to maintain saturations at or above 90%. 2. Continue Decadron, Lovenox and remdesivir as ordered. 3. Continue diuresis as tolerated by hemodynamics and renal function. 4. Encourage incentive spirometer use and mobilize patient as tolerated. IMPRESSIONS: 1. Acute hypoxemic respiratory failure Most likely multifactorial in etiology with COVID-19 pneumonia contributing along with an element of pulmonary hypertension secondary to noncompliance with supplemental oxygen previously. The patient also reportedly has a history of COPD of unknown severity. He has already received convalescent plasma and will be continued on remdesivir, Lovenox and Decadron. Bronchodilator therapy will also be continued. Plan to continue gentle diuresis as tolerated by hemodynamics and renal function. Continue to wean supplemental oxygen to maintain saturations at or above 90%. 2. Acute kidney injury Improved. Patient appears to be improving with stabilization of hemodynamics and holding of baseline antihypertensives. Cannot exclude an element of ATN secondary to hypoxia. Continue to monitor urine output. No indication for renal replacement therapy. 3. Advanced age/obesity/history of lung resection/depression/GERD/hypertension Complicates care, management, recovery and prognosis. Okay to continue medications for depression and GERD. This note was generated with [employer] dictation software. It may contain incorrect words, spelling, and punctuation that were not noted in checking the note before signing. Inpatient E&M: [id number] [facility] L3
[2019-12-27] MEDS: Furosemide 40 MG/4 ML Vial IV (12:15)
[2019-12-27] MEDS: Insulin Lispro 100 UNIT/ML INSULN.PEN SC ×2 (12:15→17:01)
[2019-12-27 12:50] LABS: Bedside Glucose 156 mg/dL (70-110)
[2019-12-27 17:20] LABS: Bedside Glucose 150 mg/dL (70-110)
[2019-12-27] MEDS: Sertraline 50 MG Tablet 25 MG PO (20:50)
[2019-12-27] MEDS: Isosorbide Mononitrate 60 MG Tablet PO (20:50)
[2019-12-27] MEDS: Pravastatin 40 MG Tablet PO (20:51)
[2019-12-28] VITALS (21 sets, daily range): BP systolic 119–136; BP diastolic 71–86; PULSE 48–132; RESP 12–22; TEMP 36.3–36.5; O2SAT 90–96
[2019-12-28 06:49] LABS: Absolute Lymphocyte Count 0.79 X10^3/uL (0.83-4.51); Absolute Neutrophil Count 3.4 X10^3/uL (2.0-7.7); Basophil# 0.01 X10^3/uL; Basophil% 0.2 % (0-1); Differential Indicated SCAN CRITERIA MET; Hematocrit 40.7 % (40-54); Hemoglobin 13.4 g/dL (13.0-16.5); Lymphocyte # 0.79 X10^3/ul (4.0); Lymphocyte % 16.4 % (19-41); Mean Corp Hgb Conc 32.9 g/dL (32-36); Mean Corpuscular Hgb 31.1 pg (27.0-32.0); Mean Corpuscular Volume 94.4 fL (80-94); Mean Platelet Vol. 9.8 fl (6.2-12.0); Monocyte% 12.4 % (0-10); NRBC Flagged by Analyzer 0 % (0-5); Neutrophil # 3.39 X10^3/uL (2.7-7.7); Neutrophil % 70.4 % (47-70); POSITIVE MORPHOLOGY YES; Platelet Count 137 K/mm3 (150-450); RBC Distribution Width CV 12.8 % (11.6-14.6); RBC Distribution Width SD 44.3 fl (35.1-43.9); Red Blood Count 4.31 M/mm3 (4.6-6.2); White Blood Count 4.8 K/mm3 (4.4-11.0)
[2019-12-28 07:09] LABS: Differential Comment SCANNED
[2019-12-28 07:11] LABS: ALB/GLOB Ratio 0.9 RATIO (0.9-2.4); AST(SGOT) 38 U/L (15-37); Alanine Aminotransfer ALT/SGPT 33 U/L (16-61); Alkaline Phosphatase 54 U/L (45-117); Anion Gap 6 (5-15); BUN 46 mg/dL (7-18); BUN/Creat Ratio 42.6 RATIO (10-20); Chloride 108 mmol/L (98-107); Creatinine, Serum 1.08 mg/dL (0.70-1.30); EST Glomerular Filtration Rate 70 mL/min (>60); Est Glom Filt Rate - Afr Amer 85 mL/min (>60); Globulin 3.4 g/dL (2.2-4.2); Glucose 101 mg/dL (74-106); Potassium 3.4 mmol/L (3.5-5.1); Protein, Total 6.4 g/dL (6.4-8.2); Sodium Level 143 mmol/L (136-145)
[2019-12-28] MEDS: Ipratropium/Albuterol Sulfate 3 ML AMPUL.NEB INHALATION ×3 (07:16→20:10)
--- NOTE | 2019-12-28 07:50 | PN_ITS ---
Patient Problems: Active and Suspected Problems (Last Reviewed 12/23/19 @ 16:[address] Ilan Paulino, DO) Acute respiratory failure with hypoxia (Acute) Bilateral pneumonia (Acute) Sepsis (Acute) Elevated serum creatinine (Acute) COVID-19 (Acute) Subjective: Patient seen and examined. He has no complaints today. He was was requiring BiPAP overnight and is on 15 L of oxygen during the day. He however feels fine and review of systems otherwise negative. Vitals/I&O's: Vital Signs Temp Pulse Resp BP Pulse Ox 97.4 F L 62 20 H 133/74 H 94 12/28/19 05:00 12/28/19 05:00 12/28/19 05:00 12/28/19 05:00 12/28/19 05:00 Oxygen Flow Rate (L/min) 15 Oxygen Delivery Method Bi-pap Weight: 203 lb 11.314 oz Body Mass Index (BMI) 29.9 Intake and Output for Last 24 Hours 12/26/19 12/27/19 12/28/19 23:59 23:59 23:59 Intake Total 827.0 / 827.0 540 / 540 120 / 120 Output Total 845 / 845 2500 / 2500 200 / 200 Balance -18.0 / -18.0 -1960 / -1960 -80 / -80 General: Alert, Oriented x3, Cooperative, No apparent distress HEENT: Atraumatic, PERRLA, EOMI, Normocephalic Oral: Moist Mucosa Neck: Supple, No JVD, Negative Carotid Bruits Lungs: - - diminished breath sounds bibasally, no wheezes or crackles. on 15L of oxygen Cardiovascular: Regular rate, Regular Rhythm, Normal S1, Normal S2, No murmurs Abdomen: Bowel Sounds Present, Soft, Non Tender Extremities: No clubbing, No cyanosis, No edema, Capillary Refill Less than 3 Seconds Skin: No rashes, No breakdown Musculoskeletal: No Tenderness to Palpation of Joints or Extremities Lymphatic: No Cervical, Supraclavicular, or Inguinal Adenopathy Neurological: Cranial nerves II-XII grossly intact, Neuro grossly intact, Motor Exam 5/5 strength throughout Psych/Mental Status: Normal Affect, Appropriate, Alert and oriented to time, place, person, mood and affect Microbiology Past 72 Hours 12/23/19 12:35 Urine Catheter - Catheter Urine Culture - Final Culture exhibits no growth. 12/23/19 11:05 Blood Culture (Wb) - Anticubital Left Blood Culture - Preliminary No growth in 48 hours. 12/23/19 11:05 Blood Culture (Wb) - Anticubital Left Blood Culture - Preliminary No growth in 48 hours. Laboratory Results 12/27/19 06:50: Reactive Lymphocytes RARE 12/27/19 08:29: POC Glucose 80 12/27/19 12:13: POC Glucose 156 H 12/27/19 16:58: POC Glucose 150 H 12/28/19 06:40: WBC 4.8, RBC 4.31 L, Hgb 13.4, Hct 40.7, MCV 94.4 H, MCH 31.1, MCHC 32.9, RDW Std Deviation 44.3 H, RDW Coeff of Jamar 12.8, Plt Count 137 L, MPV 9.8, Immature Gran % (Auto) 0.600, Neut % (Auto) 70.4 H, Lymph % (Auto) 16.4 L, Amelia % (Auto) 12.4 H, Eos % (Auto) 0.0, Baso % (Auto) 0.2, Absolute Neuts (auto) 3.4, Absolute Lymphs (auto) 0.79 L, Nucleated RBC % 0, Differential Comment SCANNED 12/28/19 06:40: Sodium 143, Potassium 3.4 L, Chloride 108 H, Carbon Dioxide 29.0, Anion Gap 6, BUN 46 H, Creatinine 1.08, Estim Creat Clear Calc 58.20, Est GFR (MDRD) Af Amer 85, Est GFR (MDRD) Non-Af 70, BUN/Creatinine Ratio 42.6 H, Glucose 101, Calcium 9.0, Total Bilirubin 0.60, AST 38 H, ALT 33, Alkaline Phosphatase 54, Total Protein 6.4, Albumin 3.0 L, Globulin 3.4, Albumin/Globulin Ratio 0.9 Diagnostic Data Chest X-Ray 12/23/19 12:20 IMPRESSION: New wedge-shaped peripheral consolidation in the right midlung with mild increased markings at the lung bases and blunting of both costophrenic angles. Pneumonitis associated with Covid 19 should be ruled out. Electronically Signed: Jake Bazzi, at 12:43 EDT , Service support , Chest CTA 12/25/19 13:34 IMPRESSION: 1. No pulmonary embolism 2. Severe emphysema, viral infection. 3. Mild pulmonary arterial hypertension, right heart enlargement. Electronically Signed: Zach Kaplan, at 17:34 EST Tel , Service support , Current Medications Acetaminophen (Acetaminophen 325 Mg Tablet) 650 mg PO Q6H PRN PRN PRN Reason: Pain Score 1-10/Temp > 100.7 F Last Admin: 12/27/19 20:49 Dose: 650 mg Documented by: Albuterol Sulfate (Albuterol Sulfate 8 Gm Inhaler (60 Puffs)) 2 puff INHALATION Q4H PRN PRN PRN Reason: WHEEZING Albuterol/Ipratropium (Ipratropium/Albuterol Sulfate 3 Ml Ampul.Neb) 3 ml INHALATION Q6HWA.RT [facility], 1928[facility] Last Admin: 12/28/19 07:16 Dose: 3 ml Documented by: Amlodipine Besylate (Amlodipine 5 Mg Tablet) 5 mg PO BID [facility] Last Admin: 12/27/19 20:50 Dose: 5 mg Documented by: Aspirin (Aspirin E.C. 81 Mg Tablet) 81 mg PO DAILY [facility] Last Admin: 12/27/19 08:12 Dose: 81 mg Documented by: Dexamethasone (Dexamethasone 4 Mg Tablet) 6 mg PO DAILY@0800 [facility] Stop: 01/01/20 08:01 Last Admin: 12/27/19 08:11 Dose: 6 mg Documented by: Enoxaparin Sodium (Enoxaparin 100 Mg/Ml Syringe) 90 mg 1 mg/kg (90 mg) SC Q12 [facility] Last Admin: 12/27/19 20:50 Dose: 90 mg Documented by: Furosemide (Furosemide 40 Mg Tablet) 40 mg PO DAILY [facility] Last Admin: 12/27/19 08:13 Dose: 40 mg Documented by: Sodium Chloride () 250 mls @ 15 mls/hr IV .[id number] PRN PRN Reason: Saline Flush Last Infusion: 12/26/19 21:04 Dose: 0 mls/hr Documented by: Sodium Chloride () 250 mls @ 15 mls/hr IV .[id number] PRN PRN Reason: Additional IVPB Infusion Insulin Human Lispro (Insulin Lispro 100 Unit/Ml Insuln.Pen) 0 unit SC TIDCM [facility], [facility]; Protocol Last Admin: 12/27/19 17:01 Dose: 2 units Documented by: Isosorbide Mononitrate (Isosorbide Mononitrate 60 Mg Tablet) 60 mg PO QHS [facility] Last Admin: 12/27/19 20:50 Dose: 60 mg Documented by: Losartan Potassium (Losartan Potassium 50 Mg Tablet) 50 mg PO BID [facility] Last Admin: 12/27/19 20:50 Dose: 50 mg Documented by: Metoprolol Tartrate (Metoprolol Tartrate 50 Mg Tablet) 50 mg PO BID [facility] Last Admin: 12/27/19 20:51 Dose: 50 mg Documented by: Metoprolol Tartrate (Metoprolol Tartrate 5 Mg/5 Ml Vial) 5 mg IV Q6H PRN PRN PRN Reason: HR > 120 Last Admin: 12/26/19 18:33 Dose: 5 mg Documented by: Ondansetron HCl (Ondansetron 4 Mg/2 Ml Vial) 4 mg IV Q8H PRN PRN PRN Reason: NAUSEA/VOMITING Oxycodone HCl (Oxycodone 5 Mg Tablet) 5 mg PO Q4H PRN PRN PRN Reason: Pain Score 6-10 Last Admin: 12/24/19 22:38 Dose: 5 mg Documented by: Pantoprazole Sodium (Pantoprazole Sodium 20 Mg Tablet) 20 mg PO BID [facility] Last Admin: 12/27/19 20:50 Dose: 20 mg Documented by: Phenol/Menthol (Phenol/Sodium Phenolate 180ml) 3 spray MM Q2H PRN PRN PRN Reason: SORE THROAT Last Admin: 12/26/19 21:01 Dose: 3 spray Documented by: Pravastatin Sodium (Pravastatin 40 Mg Tablet) 40 mg PO QHS [facility] Last Admin: 12/27/19 20:51 Dose: 40 mg Documented by: Sertraline HCl (Sertraline 50 Mg Tablet) 25 mg PO QHS [facility] Last Admin: 12/27/19 20:50 Dose: 25 mg Documented by: Sodium Chloride (0.9% Saline Lock 10 Ml Syringe) 10 - 40 ml IV UD PRN PRN Reason: SALINE FLUSH Last Admin: 12/27/19 10:52 Dose: 10 ml Documented by: Tamsulosin HCl (Tamsulosin Hcl 0.4 Mg Capsule) 0.4 mg PO DAILY [facility] Last Admin: 12/27/19 08:13 Dose: 0.4 mg Documented by: STROKE Vital Signs/Narrative: Vital Signs Temp Pulse Resp BP Pulse Ox 12/28/19 05:00 97.4 F L 62 20 H 133/74 H 94 12/28/19 04:30 65 22 H 93 Medical Necessity - Tobacco Use Smoking Status: Former smoker Tobacco Use: Non-smoker Assessment/Plan All Active Problems (Last Reviewed 12/23/19 @ 16:[address] 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 * blood cultures negative * urine for strep and Legionella were also negative * # CKD 3 * Cr is 1.20 today, and stable * #Hypokalemia: K is 3.4 today. Will replace and monitor #Hypertension: on amlodipine 5mg bid, losartan and metoprolol #Afib: currently rate controlled. On metoprolol 50mg bid. DVT prophylaxis: lovenox Inpatient E&M: [id number] Subs Hosp L2
[2019-12-28] MEDS: dexAMETHasone 4 MG Tablet 6 MG PO (09:24)
[2019-12-28] MEDS: Aspirin E.C. 81 MG Tablet PO (09:25)
[2019-12-28] MEDS: Losartan Potassium 50 MG Tablet PO ×2 (09:25→21:06)
[2019-12-28] MEDS: Metoprolol Tartrate 50 MG Tablet PO ×2 (09:25→21:06)
[2019-12-28] MEDS: Furosemide 40 MG Tablet PO (09:25)
[2019-12-28] MEDS: Pantoprazole Sodium 20 MG Tablet PO ×2 (09:26→21:06)
[2019-12-28] MEDS: Enoxaparin 100 MG/ML Syringe 90 MG SC ×2 (09:26→21:07)
[2019-12-28] MEDS: amLODIPine 5 MG Tablet PO ×2 (09:26→21:06)
[2019-12-28] MEDS: Acetaminophen 325 MG Tablet 650 MG PO ×2 (09:36→21:30)
[2019-12-28 11:25] LABS: Bedside Glucose 99 mg/dL (70-110)
[2019-12-28 16:25] LABS: Bedside Glucose 128 mg/dL (70-110)
[2019-12-28 16:31] LABS: Bedside Glucose 208 mg/dL (70-110)
--- NOTE | 2019-12-28 17:07 | PCM.PN.ID ---
Patient Problems: Active and Suspected Problems (Last Reviewed 12/23/19 @ 16:[address] Ilan Paulino, DO) Acute respiratory failure with hypoxia (Acute) Bilateral pneumonia (Acute) Sepsis (Acute) Elevated serum creatinine (Acute) COVID-19 (Acute) Subjective: Feeling better, no fever, less cough, energy improved - Physical Exam Vitals/I&O's: Vital Signs Temp Pulse Resp BP Pulse Ox 97.7 F L 80 20 H 128/86 H 95 12/28/19 12:33 12/28/19 14:36 12/28/19 14:36 12/28/19 12:33 12/28/19 12:33 Oxygen Flow Rate (L/min) 15 Oxygen Delivery Method Nasal Cannula Weight: 92.4 kg Body Mass Index (BMI) 29.9 Intake and Output for Last 24 Hours 12/26/19 12/27/19 12/28/19 23:59 23:59 23:59 Intake Total 827.0 / 827.0 540 / 540 480 / 480 Output Total 845 / 845 2500 / 2500 825 / 825 Balance -18.0 / -18.0 -1960 / -1960 -345 / -345 General: Alert, Cooperative, No apparent distress Lungs: Diminished Cardiovascular: Regular rate, Regular Rhythm Abdomen: Soft, Non Tender, Non-Distended Skin: No rashes Microbiology Past 72 Hours 12/23/19 11:05 Blood Culture (Wb) - Anticubital Left Blood Culture - Final No growth in 5 days. 12/27/19 23:40 Sputum, Expectorated/Coughed Gram Stain - Final Laboratory Results 12/27/19 16:58: POC Glucose 150 H 12/28/19 06:40: WBC 4.8, RBC 4.31 L, Hgb 13.4, Hct 40.7, MCV 94.4 H, MCH 31.1, MCHC 32.9, RDW Std Deviation 44.3 H, RDW Coeff of Jamar 12.8, Plt Count 137 L, MPV 9.8, Immature Gran % (Auto) 0.600, Neut % (Auto) 70.4 H, Lymph % (Auto) 16.4 L, Morrison % (Auto) 12.4 H, Eos % (Auto) 0.0, Baso % (Auto) 0.2, Absolute Neuts (auto) 3.4, Absolute Lymphs (auto) 0.79 L, Nucleated RBC % 0, Differential Comment SCANNED 12/28/19 06:40: Sodium 143, Potassium 3.4 L, Chloride 108 H, Carbon Dioxide 29.0, Anion Gap 6, BUN 46 H, Creatinine 1.08, Estim Creat Clear Calc 58.20, Est GFR (MDRD) Af Amer 85, Est GFR (MDRD) Non-Af 70, BUN/Creatinine Ratio 42.6 H, Glucose 101, Calcium 9.0, Total Bilirubin 0.60, AST 38 H, ALT 33, Alkaline Phosphatase 54, Total Protein 6.4, Albumin 3.0 L, Globulin 3.4, Albumin/Globulin Ratio 0.9 12/28/19 09:14: POC Glucose 99 12/28/19 12:36: POC Glucose 128 H 12/28/19 16:21: POC Glucose 208 H Current Medications Acetaminophen (Acetaminophen 325 Mg Tablet) 650 mg PO Q6H PRN PRN PRN Reason: Pain Score 1-10/Temp > 100.7 F Last Admin: 12/28/19 09:36 Dose: 650 mg Documented by: Albuterol Sulfate (Albuterol Sulfate 8 Gm Inhaler (60 Puffs)) 2 puff INHALATION Q4H PRN PRN PRN Reason: WHEEZING Albuterol/Ipratropium (Ipratropium/Albuterol Sulfate 3 Ml Ampul.Neb) 3 ml INHALATION Q6HWA.RT [facility] Last Admin: 12/28/19 14:07 Dose: 3 ml Documented by: Amlodipine Besylate (Amlodipine 5 Mg Tablet) 5 mg PO BID [facility] Last Admin: 12/28/19 09:26 Dose: 5 mg Documented by: Aspirin (Aspirin E.C. 81 Mg Tablet) 81 mg PO DAILY [facility] Last Admin: 12/28/19 09:25 Dose: 81 mg Documented by: Dexamethasone (Dexamethasone 4 Mg Tablet) 6 mg PO DAILY@0800 [facility] Stop: 01/01/20 08:01 Last Admin: 12/28/19 09:24 Dose: 6 mg Documented by: Enoxaparin Sodium (Enoxaparin 100 Mg/Ml Syringe) 90 mg 1 mg/kg (90 mg) SC Q12 [facility] Last Admin: 12/28/19 09:26 Dose: 90 mg Documented by: Furosemide (Furosemide 40 Mg Tablet) 40 mg PO DAILY [facility] Last Admin: 12/28/19 09:25 Dose: 40 mg Documented by: Sodium Chloride () 250 mls @ 15 mls/hr IV .[id number] PRN PRN Reason: Saline Flush Last Infusion: 12/26/19 21:04 Dose: 0 mls/hr Documented by: Sodium Chloride () 250 mls @ 15 mls/hr IV .[id number] PRN PRN Reason: Additional IVPB Infusion Insulin Human Lispro (Insulin Lispro 100 Unit/Ml Insuln.Pen) 0 unit SC TIDCM [facility]; Protocol Last Admin: 12/28/19 12:40 Dose: Not Given Documented by: Isosorbide Mononitrate (Isosorbide Mononitrate 60 Mg Tablet) 60 mg PO QHS [facility] Last Admin: 12/27/19 20:50 Dose: 60 mg Documented by: Losartan Potassium (Losartan Potassium 50 Mg Tablet) 50 mg PO BID [facility] Last Admin: 12/28/19 09:25 Dose: 50 mg Documented by: Metoprolol Tartrate (Metoprolol Tartrate 50 Mg Tablet) 50 mg PO BID [facility] Last Admin: 12/28/19 09:25 Dose: 50 mg Documented by: Metoprolol Tartrate (Metoprolol Tartrate 5 Mg/5 Ml Vial) 5 mg IV Q6H PRN PRN PRN Reason: HR > 120 Last Admin: 12/26/19 18:33 Dose: 5 mg Documented by: Ondansetron HCl (Ondansetron 4 Mg/2 Ml Vial) 4 mg IV Q8H PRN PRN PRN Reason: NAUSEA/VOMITING Oxycodone HCl (Oxycodone 5 Mg Tablet) 5 mg PO Q4H PRN PRN PRN Reason: Pain Score 6-10 Last Admin: 12/24/19 22:38 Dose: 5 mg Documented by: Pantoprazole Sodium (Pantoprazole Sodium 20 Mg Tablet) 20 mg PO BID [facility] Last Admin: 12/28/19 09:26 Dose: 20 mg Documented by: Phenol/Menthol (Phenol/Sodium Phenolate 180ml) 3 spray MM Q2H PRN PRN PRN Reason: SORE THROAT Last Admin: 12/26/19 21:01 Dose: 3 spray Documented by: Pravastatin Sodium (Pravastatin 40 Mg Tablet) 40 mg PO QHS [facility] Last Admin: 12/27/19 20:51 Dose: 40 mg Documented by: Sertraline HCl (Sertraline 50 Mg Tablet) 25 mg PO QHS [facility] Last Admin: 12/27/19 20:50 Dose: 25 mg Documented by: Sodium Chloride (0.9% Saline Lock 10 Ml Syringe) 10 - 40 ml IV UD PRN PRN Reason: SALINE FLUSH Last Admin: 12/27/19 10:52 Dose: 10 ml Documented by: Tamsulosin HCl (Tamsulosin Hcl 0.4 Mg Capsule) 0.4 mg PO DAILY [facility] Last Admin: 12/27/19 08:13 Dose: 0.4 mg Documented by: Medical Necessity - Tobacco Use Smoking Status: Former smoker Tobacco Use: Non-smoker Route of nutrition/ use of supplements: [] Nutritional Intake: [] IV Site: [] May Catheter: [] - Assessment/Plan Antibiotics: [] Assessment/Plan: [] Active and Suspected Problems (Last Reviewed 12/23/19 @ 16:[address] Ilan Paulino, DO) Acute respiratory failure with hypoxia (Acute) Bilateral pneumonia (Acute) Sepsis (Acute) Elevated serum creatinine (Acute) COVID-19 (Acute) Covid with hypoxia - On dex, completed remdesivir, and given plasma. Still on 15L. CT showed no PE. Feeling better. Will follow
[2019-12-28] MEDS: Tamsulosin HCl 0.4 MG Capsule PO (17:28)
[2019-12-28] MEDS: Insulin Lispro 100 UNIT/ML INSULN.PEN SC (17:29)
[2019-12-28] MEDS: Isosorbide Mononitrate 60 MG Tablet PO (21:06)
[2019-12-28] MEDS: Sertraline 50 MG Tablet 25 MG PO (21:06)
[2019-12-28] MEDS: Pravastatin 40 MG Tablet PO (21:06)
[2019-12-28 23:26] LABS: Bedside Glucose 168 mg/dL (70-110)
[2019-12-29] VITALS (21 sets, daily range): BP systolic 131–148; BP diastolic 67–89; PULSE 62–132; RESP 12–28; TEMP 36.3–36.8; O2SAT 90–96
[2019-12-29] MEDS: Ipratropium/Albuterol Sulfate 3 ML AMPUL.NEB INHALATION ×3 (07:04→20:27)
--- NOTE | 2019-12-29 07:31 | PN_ITS ---
Patient Problems: Active and Suspected Problems (Last Reviewed 12/23/19 @ 16:[address] Ilan Paulino, DO) Acute respiratory failure with hypoxia (Acute) Bilateral pneumonia (Acute) Sepsis (Acute) Elevated serum creatinine (Acute) COVID-19 (Acute) Subjective: Patient seen and examined. He has no complaints. He still requiring up to 14 L of oxygen. Review systems otherwise negative. Vitals/I&O's: Vital Signs Temp Pulse Resp BP Pulse Ox 97.7 F L 62 20 H 131/67 H 95 12/29/19 05:16 12/29/19 07:06 12/29/19 07:06 12/29/19 05:16 12/29/19 07:06 Oxygen Flow Rate (L/min) 14 Oxygen Delivery Method Nasal Cannula Weight: 200 lb 6.403 oz Body Mass Index (BMI) 29.9 Intake and Output for Last 24 Hours 12/27/19 12/28/19 12/29/19 23:59 23:59 23:59 Intake Total 540 / 540 1200 / 1200 300 / 300 Output Total 2500 / 2500 1400 / 1400 300 / 300 Balance -1960 / -1960 -200 / -200 0 / 0 General: Alert, Oriented x3, Cooperative, No apparent distress HEENT: Atraumatic, PERRLA, EOMI, Normocephalic Oral: Moist Mucosa Neck: Supple, No JVD, Negative Carotid Bruits Lungs: - - diminished breath sounds bibasally, no wheezes or crackles. on 4L of oxygen Cardiovascular: Regular rate, Regular Rhythm, Normal S1, Normal S2, No murmurs Abdomen: Bowel Sounds Present, Soft, Non Tender Extremities: No clubbing, No cyanosis, No edema, Capillary Refill Less than 3 Seconds Skin: No rashes, No breakdown Musculoskeletal: No Tenderness to Palpation of Joints or Extremities Lymphatic: No Cervical, Supraclavicular, or Inguinal Adenopathy Neurological: Cranial nerves II-XII grossly intact, Neuro grossly intact, Motor Exam 5/5 strength throughout Psych/Mental Status: Normal Affect, Appropriate, Alert and oriented to time, place, person, mood and affect Microbiology Past 72 Hours 12/23/19 11:05 Blood Culture (Wb) - Anticubital Left Blood Culture - Final No growth in 5 days. 12/23/19 11:05 Blood Culture (Wb) - Anticubital Left Blood Culture - Final No growth in 5 days. 12/27/19 23:40 Sputum, Expectorated/Coughed Gram Stain - Final Laboratory Results 12/28/19 09:14: POC Glucose 99 12/28/19 12:36: POC Glucose 128 H 12/28/19 16:21: POC Glucose 208 H 12/28/19 21:29: POC Glucose 168 H Diagnostic Data Chest X-Ray 12/23/19 12:20 IMPRESSION: New wedge-shaped peripheral consolidation in the right midlung with mild increased markings at the lung bases and blunting of both costophrenic angles. Pneumonitis associated with Covid 19 should be ruled out. Electronically Signed: Jake Bazzi, at 12:43 EDT , Service support , Chest CTA 12/25/19 13:34 IMPRESSION: 1. No pulmonary embolism 2. Severe emphysema, viral infection. 3. Mild pulmonary arterial hypertension, right heart enlargement. Electronically Signed: Zach Kaplan, at 17:34 EST Tel , Service support , Current Medications Acetaminophen (Acetaminophen 325 Mg Tablet) 650 mg PO Q6H PRN PRN PRN Reason: Pain Score 1-10/Temp > 100.7 F Last Admin: 12/28/19 21:30 Dose: 650 mg Documented by: Albuterol Sulfate (Albuterol Sulfate 8 Gm Inhaler (60 Puffs)) 2 puff INHALATION Q4H PRN PRN PRN Reason: WHEEZING Albuterol/Ipratropium (Ipratropium/Albuterol Sulfate 3 Ml Ampul.Neb) 3 ml INHALATION Q6HWA.RT REPLACED BY [facility] Last Admin: 12/29/19 07:04 Dose: 3 ml Documented by: Amlodipine Besylate (Amlodipine 5 Mg Tablet) 5 mg PO BID REPLACED BY [facility] Last Admin: 12/28/19 21:06 Dose: 5 mg Documented by: Aspirin (Aspirin E.C. 81 Mg Tablet) 81 mg PO DAILY [facility]PL[facility]ED BY [facility] Last Admin: 12/28/19 09:25 Dose: 81 mg Documented by: Dexamethasone (Dexamethasone 4 Mg Tablet) 6 mg PO DAILY@0800 REPLACED BY [facility] Stop: 01/01/20 08:01 Last Admin: 12/28/19 09:24 Dose: 6 mg Documented by: Enoxaparin Sodium (Enoxaparin 100 Mg/Ml Syringe) 90 mg 1 mg/kg (90 mg) SC Q12 REPLACED BY [facility] Last Admin: 12/28/19 21:07 Dose: 90 mg Documented by: Furosemide (Furosemide 40 Mg Tablet) 40 mg PO DAILY [facility]PL[facility] BY [facility] Last Admin: 12/28/19 09:25 Dose: 40 mg Documented by: Sodium Chloride () 250 mls @ 15 mls/hr IV .[id number] PRN PRN Reason: Saline Flush Last Infusion: 12/26/19 21:04 Dose: 0 mls/hr Documented by: Sodium Chloride () 250 mls @ 15 mls/hr IV .[id number] PRN PRN Reason: Additional IVPB Infusion Insulin Human Lispro (Insulin Lispro 100 Unit/Ml Insuln.Pen) 0 unit SC TIDCM REPLACED BY [facility]; Protocol Last Admin: 12/28/19 17:29 Dose: 4 units Documented by: Isosorbide Mononitrate (Isosorbide Mononitrate 60 Mg Tablet) 60 mg PO QHS REPLACED BY [facility] Last Admin: 12/28/19 21:06 Dose: 60 mg Documented by: Losartan Potassium (Losartan Potassium 50 Mg Tablet) 50 mg PO BID REPLACED BY [facility] Last Admin: 12/28/19 21:06 Dose: 50 mg Documented by: Metoprolol Tartrate (Metoprolol Tartrate 50 Mg Tablet) 50 mg PO BID REPLACED BY [facility] Last Admin: 12/28/19 21:06 Dose: 50 mg Documented by: Metoprolol Tartrate (Metoprolol Tartrate 5 Mg/5 Ml Vial) 5 mg IV Q6H PRN PRN PRN Reason: HR > 120 Last Admin: 12/26/19 18:33 Dose: 5 mg Documented by: Ondansetron HCl (Ondansetron 4 Mg/2 Ml Vial) 4 mg IV Q8H PRN PRN PRN Reason: NAUSEA/VOMITING Oxycodone HCl (Oxycodone 5 Mg Tablet) 5 mg PO Q4H PRN PRN PRN Reason: Pain Score 6-10 Last Admin: 12/24/19 22:38 Dose: 5 mg Documented by: Pantoprazole Sodium (Pantoprazole Sodium 20 Mg Tablet) 20 mg PO BID REPLACED BY [facility] Last Admin: 12/28/19 21:06 Dose: 20 mg Documented by: Phenol/Menthol (Phenol/Sodium Phenolate 180ml) 3 spray MM Q2H PRN PRN PRN Reason: SORE THROAT Last Admin: 12/26/19 21:01 Dose: 3 spray Documented by: Pravastatin Sodium (Pravastatin 40 Mg Tablet) 40 mg PO QHS REPLACED BY [facility] Last Admin: 12/28/19 21:06 Dose: 40 mg Documented by: Sertraline HCl (Sertraline 50 Mg Tablet) 25 mg PO QHS REPLACED BY [facility] Last Admin: 12/28/19 21:06 Dose: 25 mg Documented by: Sodium Chloride (0.9% Saline Lock 10 Ml Syringe) 10 - 40 ml IV UD PRN PRN Reason: SALINE FLUSH Last Admin: 12/27/19 10:52 Dose: 10 ml Documented by: Tamsulosin HCl (Tamsulosin Hcl 0.4 Mg Capsule) 0.4 mg PO DAILY REPLACED BY [facility] Last Admin: 12/28/19 17:28 Dose: 0.4 mg Documented by: STROKE Vital Signs/Narrative: Vital Signs Temp Pulse Resp BP Pulse Ox 12/29/19 07:06 62 20 H 95 12/29/19 05:16 97.7 F L 65 18 131/67 H 96 12/29/19 04:55 92 12/29/19 04:02 85 Medical Necessity - Tobacco Use Smoking Status: Former smoker Tobacco Use: Non-smoker Assessment/Plan All Active Problems (Last Reviewed 12/23/19 @ 16:[address] 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 * blood cultures negative * urine for strep and Legionella were also negative * # CKD 3 * Cr is 1.20 today, and stable * #Hypokalemia: K is 3.4 today. Will replace and monitor #Hypertension: on amlodipine 5mg bid, losartan and metoprolol #Afib: currently rate controlled. On metoprolol 50mg bid. DVT prophylaxis: lovenox Inpatient E&M: [id number] [facility] H[facility] L3
[2019-12-29] MEDS: dexAMETHasone 4 MG Tablet 6 MG PO (08:16)
[2019-12-29] MEDS: Aspirin E.C. 81 MG Tablet PO (08:16)
[2019-12-29] MEDS: Tamsulosin HCl 0.4 MG Capsule PO (08:16)
[2019-12-29] MEDS: Losartan Potassium 50 MG Tablet PO ×2 (08:16→22:58)
[2019-12-29] MEDS: Pantoprazole Sodium 20 MG Tablet PO ×2 (08:17→22:59)
[2019-12-29] MEDS: amLODIPine 5 MG Tablet PO ×2 (08:17→22:59)
[2019-12-29] MEDS: Furosemide 40 MG Tablet PO (08:17)
[2019-12-29] MEDS: Enoxaparin 100 MG/ML Syringe 90 MG SC ×2 (08:17→22:59)
[2019-12-29] MEDS: Metoprolol Tartrate 50 MG Tablet PO ×2 (08:17→22:59)
[2019-12-29] MEDS: Acetaminophen 325 MG Tablet 650 MG PO ×2 (08:19→22:59)
[2019-12-29] MEDS: 0.9% Saline Lock 10 ML Syringe IV ×2 (08:28→17:56)
[2019-12-29 08:53] LABS: Anion Gap 6 (5-15); BUN 38 mg/dL (7-18); BUN/Creat Ratio 38.1 RATIO (10-20); Calcium,Total 9.3 mg/dL (8.5-10.1); Chloride 105 mmol/L (98-107); EST Glomerular Filtration Rate 77 mL/min (>60); Est Glom Filt Rate - Afr Amer 93 mL/min (>60); Estimated Creatinine Clearance 62.86 ml/min; Glucose 90 mg/dL (74-106); Potassium 3.4 mmol/L (3.5-5.1); Sodium Level 141 mmol/L (136-145)
[2019-12-29 10:00] LABS: Bedside Glucose 84 mg/dL (70-110)
[2019-12-29] MEDS: Insulin Lispro 100 UNIT/ML INSULN.PEN SC ×2 (11:45→16:15)
[2019-12-29 12:06] LABS: Bedside Glucose 161 mg/dL (70-110)
--- NOTE | 2019-12-29 12:58 | PCM.PN.PUL ---
Patient Problems: Active and Suspected Problems (Last Reviewed 12/23/19 @ 16:[address] Ilan Paulino, DO) Acute respiratory failure with hypoxia (Acute) Bilateral pneumonia (Acute) Sepsis (Acute) Elevated serum creatinine (Acute) COVID-19 (Acute) Subjective: The patient was seen and examined at the bedside this morning. Events from the last 24 hours have been reviewed. The patient is currently afebrile, hemodynamically stable and maintaining appropriate oxygen saturations on 10 L/min via nasal cannula. Overall, the patient's oxygenation status is slowly improving. The patient has already received convalescent plasma and completed his treatment course of remdesivir. He remains on scheduled Decadron daily. Potassium is low this morning at 3.4. Objective: The patient's most recent lab work, culture data and imaging studies have all been personally reviewed. Surface echocardiogram from September 2019 revealed an ejection fraction of 55% and stage I diastolic dysfunction. Pulmonary artery systolic pressure was estimated to be 57 mmHg. Coronavirus PCR was positive on December 22. Strep and urine Legionella antigens were negative. - Physical Exam Vitals/I&O's: Vital Signs Temp Pulse Resp BP Pulse Ox 98.0 F 98 20 H 148/75 H 92 12/29/19 08:24 12/29/19 08:24 12/29/19 08:24 12/29/19 08:24 12/29/19 08:26 Oxygen Flow Rate (L/min) 10 Oxygen Delivery Method Nasal Cannula Weight: 200 lb 6.403 oz Body Mass Index (BMI) 29.9 Intake and Output for Last 24 Hours 12/27/19 12/28/19 12/29/19 23:59 23:59 23:59 Intake Total 540 / 540 1200 / 1200 780 / 780 Output Total 2500 / 2500 1400 / 1400 625 / 625 Balance -1960 / -1960 -200 / -200 155 / 155 General: Alert, Cooperative HEENT: Atraumatic, PERRLA, Normocephalic Oral: No Gingival or Mucosal Lesions/ Ulcerations Neck: Supple, No Nodes, Trachea Midline Lungs: No rhonchi, No wheeze, No rales, Diminished Cardiovascular: Regular rate, Regular Rhythm Abdomen: Bowel Sounds Present, Soft, Non Tender Extremities: No clubbing, No cyanosis, No edema Skin: No breakdown Musculoskeletal: No Muscle Wasting Lymphatic: No Cervical, Supraclavicular, or Inguinal Adenopathy Neurological: Neuro grossly intact Psych/Mental Status: Normal Affect, Appropriate Labs (Last 48 Hours) 12/27/19 12/28/19 12/28/19 16:58 06:40 06:40 WBC 4.8 RBC 4.31 L Hgb 13.4 Hct 40.7 MCV 94.4 H MCH 31.1 MCHC 32.9 RDW Std Deviation 44.3 H RDW Coeff of Jamar 12.8 Plt Count 137 L MPV 9.8 Immature Gran % (Auto) 0.600 Neut % (Auto) 70.4 H Lymph % (Auto) 16.4 L Hitchcock % (Auto) 12.4 H Eos % (Auto) 0.0 Baso % (Auto) 0.2 Absolute Neuts (auto) 3.4 Absolute Lymphs (auto) 0.79 L Nucleated RBC % 0 Differential Comment SCANNED Sodium 143 Potassium 3.4 L Chloride 108 H Carbon Dioxide 29.0 Anion Gap 6 BUN 46 H Creatinine 1.08 Estim Creat Clear Calc 58.20 Est GFR (MDRD) Af Amer 85 Est GFR (MDRD) Non-Af 70 BUN/Creatinine Ratio 42.6 H Glucose 101 Calcium 9.0 Total Bilirubin 0.60 AST 38 H ALT 33 Alkaline Phosphatase 54 Total Protein 6.4 Albumin 3.0 L Globulin 3.4 Albumin/Globulin Ratio 0.9 POC Glucose 150 H 12/28/19 12/28/19 12/28/19 09:14 12:36 16:21 WBC RBC Hgb Hct MCV MCH MCHC RDW Std Deviation RDW Coeff of Jamar Plt Count MPV Immature Gran % (Auto) Neut % (Auto) Lymph % (Auto) Hitchcock % (Auto) Eos % (Auto) Baso % (Auto) Absolute Neuts (auto) Absolute Lymphs (auto) Nucleated RBC % Differential Comment Sodium Potassium Chloride Carbon Dioxide Anion Gap BUN Creatinine Estim Creat Clear Calc Est GFR (MDRD) Af Amer Est GFR (MDRD) Non-Af BUN/Creatinine Ratio Glucose Calcium Total Bilirubin AST ALT Alkaline Phosphatase Total Protein Albumin Globulin Albumin/Globulin Ratio POC Glucose 99 128 H 208 H 12/28/19 12/29/19 12/29/19 21:29 08:13 08:22 WBC RBC Hgb Hct MCV MCH MCHC RDW Std Deviation RDW Coeff of Jamar Plt Count MPV Immature Gran % (Auto) Neut % (Auto) Lymph % (Auto) Hitchcock % (Auto) Eos % (Auto) Baso % (Auto) Absolute Neuts (auto) Absolute Lymphs (auto) Nucleated RBC % Differential Comment Sodium 141 Potassium 3.4 L Chloride 105 Carbon Dioxide 30.0 Anion Gap 6 BUN 38 H Creatinine 1.00 Estim Creat Clear Calc 62.86 Est GFR (MDRD) Af Amer 93 Est GFR (MDRD) Non-Af 77 BUN/Creatinine Ratio 38.1 H Glucose 90 Calcium 9.3 Total Bilirubin AST ALT Alkaline Phosphatase Total Protein Albumin Globulin Albumin/Globulin Ratio POC Glucose 168 H 84 12/29/19 11:45 WBC RBC Hgb Hct MCV MCH MCHC RDW Std Deviation RDW Coeff of Jamar Plt Count MPV Immature Gran % (Auto) Neut % (Auto) Lymph % (Auto) Hitchcock % (Auto) Eos % (Auto) Baso % (Auto) Absolute Neuts (auto) Absolute Lymphs (auto) Nucleated RBC % Differential Comment Sodium Potassium Chloride Carbon Dioxide Anion Gap BUN Creatinine Estim Creat Clear Calc Est GFR (MDRD) Af Amer Est GFR (MDRD) Non-Af BUN/Creatinine Ratio Glucose Calcium Total Bilirubin AST ALT Alkaline Phosphatase Total Protein Albumin Globulin Albumin/Globulin Ratio POC Glucose 161 H Microbiology 12/27/19 23:40 Sputum, Expectorated/Coughed Gram Stain - Final 12/27/19 23:40 Sputum, Expectorated/Coughed Respiratory Culture - Preliminary Possible Fungus 12/23/19 11:05 Blood Culture (Wb) - Anticubital Left Blood Culture - Final No growth in 5 days. 12/23/19 11:05 Blood Culture (Wb) - Anticubital Left Blood Culture - Final No growth in 5 days. Clinical Impression(s) from Imaging Studies Chest X-Ray 12/23/19 12:20 IMPRESSION: New wedge-shaped peripheral consolidation in the right midlung with mild increased markings at the lung bases and blunting of both costophrenic angles. Pneumonitis associated with Covid 19 should be ruled out. Electronically Signed: Jake Bazzi, at 12:43 EDT , Service support , Chest CTA 12/25/19 13:34 IMPRESSION: 1. No pulmonary embolism 2. Severe emphysema, viral infection. 3. Mild pulmonary arterial hypertension, right heart enlargement. Electronically Signed: Zach Kaplan, at 17:34 EST Tel , Service support , Current Medications Acetaminophen (Acetaminophen 325 Mg Tablet) 650 mg PO Q6H PRN PRN PRN Reason: Pain Score 1-10/Temp > 100.7 F Last Admin: 12/29/19 08:19 Dose: 650 mg Documented by: Albuterol Sulfate (Albuterol Sulfate 8 Gm Inhaler (60 Puffs)) 2 puff INHALATION Q4H PRN PRN PRN Reason: WHEEZING Albuterol/Ipratropium (Ipratropium/Albuterol Sulfate 3 Ml Ampul.Neb) 3 ml INHALATION Q6HWA.RT [facility] Last Admin: 12/29/19 07:04 Dose: 3 ml Documented by: Amlodipine Besylate (Amlodipine 5 Mg Tablet) 5 mg PO BID [facility] Last Admin: 12/29/19 08:17 Dose: 5 mg Documented by: Aspirin (Aspirin E.C. 81 Mg Tablet) 81 mg PO DAILY [facility] Last Admin: 12/29/19 08:16 Dose: 81 mg Documented by: Dexamethasone (Dexamethasone 4 Mg Tablet) 6 mg PO DAILY@0800 [facility] Stop: 01/01/20 08:01 Last Admin: 12/29/19 08:16 Dose: 6 mg Documented by: Enoxaparin Sodium (Enoxaparin 100 Mg/Ml Syringe) 90 mg 1 mg/kg (90 mg) SC Q12 [facility] Last Admin: 12/29/19 08:17 Dose: 90 mg Documented by: Furosemide (Furosemide 40 Mg Tablet) 40 mg PO DAILY [facility] Last Admin: 12/29/19 08:17 Dose: 40 mg Documented by: Sodium Chloride () 250 mls @ 15 mls/hr IV .[id number] PRN PRN Reason: Saline Flush Last Infusion: 12/29/19 08:27 Dose: Infused Documented by: Sodium Chloride () 250 mls @ 15 mls/hr IV .[id number] PRN PRN Reason: Additional IVPB Infusion Insulin Human Lispro (Insulin Lispro 100 Unit/Ml Insuln.Pen) 0 unit SC TIDCM [facility]; Protocol Last Admin: 12/29/19 11:45 Dose: 2 units Documented by: Isosorbide Mononitrate (Isosorbide Mononitrate 60 Mg Tablet) 60 mg PO QHS [facility] Last Admin: 12/28/19 21:06 Dose: 60 mg Documented by: Losartan Potassium (Losartan Potassium 50 Mg Tablet) 50 mg PO BID [facility] Last Admin: 12/29/19 08:16 Dose: 50 mg Documented by: Metoprolol Tartrate (Metoprolol Tartrate 50 Mg Tablet) 50 mg PO BID [facility] Last Admin: 12/29/19 08:17 Dose: 50 mg Documented by: Metoprolol Tartrate (Metoprolol Tartrate 5 Mg/5 Ml Vial) 5 mg IV Q6H PRN PRN PRN Reason: HR > 120 Last Admin: 12/26/19 18:33 Dose: 5 mg Documented by: Ondansetron HCl (Ondansetron 4 Mg/2 Ml Vial) 4 mg IV Q8H PRN PRN PRN Reason: NAUSEA/VOMITING Oxycodone HCl (Oxycodone 5 Mg Tablet) 5 mg PO Q4H PRN PRN PRN Reason: Pain Score 6-10 Last Admin: 12/24/19 22:38 Dose: 5 mg Documented by: Pantoprazole Sodium (Pantoprazole Sodium 20 Mg Tablet) 20 mg PO BID [facility] Last Admin: 12/29/19 08:17 Dose: 20 mg Documented by: Phenol/Menthol (Phenol/Sodium Phenolate 180ml) 3 spray MM Q2H PRN PRN PRN Reason: SORE THROAT Last Admin: 12/26/19 21:01 Dose: 3 spray Documented by: Pravastatin Sodium (Pravastatin 40 Mg Tablet) 40 mg PO QHS [facility] Last Admin: 12/28/19 21:06 Dose: 40 mg Documented by: Sertraline HCl (Sertraline 50 Mg Tablet) 25 mg PO QHS [facility] Last Admin: 12/28/19 21:06 Dose: 25 mg Documented by: Sodium Chloride (0.9% Saline Lock 10 Ml Syringe) 10 - 40 ml IV UD PRN PRN Reason: SALINE FLUSH Last Admin: 12/29/19 08:28 Dose: 10 ml Documented by: Tamsulosin HCl (Tamsulosin Hcl 0.4 Mg Capsule) 0.4 mg PO DAILY [facility] Last Admin: 12/29/19 08:16 Dose: 0.4 mg Documented by: Medical Necessity - Tobacco Use Smoking Status: Former smoker Tobacco Use: Non-smoker Assessment/Plan All Active Problems (Last Reviewed 12/23/19 @ 16:[address] 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 Continue to wean supplemental oxygen to maintain saturations at or above 90%. 2. Continue Decadron and Lovenox. Remdesivir has completed. 3. Continue diuresis as tolerated by hemodynamics and renal function. 4. Encourage incentive spirometer use and mobilize patient as tolerated. IMPRESSIONS: 1. Acute hypoxemic respiratory failure Most likely multifactorial in etiology with COVID-19 pneumonia contributing along with an element of pulmonary hypertension secondary to noncompliance with supplemental oxygen previously. The patient also reportedly has a history of COPD of unknown severity. He has already received convalescent plasma and completed a treatment course of remdesivir. The patient will be continued on Decadron to complete a total of 10 days of therapy along with Lovenox. Bronchodilator therapy will also be continued. Plan to continue gentle diuresis as tolerated by hemodynamics and renal function. Continue to wean supplemental oxygen to maintain saturations at or above 90%. 2. Acute kidney injury Improved. Patient appears to be improving with stabilization of hemodynamics and holding of baseline antihypertensives. Cannot exclude an element of ATN secondary to hypoxia. Continue to monitor urine output. No indication for renal replacement therapy. 3. Hypokalemia Electrolyte repletion as ordered. Recheck levels in the morning. 4. Advanced age/obesity/history of lung resection/depression/GERD/hypertension Complicates care, management, recovery and prognosis. Okay to continue medications for depression and GERD. This note was generated with [employer] software. It may contain incorrect words, spelling, and punctuation that were not noted in checking the note before signing. Inpatient E&M: 88571 Subs Hosp L2
[2019-12-29 16:30] LABS: Bedside Glucose 162 mg/dL (70-110)
[2019-12-29] MEDS: Metoprolol Tartrate 5 MG/5 ML Vial IV (17:56)
[2019-12-29] MEDS: Isosorbide Mononitrate 60 MG Tablet PO (22:58)
[2019-12-29] MEDS: Sertraline 50 MG Tablet 25 MG PO (22:59)
[2019-12-29] MEDS: Pravastatin 40 MG Tablet PO (22:59)
[2019-12-30] VITALS (23 sets, daily range): BP systolic 104–132; BP diastolic 60–79; PULSE 49–134; RESP 12–21; TEMP 36.4–36.7; O2SAT 91–95
[2019-12-30 05:43] LABS: Absolute Lymphocyte Count 0.68 X10^3/uL (0.83-4.51); Absolute Neutrophil Count 3.8 X10^3/uL (2.0-7.7); Basophil# 0.01 X10^3/uL; Basophil% 0.2 % (0-1); Eosinophil# 0.02 X10^3/uL; Eosinophils% 0.4 % (0-5); Hematocrit 39.7 % (40-54); Hemoglobin 12.9 g/dL (13.0-16.5); Lymphocyte # 0.68 X10^3/ul (4.0); Lymphocyte % 13.4 % (19-41); Mean Corp Hgb Conc 32.5 g/dL (32-36); Mean Corpuscular Hgb 30.4 pg (27.0-32.0); Mean Corpuscular Volume 93.4 fL (80-94); Mean Platelet Vol. 9.6 fl (6.2-12.0); Monocyte# 0.49 X10^3/uL; Monocyte% 9.7 % (0-10); NRBC Flagged by Analyzer 0 % (0-5); Neutrophil # 3.83 X10^3/uL (2.7-7.7); Neutrophil % 75.5 % (47-70); Platelet Count 149 K/mm3 (150-450); RBC Distribution Width CV 12.8 % (11.6-14.6); RBC Distribution Width SD 43.9 fl (35.1-43.9); Red Blood Count 4.25 M/mm3 (4.6-6.2); White Blood Count 5.1 K/mm3 (4.4-11.0)
[2019-12-30 05:58] LABS: Anion Gap 5 (5-15); BUN 42 mg/dL (7-18); Chloride 107 mmol/L (98-107); EST Glomerular Filtration Rate 77 mL/min (>60); Est Glom Filt Rate - Afr Amer 93 mL/min (>60); Estimated Creatinine Clearance 62.86 ml/min; Glucose 103 mg/dL (74-106); Potassium 3.8 mmol/L (3.5-5.1); Sodium Level 142 mmol/L (136-145)
[2019-12-30] MEDS: Ipratropium/Albuterol Sulfate 3 ML AMPUL.NEB INHALATION ×3 (07:14→18:59)
[2019-12-30 07:21] LABS: Bedside Glucose 177 mg/dL (70-110)
--- NOTE | 2019-12-30 07:40 | PCM.PN.HOSP ---
Patient Problems: Active and Suspected Problems (Last Reviewed 12/23/19 @ 16:[address] Ilan Paulino, DO) Acute respiratory failure with hypoxia (Acute) Bilateral pneumonia (Acute) Sepsis (Acute) Elevated serum creatinine (Acute) COVID-19 (Acute) Subjective: Patient seen and examined. He is now on 7 L of oxygen by nasal cannula. He has no complaints this morning. He had few episodes of episodic tachycardia yesterday. On IV metoprolol as needed. Review of systems otherwise negative. Vitals/I&O's: Vital Signs Temp Pulse Resp BP Pulse Ox 97.7 F L 87 20 H 104/79 91 12/30/19 04:46 12/30/19 07:17 12/30/19 07:16 12/30/19 04:46 12/30/19 07:17 Oxygen Flow Rate (L/min) 6 Oxygen Delivery Method Nasal Cannula Weight: 202 lb 6.15 oz Body Mass Index (BMI) 29.9 Intake and Output for Last 24 Hours 12/28/19 12/29/19 12/30/19 23:59 23:59 23:59 Intake Total 1200 / 1200 1260 / 1260 450 / 450 Output Total 1400 / 1400 625 / 625 700 / 700 Balance -200 / -200 635 / 635 -250 / -250 General: Alert, Oriented x3, Cooperative, No apparent distress HEENT: Atraumatic, PERRLA, EOMI, Normocephalic Oral: Moist Mucosa Neck: Supple, No JVD, Negative Carotid Bruits Lungs: - - diminished breath sounds bibasally, no wheezes or crackles. on 7L of oxygen Cardiovascular: Regular rate, Regular Rhythm, Normal S1, Normal S2, No murmurs Abdomen: Bowel Sounds Present, Soft, Non Tender Extremities: No clubbing, No cyanosis, No edema, Capillary Refill Less than 3 Seconds Skin: No rashes, No breakdown Musculoskeletal: No Tenderness to Palpation of Joints or Extremities Lymphatic: No Cervical, Supraclavicular, or Inguinal Adenopathy Neurological: Cranial nerves II-XII grossly intact, Neuro grossly intact, Motor Exam 5/5 strength throughout Psych/Mental Status: Normal Affect, Appropriate, Alert and oriented to time, place, person, mood and affect Microbiology Past 72 Hours 12/27/19 23:40 Sputum, Expectorated/Coughed Gram Stain - Final 12/27/19 23:40 Sputum, Expectorated/Coughed Respiratory Culture - Preliminary Possible Fungus 12/23/19 11:05 Blood Culture (Wb) - Anticubital Left Blood Culture - Final No growth in 5 days. 12/23/19 11:05 Blood Culture (Wb) - Anticubital Left Blood Culture - Final No growth in 5 days. Laboratory Results 12/29/19 08:13: POC Glucose 84 12/29/19 08:22: Sodium 141, Potassium 3.4 L, Chloride 105, Carbon Dioxide 30.0, Anion Gap 6, BUN 38 H, Creatinine 1.00, Estim Creat Clear Calc 62.86, Est GFR (MDRD) Af Amer 93, Est GFR (MDRD) Non-Af 77, BUN/Creatinine Ratio 38.1 H, Glucose 90, Calcium 9.3 12/29/19 11:45: POC Glucose 161 H 12/29/19 16:14: POC Glucose 162 H 12/29/19 22:42: POC Glucose 177 H 12/30/19 05:20: WBC 5.1, RBC 4.25 L, Hgb 12.9 L, Hct 39.7 L, MCV 93.4, MCH 30.4, MCHC 32.5, RDW Std Deviation 43.9, RDW Coeff of Jamar 12.8, Plt Count 149 L, MPV 9.6, Immature Gran % (Auto) 0.800, Neut % (Auto) 75.5 H, Lymph % (Auto) 13.4 L, Darke % (Auto) 9.7, Eos % (Auto) 0.4, Baso % (Auto) 0.2, Absolute Neuts (auto) 3.8, Absolute Lymphs (auto) 0.68 L, Nucleated RBC % 0 12/30/19 05:20: Sodium 142, Potassium 3.8, Chloride 107, Carbon Dioxide 30.0, Anion Gap 5, BUN 42 H, Creatinine 1.00, Estim Creat Clear Calc 62.86, Est GFR (MDRD) Af Amer 93, Est GFR (MDRD) Non-Af 77, BUN/Creatinine Ratio 42.0 H, Glucose 103, Calcium 9.0 Diagnostic Data Chest X-Ray 12/23/19 12:20 IMPRESSION: New wedge-shaped peripheral consolidation in the right midlung with mild increased markings at the lung bases and blunting of both costophrenic angles. Pneumonitis associated with Covid 19 should be ruled out. Electronically Signed: Jake Rose Mary, at 12:43 EDT , Service support , Chest CTA 12/25/19 13:34 IMPRESSION: 1. No pulmonary embolism 2. Severe emphysema, viral infection. 3. Mild pulmonary arterial hypertension, right heart enlargement. Electronically Signed: Evenarinder Eusebio, at 17:34 EST Tel , Service support , Current Medications Acetaminophen (Acetaminophen 325 Mg Tablet) 650 mg PO Q6H PRN PRN PRN Reason: Pain Score 1-10/Temp > 100.7 F Last Admin: 12/29/19 22:59 Dose: 650 mg Documented by: Albuterol Sulfate (Albuterol Sulfate 8 Gm Inhaler (60 Puffs)) 2 puff INHALATION Q4H PRN PRN PRN Reason: WHEEZING Albuterol/Ipratropium (Ipratropium/Albuterol Sulfate 3 Ml Ampul.Neb) 3 ml INHALATION Q6HWA.RT [facility] Last Admin: 12/30/19 07:14 Dose: 3 ml Documented by: Amlodipine Besylate (Amlodipine 5 Mg Tablet) 5 mg PO BID [facility] Last Admin: 12/29/19 22:59 Dose: 5 mg Documented by: Aspirin (Aspirin E.C. 81 Mg Tablet) 81 mg PO DAILY [facility] Last Admin: 12/29/19 08:16 Dose: 81 mg Documented by: Dexamethasone (Dexamethasone 4 Mg Tablet) 6 mg PO DAILY@0800 [facility] Stop: 01/01/20 08:01 Last Admin: 12/29/19 08:16 Dose: 6 mg Documented by: Enoxaparin Sodium (Enoxaparin 100 Mg/Ml Syringe) 90 mg 1 mg/kg (90 mg) SC Q12 [facility] Last Admin: 12/29/19 22:59 Dose: 90 mg Documented by: Furosemide (Furosemide 40 Mg Tablet) 40 mg PO DAILY [facility] Last Admin: 12/29/19 08:17 Dose: 40 mg Documented by: Sodium Chloride () 250 mls @ 15 mls/hr IV .[id number] PRN PRN Reason: Saline Flush Last Infusion: 12/29/19 08:27 Dose: Infused Documented by: Sodium Chloride () 250 mls @ 15 mls/hr IV .[id number] PRN PRN Reason: Additional IVPB Infusion Insulin Human Lispro (Insulin Lispro 100 Unit/Ml Insuln.Pen) 0 unit SC TIDCM [facility]; Protocol Last Admin: 12/29/19 16:15 Dose: 2 units Documented by: Isosorbide Mononitrate (Isosorbide Mononitrate 60 Mg Tablet) 60 mg PO QHS [facility] Last Admin: 12/29/19 22:58 Dose: 60 mg Documented by: Losartan Potassium (Losartan Potassium 50 Mg Tablet) 50 mg PO BID [facility] Last Admin: 12/29/19 22:58 Dose: 50 mg Documented by: Metoprolol Tartrate (Metoprolol Tartrate 50 Mg Tablet) 50 mg PO BID [facility] Last Admin: 12/29/19 22:59 Dose: 50 mg Documented by: Metoprolol Tartrate (Metoprolol Tartrate 5 Mg/5 Ml Vial) 5 mg IV Q6H PRN PRN PRN Reason: HR > 120 Last Admin: 12/29/19 17:56 Dose: 5 mg Documented by: Ondansetron HCl (Ondansetron 4 Mg/2 Ml Vial) 4 mg IV Q8H PRN PRN PRN Reason: NAUSEA/VOMITING Oxycodone HCl (Oxycodone 5 Mg Tablet) 5 mg PO Q4H PRN PRN PRN Reason: Pain Score 6-10 Last Admin: 12/24/19 22:38 Dose: 5 mg Documented by: Pantoprazole Sodium (Pantoprazole Sodium 20 Mg Tablet) 20 mg PO BID [facility] Last Admin: 12/29/19 22:59 Dose: 20 mg Documented by: Phenol/Menthol (Phenol/Sodium Phenolate 180ml) 3 spray MM Q2H PRN PRN PRN Reason: SORE THROAT Last Admin: 12/26/19 21:01 Dose: 3 spray Documented by: Pravastatin Sodium (Pravastatin 40 Mg Tablet) 40 mg PO QHS [facility] Last Admin: 12/29/19 22:59 Dose: 40 mg Documented by: Sertraline HCl (Sertraline 50 Mg Tablet) 25 mg PO QHS [facility] Last Admin: 12/29/19 22:59 Dose: 25 mg Documented by: Sodium Chloride (0.9% Saline Lock 10 Ml Syringe) 10 - 40 ml IV UD PRN PRN Reason: SALINE FLUSH Last Admin: 12/29/19 17:56 Dose: 10 ml Documented by: Tamsulosin HCl (Tamsulosin Hcl 0.4 Mg Capsule) 0.4 mg PO DAILY [facility] Last Admin: 12/29/19 08:16 Dose: 0.4 mg Documented by: STROKE Vital Signs/Narrative: Vital Signs Temp Pulse Resp BP Pulse Ox 12/30/19 07:17 87 91 12/30/19 07:16 67 20 H 12/30/19 04:46 97.7 F L 72 18 104/79 95 12/30/19 04:38 63 16 95 12/30/19 04:05 66 Medical Necessity - Tobacco Use Smoking Status: Former smoker Tobacco Use: Non-smoker Assessment/Plan All Active Problems (Last Reviewed 12/23/19 @ 16:[address] 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 blood cultures negative urine for strep and Legionella were also negative # CKD 3 Cr is 1.20 today, and stable #Hypokalemia: resolved. K is 3.8 today. #Hypertension: on amlodipine 5mg bid, losartan and metoprolol #Afib: did have a few episodes of tachycardia overnight. HR now better controlled. On metoprolol 50mg bid and IV metoprolol prn DVT prophylaxis: lovenox Inpatient E&M: [id number] [facility] L3
[2019-12-30] MEDS: Enoxaparin 100 MG/ML Syringe 90 MG SC ×2 (08:20→20:09)
[2019-12-30] MEDS: Pantoprazole Sodium 20 MG Tablet PO ×2 (08:21→20:10)
[2019-12-30] MEDS: dexAMETHasone 4 MG Tablet 6 MG PO (08:21)
[2019-12-30] MEDS: amLODIPine 5 MG Tablet PO ×2 (08:21→20:09)
[2019-12-30] MEDS: Aspirin E.C. 81 MG Tablet PO (08:21)
[2019-12-30] MEDS: 0.9% Saline Lock 10 ML Syringe IV ×2 (08:21→17:18)
[2019-12-30] MEDS: Losartan Potassium 50 MG Tablet PO ×2 (08:21→20:09)
[2019-12-30] MEDS: Tamsulosin HCl 0.4 MG Capsule PO (08:21)
[2019-12-30] MEDS: Furosemide 40 MG Tablet PO (08:21)
[2019-12-30] MEDS: Metoprolol Tartrate 50 MG Tablet PO ×2 (08:21→20:09)
--- NOTE | 2019-12-30 09:18 | PCM.PN.PUL ---
Patient Problems: Active and Suspected Problems (Last Reviewed 12/23/19 @ 16:[address] Ilan Paulino, DO) Acute respiratory failure with hypoxia (Acute) Bilateral pneumonia (Acute) Sepsis (Acute) Elevated serum creatinine (Acute) COVID-19 (Acute) Subjective: The patient was seen and examined at the bedside this morning. Events from the last 24 hours have been reviewed. The patient is currently afebrile, hemodynamically stable and maintaining appropriate oxygen saturations on 6 L/min via nasal cannula. The patient denies the presence of significant shortness of breath this morning. The patient's oxygenation status continues to improve daily. He has already received convalescent plasma and completed his treatment course of remdesivir. He remains on scheduled Decadron therapy. Objective: The patient's most recent lab work, culture data and imaging studies have all been personally reviewed. Surface echocardiogram from September 2019 revealed an ejection fraction of 55% and stage I diastolic dysfunction. Pulmonary artery systolic pressure was estimated to be 57 mmHg. Coronavirus PCR was positive on December 22. Strep and urine Legionella antigens were negative. - Physical Exam Vitals/I&O's: Vital Signs Temp Pulse Resp BP Pulse Ox 97.6 F L 93 20 H 124/63 H 94 12/30/19 08:31 12/30/19 08:31 12/30/19 08:31 12/30/19 08:31 12/30/19 08:31 Oxygen Flow Rate (L/min) 6 Oxygen Delivery Method Nasal Cannula Weight: 202 lb 6.15 oz Body Mass Index (BMI) 29.9 Intake and Output for Last 24 Hours 12/28/19 12/29/19 12/30/19 23:59 23:59 23:59 Intake Total 1200 / 1200 1260 / 1260 450 / 450 Output Total 1400 / 1400 625 / 625 700 / 700 Balance -200 / -200 635 / 635 -250 / -250 General: Alert, Oriented x3, Cooperative, No apparent distress HEENT: Atraumatic, PERRLA, Normocephalic Oral: Moist Mucosa, No Gingival or Mucosal Lesions/ Ulcerations Neck: Supple, No Nodes, Trachea Midline Lungs: No rhonchi, No wheeze, No rales, Diminished Cardiovascular: Regular rate, Regular Rhythm, Normal S1, Normal S2, No murmurs Abdomen: Bowel Sounds Present, Soft, Non Tender Extremities: No clubbing, No cyanosis, No edema Skin: No breakdown Musculoskeletal: No Tenderness to Palpation of Joints or Extremities, No Muscle Wasting Lymphatic: No Cervical, Supraclavicular, or Inguinal Adenopathy Neurological: Cranial nerves II-XII grossly intact, Neuro grossly intact Psych/Mental Status: Normal Affect Labs (Last 48 Hours) 12/28/19 12/28/19 12/28/19 09:14 12:36 16:21 WBC RBC Hgb Hct MCV MCH MCHC RDW Std Deviation RDW Coeff of Jamar Plt Count MPV Immature Gran % (Auto) Neut % (Auto) Lymph % (Auto) Mcnairy % (Auto) Eos % (Auto) Baso % (Auto) Absolute Neuts (auto) Absolute Lymphs (auto) Nucleated RBC % Sodium Potassium Chloride Carbon Dioxide Anion Gap BUN Creatinine Estim Creat Clear Calc Est GFR (MDRD) Af Amer Est GFR (MDRD) Non-Af BUN/Creatinine Ratio Glucose Calcium POC Glucose 99 128 H 208 H 12/28/19 12/29/19 12/29/19 21:29 08:13 08:22 WBC RBC Hgb Hct MCV MCH MCHC RDW Std Deviation RDW Coeff of Jamar Plt Count MPV Immature Gran % (Auto) Neut % (Auto) Lymph % (Auto) Mcnairy % (Auto) Eos % (Auto) Baso % (Auto) Absolute Neuts (auto) Absolute Lymphs (auto) Nucleated RBC % Sodium 141 Potassium 3.4 L Chloride 105 Carbon Dioxide 30.0 Anion Gap 6 BUN 38 H Creatinine 1.00 Estim Creat Clear Calc 62.86 Est GFR (MDRD) Af Amer 93 Est GFR (MDRD) Non-Af 77 BUN/Creatinine Ratio 38.1 H Glucose 90 Calcium 9.3 POC Glucose 168 H 84 12/29/19 12/29/19 12/29/19 11:45 16:14 22:42 WBC RBC Hgb Hct MCV MCH MCHC RDW Std Deviation RDW Coeff of Jamar Plt Count MPV Immature Gran % (Auto) Neut % (Auto) Lymph % (Auto) Mcnairy % (Auto) Eos % (Auto) Baso % (Auto) Absolute Neuts (auto) Absolute Lymphs (auto) Nucleated RBC % Sodium Potassium Chloride Carbon Dioxide Anion Gap BUN Creatinine Estim Creat Clear Calc Est GFR (MDRD) Af Amer Est GFR (MDRD) Non-Af BUN/Creatinine Ratio Glucose Calcium POC Glucose 161 H 162 H 177 H 12/30/19 12/30/19 05:20 05:20 WBC 5.1 RBC 4.25 L Hgb 12.9 L Hct 39.7 L MCV 93.4 MCH 30.4 MCHC 32.5 RDW Std Deviation 43.9 RDW Coeff of Jamar 12.8 Plt Count 149 L MPV 9.6 Immature Gran % (Auto) 0.800 Neut % (Auto) 75.5 H Lymph % (Auto) 13.4 L Mcnairy % (Auto) 9.7 Eos % (Auto) 0.4 Baso % (Auto) 0.2 Absolute Neuts (auto) 3.8 Absolute Lymphs (auto) 0.68 L Nucleated RBC % 0 Sodium 142 Potassium 3.8 Chloride 107 Carbon Dioxide 30.0 Anion Gap 5 BUN 42 H Creatinine 1.00 Estim Creat Clear Calc 62.86 Est GFR (MDRD) Af Amer 93 Est GFR (MDRD) Non-Af 77 BUN/Creatinine Ratio 42.0 H Glucose 103 Calcium 9.0 POC Glucose Microbiology 12/27/19 23:40 Sputum, Expectorated/Coughed Gram Stain - Final 12/27/19 23:40 Sputum, Expectorated/Coughed Respiratory Culture - Preliminary Possible Fungus 12/23/19 11:05 Blood Culture (Wb) - Anticubital Left Blood Culture - Final No growth in 5 days. 12/23/19 11:05 Blood Culture (Wb) - Anticubital Left Blood Culture - Final No growth in 5 days. Clinical Impression(s) from Imaging Studies Chest X-Ray 12/23/19 12:20 IMPRESSION: New wedge-shaped peripheral consolidation in the right midlung with mild increased markings at the lung bases and blunting of both costophrenic angles. Pneumonitis associated with Covid 19 should be ruled out. Electronically Signed: Jake Bazzi, at 12:43 EDT , Service support , Chest CTA 12/25/19 13:34 IMPRESSION: 1. No pulmonary embolism 2. Severe emphysema, viral infection. 3. Mild pulmonary arterial hypertension, right heart enlargement. Electronically Signed: Zach Kaplan, at 17:34 EST Tel , Service support , Current Medications Acetaminophen (Acetaminophen 325 Mg Tablet) 650 mg PO Q6H PRN PRN PRN Reason: Pain Score 1-10/Temp > 100.7 F Last Admin: 12/29/19 22:59 Dose: 650 mg Documented by: Albuterol/Ipratropium (Ipratropium/Albuterol Sulfate 3 Ml Ampul.Neb) 3 ml INHALATION Q6HWA.RT [facility] Last Admin: 12/30/19 07:14 Dose: 3 ml Documented by: Amlodipine Besylate (Amlodipine 5 Mg Tablet) 5 mg PO BID [facility] Last Admin: 12/30/19 08:21 Dose: 5 mg Documented by: Aspirin (Aspirin E.C. 81 Mg Tablet) 81 mg PO DAILY [facility] Last Admin: 12/30/19 08:21 Dose: 81 mg Documented by: Dexamethasone (Dexamethasone 4 Mg Tablet) 6 mg PO DAILY@0800 [facility] Stop: 01/01/20 08:01 Last Admin: 12/30/19 08:21 Dose: 6 mg Documented by: Enoxaparin Sodium (Enoxaparin 100 Mg/Ml Syringe) 90 mg 1 mg/kg (90 mg) SC Q12 [facility] Last Admin: 12/30/19 08:20 Dose: 90 mg Documented by: Furosemide (Furosemide 40 Mg Tablet) 40 mg PO DAILY [facility] Last Admin: 12/30/19 08:21 Dose: 40 mg Documented by: Sodium Chloride () 250 mls @ 15 mls/hr IV .[id number] PRN PRN Reason: Saline Flush Last Infusion: 12/29/19 08:27 Dose: Infused Documented by: Sodium Chloride () 250 mls @ 15 mls/hr IV .[id number] PRN PRN Reason: Additional IVPB Infusion Insulin Human Lispro (Insulin Lispro 100 Unit/Ml Insuln.Pen) 0 unit SC TIDCM [facility]; Protocol Last Admin: 12/30/19 08:19 Dose: Not Given Documented by: Isosorbide Mononitrate (Isosorbide Mononitrate 60 Mg Tablet) 60 mg PO QHS [facility] Last Admin: 12/29/19 22:58 Dose: 60 mg Documented by: Losartan Potassium (Losartan Potassium 50 Mg Tablet) 50 mg PO BID [facility] Last Admin: 12/30/19 08:21 Dose: 50 mg Documented by: Metoprolol Tartrate (Metoprolol Tartrate 50 Mg Tablet) 50 mg PO BID [facility] Last Admin: 12/30/19 08:21 Dose: 50 mg Documented by: Metoprolol Tartrate (Metoprolol Tartrate 5 Mg/5 Ml Vial) 5 mg IV Q6H PRN PRN PRN Reason: HR > 120 Last Admin: 12/29/19 17:56 Dose: 5 mg Documented by: Ondansetron HCl (Ondansetron 4 Mg/2 Ml Vial) 4 mg IV Q8H PRN PRN PRN Reason: NAUSEA/VOMITING Oxycodone HCl (Oxycodone 5 Mg Tablet) 5 mg PO Q4H PRN PRN PRN Reason: Pain Score 6-10 Last Admin: 12/24/19 22:38 Dose: 5 mg Documented by: Pantoprazole Sodium (Pantoprazole Sodium 20 Mg Tablet) 20 mg PO BID [facility] Last Admin: 12/30/19 08:21 Dose: 20 mg Documented by: Phenol/Menthol (Phenol/Sodium Phenolate 180ml) 3 spray MM Q2H PRN PRN PRN Reason: SORE THROAT Last Admin: 12/26/19 21:01 Dose: 3 spray Documented by: Pravastatin Sodium (Pravastatin 40 Mg Tablet) 40 mg PO QHS [facility] Last Admin: 12/29/19 22:59 Dose: 40 mg Documented by: Sertraline HCl (Sertraline 50 Mg Tablet) 25 mg PO QHS [facility] Last Admin: 12/29/19 22:59 Dose: 25 mg Documented by: Sodium Chloride (0.9% Saline Lock 10 Ml Syringe) 10 - 40 ml IV UD PRN PRN Reason: SALINE FLUSH Last Admin: 12/30/19 08:21 Dose: 10 ml Documented by: Tamsulosin HCl (Tamsulosin Hcl 0.4 Mg Capsule) 0.4 mg PO DAILY [facility] Last Admin: 12/30/19 08:21 Dose: 0.4 mg Documented by: Medical Necessity - Tobacco Use Smoking Status: Former smoker Tobacco Use: Non-smoker Assessment/Plan All Active Problems (Last Reviewed 12/23/19 @ 16:[address] 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 Continue to wean supplemental oxygen to maintain saturations at or above 90%. 2. Continue Decadron and Lovenox. Remdesivir has completed. 3. Continue diuresis as tolerated by hemodynamics and renal function. 4. Encourage incentive spirometer use and mobilize patient as tolerated. IMPRESSIONS: 1. Acute hypoxemic respiratory failure Most likely multifactorial in etiology with COVID-19 pneumonia contributing along with an element of pulmonary hypertension secondary to noncompliance with supplemental oxygen previously. The patient also reportedly has a history of COPD of unknown severity. He has already received convalescent plasma and completed a treatment course of remdesivir. The patient will be continued on Decadron to complete a total of 10 days of therapy along with Lovenox. Bronchodilator therapy will also be continued. Plan to continue gentle diuresis as tolerated by hemodynamics and renal function. Continue to wean supplemental oxygen to maintain saturations at or above 90%. 2. Acute kidney injury Improved. Patient appears to be improving with stabilization of hemodynamics and holding of baseline antihypertensives. Cannot exclude an element of ATN secondary to hypoxia. Continue to monitor urine output. No indication for renal replacement therapy. 3. Advanced age/obesity/history of lung resection/depression/GERD/hypertension Complicates care, management, recovery and prognosis. Okay to continue medications for depression and GERD. This note was generated with [employer] dictation software. It may contain incorrect words, spelling, and punctuation that were not noted in checking the note before signing. Inpatient E&M: 52649 Subs Hosp L2
[2019-12-30 10:21] LABS: Bedside Glucose 75 mg/dL (70-110)
[2019-12-30 12:11] LABS: Bedside Glucose 124 mg/dL (70-110)
[2019-12-30 15:36] LABS: Magnesium 2.4 mg/dL (1.6-2.6)
--- NOTE | 2019-12-30 16:10 | PCM.PN.ID ---
Patient Problems: Active and Suspected Problems (Last Reviewed 12/23/19 @ 16:[address] Ilan Paulino, DO) Acute respiratory failure with hypoxia (Acute) Bilateral pneumonia (Acute) Sepsis (Acute) Elevated serum creatinine (Acute) COVID-19 (Acute) Subjective: Feeling better, O2 much improved, no n/v/d. - Physical Exam Vitals/I&O's: Vital Signs Temp Pulse Resp BP Pulse Ox 98.1 F 119 H 20 H 123/74 H 94 12/30/19 15:34 12/30/19 15:36 12/30/19 15:34 12/30/19 15:36 12/30/19 15:34 Oxygen Flow Rate (L/min) 7 Oxygen Delivery Method Nasal Cannula Weight: 91.8 kg Body Mass Index (BMI) 29.9 Orthostatic Vital Signs Start: 12/30/19 15:36 Freq: q24h Status: Active Protocol: Activity Type Activity Date Activity User E-Sign Co-Sign Detail Recorded Client Recorded Date Recorded By Document 12/30/19 15:36 [id number] 12/30/19 15:44 EY 12/30/19 15:36 Orthostatic Vitals Standing -Blood Pressure (90/60-120/80) 118/77 -Extremity Use Left Arm -Pulse Rate (60-100) 133 H Sitting -Blood Pressure (90/60-120/80) 132/69 H -Extremity Use Left Arm -Pulse Rate (60-100) 124 H Lying -Blood Pressure (90/60-120/80) 123/74 H -Extremity Use Left Arm -Pulse Rate (60-100) 119 H Intake and Output for Last 24 Hours 12/28/19 12/29/19 12/30/19 23:59 23:59 23:59 Intake Total 1200 / 1200 1260 / 1260 930 / 930 Output Total 1400 / 1400 625 / 625 850 / 850 Balance -200 / -200 635 / 635 80 / 80 General: Alert, Cooperative, No apparent distress Lungs: Clear to auscultation, Diminished Cardiovascular: Regular rate, Regular Rhythm Abdomen: Soft, Non Tender, Non-Distended Skin: No rashes Microbiology Past 72 Hours 12/27/19 23:40 Sputum, Expectorated/Coughed Gram Stain - Final 12/27/19 23:40 Sputum, Expectorated/Coughed Respiratory Culture - Preliminary Possible Fungus 12/23/19 11:05 Blood Culture (Wb) - Anticubital Left Blood Culture - Final No growth in 5 days. 12/23/19 11:05 Blood Culture (Wb) - Anticubital Left Blood Culture - Final No growth in 5 days. Laboratory Results 12/29/19 16:14: POC Glucose 162 H 12/29/19 22:42: POC Glucose 177 H 12/30/19 05:20: WBC 5.1, RBC 4.25 L, Hgb 12.9 L, Hct 39.7 L, MCV 93.4, MCH 30.4, MCHC 32.5, RDW Std Deviation 43.9, RDW Coeff of Jamar 12.8, Plt Count 149 L, MPV 9.6, Immature Gran % (Auto) 0.800, Neut % (Auto) 75.5 H, Lymph % (Auto) 13.4 L, Hardy % (Auto) 9.7, Eos % (Auto) 0.4, Baso % (Auto) 0.2, Absolute Neuts (auto) 3.8, Absolute Lymphs (auto) 0.68 L, Nucleated RBC % 0 12/30/19 05:20: Sodium 142, Potassium 3.8, Chloride 107, Carbon Dioxide 30.0, Anion Gap 5, BUN 42 H, Creatinine 1.00, Estim Creat Clear Calc 62.86, Est GFR (MDRD) Af Amer 93, Est GFR (MDRD) Non-Af 77, BUN/Creatinine Ratio 42.0 H, Glucose 103, Calcium 9.0 12/30/19 05:20: Magnesium 2.4 12/30/19 08:17: POC Glucose 75 12/30/19 11:54: POC Glucose 124 H Current Medications Acetaminophen (Acetaminophen 325 Mg Tablet) 650 mg PO Q6H PRN PRN PRN Reason: Pain Score 1-10/Temp > 100.7 F Last Admin: 12/29/19 22:59 Dose: 650 mg Documented by: Albuterol/Ipratropium (Ipratropium/Albuterol Sulfate 3 Ml Ampul.Neb) 3 ml INHALATION Q6HWA.RT [facility] Last Admin: 12/30/19 13:30 Dose: 3 ml Documented by: Amlodipine Besylate (Amlodipine 5 Mg Tablet) 5 mg PO BID [facility] Last Admin: 12/30/19 08:21 Dose: 5 mg Documented by: Aspirin (Aspirin E.C. 81 Mg Tablet) 81 mg PO DAILY [facility] Last Admin: 12/30/19 08:21 Dose: 81 mg Documented by: Dexamethasone (Dexamethasone 4 Mg Tablet) 6 mg PO DAILY@0800 [facility] Stop: 01/01/20 08:01 Last Admin: 12/30/19 08:21 Dose: 6 mg Documented by: Enoxaparin Sodium (Enoxaparin 100 Mg/Ml Syringe) 90 mg 1 mg/kg (90 mg) SC Q12 [facility] Last Admin: 12/30/19 08:20 Dose: 90 mg Documented by: Furosemide (Furosemide 40 Mg Tablet) 40 mg PO DAILY [facility] Last Admin: 12/30/19 08:21 Dose: 40 mg Documented by: Sodium Chloride () 250 mls @ 15 mls/hr IV .[id number] PRN PRN Reason: Saline Flush Last Infusion: 12/29/19 08:27 Dose: Infused Documented by: Sodium Chloride () 250 mls @ 15 mls/hr IV .[id number] PRN PRN Reason: Additional IVPB Infusion Insulin Human Lispro (Insulin Lispro 100 Unit/Ml Insuln.Pen) 0 unit SC TIDCM [facility]; Protocol Last Admin: 12/30/19 11:55 Dose: Not Given Documented by: Isosorbide Mononitrate (Isosorbide Mononitrate 60 Mg Tablet) 60 mg PO QHS [facility] Last Admin: 12/29/19 22:58 Dose: 60 mg Documented by: Losartan Potassium (Losartan Potassium 50 Mg Tablet) 50 mg PO BID [facility] Last Admin: 12/30/19 08:21 Dose: 50 mg Documented by: Metoprolol Tartrate (Metoprolol Tartrate 50 Mg Tablet) 50 mg PO BID [facility] Last Admin: 12/30/19 08:21 Dose: 50 mg Documented by: Metoprolol Tartrate (Metoprolol Tartrate 5 Mg/5 Ml Vial) 5 mg IV Q6H PRN PRN PRN Reason: HR > 120 Last Admin: 12/29/19 17:56 Dose: 5 mg Documented by: Ondansetron HCl (Ondansetron 4 Mg/2 Ml Vial) 4 mg IV Q8H PRN PRN PRN Reason: NAUSEA/VOMITING Oxycodone HCl (Oxycodone 5 Mg Tablet) 5 mg PO Q4H PRN PRN PRN Reason: Pain Score 6-10 Last Admin: 12/24/19 22:38 Dose: 5 mg Documented by: Pantoprazole Sodium (Pantoprazole Sodium 20 Mg Tablet) 20 mg PO BID [facility] Last Admin: 12/30/19 08:21 Dose: 20 mg Documented by: Phenol/Menthol (Phenol/Sodium Phenolate 180ml) 3 spray MM Q2H PRN PRN PRN Reason: SORE THROAT Last Admin: 12/26/19 21:01 Dose: 3 spray Documented by: Pravastatin Sodium (Pravastatin 40 Mg Tablet) 40 mg PO QHS [facility] Last Admin: 12/29/19 22:59 Dose: 40 mg Documented by: Sertraline HCl (Sertraline 50 Mg Tablet) 25 mg PO QHS [facility] Last Admin: 12/29/19 22:59 Dose: 25 mg Documented by: Sodium Chloride (0.9% Saline Lock 10 Ml Syringe) 10 - 40 ml IV UD PRN PRN Reason: SALINE FLUSH Last Admin: 12/30/19 08:21 Dose: 10 ml Documented by: Tamsulosin HCl (Tamsulosin Hcl 0.4 Mg Capsule) 0.4 mg PO DAILY [facility] Last Admin: 12/30/19 08:21 Dose: 0.4 mg Documented by: Medical Necessity - Tobacco Use Smoking Status: Former smoker Tobacco Use: Non-smoker Route of nutrition/ use of supplements: [] Nutritional Intake: [] IV Site: [] May Catheter: [] - Assessment/Plan Antibiotics: [] Assessment/Plan: [] Active and Suspected Problems (Last Reviewed 12/23/19 @ 16:[address] Ilan Paulino, ) Acute respiratory failure with hypoxia (Acute) Bilateral pneumonia (Acute) Sepsis (Acute) Elevated serum creatinine (Acute) COVID-19 (Acute) Covid with hypoxia - On dex, completed remdesivir, and given plasma. CT showed no PE. Feeling better. O2 much improved, now down to 5L. Ok for home if O2 continues to improve to complete 10 days total of dex, started 12/22. Will follow
[2019-12-30] MEDS: Insulin Lispro 100 UNIT/ML INSULN.PEN SC (16:26)
[2019-12-30] MEDS: Acetaminophen 325 MG Tablet 650 MG PO (16:27)
[2019-12-30 17:10] LABS: Bedside Glucose 243 mg/dL (70-110)
[2019-12-30] MEDS: Metoprolol Tartrate 5 MG/5 ML Vial IV (17:18)
[2019-12-30] MEDS: Isosorbide Mononitrate 60 MG Tablet PO (20:09)
[2019-12-30] MEDS: Sertraline 50 MG Tablet 25 MG PO (20:10)
[2019-12-30] MEDS: Pravastatin 40 MG Tablet PO (20:10)
[2019-12-30 22:46] LABS: Bedside Glucose 240 mg/dL (70-110)
[2019-12-31] VITALS (18 sets, daily range): BP systolic 113–128; BP diastolic 60–97; PULSE 48–108; RESP 12–20; TEMP 35.7–36.3; O2SAT 91–97
[2019-12-31] MEDS: Acetaminophen 325 MG Tablet 650 MG PO ×2 (06:20→20:41)
[2019-12-31] MEDS: Ipratropium/Albuterol Sulfate 3 ML AMPUL.NEB INHALATION ×3 (07:05→19:35)
--- NOTE | 2019-12-31 07:54 | PN_ITS ---
Patient Problems: Active and Suspected Problems (Last Reviewed 12/23/19 @ 16:[address] Ilan Paulino, DO) Acute respiratory failure with hypoxia (Acute) Bilateral pneumonia (Acute) Sepsis (Acute) Elevated serum creatinine (Acute) COVID-19 (Acute) Subjective: Patient seen and examined. He has no complaints. He is on 6 L of oxygen now. Review of systems otherwise negative. He has remained hemodynamically stable. Vitals/I&O's: Vital Signs Temp Pulse Resp BP Pulse Ox 96.7 F L 72 17 113/64 95 12/31/19 02:19 12/31/19 07:30 12/31/19 07:06 12/31/19 02:19 12/31/19 07:06 Oxygen Flow Rate (L/min) 6 Oxygen Delivery Method Nasal Cannula Weight: 201 lb 0.985 oz Body Mass Index (BMI) 29.9 Orthostatic Vital Signs Start: 12/30/19 15:36 Freq: q24h Status: Active Protocol: Activity Type Activity Date Activity User E-Sign Co-Sign Detail Recorded Client Recorded Date Recorded By Document 12/30/19 15:36 EY [id number] 12/30/19 15:44 EY 12/30/19 15:36 Orthostatic Vitals Standing -Blood Pressure (90/60-120/80) 118/77 -Extremity Use Left Arm -Pulse Rate (60-100) 133 H Sitting -Blood Pressure (90/60-120/80) 132/69 H -Extremity Use Left Arm -Pulse Rate (60-100) 124 H Lying -Blood Pressure (90/60-120/80) 123/74 H -Extremity Use Left Arm -Pulse Rate (60-100) 119 H Intake and Output for Last 24 Hours 12/29/19 12/30/19 12/31/19 23:59 23:59 23:59 Intake Total 1260 / 1260 1390 / 1390 350 / 350 Output Total 625 / 625 1375 / 1375 400 / 400 Balance 635 / 635 -50 / -50 General: Alert, Oriented x3, Cooperative, No apparent distress HEENT: Atraumatic, PERRLA, EOMI, Normocephalic Oral: Moist Mucosa Neck: Supple, No JVD, Negative Carotid Bruits Lungs: - - diminished breath sounds bibasally, no wheezes or crackles. on 6L of oxygen Cardiovascular: Regular rate, Regular Rhythm, Normal S1, Normal S2, No murmurs Abdomen: Bowel Sounds Present, Soft, Non Tender Extremities: No clubbing, No cyanosis, No edema, Capillary Refill Less than 3 Seconds Skin: No rashes, No breakdown Musculoskeletal: No Tenderness to Palpation of Joints or Extremities Lymphatic: No Cervical, Supraclavicular, or Inguinal Adenopathy Neurological: Cranial nerves II-XII grossly intact, Neuro grossly intact, Motor Exam 5/5 strength throughout Psych/Mental Status: Normal Affect, Appropriate, Alert and oriented to time, place, person, mood and affect Microbiology Past 72 Hours 12/27/19 23:40 Sputum, Expectorated/Coughed Gram Stain - Final 12/27/19 23:40 Sputum, Expectorated/Coughed Respiratory Culture - Preliminary Possible Fungus 12/23/19 11:05 Blood Culture (Wb) - Anticubital Left Blood Culture - Final No growth in 5 days. 12/23/19 11:05 Blood Culture (Wb) - Anticubital Left Blood Culture - Final No growth in 5 days. Laboratory Results 12/30/19 05:20: Magnesium 2.4 12/30/19 08:17: POC Glucose 75 12/30/19 11:54: POC Glucose 124 H 12/30/19 16:25: POC Glucose 243 H 12/30/19 22:37: POC Glucose 240 H Current Medications Acetaminophen (Acetaminophen 325 Mg Tablet) 650 mg PO Q6H PRN PRN PRN Reason: Pain Score 1-10/Temp > 100.7 F Last Admin: 12/31/19 06:20 Dose: 650 mg Documented by: Albuterol/Ipratropium (Ipratropium/Albuterol Sulfate 3 Ml Ampul.Neb) 3 ml INHALATION Q6HWA.RT [facility] Last Admin: 12/31/19 07:05 Dose: 3 ml Documented by: Amlodipine Besylate (Amlodipine 5 Mg Tablet) 5 mg PO BID [facility] Last Admin: 12/30/19 20:09 Dose: 5 mg Documented by: Aspirin (Aspirin E.C. 81 Mg Tablet) 81 mg PO DAILY [facility] Last Admin: 12/30/19 08:21 Dose: 81 mg Documented by: Dexamethasone (Dexamethasone 4 Mg Tablet) 6 mg PO DAILY@0800 [facility] Stop: 01/01/20 08:01 Last Admin: 12/30/19 08:21 Dose: 6 mg Documented by: Enoxaparin Sodium (Enoxaparin 100 Mg/Ml Syringe) 90 mg 1 mg/kg (90 mg) SC Q12 [facility] Last Admin: 12/30/19 20:09 Dose: 90 mg Documented by: Furosemide (Furosemide 40 Mg Tablet) 40 mg PO DAILY [facility] Last Admin: 12/30/19 08:21 Dose: 40 mg Documented by: Sodium Chloride () 250 mls @ 15 mls/hr IV .[id number] PRN PRN Reason: Saline Flush Last Infusion: 12/29/19 08:27 Dose: Infused Documented by: Sodium Chloride () 250 mls @ 15 mls/hr IV .[id number] PRN PRN Reason: Additional IVPB Infusion Insulin Human Lispro (Insulin Lispro 100 Unit/Ml Insuln.Pen) 0 unit SC TIDCM [facility]; Protocol Last Admin: 12/30/19 16:26 Dose: 4 units Documented by: Isosorbide Mononitrate (Isosorbide Mononitrate 60 Mg Tablet) 60 mg PO QHS [facility] Last Admin: 12/30/19 20:09 Dose: 60 mg Documented by: Losartan Potassium (Losartan Potassium 50 Mg Tablet) 50 mg PO BID [facility] Last Admin: 12/30/19 20:09 Dose: 50 mg Documented by: Metoprolol Tartrate (Metoprolol Tartrate 50 Mg Tablet) 50 mg PO BID [facility] Last Admin: 12/30/19 20:09 Dose: 50 mg Documented by: Metoprolol Tartrate (Metoprolol Tartrate 5 Mg/5 Ml Vial) 5 mg IV Q6H PRN PRN PRN Reason: HR > 120 Last Admin: 12/30/19 17:18 Dose: 5 mg Documented by: Ondansetron HCl (Ondansetron 4 Mg/2 Ml Vial) 4 mg IV Q8H PRN PRN PRN Reason: NAUSEA/VOMITING Oxycodone HCl (Oxycodone 5 Mg Tablet) 5 mg PO Q4H PRN PRN PRN Reason: Pain Score 6-10 Last Admin: 12/24/19 22:38 Dose: 5 mg Documented by: Pantoprazole Sodium (Pantoprazole Sodium 20 Mg Tablet) 20 mg PO BID [facility] Last Admin: 12/30/19 20:10 Dose: 20 mg Documented by: Phenol/Menthol (Phenol/Sodium Phenolate 180ml) 3 spray MM Q2H PRN PRN PRN Reason: SORE THROAT Last Admin: 12/26/19 21:01 Dose: 3 spray Documented by: Pravastatin Sodium (Pravastatin 40 Mg Tablet) 40 mg PO QHS [facility] Last Admin: 12/30/19 20:10 Dose: 40 mg Documented by: Sertraline HCl (Sertraline 50 Mg Tablet) 25 mg PO QHS [facility] Last Admin: 12/30/19 20:10 Dose: 25 mg Documented by: Sodium Chloride (0.9% Saline Lock 10 Ml Syringe) 10 - 40 ml IV UD PRN PRN Reason: SALINE FLUSH Last Admin: 12/30/19 17:18 Dose: 10 ml Documented by: Tamsulosin HCl (Tamsulosin Hcl 0.4 Mg Capsule) 0.4 mg PO DAILY [facility] Last Admin: 12/30/19 08:21 Dose: 0.4 mg Documented by: STROKE Vital Signs/Narrative: Vital Signs Pulse Resp Pulse Ox 12/31/19 07:30 72 12/31/19 07:06 80 17 95 12/31/19 05:31 66 16 97 12/31/19 03:59 72 Medical Necessity - Tobacco Use Smoking Status: Former smoker Tobacco Use: Non-smoker Assessment/Plan All Active Problems (Last Reviewed 12/23/19 @ 16:[address] 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 * blood cultures negative * urine for strep and Legionella were also negative. Sputum culture grew a possible fungus * # CKD 3 * Cr is 1.20 today, and stable * #Hypokalemia: resolved. #Hypertension: on amlodipine 5mg bid, losartan and metoprolol #Afib: Heart rate fairly controlled though he does have episodic moments of tachycardia. Continue metoprolol. DVT prophylaxis: lovenox Inpatient E&M: 17886 Subs Hosp L2
[2019-12-31 08:50] LABS: Absolute Lymphocyte Count 0.86 X10^3/uL (0.83-4.51); Absolute Neutrophil Count 4.3 X10^3/uL (2.0-7.7); Basophil# 0.01 X10^3/uL; Basophil% 0.2 % (0-1); Eosinophil# 0.04 X10^3/uL; Eosinophils% 0.7 % (0-5); Hematocrit 42.9 % (40-54); Hemoglobin 13.7 g/dL (13.0-16.5); Lymphocyte # 0.86 X10^3/ul (4.0); Lymphocyte % 14.4 % (19-41); Mean Corp Hgb Conc 31.9 g/dL (32-36); Mean Corpuscular Hgb 30.9 pg (27.0-32.0); Mean Corpuscular Volume 96.6 fL (80-94); Mean Platelet Vol. 10.2 fl (6.2-12.0); Monocyte# 0.67 X10^3/uL; Monocyte% 11.2 % (0-10); NRBC Flagged by Analyzer 0 % (0-5); Neutrophil # 4.27 X10^3/uL (2.7-7.7); Neutrophil % 71.5 % (47-70); Platelet Count 159 K/mm3 (150-450); RBC Distribution Width CV 12.9 % (11.6-14.6); RBC Distribution Width SD 46.1 fl (35.1-43.9); Red Blood Count 4.44 M/mm3 (4.6-6.2)
[2019-12-31] MEDS: Enoxaparin 100 MG/ML Syringe 90 MG SC ×2 (08:56→20:40)
[2019-12-31] MEDS: dexAMETHasone 4 MG Tablet 6 MG PO (08:57)
[2019-12-31] MEDS: Furosemide 40 MG Tablet PO (08:58)
[2019-12-31] MEDS: Pantoprazole Sodium 20 MG Tablet PO ×2 (08:58→20:40)
[2019-12-31] MEDS: Metoprolol Tartrate 50 MG Tablet PO ×2 (08:58→20:41)
[2019-12-31] MEDS: Aspirin E.C. 81 MG Tablet PO (08:58)
[2019-12-31] MEDS: Losartan Potassium 50 MG Tablet PO ×2 (08:58→20:40)
[2019-12-31] MEDS: amLODIPine 5 MG Tablet PO ×2 (08:59→20:40)
[2019-12-31 09:13] LABS: Anion Gap 6 (5-15); BUN 47 mg/dL (7-18); BUN/Creat Ratio 43.9 RATIO (10-20); Chloride 106 mmol/L (98-107); Creatinine, Serum 1.07 mg/dL (0.70-1.30); EST Glomerular Filtration Rate 71 mL/min (>60); Est Glom Filt Rate - Afr Amer 86 mL/min (>60); Estimated Creatinine Clearance 58.75 ml/min; Glucose 83 mg/dL (74-106); Potassium 3.7 mmol/L (3.5-5.1); Sodium Level 141 mmol/L (136-145)
[2019-12-31 09:20] LABS: Bedside Glucose 87 mg/dL (70-110)
[2019-12-31 12:26] LABS: Bedside Glucose 141 mg/dL (70-110)
[2019-12-31] MEDS: Insulin Lispro 100 UNIT/ML INSULN.PEN SC (17:05)
[2019-12-31 17:11] LABS: Bedside Glucose 172 mg/dL (70-110)
[2019-12-31] MEDS: Pravastatin 40 MG Tablet PO (20:41)
[2019-12-31] MEDS: Sertraline 50 MG Tablet 25 MG PO (20:41)
[2019-12-31] MEDS: Isosorbide Mononitrate 60 MG Tablet PO (20:41)
[2019-12-31] MEDS: Tamsulosin HCl 0.4 MG Capsule PO (20:47)
[2020-01-01] VITALS (16 sets, daily range): BP systolic 102–120; BP diastolic 65–89; PULSE 66–118; RESP 16–20; TEMP 36.3–37.1; O2SAT 91–95
[2020-01-01 06:59] LABS: Absolute Lymphocyte Count 0.66 X10^3/uL (0.83-4.51); Absolute Neutrophil Count 5.2 X10^3/uL (2.0-7.7); Basophil# 0.01 X10^3/uL; Basophil% 0.1 % (0-1); Eosinophil# 0.05 X10^3/uL; Eosinophils% 0.7 % (0-5); Hematocrit 39.9 % (40-54); Lymphocyte # 0.66 X10^3/ul (4.0); Lymphocyte % 9.9 % (19-41); Mean Corp Hgb Conc 32.6 g/dL (32-36); Mean Corpuscular Hgb 30.8 pg (27.0-32.0); Mean Corpuscular Volume 94.5 fL (80-94); Mean Platelet Vol. 9.9 fl (6.2-12.0); Monocyte# 0.68 X10^3/uL; Monocyte% 10.1 % (0-10); NRBC Flagged by Analyzer 0 % (0-5); Neutrophil # 5.22 X10^3/uL (2.7-7.7); Platelet Count 170 K/mm3 (150-450); RBC Distribution Width CV 12.9 % (11.6-14.6); RBC Distribution Width SD 44.5 fl (35.1-43.9); Red Blood Count 4.22 M/mm3 (4.6-6.2); White Blood Count 6.7 K/mm3 (4.4-11.0)
--- NOTE | 2020-01-01 07:01 | PN_ITS ---
Patient Problems: Active and Suspected Problems (Last Reviewed 12/23/19 @ 16:[address] Ilan Paulino, DO) Acute respiratory failure with hypoxia (Acute) Bilateral pneumonia (Acute) Sepsis (Acute) Elevated serum creatinine (Acute) COVID-19 (Acute) Subjective: The patient was seen and examined at the bedside this morning. Events from the last 24 hours have been reviewed. The patient is currently afebrile, hemodynamically stable and maintaining appropriate oxygen saturations on 6 L/min via nasal cannula. He has already received convalescent plasma and completed his treatment course of remdesivir. He remains on scheduled Decadron therapy. Objective: The patient's most recent lab work, culture data and imaging studies have all been personally reviewed. Surface echocardiogram from September 2019 revealed an ejection fraction of 55% and stage I diastolic dysfunction. Pulmonary artery systolic pressure was estimated to be 57 mmHg. Coronavirus PCR was positive on December 22. Strep and urine Legionella antigens were negative. - Physical Exam Vitals/I&O's: Vital Signs Temp Pulse Resp BP Pulse Ox 98.6 F 68 18 118/72 93 01/01/20 02:30 01/01/20 06:00 01/01/20 02:30 01/01/20 02:30 01/01/20 02:30 Oxygen Flow Rate (L/min) 6 Oxygen Delivery Method Nasal Cannula Weight: 202 lb 3.274 oz Body Mass Index (BMI) 29.9 Orthostatic Vital Signs Start: 12/30/19 15:36 Freq: q24h Status: Active Protocol: Activity Type Activity Date Activity User E-Sign Co-Sign Detail Recorded Client Recorded Date Recorded By Document 12/30/19 15:36 [id number] 12/30/19 15:44 EY 12/30/19 15:36 Orthostatic Vitals Standing -Blood Pressure (90/60-120/80) 118/77 -Extremity Use Left Arm -Pulse Rate (60-100) 133 H Sitting -Blood Pressure (90/60-120/80) 132/69 H -Extremity Use Left Arm -Pulse Rate (60-100) 124 H Lying -Blood Pressure (90/60-120/80) 123/74 H -Extremity Use Left Arm -Pulse Rate (60-100) 119 H Intake and Output for Last 24 Hours 12/30/19 12/31/19 01/01/20 23:59 23:59 23:59 Intake Total 1390 / 1390 1010 / 1010 Output Total 1375 / 1375 1350 / 1600 500 / 500 Balance -340 / -590 -500 / -500 General: Alert, Oriented x3, Cooperative HEENT: Atraumatic, PERRLA, Normocephalic Oral: Moist Mucosa, No Gingival or Mucosal Lesions/ Ulcerations Neck: Supple, No Nodes, Trachea Midline Lungs: No rhonchi, No wheeze, No rales, Diminished Cardiovascular: Regular rate, Regular Rhythm, Normal S1, Normal S2, No murmurs Abdomen: Bowel Sounds Present, Soft, Non Tender Extremities: No clubbing, No cyanosis, No edema Skin: No breakdown Musculoskeletal: No Tenderness to Palpation of Joints or Extremities, No Muscle Wasting Lymphatic: No Cervical, Supraclavicular, or Inguinal Adenopathy Neurological: Neuro grossly intact Psych/Mental Status: Normal Affect, Appropriate Labs (Last 48 Hours) 12/29/19 12/30/19 12/30/19 22:42 05:20 08:17 WBC RBC Hgb Hct MCV MCH MCHC RDW Std Deviation RDW Coeff of Jamar Plt Count MPV Immature Gran % (Auto) Neut % (Auto) Lymph % (Auto) [place] % (Auto) Eos % (Auto) Baso % (Auto) Absolute Neuts (auto) Absolute Lymphs (auto) Nucleated RBC % Sodium Potassium Chloride Carbon Dioxide Anion Gap BUN Creatinine Estim Creat Clear Calc Est GFR (MDRD) Af Amer Est GFR (MDRD) Non-Af BUN/Creatinine Ratio Glucose Calcium Magnesium 2.4 POC Glucose 177 H 75 12/30/19 12/30/19 12/30/19 11:54 16:25 22:37 WBC RBC Hgb Hct MCV MCH MCHC RDW Std Deviation RDW Coeff of Jamar Plt Count MPV Immature Gran % (Auto) Neut % (Auto) Lymph % (Auto) [place] % (Auto) Eos % (Auto) Baso % (Auto) Absolute Neuts (auto) Absolute Lymphs (auto) Nucleated RBC % Sodium Potassium Chloride Carbon Dioxide Anion Gap BUN Creatinine Estim Creat Clear Calc Est GFR (MDRD) Af Amer Est GFR (MDRD) Non-Af BUN/Creatinine Ratio Glucose Calcium Magnesium POC Glucose 124 H 243 H 240 H 11/09/1112/31/19 12/31/19 08:00 08:00 08:55 WBC 6.0 RBC 4.44 L Hgb 13.7 Hct 42.9 MCV 96.6 H MCH 30.9 MCHC 31.9 L RDW Std Deviation 46.1 H RDW Coeff of Jamar 12.9 Plt Count 159 MPV 10.2 Immature Gran % (Auto) 2.000 H Neut % (Auto) 71.5 H Lymph % (Auto) 14.4 L [place] % (Auto) 11.2 H Eos % (Auto) 0.7 Baso % (Auto) 0.2 Absolute Neuts (auto) 4.3 Absolute Lymphs (auto) 0.86 Nucleated RBC % 0 Sodium 141 Potassium 3.7 Chloride 106 Carbon Dioxide 29.0 Anion Gap 6 BUN 47 H Creatinine 1.07 Estim Creat Clear Calc 58.75 Est GFR (MDRD) Af Amer 86 Est GFR (MDRD) Non-Af 71 BUN/Creatinine Ratio 43.9 H Glucose 83 Calcium 10.0 Magnesium POC Glucose 87 12/31/19 12/31/19 01/01/20 12:18 16:58 06:40 WBC 6.7 RBC 4.22 L Hgb 13.0 Hct 39.9 L MCV 94.5 H MCH 30.8 MCHC 32.6 RDW Std Deviation 44.5 H RDW Coeff of Jamar 12.9 Plt Count 170 MPV 9.9 Immature Gran % (Auto) 1.200 H Neut % (Auto) 78.0 H Lymph % (Auto) 9.9 L [place] % (Auto) 10.1 H Eos % (Auto) 0.7 Baso % (Auto) 0.1 Absolute Neuts (auto) 5.2 Absolute Lymphs (auto) 0.66 L Nucleated RBC % 0 Sodium Potassium Chloride Carbon Dioxide Anion Gap BUN Creatinine Estim Creat Clear Calc Est GFR (MDRD) Af Amer Est GFR (MDRD) Non-Af BUN/Creatinine Ratio Glucose Calcium Magnesium POC Glucose 141 H 172 H 01/01/20 06:40 WBC RBC Hgb Hct MCV MCH MCHC RDW Std Deviation RDW Coeff of Jamar Plt Count MPV Immature Gran % (Auto) Neut % (Auto) Lymph % (Auto) [place] % (Auto) Eos % (Auto) Baso % (Auto) Absolute Neuts (auto) Absolute Lymphs (auto) Nucleated RBC % Sodium Pending Potassium Pending Chloride Pending Carbon Dioxide Pending Anion Gap Pending BUN Pending Creatinine Pending Estim Creat Clear Calc Est GFR (MDRD) Af Amer Pending Est GFR (MDRD) Non-Af Pending BUN/Creatinine Ratio Pending Glucose Pending Calcium Pending Magnesium POC Glucose Clinical Impression(s) from Imaging Studies Chest X-Ray 12/23/19 12:20 IMPRESSION: New wedge-shaped peripheral consolidation in the right midlung with mild increased markings at the lung bases and blunting of both costophrenic angles. Pneumonitis associated with Covid 19 should be ruled out. Electronically Signed: Jake Bazzi, at 12:43 EDT , Service support , Chest CTA 12/25/19 13:34 IMPRESSION: 1. No pulmonary embolism 2. Severe emphysema, viral infection. 3. Mild pulmonary arterial hypertension, right heart enlargement. Electronically Signed: Zach Kaplan, at 17:34 EST Tel , Service support , Current Medications Acetaminophen (Acetaminophen 325 Mg Tablet) 650 mg PO Q6H PRN PRN PRN Reason: Pain Score 1-10/Temp > 100.7 F Last Admin: 12/31/19 20:41 Dose: 650 mg Documented by: Albuterol/Ipratropium (Ipratropium/Albuterol Sulfate 3 Ml Ampul.Neb) 3 ml INHALATION Q6HWA.RT [facility] Last Admin: 12/31/19 19:35 Dose: 3 ml Documented by: Amlodipine Besylate (Amlodipine 5 Mg Tablet) 5 mg PO BID [facility] Last Admin: 12/31/19 20:40 Dose: 5 mg Documented by: Aspirin (Aspirin E.C. 81 Mg Tablet) 81 mg PO DAILY [facility] Last Admin: 12/31/19 08:58 Dose: 81 mg Documented by: Dexamethasone (Dexamethasone 4 Mg Tablet) 6 mg PO DAILY@0800 [facility] Stop: 01/01/20 08:01 Last Admin: 12/31/19 08:57 Dose: 6 mg Documented by: Enoxaparin Sodium (Enoxaparin 100 Mg/Ml Syringe) 90 mg 1 mg/kg (90 mg) SC Q12 [facility] Last Admin: 12/31/19 20:40 Dose: 90 mg Documented by: Furosemide (Furosemide 40 Mg Tablet) 40 mg PO DAILY [facility] Last Admin: 12/31/19 08:58 Dose: 40 mg Documented by: Sodium Chloride () 250 mls @ 15 mls/hr IV .[id number] PRN PRN Reason: Saline Flush Last Infusion: 12/29/19 08:27 Dose: Infused Documented by: Sodium Chloride () 250 mls @ 15 mls/hr IV .[id number] PRN PRN Reason: Additional IVPB Infusion Insulin Human Lispro (Insulin Lispro 100 Unit/Ml Insuln.Pen) 0 unit SC TIDCM [facility]; Protocol Last Admin: 12/31/19 17:05 Dose: 2 units Documented by: Isosorbide Mononitrate (Isosorbide Mononitrate 60 Mg Tablet) 60 mg PO QHS [facility] Last Admin: 12/31/19 20:41 Dose: 60 mg Documented by: Losartan Potassium (Losartan Potassium 50 Mg Tablet) 50 mg PO BID [facility] Last Admin: 12/31/19 20:40 Dose: 50 mg Documented by: Metoprolol Tartrate (Metoprolol Tartrate 50 Mg Tablet) 50 mg PO BID [facility] Last Admin: 12/31/19 20:41 Dose: 50 mg Documented by: Metoprolol Tartrate (Metoprolol Tartrate 5 Mg/5 Ml Vial) 5 mg IV Q6H PRN PRN PRN Reason: HR > 120 Last Admin: 12/30/19 17:18 Dose: 5 mg Documented by: Ondansetron HCl (Ondansetron 4 Mg/2 Ml Vial) 4 mg IV Q8H PRN PRN PRN Reason: NAUSEA/VOMITING Oxycodone HCl (Oxycodone 5 Mg Tablet) 5 mg PO Q4H PRN PRN PRN Reason: Pain Score 6-10 Last Admin: 12/24/19 22:38 Dose: 5 mg Documented by: Pantoprazole Sodium (Pantoprazole Sodium 20 Mg Tablet) 20 mg PO BID [facility] Last Admin: 12/31/19 20:40 Dose: 20 mg Documented by: Phenol/Menthol (Phenol/Sodium Phenolate 180ml) 3 spray MM Q2H PRN PRN PRN Reason: SORE THROAT Last Admin: 12/26/19 21:01 Dose: 3 spray Documented by: Pravastatin Sodium (Pravastatin 40 Mg Tablet) 40 mg PO QHS [facility] Last Admin: 12/31/19 20:41 Dose: 40 mg Documented by: Sertraline HCl (Sertraline 50 Mg Tablet) 25 mg PO QHS [facility] Last Admin: 12/31/19 20:41 Dose: 25 mg Documented by: Sodium Chloride (0.9% Saline Lock 10 Ml Syringe) 10 - 40 ml IV UD PRN PRN Reason: SALINE FLUSH Last Admin: 12/30/19 17:18 Dose: 10 ml Documented by: Tamsulosin HCl (Tamsulosin Hcl 0.4 Mg Capsule) 0.4 mg PO QHS [facility] Medical Necessity - Tobacco Use Smoking Status: Former smoker Tobacco Use: Non-smoker Assessment/Plan All Active Problems (Last Reviewed 12/23/19 @ 16:[address] 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 Continue to wean supplemental oxygen to maintain saturations at or above 90%. 2. Continue Decadron and Lovenox. Remdesivir has completed. 3. Continue diuresis as tolerated by hemodynamics and renal function. 4. Encourage incentive spirometer use and mobilize patient as tolerated. IMPRESSIONS: 1. Acute hypoxemic respiratory failure Most likely multifactorial in etiology with COVID-19 pneumonia contributing along with an element of pulmonary hypertension secondary to noncompliance with supplemental oxygen previously. The patient also reportedly has a history of COPD of unknown severity. He has already received convalescent plasma and completed a treatment course of remdesivir. The patient will be continued on Decadron to complete a total of 10 days of therapy along with Lovenox. Bronchodilator therapy will also be continued. Plan to continue gentle diuresis as tolerated by hemodynamics and renal function. Continue to wean supplemental oxygen to maintain saturations at or above 90%. 2. Acute kidney injury Resolved. Patient appears to be improving with stabilization of hemodynamics and holding of baseline antihypertensives. Cannot exclude an element of ATN secondary to hypoxia. Continue to monitor urine output. No indication for renal replacement therapy. 3. Advanced age/obesity/history of lung resection/depression/GERD/hypertension Complicates care, management, recovery and prognosis. Okay to continue medicat ions for depression and GERD. This note was generated with [employer] dictation software. It may contain incorrect words, spelling, and punctuation that were not noted in checking the note before signing. Inpatient E&M: 36160 Subs Hosp L2
[2020-01-01 07:21] LABS: Anion Gap 5 (5-15); BUN 48 mg/dL (7-18); BUN/Creat Ratio 50.9 RATIO (10-20); Calcium,Total 9.5 mg/dL (8.5-10.1); Chloride 104 mmol/L (98-107); Creatinine, Serum 0.94 mg/dL (0.70-1.30); EST Glomerular Filtration Rate 82 mL/min (>60); Est Glom Filt Rate - Afr Amer 99 mL/min (>60); Estimated Creatinine Clearance 66.87 ml/min; Glucose 102 mg/dL (74-106); Sodium Level 139 mmol/L (136-145)
--- NOTE | 2020-01-01 07:27 | NURSING ---
Blood Sugar is 102 per labs drawn this morning.
[2020-01-01] MEDS: Ipratropium/Albuterol Sulfate 3 ML AMPUL.NEB INHALATION ×2 (07:34→19:45)
--- NOTE | 2020-01-01 07:40 | PN_ITS ---
Patient Problems: Active and Suspected Problems (Last Reviewed 12/23/19 @ 16:[address] Ilan Paulino, DO) Acute respiratory failure with hypoxia (Acute) Bilateral pneumonia (Acute) Sepsis (Acute) Elevated serum creatinine (Acute) COVID-19 (Acute) Subjective: Patient seen and examined. He has no complaints. He is on 6 L of oxygen by nasal cannula. He has remained hemodynamically stable. Review of systems otherwise negative. Vitals/I&O's: Vital Signs Temp Pulse Resp BP Pulse Ox 98.6 F 66 18 118/72 93 01/01/20 02:30 01/01/20 07:26 01/01/20 02:30 01/01/20 02:30 01/01/20 02:30 Oxygen Flow Rate (L/min) 6 Oxygen Delivery Method Nasal Cannula Weight: 202 lb 3.274 oz Body Mass Index (BMI) 29.9 Orthostatic Vital Signs Start: 12/30/19 15:36 Freq: q24h Status: Active Protocol: Activity Type Activity Date Activity User E-Sign Co-Sign Detail Recorded Client Recorded Date Recorded By Document 12/30/19 15:36 EY [id number] 12/30/19 15:44 EY 12/30/19 15:36 Orthostatic Vitals Standing -Blood Pressure (90/60-120/80) 118/77 -Extremity Use Left Arm -Pulse Rate (60-100) 133 H Sitting -Blood Pressure (90/60-120/80) 132/69 H -Extremity Use Left Arm -Pulse Rate (60-100) 124 H Lying -Blood Pressure (90/60-120/80) 123/74 H -Extremity Use Left Arm -Pulse Rate (60-100) 119 H Intake and Output for Last 24 Hours 12/30/19 12/31/19 01/01/20 23:59 23:59 23:59 Intake Total 1390 / 1390 1010 / 1010 Output Total 1375 / 1375 1350 / 1600 750 / 750 Balance -340 / -590 -750 / -750 General: Alert, Oriented x3, Cooperative, No apparent distress HEENT: Atraumatic, PERRLA, EOMI, Normocephalic Oral: Moist Mucosa Neck: Supple, No JVD, Negative Carotid Bruits Lungs: - - diminished breath sounds bibasally, no wheezes or crackles. on 6L of oxygen Cardiovascular: Regular rate, Regular Rhythm, Normal S1, Normal S2, No murmurs Abdomen: Bowel Sounds Present, Soft, Non Tender Extremities: No clubbing, No cyanosis, No edema, Capillary Refill Less than 3 Seconds Skin: No rashes, No breakdown Musculoskeletal: No Tenderness to Palpation of Joints or Extremities Lymphatic: No Cervical, Supraclavicular, or Inguinal Adenopathy Neurological: Cranial nerves II-XII grossly intact, Neuro grossly intact, Motor Exam 5/5 strength throughout Psych/Mental Status: Normal Affect, Appropriate, Alert and oriented to time, place, person, mood and affect Microbiology Past 72 Hours 12/27/19 23:40 Sputum, Expectorated/Coughed Gram Stain - Final 12/27/19 23:40 Sputum, Expectorated/Coughed Respiratory Culture - Preliminary Possible Fungus 12/23/19 11:05 Blood Culture (Wb) - Anticubital Left Blood Culture - Final No growth in 5 days. Laboratory Results 12/31/19 08:00: WBC 6.0, RBC 4.44 L, Hgb 13.7, Hct 42.9, MCV 96.6 H, MCH 30.9, MCHC 31.9 L, RDW Std Deviation 46.1 H, RDW Coeff of Jamar 12.9, Plt Count 159, MPV 10.2, Immature Gran % (Auto) 2.000 H, Neut % (Auto) 71.5 H, Lymph % (Auto) 14.4 L, [place] % (Auto) 11.2 H, Eos % (Auto) 0.7, Baso % (Auto) 0.2, Absolute Neuts (au to) 4.3, Absolute Lymphs (auto) 0.86, Nucleated RBC % 0 12/31/19 08:00: Sodium 141, Potassium 3.7, Chloride 106, Carbon Dioxide 29.0, Anion Gap 6, BUN 47 H, Creatinine 1.07, Estim Creat Clear Calc 58.75, Est GFR (MDRD) Af Amer 86, Est GFR (MDRD) Non-Af 71, BUN/Creatinine Ratio 43.9 H, Glucose 83, Calcium 10.0 12/31/19 08:55: POC Glucose 87 12/31/19 12:18: POC Glucose 141 H 12/31/19 16:58: POC Glucose 172 H 01/01/20 06:40: WBC 6.7, RBC 4.22 L, Hgb 13.0, Hct 39.9 L, MCV 94.5 H, MCH 30.8, MCHC 32.6, RDW Std Deviation 44.5 H, RDW Coeff of Jamar 12.9, Plt Count 170, MPV 9.9, Immature Gran % (Auto) 1.200 H, Neut % (Auto) 78.0 H, Lymph % (Auto) 9.9 L, [place] % (Auto) 10.1 H, Eos % (Auto) 0.7, Baso % (Auto) 0.1, Absolute Neuts (auto) 5.2, Absolute Lymphs (auto) 0.66 L, Nucleated RBC % 0 01/01/20 06:40: Sodium 139, Potassium 4.0, Chloride 104, Carbon Dioxide 30.0, Anion Gap 5, BUN 48 H, Creatinine 0.94, Estim Creat Clear Calc 66.87, Est GFR (MDRD) Af Amer 99, Est GFR (MDRD) Non-Af 82, BUN/Creatinine Ratio 50.9 H, Glucose 102, Calcium 9.5 Current Medications Acetaminophen (Acetaminophen 325 Mg Tablet) 650 mg PO Q6H PRN PRN PRN Reason: Pain Score 1-10/Temp > 100.7 F Last Admin: 12/31/19 20:41 Dose: 650 mg Documented by: Albuterol/Ipratropium (Ipratropium/Albuterol Sulfate 3 Ml Ampul.Neb) 3 ml INHALATION Q6HWA.RT [facility] Last Admin: 01/01/20 07:34 Dose: 3 ml Documented by: Amlodipine Besylate (Amlodipine 5 Mg Tablet) 5 mg PO BID [facility] Last Admin: 12/31/19 20:40 Dose: 5 mg Documented by: Aspirin (Aspirin E.C. 81 Mg Tablet) 81 mg PO DAILY [facility] Last Admin: 12/31/19 08:58 Dose: 81 mg Documented by: Dexamethasone (Dexamethasone 4 Mg Tablet) 6 mg PO DAILY@0800 [facility] Stop: 01/01/20 08:01 Last Admin: 12/31/19 08:57 Dose: 6 mg Documented by: Enoxaparin Sodium (Enoxaparin 100 Mg/Ml Syringe) 90 mg 1 mg/kg (90 mg) SC Q12 [facility] Last Admin: 12/31/19 20:40 Dose: 90 mg Documented by: Furosemide (Furosemide 40 Mg Tablet) 40 mg PO DAILY [facility] Last Admin: 12/31/19 08:58 Dose: 40 mg Documented by: Sodium Chloride () 250 mls @ 15 mls/hr IV .[id number] PRN PRN Reason: Saline Flush Last Infusion: 12/29/19 08:27 Dose: Infused Documented by: Sodium Chloride () 250 mls @ 15 mls/hr IV .[id number] PRN PRN Reason: Additional IVPB Infusion Insulin Human Lispro (Insulin Lispro 100 Unit/Ml Insuln.Pen) 0 unit SC TIDCM [facility]; Protocol Last Admin: 01/01/20 07:28 Dose: Not Given Documented by: Isosorbide Mononitrate (Isosorbide Mononitrate 60 Mg Tablet) 60 mg PO QHS [facility] Last Admin: 12/31/19 20:41 Dose: 60 mg Documented by: Losartan Potassium (Losartan Potassium 50 Mg Tablet) 50 mg PO BID [facility] Last Admin: 12/31/19 20:40 Dose: 50 mg Documented by: Metoprolol Tartrate (Metoprolol Tartrate 50 Mg Tablet) 50 mg PO BID [facility] Last Admin: 12/31/19 20:41 Dose: 50 mg Documented by: Metoprolol Tartrate (Metoprolol Tartrate 5 Mg/5 Ml Vial) 5 mg IV Q6H PRN PRN PRN Reason: HR > 120 Last Admin: 12/30/19 17:18 Dose: 5 mg Documented by: Ondansetron HCl (Ondansetron 4 Mg/2 Ml Vial) 4 mg IV Q8H PRN PRN PRN Reason: NAUSEA/VOMITING Oxycodone HCl (Oxycodone 5 Mg Tablet) 5 mg PO Q4H PRN PRN PRN Reason: Pain Score 6-10 Last Admin: 12/24/19 22:38 Dose: 5 mg Documented by: Pantoprazole Sodium (Pantoprazole Sodium 20 Mg Tablet) 20 mg PO BID [facility] Last Admin: 12/31/19 20:40 Dose: 20 mg Documented by: Phenol/Menthol (Phenol/Sodium Phenolate 180ml) 3 spray MM Q2H PRN PRN PRN Reason: SORE THROAT Last Admin: 12/26/19 21:01 Dose: 3 spray Documented by: Pravastatin Sodium (Pravastatin 40 Mg Tablet) 40 mg PO QHS [facility] Last Admin: 12/31/19 20:41 Dose: 40 mg Documented by: Sertraline HCl (Sertraline 50 Mg Tablet) 25 mg PO QHS [facility] Last Admin: 12/31/19 20:41 Dose: 25 mg Documented by: Sodium Chloride (0.9% Saline Lock 10 Ml Syringe) 10 - 40 ml IV UD PRN PRN Reason: SALINE FLUSH Last Admin: 12/30/19 17:18 Dose: 10 ml Documented by: Tamsulosin HCl (Tamsulosin Hcl 0.4 Mg Capsule) 0.4 mg PO QHS [facility] STROKE Vital Signs/Narrative: Vital Signs Pulse 01/01/20 07:26 66 01/01/20 06:00 68 Medical Necessity - Tobacco Use Smoking Status: Former smoker Tobacco Use: Non-smoker Assessment/Plan All Active Problems (Last Reviewed 12/23/19 @ 16:[address] 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 * blood cultures negative * urine for strep and Legionella were also negative. Sputum culture grew a possible fungus * # CKD 3 * Cr is 0.94 today * #Hypokalemia: resolved. #Hypertension: on amlodipine 5mg bid, losartan and metoprolol #Afib: on metoprolol. DVT prophylaxis: lovenox Inpatient E&M: [id number] [facility] Hosp L2
[2020-01-01] MEDS: dexAMETHasone 4 MG Tablet 6 MG PO (08:49)
[2020-01-01] MEDS: Enoxaparin 100 MG/ML Syringe 90 MG SC ×2 (08:49→20:19)
[2020-01-01] MEDS: Pantoprazole Sodium 20 MG Tablet PO ×2 (08:49→20:18)
[2020-01-01] MEDS: Aspirin E.C. 81 MG Tablet PO (08:50)
[2020-01-01] MEDS: Metoprolol Tartrate 50 MG Tablet PO ×2 (08:54→20:18)
[2020-01-01] MEDS: amLODIPine 5 MG Tablet PO ×2 (08:54→20:18)
[2020-01-01] MEDS: Losartan Potassium 50 MG Tablet PO ×2 (08:54→20:18)
[2020-01-01] MEDS: Acetaminophen 325 MG Tablet 650 MG PO ×2 (08:55→20:24)
[2020-01-01] MEDS: Furosemide 40 MG Tablet PO (08:55)
[2020-01-01] MEDS: 0.9% Saline Lock 10 ML Syringe IV (09:38)
[2020-01-01] MEDS: Furosemide 40 MG/4 ML Vial IV (09:38)
--- NOTE | 2020-01-01 09:39 | NURSING ---
This nurse verbally face to face spoke with Dr. Best. Dr. Best does want lasix Iv in addition to the lasix po that Mr. Vann already had this morning.
[2020-01-01 11:35] LABS: Bedside Glucose 139 mg/dL (70-110)
--- NOTE | 2020-01-01 14:57 | NURSING ---
Sitting up in chair for a few hours. Assisted back into bed. going to take a nap. Continuous spo2 maintained in room.
[2020-01-01] MEDS: Sertraline 50 MG Tablet 25 MG PO (20:18)
[2020-01-01] MEDS: Pravastatin 40 MG Tablet PO (20:18)
[2020-01-01] MEDS: Tamsulosin HCl 0.4 MG Capsule PO (20:18)
[2020-01-01] MEDS: Isosorbide Mononitrate 60 MG Tablet PO (20:19)
[2020-01-02] VITALS (12 sets, daily range): BP systolic 109–129; BP diastolic 56–70; PULSE 61–84; RESP 18–20; TEMP 36.3–36.4; O2SAT 83–98
--- NOTE | 2020-01-02 07:26 | PCM.PN.HOSP ---
Patient Problems: Active and Suspected Problems (Last Reviewed 12/23/19 @ 16:[address] Ilan Paulino, DO) Acute respiratory failure with hypoxia (Acute) Bilateral pneumonia (Acute) Sepsis (Acute) Elevated serum creatinine (Acute) COVID-19 (Acute) Vitals/I&O's: Vital Signs Temp Pulse Resp BP Pulse Ox 97.6 F L 79 18 129/68 H 93 01/02/20 01:57 01/02/20 03:00 01/02/20 01:57 01/02/20 01:57 01/02/20 01:57 Oxygen Flow Rate (L/min) 4 Oxygen Delivery Method Nasal Cannula Weight: 92.1 kg Body Mass Index (BMI) 29.9 Orthostatic Vital Signs Start: 12/30/19 15:36 Freq: q24h Status: Active Protocol: Activity Type Activity Date Activity User E-Sign Co-Sign Detail Recorded Client Recorded Date Recorded By Document 12/30/19 15:36 EY [id number] 12/30/19 15:44 EY 12/30/19 15:36 Orthostatic Vitals Standing -Blood Pressure (90/60-120/80 mm Hg) 118/77 -Extremity Use Left Arm -Pulse Rate (60-100 beats/min) 133 H Sitting -Blood Pressure (90/60-120/80 mm Hg) 132/69 H -Extremity Use Left Arm -Pulse Rate (60-100 beats/min) 124 H Lying -Blood Pressure (90/60-120/80 mm Hg) 123/74 H -Extremity Use Left Arm -Pulse Rate (60-100 beats/min) 119 H Intake and Output for Last 24 Hours 12/31/19 01/01/20 01/02/20 23:59 23:59 23:59 Intake Total 1010 / 1010 360 / 360 Output Total 1350 / 1600 1400 / 1400 Balance -340 / -590 -1040 / -1040 Microbiology Past 72 Hours 12/27/19 23:40 Sputum, Expectorated/Coughed Gram Stain - Final 12/27/19 23:40 Sputum, Expectorated/Coughed Respiratory Culture - Preliminary Possible Fungus Laboratory Results 12/23/19 16:07: Miscellaneous Test Pending 01/01/20 11:24: POC Glucose 139 H Current Medications Acetaminophen (Acetaminophen 325 Mg Tablet) 650 mg PO Q6H PRN PRN PRN Reason: Pain Score 1-10/Temp > 100.7 F Last Admin: 01/01/20 20:24 Dose: 650 mg Documented by: Albuterol/Ipratropium (Ipratropium/Albuterol Sulfate 3 Ml Ampul.Neb) 3 ml INHALATION Q6HWA.RT [facility] Last Admin: 01/01/20 19:45 Dose: 3 ml Documented by: Amlodipine Besylate (Amlodipine 5 Mg Tablet) 5 mg PO BID [facility] Last Admin: 01/01/20 20:18 Dose: 5 mg Documented by: Aspirin (Aspirin E.C. 81 Mg Tablet) 81 mg PO DAILY [facility] Last Admin: 01/01/20 08:50 Dose: 81 mg Documented by: Enoxaparin Sodium (Enoxaparin 100 Mg/Ml Syringe) 90 mg 1 mg/kg (90 mg) SC Q12 [facility] Last Admin: 01/01/20 20:19 Dose: 90 mg Documented by: Furosemide (Furosemide 40 Mg Tablet) 40 mg PO DAILY [facility] Last Admin: 01/01/20 08:55 Dose: 40 mg Documented by: Sodium Chloride () 250 mls @ 15 mls/hr IV .[id number] PRN PRN Reason: Saline Flush Last Infusion: 12/29/19 08:27 Dose: Infused Documented by: Sodium Chloride () 250 mls @ 15 mls/hr IV .[id number] PRN PRN Reason: Additional IVPB Infusion Isosorbide Mononitrate (Isosorbide Mononitrate 60 Mg Tablet) 60 mg PO QHS [facility] Last Admin: 01/01/20 20:19 Dose: 60 mg Documented by: Losartan Potassium (Losartan Potassium 50 Mg Tablet) 50 mg PO BID [facility] Last Admin: 01/01/20 20:18 Dose: 50 mg Documented by: Metoprolol Tartrate (Metoprolol Tartrate 50 Mg Tablet) 50 mg PO BID [facility] Last Admin: 01/01/20 20:18 Dose: 50 mg Documented by: Metoprolol Tartrate (Metoprolol Tartrate 5 Mg/5 Ml Vial) 5 mg IV Q6H PRN PRN PRN Reason: HR > 120 Last Admin: 12/30/19 17:18 Dose: 5 mg Documented by: Ondansetron HCl (Ondansetron 4 Mg/2 Ml Vial) 4 mg IV Q8H PRN PRN PRN Reason: NAUSEA/VOMITING Oxycodone HCl (Oxycodone 5 Mg Tablet) 5 mg PO Q4H PRN PRN PRN Reason: Pain Score 6-10 Last Admin: 12/24/19 22:38 Dose: 5 mg Documented by: Pantoprazole Sodium (Pantoprazole Sodium 20 Mg Tablet) 20 mg PO BID [facility] Last Admin: 01/01/20 20:18 Dose: 20 mg Documented by: Phenol/Menthol (Phenol/Sodium Phenolate 180ml) 3 spray MM Q2H PRN PRN PRN Reason: SORE THROAT Last Admin: 12/26/19 21:01 Dose: 3 spray Documented by: Pravastatin Sodium (Pravastatin 40 Mg Tablet) 40 mg PO QHS [facility] Last Admin: 01/01/20 20:18 Dose: 40 mg Documented by: Sertraline HCl (Sertraline 50 Mg Tablet) 25 mg PO QHS [facility] Last Admin: 01/01/20 20:18 Dose: 25 mg Documented by: Sodium Chloride (0.9% Saline Lock 10 Ml Syringe) 10 - 40 ml IV UD PRN PRN Reason: SALINE FLUSH Last Admin: 01/01/20 09:38 Dose: 10 ml Documented by: Tamsulosin HCl (Tamsulosin Hcl 0.4 Mg Capsule) 0.4 mg PO QHS [facility] Last Admin: 01/01/20 20:18 Dose: 0.4 mg Documented by: Medical Necessity - Tobacco Use Smoking Status: Former smoker Tobacco Use: Non-smoker Assessment/Plan All Active Problems (Last Reviewed 12/23/19 @ 16:[address] 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
[2020-01-02] MEDS: Ipratropium/Albuterol Sulfate 3 ML AMPUL.NEB INHALATION ×2 (07:41→13:54)
[2020-01-02] MEDS: Enoxaparin 100 MG/ML Syringe 90 MG SC (09:02)
[2020-01-02] MEDS: 0.9% Saline Lock 10 ML Syringe IV (09:04)
[2020-01-02] MEDS: amLODIPine 5 MG Tablet PO (09:05)
[2020-01-02] MEDS: Metoprolol Tartrate 50 MG Tablet PO (09:05)
[2020-01-02] MEDS: Losartan Potassium 50 MG Tablet PO (09:05)
[2020-01-02] MEDS: Furosemide 40 MG Tablet PO (09:05)
[2020-01-02] MEDS: Aspirin E.C. 81 MG Tablet PO (09:05)
[2020-01-02] MEDS: Pantoprazole Sodium 20 MG Tablet PO (09:05)
[2020-01-02] MEDS: Acetaminophen 325 MG Tablet 650 MG PO (09:12)
--- NOTE | 2020-01-02 11:49 | CASEMGMT ---
Addendum entered by Edwardo Arriaga 01/02/20 12:41: Call to to update of discharge. Notified of [facility] providing oxygen and portable tank will be brought to hospital. is in quarantine, but will pick patient up. Updated not to come into hospital, but to call from car and pt will be brought out. states they have a pulse oximeter at home. 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 Harmony SALMERON Original Note: SANDRA VASQUEZ Note: anticipate discharge today. Patient will require oxygen and [facility] is preference. Script and clinicals faxed to [facility] [place]. Harmony SALMERON
--- NOTE | 2020-01-02 12:39 | DCINST_ITS ---
- Discharge Diagnoses Current Active Problems: Current Active and Chronic Problems (Last Reviewed 12/23/19 @ 16:[address] 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 Continue to use your oxygen all the time. Continue to use your incentive spirometer. Continue to remain active and eat healthy. Let your doctor know if you develop fever >101.3F or have progressive worsening shortness of breath. Follow-up with your primary care doctor and also with pulmonology to have your continued oxygen use reevaluated. Be careful of going near open flames whilst on oxygen. Do not smoke whilst on oxygen. Allergies/Adverse Reactions: Allergies No Known Allergies Allergy (Verified 12/23/19 10:30) Medications to take at Discharge Albuterol Inhaler [Ventolin Hfa] 1 - 2 puff INHALATION Q4H PRN PRN 12/04/15 Aspirin E.C. [Ecotrin] 81 mg PO DAILY@0800 12/04/15 Sertraline HCl [Zoloft] 50 mg PO DAILY 12/04/15 Umeclidinium Brm/Vilanterol Tr [Anoro Ellipta 62.5-25 Mcg INH] 1 ea IH DAILY 06/23/18 tamsulosin 0.4 mg capsule 0.4 mg PO DAILY #30 cap 09/16/18 amlodipine 10 mg tablet 5 mg PO BID tab 10/13/19 isosorbide mononitrate 60 mg tablet,extended release 24 hr 60 mg PO QPM tab 10/21/19 Acetaminophen [Tylenol] 1,000 mg PO DAILY PRN PRN 12/23/19 Furosemide 40 mg PO DAILY 12/23/19 Ibuprofen 400 mg PO DAILY PRN PRN 12/23/19 Losartan Potassium [Cozaar] 50 mg PO BID 12/23/19 Omeprazole 20 mg PO BID 12/23/19 Pravastatin Sodium 40 mg PO DAILY 12/23/19 Sertraline HCl [Zoloft] 25 mg PO QHS 12/23/19 Metoprolol Tartrate [Lopressor (beta az[place])] 50 mg PO BID 30 Days #60 tab 01/02/20 The following prescriptions were given: Metoprolol Tartrate [Lopressor (beta az[place])] 50 mg PO BID 30 Days #60 tab Transmission Status: Received by [facility] Primary Care Physician: Rosana Douglass DO [Primary Care Provider] - Please follow up with your Primary Care Physician in: within 2 weeks Test Results: Test results from this visit will be discussed in further detail at your follow- up appointment, if applicable. Please Follow Up With: Sigifredo Best DO When: in 2 weeks Proposed Discharge Date: 01/02/20
--- NOTE | 2020-01-02 12:46 | PCM.DC.SUM ---
Discharge Date and Diagnosis - Problem List Patient Problems: Active and Suspected Problems (Last Reviewed 12/23/19 @ 16:[address] Ilan Paulino DO) Acute respiratory failure with hypoxia (Acute) Bilateral pneumonia (Acute) Sepsis (Acute) Elevated serum creatinine (Acute) COVID-19 (Acute) Date of Admission: 12/23/19 Date of Discharge: 01/02/20 - Primary Discharge Diagnosis Acute Problems: Active Problems (Last Reviewed 12/23/19 @ 16:[address] Ilan Paulino DO) Acute hypoxic respiratory failure Acute COVID-19 pneumonia Hypokalemia Acute kidney injury on CKD stage 3, prerenal secondary to dehydration/acute COVID-19 pneumonia, present on admission - Secondary Discharge Diagnosis Chronic Problems: Chronic Problems (Last Reviewed 12/23/19 @ 16:[address] 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 Pneumonitis associated with Covid 19 should be ruled out. Electronically Signed: Jake Bazzi, at 12:43 EDT , Service support , Chest CTA 12/25/19 13:34 IMPRESSION: 1. No pulmonary embolism 2. Severe emphysema, viral infection. 3. Mild pulmonary arterial hypertension, right heart enlargement. Electronically Signed: Zach Kaplan, at 17:34 EST Tel , Service support , Infectious disease Pulmonology Operations: None Procedures: None Summary of Care Provided: The patient is a 79 year old M with past medical history of CAD/hypertension/lung CA status post left lower lobectomy who comes in with a 1 week history of weakness and progressive shortness of breath. Patient was found to be hypoxic in the emergency department and required use of Ventimask. This progressed to the use of BiPAP. COVID-19 PCR was positive. Admitting chest x-ray showed new wedge-shaped peripheral consolidation in the right midlung with mild increased markings at the lung bases and blunting of both costophrenic angles. There was also evidence of pneumonitis. CT of the chest was negative for acute PE. It showed scattered regional groundglass opacities. Patient was admitted to the Covid floor, managed on dexamethasone, convalescent plasma and completed a 5-day course of remdesivir. Pulmonology and ID were following. Blood cultures were negative. Urine for Streptococcus and legionella antigen were negative. Patient sputum cultures grew possible fungus. He had hypokalemia that resolved with treatment. Patient continued to improve and was on 3 L at a time of being discharged. He qualified for home oxygen. Follow-up with his primary care doctor as well as pulmonology within 2 weeks. Patient Problems: Active and Suspected Problems (Last Reviewed 12/23/19 @ 16:[address] Ilan Paulino, ) Acute respiratory failure with hypoxia (Acute) Bilateral pneumonia (Acute) Sepsis (Acute) Elevated serum creatinine (Acute) COVID-19 (Acute) Subjective: On the day of discharge, patient was seen and examined. He was on 3L oxygen and qualified for home oxygen. Denied any fever or chills. Objective: Physical exam: General: Alert, Oriented x3, Cooperative, No apparent distress, on 3L oxygen HEENT: Atraumatic, PERRLA, EOMI, Normocephalic Oral: Moist Mucosa Neck: Supple, No JVD, Negative Carotid Bruits Lungs: - - diminished breath sounds bibasally, no wheezes or crackles. on 6L of oxygen Cardiovascular: Regular rate, Regular Rhythm, Normal S1, Normal S2, No murmurs Abdomen: Bowel Sounds Present, Soft, Non Tender Extremities: No clubbing, No cyanosis, No edema, Capillary Refill Less than 3 Seconds Skin: No rashes, No breakdown Musculoskeletal: No Tenderness to Palpation of Joints or Extremities Lymphatic: No Cervical, Supraclavicular, or Inguinal Adenopathy Neurological: Cranial nerves II-XII grossly intact, Neuro grossly intact, Motor Exam 5/5 strength throughout Psych/Mental Status: Normal Affect, Appropriate, Alert and oriented to time, place, person, mood and affect - Physical Exam Vitals/I&O's: Vital Signs Temp Pulse Resp BP Pulse Ox 97.3 F L 71 20 H 111/56 L 87 01/02/20 08:56 01/02/20 11:32 01/02/20 08:56 01/02/20 09:05 01/02/20 11:14 Oxygen Flow Rate (L/min) [ 3 AMBULATION with Oxygen] Oxygen Flow Rate (L/min) 3 Oxygen Delivery Method Nasal Cannula Weight: 92.1 kg Body Mass Index (BMI) 29.9 Orthostatic Vital Signs Start: 12/30/19 15:36 Freq: q24h Status: Active Protocol: Activity Type Activity Date Activity User E-Sign Co-Sign Detail Recorded Client Recorded Date Recorded By Document 12/30/19 15:36 EY [id number] 12/30/19 15:44 EY 12/30/19 15:36 Orthostatic Vitals Standing -Blood Pressure (90/60-120/80) 118/77 -Extremity Use Left Arm -Pulse Rate (60-100) 133 H Sitting -Blood Pressure (90/60-120/80) 132/69 H -Extremity Use Left Arm -Pulse Rate (60-100) 124 H Lying -Blood Pressure (90/60-120/80) 123/74 H -Extremity Use Left Arm -Pulse Rate (60-100) 119 H Intake and Output for Last 24 Hours 12/31/19 01/01/20 01/02/20 23:59 23:59 23:59 Intake Total 1010 / 1010 360 / 360 Output Total 1350 / 1600 1400 / 1400 Balance -340 / -590 -1040 / -1040 Microbiology Past 72 Hours 12/27/19 23:40 Sputum, Expectorated/Coughed Gram Stain - Final 12/27/19 23:40 Sputum, Expectorated/Coughed Respiratory Culture - Preliminary Possible Fungus Laboratory Results 12/23/19 16:07: Miscellaneous Test Pending Current Medications Acetaminophen (Acetaminophen 325 Mg Tablet) 650 mg PO Q6H PRN PRN PRN Reason: Pain Score 1-10/Temp > 100.7 F Last Admin: 01/02/20 09:12 Dose: 650 mg Documented by: Albuterol/Ipratropium (Ipratropium/Albuterol Sulfate 3 Ml Ampul.Neb) 3 ml INHALATION Q6HWA.RT [facility] Last Admin: 01/02/20 07:41 Dose: 3 ml Documented by: Amlodipine Besylate (Amlodipine 5 Mg Tablet) 5 mg PO BID [facility] Last Admin: 01/02/20 09:05 Dose: 5 mg Documented by: Aspirin (Aspirin E.C. 81 Mg Tablet) 81 mg PO DAILY [facility] Last Admin: 01/02/20 09:05 Dose: 81 mg Documented by: Enoxaparin Sodium (Enoxaparin 100 Mg/Ml Syringe) 90 mg 1 mg/kg (90 mg) SC Q12 [facility] Last Admin: 01/02/20 09:02 Dose: 90 mg Documented by: Furosemide (Furosemide 40 Mg Tablet) 40 mg PO DAILY [facility] Last Admin: 01/02/20 09:05 Dose: 40 mg Documented by: Sodium Chloride () 250 mls @ 15 mls/hr IV .[id number] PRN PRN Reason: Saline Flush Last Infusion: 12/29/19 08:27 Dose: Infused Documented by: Sodium Chloride () 250 mls @ 15 mls/hr IV .[id number] PRN PRN Reason: Additional IVPB Infusion Isosorbide Mononitrate (Isosorbide Mononitrate 60 Mg Tablet) 60 mg PO QHS [facility] Last Admin: 01/01/20 20:19 Dose: 60 mg Documented by: Losartan Potassium (Losartan Potassium 50 Mg Tablet) 50 mg PO BID [facility] Last Admin: 01/02/20 09:05 Dose: 50 mg Documented by: Metoprolol Tartrate (Metoprolol Tartrate 50 Mg Tablet) 50 mg PO BID [facility] Last Admin: 01/02/20 09:05 Dose: 50 mg Documented by: Metoprolol Tartrate (Metoprolol Tartrate 5 Mg/5 Ml Vial) 5 mg IV Q6H PRN PRN PRN Reason: HR > 120 Last Admin: 12/30/19 17:18 Dose: 5 mg Documented by: Ondansetron HCl (Ondansetron 4 Mg/2 Ml Vial) 4 mg IV Q8H PRN PRN PRN Reason: NAUSEA/VOMITING Oxycodone HCl (Oxycodone 5 Mg Tablet) 5 mg PO Q4H PRN PRN PRN Reason: Pain Score 6-10 Last Admin: 12/24/19 22:38 Dose: 5 mg Documented by: Pantoprazole Sodium (Pantoprazole Sodium 20 Mg Tablet) 20 mg PO BID [facility] Last Admin: 01/02/20 09:05 Dose: 20 mg Documented by: Phenol/Menthol (Phenol/Sodium Phenolate 180ml) 3 spray MM Q2H PRN PRN PRN Reason: SORE THROAT Last Admin: 12/26/19 21:01 Dose: 3 spray Documented by: Pravastatin Sodium (Pravastatin 40 Mg Tablet) 40 mg PO QHS [facility] Last Admin: 01/01/20 20:18 Dose: 40 mg Documented by: Sertraline HCl (Sertraline 50 Mg Tablet) 25 mg PO QHS [facility] Last Admin: 01/01/20 20:18 Dose: 25 mg Documented by: Sodium Chloride (0.9% Saline Lock 10 Ml Syringe) 10 - 40 ml IV UD PRN PRN Reason: SALINE FLUSH Last Admin: 01/02/20 09:04 Dose: 10 ml Documented by: Tamsulosin HCl (Tamsulosin Hcl 0.4 Mg Capsule) 0.4 mg PO QHS [facility] Last Admin: 01/01/20 20:18 Dose: 0.4 mg Documented by: Discharge Diet: Low fat/ Low Cholesterol, 2000 mg Sodium Diet Discharge Activity: Return to Normal Activity Home Medications: Medications to take at Discharge Albuterol Inhaler [Ventolin Hfa] 1 - 2 puff INHALATION Q4H PRN PRN 12/04/15 Aspirin E.C. [Ecotrin] 81 mg PO DAILY@0800 12/04/15 Sertraline HCl [Zoloft] 50 mg PO DAILY 12/04/15 Umeclidinium Brm/Vilanterol Tr [Anoro Ellipta 62.5-25 Mcg INH] 1 ea IH DAILY 06/23/18 tamsulosin 0.4 mg capsule 0.4 mg PO DAILY #30 cap 09/16/18 amlodipine 10 mg tablet 5 mg PO BID tab 10/13/19 isosorbide mononitrate 60 mg tablet,extended release 24 hr 60 mg PO QPM tab 10/21/19 Acetaminophen [Tylenol] 1,000 mg PO DAILY PRN PRN 12/23/19 Furosemide 40 mg PO DAILY 12/23/19 Ibuprofen 400 mg PO DAILY PRN PRN 12/23/19 Losartan Potassium [Cozaar] 50 mg PO BID 12/23/19 Omeprazole 20 mg PO BID 12/23/19 Pravastatin Sodium 40 mg PO DAILY 12/23/19 Sertraline HCl [Zoloft] 25 mg PO QHS 12/23/19 Metoprolol Tartrate [Lopressor (beta azalia)] 50 mg PO BID 30 Days #60 tab 01/02/20 Following Prescriptions Were Given to Patient: Metoprolol Tartrate [Lopressor (beta azalia)] 50 mg PO BID 30 Days #60 tab Transmission Status: Received by [facility] Primary Care Physician: Rosana Douglass DO [Primary Care Provider] - Please follow up with your Primary Care Physician in: within 2 weeks Please Follow Up With: Sigifredo Best DO When: in 2 weeks Disposition: Home Minutes spent on discharge:: 40 Patient Condition:: Stable Medical Necessity - Tobacco Use Smoking Status: Former smoker Tobacco Use: Non-smoker Meaningful Use Info Meaningful Use Diagnoses (Choose all that apply): None applicable Inpatient E&M: 09708 Disch Hosp
--- NOTE | 2020-01-03 15:20 | CASEMGMT ---
DC DATE: DC DISPOSITION: DC DIAGNOSIS: SARS COVID 2 Intro role of CM to patient via phone. Patient states he is feeling improved but still tired. He is wearing his oxygen continuously. He will call Dr. Douglass's office tomorrow for a phone or virtual visit. Patient has his medications and no questions. No care improvement suggestions were given. The patient and his are isolating and they have people to bring what they need to the home. Harmony UNDERWOODN RN ACM
== END 2020-01-02 16:45 | disposition home or self-care (01) | DRG 177 ==
LOC: ED 13:00 → ICU 14:15 → MS2 21:37
PROVIDERS: Internal Medicine Infectious Disease; Student in an Organized Health Care Education/Training Program; Emergency Provider Emergency Medicine; PCP Internal Medicine; Visit Provider Internal Medicine
DX: U07.1 COVID-19 (principal); J12.89 Other viral pneumonia; J96.01 Acute respiratory failure with hypoxia; J44.0 Chronic obstructive pulmonary disease with (acute) lower respiratory infection; N17.9 Acute kidney failure, unspecified; I12.9 Hypertensive chronic kidney disease with stage 1 through stage 4 chronic kidney disease, or unspecified chronic kidney disease; N18.30 Chronic kidney disease, stage 3 unspecified; I25.10 Atherosclerotic heart disease of native coronary artery without angina pectoris; K21.00 Gastro-esophageal reflux disease with esophagitis, without bleeding; Z87.891 Personal history of nicotine dependence; R73.9 Hyperglycemia, unspecified; Z90.2 Acquired absence of lung [part of]; Z85.51 Personal history of malignant neoplasm of bladder; Z91.19 Patient's noncompliance with other medical treatment and regimen; I27.21 Secondary pulmonary arterial hypertension; F32.9 Major depressive disorder, single episode, unspecified; E66.9 Obesity, unspecified; Z68.29 Body mass index [BMI] 29.0-29.9, adult; I48.91 Unspecified atrial fibrillation; E87.6 Hypokalemia
CPT/HCPCS: 36415; 36600; 71045; 71275; 80048; 80053; 81001; 82803; 82962; 83605; 83735; 84145; 84484; 85025; 85379; 85610; 85730; 86900; 86901; 87040; 87070; 87077; 87086; 87107; 87205; 87449; 87635; 93005; 94002; 94003; 94640; 94762; 97162; 97165; 99251; 99285; J7030; J7040; J7050; Q9967; A4216; G0463; J0696; J1940; U0002

== ENCOUNTER → 2020-04-11 15:19 | Outpatient (CLI) | payer MEDICARE, OTHER, SELFPAY ==
[2020-04-11 14:25] VITALS: BMI 30.1
[2020-04-11 16:43] LABS: Absolute Lymphocyte Count 1.43 X10^3/uL (0.83-4.51); Absolute Neutrophil Count 3.2 X10^3/uL (2.0-7.7); Basophil# 0.08 X10^3/uL; Basophil% 1.4 % (0-1); Eosinophil# 0.27 X10^3/uL; Eosinophils% 4.8 % (0-5); Hematocrit 40.7 % (40-54); Hemoglobin 13.5 g/dL (13.0-16.5); Lymphocyte # 1.43 X10^3/ul (4.0); Lymphocyte % 25.6 % (19-41); Mean Corp Hgb Conc 33.2 g/dL (32-36); Mean Corpuscular Hgb 31.3 pg (27.0-32.0); Mean Corpuscular Volume 94.4 fL (80-94); Mean Platelet Vol. 10.1 fl (6.2-12.0); Monocyte# 0.55 X10^3/uL; Monocyte% 9.8 % (0-10); NRBC Flagged by Analyzer 0 % (0-5); Neutrophil # 3.24 X10^3/uL (2.7-7.7); Platelet Count 144 K/mm3 (150-450); RBC Distribution Width CV 12.7 % (11.6-14.6); RBC Distribution Width SD 43.7 fl (35.1-43.9); Red Blood Count 4.31 M/mm3 (4.6-6.2); White Blood Count 5.6 K/mm3 (4.4-11.0)
[2020-04-11 17:09] LABS: BNP,B-Type NATRIURETIC PEPTIDE 251.9 pg/mL (0-100)
[2020-04-11 17:20] LABS: Anion Gap 4 (5-15); BUN 26 mg/dL (7-18); BUN/Creat Ratio 20.8 RATIO (10-20); Calcium,Total 10.2 mg/dL (8.5-10.1); Chloride 106 mmol/L (98-107); Creatinine, Serum 1.25 mg/dL (0.70-1.30); EST Glomerular Filtration Rate 59 mL/min (>60); Est Glom Filt Rate - Afr Amer 72 mL/min (>60); Glucose 89 mg/dL (74-106); Potassium 3.5 mmol/L (3.5-5.1); Sodium Level 140 mmol/L (136-145); T4 Free Direct 1.13 ng/dL (0.76-1.46)
== END ==
PROVIDERS: PCP Internal Medicine; Referring Provider Nurse Practitioner Family; Visit Provider Nurse Practitioner Family
DX: U07.1 COVID-19 (principal); R06.00 Dyspnea, unspecified; I48.91 Unspecified atrial fibrillation
CPT/HCPCS: 36415; 80048; 83880; 84439; 84443; 85025

== ENCOUNTER → 2020-04-16 09:24 | Outpatient (CLI) | payer MEDICARE, OTHER, SELFPAY ==
[2020-01-16 07:38] VITALS: BMI 29.9
[2020-04-11 14:25] VITALS: BMI 30.1
--- NOTE | 2020-04-16 13:30 | PFT ---
INTRODUCTION: The patient is a 79-year-old male that presents for pulmonary function studies secondary to a diagnosis of dyspnea. Respiratory therapy reports good patient effort. Bronchodilators were used during testing. INTERPRETATION: Forced expiration spirometry demonstrates the presence of a mild large airways obstructive ventilatory defect. There was no significant response to aerosolized bronchodilators, based upon strict ATS criteria. Spirograms are of good quality and do not plateau indicating slow emptying of the lungs. Body plethysmography was performed and revealed an elevated RV, indicative of underlying air trapping. Diffusing capacity by single breath CO was reduced at 47% of predicted. IMPRESSION: Irreversible mild large airways obstructive ventilatory defect with associated air trapping and disproportionate reduction in diffusing capacity.
== END ==
PROVIDERS: PCP Internal Medicine; Referring Provider Nurse Practitioner Acute Care; Visit Provider Nurse Practitioner Acute Care
DX: R06.00 Dyspnea, unspecified (principal)
CPT/HCPCS: 94060; 94726; 94729

== ENCOUNTER → 2020-04-19 11:13 | Outpatient (CLI) | payer MEDICARE, OTHER, SELFPAY ==
[2020-01-16 07:38] VITALS: BMI 29.9
[2020-04-11 14:25] VITALS: BMI 30.1
[2020-04-19 11:15] VITALS: PULSE 102; PULSE 105; PULSE 106; PULSE 109; PULSE 110; O2SAT 85; O2SAT 86; O2SAT 88; O2SAT 89; O2SAT 93
--- NOTE | 2020-04-19 12:33 | CPS ---
Room air rest pulse ox 85%. Pt started walk on his tank at 3 lpm pulse dose. Pt was increased to 4 lpm pulse dose at 1 min. At 2 min pt was changed to continuous 3lpm. 4 minutes into walk pt was increased to 4 lpm. Pt was increased to 6 lpm continuous at 5 minutes into walk.
--- NOTE | 2020-04-20 10:32 | WT_ITS ---
PSN 6 Minute Walk Test - 6 Minute Walk Test 6 Minute Walk Test: 6 Minute Walk Test PSN:6-Minute Walk Test Start: 04/19/20 12:26 Freq: Status: Active Protocol: [id number].6MINW Document 04/19/20 11:15 [facility] (Rec: 04/19/20 12:39 [facility] [id number]) 6 Minute Walk Test Date Performed 04/19/20 Time Performed 11:15 Height 5 ft 10 in Weight: 208 lb Weight in Pounds 208.[address]: Veronika Assistive device used: None Pre-test Oxygen Delivery Method Room Air Pulse Ox (%) 85 Pulse Rate (60-100 beats/min) 110 H Dyspnea Dexter Scale (0-10) 0 Exertion Dexter Scale (6-20) 6 1st minute Oxygen Flow Rate (L/min) (L/min) 3 Oxygen Delivery Method Nasal Cannula Pulse Ox (%) 86 Pulse Rate (60-100 beats/min) 106 H Dyspnea Dexter Scale (0-10) 0 2nd minute Oxygen Flow Rate (L/min) (L/min) 4 Oxygen Delivery Method Nasal Cannula Pulse Ox (%) 89 Pulse Rate (60-100 beats/min) 110 H 3rd minute Oxygen Flow Rate (L/min) (L/min) 3 Oxygen Delivery Method Nasal Cannula Pulse Ox (%) 93 Pulse Rate (60-100 beats/min) 105 H 4th minute Oxygen Flow Rate (L/min) (L/min) 3 Oxygen Delivery Method Nasal Cannula Pulse Ox (%) 85 Pulse Rate (60-100 beats/min) 109 H Dyspnea Dexter Scale (0-10) 2 Reported Symptoms Increased Work of Breathing 5th minute Oxygen Flow Rate (L/min) (L/min) 4 Oxygen Delivery Method Nasal Cannula Pulse Ox (%) 88 Pulse Rate (60-100 beats/min) 109 H Dyspnea Dexter Scale (0-10) 2 Reported Symptoms Increased Work of Breathing 6th minute Oxygen Flow Rate (L/min) (L/min) 6 Oxygen Delivery Method Nasal Cannula Pulse Ox (%) 89 Pulse Rate (60-100 beats/min) 109 H Dyspnea Dexter Scale (0-10) 2 Exertion Dexter Scale (6-20) 11 Post-test Oxygen Flow Rate (L/min) (L/min) 6 Oxygen Delivery Method Nasal Cannula Pulse Ox (%) 93 Pulse Rate (60-100 beats/min) 102 H Full Laps Walked 12 Partial Lap, Number of Tiles Walked 12 Total Distance Walked (ft) 720 04/19/20 12:33 Cardiopulmonary Services by Rosalie Gonzalez Room air rest pulse ox 85%. Pt started walk on his tank at 3 lpm pulse dose. Pt was increased to 4 lpm pulse dose at 1 min. At 2 min pt was changed to continuous 3lpm. 4 minutes into walk pt was increased to 4 lpm. Pt was increased to 6 lpm continuous at 5 minutes into walk. Initialized on 04/19/20 12:33 - END OF NOTE - Interpretation Interpretation: The patient ambulated 720 feet over the course of 6 minutes without assistive devices or breaks. Pretesting oxygen saturation was noted to be 85% on room air. Oxygenation improved to 92% on 3 L/min pulsed dose at rest. With ambulation, the patient desaturated on multiple occasions, requiring a transition to continuous flow oxygen with a rate that had to be eventually increased to 6 L/min. - Recommendations Recommendations: 3 L/min of pulsed dose supplemental oxygen can be utilized while at rest. However, 6 L/min of continuous flow oxygen should be utilized with exertion.
== END ==
PROVIDERS: PCP Internal Medicine; Referring Provider Nurse Practitioner Acute Care; Visit Provider Nurse Practitioner Acute Care
DX: R06.00 Dyspnea, unspecified (principal)
CPT/HCPCS: 94618

== ENCOUNTER → 2020-04-23 07:01 | Outpatient (CLI) | payer MEDICARE, OTHER, SELFPAY ==
[2020-04-11 14:25] VITALS: BMI 30.1
--- NOTE | 2020-04-23 15:18 | STRESSREP ---
Stress Test Report Oncologic myocardial perfusion stress test. 79-year-old man with a history of atrial fibrillation. Patient status post coronary bypass surgery. Patient with chest discomfort with exertion. Stress protocol: Resting EKG demonstrates atrial fibrillation with a rate of 114 bpm resting blood pressure is 130/74 mmHg. 0.4 mg of regadenoson was infused per usual protocol followed by rapid intravenous saline flush injection continuous EKG monitoring was performed. Patient maintained atrial fibrillation flutter rhythm with a rate of 115 bpm throughout. The resting blood pressure is 1 and 38/74 with a final blood pressure 148/84 mmHg rate-pressure product was 17,000. Maximum workload was 1 metabolic equivalent. Myocardial perfusion protocol. 14.4 mCi of technetium 99m sestamibi was injected at rest. 0.4 mg of regadenoson was infused per usual protocol. Peak infusion 44.5 mCi of technetium 99m sestamibi was injected stress images were obtained stress and rest images were reconstructed and compared in the short axis vertical long horizontal long axis. Gated images were also obtained Perfusion SPECT analysis: Review of the stress images demonstrate normal perfusion in our areas of the myocardium the resting images demonstrate a similar pattern. No obvious reversibility is noted suggest ischemia. Gated SPECT analysis: The gated ejection fraction was not obtained. Conclusion: Normal pharmacologic myocardial perfusion stress test.
== END ==
PROVIDERS: PCP Internal Medicine; Referring Provider Nurse Practitioner Family; Visit Provider Nurse Practitioner Family
DX: I25.10 Atherosclerotic heart disease of native coronary artery without angina pectoris (principal); U07.1 COVID-19; I10 Essential (primary) hypertension; I27.21 Secondary pulmonary arterial hypertension; I48.91 Unspecified atrial fibrillation; E78.5 Hyperlipidemia, unspecified; R06.00 Dyspnea, unspecified; C34.90 Malignant neoplasm of unspecified part of unspecified bronchus or lung; Z95.1 Presence of aortocoronary bypass graft
CPT/HCPCS: 78452; 93017; 93225; 93226; A9500; A4216; J2785

== ENCOUNTER 2020-06-21 20:06 | Inpatient (IN) | payer MEDICARE, OTHER, SELFPAY ==
[2020-04-11 14:25] VITALS: BMI 30.1
[2020-06-21] VITALS (12 sets, daily range): BP systolic 123–148; BP diastolic 79–99; PULSE 104–114; RESP 18–36; TEMP 36.6–36.7; O2SAT 90–95; BMI 31.4
--- NOTE | 2020-06-21 20:08 | ED.RN ---
RN CALLED FOR EKG, PULLED OLD EKGS FOR
--- NOTE | 2020-06-21 20:24 | EKG12_ITS ---
Test Reason : CP Blood Pressure : / mmHG Vent. Rate : 113 BPM Atrial Rate : 113 BPM P-R Int : 162 ms QRS Dur : 114 ms QT Int : 372 ms P-R-T Axes : 000 193 092 degrees QTc Int : 510 ms Sinus tachycardia with occasional Premature ventricular complexes Low voltage QRS (Limb Leads) Poor R wave progression Nonspecific ST abnormality Abnormal ECG Confirmed by STACEY GARCIA, REGINE ([id number]), brands editor GABRIELLA IBARRA ([id number]) on 06/25/2020 10:18:51 AM Referred By: TONY Confirmed By:REGINE IBARRA MD
--- NOTE | 2020-06-21 20:30 | ED.DCSUM_ITS ---
HPI History of Present Illness Chief Complaint: Shortness of Breath Narrative Narrative: Patient presents via EMS for shortness of breath. He had Covid about 6 months ago and has been short of breath since then and has been on 6 L of oxygen however in the past few days he has been much worse he has exertional dyspnea with cough he has no fever or chills he is chronic lower extremity edema also since he has had Covid which has not changed. He has no chest pain or pleuritic component. He has no back pain or tearing sensation. Past medical history: Reviewed, it is extensive includes sepsis pneumonia COVID- 19, atrial fibrillation heart disease bypass surgery pulmonary hypertension hyperlipidemia, bladder and lung cancer Medications: Reviewed Social history: Noncontributory Review of systems: All systems negative except as indicated General: No fever. Complaining of generalized weakness Eyes: No visual changes ENT: No upper airway congestion, normal voice Neck: No neck pain Cardiovascular: No chest pain Respiratory: Shortness of breath as in HPI Gastrointestinal: No abdominal pain, nausea vomiting or diarrhea Genitourinary: No dysuria Musculoskeletal: Bilateral lower extremity edema which is chronic Skin: No rash Neurological: No memory loss, confusion or any focal weakness Psych: No recent behavioral changes Hematologic: No easy bleeding or easy bruising [facility] Medical History (Updated 06/21/20 @ 23:[address] Valeriy Wilson MD) A-fib Abnormal electrocardiogram Acute hypoxemic respiratory failure Aspiration pneumonia Atherosclerotic heart disease of [place] coronary artery without angina pectoris Bladder cancer Carotid bruit CKD (chronic kidney disease) COPD (chronic obstructive pulmonary disease) Diverticulitis Essential (primary) hypertension GERD with esophagitis History of echocardiogram (12/10/15) History of nephrolithiasis History of stress test (08/21/16) HLD (hyperlipidemia) Hypoxia Kidney stone Lung cancer Pulmonary nodules Renal calculi Secondary pulmonary arterial hypertension Shortness of breath Home Medications albuterol sulfate 1 - 2 puff INHALATION Q4H PRN PRN 12/04/15 [History Last Taken 12/21/19] sertraline 50 mg PO DAILY 12/04/15 [History Last Taken 12/23/19] umeclidinium-vilanterol 1 ea IH DAILY 06/23/18 [History Last Taken 06/30/18 08:00] tamsulosin 0.4 mg capsule 0.4 mg PO DAILY #30 cap 09/16/18 [History Last Taken 12/22/19] isosorbide mononitrate 60 mg tablet,extended release 24 hr 60 mg PO QPM tab 10/21/19 [History Last Taken 12/22/19] Ibuprofen 400 mg PO DAILY PRN PRN 12/23/19 [History Last Taken 1 Week Ago ~12/16/19] acetaminophen 1,000 mg PO DAILY PRN PRN 12/23/19 [History Last Taken 12/23/19] furosemide 40 mg PO DAILY 12/23/19 [History Last Taken 12/22/19] omeprazole 20 mg PO BID 12/23/19 [History Last Taken 12/23/19] pravastatin 40 mg PO DAILY 12/23/19 [History Last Taken 12/22/19] sertraline 75 mg PO QHS 12/23/19 [History Last Taken 12/22/19] amlodipine 10 mg tablet 5 mg PO DAILY #90 tab 01/31/20 [Rx Last Taken Unknown] losartan 50 mg tablet 25 mg PO BID #180 tab 01/31/20 [Rx Last Taken Unknown] metoprolol tartrate 50 mg tablet 50 mg PO BID #180 tab 01/31/20 [Rx Last Taken Unknown] apixaban 5 mg tablet 5 mg PO BID #180 tab 02/27/20 [Rx Last Taken Unknown] Allergy/AdvReac Type Severity Reaction Status Date / Time No Known Allergies Allergy Verified 04/11/20 14:23 Family History (Reviewed 01/16/20 @ 08:26 by Liliam Mcintosh [employer], [employer]) Mother Cancer Lung CA Brother Diabetes Surgical History H/O coronary artery bypass surgery (07/20/03) History of left heart catheterization (LHC) (10/18/12) History of lithotripsy (02/2019) History of lobectomy of lung History of tonsillectomy History of transurethral resection of prostate (06/03/06) Social History (Updated 04/11/20 @ 16:24 by Nikolai Robert [employer], [employer]) Smoking Status: Former smoker alcohol intake: current alcohol intake frequency: a few times a week Alcohol type: wine substance use type: does not use caffeine: Yes Type: coffee Number of servings: 3 what type of physical activity do you participate in: none seatbelt use: always do you feel safe at home: Yes EXAM Physical Exam Narrative Exam Narrative: Physical exam General: Patient is tachypneic he appears in distress he is speaking in an 4-5 word sentences. Head: Normocephalic, Atraumatic Eyes: Conjunctiva not pale ENT: Slightly dry mucous membranes Neck: Supple, Nontender, No lymphadenopathy Cardiovascular: Regular tachycardia no obvious murmurs Respiratory: He has coarse bilateral breath sounds he is tachypneic and speaking in 4 word sentences Abdomen: Soft, Nontender, Nondistended Back: Nontender, Normal Inspection. Negative for: CVA tenderness Extremities: Nontender, bilateral lower extremity edema without any signs of cellulitis. Skin: Normal color, No rash Neurological: Alert, Normal Strength, Normal Sensation Psychological: Appears slightly anxious Const Vital Signs: 06/21/20 20:07 06/21/20 20:10 06/21/20 20:22 Temperature 97.9 F 97.9 F Temperature Source Temporal Temporal Pulse Rate 112 H 112 H Respiratory Rate 36 H 24 H Respiratory Effort Short of Breath Respiratory Depth Deep Respiratory Pattern Tachypnea Blood Pressure 148/99 H 148/99 H Blood Pressure Mean 115 115 Pulse Ox 90 90 Oxygen Delivery Method Nasal Cannula Nasal Cannula Venturi Mask Oxygen Flow Rate (L/min) 4 4 Fraction of Inspired Oxygen (FIO2) 35 06/21/20 20:47 06/21/20 20:48 06/21/20 21:06 Temperature Temperature Source Pulse Rate 112 H 110 H Respiratory Rate 20 H 23 H Respiratory Effort Respiratory Depth Respiratory Pattern Blood Pressure 139/84 H Blood Pressure Mean 102 Pulse Ox 95 95 95 Oxygen Delivery Method Airvo Airvo Oxygen Flow Rate (L/min) 45 Fraction of Inspired Oxygen (FIO2) 46 46 06/21/20 21:10 06/21/20 22:12 Temperature 98 F 98.0 F Temperature Source Temporal Temporal Pulse Rate 110 H 110 H Respiratory Rate 23 H 26 H Respiratory Effort Respiratory Depth Respiratory Pattern Blood Pressure 139/84 H 131/83 H Blood Pressure Mean 102 99 Pulse Ox 95 92 Oxygen Delivery Method Airvo Airvo Oxygen Flow Rate (L/min) 45 13 Fraction of Inspired Oxygen (FIO2) 46 MDM MDM Lab Data Lab results narrative: Patient does not have a PE, he has granulomas on his lung however now he is significantly dependent on oxygen he is on OptiFlow. I will admit him to the hospital for further treatment. Labs: Laboratory Results - last 24 hr 06/21/20 06/21/20 06/21/20 20:13 20:13 20:13 WBC 6.7 RBC 4.60 Hgb 14.2 Hct 43.9 MCV 95.4 H MCH 30.9 MCHC 32.3 RDW Std Deviation 50.1 H RDW Coeff of Jamar 14.4 Plt Count 131 L MPV 10.3 Immature Gran % (Auto) 0.300 Neut % (Auto) 65.2 Lymph % (Auto) 22.9 [place] % (Auto) 8.5 Eos % (Auto) 2.4 Baso % (Auto) 0.7 Absolute Neuts (auto) 4.4 Absolute Lymphs (auto) 1.54 Nucleated RBC % 0 Sodium 140 Potassium 3.9 Chloride 106 Carbon Dioxide 27.0 Anion Gap 7 BUN 34 H Creatinine 1.60 H Estim Creat Clear Calc 39.29 Est GFR (MDRD) Af Amer 54 L Est GFR (MDRD) Non-Af 45 L BUN/Creatinine Ratio 21.2 H Glucose 120 H Calcium 10.5 H Total Bilirubin 1.50 H AST 16 ALT 26 Alkaline Phosphatase 75 Troponin I < 0.015 B-Natriuretic Peptide 405.3 H Total Protein 7.4 Albumin 4.1 Globulin 3.3 Albumin/Globulin Ratio 1.2 ABG Data ABG results: ABG 06/21/20 20:28 Specimen Type ART Sample Site R Radial pH 7.48 H Bicarbonate Actual 23.3 Total CO2 24 Base Excess 0 O2 Saturation 88 L O2 % 35 ABG pCO2 31.1 L ABG pO2 49 L Michael Test Positive O2 Delivery Device Venti Mask Radiography Diagnostic Testing: Radiology Impression Chest X-Ray 06/21/20 20:41 IMPRESSION: 1. Small bilateral pleural effusions with scarring versus atelectasis at the right lung base. 2. Resolution of the peripheral consolidation seen in the right lung on the previous study. 3. No other major interval change. Electronically Signed: Yasmany Monsivais DO at 21:04 EDT Tel [phone], Service support , Chest CTA 06/21/20 21:29 IMPRESSION: 1. No demonstrated pulmonary embolism or arterial dissection. 2. Reidentification of several calcified granulomata of the right upper and lower lobes. 3. Diffuse cystic emphysematous changes are present. 4. Small bilateral pleural effusions are not significantly changed from the prior study. 5. Mild right lower lobe atelectasis is not significantly changed from the prior study. 6. Chronic interstitial scarring of the right middle lobe as well as post consolidative interstitial thickening and scarring here aspect of the right upper lobe. On the prior study consolidation was present in the posterior inferior aspect of the right upper lobe which has resolved. 7. No new infiltrate is seen in either lung. Electronically Signed: Spencer Reina MD at 22:56 EDT , Service support , Chest x-ray interpreted by myself and radiologist shows right sided chronic changes that have not changed from prior. EKG Initial EKG: Comments: Sinus tachycardia, some PVCs. Normal NC interval. QTC is elevated at 510. Nonspecific ST changes throughout. Interpreted by emergency doctor Discharge Plan Triage Chief Complaint: Shortness of Breath ED Provider: Valeriy Wilson Dx/Rx/DC Orders Clinical Impression: Acute respiratory distress Prescriptions: No Action tamsulosin 0.4 mg capsule 0.4 mg PO DAILY Qty: 30 RF: 0 isosorbide mononitrate 60 mg tablet extended release 24 hr 60 mg PO QPM RF: 0 albuterol sulfate 1 INHALER inhaler 1 - 2 puff INHALATION Q4H PRN PRN (Reason: Wheezing) RF: 0 sertraline 50 MG tablet 50 mg PO DAILY RF: 0 umeclidinium-vilanterol 1 EACH blister with device 1 ea IH DAILY RF: 0 acetaminophen 500 MG tablet 1,000 mg PO DAILY PRN PRN (Reason: Pain 1-10 Or Fever) RF: 0 sertraline 50 MG tablet 75 mg PO QHS RF: 0 Ibuprofen 200 MG tablet 400 mg PO DAILY PRN PRN (Reason: Pain 1-10 Or Fever) RF: 0 furosemide 40 MG tablet 40 mg PO DAILY RF: 0 pravastatin 40 MG tablet 40 mg PO DAILY RF: 0 omeprazole 20 MG capsule,delayed release(DR/EC) 20 mg PO BID RF: 0 losartan 50 mg tablet 25 mg PO BID Qty: 180 RF: 3 metoprolol tartrate 50 mg tablet 50 mg PO BID Qty: 180 RF: 3 amlodipine 10 mg tablet 5 mg PO DAILY Qty: 90 RF: 3 Eliquis 5 mg tablet 5 mg PO BID Qty: 180 RF: 3 Primary Care Provider: Rosana Douglass Referrals: Rosana Douglass DO [Primary Care Provider] - Disposition Disposition: Acute Care Hospital [facility]
[2020-06-21 20:36] LABS: Allen Test Positive; Base Excess 0 mmol/L (-2 to +2); Bicarbonate 23.3 mmol/L (22-26); Blood Gas Specimen Type ART; FI02 35; O2 Delivery Device Venti Mask; PO2 49 mmHG (75-100); SITE R Radial; SO2 88 % (95-99); Total Carbon Dioxide 24 mmol/L; pCO2 31.1 mmHg (35-45); pH 7.48 (7.35-7.45)
[2020-06-21 20:38] LABS: Absolute Lymphocyte Count 1.54 X10^3/uL (0.83-4.51); Absolute Neutrophil Count 4.4 X10^3/uL (2.0-7.7); Basophil# 0.05 X10^3/uL; Basophil% 0.7 % (0-1); Eosinophil# 0.16 X10^3/uL; Eosinophils% 2.4 % (0-5); Hematocrit 43.9 % (40-54); Hemoglobin 14.2 g/dL (13.0-16.5); Lymphocyte # 1.54 X10^3/ul (0.83-4.51); Lymphocyte % 22.9 % (19-41); Mean Corp Hgb Conc 32.3 g/dL (32-36); Mean Corpuscular Hgb 30.9 pg (27.0-32.0); Mean Corpuscular Volume 95.4 fL (80-94); Mean Platelet Vol. 10.3 fl (6.2-12.0); Monocyte# 0.57 X10^3/uL; Monocyte% 8.5 % (0-10); NRBC Flagged by Analyzer 0 % (0-5); Neutrophil # 4.39 X10^3/uL (2.7-7.7); Neutrophil % 65.2 % (47-70); Platelet Count 131 K/mm3 (150-450); RBC Distribution Width CV 14.4 % (11.6-14.6); RBC Distribution Width SD 50.1 fl (35.1-43.9); White Blood Count 6.7 K/mm3 (4.4-11.0)
--- NOTE | 2020-06-21 20:41 | RAD_ITS ---
STUDY: X-RAY CHEST REASON FOR EXAM: Male, 79 years old. Shortness of breath for one week. TECHNIQUE: Single AP portable view of the chest. COMPARISON: 12/23/2019. FINDINGS: The lungs are hyperexpanded. There is mild patchy density at the right lung base most marked at the lung base. The peripheral infiltrates seen on the previous study is no longer present. Question small bilateral pleural effusions. Sternal cerclage wires are present from a prior sternotomy. Heart is normal in size. Normal mediastinum and babak. Normal visualized pulmonary arteries. There is atherosclerotic calcification of the aortic arch with tortuosity. There are no osseous changes. There is no demonstrated abnormality of the visualized soft tissue structures of the upper abdomen. RAD/Chest 1 View (Portable) IMPRESSION: 1. Small bilateral pleural effusions with scarring versus atelectasis at the right lung base. 2. Resolution of the peripheral consolidation seen in the right lung on the previous study. 3. No other major interval change. Electronically Signed: Yasmany Monsivais DO at 21:04 EDT Tel [phone], Service support ,
[2020-06-21] MEDS: Ipratropium/Albuterol Sulfate 3 ML AMPUL.NEB INHALATION (20:46)
[2020-06-21 20:56] LABS: ALB/GLOB Ratio 1.2 RATIO (0.9-2.4); AST(SGOT) 16 U/L (15-37); Alanine Aminotransfer ALT/SGPT 26 U/L (16-61); Albumin, Serum 4.1 g/dL (3.2-5.0); Alkaline Phosphatase 75 U/L (45-117); Anion Gap 7 (5-15); BNP,B-Type NATRIURETIC PEPTIDE 405.3 pg/mL (0-100); BUN 34 mg/dL (7-18); BUN/Creat Ratio 21.2 RATIO (10-20); Calcium,Total 10.5 mg/dL (8.5-10.1); Chloride 106 mmol/L (98-107); EST Glomerular Filtration Rate 45 mL/min (>60); Est Glom Filt Rate - Afr Amer 54 mL/min (>60); Estimated Creatinine Clearance 39.29 ml/min; Globulin 3.3 g/dL (2.2-4.2); Glucose 120 mg/dL (74-106); Potassium 3.9 mmol/L (3.5-5.1); Protein, Total 7.4 g/dL (6.4-8.2); Sodium Level 140 mmol/L (136-145)
--- NOTE | 2020-06-21 21:29 | CT_ITS ---
STUDY: CTA CHEST REASON FOR EXAM: Male, 79 years old. pulmonary embolism RADIATION DOSAGE (If Supplied By Facility): CTDIvol = ( 15.94 ) mGy, DLP = ( 550.93 ) mGycm TECHNIQUE: The examination was performed with the intravenous administration of IV 100mL [id number]. Post-processing of the angiographic images was performed, with multiplanar reformation and 3D reconstruction. Individualized dose optimization techniques were used for this CT. COMPARISON: CT of the chest dated December 25, 2019 FINDINGS: Reidentification of several calcified granulomata of the right upper and lower lobes. Diffuse cystic emphysematous changes are present. Small bilateral pleural effusions are not significantly changed from the prior study. Mild right lower lobe atelectasis is not significantly changed from the prior study. Chronic interstitial scarring of the right middle lobe as well as post consolidative interstitial thickening and scarring here aspect of the right upper lobe. On the prior study consolidation was present in the posterior inferior aspect of the right upper lobe which has resolved. No new infiltrate is seen in either lung. Normal enhancement of the main pulmonary artery and right and left pulmonary arteries. Normal enhancement of the bilateral peripheral pulmonary arteries. There is no demonstrated pulmonary embolism. There is atherosclerotic calcification of the aortic arch with tortuosity. There is no demonstrated aortic dissection. Sternal cerclage wires and vascular clips are present from a prior sternotomy and coronary artery bypass graft procedure (CABG). Normal heart size. Small amount of subcarinal pleural fluid reidentified. Small hiatal hernia reidentified. Normal mediastinum. Normal hilar regions. Normal visualized trachea and bronchi. Normal chest wall structures. There are degenerative changes of thoracic spine. Normal visualized upper abdomen. CT/CTA Chest W/WO Contrast IMPRESSION: 1. No demonstrated pulmonary embolism or arterial dissection. 2. Reidentification of several calcified granulomata of the right upper and lower lobes. 3. Diffuse cystic emphysematous changes are present. 4. Small bilateral pleural effusions are not significantly changed from the prior study. 5. Mild right lower lobe atelectasis is not significantly changed from the prior study. 6. Chronic interstitial scarring of the right middle lobe as well as post consolidative interstitial thickening and scarring here aspect of the right upper lobe. On the prior study consolidation was present in the posterior inferior aspect of the right upper lobe which has resolved. 7. No new infiltrate is seen in either lung. Electronically Signed: Spencer Reina MD at 22:56 EDT , Service support ,
--- NOTE | 2020-06-21 23:31 | CPS ---
temp decreased to 31 degrees
[2020-06-22] VITALS (25 sets, daily range): BP systolic 117–153; BP diastolic 60–100; PULSE 89–118; RESP 16–24; TEMP 36.4–37.1; O2SAT 90–96; BMI 30.3
--- NOTE | 2020-06-22 00:05 | PCM.HP.STD ---
[facility] - General General Date of Admission: 06/21/20 Chief Complaint: sob [facility] Narrative RICKY BURNS, is a 79 M with a significant history of COPD; CAD S/P CABG; lung cancer status post lobectomy; secondary pulmonary arterial hypertension; atrial fibrillation; PE and DVT; who had a COVID-19 infection in November 2019 and spent about 2 weeks at a hospital presenting with a worsening shortness of breath. His symptoms started about 2 to 3 weeks ago. He had a A 6 minute 6 walk-in test about a week ago. He called his pulmonology and high flow oxygen was delivered to him. The high flow oxygen was delivered to him on the same day of presentation. Reportedly at home on 6 L his oxygen saturation was 70%. Paramedics placed him on nonrebreather mask which brought his oxygen to 88%. At the emergency department he was placed on airvo. CTA was negative for acute disease. FORMERLY [facility], [facility] Medical History A-fib Abnormal electrocardiogram Acute hypoxemic respiratory failure Aspiration pneumonia Atherosclerotic heart disease of redding coronary artery without angina pectoris Bladder cancer Carotid bruit CKD (chronic kidney disease) CKD (chronic kidney disease) stage 3, GFR 30-59 ml/min COPD (chronic obstructive pulmonary disease) Diverticulitis Essential (primary) hypertension GERD with esophagitis History of echocardiogram (12/10/15) History of nephrolithiasis History of stress test (08/21/16) HLD (hyperlipidemia) Hypoxia Kidney stone Lung cancer Pulmonary nodules Renal calculi Secondary pulmonary arterial hypertension Shortness of breath Home Medications albuterol sulfate 1 - 2 puff INHALATION Q4H PRN PRN 12/04/15 [History Last Taken 12/21/19] sertraline 50 mg PO DAILY 12/04/15 [History Last Taken 12/23/19] umeclidinium-vilanterol 1 ea IH DAILY 06/23/18 [History Last Taken 06/30/18 08:00] tamsulosin 0.4 mg capsule 0.4 mg PO DAILY #30 cap 09/16/18 [History Last Taken 12/22/19] isosorbide mononitrate 60 mg tablet,extended release 24 hr 60 mg PO QPM tab 10/21/19 [History Last Taken 12/22/19] Ibuprofen 400 mg PO DAILY PRN PRN 12/23/19 [History Last Taken 1 Week Ago ~12/16/19] acetaminophen 1,000 mg PO DAILY PRN PRN 12/23/19 [History Last Taken 12/23/19] furosemide 40 mg PO DAILY 12/23/19 [History Last Taken 12/22/19] omeprazole 20 mg PO BID 12/23/19 [History Last Taken 12/23/19] pravastatin 40 mg PO DAILY 12/23/19 [History Last Taken 12/22/19] sertraline 75 mg PO QHS 12/23/19 [History Last Taken 12/22/19] amlodipine 10 mg tablet 5 mg PO DAILY #90 tab 01/31/20 [Rx Last Taken Unknown] losartan 50 mg tablet 25 mg PO BID #180 tab 01/31/20 [Rx Last Taken Unknown] metoprolol tartrate 50 mg tablet 50 mg PO BID #180 tab 01/31/20 [Rx Last Taken Unknown] apixaban 5 mg tablet 5 mg PO BID #180 tab 02/27/20 [Rx Last Taken Unknown] Allergy/AdvReac Type Severity Reaction Status Date / Time No Known Allergies Allergy Verified 04/11/20 14:23 Family History Mother Cancer Lung CA Brother Diabetes Surgical History H/O coronary artery bypass surgery (07/20/03) History of left heart catheterization (LHC) (10/18/12) History of lithotripsy (02/2019) History of lobectomy of lung History of tonsillectomy History of transurethral resection of prostate (06/03/06) Social History Smoking Status: Former smoker alcohol intake: current alcohol intake frequency: a few times a week Alcohol type: wine substance use type: does not use caffeine: Yes Type: coffee Number of servings: 3 what type of physical activity do you participate in: none seatbelt use: always do you feel safe at home: Yes ROS Constitutional Constitutional: Denies anorexia or change in weight Eyes Eyes: Denies change in vision or double vision ENT HEENT: Denies dysphagia or hearing loss Cardiovascular Cardiovascular: Reports chest pain and edema Respiratory/Chest Respiratory/Chest: Reports dyspnea; Denies productive cough Gastrointestinal Gastrointestinal: Denies abdominal pain or coffee ground emesis Genitourinary Genitourinary: Denies burning urination or difficulty urinating Musculoskeletal Musculoskeletal: Denies arthralgias or back pain Neurologic Neurologic: Denies abnormal gait or abnormal speech Psychiatric Psychiatric: Reports anxiety; Denies depression Endocrine Endocrinology: Denies change in body appearance or cold intolerance Vital Signs Vital Signs Vital Signs: 06/21/20 20:07 06/21/20 20:10 06/21/20 20:22 Temperature 97.9 F 97.9 F Temperature Source Temporal Temporal Pulse Rate 112 H 112 H Respiratory Rate 36 H 24 H Respiratory Effort Short of Breath Respiratory Depth Deep Respiratory Pattern Tachypnea Blood Pressure 148/99 H 148/99 H Blood Pressure Mean 115 115 Pulse Ox 90 90 Oxygen Delivery Method Nasal Cannula Nasal Cannula Venturi Mask Oxygen Flow Rate (L/min) 4 4 Fraction of Inspired Oxygen (FIO2) 35 06/21/20 20:47 06/21/20 20:48 06/21/20 21:06 Temperature Temperature Source Pulse Rate 112 H 110 H Respiratory Rate 20 H 23 H Respiratory Effort Respiratory Depth Respiratory Pattern Blood Pressure 139/84 H Blood Pressure Mean 102 Pulse Ox 95 95 95 Oxygen Delivery Method Airvo Airvo Oxygen Flow Rate (L/min) 45 Fraction of Inspired Oxygen (FIO2) 46 46 06/21/20 21:10 06/21/20 22:00 06/21/20 22:12 Temperature 98 F 98.0 F 98.0 F Temperature Source Temporal Temporal Temporal Pulse Rate 110 H 110 H 110 H Respiratory Rate 23 H 26 H 26 H Respiratory Effort Respiratory Depth Respiratory Pattern Blood Pressure 139/84 H 131/83 H 131/83 H Blood Pressure Mean 102 99 99 Pulse Ox 95 92 92 Oxygen Delivery Method Airvo Airvo Airvo Oxygen Flow Rate (L/min) 45 13 13 Fraction of Inspired Oxygen (FIO2) 46 46 06/21/20 23:00 06/21/20 23:30 06/21/20 23:34 Temperature 98 F 98 F Temperature Source Temporal Temporal Pulse Rate 104 H 104 H 104 H Respiratory Rate 19 H 20 H 18 Respiratory Effort Respiratory Depth Respiratory Pattern Blood Pressure 123/79 H 123/79 H Blood Pressure Mean 93 93 Pulse Ox 95 94 94 Oxygen Delivery Method Airvo Airvo Oxygen Flow Rate (L/min) 14 14 Fraction of Inspired Oxygen (FIO2) 49 49 06/22/20 00:00 Temperature 98 F Temperature Source Temporal Pulse Rate 108 H Respiratory Rate 19 H Respiratory Effort Respiratory Depth Respiratory Pattern Blood Pressure 153/92 H Blood Pressure Mean 112 Pulse Ox 95 Oxygen Delivery Method Airvo Oxygen Flow Rate (L/min) 14 Fraction of Inspired Oxygen (FIO2) 49 Physical Exam Narrative Alert and oriented x3 Nontraumatic; normocephalic Lung diffuse mild scattered rales Heart sounds S1-S2. Heart sounds irregularly irregular. No murmur, gallop or rubs. Abdomen bowel sounds present soft, nontender nondistended Extremity with edema Lab / Micro Data Result Diagrams: 06/21/20 20:13 06/21/20 20:13 Labs: Laboratory Results - last 24 hr 06/21/20 06/21/20 06/21/20 20:13 20:13 20:13 WBC 6.7 RBC 4.60 Hgb 14.2 Hct 43.9 MCV 95.4 H MCH 30.9 MCHC 32.3 RDW Std Deviation 50.1 H RDW Coeff of Jamar 14.4 Plt Count 131 L MPV 10.3 Immature Gran % (Auto) 0.300 Neut % (Auto) 65.2 Lymph % (Auto) 22.9 [place] % (Auto) 8.5 Eos % (Auto) 2.4 Baso % (Auto) 0.7 Absolute Neuts (auto) 4.4 Absolute Lymphs (auto) 1.54 Nucleated RBC % 0 Sodium 140 Potassium 3.9 Chloride 106 Carbon Dioxide 27.0 Anion Gap 7 BUN 34 H Creatinine 1.60 H Estim Creat Clear Calc 39.29 Est GFR (MDRD) Af Amer 54 L Est GFR (MDRD) Non-Af 45 L BUN/Creatinine Ratio 21.2 H Glucose 120 H Calcium 10.5 H Total Bilirubin 1.50 H AST 16 ALT 26 Alkaline Phosphatase 75 Troponin I < 0.015 B-Natriuretic Peptide 405.3 H Total Protein 7.4 Albumin 4.1 Globulin 3.3 Albumin/Globulin Ratio 1.2 Micro: Microbiology 06/21/20 20:35 SARS-CoV-2 Antigen (Rapid) - Final Nasal Secretion ABG Data ABG results: ABG 06/21/20 20:28 Specimen Type ART Sample Site R Radial pH 7.48 H Bicarbonate Actual 23.3 Total CO2 24 Base Excess 0 O2 Saturation 88 L O2 % 35 ABG pCO2 31.1 L ABG pO2 49 L Michael Test Positive O2 Delivery Device Venti Mask Radiology Impression Chest X-Ray 06/21/20 20:41 IMPRESSION: 1. Small bilateral pleural effusions with scarring versus atelectasis at the right lung base. 2. Resolution of the peripheral consolidation seen in the right lung on the previous study. 3. No other major interval change. Electronically Signed: Yasmany Monsivais DO at 21:04 EDT Tel [phone], Service support , Chest CTA 06/21/20 21:29 IMPRESSION: 1. No demonstrated pulmonary embolism or arterial dissection. 2. Reidentification of several calcified granulomata of the right upper and lower lobes. 3. Diffuse cystic emphysematous changes are present. 4. Small bilateral pleural effusions are not significantly changed from the prior study. 5. Mild right lower lobe atelectasis is not significantly changed from the prior study. 6. Chronic interstitial scarring of the right middle lobe as well as post consolidative interstitial thickening and scarring here aspect of the right upper lobe. On the prior study consolidation was present in the posterior inferior aspect of the right upper lobe which has resolved. 7. No new infiltrate is seen in either lung. Electronically Signed: Spencer Reina MD at 22:56 EDT , Service support , Assessment & Plan Assessment/Plan (1) Acute respiratory failure with hypoxia: Status: Acute Code(s): J96.01 - Acute respiratory failure with hypoxia (2) DONYA (acute kidney injury): Status: Acute Code(s): N17.9 - Acute kidney failure, unspecified (3) Chest pain: Status: Acute Code(s): R07.9 - Chest pain, unspecified (4) Atrial fibrillation: Status: Chronic Code(s): I48.91 - Unspecified atrial fibrillation Qualifiers: Atrial fibrillation type: unspecified Qualified Code(s): I48.91 - Unspecified atrial fibrillation Plan: Placed on airvo at the emergency department and continued. Review of emergency department labs showed that rapid Covid antigen was negative. Will check comprehensive respiratory pathogen panel. DuoNeb [id number]. Home inhalers continued For his DONYA on CKD stage IIIa we will hold his home diuretics. Gentle IV hydration. Trend BMP. Review of records show the patient had a stress test on 04/23/2020. Pharmacological myocardia perfusion stress tests was normal. Holter monitor study on 04/23/20202020 was reviewed. The holter monitor noted shortness of breath which correlated with atrial fibrillation with RVR. 6 minutes walk test results was reviewed. 6-minute walk test was done on 04/20/2020. Per recommendation following the 6-minute walk test 3 L/min of pulse dose supplemental oxygen was recommended at rest and 6 L/min of continuous flow oxygen utilized with exertion. Pulmonary function test 0-20 221 showed irreversible mild large airways obstructive ventilatory defects with associated air trapping and disproportionate reduction in diffusing capacity. Aspirin 324 mg x 1 and aspirin 81 mg daily was ordered. However patient reported that per his bolter helper he should not take aspirin. Aspirin discontinued. Trend troponin. Eliquis continued. Creatinine on presentation was 1.6. Review of medication record shows baseline creatinine around 1.2 Multi Select Codes Visit Charges Visit Charges: 57472 Init Hosp L3
[2020-06-22] MEDS: 0.9% Normal Saline 1,000 ML 50 ML IV (00:56)
[2020-06-22] MEDS: 0.9% Saline Lock 10 ML Syringe IV ×3 (00:56→09:21)
[2020-06-22 01:22] LABS: Procalcitonin 0.04 ng/mL (0.00-0.09)
[2020-06-22] MEDS: Ipratropium/Albuterol Sulfate 3 ML AMPUL.NEB INHALATION ×4 (01:56→15:08)
[2020-06-22 04:46] LABS: Absolute Lymphocyte Count 1.18 X10^3/uL (0.83-4.51); Absolute Neutrophil Count 2.8 X10^3/uL (2.0-7.7); Basophil# 0.04 X10^3/uL; Basophil% 0.8 % (0-1); Eosinophil# 0.12 X10^3/uL; Eosinophils% 2.5 % (0-5); Hemoglobin 12.8 g/dL (13.0-16.5); Lymphocyte # 1.18 X10^3/ul (0.83-4.51); Lymphocyte % 24.6 % (19-41); Mean Corpuscular Hgb 30.6 pg (27.0-32.0); Mean Corpuscular Volume 95.7 fL (80-94); Mean Platelet Vol. 9.8 fl (6.2-12.0); Monocyte# 0.64 X10^3/uL; Monocyte% 13.4 % (0-10); NRBC Flagged by Analyzer 0 % (0-5); Neutrophil % 58.5 % (47-70); Platelet Count 107 K/mm3 (150-450); RBC Distribution Width CV 14.4 % (11.6-14.6); RBC Distribution Width SD 49.7 fl (35.1-43.9); Red Blood Count 4.18 M/mm3 (4.6-6.2); White Blood Count 4.8 K/mm3 (4.4-11.0)
[2020-06-22 05:14] LABS: Anion Gap 7 (5-15); BUN 26 mg/dL (7-18); BUN/Creat Ratio 22.2 RATIO (10-20); Calcium,Total 9.5 mg/dL (8.5-10.1); Chloride 110 mmol/L (98-107); Creatinine, Serum 1.17 mg/dL (0.70-1.30); EST Glomerular Filtration Rate 64 mL/min (>60); Est Glom Filt Rate - Afr Amer 77 mL/min (>60); Estimated Creatinine Clearance 53.73 ml/min; Glucose 86 mg/dL (74-106); Potassium 3.3 mmol/L (3.5-5.1); Sodium Level 142 mmol/L (136-145)
[2020-06-22] MEDS: Acetaminophen 325 MG Tablet 650 MG PO (05:30)
--- NOTE | 2020-06-22 07:41 | ECHOD_ITS ---
Reason For Study: PHTN Procedure This was a 2D Doppler, Color Flow transthoracic echocardiogram. The study was technically difficult. Patient sitting up due to SOB and back pain from shingles. Exam performed portable in patient room. Left Ventricle Normal LV size. Left ventricular systolic function is normal. The estimated ejection fraction is 55 %. Septal bounce. There is evidence of diastolic dysfunction. No regional wall motion abnormalities noted. Right Ventricle Moderately dilated right ventricle. Moderate global right ventricular systolic dysfunction. Atria The left atrium is mildly enlarged. The right atrium is mildly enlarged. No doppler evidence for ASD. Mitral Valve There is no mitral annular calcification. Normal mitral valve. Trivial mitral valve insufficiency. Tricuspid Valve Normal tricuspid valve. Moderate (2+) tricuspid valve insufficiency. Right ventricular systolic pressure estimated to be 63 mmHg. Aortic Valve Trisinus/trileaflet aortic valve. Mild diffuse aortic valve thickening. Mild focal aortic valve calcification. Pulmonic Valve The pulmonic valve is not well visualized. Mild (1+) pulmonic valve insufficiency. Great Vessels Normal sized aortic root. Pericardium/Pleural No pericardial effusion. Medication Known PFO. MMode/2D Measurements & Calculations LVIDd: 4.3 cm IVSd: 1.1 cm Ao root diam: 3.5 cm LVIDs: 2.7 cm LVPWd: 1.1 cm FS: 37.3 % LAV(MOD-sp4): 92.2 ml LA A4 area: 26.0 cm2 LA dimension(2D): 5.1 cm RA A4 area: 19.5 cm2 Doppler Measurements & Calculations MV E max dick: 87.8 cm/sec Lat Peak E' Dick: 18.9 cm/sec Med Peak E' Dick: 6.3 cm/sec E/E' lat: 4.6 E/E' med: 13.9 Ao V2 max: 144.0 cm/sec LV V1 max: 86.7 cm/sec PA V2 max: 89.6 cm/sec Ao max P.3 mmHg LV V1 max P.0 mmHg TR max dick: 354.8 cm/sec TR max P.5 mmHg ECHO/Echo Complete Interpretation Summary The study was technically difficult. Left ventricular systolic function is normal. The estimated ejection fraction is 55 %. Septal bounce. Moderately dilated right ventricle. Moderate global right ventricular systolic dysfunction. The left atrium is mildly enlarged. The right atrium is mildly enlarged. Trivial mitral valve insufficiency. Moderate (2+) tricuspid valve insufficiency. Mild diffuse aortic valve thickening. Mild focal aortic valve calcification. Mild (1+) pulmonic valve insufficiency. Right ventricular systolic pressure estimated to be 63 mmHg c/w pulmonary hyper tension. There is evidence of diastolic dysfunction. Ordering Physician: Dann Tee Referring Physician: Rosana Douglass M.D. Performed By: Emilie Forbes RDCS
[2020-06-22] MEDS: Metoprolol Tartrate 50 MG Tablet PO ×2 (09:20→21:49)
[2020-06-22] MEDS: Tamsulosin HCl 0.4 MG Capsule PO (09:20)
[2020-06-22] MEDS: APIXABAN 5 MG TABLET PO ×2 (09:20→21:48)
[2020-06-22] MEDS: Furosemide 40 MG/4 ML Vial IV (09:20)
[2020-06-22] MEDS: Pantoprazole Sodium 20 MG Tablet PO ×2 (09:21→21:49)
[2020-06-22] MEDS: amLODIPine 5 MG Tablet PO (09:21)
--- NOTE | 2020-06-22 14:38 | NURSING ---
This nurse spoke to Dr Douglass's office to clarify sertraline that pt takes. Dr. Douglass's office clarified two 50mg tablets daily. This nurse spoke to Dr Tee who gave order to give same.
--- NOTE | 2020-06-22 14:42 | CASEMGMT ---
SANDRA VASQUEZ Assessment: Face to Face with pt for initial transition planning/care coordination assessment. RN PEDRO introduced self and role at [facility], pt voices understanding and consents to assessment. Pt is A/O x4 and answers all questions appropriately at this time. Pt sitting up in bed with at bedside. Care providers, pharmacy, and demographics verified/updated. Admitting Dx: Acute on chronic resp failure PCP: Evonne Specialists: Aylin, cardio; Everett, pulm; Glenny, uro Preferred Pharmacy: [facility] Insurance: [email or web address] Prescription Benefit: yes LW/HPOA: Pt reports he has a LW and DPOA. His DPOA is his Estrella Vann. LNOK: , Estrella; Rossy Meraz Dtr Living Arrangements: Pt lives in a single story house with his with 3 steps to enter garage with rail. Pt denies concerns at home. Transportation: Pt drives self. Denies concerns with transportation. DME/HHC/SNF: Pt has O2 from [employer]. TC to [employer] to verify rx. Pt uses 3L at rest and 6 lites when walking. Pt denies having any previous HHC or SNF stay. Pt/ are interested in a nurse at home. Patient was provided a list of HHC providers including quality and resource use data and consistent with the patient?s preferred geographic region, medical needs, and insurance network. CM to check back on agency picked. Pt states no further concerns/needs. CM to follow. Advised pt to ask CM if any further question/concerns/needs arise, voices understanding. Pt Goal: Home with HHC Plan: Home with HHC and family support
[2020-06-22] MEDS: Sodium Chloride 0.65% 1 SPRAY SPRAY.BTL NASAL ×2 (16:23→19:46)
[2020-06-22] MEDS: Sertraline 100 MG Tablet PO (21:47)
[2020-06-22] MEDS: Isosorbide Mononitrate 60 MG Tablet PO (21:48)
[2020-06-22] MEDS: Pravastatin 40 MG Tablet PO (21:49)
--- NOTE | 2020-06-22 23:50 | CPS ---
Pt.'s FiO2 on AirVo increased to 63% at this time to help maintain pt.'s oxygen demands while sleeping
[2020-06-23] VITALS (20 sets, daily range): BP systolic 111–139; BP diastolic 64–89; PULSE 83–115; RESP 16–21; TEMP 36.3–36.6; O2SAT 91–96
[2020-06-23] MEDS: Acetaminophen 325 MG Tablet 650 MG PO ×3 (02:53→21:20)
[2020-06-23 06:59] LABS: Absolute Lymphocyte Count 1.05 X10^3/uL (0.83-4.51); Absolute Neutrophil Count 3.8 X10^3/uL (2.0-7.7); Basophil# 0.06 X10^3/uL; Eosinophil# 0.23 X10^3/uL; Eosinophils% 3.9 % (0-5); Hematocrit 40.8 % (40-54); Hemoglobin 12.9 g/dL (13.0-16.5); Lymphocyte # 1.05 X10^3/ul (0.83-4.51); Lymphocyte % 17.9 % (19-41); Mean Corp Hgb Conc 31.6 g/dL (32-36); Mean Corpuscular Hgb 30.6 pg (27.0-32.0); Mean Corpuscular Volume 96.9 fL (80-94); Mean Platelet Vol. 10.3 fl (6.2-12.0); Monocyte# 0.74 X10^3/uL; Monocyte% 12.6 % (0-10); NRBC Flagged by Analyzer 0 % (0-5); Neutrophil # 3.76 X10^3/uL (2.7-7.7); Neutrophil % 64.4 % (47-70); Platelet Count 125 K/mm3 (150-450); RBC Distribution Width CV 14.5 % (11.6-14.6); RBC Distribution Width SD 50.7 fl (35.1-43.9); Red Blood Count 4.21 M/mm3 (4.6-6.2); White Blood Count 5.9 K/mm3 (4.4-11.0)
[2020-06-23] MEDS: Ipratropium/Albuterol Sulfate 3 ML AMPUL.NEB INHALATION ×3 (07:20→18:59)
[2020-06-23 07:36] LABS: Anion Gap 8 (5-15); BUN 22 mg/dL (7-18); BUN/Creat Ratio 22.2 RATIO (10-20); Calcium,Total 10.2 mg/dL (8.5-10.1); Chloride 110 mmol/L (98-107); Creatinine, Serum 0.99 mg/dL (0.70-1.30); EST Glomerular Filtration Rate 78 mL/min (>60); Est Glom Filt Rate - Afr Amer 94 mL/min (>60); Glucose 87 mg/dL (74-106); Potassium 3.6 mmol/L (3.5-5.1); Sodium Level 142 mmol/L (136-145)
[2020-06-23] MEDS: Furosemide 40 MG/4 ML Vial IV (08:35)
[2020-06-23] MEDS: 0.9% Saline Lock 10 ML Syringe IV ×2 (08:36→22:39)
[2020-06-23] MEDS: Pantoprazole Sodium 20 MG Tablet PO ×2 (09:56→21:18)
[2020-06-23] MEDS: Metoprolol Tartrate 50 MG Tablet PO ×2 (09:57→21:18)
[2020-06-23] MEDS: APIXABAN 5 MG TABLET PO ×2 (09:57→21:18)
[2020-06-23] MEDS: amLODIPine 5 MG Tablet PO (10:01)
--- NOTE | 2020-06-23 16:00 | PN.HOSP_ITS ---
Subjective Subjective: todayBreathing easier, he L since November when he had Covid. breathing easier today, he is down to 6 L nasal cannula and off of Arava. His baseline is 3 L Objective Data Objective Data Vital Signs: Vital Signs Temp Pulse Resp BP Pulse Ox 97.8 F 112 H 19 H 116/70 91 06/23/20 10:11 06/23/20 15:31 06/23/20 10:22 06/23/20 10:11 06/23/20 12:51 Oxygen Flow Rate (L/min) 6 Oxygen Delivery Method Nasal Cannula Weight: 211 lb 6.773 oz Body Mass Index (BMI) 30.3 Intake & Output: Intake and Output for Last 24 Hours 06/22/20 06/23/20 06/24/20 03:59 03:59 03:59 Intake Total 1562.5 / 1562.5 600 / 600 Output Total 825 / 825 1450 / 1450 Balance 737.5 / 737.5 -850 / -850 Lab / Micro Data Result Diagrams: 06/23/20 05:43 06/23/20 05:43 Labs: Laboratory Results - last 24 hr 06/23/20 06/23/20 05:43 05:43 WBC 5.9 RBC 4.21 L Hgb 12.9 L Hct 40.8 MCV 96.9 H MCH 30.6 MCHC 31.6 L RDW Std Deviation 50.7 H RDW Coeff of Jamar 14.5 Plt Count 125 L MPV 10.3 Immature Gran % (Auto) 0.200 Neut % (Auto) 64.4 Lymph % (Auto) 17.9 L [place] % (Auto) 12.6 H Eos % (Auto) 3.9 Baso % (Auto) 1.0 Absolute Neuts (auto) 3.8 Absolute Lymphs (auto) 1.05 Nucleated RBC % 0 Sodium 142 Potassium 3.6 Chloride 110 H Carbon Dioxide 24.0 Anion Gap 8 BUN 22 H Creatinine 0.99 Estim Creat Clear Calc 63.50 Est GFR (MDRD) Af Amer 94 Est GFR (MDRD) Non-Af 78 BUN/Creatinine Ratio 22.2 H Glucose 87 Calcium 10.2 H Micro: Microbiology 06/21/20 17:15 Blood Culture (Wb) - Right Hand Bacteria Detection (PCR) - Preliminary 06/21/20 17:15 Blood Culture (Wb) - Right Hand Blood Culture - Preliminary Coag Negative Staph 06/22/20 01:45 Mucosa - Nose Respiratory Panel (PCR) - Final 06/21/20 20:35 Nasal Secretion SARS-CoV-2 Antigen (Rapid) - Final Physical Exam Const alert, oriented x3 and no apparent distress HEENT moist oral mucous membranes Head and Scalp: normocephalic Eyes PERRL, EOMs intact bilaterally and conjunctivae normal Neck no lymphadenopathy, supple and no JVD Resp normal respiratory effort and clear to auscultation bilaterally Auscultation: Negative for crackles, rales, rhonchi or wheezes Cardio regular rate, regular rhythm, S1 normal heart sound, S2 normal heart sound and no murmurs GI soft to palpation, non-tender and non-distended; Negative for hepatosplenomegaly Extremity no clubbing, cyanosis or edema Skin no rashes or lesions noted Neuro no focal motor deficits and no sensory deficits noted Psych affect normal Assessment & Plan Assessment/Plan (1) Acute respiratory failure with hypoxia: Status: Acute Code(s): J96.01 - Acute respiratory failure with hypoxia (2) Secondary pulmonary arterial hypertension: Status: Acute Code(s): I27.21 - Secondary pulmonary arterial hypertension (3) DONYA (acute kidney injury): Status: Resolved Code(s): N17.9 - Acute kidney failure, unspecified (4) Atrial fibrillation: Status: Chronic Code(s): I48.91 - Unspecified atrial fibrillation Qualifiers: Atrial fibrillation type: unspecified Qualified Code(s): I48.91 - Unspecified atrial fibrillation Plan: Continue with oxygen at 6 L wean as able Continue with Lasix 40 mg IV we will monitor renal function and give another do se tomorrow if necessary Echo with EF of 55% with moderately dilated right ventricle and RVSP of 63 mmHg DONYA has resolved No IV fluids Continue with Eliquis for his A. fib Visit Charges Inpatient E&M: 46858 Subs Hosp L2
[2020-06-23] MEDS: Potassium Chloride Oral Tablet 20 MEQ 40 MEQ PO (20:25)
[2020-06-23] MEDS: Tamsulosin HCl 0.4 MG Capsule PO (21:18)
[2020-06-23] MEDS: Isosorbide Mononitrate 60 MG Tablet PO (21:18)
[2020-06-23] MEDS: Pravastatin 40 MG Tablet PO (21:19)
[2020-06-23 22:45] LABS: Magnesium 2.1 mg/dL (1.6-2.6)
[2020-06-24] VITALS (12 sets, daily range): BP systolic 89–109; BP diastolic 53–74; PULSE 55–113; RESP 16–20; TEMP 36.1–36.6; O2SAT 86–98
--- NOTE | 2020-06-24 00:50 | PCM.PN.BLA ---
Progress Note Nurse reports that patient has back pain attributed to shingles and with no relieve from tylenol. OARRS reviewed; unremarkable. Will give patient x 1 dose of Neurotin 100mg
[2020-06-24] MEDS: Gabapentin 100 MG Capsule PO (01:03)
[2020-06-24 06:35] LABS: Anion Gap 6 (5-15); BUN 25 mg/dL (7-18); BUN/Creat Ratio 24.3 RATIO (10-20); Calcium,Total 9.6 mg/dL (8.5-10.1); Chloride 109 mmol/L (98-107); Creatinine, Serum 1.03 mg/dL (0.70-1.30); EST Glomerular Filtration Rate 74 mL/min (>60); Est Glom Filt Rate - Afr Amer 90 mL/min (>60); Estimated Creatinine Clearance 61.03 ml/min; Glucose 91 mg/dL (74-106); Magnesium 2.5 mg/dL (1.6-2.6); Potassium 4.1 mmol/L (3.5-5.1); Sodium Level 139 mmol/L (136-145)
[2020-06-24] MEDS: Ipratropium/Albuterol Sulfate 3 ML AMPUL.NEB INHALATION (06:55)
[2020-06-24] MEDS: Furosemide 40 MG/4 ML Vial IV (08:09)
[2020-06-24] MEDS: APIXABAN 5 MG TABLET PO (10:03)
[2020-06-24] MEDS: amLODIPine 5 MG Tablet PO (10:03)
[2020-06-24] MEDS: Pantoprazole Sodium 20 MG Tablet PO (10:03)
[2020-06-24] MEDS: Metoprolol Tartrate 50 MG Tablet PO (10:03)
[2020-06-24] MEDS: Sertraline 100 MG Tablet PO (11:21)
--- NOTE | 2020-06-24 13:56 | PCM.DC ---
Discharge Instructions Outpatient Procedure Reason For Visit: ACUTE ON CHRONIC RESPIRATORY FAILURE Diet Discharge Diet: Low fat / Low cholesterol and 6 Cup Fluid Restriction Activity Discharge Activity: Return to Normal Activity Dressing / Incision Call your doctor if you observe: Fever of 101 or Higher, Shortness of breath, Dizziness, Fainting spells, Swelling in the ankles, Chest pain and Increased palpitations (irregular heartbeat) Follow Up Care Test Results: Test results from this visit will be discussed in further detail at your follow-up appointment, if applicable. Discharge Plan Admission Admit Date/Time: 06/21/20 23:39 Attending Provider: Dann Tee Primary Care Provider: Rosana Douglass Instructions Patient Instructions: Limiting Fluids, Pulmonary Hypertension, ED Chest Pain, Noncardiac Additional Instructions / Restrictions: Follow-up with your PCP in 1 week to obtain a kidney function labs and monitor your blood pressure. Discharge Orders/Prescriptions Prescriptions: Continued tamsulosin 0.4 mg capsule 0.4 mg PO DAILY Qty: 30 RF: 0 isosorbide mononitrate 60 mg tablet extended release 24 hr 60 mg PO QPM RF: 0 albuterol sulfate 1 INHALER inhaler 1 - 2 puff INHALATION Q4H PRN PRN (Reason: Wheezing) RF: 0 sertraline 50 MG tablet 100 mg PO QHS RF: 0 umeclidinium-vilanterol 1 EACH blister with device 1 ea IH DAILY RF: 0 acetaminophen 500 MG tablet 1,000 mg PO DAILY PRN PRN (Reason: Pain 1-10 Or Fever) RF: 0 Ibuprofen 200 MG tablet 400 mg PO DAILY PRN PRN (Reason: Pain 1-10 Or Fever) RF: 0 furosemide 40 MG tablet 40 mg PO DAILY RF: 0 pravastatin 40 MG tablet 40 mg PO DAILY RF: 0 omeprazole 20 MG capsule,delayed release(DR/EC) 20 mg PO BID RF: 0 metoprolol tartrate 50 mg tablet 50 mg PO BID Qty: 180 RF: 3 amlodipine 10 mg tablet 5 mg PO DAILY Qty: 90 RF: 3 Eliquis 5 mg tablet 5 mg PO BID Qty: 180 RF: 3 Held losartan 50 mg tablet 25 mg PO BID Qty: 180 RF: 3 Hold Instructions: Resume on 06/29/20. Follow-up with your PCP for blood pressure check as well as her kidney function evaluation in order to resume your losartan. Discontinued sertraline 50 MG tablet 75 mg PO QHS RF: 0 Referrals: Rosana Douglass DO [Primary Care Provider] - Disposition Patient Disposition: Home Health Service
--- NOTE | 2020-06-24 14:28 | PCM.DC.SUM ---
Providers Date of Admission: 06/21/20 Primary Care Physician: Dr. Rosana Douglass DO Reason For Visit: ACUTE ON CHRONIC RESPIRATORY FAILURE Diagnosis Discharge Diagnosis (1) Acute respiratory failure with hypoxia: Status: Acute Code(s): J96.01 - Acute respiratory failure with hypoxia (2) Secondary pulmonary arterial hypertension: Status: Acute Code(s): I27.21 - Secondary pulmonary arterial hypertension (3) DONYA (acute kidney injury): Status: Resolved Code(s): N17.9 - Acute kidney failure, unspecified (4) Atrial fibrillation: Status: Chronic Code(s): I48.91 - Unspecified atrial fibrillation Qualifiers: Atrial fibrillation type: unspecified Qualified Code(s): I48.91 - Unspecified atrial fibrillation Plan: Give another dose of IV Lasix today and he is down to 2 to 3 L nasal cannula at rest and about 6 L with ambulation. I did discuss with him that when he sleeps at night that he should wear 5 to 6 L nasal cannula. Discussed fluid restrictions again with him. 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 Medications at Discharge Home Medications albuterol sulfate 1 - 2 puff INHALATION Q4H PRN PRN 12/04/15 sertraline 100 mg PO QHS 12/04/15 umeclidinium-vilanterol 1 ea IH DAILY 06/23/18 tamsulosin 0.4 mg capsule 0.4 mg PO DAILY #30 cap 09/16/18 isosorbide mononitrate 60 mg tablet,extended release 24 hr 60 mg PO QPM tab 10/21/19 Ibuprofen 400 mg PO DAILY PRN PRN 12/23/19 acetaminophen 1,000 mg PO DAILY PRN PRN 12/23/19 furosemide 40 mg PO DAILY 12/23/19 omeprazole 20 mg PO BID 12/23/19 pravastatin 40 mg PO DAILY 12/23/19 amlodipine 10 mg tablet 5 mg PO DAILY #90 tab 01/31/20 losartan 50 mg tablet 25 mg PO BID #180 tab 01/31/20 metoprolol tartrate 50 mg tablet 50 mg PO BID #180 tab 01/31/20 apixaban 5 mg tablet 5 mg PO BID #180 tab 02/27/20 Hospital Course Operations None Procedures 2-D Echocardiogram Summary of Care Provided Minutes Spent on Discharge: 35 Hospital Course: HPI Narrative RICKY BURNS, is a 79 M with a significant history of COPD; CAD S/P CABG; lung cancer status post lobectomy; secondary pulmonary arterial hypertension; atrial fibrillation; PE and DVT; who had a COVID-19 infection in November 2019 and spent about 2 weeks at a hospital presenting with a worsening shortness of breath. His symptoms started about 2 to 3 weeks ago. He had a A 6 minute 6 walk-in test about a week ago. He called his pulmonology and high flow oxygen was delivered to him. The high flow oxygen was delivered to him on the same day of presentation. Reportedly at home on 6 L his oxygen saturation was 70%. Paramedics placed him on nonrebreather mask which brought his oxygen to 88%. At the emergency department he was placed on airvo. CTA was negative for acute disease. Hospital course: He did well with very well during his stay, his DONYA resolved and he was started on IV Lasix daily. His kidney function today on discharge about 1.03. He is down to 2 to 3 L nasal cannula at rest. I discussed with him the need to follow-up with his PCP in 3 to 5 days to monitor his renal function to continue with his home Lasix regimen. I also discussed with him the 1500 cc fluid restriction. We also discussed daily weights and that if he gains 3 to 5 pounds in 2 to 3days that it is okay to take an extra Lasix and call his doctor. Based on the echo, he does have moderate to severe pulmonary hypertension. His blood pressures are on the low side with the continued Lasix therefore his losartan was held pending outpatient evaluation. His other blood pressure medications were continued and he was continued on his Eliquis. He will be discharged home with home health, I did discuss with him and his the risk and benefits of discharge today and he elected to go home. Physical Exam Narrative Const alert, oriented x3 and no apparent distress HEENT moist oral mucous membranes Eyes PERRL, EOMs intact bilaterally and conjunctivae normal Neck no lymphadenopathy, supple and no JVD Resp normal respiratory effort and clear to auscultation bilaterally Auscultation: Negative for crackles, rales, rhonchi or wheezes Cardio regular rate, regular rhythm, S1 normal heart sound, S2 normal heart sound and no murmurs GI soft to palpation, non-tender and non-distended; Negative for hepatosplenomegaly Extremity no clubbing, cyanosis or edema Skin no rashes or lesions noted Neuro no focal motor deficits and no sensory deficits noted Psych affect normal ABG / Lab / Microbiology Data Result Diagrams: 06/23/20 05:43 06/24/20 05:23 Laboratory: Laboratory Results - last 24 hr 06/23/20 06/24/20 22:18 05:23 Sodium 139 Potassium 4.1 Chloride 109 H Carbon Dioxide 24.0 Anion Gap 6 BUN 25 H Creatinine 1.03 Estim Creat Clear Calc 61.03 Est GFR (MDRD) Af Amer 90 Est GFR (MDRD) Non-Af 74 BUN/Creatinine Ratio 24.3 H Glucose 91 Calcium 9.6 Magnesium 2.1 2.5 Microbiology: Microbiology 06/21/20 20:13 Blood Culture - Preliminary Blood Culture (Wb) #2 - Anticubital Right No growth in 48 hours. 06/21/20 17:15 Bacteria Detection (PCR) - Final Blood Culture (Wb) - Right Hand Coag Negative Staph Blood Culture - Preliminary Coag Negative Staph Microbiology 06/21/20 20:13 Blood Culture (Wb) #2 - Anticubital Right Blood Culture - Preliminary No growth in 48 hours. 06/21/20 17:15 Blood Culture (Wb) - Right Hand Bacteria Detection (PCR) - Final Coag Negative Staph 06/21/20 17:15 Blood Culture (Wb) - Right Hand Blood Culture - Preliminary Coag Negative Staph 06/22/20 01:45 Mucosa - Nose Respiratory Panel (PCR) - Final 06/21/20 20:35 Nasal Secretion SARS-CoV-2 Antigen (Rapid) - Final D/C Instructions Discharge Diet: Low fat / Low cholesterol and 6 Cup Fluid Restriction Discharge Activity: Return to Normal Activity Call your doctor if you observe: Fever of 101 or Higher, Shortness of breath, Dizziness, Fainting spells, Swelling in the ankles, Chest pain and Increased palpitations (irregular heartbeat) Meaningful Use Info Meaningful Use Diagnoses (Choose all that apply): None applicable Discharge Plan Admission Admit Date/Time: 06/21/20 23:39 Attending Provider: Dann Tee Primary Care Provider: Rosana Douglass Instructions Patient Instructions: Limiting Fluids, Pulmonary Hypertension, ED Chest Pain, Noncardiac Additional Instructions / Restrictions: Follow-up with your PCP in 1 week to obtain a kidney function labs and monitor your blood pressure. Discharge Orders/Prescriptions Prescriptions: Continued tamsulosin 0.4 mg capsule 0.4 mg PO DAILY Qty: 30 RF: 0 isosorbide mononitrate 60 mg tablet extended release 24 hr 60 mg PO QPM RF: 0 albuterol sulfate 1 INHALER inhaler 1 - 2 puff INHALATION Q4H PRN PRN (Reason: Wheezing) RF: 0 sertraline 50 MG tablet 100 mg PO QHS RF: 0 umeclidinium-vilanterol 1 EACH blister with device 1 ea IH DAILY RF: 0 acetaminophen 500 MG tablet 1,000 mg PO DAILY PRN PRN (Reason: Pain 1-10 Or Fever) RF: 0 Ibuprofen 200 MG tablet 400 mg PO DAILY PRN PRN (Reason: Pain 1-10 Or Fever) RF: 0 furosemide 40 MG tablet 40 mg PO DAILY RF: 0 pravastatin 40 MG tablet 40 mg PO DAILY RF: 0 omeprazole 20 MG capsule,delayed release(DR/EC) 20 mg PO BID RF: 0 metoprolol tartrate 50 mg tablet 50 mg PO BID Qty: 180 RF: 3 amlodipine 10 mg tablet 5 mg PO DAILY Qty: 90 RF: 3 Eliquis 5 mg tablet 5 mg PO BID Qty: 180 RF: 3 Held losartan 50 mg tablet 25 mg PO BID Qty: 180 RF: 3 Hold Instructions: Resume on 06/29/20. Follow-up with your PCP for blood pressure check as well as her kidney function evaluation in order to resume your losartan. Discontinued sertraline 50 MG tablet 75 mg PO QHS RF: 0 Referrals: Rosana Douglass DO [Primary Care Provider] - Disposition Patient Disposition: Home Health Service Visit Charges Inpatient E&M: 77068 Disch Hosp
--- NOTE | 2020-06-25 08:44 | CASEMGMT ---
SANDRA VASQUEZ notified Jia monterroso at [facility] that pt was dc'd yesterday. She states HH will go out tomorrow.
--- NOTE | 2020-06-25 14:31 | CASEMGMT ---
SANDRA VASQUEZ Discharge Follow Up Phone Call: DEMETRICE: 12 Strata: 3 Call Date: 06/25/20 Discharge Date: 06/24/20 Time of Call:[id number] Duration: 3 min Admitting Dx: a on c respiratory failure SANDRA VASQUEZ completed follow up phone call after recent hospitalization. Spoke with pt as pt was in the bath tub. She states pt is doing well. This afternoon pt really started to feel better. C has been in touch and they will be out tomorrow to see him. Denied questions regarding medications or dc instructions.
== END 2020-06-24 15:32 | disposition home health service (06) | DRG 189 ==
LOC: ED 23:31 → PCU 23:47
PROVIDERS: Admitting Provider Hospitalist; Emergency Provider Emergency Medicine; PCP Internal Medicine; Visit Provider Family Medicine
DX: J96.01 Acute respiratory failure with hypoxia (principal); N17.9 Acute kidney failure, unspecified; I48.20 Chronic atrial fibrillation, unspecified; I27.21 Secondary pulmonary arterial hypertension; I12.9 Hypertensive chronic kidney disease with stage 1 through stage 4 chronic kidney disease, or unspecified chronic kidney disease; N18.31 Chronic kidney disease, stage 3a; B02.9 Zoster without complications; Z99.81 Dependence on supplemental oxygen; Z86.16 Personal history of COVID-19; Z87.891 Personal history of nicotine dependence
CPT/HCPCS: 36415; 36600; 71045; 71275; 80048; 80053; 82803; 83735; 83880; 84145; 84484; 85025; 87040; 87149; 87426; 87633; 93005; 93306; 94640; 94660; 97110; 97162; 97166; 99285; J7030; Q9967; A4216; J1940

== ENCOUNTER → 2020-07-03 10:30 | Outpatient (CLI) | payer MEDICARE, OTHER, SELFPAY ==
[2020-06-22 00:39] VITALS: BMI 30.3
[2020-07-03 11:30] LABS: BNP,B-Type NATRIURETIC PEPTIDE 258.7 pg/mL (0-100)
== END ==
PROVIDERS: PCP Internal Medicine; Referring Provider Internal Medicine Pulmonary Disease; Visit Provider Internal Medicine Pulmonary Disease
DX: I27.81 Cor pulmonale (chronic) (principal); R06.02 Shortness of breath
CPT/HCPCS: 36415; 83880

== ENCOUNTER → 2020-08-08 09:43 | Outpatient (CLI) | payer MEDICARE, OTHER, SELFPAY ==
[2020-06-22 00:39] VITALS: BMI 30.3
[2020-08-08 10:45] LABS: Anion Gap 5 (5-15); BUN 39 mg/dL (7-18); BUN/Creat Ratio 21.9 RATIO (10-20); Calcium,Total 10.4 mg/dL (8.5-10.1); Chloride 105 mmol/L (98-107); Creatinine, Serum 1.78 mg/dL (0.70-1.30); EST Glomerular Filtration Rate 39 mL/min (>60); Est Glom Filt Rate - Afr Amer 48 mL/min (>60); Glucose 94 mg/dL (74-106); Potassium 3.7 mmol/L (3.5-5.1); Sodium Level 142 mmol/L (136-145)
== END ==
PROVIDERS: PCP Internal Medicine; Referring Provider Internal Medicine Cardiovascular Disease; Visit Provider Internal Medicine Cardiovascular Disease
DX: I50.9 Heart failure, unspecified (principal)
CPT/HCPCS: 36415; 80048

== ENCOUNTER → 2020-09-21 11:12 | Outpatient (CLI) | payer MEDICARE, OTHER, SELFPAY ==
[2020-09-21 10:29] VITALS: BMI 30.3
[2020-09-21 12:54] LABS: Anion Gap 4 (5-15); BUN 41 mg/dL (7-18); BUN/Creat Ratio 21.8 RATIO (10-20); Calcium,Total 10.4 mg/dL (8.5-10.1); Chloride 102 mmol/L (98-107); Creatinine, Serum 1.88 mg/dL (0.70-1.30); EST Glomerular Filtration Rate 37 mL/min (>60); Est Glom Filt Rate - Afr Amer 45 mL/min (>60); Glucose 92 mg/dL (74-106); Potassium 4.7 mmol/L (3.5-5.1); Sodium Level 138 mmol/L (136-145)
== END ==
PROVIDERS: PCP Internal Medicine; Referring Provider Nurse Practitioner Family; Visit Provider Nurse Practitioner Family
DX: Z79.899 Other long term (current) drug therapy (principal)
CPT/HCPCS: 36415; 80048

== ENCOUNTER → 2020-10-09 09:28 | Outpatient (CLI) | payer MEDICARE, OTHER, SELFPAY ==
[2020-09-21 10:29] VITALS: BMI 30.3
--- NOTE | 2020-10-09 09:33 | PR.ITP_ITS ---
General Information - General Information Admitting Diagnosis: Centilobular Emphysema, COPD severe complicated by modera te to sever pulmonary hypertension and chronic hypoxemic respiratory failure following Acute COVID-19 pneumonia. Oxygen: 3 liters at resting/no activity - PFT FEV1:: 2.11 - 70% predicted FVC:: 3.90 - 93% predicted FEV1/FVC%:: 54 - 04/16/2020 - Education/Goals Barriers to Learning: Vision Impairment Individual Counseling: Initial Assessment: Dyspnea control techniques at rest, activity, and ADLs, O2, Rx, system, safety, Home exercise plan & guidelines Patient Goals: Breathe better: Initial Assessment, Increase endurance/stamina: Initial Assessment, Return to recreation/hobby: Initial Assessment, Control panic/anxiety: Initial Assessment, Return to work: Initial Assessment, Improve diet and nutrition: Initial Assessment, Symptom management: Initial Assessment, Take medications correctly: Initial Assessment, Improve weight: Initial Assessment Exercise - Initial Assessment - Visit Date of Eval: 10/09/20 - Pre-pulmonary rehab evaluation - Problem/Goals Problems: Deconditioning, No regular exercise, Knowledge deficit exercise guidelines Goals:: Aerobic exercise 30-60 mins x 9 weeks, AL: 2-3/wk - Physician Prescribed Exercise Modalities: Treadmill, Airdyne, NuStep Frequency (days/week): 3 Duration (Minutes):: 30-45 Intensity: 60-80% of age predicted maximum heart rate reserve METs - Progression: 0.5-1.0 MET, RPE 11-14 WEEK: 2.0 Target Heart Rate:: 92-120 - Plan Plan and Plan to Review:: Benefits of exercise, Core components of exercise, How to measure dyspnea level, How to monitor dyspnea level, Exercise intensity, Exercise safety guideline, Home exercise guidelines, Dexter: 3-4/11-13 Disease Management - Initial - Problems/Goals-Hypoxemia Hypoxemia Problems:: Hypoxemia Hypoxemia Goals:: Hypoxemia managed, Port system, Using O2 as Rx's safely - Problems/Goals-Medications Medication Goals: Correct technique/timing & care of MDI, DPI, nebulizer, and spacer. - Initial Assessment Medications: Yes MDI, Yes Spacer Patient Reports:: No cough - very minimal, Non-productive cough - Plans Hypoxemia Plan:: Monitor SpO2 rest & with exercise, Train appropriate O2 use at rest, Train appropriate O2 use with exercise, Train O2 safety & systems Reviewed prescribed medications:: Purpose, Schedule, Side effects, Importance of compliance Instruct correct technique/timing & care:: MDI, Return demo use of inhaler Bronchial Hygiene Plan: Controlled cough, Vibratory PEP device, Hydration, Hand hygiene, When to call MD Psychosocial - Initial Assess - Problems/Goals Problems: Impaired Q.O.L. Psychosocial Goals: Improved psychosocial coping skills., Verbalizes coping strategies., Adequate treatment of depression., Improved Q.O.L. - Psychosocial Test Depression:: Impaired QOL Referred to MD for counseling:: No - Plan Reviewed screening results: Yes Instructions given regarding:: Benefits of exercise, Relaxation techniques, Training in coping strategies Tobacco - Initial Assessment - Stage of Change Stages of Change:: Action - Learning Barriers Learning Barriers: Vision, Ready to Learn - Family Support Do you have family support?: Yes - Tobacco Use Tobacco Use: Non-smoker Tobacco - 30-Day Assessment Tobacco - 60-Day Assessment Tobacco - 90-Day Assessment Tobacco - Final Assessment Nutrition/Wt Mgmt - Initial - Problems/Goals Goals: BMI 21-25, Wt Loss 1-2 lbs per week - Weight Management Knowledge Deficit Management of:: Role of exercise in weight control Admit Height:: 5 ft 10 in Admit Weight:: 171 lb Admit BMI:: 24.5 - Diabetes Diabetes:: No - Intervention Referral to dietitian:: No Referral to Diabetic Clinic:: No Will attend diet classes:: Yes Patient Health Questionnaire Initial Assessment 1. Little interest or pleasure in doing things: Not at all 2. Feeling down, depressed, or hopeless: Not at all 3. Trouble falling or staying asleep, or sleeping too much: Not at all 4. Feeling tired or having little energy: More than half the days 5. Poor appetite or overeating: More than half the days 6. Feeling bad about yourself -- or that you are a failure or have let yourself or your family down: More than half the days 7. Trouble concentrating on things, such as reading the newspaper or watching television: More than half the days 8. Moving or speaking so slowly that other people could have noticed. Or the opposite - being so fidgety or restless that you have been moving around a lot more than usual: More than half the days 9. Thoughts that you would be better off , or of hurting yourself in some way: Not at all How difficult have these problems made it for you to do your work, take care of things at home, or get along with other people?: Not difficult at all Total Score: 10 COPD Knowledge Test Initial COPD is a lung disease that:: Makes it hard to breathe & gets worse over time In the [place] the term COPD describes 2 main lung conditions:: Emphysema & pulmonary hypertension The most common lung irritant that causes COPD is:: Cigarette smoke Common signs and symptoms of COPD include:: An ongoing cough/cough that produces a large amount of mucus, & SOB If you have COPD, what steps can you take?: Quit smoking & avoid secondhand smoke Swelling of the ankles is common in COPD:: False Fatigue [tiredness] is common in COPD:: False Wheezing is common in COPD:: False Crushing chest pain is common in COPD:: False Rapid weight loss is common in COPD:: False Breathlessness is a normal response to exercise: True Exercise should be avoided if it makes you short of breath: False All bronchodilators act within 10 minutes: True A spacer device increases the medication to the lungs: True Annual flu vaccine is recommended for pts w/lung disease: True COPD Knowledge Test Total Score:: 10 COPD Assessment Test [CAT] - Questions Never cough = 0, Cough all the time = 5: 2 No phlegm = 0, Chest full of phlegm = 5: 2 No chest tightness = 0, Chest very tight = 5: 1 No breathless w/exertion = 0, Very breathless w/exertion = 5: 3 No limitations w/activity = 0, Very limited w/activity = 5: 3 Confident leaving home = 0, Not at all confident = 5: 1 Sleep soundly = 0, Don't sleep soundly = 5: 1 Lots of energy = 0, No energy at all = 5: 3 Total CAT score:: 16 Self-Efficacy Initial Assessment We would like to know how confident you are in doing certain activities. Please select your confidence level for:: Select your confidence level for the following using the scale 1-10 where 1 is not at all confident and 10 is totally confident. Your score is the average of all 6 responses. Fatigue: How confident are you that you can keep the fatigue caused by your disease from interfering with the things you want to do? Select Number: 8 Physical Discomfort or Pain: How confident are you that you can keep the physical discomfort or pain of your disease from interfering with the things you want to do? Select Number: 8 Emotional Distress: How confident are you that you can keep the emotional distress caused by your disease from interfering with the things you want to do? Select Number: 6 Other Symptoms or Health Problems: How confident are you that you can keep other symptoms or health problems from interfering with the things you want to do? Select Number: 6 Different Tasks and Activities: How confident are you that you can do the different tasks and activities needed to manage your health condition so as to reduce your need to see a doctor? Select Number: 6 Medication: How confident are you that you can do things other than just taking medication to reduce how much your illness affects your everyday life? Select Number: 7 Total Score:: 6 Nutrition Survey - Nutrition Survey Initial Have you lost >10 lbs over the past 2 months without trying?: No Are you following a special diet at home for diabetes, low fat, or low salt?: Yes Are you interested in meeting with a dietitian for help understanding your diet?: No Do you eat less than 3 meals a day?: Yes Do you eat fatty meats (pastor, sausage, ribs, etc), fried foods, desserts, large amounts of salad dressings, margarine, butter, or cheese most days?: No Do you have food allergies? [Enter types in comment field]: No Do you eat in restaurants more than 3 times a week?: No Do you season food with salt, seasoning salt, or garlic salt?: No Do you used canned, boxed, frozen meals, or soups, seasoning packets?: Yes Total Score:: 3
--- NOTE | 2020-10-09 09:33 | PR.HP_ITS ---
History of Present Illness Arrival date:: 10/09/20 Arrival time:: 09:39 Date of Referral:: 09/21/20 Date of Evaluation: 10/09/20 Referring Physician: Kervin Briones ([facility]) Primary Diagnosis: Centilobular Emphysema, History of Present Illness: Centilobular emphysema, COPD severe, complicated bu moderate to severe pulmonary hypertension and chronic hypoxemic respiratory failure following acute COVID-19 pneumonia. Patient was diagnosed with COVID-19 exposure in November 2019 wiht associated sepsis abd pneumonia. During hospitalization he was diagnosed with atrial fibrillation. Since that time he has had ongoing pulmonary issues requiring chronic oxygen therapy. He also has a previous cardiac history; HFpEF heart failure with preserved ejection fraction 55%. Previous CABG 07/20/2003. m[facility] Breathless Scale: When is the patient short of breath? Y/N Grade: Description of Breathlessness: 0 I only get breathless with strenuous exercise. 1 I get short of breath when hurrying on level ground or walking up a slight hill. 2 On level ground, I walk slower than people of the same age because of breathless, or have to stop for breath when walking at my own pace. 3 I stop for breath after walking 100 yards or after a few minutes on level ground. 4 I am too breathless to leave the house or I am breathless when dressing. - Secretions Thick:: No Thin:: No Cough:: Yes AM: No PM: No Night Time: No A.T.C.: Yes Hx of Sleep Apnea: No Do you snore loudly (louder than talking or can be heard through closed doors)?: No Do you often feel tired/ fatigued/ sleepy during daytime?: Yes Has anyone observed you stop breathing during sleep?: No History of Hypertension (for STOP score): Yes STOP Results: Positive Home Medications: Home Medications albuterol sulfate 1 - 2 puff INHALATION Q4H PRN PRN 12/04/15 sertraline 100 mg PO QHS 12/04/15 umeclidinium-vilanterol 1 ea IH DAILY 06/23/18 tamsulosin 0.4 mg capsule 0.4 mg PO DAILY #30 cap 09/16/18 Ibuprofen 400 mg PO DAILY PRN PRN 12/23/19 acetaminophen 1,000 mg PO DAILY PRN PRN 12/23/19 pravastatin 40 mg PO DAILY 12/23/19 amlodipine 10 mg tablet 5 mg PO DAILY #90 tab 01/31/20 metoprolol tartrate 50 mg tablet 50 mg PO BID #180 tab 01/31/20 apixaban 5 mg tablet 5 mg PO BID #180 tab 02/27/20 magnesium oxide 400 mg PO DAILY #90 tab 07/20/20 furosemide 40 mg tablet 40 mg PO BID #180 tab 08/31/20 isosorbide mononitrate 60 mg tablet,extended release 24 hr 30 mg PO QPM tab 09/28/20 spironolactone 25 mg tablet 25 mg PO DAILY #30 tab 09/28/20 omeprazole 20 mg capsule,delayed release 20 mg PO BID #90 cap 10/01/20 COVID-19 vacc,mRNA([employer])(PF) [Pfizer COVID-19 Vaccine (EUA)] ml IM 10/09/20 Allergies/Adverse Reactions: Allergies No Known Allergies Allergy (Verified 09/21/20 10:26) Medical Utilization Do you use a peak flow meter at home?: No Do you use a spacer device with your inhalers?: No Number of hospital visits in the last year?: 2 Number of emergency room visits in the last year?: 2 Do you see your physician on a regular schedule?: Yes How often?: PCP Anali ANGUIANO 3 mo; Aylin annually. Advanced Directives - Advanced Directives Power of [employer]: Yes Living Will: Yes Advance Directives Information Provided: No Advance Directives on File: Yes - Should be on his EHR. DNR Order?:: No - MOLST See MOLST form: No Past Medical History - Covid-19 Screening Fever: No Unexplained muscle aches: No Current respiratory symptoms: No Upper respiratory infections symptoms: No Gastro-intestinal symptoms: Yes Yyf-Ywiy-Dqbtti symptoms: Yes - Seasonal allergies Has tested positive for COVID-19 in last 30 days: No Date of testin06/07/20 - PFizer COVID-19 vaccine Had contact w/person w/symptoms or Covid-19 (+) last 14 days: No Has High Risk Exposures ID'd by Health dept/Inf Control team: Yes 65 years or older:: Yes Lives in Assisted Living facility:: No Has a chronic lung disease or moderate to severe asthma:: Yes Has a serious heart condition:: Yes Immunocompromised:: Yes Severely obese (Body Mass Index of 40 or higher):: No Diabetic:: No Has chronic kidney disease undergoing dialysis:: No Has liver disease:: No Medical History: Past Medical History (Last Reviewed 09/21/20 @ 10:54 by Nikolai Robert NP, CUT OFF MACHINE OPERATOR-C) (HFpEF) heart failure with preserved ejection fraction I50.30 Acute hypoxemic respiratory failure J96.01 Aspiration pneumonia J69.0 Atherosclerotic heart disease of [place] coronary artery without angina pectoris I25.10 Bilateral pneumonia J18.9 Bladder cancer Carotid bruit R09.89 CKD (chronic kidney disease) stage 3, GFR 30-59 ml/min N18.30 COPD (chronic obstructive pulmonary disease) J44.9 COVID-19 Onset Date: 11/2019 U07.1 Diverticulosis K57.90 Essential (primary) hypertension I10 GERD with esophagitis K21.00 History of nephrolithiasis Z87.442 HLD (hyperlipidemia) E78.5 Hypoxia R09.02 Lung cancer C34.90 left lower lobe lobectomy without radiation Persistent atrial fibrillation Onset Date: 11/2019 I48.19 Pulmonary nodules Renal calculi N20.0 left Secondary pulmonary arterial hypertension I27.21 Sepsis A41.9 Surgical History: Past Surgical History (Last Reviewed 09/21/20 @ 10:54 by Nikolai Robert NP, CUT OFF MACHINE OPERATOR-C) H/O coronary artery bypass surgery Onset Date: 07/20/03 Z95.1 CABG x6: Sequential JUAREZ-Ramus and D1, BDU to LAD, SVG -D2, Sequential SVG- PDA and LCx 07/20/2003 History of left heart catheterization (LHC) Onset Date: 10/18/12 Z98.890 01/07/2005 History of lithotripsy Onset Date: 02/2019 Z98.890 History of lobectomy of lung Z90.2 History of tonsillectomy Z98.890, Z90.89 History of transurethral resection of prostate Onset Date: 06/03/06 Z98.890, Z90.79 Family History: Family History (Last Reviewed 09/21/20 @ 10:54 by Nikolai Robert NP, CUT OFF MACHINE OPERATOR-C) Mother Cancer Lung CA Brother Diabetes - Current/ Previous Services Pulmonary Rehab:: No - Comments Comments: Did do cardiac rehab after his CABG back in 2003. Social History - Smoking History Smoking Status: Former smoker - Quit smoking 27 years ago. Hx Tobacco Use: No Hx Smoking Exposure: No - Alcohol Use Alcohol Usage: Yes - a little glass of wine once in a while. - Substance Abuse Hx Substance Use: No - Occupation Occupation (List type of work in comments):: Retired - Hobbies, Recreation, Social Activities Hobbies: Sports - Golfing, Watch TV, Other - Mowing lawn work. Love to cook. Recreational Activities: I am able to engage in a few activities - attempt to do things but do them slowly. Just wish could do more. Functioning ADL/IADL - Current Ability Current Ability: Independent Self-Care (e.g.,grooming, dressing, & bathing), Independent Ambulation, Independent Transfer, Independent Household tasks (e.g., light meal prep, laundry, shopping) - Pt Functioning Prior to Problem Prior Functioning: Self-Care (e.g.,grooming, dressing, & bathing): Independent, Ambulation: Independent, Transfer: Independent, Household tasks (e.g., light meal prep, laundry, shopping): Independent Social Environment - Status Marital Status: - Current Living Arrangements Living Environment:: Spouse - Children How many children do you have?: 4 Do any of your children live nearby?: Yes - Safety Do you feel safe in your surroundings?: Yes - Assistance Do you need any assistance at home?: Previous had Home Health Care Services through [facility] but was discharged. Review of Systems Review of Systems: Right click = Denies ([place]). Left click = Reports ([place]) Respiratory: Reports: SOB upon Exertion, Appetite, Normal, Dizziness/Lightheadedness - alot of that when I bend over, Fatigue, Sleep, Normal. Denies: Cough, SOB at Rest, Sputum production, Wheezing, Sexual changes Is Patient Pain Free?: Yes Pain Location: back Pain Level: 8/10 - Chronic pain in my back; starting pain management injections . Risk Factor Assessment - Vital Signs Temperature: 97.5 F Pulse Rhythm: Regular Respiratory Rate: 18 Pulse Ox: 99 - on 3 liters nasal Blood Pressure: 103/64 - Diabetes Nutrition Referral for Diabetes: No - Obesity Height: 5 ft 10 in Weight:: 191 lb Weight in Pounds: 191.0 lbs Weight Source: Estimated by Patient Body Mass Index (BMI): 27.3 Nutritional Referral for Obesity: No - Physical Activity Physical Inactivity: None - Risk Stratification Risk Guidelines: Lowest Risk: Risk Factor for Smoking, Risk Factor for Dyslipidemia, Risk Factor for Diabetes, Risk Factor for Obesity, Risk Factor for Hypertension, Risk Factor for Depression, Moderate Risk: Risk Factor for Sedentary Lifestyle - Tries to be active just limited. Motivation - Motivation to Participate On a scale of 1 to 10, how prepared are you to commit to attending program?: 10 What do you see as barriers to successfully being able to complete the program?: no What do you see as the benefits of succesfully completing the program? In other words, what do you hope to get out of participating in the program?: Increased stamina, more energy, get back in shape. Are there issues you are dealing with that will interfere with completing the program?: dyspnea Do you have a spouse or signficant other, family or friends who will help support you to complete the program?: Yes
[2020-10-09 10:18] VITALS: BMI 24.5
[2020-10-09 10:42] VITALS: BP 103/64; RESP 18; TEMP 36.4; O2SAT 99; BMI 27.3
== END ==
PROVIDERS: PCP Internal Medicine; Referring Provider Internal Medicine Pulmonary Disease; Visit Provider Internal Medicine Pulmonary Disease
DX: J44.9 Chronic obstructive pulmonary disease, unspecified (principal)

== ENCOUNTER 2020-10-22 14:30 | Outpatient (RCR) | payer MEDICARE, OTHER, SELFPAY ==
[2020-10-09 10:42] VITALS: BMI 27.3
== END 2020-10-23 23:59 ==
LOC: PR 14:30
PROVIDERS: PCP Internal Medicine; Referring Provider Internal Medicine Pulmonary Disease; Visit Provider Internal Medicine Pulmonary Disease
DX: J96.11 Chronic respiratory failure with hypoxia (principal); J43.2 Centrilobular emphysema; I27.21 Secondary pulmonary arterial hypertension
CPT/HCPCS: 97150; G0424

== ENCOUNTER 2020-11-07 14:30 | Outpatient (RCR) | payer MEDICARE, OTHER, SELFPAY ==
[2020-10-24 00:44] VITALS: BMI 27.3
== END 2020-11-22 23:59 ==
LOC: PR 14:30
PROVIDERS: PCP Internal Medicine; Referring Provider Internal Medicine Pulmonary Disease; Visit Provider Internal Medicine Pulmonary Disease
DX: J96.11 Chronic respiratory failure with hypoxia (principal); J43.2 Centrilobular emphysema; I27.21 Secondary pulmonary arterial hypertension
CPT/HCPCS: 97150; G0424

== ENCOUNTER → 2020-11-13 12:57 | Outpatient (CLI) | payer MEDICARE, OTHER, SELFPAY ==
[2020-11-13 14:06] LABS: Anion Gap 4 (5-15); BUN 37 mg/dL (7-18); BUN/Creat Ratio 21.9 RATIO (10-20); Calcium,Total 10.9 mg/dL (8.5-10.1); Chloride 104 mmol/L (98-107); Creatinine, Serum 1.69 mg/dL (0.70-1.30); EST Glomerular Filtration Rate 42 mL/min (>60); Est Glom Filt Rate - Afr Amer 51 mL/min (>60); Glucose 109 mg/dL (74-106); Potassium 4.6 mmol/L (3.5-5.1); Sodium Level 138 mmol/L (136-145)
[2020-11-13 14:07] LABS: BNP,B-Type NATRIURETIC PEPTIDE 257.3 pg/mL (0-100)
== END ==
PROVIDERS: PCP Internal Medicine; Referring Provider Nurse Practitioner Gerontology; Visit Provider Nurse Practitioner Gerontology
DX: I48.19 Other persistent atrial fibrillation (principal); I25.10 Atherosclerotic heart disease of native coronary artery without angina pectoris; Z95.1 Presence of aortocoronary bypass graft; R06.00 Dyspnea, unspecified
CPT/HCPCS: 36415; 80048; 83880

== ENCOUNTER → 2020-11-28 09:38 | Outpatient (CLI) | payer MEDICARE, OTHER, SELFPAY ==
[2020-11-28 11:12] LABS: Anion Gap 6 (5-15); BUN 51 mg/dL (7-18); BUN/Creat Ratio 25.6 RATIO (10-20); Calcium,Total 10.2 mg/dL (8.5-10.1); Chloride 100 mmol/L (98-107); Creatinine, Serum 1.99 mg/dL (0.70-1.30); EST Glomerular Filtration Rate 35 mL/min (>60); Est Glom Filt Rate - Afr Amer 42 mL/min (>60); Glucose 92 mg/dL (74-106); Potassium 4.2 mmol/L (3.5-5.1); Sodium Level 139 mmol/L (136-145)
== END ==
PROVIDERS: PCP Internal Medicine; Visit Provider Physician Assistant Medical
DX: I48.19 Other persistent atrial fibrillation (principal)
CPT/HCPCS: 36415; 80048

== ENCOUNTER → 2020-12-14 09:57 | Outpatient (CLI) | payer MEDICARE, OTHER, SELFPAY ==
[2020-12-14 11:01] LABS: Anion Gap 5 (5-15); BUN 36 mg/dL (7-18); BUN/Creat Ratio 20.2 RATIO (10-20); Calcium,Total 10.5 mg/dL (8.5-10.1); Chloride 104 mmol/L (98-107); Creatinine, Serum 1.78 mg/dL (0.70-1.30); EST Glomerular Filtration Rate 39 mL/min (>60); Est Glom Filt Rate - Afr Amer 48 mL/min (>60); Glucose 105 mg/dL (74-106); Potassium 4.2 mmol/L (3.5-5.1); Sodium Level 141 mmol/L (136-145)
== END ==
PROVIDERS: PCP Internal Medicine; Referring Provider Physician Assistant Medical; Visit Provider Physician Assistant Medical
DX: I25.10 Atherosclerotic heart disease of native coronary artery without angina pectoris (principal)
CPT/HCPCS: 36415; 80048

== ENCOUNTER → 2021-01-24 07:47 | Outpatient (CLI) | payer MEDICARE, OTHER, SELFPAY ==
--- NOTE | 2021-01-24 08:19 | RAD_ITS ---
STUDY: X-RAY CHEST REASON FOR EXAM: Male, 80 years old. HEMOPTYSIS TECHNIQUE: PA and lateral views of the chest. COMPARISON: 06/21/2020 FINDINGS: Calcified granulomas and right mid to lower lung opacity redemonstrated. Left lung base atelectasis/scarring. There may be a small left pleural effusion. Normal size heart. Sternal wires and CABG. Normal mediastinum and babak. There is prominence of the pulmonary hilar arteries and peripheral pulmonary arteries, consistent with congestive heart failure (CHF). There is atherosclerotic calcification of the aortic arch with tortuosity. There is no demonstrated abnormality of the visualized soft tissue structures of the upper abdomen. RAD/Chest PA and Lateral IMPRESSION: Chronic changes and CHF. Suspect small left pleural effusion. Electronically Signed: Valeriy Gabriel MD at 0:18 EST Tel , Service support ,
[2021-01-24 08:57] LABS: Absolute Lymphocyte Count 1.73 X10^3/uL (0.83-4.51); Absolute Neutrophil Count 6.1 X10^3/uL (2.0-7.7); Basophil# 0.04 X10^3/uL; Basophil% 0.4 % (0-1); Eosinophil# 0.21 X10^3/uL; Eosinophils% 2.3 % (0-5); Hematocrit 40.2 % (40-54); Hemoglobin 13.1 g/dL (13.0-16.5); Lymphocyte # 1.73 X10^3/ul (0.83-4.51); Lymphocyte % 19.1 % (19-41); Mean Corp Hgb Conc 32.6 g/dL (32-36); Mean Corpuscular Hgb 31.3 pg (27.0-32.0); Mean Corpuscular Volume 96.2 fL (80-94); Mean Platelet Vol. 9.9 fl (6.2-12.0); Monocyte# 0.88 X10^3/uL; Monocyte% 9.7 % (0-10); NRBC Flagged by Analyzer 0 % (0-5); Neutrophil # 6.14 X10^3/uL (2.7-7.7); Neutrophil % 68.1 % (47-70); Platelet Count 158 K/mm3 (150-450); RBC Distribution Width CV 12.9 % (11.6-14.6); Red Blood Count 4.18 M/mm3 (4.6-6.2)
== END ==
PROVIDERS: PCP Internal Medicine; Referring Provider Nurse Practitioner; Visit Provider Nurse Practitioner
DX: R04.2 Hemoptysis (principal)
CPT/HCPCS: 36415; 71046; 85025

== ENCOUNTER → 2021-01-25 | Outpatient (CLI) | payer MEDICARE, OTHER, SELFPAY | END | disposition home or self-care (01) | LOC: LABSPEC 07:44 | PROVIDERS: PCP Internal Medicine; Referring Provider Internal Medicine; Visit Provider Internal Medicine | DX: R04.2 Hemoptysis (principal) | CPT/HCPCS: 87070; 87205 ==

== ENCOUNTER 2021-05-12 15:36 | Emergency (ER) | payer MEDICARE, OTHER, SELFPAY ==
[2021-05-12 15:36] VITALS: BP 132/75; PULSE 111; RESP 18; TEMP 36.1; O2SAT 93; BMI 25.9
--- NOTE | 2021-05-12 16:00 | EKG12_ITS ---
Test Reason : GI BLEED Blood Pressure : / mmHG Vent. Rate : 119 BPM Atrial Rate : 119 BPM P-R Int : 162 ms QRS Dur : 104 ms QT Int : 338 ms P-R-T Axes : 003 235 000 degrees QTc Int : 475 ms Sinus tachycardia Inferior infarct , age undetermined Abnormal ECG Confirmed by MATTHEW GARCIA, JOANNE ([id number]), electronic news gathering editor GABRIELLA IBARRA ([id number]) on 05/16/2021 9:21:10 AM Referred By: BROOKS Confirmed By:JOANNE CASTRO MD
--- NOTE | 2021-05-12 16:00 | CT_ITS ---
STUDY: CT ABDOMEN AND PELVIS WITH CONTRAST REASON FOR EXAM: Male, 80 years old. epigastric pain RADIATION DOSAGE (If Supplied By Facility): CTDIvol = ( 15.90 ) mGy, DLP = ( 740.41 ) mGycm TECHNIQUE: Transaxial images were obtained from the dome of the diaphragm to the symphysis pubis without oral contrast. IV 75mL Isovue-370 was administered. Sagittal and coronal images were reconstructed. Individualized dose optimization techniques were used for this CT. COMPARISON: 12/11/2016 FINDINGS: Small to moderate-sized hiatal hernia. The patient''s known 0.5 cm nodule in the right lower lobe is partially included. Calcified granuloma in the right lung base. Right basilar dependent atelectasis. A 1.1 cm cyst in the segment 4 of the liver. Unremarkable spleen and adrenals. Interval increase in size of the cystic lesion in the anterior aspect of the pancreatic body, currently measuring 1.4 cm compared to 0.7 cm on the prior study. Sludge and tiny layering stones in the gallbladder. Bilateral nonobstructing renal stones measuring up to 0.4 cm in diameter. No radiopaque stone in the ureters. Bilateral renal cortical cysts measuring up to 2.8 cm in diameter. Colonic diverticulosis. No acute diverticulitis. Bowel loops nonobstructed. Multiple fluid-filled small bowel loops are seen, nonspecific. Normal appendix. No free air or free fluid. No adenopathy. Vascular calcification with no abdominal aortic aneurysm. Sections through the pelvis demonstrate an enlarged prostate causing mass effect on the neck of the incompletely distended urinary bladder. Prostate incompletely distended. Small fat-containing inguinal hernias. Multilevel thoracolumbar spondylosis mild levoscoliosis. Mild osteoarthritis of the bilateral hip joints. CT/Abdomen/Pelvis W IV Cont ONLY IMPRESSION: Cholelithiasis and gallbladder sludge. Bilateral nonobstructing renal stones. Multiple fluid-filled small bowel loops, nonspecific finding which can be seen with acute enteritis. Colonic diverticulosis. No acute diverticulitis. Normal appendix. Electronically Signed: Judson White MD at 17:39 EDT ,
--- NOTE | 2021-05-12 16:02 | RAD_ITS ---
STUDY: X-RAY CHEST REASON FOR EXAM: Male, 80 years old. epigatric pain TECHNIQUE: 04/14/2020 COMPARISON: None. FINDINGS: Cardiomediastinal silhouette is unremarkable. The left costophrenic angle is blunted. Calcified granulomas in the right lung redemonstrated. The trachea is midline. There is no pneumothorax. Sternotomy wires are grossly intact. RAD/Chest 1 View (Portable) IMPRESSION: Small left-sided pleural effusion. Electronically Signed: Judson White MD at 16:48 EDT ,
--- NOTE | 2021-05-12 16:04 | ED.VIS.GI ---
HPI HPI - GI History of Present Illness Chief Complaint: GI Bleed Narrative Narrative: 80-year-old male presenting with epigastric pain. He states he has felt unwell since Thursday. He had shrimp cocktail prior to this. He states that over the next day he felt worse. He had nausea over the course of the day. Now he states he vomited black vomit a couple of times. No bloody emesis. He states he is having black bowel movements. He did have Pepto Bismol after his initial black vomit and states this is not helped. He does have history of acid reflux and he states that his epigastric area is burning. He feels generally weak. He is on his baseline home oxygen at 3 L which he has had since he had COVID-19. He is on anticoagulation with Eliquis for atrial fibrillation. Patient did take his Eliquis this morning. [facility] History (HFpEF) heart failure with preserved ejection fraction Acute hypoxemic respiratory failure Aspiration pneumonia Atherosclerotic heart disease of [place] coronary artery without angina pectoris Bilateral pneumonia Bladder cancer Carotid bruit CKD (chronic kidney disease) stage 3, GFR 30-59 ml/min COPD (chronic obstructive pulmonary disease) COVID-19 (11/2019) Diverticulosis Essential (primary) hypertension GERD with esophagitis History of nephrolithiasis HLD (hyperlipidemia) Hypoxia Lung cancer Persistent atrial fibrillation (11/2019) Pulmonary nodules Renal calculi Secondary pulmonary arterial hypertension Sepsis Home Medications albuterol sulfate 1 - 2 puff INHALATION Q4H PRN PRN 12/04/15 [History Last Taken 12/21/19] umeclidinium-vilanterol 1 ea IH DAILY 06/23/18 [History Last Taken 06/30/18 08:00] tamsulosin 0.4 mg capsule 0.4 mg PO DAILY #30 cap 09/16/18 [History Last Taken 12/22/19] Ibuprofen 400 mg PO DAILY PRN PRN 12/23/19 [History Last Taken 1 Week Ago ~12/16/19] acetaminophen 1,000 mg PO DAILY PRN PRN 12/23/19 [History Last Taken 12/23/19] magnesium oxide 400 mg PO DAILY #90 tab 07/20/20 [Rx Last Taken Unknown] COVID-19 vacc,mRNA(Pfizer)(PF) [Pfizer COVID-19 Vaccine (EUA)] ml IM 10/09/20 [History Last Taken Unknown] sertraline 50 mg tablet 75 mg PO QHS tab 11/14/20 [History Last Taken Unknown] spironolactone 25 mg tablet 25 mg PO DAILY tab 11/14/20 [History Last Taken Unknown] pravastatin 40 mg tablet 40 mg PO DAILY #90 tab 12/04/20 [Rx Last Taken Unknown] furosemide 40 mg tablet 40 mg PO BID #180 tab 12/24/20 [Rx Last Taken Unknown] metoprolol tartrate 50 mg tablet 50 mg PO BID #180 tab 12/24/20 [Rx Last Taken Unknown] omeprazole 20 mg capsule,delayed release 20 mg PO BID #90 cap 03/15/21 [Rx Last Taken Unknown] apixaban 5 mg tablet 5 mg PO BID #180 tab 04/29/21 [Rx Last Taken Unknown] isosorbide mononitrate 60 mg PO QHS 05/12/21 [History Last Taken Unknown] ondansetron 4 mg PO Q8H PRN #10 tab 05/12/21 [Rx Last Taken Unknown] sucralfate [Carafate] 10 ml PO BID PRN #200 ml 05/12/21 [Rx Last Taken Unknown] Allergy/AdvReac Type Severity Reaction Status Date / Time No Known Allergies Allergy Verified 05/12/21 15:40 Family History Mother Cancer Lung CA Brother Diabetes Surgical History H/O coronary artery bypass surgery (07/20/03) History of left heart catheterization (LHC) (10/18/12) History of lithotripsy (02/2019) History of lobectomy of lung History of tonsillectomy History of transurethral resection of prostate (06/03/06) Social History Smoking Status: Former smoker alcohol intake: current alcohol intake frequency: a few times a week Alcohol type: wine substance use type: does not use caffeine: Yes Type: coffee Number of servings: 3 what type of physical activity do you participate in: none seatbelt use: always do you feel safe at home: Yes ROS ROS ED Constitutional Constitutional ED: Denies chills or fever(s) ENT ENT ED: Denies rhinorrhea or sore throat Cardiovascular Cardiovascular: Denies chest pain or palpitations Respiratory/Chest Respiratory/Chest: Denies cough or dyspnea Gastrointestinal Gastrointestinal: Reports abdominal pain, melena and other Details: Black emesis Genitourinary Genitourinary ED: Denies dysuria or hematuria Musculoskeletal Musculoskeletal: Denies back pain, myalgias or neck pain Integumentary Denies rash Neurologic Neurologic: Denies headache(s), paresthesias or weakness Psychiatric Psychiatric: Denies anxiety or depression EXAM Physical Exam Const Vital Signs: 05/12/21 15:36 05/12/21 17:23 05/12/21 17:58 Temperature 97.0 F L Temperature Source Temporal Pulse Rate 111 H 102 H 91 Respiratory Rate 18 17 Blood Pressure 132/75 H 123/63 H 111/71 Blood Pressure Mean 94 83 Pulse Ox 93 96 95 Oxygen Delivery Method Nasal Cannula Nasal Cannula Oxygen Flow Rate (L/min) 5 3 Positive well nourished General Appearance ED: NAD; Negative for pallor HEENT Reports moist mucous membranes normocephalic and atraumatic Eyes PERRL and EOMs intact bilaterally General Eye ED: Negative for pale conjunctiva or scleral icterus Resp normal respiratory effort and clear to auscultation bilaterally Cardio regular rate and regular rhythm GI Palpation: soft and tender epigastric Neuro CN's II-XII intact bilaterally and moves all extremities Sensorium / Orientation: alert, oriented to person, oriented to place and oriented to time Psych mental status grossly normal Skin General Skin Exam: Negative for jaundice or pallor MDM MDM MDM Narrative Medical decision making narrative: Patient presented with epigastric pain, nausea, vomiting. Patient given morphine, Protonix via IV. He is also given Zofran. Lab work is obtained and his CBC is normal. He has no leukocytosis. His hemoglobin is actually higher than previous at 15.9. His creatinine is at baseline. BUN slightly elevated. Patient given IV fluids. Potassium slightly low at 3.2. LFTs are not elevated. Lipase is normal. Urinalysis negative for infection. Hemoccult stool negative. CT of the abdomen is pelvis is obtained and this does show cholelithiasis without signs of [place] cystitis and his lab work does not indicate cholecystitis. He does have a known pancreatic cyst which is slightly more enlarged however his lipase is normal. Patient has a known hiatal hernia as well which may be causing some of his symptoms. I do not believe it is gallbladder today. He has improvement with his symptoms after treatment. Believe the patient is stable for discharge at this time. He orally will take his PPI at home and he is given Carafate as needed as well as Zofran for nausea. He was given referral to Dr. Isbell he continues have symptoms. Return precautions discussed from a GI standpoint. The patient did have epigastric pain I did obtain an EKG which on my interpretation shows a sinus tachycardia with a ventricular rate of 119/min which appears to have improved with treatment. High-sensitivity troponin is 15. Chest x-ray on my interpretation shows a very small left pleural effusion without any change in his O2 demand. His vital signs are otherwise stable currently. I do not believe this is cardiac in nature. Again the patient's work-up is ultimately normal and he will be discharged home to follow-up with his primary care physician and Dr. Isbell as needed. Impression: 1. Nausea/vomiting 2. Cholelithiasis line 3. Pancreatic cyst 4. Hiatal hernia 5. Concern for GI bleed found 6. Epigastric pain Lab Data Attestation: I reviewed the patient's lab results. Labs: Laboratory Results - last 24 hr 05/12/21 05/12/21 05/12/21 16:10 16:10 16:10 WBC 7.0 RBC 4.80 Hgb 15.9 Hct 45.5 MCV 94.8 H MCH 33.1 H MCHC 34.9 RDW Std Deviation 45.3 H RDW Coeff of Jamar 13.0 Plt Count 125 L MPV 10.2 Immature Gran % (Auto) 0.300 Neut % (Auto) 78.1 H Lymph % (Auto) 12.3 L [place] % (Auto) 7.9 Eos % (Auto) 1.1 Baso % (Auto) 0.3 Absolute Neuts (auto) 5.5 Absolute Lymphs (auto) 0.86 Nucleated RBC % 0 Sodium 139 Potassium 3.2 L Chloride 99 Carbon Dioxide 32.0 Anion Gap 8 BUN 47 H Creatinine 1.79 H Estim Creat Clear Calc 34.55 Est GFR (MDRD) Af Amer 47 L Est GFR (MDRD) Non-Af 39 L BUN/Creatinine Ratio 26.3 H Glucose 139 H Calcium 10.5 H Total Bilirubin 1.00 Direct Bilirubin 0.24 AST 12 L ALT 14 L Alkaline Phosphatase 56 Troponin I High Sens 15 Total Protein 7.4 Albumin 3.8 Globulin 3.6 Lipase 50 L Urine Color Urine Clarity Urine pH Ur Specific [place] Urine Protein Urine Glucose (UA) Urine Ketones Urine Occult Blood Urine Nitrite Urine Bilirubin Urine Urobilinogen Ur Leukocyte Esterase Urine RBC Urine WBC Ur Squamous Epith Cells Urine Bacteria Hyaline Casts Urine Mucus Blood Type O POSITIVE Antibody Screen NEGATIVE 05/12/21 16:46 WBC RBC Hgb Hct MCV MCH MCHC RDW Std Deviation RDW Coeff of Jamar Plt Count MPV Immature Gran % (Auto) Neut % (Auto) Lymph % (Auto) [place] % (Auto) Eos % (Auto) Baso % (Auto) Absolute Neuts (auto) Absolute Lymphs (auto) Nucleated RBC % Sodium Potassium Chloride Carbon Dioxide Anion Gap BUN Creatinine Estim Creat Clear Calc Est GFR (MDRD) Af Amer Est GFR (MDRD) Non-Af BUN/Creatinine Ratio Glucose Calcium Total Bilirubin Direct Bilirubin AST ALT Alkaline Phosphatase Troponin I High Sens Total Protein Albumin Globulin Lipase Urine Color Yellow Urine Clarity Clear Urine pH 6.5 Ur Specific [place] 1.015 Urine Protein 15 H Urine Glucose (UA) Normal Urine Ketones Negative Urine Occult Blood 10 H Urine Nitrite Negative Urine Bilirubin Negative Urine Urobilinogen Normal Ur Leukocyte Esterase 25 H Urine RBC 0-5 SEEN Urine WBC 0-5 SEEN Ur Squamous Epith Cells 0-5 SEEN Urine Bacteria 0 SEEN Hyaline Casts 0-5 SEEN Urine Mucus 0 SEEN Blood Type Antibody Screen Radiography Diagnostic Testing: Clinical Impression(s) from Imaging Studies Abdomen/Pelvis CT 05/12/21 16:00 IMPRESSION: Cholelithiasis and gallbladder sludge. Bilateral nonobstructing renal stones. Multiple fluid-filled small bowel loops, nonspecific finding which can be seen with acute enteritis. Colonic diverticulosis. No acute diverticulitis. Normal appendix. Electronically Signed: Judson White MD at 17:39 EDT , Chest X-Ray 05/12/21 16:02 IMPRESSION: Small left-sided pleural effusion. Electronically Signed: Judson White MD at 16:48 EDT , Discharge Plan Triage Chief Complaint: GI Bleed Other Complaint: General Illness ED Provider: Kumar Boswell Dx/Rx/DC Orders Clinical Impression: Hiatal hernia, Pancreatic cyst, Cholelithiasis Instructions: Discharge Instructions for ..., ED Vomiting (Adult), ED Hiatal Hernia Prescriptions: New ondansetron 4 mg tablet,disintegrating 4 mg PO Q8H PRN (Reason: nausea and vomiting) Qty: 10 RF: 0 sucralfate [Carafate] 100 mg/mL suspension 10 ml PO BID PRN (Reason: gastric reflux) Qty: 200 RF: 0 No Action tamsulosin 0.4 mg capsule 0.4 mg PO DAILY Qty: 30 RF: 0 magnesium oxide 400 mg magnesium tablet 400 mg PO DAILY Qty: 90 RF: 3 spironolactone 25 mg tablet 25 mg PO DAILY RF: 0 sertraline 50 mg tablet 75 mg PO QHS RF: 0 albuterol sulfate 1 INHALER inhaler 1 - 2 puff INHALATION Q4H PRN PRN (Reason: Wheezing) RF: 0 umeclidinium-vilanterol 1 EACH blister with device 1 ea IH DAILY RF: 0 acetaminophen 500 MG tablet 1,000 mg PO DAILY PRN PRN (Reason: Pain 1-10 Or Fever) RF: 0 Ibuprofen 200 MG tablet 400 mg PO DAILY PRN PRN (Reason: Pain 1-10 Or Fever) RF: 0 Pfizer COVID-19 Vaccine (EUA) 30 mcg/0.3 mL Suspension For Reconstitution IM RF: 0 isosorbide mononitrate 30 mg tablet extended release 24 hr 60 mg PO QHS RF: 0 pravastatin 40 mg tablet 40 mg PO DAILY Qty: 90 RF: 3 metoprolol tartrate 50 mg tablet 50 mg PO BID Qty: 180 RF: 3 furosemide 40 mg tablet 40 mg PO BID Qty: 180 RF: 3 omeprazole 20 mg capsule,delayed release(DR/EC) 20 mg PO BID Qty: 90 RF: 3 Eliquis 5 mg tablet 5 mg PO BID Qty: 180 RF: 3 Primary Care Provider: Rosana Douglass Referrals: Rosana Douglass DO [Primary Care Provider] - Friend,DO Albaro [STAFF PHYSICIAN] - As Needed Disposition Disposition: Home, Self Care
[2021-05-12] MEDS: Ondansetron 4 MG/2 ML Vial IV (16:13)
[2021-05-12] MEDS: Morphine 4 MG/ML Syringe IV (16:13)
[2021-05-12 16:20] LABS: Absolute Lymphocyte Count 0.86 X10^3/uL (0.83-4.51); Absolute Neutrophil Count 5.5 X10^3/uL (2.0-7.7); Basophil# 0.02 X10^3/uL; Basophil% 0.3 % (0-1); Eosinophil# 0.08 X10^3/uL; Eosinophils% 1.1 % (0-5); Hematocrit 45.5 % (40-54); Hemoglobin 15.9 g/dL (13.0-16.5); Lymphocyte # 0.86 X10^3/ul (0.83-4.51); Lymphocyte % 12.3 % (19-41); Mean Corp Hgb Conc 34.9 g/dL (32-36); Mean Corpuscular Hgb 33.1 pg (27.0-32.0); Mean Corpuscular Volume 94.8 fL (80-94); Mean Platelet Vol. 10.2 fl (6.2-12.0); Monocyte# 0.55 X10^3/uL; Monocyte% 7.9 % (0-10); NRBC Flagged by Analyzer 0 % (0-5); Neutrophil # 5.47 X10^3/uL (2.7-7.7); Neutrophil % 78.1 % (47-70); Platelet Count 125 K/mm3 (150-450); RBC Distribution Width SD 45.3 fl (35.1-43.9)
[2021-05-12 16:38] LABS: AST(SGOT) 12 U/L (15-37); Alanine Aminotransfer ALT/SGPT 14 U/L (16-61); Albumin, Serum 3.8 g/dL (3.2-5.0); Alkaline Phosphatase 56 U/L (45-117); Anion Gap 8 (5-15); BUN 47 mg/dL (7-18); BUN/Creat Ratio 26.3 RATIO (10-20); Bilirubin, Direct 0.24 mg/dL (0.00-0.30); Calcium,Total 10.5 mg/dL (8.5-10.1); Chloride 99 mmol/L (98-107); Creatinine, Serum 1.79 mg/dL (0.70-1.30); EST Glomerular Filtration Rate 39 mL/min (>60); Est Glom Filt Rate - Afr Amer 47 mL/min (>60); Estimated Creatinine Clearance 34.55 ml/min; Globulin 3.6 g/dL (2.2-4.2); Glucose 139 mg/dL (74-106); Lipase 50 U/L (73-393); Potassium 3.2 mmol/L (3.5-5.1); Protein, Total 7.4 g/dL (6.4-8.2); Sodium Level 139 mmol/L (136-145); Troponin-I HS 15 pg/mL (3.0-78.0)
[2021-05-12 16:51] LABS: Bacteria 0 SEEN /hpf (None Seen); Mucous, Urine 0 SEEN /hpf (<or=2+)
[2021-05-12 16:57] LABS: Color, Urine Yellow (Yellow); Glucose, Dipstick Normal (Normal); Ketone-Dipstick Negative (Negative); Leukocyte Esterase-Dipstick 25 /ul (Negative); Nitrite-Dipstick Negative (Negative); Occult Blood-Urine 10 /ul (Negative); Protein-Dipstick 15 mg/dl (Negative); Specific Gravity, Urine 1.015 (1.002-1.030); Urine Bilirubin Dipstick Negative (Negative); Urine Clarity Clear (Clear); Urine Urobilinogen Normal (Normal); Urine pH 6.5 (5.0 - 8.0)
[2021-05-12 17:09] LABS: Red Blood Cells-Urine 0-5 SEEN /hpf (0-5); Squamous Epithelial Cells - UA 0-5 SEEN /hpf (0-5); White Blood Cells 0-5 SEEN /hpf (0-5)
[2021-05-12 17:10] LABS: Hyaline Cast 0-5 SEEN /lpf (0-5)
[2021-05-12 17:23] VITALS: BP 123/63; PULSE 102; RESP 17; O2SAT 96
[2021-05-12 17:58] VITALS: BP 111/71; PULSE 91; O2SAT 95
== END 2021-05-12 18:15 | disposition home or self-care (01) ==
PROVIDERS: Emergency Provider Student in an Organized Health Care Education/Training Program; PCP Internal Medicine; Visit Provider Student in an Organized Health Care Education/Training Program
DX: K44.9 Diaphragmatic hernia without obstruction or gangrene (principal); J44.9 Chronic obstructive pulmonary disease, unspecified; I13.0 Hypertensive heart and chronic kidney disease with heart failure and stage 1 through stage 4 chronic kidney disease, or unspecified chronic kidney disease; I50.32 Chronic diastolic (congestive) heart failure; I48.91 Unspecified atrial fibrillation; N18.30 Chronic kidney disease, stage 3 unspecified; K86.2 Cyst of pancreas; R11.2 Nausea with vomiting, unspecified; E78.5 Hyperlipidemia, unspecified; K80.20 Calculus of gallbladder without cholecystitis without obstruction; I25.10 Atherosclerotic heart disease of native coronary artery without angina pectoris; Z79.01 Long term (current) use of anticoagulants; Z95.1 Presence of aortocoronary bypass graft; Z87.891 Personal history of nicotine dependence; Z79.899 Other long term (current) drug therapy
CPT/HCPCS: 71045; 74177; 80048; 80076; 81001; 82274; 83690; 84484; 85025; 86850; 86900; 86901; 93005; 96365; 96375; 99283; Q9967; A4216; J2405

== ENCOUNTER → 2021-07-16 | Outpatient (CLI) | payer MEDICARE, OTHER, SELFPAY ==
[2021-07-16 16:39] LABS: Anion Gap 4 (5-15); BUN 47 mg/dL (7-18); BUN/Creat Ratio 27.3 RATIO (10-20); Calcium,Total 10.6 mg/dL (8.5-10.1); Chloride 104 mmol/L (98-107); Creatinine, Serum 1.72 mg/dL (0.70-1.30); EST Glomerular Filtration Rate 41 mL/min (>60); Est Glom Filt Rate - Afr Amer 50 mL/min (>60); Glucose 105 mg/dL (74-106); Potassium 4.2 mmol/L (3.5-5.1); Sodium Level 139 mmol/L (136-145)
[2021-07-16 16:40] LABS: BNP,B-Type NATRIURETIC PEPTIDE 178.9 pg/mL (0-100)
== END | disposition home or self-care (01) ==
LOC: LAB 16:08
PROVIDERS: PCP Internal Medicine; Referring Provider Internal Medicine Cardiovascular Disease; Visit Provider Internal Medicine Cardiovascular Disease
DX: I50.30 Unspecified diastolic (congestive) heart failure (principal)
CPT/HCPCS: 36415; 80048; 83880

== ENCOUNTER → 2022-01-20 | Outpatient (CLI) | payer MEDICARE, OTHER, SELFPAY ==
[2022-01-20 10:15] LABS: Absolute Lymphocyte Count 1.08 X10^3/uL (0.83-4.51); Basophil# 0.03 X10^3/uL; Basophil% 0.5 % (0-1); Eosinophil# 0.24 X10^3/uL; Hematocrit 45.1 % (40-54); Hemoglobin 14.5 g/dL (13.0-16.5); Lymphocyte # 1.08 X10^3/ul (0.83-4.51); Lymphocyte % 18.2 % (19-41); Mean Corp Hgb Conc 32.2 g/dL (32-36); Mean Corpuscular Volume 99.6 fL (80-94); Mean Platelet Vol. 9.9 fl (6.2-12.0); Monocyte# 0.55 X10^3/uL; Monocyte% 9.2 % (0-10); NRBC Flagged by Analyzer 0 % (0-5); Neutrophil # 4.02 X10^3/uL (2.7-7.7); Neutrophil % 67.6 % (47-70); Platelet Count 134 K/mm3 (150-450); RBC Distribution Width SD 50.9 fl (35.1-43.9); Red Blood Count 4.53 M/mm3 (4.6-6.2)
[2022-01-20 10:41] LABS: Anion Gap 4 (5-15); BUN 38 mg/dL (7-18); BUN/Creat Ratio 21.7 RATIO (10-20); Calcium,Total 10.7 mg/dL (8.5-10.1); Chloride 105 mmol/L (98-107); Creatinine, Serum 1.75 mg/dL (0.70-1.30); EST Glomerular Filtration Rate 40 mL/min (>60); Est Glom Filt Rate - Afr Amer 48 mL/min (>60); Glucose 121 mg/dL (74-106); Potassium 4.3 mmol/L (3.5-5.1); Sodium Level 139 mmol/L (136-145)
== END | disposition home or self-care (01) ==
LOC: LAB 09:46
PROVIDERS: PCP Internal Medicine; Referring Provider Physician Assistant Medical; Visit Provider Physician Assistant Medical
DX: I25.10 Atherosclerotic heart disease of native coronary artery without angina pectoris (principal); J44.9 Chronic obstructive pulmonary disease, unspecified; I50.30 Unspecified diastolic (congestive) heart failure; I11.0 Hypertensive heart disease with heart failure; I27.21 Secondary pulmonary arterial hypertension; I48.19 Other persistent atrial fibrillation; E78.5 Hyperlipidemia, unspecified
CPT/HCPCS: 36415; 80048; 85025

== ENCOUNTER 2022-03-27 12:55 | Inpatient (IN) | payer MEDICARE, OTHER, SELFPAY ==
[2022-03-27] VITALS (13 sets, daily range): BP systolic 112–145; BP diastolic 57–73; PULSE 55–76; RESP 17–26; TEMP 35.9–36.7; O2SAT 84–97; BMI 26.6; BMI 24.7
--- NOTE | 2022-03-27 13:12 | EKG12_ITS ---
Test Reason : SOB Blood Pressure : / mmHG Vent. Rate : 049 BPM Atrial Rate : 049 BPM P-R Int : 182 ms QRS Dur : 096 ms QT Int : 470 ms P-R-T Axes : -22 233 000 degrees QTc Int : 424 ms Sinus bradycardia Nonspecific ST abnormality Abnormal ECG Confirmed by ROLANDO GARCIA, ROMAN ([id number]), proposal editor BRENTON QUINTEROS ([id number]) on 03/28/2022 2:48:54 PM Referred By: JUAN LUIS Confirmed By:ALLI MARSHALL MD
--- NOTE | 2022-03-27 13:30 | RAD_ITS ---
STUDY: X-RAY CHEST REASON FOR EXAM: Male, 81 years old. Cough TECHNIQUE: Single AP portable view of the chest. COMPARISON: Comparison is made with prior study of 05/12/2021. FINDINGS: New patchy infiltrate in the right lower lobe. Stable pleural parenchymal changes at the left lung base. Stable calcified granulomas in the right lung. Sternal cerclage wires and vascular clips are present from a prior sternotomy and coronary artery bypass graft procedure (CABG). Normal mediastinum and babak. Normal visualized pulmonary arteries. There is atherosclerotic calcification of the aortic arch with tortuosity. There are diffuse degenerative changes of the visualized thoracic spine. Normal visualized ribs, clavicles, and shoulders. There is no demonstrated abnormality of the visualized soft tissue structures of the upper abdomen. RAD/Chest 1 View (Portable) IMPRESSION: New patchy infiltrate in the right lower lobe. Stable pleural parenchymal changes at the left lung base. Electronically Signed: Jake Bazzi MD at 13:48 EST ,
[2022-03-27 13:50] LABS: Absolute Lymphocyte Count 0.99 X10^3/uL (0.83-4.51); Absolute Neutrophil Count 2.7 X10^3/uL (2.0-7.7); Basophil# 0.05 X10^3/uL; Basophil% 1.1 % (0-1); Eosinophil# 0.16 X10^3/uL; Eosinophils% 3.6 % (0-5); Hematocrit 40.5 % (40-54); Hemoglobin 13.3 g/dL (13.0-16.5); Lymphocyte # 0.99 X10^3/ul (0.83-4.51); Lymphocyte % 22.3 % (19-41); Mean Corp Hgb Conc 32.8 g/dL (32-36); Mean Corpuscular Hgb 32.3 pg (27.0-32.0); Mean Corpuscular Volume 98.3 fL (80-94); Mean Platelet Vol. 9.4 fl (6.2-12.0); Monocyte# 0.53 X10^3/uL; Monocyte% 11.9 % (0-10); NRBC Flagged by Analyzer 0 % (0-5); Neutrophil # 2.69 X10^3/uL (2.7-7.7); Neutrophil % 60.6 % (47-70); Platelet Count 112 K/mm3 (150-450); RBC Distribution Width CV 13.3 % (11.6-14.6); RBC Distribution Width SD 47.8 fl (35.1-43.9); Red Blood Count 4.12 M/mm3 (4.6-6.2); White Blood Count 4.4 K/mm3 (4.4-11.0)
--- NOTE | 2022-03-27 13:51 | ED.VIS.DYS ---
HPI History of Present Illness Chief Complaint: Shortness of Breath Informant: patient and spouse/S.O. Narrative Narrative: History of COPD on chronic 4 L of oxygen. Worsening congestion productive cough over the past 6 days. No fevers. 6 days ago COVID testing positive. Spouse had COVID prior to that. He is vaccinated and had COVID back in 2019. Reports mild myalgias. No chest discomfort. Spoke with his PCP yesterday was told of his oxygen increased demands with worsening symptoms go to ED. He states on 4 L he walked his pulse ox was in the 70s he turned his oxygen up and came to the ED. Upon arrival on 6 L he was 84% in triage. Coronary disease history of 5 past. Currently is on Eliquis twice a day for history of paroxysmal atrial fibrillation. Prior similar symptoms: Yes PFSH PFSH Medical History (HFpEF) heart failure with preserved ejection fraction Acute hypoxemic respiratory failure Aspiration pneumonia Atherosclerotic heart disease of [place] coronary artery without angina pectoris Bilateral pneumonia Bladder cancer Carotid bruit CKD (chronic kidney disease) stage 3, GFR 30-59 ml/min COPD (chronic obstructive pulmonary disease) COVID-19 (11/2019) Diverticulosis Essential (primary) hypertension GERD with esophagitis History of nephrolithiasis HLD (hyperlipidemia) Hypoxia Lung cancer Persistent atrial fibrillation (11/2019) Pulmonary nodules Renal calculi Secondary pulmonary arterial hypertension Sepsis Traumatic hematoma of right forearm Home Medications albuterol sulfate 90 mcg/actuation aerosol inhaler 1 - 2 puff inhalation Q4H PRN PRN Wheezing 12/04/15 [History Last Taken 03/27/22] tamsulosin 0.4 mg capsule 0.4 mg PO DAILY prostate #30 caps 09/16/18 [History Last Taken 03/26/22] acetaminophen 500 mg tablet 1,000 mg PO DAILY PRN PRN Pain 1-10 Or Fever 12/23/19 [History Last Taken 03/27/22] sertraline 50 mg tablet 75 mg PO QHS depression 11/14/20 [History Last Taken 03/26/22] magnesium oxide 400 mg (241.3 mg magnesium) tablet 400 mg PO DAILY #90 tabs 07/16/21 [Rx Last Taken 03/26/22] spironolactone 50 mg tablet 25 mg PO DAILY #45 tabs 10/14/21 [Rx Last Taken 03/27/22] metoprolol tartrate 50 mg tablet 50 mg PO BID #180 tabs 10/21/21 [Rx Last Taken 03/27/22] furosemide 40 mg tablet 40 mg PO BID fluid #180 tabs 12/23/21 [Rx Last Taken 03/27/22] isosorbide mononitrate 30 mg tablet,extended release 24 hr 30 mg PO QHS heart #90 tabs 12/23/21 [Rx Last Taken 03/26/22] omeprazole 20 mg capsule,delayed release 20 mg PO BID gerd #180 caps 12/23/21 [Rx Last Taken 03/27/22] apixaban 2.5 mg tablet (Eliquis) 2.5 mg PO BID #180 tabs 01/20/22 [Rx Last Taken 03/27/22] pravastatin 40 mg tablet 40 mg PO DAILY cholesterol #90 tabs 01/20/22 [Rx Last Taken 03/27/22] glycopyrrolate 9 mcg-formoterol 4.8 mcg HFA aerosol inhaler (Bevespi Aerosphere) 2 inh inhalation BID COPD 03/27/22 [History Last Taken 03/26/22] Allergy/AdvReac Type Severity Reaction Status Date / Time No Known Allergies Allergy Verified 01/20/22 09:13 Family History Mother Cancer Lung CA Brother Diabetes Surgical History H/O coronary artery bypass surgery (07/20/03) History of left heart catheterization (LHC) (10/18/12) History of lithotripsy (02/2019) History of lobectomy of lung History of tonsillectomy History of transurethral resection of prostate (06/03/06) Social History Smoking Status: Former smoker alcohol intake: current alcohol intake frequency: a few times a week Alcohol type: wine substance use type: does not use caffeine: Yes Type: coffee Number of servings: 3 what type of physical activity do you participate in: none seatbelt use: always do you feel safe at home: Yes ROS ROS ED Constitutional Constitutional ED: Denies chills, fever(s) or sweats Eyes Eyes: Denies change in vision ENT ENT ED: Denies dysphagia or sore throat Cardiovascular Cardiovascular: Denies chest pain, leg edema, palpitations or racing heartbeat Respiratory/Chest Respiratory/Chest: Reports cough, dyspnea and dyspnea on exertion Gastrointestinal Gastrointestinal: Denies abdominal pain, diarrhea, nausea or vomiting Genitourinary Genitourinary ED: Denies dysuria, hematuria or urinary frequency Musculoskeletal Musculoskeletal: Reports myalgias; Denies back pain, extremity pain or neck pain Integumentary Denies rash or wounds Neurologic Neurologic: Denies headache(s), paresthesias or weakness EXAM Physical Exam Const Vital Signs: 03/27/22 12:57 03/27/22 14:06 03/27/22 14:07 Temperature 96.6 F L Temperature Source Temporal Pulse Rate 55 L 59 L Respiratory Rate 26 H 17 Respiratory Effort Respiratory Depth Respiratory Pattern Blood Pressure 112/57 L 116/73 Blood Pressure Mean 75 87 Pulse Ox 84 89 90 Oxygen Delivery Method Nasal Cannula Nasal Cannula Nasal Cannula Oxygen Flow Rate (L/min) 6 6 6 03/27/22 14:07 03/27/22 14:12 Temperature 98.1 F Temperature Source Temporal Pulse Rate 59 L Respiratory Rate 17 Respiratory Effort Normal Non-Labored Respiratory Depth Normal Respiratory Pattern Normal Blood Pressure 116/73 Blood Pressure Mean 87 Pulse Ox 97 Oxygen Delivery Method Nasal Cannula Nasal Cannula Oxygen Flow Rate (L/min) 6 6 Positive well nourished and well developed Constitutional Narrative: Nasal cannula at 5 L during exam no respiratory distress. General Appearance ED: well developed and NAD HEENT Reports moist mucous membranes normocephalic and atraumatic Eyes PERRL, EOMs intact bilaterally and conjunctivae normal General Eye ED: Yes normal appearance of both eyes Neck no lymphadenopathy and supple General: Negative for tenderness Chest Wall Chest: Negative for tenderness Resp normal respiratory effort and normal air movement Effort and Inspection: symmetric chest movement; Negative for respiratory distress Cardio regular rhythm and no murmurs Rate: bradycardia Peripheral Pulses: pulses 2+ throughout GI normal to inspection, nondistended, normoactive bowel sounds and non-tender Palpation: Negative for guarding or rebound tenderness present Back/Spine no CVA tenderness and no thoracic nor lumbar tenderness Extremity normal to inspection General Extremety ED: Negative for edema or tenderness General Extremity: Negative for edema Neuro oriented x3 and no sensory deficits noted Sensorium / Orientation: awake and alert Skin no rashes or lesions noted and no wounds MDM MDM MDM Narrative Medical decision making narrative: Patient positive home COVID test 6 days ago with onset of symptoms. He is hypoxic on arrival at 6 L. EKG sinus bradycardia he is on a beta-[place]. Denies lightheaded symptoms. Sepsis labs were ordered through COVID order set. We will recheck COVID, differential likely COVID infection and possible COVID-pneumonia, COPD exacerbation, less likely PE due to being on Eliquis. Work-up with 1 view chest x-ray interpreted myself and read by radiology right lower lobe pneumonia. White count 4 hemoglobin 13.3. Lactic acid 1. Creatinine 1.68 stable from previous. Elevated CRP. Procalcitonin pending. COVID positive on recheck. Upon ambulation on 6 L to restroom he returned he no respiratory distress was hypoxic in the high 80s, was planning on high flow oxygen to help with perfusion, however on respiratory evaluation he was back up in the 90s therefore he is maintained on 6 L nasal cannula. With hypoxia I started dexamethasone. Not a diabetic, blood glucose 91 in the lab. Due to increasing oxygen demand with hypoxia I spoke with hospitalist, Dr. Paulino for admission to [facility]. Condition discussed with the patient he was hospitalized in 2019 and he was not on a ventilator. Lab Data Attestation: I reviewed the patient's lab results. Labs: Laboratory Results - last 24 hr 03/27/22 03/27/22 03/27/22 13:30 13:30 13:30 WBC 4.4 RBC 4.12 L Hgb 13.3 Hct 40.5 MCV 98.3 H MCH 32.3 H MCHC 32.8 RDW Std Deviation 47.8 H RDW Coeff of Jamar 13.3 Plt Count 112 L MPV 9.4 Immature Gran % (Auto) 0.500 Neut % (Auto) 60.6 Lymph % (Auto) 22.3 [place] % (Auto) 11.9 H Eos % (Auto) 3.6 Baso % (Auto) 1.1 H Absolute Neuts (auto) 2.7 Absolute Lymphs (auto) 0.99 Nucleated RBC % 0 Sodium 142 Potassium 4.5 Chloride 107 Carbon Dioxide 29.0 Anion Gap 6 BUN 50 H Creatinine 1.68 H Estim Creat Clear Calc 36.21 Est GFR (MDRD) Af Amer 51 L Est GFR (MDRD) Non-Af 42 L BUN/Creatinine Ratio 29.8 H Glucose 91 Lactic Acid 1.0 Calcium 10.3 H Total Bilirubin 0.90 AST 18 ALT 19 Alkaline Phosphatase 73 Lactate Dehydrogenase 145 Troponin I High Sens 11 C-React Prot Ext Range 22.40 H Total Protein 7.2 Albumin 3.5 Globulin 3.7 Albumin/Globulin Ratio 0.9 Radiography Diagnostic Testing: Clinical Impression(s) from Imaging Studies Chest X-Ray 03/27/22 13:30 IMPRESSION: New patchy infiltrate in the right lower lobe. Stable pleural parenchymal changes at the left lung base. Electronically Signed: Jake Bazzi MD at 13:48 EST , EKG Initial EKG: Attestation: I personally reviewed and interpreted this EKG as follows: Comments: EKG sinus rate of 49, no ST or T wave changes. Discharge Plan Dx/Rx/DC Orders Clinical Impression: Pneumonia due to COVID-19 virus, Hypoxia, COPD exacerbation, Anticoagulant long-term use, AF (paroxysmal atrial fibrillation) Disposition Disposition: Acute Care [facility]
[2022-03-27 14:04] LABS: ALB/GLOB Ratio 0.9 RATIO (0.9-2.4); AST(SGOT) 18 U/L (15-37); Alanine Aminotransfer ALT/SGPT 19 U/L (16-61); Albumin, Serum 3.5 g/dL (3.2-5.0); Alkaline Phosphatase 73 U/L (45-117); Anion Gap 6 (5-15); BUN 50 mg/dL (7-18); BUN/Creat Ratio 29.8 RATIO (10-20); Calcium,Total 10.3 mg/dL (8.5-10.1); Chloride 107 mmol/L (98-107); Creatinine, Serum 1.68 mg/dL (0.70-1.30); EST Glomerular Filtration Rate 42 mL/min (>60); Est Glom Filt Rate - Afr Amer 51 mL/min (>60); Estimated Creatinine Clearance 36.21 ml/min; Globulin 3.7 g/dL (2.2-4.2); Glucose 91 mg/dL (74-106); LDH 145 U/L (87-241); Potassium 4.5 mmol/L (3.5-5.1); Protein, Total 7.2 g/dL (6.4-8.2); Sodium Level 142 mmol/L (136-145); Troponin-I HS 11 pg/mL (3.0-78.0)
[2022-03-27 14:33] LABS: Procalcitonin 0.13 ng/mL (0.00-0.09)
--- NOTE | 2022-03-27 14:50 | HP.PCM.HOS_ITS ---
[facility] - General General Date of Service: 03/27/22 Chief Complaint: shortness of breath. HPI Narrative RICKY BURNS, is a 81 M who presents with shortness of breath. Patient is on chronic oxygen due to COPD as well as his prior COVID exposure and hospitalization in 2019. In the fall 2019, patient was hospitalized for about 2 weeks and was discharged with oxygen which she has been on ever since. Patient has been doing well but over the past 6 days, he has progressively gotten more short of breath. More short of breath with exertion. Presented to the emerge ncy room and had a work-up that was fairly unremarkable, however, his COVID-19 test came back positive. To try to ambulate him and he dropped into the 70s on 6 L nasal cannula. The hospital service was contacted for admission. Patient has since been vaccinated for COVID-19 from his hospitalization in 2019. Patient's is currently sick with COVID-19. Patient states that he does not feel sick other than being short of breath. [facility] Medical History (HFpEF) heart failure with preserved ejection fraction Acute hypoxemic respiratory failure Aspiration pneumonia Atherosclerotic heart disease of [place] coronary artery without angina pectoris Bilateral pneumonia Bladder cancer Carotid bruit CKD (chronic kidney disease) stage 3, GFR 30-59 ml/min COPD (chronic obstructive pulmonary disease) COVID-19 (11/2019) Diverticulosis Essential (primary) hypertension GERD with esophagitis History of nephrolithiasis HLD (hyperlipidemia) Hypoxia Lung cancer Persistent atrial fibrillation (11/2019) Pulmonary nodules Renal calculi Secondary pulmonary arterial hypertension Sepsis Traumatic hematoma of right forearm Home Medications albuterol sulfate 90 mcg/actuation aerosol inhaler 1 - 2 puff inhalation Q4H PRN PRN Wheezing 12/04/15 [History Last Taken 03/27/22] tamsulosin 0.4 mg capsule 0.4 mg PO DAILY prostate #30 caps 09/16/18 [History Last Taken 03/26/22] acetaminophen 500 mg tablet 1,000 mg PO DAILY PRN PRN Pain 1-10 Or Fever 12/22 [History Last Taken 03/27/22] sertraline 50 mg tablet 75 mg PO QHS depression 11/14/20 [History Last Taken 03/26/22] magnesium oxide 400 mg (241.3 mg magnesium) tablet 400 mg PO DAILY #90 tabs [Rx Last Taken 03/26/22] spironolactone 50 mg tablet 25 mg PO DAILY #45 tabs 10/14/21 [Rx Last Taken 03/27/22] metoprolol tartrate 50 mg tablet 50 mg PO BID #180 tabs 10/21/21 [Rx Last Taken 03/27/22] furosemide 40 mg tablet 40 mg PO BID fluid #180 tabs 12/23/21 [Rx Last Taken 03/27/22] isosorbide mononitrate 30 mg tablet,extended release 24 hr 30 mg PO QHS heart #90 tabs 12/23/21 [Rx Last Taken 03/26/22] omeprazole 20 mg capsule,delayed release 20 mg PO BID gerd #180 caps 12/23/21 [Rx Last Taken 03/27/22] apixaban 2.5 mg tablet (Eliquis) 2.5 mg PO BID #180 tabs 01/20/22 [Rx Last Taken 03/27/22] pravastatin 40 mg tablet 40 mg PO DAILY cholesterol #90 tabs 01/20/22 [Rx Last Taken 03/27/22] glycopyrrolate 9 mcg-formoterol 4.8 mcg HFA aerosol inhaler (Bevespi Aerosphere) 2 inh inhalation BID COPD 03/27/22 [History Last Taken 03/26/22] Allergy/AdvReac Type Severity Reaction Status Date / Time No Known Allergies Allergy Verified 01/20/22 09:13 Family History Mother Cancer Lung CA Brother Diabetes Surgical History H/O coronary artery bypass surgery (07/20/03) History of left heart catheterization (LHC) (10/18/12) History of lithotripsy (02/2019) History of lobectomy of lung History of tonsillectomy History of transurethral resection of prostate (06/03/06) Social History Smoking Status: Former smoker alcohol intake: current alcohol intake frequency: a few times a week Alcohol type: wine substance use type: does not use caffeine: Yes Type: coffee Number of servings: 3 what type of physical activity do you participate in: none seatbelt use: always do you feel safe at home: Yes LIONEL Moeller Does have A. fib but denies any palpitations. All review of systems were negative except as mentioned above in the history of present illness and the other review of systems. Vital Signs Vital Signs Vital Signs: 03/27/22 12:57 03/27/22 14:06 03/27/22 14:07 Temperature 35.9 C L Temperature Source Temporal Pulse Rate 55 L 59 L Respiratory Rate 26 H 17 Respiratory Effort Respiratory Depth Respiratory Pattern Blood Pressure 112/57 L 116/73 Blood Pressure Mean 75 87 Pulse Ox 84 89 90 Oxygen Delivery Method Nasal Cannula Nasal Cannula Nasal Cannula Oxygen Flow Rate (L/min) 6 6 6 03/27/22 14:07 03/27/22 14:12 Temperature 36.7 C Temperature Source Temporal Pulse Rate 59 L Respiratory Rate 17 Respiratory Effort Normal Non-Labored Respiratory Depth Normal Respiratory Pattern Normal Blood Pressure 116/73 Blood Pressure Mean 87 Pulse Ox 97 Oxygen Delivery Method Nasal Cannula Nasal Cannula Oxygen Flow Rate (L/min) 6 6 Weight Weight: 84.368 kg Body Mass Index (BMI) 26.6 Physical Exam Narrative - Physical Exam General: Alert, Oriented x3, Cooperative HEENT: Atraumatic, PERRLA, EOMI, Normocephalic Oral: Moist Mucosa, No Gingival or Mucosal Lesions/ Ulcerations Neck: Supple, No JVD, Negative Carotid Bruits Lungs: Clear to auscultation, Normal air movement Cardiovascular: Regular rate, Normal S1, Normal S2, No murmurs Abdomen: Bowel Sounds Present, Soft, Non Tender, Non-Distended, No Hepato- splenomegaly Extremities: No clubbing, No cyanosis, No edema, Capillary Refill Less than 3 Seconds Skin: No rashes, No breakdown Musculoskeletal: No Tenderness to Palpation of Joints or Extremities Neurological: Neuro grossly intact Psych/Mental Status: Normal Affect, Appropriate Results Lab / Micro Data Attestation: I reviewed the patient's lab results. Result Diagrams: 03/27/22 13:30 03/27/22 13:30 Labs: Laboratory Results - last 24 hr 03/27/22 13:30: Sodium 142, Potassium 4.5, Chloride 107, Carbon Dioxide 29.0, Anion Gap 6, BUN 50 H, Creatinine 1.68 H, Estim Creat Clear Calc 36.21, Est GFR (MDRD) Af Amer 51 L, Est GFR (MDRD) Non-Af 42 L, BUN/Creatinine Ratio 29.8 H, Glucose 91, Calcium 10.3 H, Total Bilirubin 0.90, AST 18, ALT 19, Alkaline Ph osphatase 73, Lactate Dehydrogenase 145, Troponin I High Sens 11, C-React Prot Ext Range 22.40 H, Total Protein 7.2, Albumin 3.5, Globulin 3.7, Albumin/Globulin Ratio 0.9 03/27/22 13:30: Procalcitonin 0.13 H 03/27/22 13:30: WBC 4.4, RBC 4.12 L, Hgb 13.3, Hct 40.5, MCV 98.3 H, MCH 32.3 H, MCHC 32.8, RDW Std Deviation 47.8 H, RDW Coeff of Jamar 13.3, Plt Count 112 L, MPV 9.4, Immature Gran % (Auto) 0.500, Neut % (Auto) 60.6, Lymph % (Auto) 22.3, [place] % (Auto) 11.9 H, Eos % (Auto) 3.6, Baso % (Auto) 1.1 H, Absolute Neuts (auto) 2.7, Absolute Lymphs (auto) 0.99, Nucleated RBC % 0 03/27/22 13:30: Lactic Acid 1.0 Micro: Microbiology 03/27/22 13:35 Nasal Secretion SARS-CoV-2 Antigen (Rapid) - Final EKG Initial EKG: Attestation: I personally reviewed and interpreted this EKG as follows: Prior EKG tracings: available for review EKG Rhythm Intrepretation: Sinus Rhythm Radiology Impression Chest X-Ray 03/27/22 13:30 IMPRESSION: New patchy infiltrate in the right lower lobe. Stable pleural parenchymal changes at the left lung base. Electronically Signed: Jake Bazzi MD at 13:48 EST , Assessment & Plan Assessment/Plan (1) Acute and chronic respiratory failure with hypoxia: PLAN: The patient likely has changes due to his prior history of COVID-19 from 2019 as he was not on oxygen prior to that. Also does have COPD. That with his current bout of COVID-19 as pushed him over the edge. COPD is does not appear to be an exacerbation as he has no audible wheezing and does seem to have good air movement. Currently stable on 6 L at rest but when ambulated he will drop into the 70s. Lean oxygen as tolerated Pulmonary toilet Check a home oxygen evaluation in the morning. Possible the patient may require a larger oxygen contents are at home that can do up to 8 to 10 L. Patient is not in any distress currently. (2) Pneumonia due to COVID-19 virus: PLAN: Onset was 6 days ago. Patient is out of the window for remdesivir. The patient received IV dexamethasone the emergency room and will continue that for 9 more days for a total of 10 days. PLAN: Plan Stable chronic conditions: * Paroxysmal atrial fibrillation: Continue with apixaban and metoprolol * Chronic kidney disease stage IV: Chronic appears to be stable. Monitor closely. * CAD: Stable * Hyperlipidemia: Continue a statin * depression: Continue with sertraline * BPH: Continue with the tamsulosin * Chroni heart failure with preserved ejection fraction: EF 35% from 2 echoca rdiogram from June 22, 2020. Patient did have pulm hypertension on echocardiogram 63 mmHg. Continue furosemide and spironolactone. Currently patient is not volume overloaded at this time. VTE prophylaxis: Not indicated as patient is already on apixaban CODE STATUS: Addressed with patient. Patient was to be full code at this time. Charges/Coding Visit Charges Inpatient E&M: 78022 Init Hosp L2
[2022-03-27] MEDS: dexAMETHasone 10 MG/ML Vial 6 MG IV (15:41)
[2022-03-27] MEDS: Furosemide 40 MG Tablet PO (18:15)
[2022-03-27] MEDS: Tamsulosin HCl 0.4 MG Capsule PO (18:15)
[2022-03-27] MEDS: Ipratropium/Albuterol Sulfate 3 ML AMPUL.NEB INHALATION (19:29)
[2022-03-27] MEDS: APIXABAN 2.5 MG TABLET (WCH) PO (22:36)
[2022-03-27] MEDS: Sertraline 50 MG Tablet 75 MG PO (22:37)
[2022-03-27] MEDS: Metoprolol Tartrate 50 MG Tablet PO (22:38)
[2022-03-27] MEDS: Isosorbide Mononitrate 30 MG Tablet PO (22:38)
[2022-03-27] MEDS: Pantoprazole Sodium 20 MG Tablet PO (22:38)
[2022-03-27] MEDS: Pravastatin 40 MG Tablet PO (22:38)
[2022-03-27] MEDS: 0.9% Saline Lock 10 ML Syringe IV (22:38)
[2022-03-28] VITALS (16 sets, daily range): BP systolic 124–144; BP diastolic 66–77; PULSE 55–76; RESP 17–20; TEMP 36.4–36.9; O2SAT 86–97
[2022-03-28] MEDS: Ipratropium/Albuterol Sulfate 3 ML AMPUL.NEB INHALATION ×3 (06:54→19:57)
[2022-03-28] MEDS: Metoprolol Tartrate 50 MG Tablet PO ×2 (09:09→20:44)
[2022-03-28] MEDS: Spironolactone 25 MG Tablet PO (09:09)
[2022-03-28] MEDS: APIXABAN 2.5 MG TABLET (WCH) PO ×2 (09:09→20:45)
[2022-03-28] MEDS: dexAMETHasone 4 MG Tablet 6 MG PO (09:09)
[2022-03-28] MEDS: Furosemide 40 MG/4 ML Vial IV ×2 (09:09→17:30)
[2022-03-28] MEDS: Pantoprazole Sodium 20 MG Tablet PO ×2 (09:10→20:50)
--- NOTE | 2022-03-28 10:08 | PN.HOSP_ITS ---
Subjective Subjective Doing well, feeling better with the oxygen Objective Data Objective Data Vital Signs: Vital Signs Temp Pulse Resp BP Pulse Ox O2 Del Method O2 Flow Rate 98.4 F 72 18 134/67 H 94 Nasal Cannula 4.5 03/28/22 09:18 03/28/22 09:18 03/28/22 09:18 03/28/22 09:18 03/28/22 09:18 03/28/22 09:18 03/28/22 09:18 Oxygen Flow Rate (L/min) [ 6 AMBULATING with Oxygen #3] Oxygen Flow Rate (L/min) [ 5 AMBULATING with Oxygen #2] Oxygen Flow Rate (L/min) [ 4 AMBULATING with Oxygen #1] Oxygen Flow Rate (L/min) [At 4 REST with Oxygen] Oxygen Flow Rate (L/min) 4.5 Oxygen Delivery Method Nasal Cannula Weight: 172 lb Body Mass Index (BMI) 24.7 Intake & Output: Intake and Output for Last 24 Hours 03/27/22 03/28/22 03/29/22 03:59 03:59 03:59 Intake Total 1000 / 1000 Output Total 550 / 550 600 / 600 Balance -550 / -550 400 / 400 Lab / Micro Data Result Diagrams: 03/27/22 13:30 03/27/22 13:30 Labs: Laboratory Results - last 24 hr 03/27/22 13:30: Sodium 142, Potassium 4.5, Chloride 107, Carbon Dioxide 29.0, Anion Gap 6, BUN 50 H, Creatinine 1.68 H, Estim Creat Clear Calc 36.21, Est GFR (MDRD) Af Amer 51 L, Est GFR (MDRD) Non-Af 42 L, BUN/Creatinine Ratio 29.8 H, Glucose 91, Calcium 10.3 H, Total Bilirubin 0.90, AST 18, ALT 19, Alkaline Phosphatase 73, Lactate Dehydrogenase 145, Troponin I High Sens 11, C-React Prot Ext Range 22.40 H, Total Protein 7.2, Albumin 3.5, Globulin 3.7, Albumin/Globulin Ratio 0.9 03/27/22 13:30: Procalcitonin 0.13 H 03/27/22 13:30: WBC 4.4, RBC 4.12 L, Hgb 13.3, Hct 40.5, MCV 98.3 H, MCH 32.3 H, MCHC 32.8, RDW Std Deviation 47.8 H, RDW Coeff of Jamar 13.3, Plt Count 112 L, MPV 9.4, Immature Gran % (Auto) 0.500, Neut % (Auto) 60.6, Lymph % (Auto) 22.3, [place] % (Auto) 11.9 H, Eos % (Auto) 3.6, Baso % (Auto) 1.1 H, Absolute Neuts (auto) 2.7, Absolute Lymphs (auto) 0.99, Nucleated RBC % 0 03/27/22 13:30: Lactic Acid 1.0 Micro: Microbiology 03/27/22 13:35 Nasal Secretion SARS-CoV-2 Antigen (Rapid) - Final Radiography Diagnostic Testing: Radiology Impression Chest X-Ray 03/27/22 13:30 IMPRESSION: New patchy infiltrate in the right lower lobe. Stable pleural parenchymal changes at the left lung base. Electronically Signed: Jake Bazzi MD at 13:48 EST , Physical Exam Narrative General: Alert, Oriented x3, Cooperative, No apparent distress HEENT: Atraumatic, PERRLA, EOMI, Normocephalic Oral: Moist Mucosa Neck: Supple, No JVD Lungs: The, Normal air movement, No rhonchi, No wheeze, No rales Cardiovascular: Regular rate, Regular Rhythm, Normal S1, Normal S2, No murmurs Abdomen: Soft, Non Tender, Non-Distended, No Hepato-splenomegaly Extremities: No edema, Capillary Refill Less than 3 Seconds Skin: No rashes, No breakdown Musculoskeletal: No Tenderness to Palpation of Joints or Extremities Neurological: Cranial nerves II-XII grossly intact, Motor Exam 5/5 strength throughout, Sensory exam intact to light touch and pain Psych/Mental Status: Normal Affect, Appropriate Assessment & Plan Assessment/Plan (1) Acute and chronic respiratory failure with hypoxia: PLAN: The patient likely has changes due to his prior history of COVID-19 from 2019 as he was not on oxygen prior to that. Also does have COPD. That with his current bout of COVID-19 as pushed him over the edge. COPD is does not appear to be an exacerbation as he has no audible wheezing and does seem to have good air movement. Maintaining oxygen saturations on 4-1/2 L nasal cannula, will proceed with IV Lasix and repeat ambulation this afternoon Wean oxygen as able Continue with incentive spirometry (2) Pneumonia due to COVID-19 virus: PLAN: Onset was 6 days prior to admission. He has a the window for remdesivir however he does have chronic kidney disease so we will hold off at this time secondary to lack of evidence of mortality benefit. The patient received IV dexamethasone the emergency room and will continue that for 9 more days for a total of 10 days. PLAN: Plan Stable chronic conditions: * Paroxysmal atrial fibrillation: Continue with apixaban and metoprolol * Chronic kidney disease stage IV: Chronic appears to be stable. Monitor closely. * CAD: Stable * Hyperlipidemia: Continue a statin * depression: Continue with sertraline * BPH: Continue with the tamsulosin * Chroni heart failure with preserved ejection fraction: EF 35% from 2 echocardiogram from June 22, 2020. Patient did have pulm hypertension on echocardiogram 63 mmHg. Continue furosemide and spironolactone. We will transition his Lasix to IV given his COVID infection this might help with his breathing DVT: Eliquis Charges/Coding Visit Charges Inpatient E&M: 84988 Subs Hosp L2
--- NOTE | 2022-03-28 10:35 | CASEMGMT ---
Addendum entered by Dana Johnston 03/28/22 13:24: Verified with [employer], pt has a 10L concentrator at home. Original Note: SANDRA VASQUEZ Assessment: Face to Face with pt for initial transition planning/care coordination assessment. SANDRA VASQUEZ introduced self and role at [facility], pt voices understanding and consents to assessment. Pt is A/O x4 and answers all questions appropriately at this time. Pt sitting up in bed with at bedside in no distress with oxygen on. Care providers, pharmacy, and demographics verified/updated. Admitting Dx: COVID 19, hypoxia PCP:Evonne Specialists:Edward pultania; Aylin, cardio and [facility] Preferred Pharmacy: [facility] Insurance: [facility] Prescription Benefit: yes LNOK: Estrella Vann, ; Rossy Meraz, dtr Living Arrangements: Pt lives with in a single story home with 1 step to enter from the front and 3 steps to enter from the garage with a rail. Pt reports he is I in ADL's and denies concerns at home. Transportation: Pt drives self and denies concerns with transportation. DME/HHC/SNF: Pt has oxygen through [employer], he states it is ordered at 4L cont, will verify. Pt reports his concentrator goes up to 10. He has a portable tank in the room to go home on. Pt also has a pox at home. Pt has had [facility] HHC in the past and denies SNF stays. Pt states no concerns with going home at time of dc, agrees. Pt feels his strength is good. Pt states no further concerns/needs. CM to follow. Advised pt to ask CM if any further question/concerns/needs arise, voices understanding. Pt Goal: Home Plan: Home, follow for increased oxygen needs.
[2022-03-28] MEDS: Tamsulosin HCl 0.4 MG Capsule PO (17:30)
[2022-03-28] MEDS: Pravastatin 40 MG Tablet PO (20:43)
[2022-03-28] MEDS: Sertraline 50 MG Tablet 75 MG PO (20:44)
[2022-03-28] MEDS: Isosorbide Mononitrate 30 MG Tablet PO (20:45)
[2022-03-28] MEDS: Acetaminophen 500 MG Tablet 1000 MG PO (20:50)
[2022-03-29] VITALS (7 sets, daily range): BP systolic 105–117; BP diastolic 60–70; PULSE 61–71; RESP 17–18; TEMP 36.4–37.2; O2SAT 93–98
[2022-03-29 06:18] LABS: Anion Gap 9 (5-15); BUN 56 mg/dL (7-18); BUN/Creat Ratio 37.3 RATIO (10-20); Calcium,Total 10.4 mg/dL (8.5-10.1); Chloride 104 mmol/L (98-107); EST Glomerular Filtration Rate 48 mL/min (>60); Est Glom Filt Rate - Afr Amer 58 mL/min (>60); Estimated Creatinine Clearance 40.56 ml/min; Glucose 110 mg/dL (74-106); Potassium 4.2 mmol/L (3.5-5.1); Sodium Level 139 mmol/L (136-145)
[2022-03-29] MEDS: Ipratropium/Albuterol Sulfate 3 ML AMPUL.NEB INHALATION ×2 (07:29→13:28)
--- NOTE | 2022-03-29 09:29 | PN.HOSP_ITS ---
Subjective Subjective Doing well, no issues overnight. Maintaining oxygen sats on 4 L nasal cannula Objective Data Objective Data Vital Signs: Vital Signs Temp Pulse Resp BP Pulse Ox O2 Del Method O2 Flow Rate 97.5 F L 63 18 105/60 97 Nasal Cannula 4 03/29/22 02:52 03/29/22 07:31 03/29/22 07:31 03/29/22 02:52 03/29/22 07:31 03/29/22 07:31 03/29/22 07:31 Oxygen Flow Rate (L/min) [ 6 AMBULATING with Oxygen #3] Oxygen Flow Rate (L/min) [ 5 AMBULATING with Oxygen #2] Oxygen Flow Rate (L/min) [ 4.5 AMBULATING with Oxygen #1] Oxygen Flow Rate (L/min) [At 4.5 REST with Oxygen] Oxygen Flow Rate (L/min) 4 Oxygen Delivery Method Nasal Cannula Weight: 172 lb Body Mass Index (BMI) 24.7 Intake & Output: Intake and Output for Last 24 Hours 03/28/22 03/29/22 03/30/22 03:59 03:59 03:59 Intake Total 2000 / 2000 400 / 400 Output Total 550 / 550 3000 / 3000 800 / 800 Balance -550 / -550 -1000 / -1000 -400 / -400 Lab / Micro Data Result Diagrams: 03/27/22 13:30 03/29/22 05:19 Labs: Laboratory Results - last 24 hr 03/29/22 05:19: Sodium 139, Potassium 4.2, Chloride 104, Carbon Dioxide 26.0, Anion Gap 9, BUN 56 H, Creatinine 1.50 H, Estim Creat Clear Calc 40.56, Est GFR (MDRD) Af Amer 58 L, Est GFR (MDRD) Non-Af 48 L, BUN/Creatinine Ratio 37.3 H, Glucose 110 H, Calcium 10.4 H Micro: Microbiology 03/27/22 13:35 Nasal Secretion SARS-CoV-2 Antigen (Rapid) - Final SARS-CoV-2 (COVID 19) Physical Exam Narrative General: Alert, Oriented x3, Cooperative, No apparent distress HEENT: Atraumatic, PERRLA, EOMI, Normocephalic Oral: Moist Mucosa Neck: Supple, No JVD Lungs: Diminished, Normal air movement, No rhonchi, No wheeze, No rales Cardiovascular: Regular rate, Regular Rhythm, Normal S1, Normal S2, No murmurs Abdomen: Soft, Non Tender, Non-Distended, No Hepato-splenomegaly Extremities: No edema, Capillary Refill Less than 3 Seconds Skin: No rashes, No breakdown Musculoskeletal: No Tenderness to Palpation of Joints or Extremities Neurological: Cranial nerves II-XII grossly intact, Motor Exam 5/5 strength throughout, Sensory exam intact to light touch and pain Psych/Mental Status: Normal Affect, Appropriate Assessment & Plan Assessment/Plan (1) Acute and chronic respiratory failure with hypoxia: PLAN: The patient likely has changes due to his prior history of COVID-19 from 2019 as he was not on oxygen prior to that. Also does have COPD. That with his current bout of COVID-19 as pushed him over the edge. COPD is does not appear to be an exacerbation as he has no audible wheezing and does seem to have good air movement. Maintaining oxygen saturations on 4-1/2 L nasal cannula, will proceed with IV Lasix and repeat ambulation this afternoon Wean oxygen as able Continue with incentive spirometry (2) Pneumonia due to COVID-19 virus: PLAN: Onset was 6 days prior to admission. He is the window for remdesivir however he does have chronic kidney disease so we will hold off at this time secondary to lack of evidence of mortality benefit. The patient received IV dexamethasone the emergency room and will continue that for 9 more days for a total of 10 days. PLAN: Plan Stable chronic conditions: * Paroxysmal atrial fibrillation: Continue with apixaban and metoprolol * Chronic kidney disease stage 3a: Chronic appears to be stable. Monitor closely. * CAD status post CABG: Stable * Hyperlipidemia: Continue a statin * depression: Continue with sertraline * BPH: Continue with the tamsulosin * Chronic heart failure with preserved ejection fraction: EF 35% from 2 echocardiogram from June 22, 2020. Patient did have pulm hypertension on echocardiogram 63 mmHg. Continue furosemide and spironolactone. We will transition his Lasix to IV given his COVID infection this might help with his breathing DVT: Eliquis Charges/Coding Visit Charges Inpatient E&M: 58827 Subs Hosp L2
[2022-03-29] MEDS: dexAMETHasone 4 MG Tablet 6 MG PO (09:34)
[2022-03-29] MEDS: Metoprolol Tartrate 50 MG Tablet PO (09:34)
[2022-03-29] MEDS: Pantoprazole Sodium 20 MG Tablet PO (09:34)
[2022-03-29] MEDS: Furosemide 40 MG/4 ML Vial IV (09:35)
[2022-03-29] MEDS: APIXABAN 2.5 MG TABLET (WCH) PO (09:35)
[2022-03-29] MEDS: 0.9% Saline Lock 10 ML Syringe IV (09:35)
[2022-03-29] MEDS: Spironolactone 25 MG Tablet PO (09:35)
--- NOTE | 2022-03-29 13:52 | DCINST_ITS ---
Discharge Instructions Diet Discharge Diet: Low fat / Low cholesterol and 6 Cup Fluid Restriction Activity Discharge Activity: Return to Normal Activity Dressing / Incision Call your doctor if you observe: Fever of 101 or Higher, Shortness of breath, Dizziness, Fainting spells, Swelling in the ankles, Chest pain and Increased palpitations (irregular heartbeat) Follow Up Care Test Results: Test results from this visit will be discussed in further detail at your follow- up appointment, if applicable. Discharge Plan Admission Admit Date/Time: 03/28/22 15:53 Attending Provider: Dann Tee Primary Care Provider: Rosana Douglass Consulting Providers: Ilan Paulino Discharge Orders/Prescriptions Prescriptions: New dexamethasone 2 mg tablet 6 mg PO DAILY 7 Days Qty: 21 0RF Continued tamsulosin 0.4 mg capsule 0.4 mg PO DAILY Qty: 30 magnesium oxide 400 mg (241.3 mg magnesium) tablet 400 mg PO DAILY Qty: 90 3RF sertraline 50 mg tablet 75 mg PO QHS Label Comments: mood pravastatin 40 mg tablet 40 mg PO DAILY Qty: 90 3RF albuterol sulfate 1 INHALER inhaler 1 - 2 puff INHALATION Q4H PRN PRN (Reason: Wheezing) Label Comments: breathing acetaminophen 500 MG tablet 1,000 mg PO DAILY PRN PRN (Reason: Pain 1-10 Or Fever) Bevespi Aerosphere 9-4.8 mcg HFA aerosol inhaler 2 inh INHALATION BID Label Comments: Inhale 2 Puffs as instructed twice daily. spironolactone 50 mg tablet 25 mg PO DAILY Qty: 45 3RF metoprolol tartrate 50 mg tablet 50 mg PO BID Qty: 180 3RF furosemide 40 mg tablet 40 mg PO BID Qty: 180 3RF isosorbide mononitrate 30 mg tablet extended release 24 hr 30 mg PO QHS Qty: 90 3RF omeprazole 20 mg capsule,delayed release(DR/EC) 20 mg PO BID Qty: 180 3RF Eliquis 2.5 mg tablet 2.5 mg PO BID Qty: 180 3RF Referrals / Follow Up: Rosana Douglass DO [Primary Care Provider] - Within 1 Week Disposition Disposition (needs filled in before D/C Order can be placed): Home, Self Care
--- NOTE | 2022-03-29 13:57 | DS.PCM_ITS ---
Providers Date of Admission: 03/28/22 Primary Care Physician: Dr. Rosana Douglass DO Reason For Visit: COVID19. HYPOXIA. Diagnosis Discharge Diagnosis (1) Acute and chronic respiratory failure with hypoxia: Status: Chronic Code(s): J96.21 - Acute and chronic respiratory failure with hypoxia Plan: The patient likely has changes due to his prior history of COVID-19 from 2019 as he was not on oxygen prior to that. Also does have COPD. That with his current bout of COVID-19 as pushed him over the edge. COPD is does not appear to be an exacerbation as he has no audible wheezing and does seem to have good air movement. Maintaining oxygen saturations on 4-1/2 L nasal cannula, will proceed with IV Lasix and repeat ambulation this afternoon Wean oxygen as able Continue with incentive spirometry (2) Pneumonia due to COVID-19 virus: Status: Acute Code(s): U07.1 - COVID-19; J12.82 - Pneumonia due to coronavirus disease 2018 Plan: Onset was 6 days prior to admission. He is the window for remdesivir however he does have chronic kidney disease so we will hold off at this time secondary to lack of evidence of mortality benefit. The patient received IV dexamethasone the emergency room and will continue that for 9 more days for a total of 10 day s. Plan Stable chronic conditions: * Paroxysmal atrial fibrillation: Continue with apixaban and metoprolol * Chronic kidney disease stage 3a: Chronic appears to be stable. Monitor closely. * CAD status post CABG: Stable * Hyperlipidemia: Continue a statin * depression: Continue with sertraline * BPH: Continue with the tamsulosin * Chronic heart failure with preserved ejection fraction: EF 35% from 2 echocardiogram from June 22, 2020. Patient did have pulm hypertension on echocardiogram 63 mmHg. Continue furosemide and spironolactone. We will tr ansition his Lasix to IV given his COVID infection this might help with his breathing DVT: Eliquis Medications at Discharge Home Medications albuterol sulfate 90 mcg/actuation aerosol inhaler 1 - 2 puff inhalation Q4H PRN PRN Wheezing 12/04/15 tamsulosin 0.4 mg capsule 0.4 mg PO DAILY prostate #30 caps 09/16/18 acetaminophen 500 mg tablet 1,000 mg PO DAILY PRN PRN Pain 1-10 Or Fever 12/23/19 sertraline 50 mg tablet 75 mg PO QHS depression 11/14/20 magnesium oxide 400 mg (241.3 mg magnesium) tablet 400 mg PO DAILY #90 tabs spironolactone 50 mg tablet 25 mg PO DAILY #45 tabs 10/14/21 metoprolol tartrate 50 mg tablet 50 mg PO BID #180 tabs 10/21/21 furosemide 40 mg tablet 40 mg PO BID fluid #180 tabs 12/23/21 isosorbide mononitrate 30 mg tablet,extended release 24 hr 30 mg PO QHS heart #90 tabs 12/23/21 omeprazole 20 mg capsule,delayed release 20 mg PO BID gerd #180 caps 12/23/21 apixaban 2.5 mg tablet (Eliquis) 2.5 mg PO BID #180 tabs 01/20/22 pravastatin 40 mg tablet 40 mg PO DAILY cholesterol #90 tabs 01/20/22 glycopyrrolate 9 mcg-formoterol 4.8 mcg HFA aerosol inhaler (Bevespi Aerosphere) 2 inh inhalation BID COPD 03/27/22 dexamethasone 2 mg tablet 6 mg PO DAILY 7 days #21 tabs 03/29/22 Hospital Course Operations None Procedures None Summary of Care Provided Minutes Spent on Discharge: 35 Hospital Course: Per HPI: RICKY BURNS, is a 81 M who presents with shortness of breath.? Patient is on chronic oxygen due to COPD as well as his prior COVID exposure and hospitalization in 2019.? In the fall 2019, patient was hospitalized for about 2 weeks and was discharged with oxygen which she has been on ever since.? Patient has been doing well but over the past 6 days, he has progressively gotten more short of breath.? More short of breath with exertion.? Presented to the emergency room and had a work-up that was fairly unremarkable, however, his COVID-19 test came back positive.? To try to ambulate him and he dropped into the 70s on 6 L nasal cannula.? The hospital service was contacted for ad mission.? Patient has since been vaccinated for COVID-19 from his hospitalization in 2019.? Patient's is currently sick with COVID-19.? Patient states that he does not feel sick other than being short of breath. Hospital Course: 1. Acute on chronic hypoxic respiratory failure secondary to recurrent COVID-19 pneumonia?81-year-old male who was treated for COVID back in June 2020 presents to the hospital with recurrent COVID. He is about 7 days since symptom onset. Given his kidney disease he was not started on remdesivir however he was started on Decadron as well as transitioning his p.o. Lasix to IV Lasix for better diuresis. Today he was able to ambulate on 4 L nasal cannula and he is on home oxygen with a concentrator that goes up to 10 L but his home O2 at baseline is 4 L at rest and exertion with 6 L at night. I discussed with him the possibility for discharge today he expressed understanding of the risk benefits of going home and would like to go home today. I did discuss with him the possibility of of staying for 1 more day to have some more diuresis but he felt that he would do better at home, and his concurred. We will plan to discharge him with 7 more days of Decadron and I do recommend outpatient follow-up with his PCP in 3 to 5 days as he will complete quarantine on Thursday. 2. Paroxysmal A-fib, chronic kidney disease stage IIIa, CAD status post CABG, hypertension, hyperlipidemia, BPH, depression, chronic systolic CHF, pulmonary hypertension are all chronic medical conditions which complicate his care. His home medications were continued where appropriate Weight / BMI Weight Weight: 172 lb Body Mass Index (BMI) 24.7 ABG / Lab / Microbiology Data Result Diagrams: 03/27/22 13:30 03/29/22 05:19 Laboratory: Laboratory Results - last 24 hr 03/29/22 05:19: Sodium 139, Potassium 4.2, Chloride 104, Carbon Dioxide 26.0, Anion Gap 9, BUN 56 H, Creatinine 1.50 H, Estim Creat Clear Calc 40.56, Est GFR (MDRD) Af Amer 58 L, Est GFR (MDRD) Non-Af 48 L, BUN/Creatinine Ratio 37.3 H, Glucose 110 H, Calcium 10.4 H Microbiology: Microbiology 03/27/22 13:40 Blood Culture (Wb) - Anticubital Right Blood Culture - Preliminary No growth in 48 hours. 03/27/22 13:30 Blood Culture (Wb) - Anticubital Left Blood Culture - Preliminary No growth in 48 hours. 03/27/22 13:35 Nasal Secretion SARS-CoV-2 Antigen (Rapid) - Final SARS-CoV-2 (COVID 19) D/C Instructions Discharge Diet: Low fat / Low cholesterol and 6 Cup Fluid Restriction Call your doctor if you observe: Fever of 101 or Higher, Shortness of breath, Dizziness, Fainting spells, Swelling in the ankles, Chest pain and Increased palpitations (irregular heartbeat) Meaningful Use Info Meaningful Use Diagnoses (Choose all that apply): None applicable Discharge Plan Admission Admit Date/Time: 03/28/22 15:53 Attending Provider: Dann Tee Primary Care Provider: Rosana Douglass Consulting Providers: Ilan Paulino Discharge Orders/Prescriptions Prescriptions: New dexamethasone 2 mg tablet 6 mg PO DAILY 7 Days Qty: 21 0RF Continued tamsulosin 0.4 mg capsule 0.4 mg PO DAILY Qty: 30 magnesium oxide 400 mg (241.3 mg magnesium) tablet 400 mg PO DAILY Qty: 90 3RF sertraline 50 mg tablet 75 mg PO QHS Label Comments: mood pravastatin 40 mg tablet 40 mg PO DAILY Qty: 90 3RF albuterol sulfate 1 INHALER inhaler 1 - 2 puff INHALATION Q4H PRN PRN (Reason: Wheezing) Label Comments: breathing acetaminophen 500 MG tablet 1,000 mg PO DAILY PRN PRN (Reason: Pain 1-10 Or Fever) Bevespi Aerosphere 9-4.8 mcg HFA aerosol inhaler 2 inh INHALATION BID Label Comments: Inhale 2 Puffs as instructed twice daily. spironolactone 50 mg tablet 25 mg PO DAILY Qty: 45 3RF metoprolol tartrate 50 mg tablet 50 mg PO BID Qty: 180 3RF furosemide 40 mg tablet 40 mg PO BID Qty: 180 3RF isosorbide mononitrate 30 mg tablet extended release 24 hr 30 mg PO QHS Qty: 90 3RF omeprazole 20 mg capsule,delayed release(DR/EC) 20 mg PO BID Qty: 180 3RF Eliquis 2.5 mg tablet 2.5 mg PO BID Qty: 180 3RF Referrals / Follow Up: Rosana Douglass DO [Primary Care Provider] - Within 1 Week Disposition Disposition (needs filled in before D/C Order can be placed): Home, Self Care Charges/Coding Visit Charges Inpatient E&M: 41971 Disch Hosp >30min
== END 2022-03-29 15:29 | disposition home or self-care (01) | DRG 177 ==
LOC: ED 14:53 → MS3 15:00
PROVIDERS: Emergency Provider Emergency Medicine; PCP Internal Medicine; Visit Provider Family Medicine
DX: U07.1 COVID-19 (principal); J96.21 Acute and chronic respiratory failure with hypoxia; J12.82 Pneumonia due to coronavirus disease 2019; N18.4 Chronic kidney disease, stage 4 (severe); I13.0 Hypertensive heart and chronic kidney disease with heart failure and stage 1 through stage 4 chronic kidney disease, or unspecified chronic kidney disease; J44.0 Chronic obstructive pulmonary disease with (acute) lower respiratory infection; I50.32 Chronic diastolic (congestive) heart failure; I27.20 Pulmonary hypertension, unspecified; I48.0 Paroxysmal atrial fibrillation; I27.21 Secondary pulmonary arterial hypertension; I25.10 Atherosclerotic heart disease of native coronary artery without angina pectoris; E78.5 Hyperlipidemia, unspecified; K21.00 Gastro-esophageal reflux disease with esophagitis, without bleeding; F32.A Depression, unspecified; Z79.01 Long term (current) use of anticoagulants; Z87.891 Personal history of nicotine dependence; Z99.81 Dependence on supplemental oxygen; Z86.16 Personal history of COVID-19
CPT/HCPCS: 36415; 71045; 80048; 80053; 83605; 83615; 84145; 84484; 85025; 86140; 87040; 87811; 93005; 94640; 94668; 94762; 99252; 99283; A4216; G0463; J1940

== ENCOUNTER → 2022-05-06 | Outpatient (CLI) | payer MEDICARE, OTHER, SELFPAY ==
[2022-05-06 15:46] LABS: Hematocrit 40.5 % (40-54); Hemoglobin 13.7 g/dL (13.0-16.5); Mean Corp Hgb Conc 33.8 g/dL (32-36); Mean Corpuscular Hgb 33.7 pg (27.0-32.0); Mean Corpuscular Volume 99.5 fL (80-94); Mean Platelet Vol. 9.6 fl (6.2-12.0); Platelet Count 135 K/mm3 (150-450); RBC Distribution Width CV 15.7 % (11.6-14.6); RBC Distribution Width SD 56.7 fl (35.1-43.9); Red Blood Count 4.07 M/mm3 (4.6-6.2); White Blood Count 6.2 K/mm3 (4.4-11.0)
[2022-05-06 16:02] LABS: Anion Gap 7 (5-15); BUN 39 mg/dL (7-18); BUN/Creat Ratio 24.2 RATIO (10-20); Calcium,Total 10.6 mg/dL (8.5-10.1); Chloride 106 mmol/L (98-107); Creatinine, Serum 1.61 mg/dL (0.70-1.30); EST Glomerular Filtration Rate 44 mL/min (>60); Est Glom Filt Rate - Afr Amer 53 mL/min (>60); Glucose 99 mg/dL (74-106); Potassium 4.3 mmol/L (3.5-5.1); Sodium Level 140 mmol/L (136-145)
== END | disposition home or self-care (01) ==
LOC: LAB 15:34
PROVIDERS: PCP Internal Medicine; Visit Provider Internal Medicine Cardiovascular Disease
DX: R51.9 Headache, unspecified (principal); R42 Dizziness and giddiness; N18.9 Chronic kidney disease, unspecified; Z79.899 Other long term (current) drug therapy
CPT/HCPCS: 36415; 80048; 85027

== ENCOUNTER → 2022-05-20 | Outpatient (CLI) | payer MEDICARE, OTHER, SELFPAY ==
--- NOTE | 2022-05-20 11:00 | RAD_ITS ---
STUDY: X-RAY - CERVICAL SPINE REASON FOR EXAM: Male, 81 years old. HEADACHE TECHNIQUE: 3 view(s) of the cervical spine were obtained. COMPARISON: None FINDINGS: There are degenerative changes of the anterior atlantoaxial articulation. Normal odontoid process. There is straightening of the normal cervical lordosis. There is multi-level endplate spondylosis. There is multi-level degenerative disc disease with multilevel disc space narrowing. There is multi-level osseous foraminal stenosis. There are atherosclerotic vascular calcifications of the carotid arteries. RAD/Cerv Spine 2 or 3 Views IMPRESSION: Multilevel degenerative change of the cervical spine. No visualized acute fracture. If symptoms persist recommend consideration for follow-up MRI if clinically appropriate. Electronically Signed: Mervat Newman MD at 23:33 EDT ,
== END | disposition home or self-care (01) ==
LOC: MTRAD 10:59
PROVIDERS: PCP Internal Medicine; Referring Provider Internal Medicine; Visit Provider Internal Medicine
DX: G44.86 Cervicogenic headache (principal)
CPT/HCPCS: 72040

== ENCOUNTER 2022-06-26 08:30 | Outpatient (RCR) | payer MEDICARE, OTHER, SELFPAY ==
--- NOTE | 2022-06-05 10:04 | HP.PTEVAL_ITS ---
Patient's Visit Information RICKY BURNS is a 81 year old M referred to Physical Therapy by Dr. Rosana Douglass DO with a diagnosis of ROB and cervicogenic pain. Date of Evaluation: 06/03/22 Physical Therapist: Driss Haque DPT - Visit Plan Frequency: 2x /Week Duration: 4 Weeks Plan: Start with cervical retraction, US to L side of sub acromial space. Add in cervical ROM as tolerated, ie SNAGs. progressing to deep cervical strengthening. Add in thoracic postural strengthening. - Subjective Pt. is here today for his initial evaluation with diagnosis of HAs and cervicalgia. Pt. reports overall having a decent amount of pain at B sides of cervical spine and into his sub occipital region and down his B UT. Pt. reports L is worse than R. Pt. denies N/T and no radicular symptoms. No weakness in BUEs. Pt. does use supplemental O2 L4 at rest and occassional increase to 5L with activities. Due to his breathing he has to position his head up in bed to breath better. Pt. reports no activities seem to make his symptoms worse, but has constant pain while up and moving. Pain is better with use of tylenol. Pt. is hopeful to reduce symptoms in order to get back to all recreational activities without limitations. - Pain Cervical spine Pain Intensity (Out of 10): 3 Pain Intensity Range: 0, 10 - Objective POSTURE: Pt. has FH posture in sitting and standing. Pt. has rounded shoulders with increased thoracic kyphosis as well. PALPATION: pt. is tender at B sub occipital region, L side worse than R. NERUO: normal throughout BUEs and LEs. ROM: cervical spine: flexion nil loss increase NW, ext nil/min loss NE, SB min loss bilat NE, rotation min loss bilaterally, Min loss in B shoulder ROM. No pain iwth shoulder ROM, mild increase NW with cervical rotation. MMT: 5/5 throughout. BUEs. 5/5 cervical iso. 4/5 deep neck flexors. - Balance/Special Test Scores Oswestry Neck Score: 10 - Goals Goal 1:: LTG: pt. to be I with HEP. Goal Time Frame: 4-6 Weeks Goal 2:: STG: Pt. to sleep throughout the night without increase in symptoms. Goal Time Frame: 2 Weeks Goal 3:: LTG: Pt. to have increased cervical ROM by 25% in all directions without increase in symptoms. Goal Time Frame: 4-6 Weeks Goal 4:: LTG: Pt. to have reduced HS pain to 0-2/10 pain throughout the day. Goal Time Frame: 4-6 Weeks Goal 5:: LTG: Pt. to have no sub occipital pain in L side with all daily activities. Goal Time Frame: 4-6 Weeks - Rehabilitation Potential Physical Therapy Diagnosis: Pt. has signs and symptoms consistent with HAs and cervicogenic pain, L worse than R. Pt. has decent ROM, but has FH posture and sub occipital pain. pt. has FH posture and had small reduction in symptoms with retraction into pillow. Traction also provided some relief. Pt. would benefit from PT to work on ROM, reduce sub occipital tightness and reduce pain. Rehabilitation Potential: Excellent - Anticipated Interventions Patient/Client Instruction: Educate patient on: Condition, Plan of Care, Risk Factors, Benefits of Fitness Program For the Purpose of:: To foster healthy habits, To improve decision making, To facilitate caregiver knowledge, To improve self management, To prevent re- injury, To improve ability to perform tasks related to life management Therapeutic Exercise to Include: Strength training, Power training, Endurance training, Passive ROM, Active ROM For the Purpose of:: To decrease pain, To decrease swelling/inflammation, To improve nutrient delivery to tissue, To increase oxygenation perfusion, To improve muscle performance and motor function, To improve ability to perform ADL's Manual Therapy Techniques to Include: Mobilization, Soft tissue mobilization For the Purpose of:: To decrease pain, To decrease swelling/inflammation, To increase ROM, To improve nutrient delivery to tissue, To increase oxygenation perfusion Ultrasound (thermal/non thermal): Yes For the Purpose of:: To decrease pain, To decrease swelling/inflammation, To increase ROM Thank you for the opportunity to evaluate your patient. For Medicare and Medicare HMO plans, please review the plan of care and approve it. It will need to be FAXED BACK to us at [phone] for Medicare purposes. For Medicare only, by signing this I certify the plan of care. Please let me know if there are questions or concerns regarding this plan of care. Physician Si gnature: Date:
--- NOTE | 2022-06-26 09:20 | HP.PTREVAL_ITS ---
Dr. Rosana Douglass, DO, It has been my pleasure to treat RICKY BURNS over the last 7 visits for ROB and cervicogenic pain. Please see the progress note below for an update on the physical therapy plan of care! Subjective: Pt. reports no ROB currently. He reports not having a ROB for 5-6 days now. Pt. is pleased. He reports being 90% better overall. Objective/Function: ROM: CERVICAL SPINE: flexion nil loss, ext min loss, rotation min loss, SB mod loss- NO effect in all ranges. MMT: 5/5 throughout B shoulders, cervical spine good isometrics throughout. Pt. to pleased with progress. Pt. did well thus far with exercises. Pt. is now to trial his HEP including SNAGs, mid trap and LAE with bands Plan Plan: Pt. is to complete all of his exercises on his own at this point in time. He has one appt. scheduled in 3 weeks. If doing well he will cancel and DC back to physician. Balance/Gait/Functional tests - Balance/Special Test Scores Oswestry Neck Score: 1 Goals Goal 1:: LTG: pt. to be I with HEP. Goal Time Frame: 4-6 Weeks Goal Progress: Goal Met Goal 2:: STG: Pt. to sleep throughout the night without increase in symptoms. Goal Time Frame: 2 Weeks Goal Progress: Goal Met Goal 3:: LTG: Pt. to have increased cervical ROM by 25% in all directions without increase in symptoms. Goal Time Frame: 4-6 Weeks Goal Progress: Goal Met Goal 4:: LTG: Pt. to have reduced HS pain to 0-2/10 pain throughout the day. Goal Time Frame: 4-6 Weeks Goal Progress: Goal Met Goal 5:: LTG: Pt. to have no sub occipital pain in L side with all daily activities. Goal Time Frame: 4-6 Weeks Goal Progress: Goal Met Anticipated Interventions Patient/Client Instruction: Educate patient on: Condition, Plan of Care, Risk Factors, Benefits of Fitness Program For the Purpose of:: To foster healthy habits, To improve decision making, To facilitate caregiver knowledge, To improve self management, To prevent re- injury, To improve ability to perform tasks related to life management Therapeutic Exercise to Include: Strength training, Power training, Endurance training, Passive ROM, Active ROM For the Purpose of:: To decrease pain, To decrease swelling/inflammation, To improve nutrient delivery to tissue, To increase oxygenation perfusion, To improve muscle performance and motor function, To improve ability to perform ADL's Manual Therapy Techniques to Include: Mobilization, Soft tissue mobilization For the Purpose of:: To decrease pain, To decrease swelling/inflammation, To inc rease ROM, To improve nutrient delivery to tissue, To increase oxygenation perfusion Ultrasound (thermal/non thermal): Yes For the Purpose of:: To decrease pain, To decrease swelling/inflammation, To increase ROM Please do not hesitate to contact me at [phone] by phone or if you have questions or concerns regarding this new plan of care! Sincerely, VALENTIN GrossT
== END 2022-06-26 19:00 | disposition home or self-care (01) ==
LOC: PT 08:30
PROVIDERS: PCP Internal Medicine; Referring Provider Internal Medicine; Visit Provider Internal Medicine
DX: G44.86 Cervicogenic headache (principal)
CPT/HCPCS: 97035; 97110; 97140; 97164

== ENCOUNTER 2022-10-18 13:16 | Inpatient (IN) | payer MEDICARE, OTHER, SELFPAY ==
[2022-10-18] VITALS (12 sets, daily range): BP systolic 118–157; BP diastolic 70–85; PULSE 68–98; RESP 17–24; TEMP 36.2–36.8; O2SAT 84–96; BMI 28.0; BMI 26.5
--- NOTE | 2022-10-18 13:31 | RAD_ITS ---
STUDY: X-RAY CHEST REASON FOR EXAM: Male, 82 years old. shortness of breath TECHNIQUE: Single AP portable view of the chest. COMPARISON: 03/27/2022 FINDINGS: Sternotomy wires are midline. Mild patchy airspace disease overlies the right lower lobe. Calcified granulomatous nodules are present similar to prior exam. There is no demonstrated pleural abnormality. Normal size heart. Normal mediastinum and babak. Normal visualized pulmonary arteries. Normal visualized aortic arch and descending thoracic aorta. There is demineralization of the osseous structures. Normal visualized ribs, clavicles, and shoulders. There is no demonstrated abnormality of the visualized soft tissue structures of the upper abdomen. RAD/Chest PA and Lateral IMPRESSION: Superimposed chronic interstitial markings with granular right lower lobe airspace disease not excluded. Similar calcified granulomatous nodules of the right lower lung. Electronically Signed: Rommel Amaya DO at 15:43 EDT ,
--- NOTE | 2022-10-18 13:31 | EKG12_ITS ---
Test Reason : SOB Blood Pressure : / mmHG Vent. Rate : 065 BPM Atrial Rate : 065 BPM P-R Int : 148 ms QRS Dur : 102 ms QT Int : 430 ms P-R-T Axes : -14 234 016 degrees QTc Int : 447 ms Sinus rhythm with Premature supraventricular complexes and with occasional Premature ventricular comp lexes Right superior axis deviation Pulmonary disease pattern Abnormal ECG Confirmed by NEPTALI BAUMAN ([id number]), science editor BRENTON QUINTEROS ([id number]) on 10/31/2022 2:03:32 PM Referred By: Confirmed By:NEPTALI BAUMAN
[2022-10-18 13:40] LABS: Absolute Lymphocyte Count 1.09 X10^3/uL (0.83-4.51); Absolute Neutrophil Count 3.5 X10^3/uL (2.0-7.7); Basophil# 0.04 X10^3/uL; Basophil% 0.7 % (0-1); Eosinophil# 0.11 X10^3/uL; Eosinophils% 2.1 % (0-5); Hematocrit 41.6 % (40-54); Hemoglobin 13.3 g/dL (13.0-16.5); Lymphocyte # 1.09 X10^3/ul (0.83-4.51); Lymphocyte % 20.3 % (19-41); Mean Corpuscular Hgb 32.1 pg (27.0-32.0); Mean Corpuscular Volume 100.5 fL (80-94); Mean Platelet Vol. 10.2 fl (6.2-12.0); Monocyte# 0.55 X10^3/uL; Monocyte% 10.3 % (0-10); NRBC Flagged by Analyzer 0 % (0-5); Neutrophil # 3.53 X10^3/uL (2.7-7.7); Neutrophil % 65.9 % (47-70); Platelet Count 118 K/mm3 (150-450); RBC Distribution Width CV 12.8 % (11.6-14.6); RBC Distribution Width SD 47.8 fl (35.1-43.9); Red Blood Count 4.14 M/mm3 (4.6-6.2); White Blood Count 5.4 K/mm3 (4.4-11.0)
[2022-10-18 13:57] LABS: Anion Gap 7 (5-15); BUN 26 mg/dL (7-18); Calcium,Total 10.3 mg/dL (8.5-10.1); Chloride 110 mmol/L (98-107); Creatinine, Serum 1.63 mg/dL (0.70-1.30); EST Glomerular Filtration Rate 43 mL/min (>60); Est Glom Filt Rate - Afr Amer 53 mL/min (>60); Glucose 96 mg/dL (74-106); Potassium 3.7 mmol/L (3.5-5.1); Sodium Level 141 mmol/L (136-145); Troponin-I HS (w/2H Reflex) 14 pg/mL (3.0-78.0)
[2022-10-18 14:00] LABS: BNP,B-Type NATRIURETIC PEPTIDE 353.2 pg/mL (0-100)
--- NOTE | 2022-10-18 14:09 | EDS_ITS ---
<Statement entered by Chayo Whittaker MD - 10/18/22 16:46> I have personally performed a face to face assessment of the patient and have reviewed the ANA CRISTINA Note. Patient presents secondary to increased shortness of breath. He has a history of COPD and has required home oxygen use since having COVID a couple years ago. He is normally on 4 L. He reports increased shortness of breath for the past week especially with any form of exertion. He states he will get some slight tightness in his lower chest with exertion. He denies cough or wheezing. No fever. Patient sitting upright in bed no acute distress. Head and neck examination unremarkable. Heart is regular rate and rhythm. Lung sounds are slightly diminished bilaterally with no appreciable wheezing. No evidence of respiratory distress sitting at rest. Abdomen is soft and nontender. Lab work obtained and largely unremarkable. BNP is slightly elevated. Troponin negative. EKG reveals no ischemia. Chest x-ray per my interpretation reveals questionable early infiltrate versus scar tissue. COVID and influenza test is negative. At this time patient is on 7 L high flow nasal cannula and satting in the mid 90s. He states as long as he is sitting at rest he is comfortable. Patient was discussed with hospitalist. We will initiate steroids and antibiotics given his underlying COPD. HPI History of Present Illness Chief Complaint: Shortness of Breath Narrative Narrative: Patient is 82-year-old male who is normally on 4 L of nasal cannula oxygen secondary to COPD as well as COVID in 2019. Patient also has history of chronic kidney disease, atrial fibrillation on Eliquis who is not many doses presents the emergency department for worsening shortness of breath, much worse on exertion. Patient states that he can sit in his chair and when he is not moving his fine, any movement, causes him to become increasingly shortness of breath. Patient states that he has cranked up his oxygen to 8 L. Patient was 84% here on his 4 L. Patient states he does have a slight cough, denies any weight gain. Denies any fever or chills. He is here with his who also states that she is concerned because he is not breathing properly [facility] Medical History (Updated 10/18/22 @ 16:10 by REJI Case) (HFpEF) heart failure with preserved ejection fraction Acute hypoxemic respiratory failure Aspiration pneumonia Atherosclerotic heart disease of [place] coronary artery without angina pectoris Bilateral pneumonia Bladder cancer Carotid bruit CKD (chronic kidney disease) stage 3, GFR 30-59 ml/min COPD (chronic obstructive pulmonary disease) COVID-19 (11/2019) Diverticulosis Essential (primary) hypertension GERD with esophagitis History of nephrolithiasis HLD (hyperlipidemia) Hypoxia Lung cancer Persistent atrial fibrillation (11/2019) Pulmonary nodules Renal calculi Secondary pulmonary arterial hypertension Sepsis Traumatic hematoma of right forearm Home Medications albuterol sulfate 90 mcg/actuation aerosol inhaler 1 - 2 puff inhalation Q4H PRN PRN Wheezing 12/04/15 [History Last Taken 03/27/22] tamsulosin 0.4 mg capsule 0.4 mg PO DAILY prostate #30 caps 09/16/18 [History Last Taken 03/26/22] acetaminophen 500 mg tablet 1,000 mg PO DAILY PRN PRN Pain 1-10 Or Fever 12/23/19 [History Last Taken 03/27/22] sertraline 50 mg tablet 75 mg PO QHS depression 11/14/20 [History Last Taken 03/26/22] magnesium oxide 400 mg (241.3 mg magnesium) tablet 400 mg PO DAILY #90 tabs 07/16/21 [Rx Last Taken 03/26/22] isosorbide mononitrate 30 mg tablet,extended release 24 hr 30 mg PO QHS heart #90 tabs 12/23/21 [Rx Last Taken 03/26/22] omeprazole 20 mg capsule,delayed release 20 mg PO BID gerd #180 caps 12/23/21 [Rx Last Taken 03/27/22] apixaban 2.5 mg tablet (Eliquis) 2.5 mg PO BID #180 tabs 01/20/22 [Rx Last Taken 03/27/22] pravastatin 40 mg tablet 40 mg PO DAILY cholesterol #90 tabs 01/20/22 [Rx Last Taken 03/27/22] glycopyrrolate 9 mcg-formoterol 4.8 mcg HFA aerosol inhaler (Bevespi Aerosphere) 2 inh inhalation BID COPD 03/27/22 [History Last Taken 03/26/22] metoprolol tartrate 25 mg tablet 25 mg PO BID #180 tabs 07/17/22 [Rx Last Taken Unknown] prednisone 5 mg tablet 7.5 mg PO DAILY 07/17/22 [History Last Taken Unknown] furosemide 40 mg tablet 40 mg PO DAILY fluid #180 tabs 09/01/22 [Rx Last Taken Unknown] spironolactone 25 mg tablet 12.5 mg (1/2 x 25 mg) PO DAILY #45 tabs 09/09/22 [Rx Last Taken Unknown] Allergy/AdvReac Type Severity Reaction Status Date / Time No Known Allergies Allergy Verified 07/17/22 10:50 Family History Mother Cancer Lung CA Brother Diabetes Surgical History H/O coronary artery bypass surgery (07/20/03) History of left heart catheterization (LHC) (10/18/12) History of lithotripsy (02/2019) History of lobectomy of lung History of tonsillectomy History of transurethral resection of prostate (06/03/06) Social History (Updated 10/18/22 @ 13:24 by Geetha Bernard) household members: spouse current occupational status: retired Smoking Status: Former smoker alcohol intake: current alcohol intake frequency: a few times a week Alcohol type: wine substance use type: does not use caffeine: Yes Type: coffee Number of servings: 3 what type of physical activity do you participate in: none seatbelt use: always do you feel safe at home: Yes ROS ROS ED ROS Narrative Constitutional: Negative for fever, chills, weight loss. Positive for generalized weakness, fatigue Eyes: Negative for vision loss, vision change, double vision ENT: Negative for any sore throat, ear pain, congestion Cardiovascular: Negative for any chest pain, tightness, palpitations Respiratory: Negative for any sputum production, hemoptysis. Positive for cough, dyspnea, dyspnea on exertion, orthopnea Gastrointestinal: Negative for any abdominal pain, nausea, vomiting, diarrhea, constipation, blood in stool, blood in vomit : Negative for any urinary frequency, dysuria, retention, blood in urine Muscle skeletal: Negative for any muscle joint pain, stiffness, myalgias, arthralgias, neck pain, back pain Neurological: Negative for any headache, syncope, numbness or tingling, dizziness Skin: Negative for any rashes, lumps, itching, abrasions, lacerations Psychiatric: Negative for any depression, anxiety, stress, suicidal ideation, homicidal ideation Hematologic: Negative for any easy bruising, excessive bruising, easy bleeding Allergies: Negative for any eczema, hives, rash EXAM Physical Exam Narrative Exam Narrative: Vital signs reviewed. Patient on 4 L nasal cannula was 84%. Patient was placed on 6 L. Once at rest, patient was now 191 and 92%. Patient does have slight conversational dyspnea. Looks nontoxic. HEET: Head normocephalic atraumatic, TMs clear bilaterally. Posterior pharynx is clear, moist mucous membranes. Nares clear bilaterally. Neck: Supple with no lymphadenopathy or tenderness. No signs of meningismus, negative jolt sign. Cardiac: Regular rate and rhythm no murmurs gallops or rubs, equal peripheral pulses bilaterally. Respiratory: Lungs clear to auscultation bilaterally. No chest tenderness. Abdomen: Soft, nontender, nondistended. No abdominal bruit or pulsatile masses. No hepatosplenomegaly Extremities: No peripheral edema, no signs of gross trauma or deformity. Active full range of motion of all extremities. Neuro: Cranial nerves II through XII intact, no focal neurological deficits. Skin: Clean dry and intact with no rash, purpura, petechiae, vesicles or pustules. Backs/flank: No CVA tenderness, no midline spinal tenderness, no deformity. Psych: Normal mood and affect. No SI, HI or acute psychosis. Const Vital Signs: 10/18/22 13:23 10/18/22 13:39 10/18/22 13:18 Temperature 97.1 F L Temperature Source Temporal Pulse Rate 70 82 Respiratory Rate 18 24 H Respiratory Effort Non-Labored Short of Breath Respiratory Pattern Tachypnea Blood Pressure 138/70 H 118/70 Blood Pressure Mean 92 86 Pulse Ox 91 84 Oxygen Delivery Method Nasal Cannula Nasal Cannula Nasal Cannula Oxygen Flow Rate (L/min) 5 6 6 10/18/22 15:13 Temperature Temperature Source Pulse Rate Respiratory Rate Respiratory Effort Respiratory Pattern Blood Pressure Blood Pressure Mean Pulse Ox 92 Oxygen Delivery Method High Flow Oxygen Flow Rate (L/min) 7 Positive well nourished and well developed General Appearance ED: well developed MDM MDM Lab Data Labs: Laboratory Results - last 24 hr 10/18/22 13:30 WBC 5.4 RBC 4.14 L Hgb 13.3 Hct 41.6 MCV 100.5 H MCH 32.1 H MCHC 32.0 RDW Std Deviation 47.8 H RDW Coeff of Jamar 12.8 Plt Count 118 L MPV 10.2 Immature Gran % (Auto) 0.700 Neut % (Auto) 65.9 Lymph % (Auto) 20.3 [place] % (Auto) 10.3 H Eos % (Auto) 2.1 Baso % (Auto) 0.7 Absolute Neuts (auto) 3.5 Absolute Lymphs (auto) 1.09 Nucleated RBC % 0 Sodium 141 Potassium 3.7 Chloride 110 H Carbon Dioxide 24.0 Anion Gap 7 BUN 26 H Creatinine 1.63 H Estim Creat Clear Calc 36.70 Est GFR (MDRD) Af Amer 53 L Est GFR (MDRD) Non-Af 43 L BUN/Creatinine Ratio 16.0 Glucose 96 Calcium 10.3 H Troponin I High Sens 14 B-Natriuretic Peptide 353.2 H ABG Data ABG results: ABG 10/18/22 14:05 Specimen Type ART Sample Site R Radial pH 7.51 H Bicarbonate Actual 21.3 L Total CO2 22 Base Excess -2 O2 Saturation 93 L ABG pCO2 26.7 L ABG pO2 58 L Michael Test Positive O2 Delivery Device HFNC Liter Flow 7.0 Radiography Diagnostic Testing: Clinical Impression(s) from Imaging Studies Chest X-Ray 10/18/22 13:31 IMPRESSION: Superimposed chronic interstitial markings with granular right lower lobe airspace disease not excluded. Similar calcified granulomatous nodules of the right lower lung. Electronically Signed: Rommel DO Jose Luis at 15:43 EDT , Treatment and Re-Evaluation :: Patient appears to be in mild distress secondary to difficulty breathing, patient is 84% on 4 L, on 6 L nasal cannula, patient is now 91 and 92%.Patient received a full respiratory work-up including cardiac work-up to ensure there is no ACS, [place]. EKG sinus rhythm with a PVC. Patient received a CBC, BMP, two-view chest x-ray as well as a concern for COVID or influenza. Patient's respiratory atrial blood gas shows a pH of 7.5, CO2 of 26.7, O2 of 57.8. Bicarb 21.3. Patient remained stable on high flow oxygen. Patient's COVID-19, influenza was negative. CBC was unremarkable. Patient's chemistry showed a creatinine of 1.6, this is to be patient's baseline over the last 2 years. Patient's BNP is slightly elevated at 252. Initial troponin was 14 and repeat will be sent. Patient's 2 view chest x-ray for by ER physician shows superimposed chronic respiratory markings with granuloma right lower lobe airspace disease not excluded. Similar calcified granulomas nodules on the right lower lung. Spoke with admitting physician, I do believe the patient needs to be admitted for hypoxia, COPD exacerbation. Patient be started on Rocephin, Zithromax. He will be given a dose of IV steroids. Patient be admitted for for hypoxia, COPD exacerbation. Discharge Plan Triage Chief Complaint: Shortness of Breath ED Midlevel Provider: Valeriy Quintanilla ED Provider: Chayo Whittaker Dx/Rx/DC Orders Clinical Impression: CKD (chronic kidney disease), Hypoxia, COPD exacerbation Prescriptions: No Action tamsulosin 0.4 mg capsule 0.4 mg PO DAILY Qty: 30 magnesium oxide 400 mg (241.3 mg magnesium) tablet 400 mg PO DAILY Qty: 90 3RF sertraline 50 mg tablet 75 mg PO QHS Patient Comments: mood pravastatin 40 mg tablet 40 mg PO DAILY Qty: 90 3RF prednisone 5 mg tablet 7.5 mg PO DAILY metoprolol tartrate 25 mg tablet 25 mg PO BID Qty: 180 3RF albuterol sulfate 1 INHALER inhaler 1 - 2 puff INHALATION Q4H PRN PRN (Reason: Wheezing) Patient Comments: breathing acetaminophen 500 MG tablet 1,000 mg PO DAILY PRN PRN (Reason: Pain 1-10 Or Fever) Bevespi Aerosphere 9-4.8 mcg HFA aerosol inhaler 2 inh INHALATION BID Patient Comments: Inhale 2 Puffs as instructed twice daily. isosorbide mononitrate 30 mg tablet extended release 24 hr 30 mg PO QHS Qty: 90 3RF omeprazole 20 mg capsule,delayed release(DR/EC) 20 mg PO BID Qty: 180 3RF Eliquis 2.5 mg tablet 2.5 mg PO BID Qty: 180 3RF furosemide 40 mg tablet 40 mg PO DAILY Qty: 180 3RF spironolactone 25 mg tablet 12.5 mg PO DAILY Qty: 45 3RF Primary Care Provider: Rosana Douglass Referrals: Rosana Douglass DO [Primary Care Provider] - Disposition Disposition: Acute Care Hospital [facility]
[2022-10-18 14:11] LABS: Allen Test Positive; Base Excess -2 mmol/L (-2 to +2); Bicarbonate 21.3 mmol/L (22-26); Blood Gas Specimen Type ART; O2 Delivery Device HFNC; PO2 58 mmHG (75-100); SITE R Radial; SO2 93 % (95-99); Total Carbon Dioxide 22 mmol/L; pCO2 26.7 mmHg (35-45); pH 7.51 (7.35-7.45)
[2022-10-18 15:36] LABS: Reflex Troponin-HS? (from REC) Y
[2022-10-18] MEDS: Ceftriaxone 1 GM/50 ML BAG IV (16:30)
[2022-10-18 16:31] LABS: Troponin-I HS 16 pg/mL (3.0-78.0)
--- NOTE | 2022-10-18 16:31 | PCM.HP.STD ---
HPI - General General Date of Admission: 10/18/22 Date of Service: 10/18/22 Chief Complaint: Acute on chronic hypoxic respiratory failure HPI Narrative RICKY BURNS, is a 82 M with history of chronic hypoxic respiratory failure secondary to COVID infection (2019) on home 4 L nasal cannula, pulmonary hypertension, HFpEF, paroxysmal A-fib on Eliquis, CKD, BPH, depression and GERD who presented to the [facility] ED on 10/18/2022 with worsening hypoxia. Patient seen at bedside, present. Patient resting comfortably bed, conversing normally, in no acute distress. He is satting in the low 90s on 7 L high flow nasal cannula. No increased work of breathing noted. No wheezing noted on exam. Patient states that he noted he was becoming more short of breath on exertion over the last 3 to 4 days. He has required oxygen at home since a severe COVID infection back in 2019. Has been on 4 L nasal cannula consistently for quite a while without any changes. Patient denies any concern for infectious type symptoms recently. Denies any known sick contacts. He currently denies any fevers or chills. Denies any body aches. No other acute concerns. Vitals on admit were notable for mild hypertension, O2 sats in the low 90s on 7 L. Labs notable for normal white blood cell count, mild respiratory alkalosis with pH 7.51 and CO2 26, BNP 350. Chest x-ray did show superimposed chronic interstitial markings with granular right lower lobe airspace disease. [facility] Medical History (Updated 10/18/22 @ 16:10 by REJI Case) (HFpEF) heart failure with preserved ejection fraction Acute hypoxemic respiratory failure Aspiration pneumonia Atherosclerotic heart disease of [place] coronary artery without angina pectoris Bilateral pneumonia Bladder cancer Carotid bruit CKD (chronic kidney disease) stage 3, GFR 30-59 ml/min COPD (chronic obstructive pulmonary disease) COVID-19 (11/2019) Diverticulosis Essential (primary) hypertension GERD with esophagitis History of nephrolithiasis HLD (hyperlipidemia) Hypoxia Lung cancer Persistent atrial fibrillation (11/2019) Pulmonary nodules Renal calculi Secondary pulmonary arterial hypertension Sepsis Traumatic hematoma of right forearm Home Medications albuterol sulfate 90 mcg/actuation aerosol inhaler 1 - 2 puff inhalation Q4H PRN PRN Wheezing 12/04/15 [History Last Taken 03/27/22] tamsulosin 0.4 mg capsule 0.4 mg PO DAILY prostate #30 caps 09/16/18 [History Last Taken 03/26/22] acetaminophen 500 mg tablet 1,000 mg PO DAILY PRN PRN Pain 1-10 Or Fever 12/23/19 [History Last Taken 03/27/22] sertraline 50 mg tablet 75 mg PO QHS depression 11/14/20 [History Last Taken 03/26/22] magnesium oxide 400 mg (241.3 mg magnesium) tablet 400 mg PO DAILY #90 tabs 07/16/21 [Rx Last Taken 03/26/22] isosorbide mononitrate 30 mg tablet,extended release 24 hr 30 mg PO QHS heart #90 tabs 12/23/21 [Rx Last Taken 03/26/22] omeprazole 20 mg capsule,delayed release 20 mg PO BID gerd #180 caps 12/23/21 [Rx Last Taken 03/27/22] apixaban 2.5 mg tablet (Eliquis) 2.5 mg PO BID #180 tabs 01/20/22 [Rx Last Taken 03/27/22] pravastatin 40 mg tablet 40 mg PO DAILY cholesterol #90 tabs 01/20/22 [Rx Last Taken 03/27/22] glycopyrrolate 9 mcg-formoterol 4.8 mcg HFA aerosol inhaler (Bevespi Aerosphere) 2 inh inhalation BID COPD 03/27/22 [History Last Taken 03/26/22] metoprolol tartrate 25 mg tablet 25 mg PO BID #180 tabs 07/17/22 [Rx Last Taken Unknown] prednisone 5 mg tablet 7.5 mg PO DAILY 07/17/22 [History Last Taken Unknown] furosemide 40 mg tablet 40 mg PO DAILY fluid #180 tabs 09/01/22 [Rx Last Taken Unknown] spironolactone 25 mg tablet 12.5 mg (1/2 x 25 mg) PO DAILY #45 tabs 09/09/22 [Rx Last Taken Unknown] Allergy/AdvReac Type Severity Reaction Status Date / Time No Known Allergies Allergy Verified 07/17/22 10:50 Family History Mother Cancer Lung CA Brother Diabetes Surgical History H/O coronary artery bypass surgery (07/20/03) History of left heart catheterization (LHC) (10/18/12) History of lithotripsy (02/2019) History of lobectomy of lung History of tonsillectomy History of transurethral resection of prostate (06/03/06) Social History (Updated 10/18/22 @ 13:24 by Geetha Bernard) household members: spouse current occupational status: retired Smoking Status: Former smoker alcohol intake: current alcohol intake frequency: a few times a week Alcohol type: wine substance use type: does not use caffeine: Yes Type: coffee Number of servings: 3 what type of physical activity do you participate in: none seatbelt use: always do you feel safe at home: Yes ROS Constitutional Constitutional: Reports fatigue; Denies chills, fever(s) or weakness Cardiovascular Cardiovascular: Reports dyspnea on exertion; Denies chest pain, edema, lightheadedness or palpitations Respiratory/Chest Respiratory/Chest: Denies cough Gastrointestinal Gastrointestinal: Denies abdominal pain Vital Signs Vital Signs Vital Signs: 10/18/22 13:23 10/18/22 13:39 10/18/22 13:18 Temperature 97.1 F L Temperature Source Temporal Pulse Rate 70 82 Respiratory Rate 18 24 H Respiratory Effort Non-Labored Short of Breath Respiratory Pattern Tachypnea Blood Pressure 138/70 H 118/70 Blood Pressure Mean 92 86 Pulse Ox 91 84 Oxygen Delivery Method Nasal Cannula Nasal Cannula Nasal Cannula Oxygen Flow Rate (L/min) 5 6 6 10/18/22 15:13 Temperature Temperature Source Pulse Rate Respiratory Rate Respiratory Effort Respiratory Pattern Blood Pressure Blood Pressure Mean Pulse Ox 92 Oxygen Delivery Method High Flow Oxygen Flow Rate (L/min) 7 Weight Weight: 88.7 kg Body Mass Index (BMI) 28.0 Physical Exam Const alert and oriented x3 Constitutional Narrative: Pleasant elderly male, sitting comfortably in bed, conversing normally, no acute distress. No increased work of breathing on 7 L nasal cannula. General Appearance: cooperative and comfortable HEENT normocephalic, head/scalp atraumatic, hearing grossly normal bilaterally, nasal mucous membranes and turbinates normal and moist oral mucous membranes Eyes PERRL, EOMs intact bilaterally and conjunctivae normal Neck full ROM, no lymphadenopathy and supple Lymph Lymphatic: no lymphadenopathy noted Chest inspection of chest normal Resp normal respiratory effort Resp Narrative: Fairly good air movement bilaterally throughout. No wheezing noted. No increased work of breathing noted. Cardio regular rate, regular rhythm, no murmurs and peripheral pulses 2+ throughout GI normal to inspection, nondistended, normoactive bowel sounds, soft to palpation, non-tender and non-distended Back/Spine normal ROM Extremity normal to inspection, full ROM and no pedal edema Skin no rashes or lesions noted Psych mental status grossly normal Results Lab / Micro Data 10/18/22 13:30 10/18/22 13:30 Labs: Laboratory Results - last 24 hr 10/18/22 13:30: WBC 5.4, RBC 4.14 L, Hgb 13.3, Hct 41.6, MCV 100.5 H, MCH 32.1 H, MCHC 32.0, RDW Std Deviation 47.8 H, RDW Coeff of Jamar 12.8, Plt Count 118 L, MPV 10.2, Immature Gran % (Auto) 0.700, Neut % (Auto) 65.9, Lymph % (Auto) 20.3, [place] % (Auto) 10.3 H, Eos % (Auto) 2.1, Baso % (Auto) 0.7, Absolute Neuts (auto) 3.5, Absolute Lymphs (auto) 1.09, Nucleated RBC % 0, Sodium 141, Potassium 3.7, Chloride 110 H, Carbon Dioxide 24.0, Anion Gap 7, BUN 26 H, Creatinine 1.63 H, Estim Creat Clear Calc 36.70, Est GFR (MDRD) Af Amer 53 L, Est GFR (MDRD) Non-Af 43 L, BUN/Creatinine Ratio 16.0, Glucose 96, Calcium 10.3 H, Troponin I High Sens 14, B-Natriuretic Peptide 353.2 H Micro: Microbiology 10/18/22 13:41 Nasal Secretion SARS-CoV-2 & FLU Antigen (Rapid) - Final ABG Data ABG results: ABG 10/18/22 14:05 Specimen Type ART Sample Site R Radial pH 7.51 H Bicarbonate Actual 21.3 L Total CO2 22 Base Excess -2 O2 Saturation 93 L ABG pCO2 26.7 L ABG pO2 58 L Michael Test Positive O2 Delivery Device HFNC Liter Flow 7.0 Radiology Impression Chest X-Ray 10/18/22 13:31 IMPRESSION: Superimposed chronic interstitial markings with granular right lower lobe airspace disease not excluded. Similar calcified granulomatous nodules of the right lower lung. Electronically Signed: Rommel Amaya, DO at 15:43 EDT , Assessment & Plan Assessment/Plan (1) Acute and chronic respiratory failure with hypoxia: PLAN: Plan Patient is an 82-year-old male with history of chronic hypoxic respiratory failure secondary to COVID infection (2019) on home 4 L nasal cannula, pulmonary hypertension, HFpEF, paroxysmal A-fib on Eliquis, CKD, BPH, depression and GERD who presented to the [facility] ED on 10/18/2022 with worsening hypoxia. 1. Acute on chronic hypoxic respiratory failure, severe pulmonary hypertension Unclear etiology at this point. Vitals stable on admit, afebrile. Requiring up to 7 L high flow nasal cannula in ED. No productive cough noted. No increased work of breathing noted on exam. No wheezing on exam. Have concern that this may be due to worsening of his known severe pulmonary hypertension as noted below. Could also be a mild exacerbation of his chronic respiratory failure due to a mild infection. Follows with pulmonology both locally and at the [facility]. Also follows with cardiology in [place]. Notably had echo done on 09/22/2022 that showed an estimated right ventricular systolic pressure of 84 mmHg consistent with severe pulmonary hypertension, RV dilation and low normal RV systolic function. -Admit to observation bed with telemetry in the PCU. We will treat empirically with 5-day courses of steroids and antibiotics and assess for any improvement. Sputum cultures, respiratory panel pending. COVID and flu negative in the ED. We will repeat echo to monitor pulmonary pressures and RV function. May need to involve cardiology and/or pulmonology for further recommendations regarding medications for his severe pulmonary hypertension. Continue home inhalers. 2. HFpEF -Echo in 09/14 as noted above showed EF 60 to 65%, grade 1 LV diastolic dysfunction. Continue home Lasix and spironolactone. 3. Paroxysmal A-fib ? In A-fib on admit, rate controlled. Continue home Eliquis twice daily. 4. Depression ? Continue home sertraline. 5. BPH ? Continue home Flomax. DVT prophylaxis: Eliquis CODE STATUS: Full code, verified Expected disposition: Home, 1 to 2 days Total clinical time spent by myself addressing the patient's medical issues, reviewing all the data, and collaborating with patient's care team: 55 minutes. Charges/Coding Visit Charges Inpatient E&M: 29312 Init Hosp L2
[2022-10-18] MEDS: MethylPREDNISolone 125 MG/2 ML Vial IV (17:02)
[2022-10-18] MEDS: APIXABAN 2.5 MG TABLET (WCH) PO (22:02)
[2022-10-18] MEDS: Sertraline 50 MG Tablet 75 MG PO (22:02)
[2022-10-18] MEDS: Isosorbide Mononitrate 30 MG Tablet PO (22:02)
[2022-10-18] MEDS: Metoprolol Tartrate 25 MG Tablet PO (22:03)
[2022-10-18] MEDS: Pantoprazole Sodium 20 MG Tablet PO (22:04)
[2022-10-19] VITALS (10 sets, daily range): BP systolic 132–170; BP diastolic 68–89; PULSE 62–80; RESP 16–18; TEMP 36.4–36.8; O2SAT 92–94
[2022-10-19] MEDS: Ipratropium/Albuterol Sulfate 3 ML AMPUL.NEB INHALATION ×3 (07:12→21:43)
--- NOTE | 2022-10-19 08:22 | PCM.PN.HOSP ---
Reason for Visit Reason for Visit: Diagnoses Acute and chronic respiratory failure with hypoxia (10/18/22) Subjective Subjective With notable improvement since initial ED arrival with greater ease of breathing and lessened wheezing, oxygen now decreased down to 5 L with baseline normally at 4 L. Patient does state he still short of breath with exertion and fatigue but improved since previous. Discussed his current presentation and given how he did improve transition to IV steroids with hold on oral. Of note patient also was placed on both IV Rocephin and azithromycin with unremarkable respiratory panel, pending sputum culture as requested, will request procalcitonin which was discussed with patient and may be able to de-escalate off antibiotic therapy. Patient denies fevers, chills, nausea, emesis, abdominal pain, chest pain or dyspnea. Objective Data Objective Data Vital Signs: Vital Signs Temp Pulse Resp BP Pulse Ox O2 Del Method O2 Flow Rate 98.2 F 80 18 132/74 H 92 Nasal Cannula 5 10/19/22 00:30 10/19/22 07:13 10/19/22 07:13 10/19/22 00:30 10/19/22 07:13 10/19/22 07:13 10/19/22 07:13 Oxygen Flow Rate (L/min) 5 Oxygen Delivery Method Nasal Cannula Weight: 185 lb Body Mass Index (BMI) 26.5 Intake & Output: Intake and Output for Last 24 Hours 10/17/22 10/18/22 10/19/22 23:59 23:59 23:59 Intake Total 50 / 290 695 / 695 Output Total 1150 / 1150 Balance 50 / -210 -455 / -455 Lab / Micro Data 10/18/22 13:30 10/18/22 13:30 Labs: Laboratory Results - last 24 hr 10/18/22 13:30: WBC 5.4, RBC 4.14 L, Hgb 13.3, Hct 41.6, MCV 100.5 H, MCH 32.1 H, MCHC 32.0, RDW Std Deviation 47.8 H, RDW Coeff of Jamar 12.8, Plt Count 118 L, MPV 10.2, Immature Gran % (Auto) 0.700, Neut % (Auto) 65.9, Lymph % (Auto) 20.3, Evans % (Auto) 10.3 H, Eos % (Auto) 2.1, Baso % (Auto) 0.7, Absolute Neuts (auto) 3.5, Absolute Lymphs (auto) 1.09, Nucleated RBC % 0, Sodium 141, Potassium 3.7, Chloride 110 H, Carbon Dioxide 24.0, Anion Gap 7, BUN 26 H, Creatinine 1.63 H, Estim Creat Clear Calc 36.70, Est GFR (MDRD) Af Amer 53 L, Est GFR (MDRD) Non-Af 43 L, BUN/Creatinine Ratio 16.0, Glucose 96, Calcium 10.3 H, Troponin I High Sens 14, B-Natriuretic Peptide 353.2 H 10/18/22 16:00: Troponin I High Sens 16 Micro: Microbiology 10/18/22 22:10 Mucosa - Nasopharyngeal Respiratory Panel (PCR) - Final 10/18/22 13:41 Nasal Secretion SARS-CoV-2 & FLU Antigen (Rapid) - Final ABG Data ABG results: ABG 10/18/22 14:05 Specimen Type ART Sample Site R Radial pH 7.51 H Bicarbonate Actual 21.3 L Total CO2 22 Base Excess -2 O2 Saturation 93 L ABG pCO2 26.7 L ABG pO2 58 L Michael Test Positive O2 Delivery Device HFNC Liter Flow 7.0 Radiography Diagnostic Testing: Radiology Impression Chest X-Ray 10/18/22 13:31 IMPRESSION: Superimposed chronic interstitial markings with granular right lower lobe airspace disease not excluded. Similar calcified granulomatous nodules of the right lower lung. Electronically Signed: Rommel Amaya DO at 15:43 EDT , Physical Exam Narrative Physical Examination: General: Awake, alert, oriented x 3 and cooperative, seated upright in the PCU bed, fatigued otherwise no acute distress. Skin: Normal color, normal turgor, no icterus, no cyanosis except notable very staged ecchymoses to the extremities. HEENT: AT/NC, EOMI, PERRLA, MMM, no carotid bruits or JVD noted. Lungs: Diminished throughout, greater bases, mildly increased respiratory rate but no distress, notes feeling improved since ED presentation, no current appreciated rales, ronchi or wheezing. Heart: Regular rate and rhythm; no gallop, rub audible. Abdomen: Soft, NTTP, ND, mildly hyperactive BS. Extremities: No cyanosis, clubbing, or edema. Neurological: Patient awake, alert, oriented as noted, cognitive function intact; pupils equally reactive to light and accommodation, cranial nerves II-XII grossly normal, moving all 4 extremities, no focal deficits, strength improving, moderately to severely globally decreased. Psychiatric: Affect appears fatigued otherwise normal, no acute evidence of depressive or anxiety feelings. Assessment & Plan Assessment/Plan (1) Hypoxia: PLAN: Plan The patient is an 82 y/o w/ PMHx: Hx COVID PNA/Viral Syndrome, COPD w/ Chronic Hypoxic Respiratory Failure (4L NC), Pulmonary HTN, Diastolic CHF, PAF on Eliquis, BPH, Depression and Anxiety, GERD, CKD stage III unclear subtype who presents to the [facility] ED on 10/18/22 with history of worsening hypoxia over the last 3 to 4 days with no recent fever and chills nor any sick contacts but noted to be low 90s on 7 L prompting ED evaluation. #1. Acute on Chronic Hypoxic Respiratory Failure, Unclear etiology, Possible Acute on Chronic COPD Exacerbation complicated by severe underlying pulmonary hypertension and Hx COVID PNA/Viral Syndrome: Work-up in the ED included CBC with no marked WC elevation, mild respiratory alkalosis with pH 7.51, CO2 26, BNP mildly elevated 350, chest x-ray with superimposed chronic incisional markings with granular right lower lobe airspace disease. Admitted to PCU, recent echocardiogram 09/22/2022 with normal LV size, normal LV systolic function, EF 60? percent, grade 1 LV diastolic dysfunction, RV dilated, RV systolic function low normal, mildly dilated RA, moderate TVI, AV sclerosis present, RVSP 84 mmHg consistent with severe pulmonary hypertension, estimated right atrial pressure 3 mmHg with no prior comparison, initiated on empiric antibiotics with IV Rocephin and IV azithromycin, maintained on IV Solu-Medrol, rapid SARS COVID and flu antigens negative, full respiratory panel negative, sputum cultures requested, given patient is clinically improved with current regimen of steroids and aerosols will hold on repeat echo at this time especially given its not available to be performed today but if worsen low threshold to add back order given severity of his pulmonary hypertension and will certainly need aggressive follow-up in the pulmonary hypertension clinic, maintain on ATC DuoNeb therapy, PRN albuterol, wean supplemental oxygen as able to home regimen, PT/OT/CM assessments for discharge planning. We will continue to monitor and if able to wean down to his baseline oxygen supplementation would plan 10/21/2019 3 AM oxygenation trial and potential discharge to home if appropriate. #2. Chronic diastolic CHF/HFpEF: BNP mildly elevated 350, chest x-ray with superimposed chronic incisional markings with granular right lower lobe airspace disease, recent echocardiogram 09/22/2022 with normal LV size, normal LV systolic function, EF 60? percent, grade 1 LV diastolic dysfunction, RV dilated, RV systolic function low normal, mildly dilated RA, moderate TVI, AV sclerosis present, RVSP 84 mmHg consistent with severe pulmonary hypertension, estimated right atrial pressure 3 mmHg with no prior comparison. As noted given improvement with interventions as noted will defer repeat immediate echocardiogram initiated on presentation however if clinically worsens low threshold to add back but he cannot have it 10/19/22 anyway as its not available. We will maintain on home Eliquis, statin, metoprolol, spironolactone, Lasix oral regimen. #3. Hypertension: Continue home regimen including Lasix, isosorbide, metoprolol, spironolactone with adjustments as needed, PRN hydralazine. #4. Hyperlipidemia: We will continue patient on statin therapy. #5. CAD: Status post CABG, will continue Eliquis, statin, metoprolol, not on MINERVA inhibitor/ARB, defer to outpatient #6. PAF: We will continue patient home Eliquis and metoprolol home regimen. #7. Anxiety and depression: We will continue patient on sertraline regimen. #8. BPH: We will continue patient on Flomax regimen. #9. DVT prophylaxis: Continue patient on Eliquis regimen. #10. CODE STATUS: Full code. Charges/Coding Visit Charges Inpatient E&M: 31363 Subs Hosp L3
[2022-10-19] MEDS: APIXABAN 2.5 MG TABLET (WCH) PO ×2 (10:20→21:05)
[2022-10-19] MEDS: Magnesium Chloride 64 MG Delay Rel.Tablet 128 MG PO (10:20)
[2022-10-19] MEDS: Spironolactone 25 MG Tablet 12.5 MG PO (10:20)
[2022-10-19] MEDS: Metoprolol Tartrate 25 MG Tablet PO ×2 (10:20→21:05)
[2022-10-19] MEDS: Furosemide 40 MG Tablet PO (10:20)
[2022-10-19] MEDS: Pantoprazole Sodium 20 MG Tablet PO ×2 (10:20→21:05)
[2022-10-19] MEDS: Pravastatin 40 MG Tablet PO (10:20)
[2022-10-19] MEDS: Tamsulosin HCl 0.4 MG Capsule PO (10:20)
[2022-10-19] MEDS: Methylprednisolone Sod Succ 40 MG/ML VIAL IV ×3 (10:21→21:05)
[2022-10-19] MEDS: Ceftriaxone 1 GM/50 ML BAG IV (10:26)
[2022-10-19 14:09] LABS: Absolute Lymphocyte Count 0.48 X10^3/uL (0.83-4.51); Absolute Neutrophil Count 6.4 X10^3/uL (2.0-7.7); Basophil# 0.01 X10^3/uL; Basophil% 0.1 % (0-1); Hematocrit 41.7 % (40-54); Hemoglobin 13.4 g/dL (13.0-16.5); Lymphocyte # 0.48 X10^3/ul (0.83-4.51); Lymphocyte % 6.5 % (19-41); Mean Corp Hgb Conc 32.1 g/dL (32-36); Mean Corpuscular Hgb 32.1 pg (27.0-32.0); Mean Corpuscular Volume 99.8 fL (80-94); Monocyte# 0.41 X10^3/uL; Monocyte% 5.6 % (0-10); NRBC Flagged by Analyzer 0 % (0-5); Neutrophil # 6.38 X10^3/uL (2.7-7.7); Neutrophil % 87.1 % (47-70); POSITIVE DIFFERENTIAL YES; Platelet Count 141 K/mm3 (150-450); RBC Distribution Width CV 12.7 % (11.6-14.6); RBC Distribution Width SD 47.2 fl (35.1-43.9); Red Blood Count 4.18 M/mm3 (4.6-6.2); White Blood Count 7.3 K/mm3 (4.4-11.0)
[2022-10-19 14:12] LABS: Differential Indicated SCAN CRITERIA MET
[2022-10-19 14:21] LABS: Anion Gap 6 (5-15); BUN 29 mg/dL (7-18); BUN/Creat Ratio 19.7 RATIO (10-20); Calcium,Total 10.1 mg/dL (8.5-10.1); Chloride 110 mmol/L (98-107); Creatinine, Serum 1.47 mg/dL (0.70-1.30); EST Glomerular Filtration Rate 49 mL/min (>60); Est Glom Filt Rate - Afr Amer 59 mL/min (>60); Estimated Creatinine Clearance 40.69 ml/min; Glucose 130 mg/dL (74-106); Potassium 4.3 mmol/L (3.5-5.1); Sodium Level 141 mmol/L (136-145)
[2022-10-19 14:32] LABS: Procalcitonin < 0.04 ng/mL (0.00-0.09)
[2022-10-19 15:05] LABS: Differential Comment SCANNED
[2022-10-19] MEDS: Isosorbide Mononitrate 30 MG Tablet PO (21:05)
[2022-10-19] MEDS: Sertraline 50 MG Tablet 75 MG PO (21:05)
[2022-10-19] MEDS: 0.9% Saline Lock 10 ML Syringe IV (21:06)
[2022-10-19] MEDS: Acetaminophen 325 MG Tablet 650 MG PO (23:04)
[2022-10-20] VITALS (11 sets, daily range): BP systolic 128–147; BP diastolic 66–89; PULSE 61–90; RESP 16–20; TEMP 36.4–36.7; O2SAT 90–97
[2022-10-20] MEDS: Methylprednisolone Sod Succ 40 MG/ML VIAL IV ×3 (05:20→20:13)
[2022-10-20 06:27] LABS: Absolute Lymphocyte Count 0.58 X10^3/uL (0.83-4.51); Absolute Neutrophil Count 7.5 X10^3/uL (2.0-7.7); Basophil# 0.01 X10^3/uL; Basophil% 0.1 % (0-1); Hematocrit 43.6 % (40-54); Hemoglobin 13.9 g/dL (13.0-16.5); Lymphocyte # 0.58 X10^3/ul (0.83-4.51); Lymphocyte % 6.8 % (19-41); Mean Corp Hgb Conc 31.9 g/dL (32-36); Mean Corpuscular Hgb 32.4 pg (27.0-32.0); Mean Corpuscular Volume 101.6 fL (80-94); Mean Platelet Vol. 10.4 fl (6.2-12.0); Monocyte# 0.39 X10^3/uL; Monocyte% 4.6 % (0-10); NRBC Flagged by Analyzer 0 % (0-5); POSITIVE DIFFERENTIAL YES; Platelet Count 149 K/mm3 (150-450); RBC Distribution Width CV 12.7 % (11.6-14.6); RBC Distribution Width SD 47.6 fl (35.1-43.9); Red Blood Count 4.29 M/mm3 (4.6-6.2); White Blood Count 8.5 K/mm3 (4.4-11.0)
[2022-10-20 07:01] LABS: AST(SGOT) 12 U/L (15-37); Alanine Aminotransfer ALT/SGPT 12 U/L (16-61); Albumin, Serum 3.6 g/dL (3.2-5.0); Alkaline Phosphatase 67 U/L (45-117); Anion Gap 5 (5-15); BUN 33 mg/dL (7-18); BUN/Creat Ratio 21.6 RATIO (10-20); Calcium,Total 10.4 mg/dL (8.5-10.1); Chloride 108 mmol/L (98-107); Creatinine, Serum 1.53 mg/dL (0.70-1.30); EST Glomerular Filtration Rate 47 mL/min (>60); Est Glom Filt Rate - Afr Amer 57 mL/min (>60); Globulin 3.5 g/dL (2.2-4.2); Glucose 140 mg/dL (74-106); Potassium 3.9 mmol/L (3.5-5.1); Protein, Total 7.1 g/dL (6.4-8.2); Sodium Level 140 mmol/L (136-145)
[2022-10-20 07:02] LABS: Differential Indicated SCAN CRITERIA MET
[2022-10-20] MEDS: Ipratropium/Albuterol Sulfate 3 ML AMPUL.NEB INHALATION ×3 (07:55→19:54)
[2022-10-20] MEDS: Ceftriaxone 1 GM/50 ML BAG IV (10:34)
[2022-10-20] MEDS: Tamsulosin HCl 0.4 MG Capsule PO (10:35)
[2022-10-20] MEDS: Pantoprazole Sodium 20 MG Tablet PO ×2 (10:35→20:16)
[2022-10-20] MEDS: Magnesium Chloride 64 MG Delay Rel.Tablet 128 MG PO (10:35)
[2022-10-20] MEDS: Furosemide 40 MG Tablet PO (10:35)
[2022-10-20] MEDS: Spironolactone 25 MG Tablet 12.5 MG PO (10:36)
[2022-10-20] MEDS: Metoprolol Tartrate 25 MG Tablet PO ×2 (10:36→20:14)
[2022-10-20] MEDS: APIXABAN 2.5 MG TABLET (WCH) PO ×2 (10:36→20:14)
[2022-10-20] MEDS: Pravastatin 40 MG Tablet PO (11:00)
--- NOTE | 2022-10-20 12:45 | CASEMGMT ---
RN CM Face to Face with patient for initial transition planning/care coordination assessment, at bedside. RN CM introduced self and role at [facility]. Patient sitting up on edge of bed, alert and oriented. Patient willing to participate in assessment and is able to answer all questions appropriately.? Care providers, pharmacy, and demographics verified. Patient wishes to discharge home, denies need for home health at this time.? Patient states he has no further needs or concerns at this time. CM to follow for discharge planning needs that may arise. PCP:Evonne Specialists:Aylin (Casket Trimmer), Nasir ([employer] Sorter) Preferred Pharmacy: [facility] Insurance:Medicare Part A, B & F Prescription Benefit:?Yes Living Will/HPOA:Yes. Estrella and two daughters LNOK: Estrella and two daughters Living Arrangements:Patient states he lives at home with his life in a one story home with 2 steps and a railing to enter and FFSU. Reports some difficulty using steps into home as well as steps into basement. Independent in all ADLs, but shortness of breath with ambulation. Transportation:Self and DME/HHC: Patient reports having shower benches, raised toilet seat, grab bars, Pulse Ox, BP Cuff, Portable Oxygen at 4 Lpm continuous through [employer], and a BP Cuff. Denies any previous SNF. Patient has had [facility] in the past. Disposition Plan: Patient to discharge home with family support and follow-up plan in place. Will continue to monitor for oxygen needs. Geetha GARCIA, RN, CM
[2022-10-20] MEDS: 0.9% Saline Lock 10 ML Syringe IV (14:35)
--- NOTE | 2022-10-20 15:13 | PN_ITS ---
Subjective Subjective Patient seen and examined. He had no complaints this morning and had an uneventful night. Review of systems is otherwise negative. He says he feels much better. Review of systems is otherwise negative. Objective Data Objective Data Vital Signs: Vital Signs Temp Pulse Resp BP Pulse Ox O2 Del Method O2 Flow Rate 98.1 F 76 16 142/77 H 94 Nasal Cannula 4.5 10/20/22 10:00 10/20/22 10:36 10/20/22 10:00 10/20/22 10:36 10/20/22 10:00 10/20/22 10:00 10/20/22 10:00 Oxygen Flow Rate (L/min) 4.5 Oxygen Delivery Method Nasal Cannula Weight: 185 lb Body Mass Index (BMI) 26.5 Intake & Output: Intake and Output for Last 24 Hours 10/18/22 10/19/22 10/20/22 23:59 23:59 23:59 Intake Total 50 / 290 997.5 / 1237.5 662.5 / 662.5 Output Total 1950 / 1950 Balance 50 / -210 -952.5 / -712.5 662.5 / 662.5 Lab / Micro Data 10/20/22 05:35 10/20/22 05:35 Labs: Laboratory Results - last 24 hr 10/20/22 05:35: WBC 8.5, RBC 4.29 L, Hgb 13.9, Hct 43.6, MCV 101.6 H, MCH 32.4 H , MCHC 31.9 L, RDW Std Deviation 47.6 H, RDW Coeff of Jamar 12.7, Plt Count 149 L, MPV 10.4, Immature Gran % (Auto) 0.500, Neut % (Auto) 88.0 H, Lymph % (Auto) 6.8 L, [place] % (Auto) 4.6, Eos % (Auto) 0.0, Baso % (Auto) 0.1, Absolute Neuts (auto) 7.5, Absolute Lymphs (auto) 0.58 L, Nucleated RBC % 0, Sodium 140, Potassium 3.9, Chloride 108 H, Carbon Dioxide 27.0, Anion Gap 5, BUN 33 H, Creatinine 1.53 H, Estim Creat Clear Calc 39.10, Est GFR (MDRD) Af Amer 57 L, Est GFR (MDRD) Non-Af 47 L, BUN/Creatinine Ratio 21.6 H, Glucose 140 H, Calcium 10.4 H, Total Bilirubin 0.50, AST 12 L, ALT 12 L, Alkaline Phosphatase 67, Total Protein 7.1, Albumin 3.6, Globulin 3.5, Albumin/Globulin Ratio 1.0 Micro: Microbiology 10/18/22 22:10 Mucosa - Nasopharyngeal Respiratory Panel (PCR) - Final 10/18/22 13:41 Nasal Secretion SARS-CoV-2 & FLU Antigen (Rapid) - Final Physical Exam Const alert, oriented x3 and no apparent distress General Appearance: cooperative HEENT normocephalic, head/scalp atraumatic, moist oral mucous membranes and oropharynx normal Eyes PERRL and EOMs intact bilaterally Neck no lymphadenopathy, supple and no JVD General: trachea midline Lymph Lymphatic: no lymphadenopathy noted and no lymphedema noted Resp Resp Narrative: mildly diminished breath sounds bibasally, no wheezes or crackles. on 4.5L of oxygen Cardio regular rate, regular rhythm, S1 normal heart sound, S2 normal heart sound and no murmurs GI normal to inspection, nondistended, normoactive bowel sounds, soft to palpation, non-tender and non-distended Extremity normal capillary refill, no clubbing, cyanosis or edema and no calf tenderness Skin General Skin Exam: no breakdown and turgor normal Neuro CN's II-XII intact bilaterally, no focal motor deficits, no sensory deficits noted and deep tendon reflexes 2+ bilaterally Motor Exam: strength 5/5 throughout Psych thought process normal and cooperative Appearance: appropriate Assessment & Plan Assessment/Plan (1) Hypoxia: (2) Acute and chronic respiratory failure with hypoxia: PLAN: Plan #Hypoxia in the setting of chronic respiratory failure * On 4.5 L of oxygen. States his breathing has improved and he feels much better. * Has known RVSP of 84 mmHg, consistent with severe pulmonary hypertension. * Now also on IV Solu-Medrol and IV Rocephin and azithromycin for presumptive p neumonia. * Breathing treatments bronchodilators. Titrate oxygen to maintain saturation above 90%. Will need follow-up with pulmonology on outpatient basis. * #Heart failure preserved ejection fraction: BNP was elevated at 350. Has known EF of 60%. On Lasix and spironolactone. #Hypertension: On Lasix and metoprolol as well as spironolactone #Hyperlipidemia: On statin #CAD s/p CABG: On metoprolol and statin. #Paroxysmal A-fib: On Eliquis. On metoprolol. #Anxiety and depression: On sertraline #BPH: On Flomax DVT prophylaxis: Eliquis Disposition: Anticipate discharge home tomorrow Charges/Coding Visit Charges Inpatient E&M: 11666 Subs Hosp L2
[2022-10-20] MEDS: Sertraline 50 MG Tablet 75 MG PO (20:13)
[2022-10-20] MEDS: Acetaminophen 325 MG Tablet 650 MG PO (20:13)
[2022-10-20] MEDS: Isosorbide Mononitrate 30 MG Tablet PO (20:15)
[2022-10-21] VITALS (8 sets, daily range): BP systolic 132–140; BP diastolic 68–90; PULSE 62–71; RESP 12–18; TEMP 36.4–36.6; O2SAT 92–98
[2022-10-21] MEDS: Methylprednisolone Sod Succ 40 MG/ML VIAL IV ×2 (05:27→13:29)
[2022-10-21 06:19] LABS: Absolute Lymphocyte Count 0.85 X10^3/uL (0.83-4.51); Absolute Neutrophil Count 7.5 X10^3/uL (2.0-7.7); Eosinophil# 0.01 X10^3/uL; Eosinophils% 0.1 % (0-5); Hematocrit 39.9 % (40-54); Hemoglobin 12.9 g/dL (13.0-16.5); Lymphocyte # 0.85 X10^3/ul (0.83-4.51); Lymphocyte % 9.2 % (19-41); Mean Corp Hgb Conc 32.3 g/dL (32-36); Mean Corpuscular Hgb 32.8 pg (27.0-32.0); Mean Corpuscular Volume 101.5 fL (80-94); Mean Platelet Vol. 10.3 fl (6.2-12.0); Monocyte% 8.7 % (0-10); NRBC Flagged by Analyzer 0 % (0-5); Neutrophil # 7.52 X10^3/uL (2.7-7.7); Neutrophil % 81.6 % (47-70); Platelet Count 130 K/mm3 (150-450); RBC Distribution Width CV 12.6 % (11.6-14.6); RBC Distribution Width SD 47.2 fl (35.1-43.9); Red Blood Count 3.93 M/mm3 (4.6-6.2); White Blood Count 9.2 K/mm3 (4.4-11.0)
[2022-10-21 06:48] LABS: Anion Gap 3 (5-15); BUN 37 mg/dL (7-18); BUN/Creat Ratio 23.9 RATIO (10-20); Calcium,Total 9.8 mg/dL (8.5-10.1); Chloride 108 mmol/L (98-107); Creatinine, Serum 1.55 mg/dL (0.70-1.30); EST Glomerular Filtration Rate 46 mL/min (>60); Est Glom Filt Rate - Afr Amer 56 mL/min (>60); Estimated Creatinine Clearance 38.59 ml/min; Glucose 94 mg/dL (74-106); Potassium 3.7 mmol/L (3.5-5.1); Sodium Level 141 mmol/L (136-145)
[2022-10-21] MEDS: Ipratropium/Albuterol Sulfate 3 ML AMPUL.NEB INHALATION ×2 (07:10→12:45)
[2022-10-21] MEDS: 0.9% Saline Lock 10 ML Syringe IV (09:04)
[2022-10-21] MEDS: Ceftriaxone 1 GM/50 ML BAG IV (09:10)
[2022-10-21] MEDS: Metoprolol Tartrate 25 MG Tablet PO (09:17)
[2022-10-21] MEDS: APIXABAN 2.5 MG TABLET (WCH) PO (09:18)
[2022-10-21] MEDS: Spironolactone 25 MG Tablet 12.5 MG PO (09:18)
[2022-10-21] MEDS: Pantoprazole Sodium 20 MG Tablet PO (09:18)
[2022-10-21] MEDS: Magnesium Chloride 64 MG Delay Rel.Tablet 128 MG PO (09:18)
[2022-10-21] MEDS: Pravastatin 40 MG Tablet PO (09:18)
[2022-10-21] MEDS: Furosemide 40 MG Tablet PO (09:18)
[2022-10-21] MEDS: Tamsulosin HCl 0.4 MG Capsule PO (09:18)
--- NOTE | 2022-10-21 12:14 | DCINST_ITS ---
Discharge Instructions Diet Discharge Diet: Low fat / Low cholesterol Activity Discharge Activity: Return to Normal Activity Weight Bearing Status: Weight bearing as tolerated Dressing / Incision Call your doctor if you observe: Fever of 101 or Higher, Shortness of breath, Dizziness, Swelling in the ankles and Chest pain Follow Up Care Test Results: Test results from this visit will be discussed in further detail at your follow- up appointment, if applicable. Discharge Plan Admission Admit Date/Time: 10/19/22 15:00 Primary Reason for Your Visit: hypoxia, pulmonary hypertension Attending Provider: Amanda Flores Primary Care Provider: Rosana Douglass Consulting Providers: Nuno Ennis; Suki Pemberton Instructions Patient Instructions: Pulmonary Hypertension, ED Dyspnea Discharge Orders/Prescriptions Prescriptions: Continued tamsulosin 0.4 mg capsule 0.4 mg PO DAILY Qty: 30 magnesium oxide 400 mg (241.3 mg magnesium) tablet 400 mg PO DAILY Qty: 90 3RF sertraline 50 mg tablet 75 mg PO QHS Patient Comments: mood pravastatin 40 mg tablet 40 mg PO DAILY Qty: 90 3RF prednisone 5 mg tablet 7.5 mg PO DAILY metoprolol tartrate 25 mg tablet 25 mg PO BID Qty: 180 3RF albuterol sulfate 1 INHALER inhaler 1 - 2 puff INHALATION Q4H PRN PRN (Reason: Wheezing) Patient Comments: breathing acetaminophen 500 MG tablet 1,000 mg PO DAILY PRN PRN (Reason: Pain 1-10 Or Fever) Bevespi Aerosphere 9-4.8 mcg HFA aerosol inhaler 2 inh INHALATION BID Patient Comments: Inhale 2 Puffs as instructed twice daily. isosorbide mononitrate 30 mg tablet extended release 24 hr 30 mg PO QHS Qty: 90 3RF omeprazole 20 mg capsule,delayed release(DR/EC) 20 mg PO BID Qty: 180 3RF Eliquis 2.5 mg tablet 2.5 mg PO BID Qty: 180 3RF furosemide 40 mg tablet 40 mg PO DAILY Qty: 180 3RF spironolactone 25 mg tablet 12.5 mg PO DAILY Qty: 45 3RF Referrals / Follow Up: Rosana Douglass DO [Primary Care Provider] - Within 1 Week Disposition Disposition (needs filled in before D/C Order can be placed): Home, Self Care
--- NOTE | 2022-10-21 12:14 | DS.PCM_ITS ---
Providers Date of Admission: 10/19/22 Date of Discharge: 10/21/22 Primary Care Physician: Dr. Rosana Douglass DO Reason For Visit: ACUTE ON CHRONIC HYPOXIC RESPIRATORY FAILURE Diagnosis Discharge Diagnosis (1) Hypoxia: Status: Acute Code(s): R09.02 - Hypoxemia (2) Acute and chronic respiratory failure with hypoxia: Status: Chronic Code(s): J96.21 - Acute and chronic respiratory failure with hypoxia Plan #Hypoxia in the setting of chronic respiratory failure * On 4.5 L of oxygen. States his breathing has improved and he feels much better. * Has known RVSP of 84 mmHg, consistent with severe pulmonary hypertension. * Now also on IV Solu-Medrol and IV Rocephin and azithromycin for presumptive pneumonia. * Breathing treatments bronchodilators. Titrate oxygen to maintain saturation above 90%. Will need follow-up with pulmonology on outpatient basis. * #Heart failure preserved ejection fraction: BNP was elevated at 350. Has known EF of 60%. On Lasix and spironolactone. #Hypertension: On Lasix and metoprolol as well as spironolactone #Hyperlipidemia: On statin #CAD s/p CABG: On metoprolol and statin. #Paroxysmal A-fib: On Eliquis. On metoprolol. #Anxiety and depression: On sertraline #BPH: On Flomax DVT prophylaxis: Eliquis Disposition: Anticipate discharge home tomorrow Medications at Discharge Home Medications albuterol sulfate 90 mcg/actuation aerosol inhaler 1 - 2 puff inhalation Q4H PRN PRN Wheezing 12/04/15 tamsulosin 0.4 mg capsule 0.4 mg PO DAILY prostate #30 caps 09/16/18 acetaminophen 500 mg tablet 1,000 mg PO DAILY PRN PRN Pain 1-10 Or Fever 12/23/19 sertraline 50 mg tablet 75 mg PO QHS depression 11/14/20 magnesium oxide 400 mg (241.3 mg magnesium) tablet 400 mg PO DAILY #90 tabs 07/16/21 isosorbide mononitrate 30 mg tablet,extended release 24 hr 30 mg PO QHS heart #90 tabs 12/23/21 omeprazole 20 mg capsule,delayed release 20 mg PO BID gerd #180 caps 12/23/21 apixaban 2.5 mg tablet (Eliquis) 2.5 mg PO BID #180 tabs 01/20/22 pravastatin 40 mg tablet 40 mg PO DAILY cholesterol #90 tabs 01/20/22 glycopyrrolate 9 mcg-formoterol 4.8 mcg HFA aerosol inhaler (Bevespi Aerosphere) 2 inh inhalation BID COPD 03/27/22 metoprolol tartrate 25 mg tablet 25 mg PO BID #180 tabs 07/17/22 furosemide 40 mg tablet 40 mg PO DAILY fluid #180 tabs 09/01/22 spironolactone 25 mg tablet 12.5 mg (1/2 x 25 mg) PO DAILY #45 tabs 09/09/22 prednisone 5 mg tablet 7.5 mg (1.5 x 5 mg) PO DAILY #45 tabs 10/21/22 Hospital Course Operations None Procedures None Summary of Care Provided Minutes Spent on Discharge: 45 Hospital Course: Patient is an 82-year-old male with a past medical history as outlined who was admitted through the ED on 10/18/2022. 3 with a complaint of worsening shortness of breath. He had a past medical history of chronic respiratory failure due to COVID-19 infection from 2019 on 4 L of oxygen at home, pulmonary hypertension as well as heart failure preserved ejection fraction and paroxysmal A-fib on Eliquis. He had been getting more short of breath and increasing his oxygen requirements. He had gone as high as 7 L of oxygen. He had no wheezing. He had no other complaints. ABG done on admission showed pH of 7.51 with PCO2 of 26. BNP was elevated at 350. Chest x-ray showed superimposed chronic interstitial markings with a granular right lower lobe airspace disease. He was admitted and managed for acute on chronic hypoxic respiratory failure which was thought to be due to CHF exacerbation, and pulmonary hypertension. He was placed on IV Solu-Medrol and IV Rocephin and azithromycin for presumptive pneumonia. He was also placed on breathing treatments bronchodilators. He was also diuresed with Lasix. His shortness of breath improved and he felt much better. He was weaned down to his baseline 4 L of oxygen. He was discharged home on 10/21/2022. He was discharged on Lasix as well as p.o. prednisone 40 mg daily for 5 days. He is to follow-up with his primary care doctor within 1 to 2 weeks. Patient seen and examined prior to discharge. He had no complaints and had an uneventful night. Review of systems otherwise negative. Labs and vitals reviewed. Home medication reviewed and reconciled. Physical Exam Const alert, oriented x3 and no apparent distress General Appearance: cooperative, comfortable and well kempt HEENT normocephalic, head/scalp atraumatic, hearing grossly normal bilaterally, nasal mucous membranes and turbinates normal, moist oral mucous membranes and oroph arynx normal Eyes PERRL, EOMs intact bilaterally and conjunctivae normal Neck full ROM, no lymphadenopathy, supple and no JVD General: trachea midline Lymph Lymphatic: no lymphadenopathy noted and no lymphedema noted Chest inspection of chest normal Resp normal respiratory effort Resp Narrative: mildly diminished breath sounds bibasally, no wheezes or crackles. on 4 L of oxygen Cardio regular rate, regular rhythm, S1 normal heart sound, S2 normal heart sound, no murmurs and peripheral pulses 2+ throughout GI normal to inspection, nondistended, normoactive bowel sounds, soft to palpation, non-tender and non-distended Back/Spine normal ROM Extremity normal to inspection, full ROM, normal capillary refill, no clubbing, cyanosis or edema, no calf tenderness and no pedal edema Skin no rashes or lesions noted General Skin Exam: no breakdown and turgor normal Neuro oriented x3, CN's II-XII intact bilaterally, moves all extremities, no focal motor deficits, no sensory deficits noted and deep tendon reflexes 2+ bilaterally Motor Exam: strength 5/5 throughout Psych mental status grossly normal, thought process normal and cooperative Appearance: appropriate Weight / BMI Weight Weight: 185 lb Body Mass Index (BMI) 26.5 ABG / Lab / Microbiology Data 10/21/22 05:45 10/21/22 05:45 Laboratory: Laboratory Results - last 24 hr 10/21/22 05:45: WBC 9.2, RBC 3.93 L, Hgb 12.9 L, Hct 39.9 L, MCV 101.5 H, MCH 32.8 H, MCHC 32.3, RDW Std Deviation 47.2 H, RDW Coeff of Jamar 12.6, Plt Count 130 L, MPV 10.3, Immature Gran % (Auto) 0.400, Neut % (Auto) 81.6 H, Lymph % (Auto) 9.2 L, Hamlin % (Auto) 8.7, Eos % (Auto) 0.1, Baso % (Auto) 0.0, Absolute Neuts (auto) 7.5, Absolute Lymphs (auto) 0.85, Nucleated RBC % 0, Sodium 141, Potassium 3.7, Chloride 108 H, Carbon Dioxide 30.0, Anion Gap 3 L, BUN 37 H, Creatinine 1.55 H, Estim Creat Clear Calc 38.59, Est GFR (MDRD) Af Amer 56 L, Est GFR (MDRD) Non-Af 46 L, BUN/Creatinine Ratio 23.9 H, Glucose 94, Calcium 9.8 Microbiology: Microbiology 10/18/22 22:10 Mucosa - Nasopharyngeal Respiratory Panel (PCR) - Final 10/18/22 13:41 Nasal Secretion SARS-CoV-2 & FLU Antigen (Rapid) - Final D/C Instructions Discharge Diet: Low fat / Low cholesterol Weight Bearing Status: Weight bearing as tolerated Call your doctor if you observe: Fever of 101 or Higher, Shortness of breath, Dizziness, Swelling in the ankles and Chest pain Meaningful Use Info Meaningful Use Diagnoses (Choose all that apply): CHF CHF MINERVA/ARB ordered at discharge?: No Reason MINERVA/ARB not ordered?: Not indicated Documented LVEF (%): 60 Discharge Plan Admission Admit Date/Time: 10/19/22 15:00 Primary Reason for Your Visit: hypoxia, pulmonary hypertension Attending Provider: Amanda Flores Primary Care Provider: Rosana Douglass Consulting Providers: Nuno Ennis; Suki Pemberton Instructions Patient Instructions: Pulmonary Hypertension, ED Dyspnea Discharge Orders/Prescriptions Prescriptions: Continued tamsulosin 0.4 mg capsule 0.4 mg PO DAILY Qty: 30 magnesium oxide 400 mg (241.3 mg magnesium) tablet 400 mg PO DAILY Qty: 90 3RF sertraline 50 mg tablet 75 mg PO QHS Patient Comments: mood pravastatin 40 mg tablet 40 mg PO DAILY Qty: 90 3RF metoprolol tartrate 25 mg tablet 25 mg PO BID Qty: 180 3RF albuterol sulfate 1 INHALER inhaler 1 - 2 puff INHALATION Q4H PRN PRN (Reason: Wheezing) Patient Comments: breathing acetaminophen 500 MG tablet 1,000 mg PO DAILY PRN PRN (Reason: Pain 1-10 Or Fever) Bevespi Aerosphere 9-4.8 mcg HFA aerosol inhaler 2 inh INHALATION BID Patient Comments: Inhale 2 Puffs as instructed twice daily. prednisone 5 mg tablet 7.5 mg PO DAILY Qty: 45 0RF isosorbide mononitrate 30 mg tablet extended release 24 hr 30 mg PO QHS Qty: 90 3RF omeprazole 20 mg capsule,delayed release(DR/EC) 20 mg PO BID Qty: 180 3RF Eliquis 2.5 mg tablet 2.5 mg PO BID Qty: 180 3RF furosemide 40 mg tablet 40 mg PO DAILY Qty: 180 3RF spironolactone 25 mg tablet 12.5 mg PO DAILY Qty: 45 3RF Referrals / Follow Up: Rosana Douglass DO [Primary Care Provider] - Within 1 Week Disposition Disposition (needs filled in before D/C Order can be placed): Home, Self Care Charges/Coding Visit Charges Inpatient E&M: 73351 Disch Hosp >30min
--- NOTE | 2022-10-21 12:59 | PHA.DC.MR.R ---
Pharmacy [place] Med Reconciliation Pharmacy Service has performed discharge medication reconciliation for this patient. No new medications issued at time of nc review. Medications reviewed are from previously reported home medications. The patient's discharge medication list was reviewed for discrepancies and discrepancies were resolved. Medications at Discharge Home Medications albuterol sulfate 90 mcg/actuation aerosol inhaler 1 - 2 puff inhalation Q4H PRN PRN Wheezing 12/04/15 tamsulosin 0.4 mg capsule 0.4 mg PO DAILY prostate #30 caps 09/16/18 acetaminophen 500 mg tablet 1,000 mg PO DAILY PRN PRN Pain 1-10 Or Fever 12/23/19 sertraline 50 mg tablet 75 mg PO QHS depression 11/14/20 magnesium oxide 400 mg (241.3 mg magnesium) tablet 400 mg PO DAILY #90 tabs 07/16/21 isosorbide mononitrate 30 mg tablet,extended release 24 hr 30 mg PO QHS heart #90 tabs 12/23/21 omeprazole 20 mg capsule,delayed release 20 mg PO BID gerd #180 caps 12/23/21 apixaban 2.5 mg tablet (Eliquis) 2.5 mg PO BID #180 tabs 01/20/22 pravastatin 40 mg tablet 40 mg PO DAILY cholesterol #90 tabs 01/20/22 glycopyrrolate 9 mcg-formoterol 4.8 mcg HFA aerosol inhaler (Bevespi Aerosphere) 2 inh inhalation BID COPD 03/27/22 metoprolol tartrate 25 mg tablet 25 mg PO BID #180 tabs 07/17/22 prednisone 5 mg tablet 7.5 mg PO DAILY 07/17/22 furosemide 40 mg tablet 40 mg PO DAILY fluid #180 tabs 09/01/22 spironolactone 25 mg tablet 12.5 mg (1/2 x 25 mg) PO DAILY #45 tabs 09/09/22
--- NOTE | 2022-10-21 15:08 | CASEMGMT ---
Patient has order for discharge. RN CM in to discuss needs at discharge. Patient maintained on home oxygen. Patient has portable tank from home for discharge. Patient denies needs at discharge. Patient denied further questions or concerns.
== END 2022-10-21 15:20 | disposition home or self-care (01) | DRG 189 ==
LOC: ED 16:12 → MS3 16:48 → PCU 17:39
PROVIDERS: Family Medicine; Nurse Practitioner; Admitting Provider Hospitalist; Emergency Provider Emergency Medicine; PCP Internal Medicine; Visit Provider Student in an Organized Health Care Education/Training Program
DX: J96.21 Acute and chronic respiratory failure with hypoxia (principal); J18.9 Pneumonia, unspecified organism; I13.0 Hypertensive heart and chronic kidney disease with heart failure and stage 1 through stage 4 chronic kidney disease, or unspecified chronic kidney disease; J44.1 Chronic obstructive pulmonary disease with (acute) exacerbation; I50.32 Chronic diastolic (congestive) heart failure; I27.21 Secondary pulmonary arterial hypertension; N18.30 Chronic kidney disease, stage 3 unspecified; I48.0 Paroxysmal atrial fibrillation; F32.A Depression, unspecified; K21.00 Gastro-esophageal reflux disease with esophagitis, without bleeding; I25.10 Atherosclerotic heart disease of native coronary artery without angina pectoris; E78.5 Hyperlipidemia, unspecified; F41.9 Anxiety disorder, unspecified; U09.9 Post COVID-19 condition, unspecified; N40.0 Benign prostatic hyperplasia without lower urinary tract symptoms; Z90.2 Acquired absence of lung [part of]; Z95.1 Presence of aortocoronary bypass graft; Z99.81 Dependence on supplemental oxygen; Z79.01 Long term (current) use of anticoagulants; Z79.899 Other long term (current) drug therapy; Z85.118 Personal history of other malignant neoplasm of bronchus and lung; Z87.891 Personal history of nicotine dependence; Z80.1 Family history of malignant neoplasm of trachea, bronchus and lung
CPT/HCPCS: 36415; 36600; 71046; 80048; 80053; 82803; 83880; 84145; 84484; 85025; 87428; 87633; 93005; 94640; 99285; J7050; A4216

== ENCOUNTER 2023-01-12 20:19 | Inpatient (IN) | payer MEDICARE, OTHER, SELFPAY ==
[2023-01-12] VITALS (8 sets, daily range): BP systolic 147–178; BP diastolic 70–92; PULSE 48–76; RESP 14–24; TEMP 36.6–36.7; O2SAT 90–99; BMI 26.9
--- NOTE | 2023-01-12 20:45 | RAD_ITS ---
STUDY: X-RAY CHEST REASON FOR EXAM: Male, 82 years old. cough TECHNIQUE: Single AP portable view of the chest. COMPARISON: 10/18/2022. FINDINGS: Right lower lobe consolidation compatible with pneumonia. Trace left basilar atelectasis versus infiltrate, stable. Multiple nodularities within the right lung field, largest averaging approximately 1.2 cm seen in the right lower lobe. Possible minimal left-sided pleural effusion. Normal size heart with midline sternotomy wires. Normal mediastinum and babak. Normal visualized pulmonary arteries. There is atherosclerotic calcification of the aortic arch with tortuosity. There are diffuse degenerative changes of the visualized thoracic spine. There is degenerative osteoarthritis of the bilateral shoulders. There is no demonstrated abnormality of the visualized soft tissue structures of the upper abdomen. RAD/Chest 1 View (Portable) IMPRESSION: Right lower lobe pneumonia. Minimal left lower lobe atelectasis versus residual infiltrate. Nodularities within the right lung field otherwise incompletely characterized. If indicated, this can be assessed with CT chest. Electronically Signed: Ros Andres MD at 21:23 [facility] ,
[2023-01-12 21:02] LABS: Absolute Lymphocyte Count 0.85 X10^3/uL (0.83-4.51); Absolute Neutrophil Count 4.3 X10^3/uL (2.0-7.7); Basophil# 0.03 X10^3/uL; Basophil% 0.5 % (0-1); Eosinophil# 0.11 X10^3/uL; Eosinophils% 1.9 % (0-5); Hematocrit 42.3 % (40-54); Hemoglobin 13.7 g/dL (13.0-16.5); Lymphocyte # 0.85 X10^3/ul (0.83-4.51); Lymphocyte % 14.8 % (19-41); Mean Corp Hgb Conc 32.4 g/dL (32-36); Mean Corpuscular Hgb 32.2 pg (27.0-32.0); Mean Corpuscular Volume 99.3 fL (80-94); Mean Platelet Vol. 10.2 fl (6.2-12.0); Monocyte% 8.7 % (0-10); NRBC Flagged by Analyzer 0 % (0-5); Neutrophil # 4.25 X10^3/uL (2.7-7.7); Neutrophil % 73.9 % (47-70); Platelet Count 120 K/mm3 (150-450); RBC Distribution Width CV 13.7 % (11.6-14.6); RBC Distribution Width SD 49.5 fl (35.1-43.9); Red Blood Count 4.26 M/mm3 (4.6-6.2); White Blood Count 5.8 K/mm3 (4.4-11.0)
[2023-01-12 21:15] LABS: Anion Gap 6 (5-15); BUN 32 mg/dL (7-18); BUN/Creat Ratio 22.4 RATIO (10-20); Calcium,Total 10.3 mg/dL (8.5-10.1); Chloride 111 mmol/L (98-107); Creatinine, Serum 1.43 mg/dL (0.70-1.30); EST Glomerular Filtration Rate 50 mL/min (>60); Est Glom Filt Rate - Afr Amer 61 mL/min (>60); Estimated Creatinine Clearance 41.83 ml/min; Glucose 130 mg/dL (74-106); Potassium 4.2 mmol/L (3.5-5.1); Sodium Level 143 mmol/L (136-145)
[2023-01-12] MEDS: Ceftriaxone 1 GM/50 ML BAG IV (22:24)
--- NOTE | 2023-01-12 22:40 | EX.ED.DYSGE1 ---
HPI History of Present Illness Chief Complaint: Shortness of Breath Informant: patient, spouse/S.O. and family Narrative Narrative: Patient is a 82-year-old male with past medical history of COPD on 4 L nasal cannula 15/09 with chronic atrial fibrillation on Eliquis. He was admitted to the hospital in September of this year secondary to pneumonia. He states that today he noticed he was having increased shortness of breath despite wearing his oxygen so he increased his liters per minute to 5/6. He states he also noticed that with any motion he had increased shortness of breath and lightheaded sensation. He denies any fevers or chills or known sick contacts but has concern that he is developing infection once again based on his symptoms and therefore comes in for evaluation. [facility] Medical History (HFpEF) heart failure with preserved ejection fraction Acute hypoxemic respiratory failure Aspiration pneumonia Atherosclerotic heart disease of [place]' coronary artery without angina pectoris Bilateral pneumonia Bladder cancer Carotid bruit CKD (chronic kidney disease) CKD (chronic kidney disease) stage 3, GFR 30-59 ml/min COPD (chronic obstructive pulmonary disease) COVID-19 (11/2019) Diverticulosis Essential (primary) hypertension GERD with esophagitis History of nephrolithiasis HLD (hyperlipidemia) Hypoxia Lung cancer Persistent atrial fibrillation (11/2019) Pulmonary nodules Renal calculi Secondary pulmonary arterial hypertension Sepsis Traumatic hematoma of right forearm Home Medications albuterol sulfate 90 mcg/actuation aerosol inhaler 1 - 2 puff inhalation Q4H PRN PRN Wheezing 12/04/15 [History Last Taken 03/27/22] tamsulosin 0.4 mg capsule 0.4 mg PO DAILY prostate #30 caps 09/16/18 [History Last Taken 01/12/23] acetaminophen 500 mg tablet 1,000 mg PO DAILY PRN PRN Pain 1-10 Or Fever 12/23/19 [History Last Taken 03/27/22] sertraline 50 mg tablet 75 mg PO QHS depression 11/14/20 [History Last Taken 01/11/23] magnesium oxide 400 mg (241.3 mg magnesium) tablet 400 mg PO DAILY #90 tabs 07/16/21 [Rx Last Taken 01/12/23] apixaban 2.5 mg tablet (Eliquis) 2.5 mg PO BID #180 tabs 01/20/22 [Rx Last Taken 01/12/23] pravastatin 40 mg tablet 40 mg PO DAILY cholesterol #90 tabs 01/20/22 [Rx Last Taken 01/12/23] glycopyrrolate 9 mcg-formoterol 4.8 mcg HFA aerosol inhaler (Bevespi Aerosphere) 2 inh inhalation BID COPD 03/27/22 [History Last Taken 03/26/22] metoprolol tartrate 25 mg tablet 25 mg PO BID #180 tabs 07/17/22 [Rx Last Taken 01/12/23] spironolactone 25 mg tablet 12.5 mg (1/2 x 25 mg) PO DAILY #45 tabs 09/09/22 [Rx Last Taken 01/12/23] sildenafil (pulm.hypertension) 20 mg tablet 20 mg PO TID pulmonary hypertension 12/29/22 [History Last Taken Unknown] albuterol sulfate 2.5 mg/3 mL (0.083 %) solution for nebulization 2.5 mg continuous nebulization TID 01/02/23 [History Last Taken Unknown] budesonide 0.5 mg/2 mL suspension for nebulization 0.5 mg inhalation DAILY 01/02/23 [History Last Taken Unknown] omeprazole 20 mg capsule,delayed release 20 mg PO BID gerd #180 caps 01/09/23 [Rx Last Taken 01/12/23] Allergy/AdvReac Type Severity Reaction Status Date / Time No Known Allergies Allergy Verified 01/02/23 15:24 Family History Mother Cancer Lung CA Brother Diabetes Surgical History H/O coronary artery bypass surgery (07/20/03) History of left heart catheterization (LHC) (10/18/12) History of lithotripsy (02/2019) History of lobectomy of lung History of tonsillectomy History of transurethral resection of prostate (06/03/06) Social History household members: spouse current occupational status: retired Smoking Status: Former smoker alcohol intake: current alcohol intake frequency: a few times a week Alcohol type: wine substance use type: does not use caffeine: Yes Type: coffee Number of servings: 3 what type of physical activity do you participate in: none seatbelt use: always do you feel safe at home: Yes ROS ROS ED Constitutional Constitutional ED: Denies chills or fever(s) ENT ENT ED: Denies rhinorrhea or sore throat Cardiovascular Cardiovascular: Denies chest pain Respiratory/Chest Respiratory/Chest: Reports cough, dyspnea and dyspnea on exertion Gastrointestinal Gastrointestinal: Denies abdominal pain, diarrhea, nausea or vomiting Genitourinary Genitourinary ED: Denies dysuria Musculoskeletal Musculoskeletal: Denies myalgias Integumentary Denies rash Neurologic Neurologic: Denies headache(s) Hematologic/Lymphatic Hematologic/Lymphatic: Reports easy bleeding and easy bruising EXAM Physical Exam Const Vital Signs: 01/12/23 20:20 01/12/23 20:24 01/12/23 20:30 Temperature 97.8 F 97.8 F Temperature Source Temporal Temporal Pulse Rate 76 71 Respiratory Rate 24 H 15 Respiratory Effort Short of Breath Respiratory Depth Normal Respiratory Pattern Normal Blood Pressure 178/92 H 178/92 H Blood Pressure Mean 120 120 Pulse Ox 90 90 Oxygen Delivery Method Nasal Cannula Nasal Cannula Nasal Cannula Oxygen Flow Rate (L/min) 5 5 4 01/12/23 20:43 01/12/23 20:43 01/12/23 21:24 Temperature 98.1 F Temperature Source Oral Pulse Rate 59 L Respiratory Rate 18 14 Respiratory Effort Respiratory Depth Respiratory Pattern Blood Pressure 147/70 H Blood Pressure Mean 95 Pulse Ox 93 99 Oxygen Delivery Method Nasal Cannula Nasal Cannula Nasal Cannula Oxygen Flow Rate (L/min) 4 5 01/12/23 22:20 Temperature Temperature Source Pulse Rate 48 L Respiratory Rate 16 Respiratory Effort Respiratory Depth Respiratory Pattern Blood Pressure 148/74 H Blood Pressure Mean 98 Pulse Ox 95 Oxygen Delivery Method Nasal Cannula Oxygen Flow Rate (L/min) 5 Positive well nourished and well developed General Appearance ED: well developed and pallor HEENT HEENT Narrative: No tongue or lip swelling no oral lesions no airway edema or compromise Eyes PERRL and EOMs intact bilaterally General Eye ED: Negative for scleral icterus Neck supple and no JVD Chest Wall palpation of chest normal Resp normal respiratory effort Resp Narrative: Breath sounds are diminished throughout with faint rhonchi noted in the right lower lobe. No nasal flaring retractions tachypnea or accessory muscle use Cardio regular rate Rate: other Other Details: Irregularly irregular rhythm with regular rate consistent with history of chronic atrial fibrillation GI normal to inspection, nondistended, normoactive bowel sounds, non-tender and non-distended GI Narrative: No voluntary guarding or rigidity No pulsatile mass or fluid wave Auscultation: normoactive bowel sounds Palpation: soft Extremity normal to inspection Extremity Narrative: No asymmetric edema no pitting edema negative Homans' sign bilaterally Neuro oriented x3 and CN's II-XII intact bilaterally Sensorium / Orientation: alert Psych mental status grossly normal Skin no rashes or lesions noted General Skin Exam: pallor; Negative for jaundice MDM MDM MDM Narrative Medical decision making narrative: Patient is an 82-year-old male who wears oxygen 15/09 but has had to increase his liter flow by 1 to 2 L today secondary to increased shortness of breath. Differential diagnosis is for pneumonia versus pneumothorax versus pleural effusion versus blood loss anemia versus COVID. Lab work shows stable H&H and normal electrolytes without leukocytosis. COVID test is negative as well. However his chest x-ray does show changes consistent with pneumonia. His last hospitalization was in September and he lives at home and therefore I would consider this community-acquired pneumonia not nosocomial. Patient was therefore given Rocephin and Zithromax. He is satting 90 to 95% on 5 L at rest but with minimal motion such as sitting up to the edge of the bed to begin walking he decompensates and his pulse ox drops to 79%. Patient is not septic based on his vitals and white count but with his decompensation with minimal motion I do not feel he is safe for home and therefore discussed the case with the hospitalist who agrees with admission History & Record Review Discussion w/independent historian: Patient, Family and Significant other Lab Data Attestation: I reviewed the patient's lab results. Labs: Laboratory Results - last 24 hr 01/12/23 20:28 WBC 5.8 RBC 4.26 L Hgb 13.7 Hct 42.3 MCV 99.3 H MCH 32.2 H MCHC 32.4 RDW Std Deviation 49.5 H RDW Coeff of Jamar 13.7 Plt Count 120 L MPV 10.2 Immature Gran % (Auto) 0.200 Neut % (Auto) 73.9 H Lymph % (Auto) 14.8 L Carter % (Auto) 8.7 Eos % (Auto) 1.9 Baso % (Auto) 0.5 Absolute Neuts (auto) 4.3 Absolute Lymphs (auto) 0.85 Nucleated RBC % 0 Sodium 143 Potassium 4.2 Chloride 111 H Carbon Dioxide 26.0 Anion Gap 6 BUN 32 H Creatinine 1.43 H Estim Creat Clear Calc 41.83 Est GFR (MDRD) Af Amer 61 Est GFR (MDRD) Non-Af 50 L BUN/Creatinine Ratio 22.4 H Glucose 130 H Calcium 10.3 H Radiography Diagnostic Testing: Clinical Impression(s) from Imaging Studies Chest X-Ray 01/12/23 20:45 IMPRESSION: Right lower lobe pneumonia. Minimal left lower lobe atelectasis versus residual infiltrate. Nodularities within the right lung field otherwise incompletely characterized. If indicated, this can be assessed with CT chest. Electronically Signed: Ros Andres MD at 21:23 EST Reading Location ID and State: [address] [place] [address] , Service support , Chest x-ray as interpreted by the emergency medicine physician reveals right lower lobe haziness consistent with pneumonia Management Discussion w/another healthcare provider: Hospitalist Discharge Plan Dx/Rx/DC Orders Clinical Impression: Current use of half-way anticoagulation, Persistent atrial fibrillation, COPD (chronic obstructive pulmonary disease), Right lower lobe pneumonia Disposition Disposition: Acute Care [facility]
--- NOTE | 2023-01-12 23:13 | HP.PCM.HOS_ITS ---
[facility] - General General Date of Admission: 01/12/23 Date of Service: 01/12/23 Chief Complaint: Shortness of breath HPI Narrative RICKY VANN, is a 82 M Shortness of breath with a past medical history of essential hypertension, hyperlipidemia, chronic atrial fibrillation; on metoprolol and apixaban, history of congestive heart failure with preserved left ventricular ejection fraction, history of coronary artery disease; status post CABG x 6 (2003), history of Left heart catheterization (2011), history of tobacco abuse; with subsequent COPD, chronic hypoxic respiratory failure; on 4 L nasal cannula continuously, history of pneumonia (09/2022), history of bladder cancer, chronic kidney disease stage III, history of COVID-19 in 2019, history of lung cancer, history of bladder cancer, history of GERD; with esophagitis, history of renal calculi, history of BPH; status post TURP, depression and history of secondary pulmonary arterial hypertension; on sildenafil 20 mg p.o. 3 times daily chronically who presents to [facility] ER complaining of shortness of breath. Mr. Vann reports his symptoms began earlier today on 01/12/2023 with the abrupt onset of increasing shortness of breath at rest in spite of wearing his oxygen. He then increased the rate of oxygen delivery to 5 to 6 L/min without improvement so he then activated EMS. He noticed that any amount of activity with causes shortness of breath to worsen along with a lightheaded sensation along with a nonproductive cough. He denies any fevers, chills, nausea, vomiting or known recent sick contacts as he currently lives at home. He states that his doctors have been trying to avoid long-term low-dose steroids but he thinks he has reached the point where they may be necessary. In the ER he was noted to have a chest x-ray positive for right lower lobe infiltrate consistent with community-acquired pneumonia complicated by clinical evidence of acute exacerbation of COPD with [id number] hypoxic respiratory insufficiency and he was then admitted to the general medical floor for ongoing care for stay that is expected to extend beyond 48 hours. [facility] Medical History (HFpEF) heart failure with preserved ejection fraction Acute hypoxemic respiratory failure Aspiration pneumonia Atherosclerotic heart disease of [place] coronary artery without angina pectoris Bilateral pneumonia Bladder cancer Carotid bruit CKD (chronic kidney disease) CKD (chronic kidney disease) stage 3, GFR 30-59 ml/min COPD (chronic obstructive pulmonary disease) COPD exacerbation COVID-19 (11/2019) Diverticulosis Essential (primary) hypertension GERD with esophagitis History of nephrolithiasis HLD (hyperlipidemia) Hypoxia Lung cancer Persistent atrial fibrillation (11/2019) Pulmonary nodules Renal calculi Secondary pulmonary arterial hypertension Sepsis Traumatic hematoma of right forearm Home Medications albuterol sulfate 90 mcg/actuation aerosol inhaler 1 - 2 puff inhalation Q4H PRN PRN Wheezing 12/04/15 [History Last Taken 03/27/22] tamsulosin 0.4 mg capsule 0.4 mg PO DAILY prostate #30 caps 09/16/18 [History Last Taken 01/12/23] acetaminophen 500 mg tablet 1,000 mg PO DAILY PRN PRN Pain 1-10 Or Fever 12/23/19 [History Last Taken 03/27/22] sertraline 50 mg tablet 75 mg PO QHS depression 11/14/20 [History Last Taken 01/11/23] magnesium oxide 400 mg (241.3 mg magnesium) tablet 400 mg PO DAILY #90 tabs 07/16/21 [Rx Last Taken 01/12/23] apixaban 2.5 mg tablet (Eliquis) 2.5 mg PO BID #180 tabs 01/20/22 [Rx Last Taken 01/12/23] pravastatin 40 mg tablet 40 mg PO DAILY cholesterol #90 tabs 01/20/22 [Rx Last Taken 01/12/23] glycopyrrolate 9 mcg-formoterol 4.8 mcg HFA aerosol inhaler (Bevespi Aerosphere) 2 inh inhalation BID COPD 03/27/22 [History Last Taken 03/26/22] metoprolol tartrate 25 mg tablet 25 mg PO BID #180 tabs 07/17/22 [Rx Last Taken 01/12/23] spironolactone 25 mg tablet 12.5 mg (1/2 x 25 mg) PO DAILY #45 tabs 09/09/22 [Rx Last Taken 01/12/23] sildenafil (pulm.hypertension) 20 mg tablet 20 mg PO TID pulmonary hypertension 12/29/22 [History Last Taken Unknown] albuterol sulfate 2.5 mg/3 mL (0.083 %) solution for nebulization 2.5 mg continuous nebulization TID 01/02/23 [History Last Taken Unknown] budesonide 0.5 mg/2 mL suspension for nebulization 0.5 mg inhalation DAILY 01/02/23 [History Last Taken Unknown] omeprazole 20 mg capsule,delayed release 20 mg PO BID gerd #180 caps 01/09/23 [Rx Last Taken 01/12/23] Allergy/AdvReac Type Severity Reaction Status Date / Time No Known Allergies Allergy Verified 01/02/23 15:24 Family History Mother Cancer Lung CA Brother Diabetes Surgical History H/O coronary artery bypass surgery (07/20/03) History of left heart catheterization (LHC) (10/18/12) History of lithotripsy (02/2019) History of lobectomy of lung History of tonsillectomy History of transurethral resection of prostate (06/03/06) Social History household members: spouse current occupational status: retired Smoking Status: Former smoker alcohol intake: current alcohol intake frequency: a few times a week Alcohol type: wine substance use type: does not use caffeine: Yes Type: coffee Number of servings: 3 what type of physical activity do you participate in: none seatbelt use: always do you feel safe at home: Yes ROS ROS Narrative Review of systems: Constitution: Patient denies fevers or chills but does admit to fatigue and malaise. Eyes: Patient denies visual changes. ENT: Patient denies runny nose or sore throat. Cardiovascular: Patient denies chest pain or palpitations. Respiratory: Patient admits to cough shortness of breath at rest and dyspnea with minimal exertion. Gastrointestinal: Patient denies abdominal pain, diarrhea, nausea or vomiting. Genitourinary: Patient denies dysuria or hematuria. Musculoskeletal: Patient denies myalgias. Integumentary: Patient denies rash. Neurologic: Patient denies headache or focal neurologic deficits. Hematologic: Patient does admit to easy bleeding and easy bruising due to apixaban. Allergic: Patient denies urticaria or other allergic symptoms at this time. 14 point review systems otherwise negative except for positives noted above in HPI. Vital Signs Vital Signs Vital Signs: 01/12/23 20:20 01/12/23 20:24 01/12/23 20:30 Temperature 97.8 F 97.8 F Temperature Source Temporal Temporal Pulse Rate 76 71 Respiratory Rate 24 H 15 Respiratory Effort Short of Breath Respiratory Depth Normal Respiratory Pattern Normal Blood Pressure 178/92 H 178/92 H Blood Pressure Mean 120 120 Pulse Ox 90 90 Oxygen Delivery Method Nasal Cannula Nasal Cannula Nasal Cannula Oxygen Flow Rate (L/min) 5 5 4 01/12/23 20:43 01/12/23 20:43 01/12/23 21:24 Temperature 98.1 F Temperature Source Oral Pulse Rate 59 L Respiratory Rate 18 14 Respiratory Effort Respiratory Depth Respiratory Pattern Blood Pressure 147/70 H Blood Pressure Mean 95 Pulse Ox 93 99 Oxygen Delivery Method Nasal Cannula Nasal Cannula Nasal Cannula Oxygen Flow Rate (L/min) 4 5 01/12/23 22:20 Temperature Temperature Source Pulse Rate 48 L Respiratory Rate 16 Respiratory Effort Respiratory Depth Respiratory Pattern Blood Pressure 148/74 H Blood Pressure Mean 98 Pulse Ox 95 Oxygen Delivery Method Nasal Cannula Oxygen Flow Rate (L/min) 5 Weight Weight: 188 lb Body Mass Index (BMI) 26.9 Physical Exam Const alert, oriented x3, no apparent distress and average body habitus Constitutional Narrative: Patient appears to have mildly labored respirations with minimal exertion. General Appearance: cooperative HEENT normocephalic, head/scalp atraumatic, hearing grossly normal bilaterally, moist oral mucous membranes and oropharynx normal Eyes PERRL, EOMs intact bilaterally and conjunctivae normal Neck no lymphadenopathy, supple and no JVD Resp Resp Narrative: Diminished breath sounds throughout with scattered rhonchi. Cardio Cardio Narrative: Irregularly irregular GI normal to inspection, nondistended, normoactive bowel sounds, soft to palpation, non-tender and non-distended Extremity normal to inspection, full ROM and no clubbing, cyanosis or edema Skin Skin Narrative: She has no evidence of rash at this time. Neuro oriented x3, CN's II-XII intact bilaterally, moves all extremities and no focal motor deficits Sensorium / Orientation: awake, alert, oriented to person, oriented to place and oriented to time Speech: speech normal Motor Exam: strength 5/5 throughout Psych Psych Narrative: Patient appears to be anxious when short of breath. Mood & Affect: anxious Results Medical Records Data Attestation: I reviewed the patient's medical records Lab / Micro Data Attestation: I reviewed the patient's lab results. 01/12/23 20:28 01/12/23 20:28 Labs: Laboratory Results - last 24 hr 01/12/23 20:28: WBC 5.8, RBC 4.26 L, Hgb 13.7, Hct 42.3, MCV 99.3 H, MCH 32.2 H, MCHC 32.4, RDW Std Deviation 49.5 H, RDW Coeff of Jamar 13.7, Plt Count 120 L, MPV 10.2, Immature Gran % (Auto) 0.200, Neut % (Auto) 73.9 H, Lymph % (Auto) 14.8 L, [place] % (Auto) 8.7, Eos % (Auto) 1.9, Baso % (Auto) 0.5, Absolute Neuts (auto) 4.3, Absolute Lymphs (auto) 0.85, Nucleated RBC % 0, Sodium 143, Potassium 4.2, Chloride 111 H, Carbon Dioxide 26.0, Anion Gap 6, BUN 32 H, Creatinine 1.43 H, Estim Creat Clear Calc 41.83, Est GFR (MDRD) Af Amer 61, Est GFR (MDRD) Non-Af 50 L, BUN/Creatinine Ratio 22.4 H, Glucose 130 H, Calcium 10.3 H Micro: Microbiology 01/12/23 20:48 Nasal Secretion SARS-CoV-2 & FLU Antigen (Rapid) - Final Imagaing Radiology Impression Chest X-Ray 01/12/23 20:45 IMPRESSION: Right lower lobe pneumonia. Minimal left lower lobe atelectasis versus residual infiltrate. Nodularities within the right lung field otherwise incompletely characterized. If indicated, this can be assessed with CT chest. Electronically Signed: Ros Andres MD at 21:23 EST , Assessment & Plan Assessment/Plan (1) Right lower lobe pneumonia: QUALIFIERS: Pneumonia type: due to unspecified organism Qualified Code(s): J18.9 - Pneumonia, unspecified organism (2) COPD exacerbation: PLAN: Plan 1. Right lower lobe pneumonia - Admit to general medical floor. Continue broad-spectrum antibiotics and await culture and sensitivity data to narrow antibiotic spectrum. Give Tylenol as needed for level 1-10 out of 10 pain or fever. 2. Acute exacerbation of COPD with [id number] hypoxic respiratory insufficiency arising from #1 - Resume IV Solu-Medrol begun in the ER. Also give scheduled and as needed nebulizer treatments. 3. Secondary pulmonary hypertension; on sildenafil 20 mg p.o. 3 times daily complicating #1 & #2 - Continue sildenafil as previous. 4. Essential hypertension - Resume home medications as previous. Give IV hydralazine as needed for systolic blood pressure greater than 160 mmHg systolic. 5. Hyperlipidemia - Continue statin as previous. 6. Chronic atrial fibrillation; on metoprolol and apixaban - Resume current regimen. 7. History of coronary artery disease; status post CABG x6 (2003) with history of CHF with preserved left ventricular ejection fraction - Noted. Stable at this time. 8. DVT prophylaxis - Patient is already on apixaban for #6 which will be continued. Total time: Approximately 55 minutes. Charges/Coding Visit Charges Inpatient E&M: 69454 Init Hosp L2
[2023-01-12] MEDS: Azithromycin 500 MG in Dextrose 5%-Water (250mL Bag) 250 ML 250 MG IV (23:24)
[2023-01-12] MEDS: MethylPREDNISolone 125 MG/2 ML Vial IV (23:25)
[2023-01-13] VITALS (13 sets, daily range): BP systolic 123–157; BP diastolic 61–83; PULSE 60–80; RESP 15–21; TEMP 36.3–36.6; O2SAT 90–97; BMI 27.2
[2023-01-13] MEDS: Budesonide Respules 0.5 MG/2 ML AMPUL.NEB. INHALATION (07:21)
[2023-01-13] MEDS: Ipratropium/Albuterol Sulfate 3 ML AMPUL.NEB INHALATION ×3 (07:21→19:03)
[2023-01-13] MEDS: Tamsulosin HCl 0.4 MG Capsule PO (09:09)
[2023-01-13] MEDS: APIXABAN 2.5 MG TABLET (WCH) PO ×2 (09:09→21:04)
[2023-01-13] MEDS: Magnesium Chloride 64 MG Delay Rel.Tablet 128 MG PO (09:09)
[2023-01-13] MEDS: Spironolactone 25 MG Tablet 12.5 MG PO (09:10)
[2023-01-13] MEDS: Metoprolol Tartrate 25 MG Tablet PO ×2 (09:11→21:03)
[2023-01-13] MEDS: Pravastatin 40 MG Tablet PO (09:11)
[2023-01-13] MEDS: MethylPREDNISolone 125 MG/2 ML Vial 60 MG IV ×2 (09:16→21:04)
[2023-01-13] MEDS: 0.9% Saline Lock 10 ML Syringe IV ×2 (09:16→21:02)
[2023-01-13] MEDS: Pantoprazole Sodium 20 MG Tablet PO ×2 (09:22→21:03)
--- NOTE | 2023-01-13 11:17 | PCM.PN.HOSP ---
Subjective Subjective Doing well, no issues overnight. Baseline oxygen of 4 L currently on 6-7 Objective Data Objective Data Vital Signs: Vital Signs Temp Pulse Resp BP Pulse Ox O2 Del Method O2 Flow Rate 97.8 F 80 18 123/73 H 92 Nasal Cannula 6 01/13/23 09:05 01/13/23 09:11 01/13/23 09:05 01/13/23 09:11 01/13/23 09:05 01/13/23 09:05 01/13/23 09:05 Oxygen Flow Rate (L/min) 6 Oxygen Delivery Method Nasal Cannula Weight: 190 lb 0.615 oz Body Mass Index (BMI) 27.2 Intake & Output: Intake and Output for Last 24 Hours 01/12/23 01/13/23 01/14/23 03:59 03:59 03:59 Intake Total 305 / 305 Output Total 550 / 550 Balance 305 / 305 -550 / -550 Lab / Micro Data 01/12/23 20:28 01/12/23 20:28 Labs: Laboratory Results - last 24 hr 01/12/23 20:28: WBC 5.8, RBC 4.26 L, Hgb 13.7, Hct 42.3, MCV 99.3 H, MCH 32.2 H, MCHC 32.4, RDW Std Deviation 49.5 H, RDW Coeff of Jamar 13.7, Plt Count 120 L, MPV 10.2, Immature Gran % (Auto) 0.200, Neut % (Auto) 73.9 H, Lymph % (Auto) 14.8 L, [place] % (Auto) 8.7, Eos % (Auto) 1.9, Baso % (Auto) 0.5, Absolute Neuts (auto) 4.3, Absolute Lymphs (auto) 0.85, Nucleated RBC % 0, Sodium 143, Potassium 4.2, Chloride 111 H, Carbon Dioxide 26.0, Anion Gap 6, BUN 32 H, Creatinine 1.43 H, Estim Creat Clear Calc 41.83, Est GFR (MDRD) Af Amer 61, Est GFR (MDRD) Non-Af 50 L, BUN/Creatinine Ratio 22.4 H, Glucose 130 H, Calcium 10.3 H Micro: Microbiology 01/12/23 20:48 Nasal Secretion SARS-CoV-2 & FLU Antigen (Rapid) - Final Radiography Diagnostic Testing: Radiology Impression Chest X-Ray 01/12/23 20:45 IMPRESSION: Right lower lobe pneumonia. Minimal left lower lobe atelectasis versus residual infiltrate. Nodularities within the right lung field otherwise incompletely characterized. If indicated, this can be assessed with CT chest. Electronically Signed: Ros Andres MD at 21:23 EST Reading Location ID and State: [facility] / [place] , Service support , Physical Exam Narrative General: Alert, Oriented x3, Cooperative, No apparent distress HEENT: Atraumatic, PERRLA, EOMI, Normocephalic Oral: Moist Mucosa Neck: Supple, No JVD Lungs: Diminished, Normal air movement, No rhonchi, No wheeze, No rales Cardiovascular: Regular rate, Regular Rhythm, Normal S1, Normal S2, No murmurs Abdomen: Soft, Non Tender, Non-Distended, No Hepato-splenomegaly Extremities: No edema, Capillary Refill Less than 3 Seconds Skin: No rashes, No breakdown Musculoskeletal: No Tenderness to Palpation of Joints or Extremities Neurological: Cranial nerves II-XII grossly intact, Motor Exam 5/5 strength throughout, Sensory exam intact to light touch and pain Psych/Mental Status: Normal Affect, Appropriate Assessment & Plan Assessment/Plan (1) Right lower lobe pneumonia: QUALIFIERS: Pneumonia type: due to unspecified organism Qualified Code(s): J18.9 - Pneumonia, unspecified organism (2) COPD exacerbation: PLAN: Plan 1. Right lower lobe pneumonia with acute COPD exacerbation in the setting of chronic hypoxic respiratory failure/pulmonary hypertension ? We will continue with antibiotics ? Baseline oxygen requirements around 4 L nasal cannula continuously currently up to 6 or 7 ? She does have what sounds like right-sided heart cath with pulmonary hypertension ? We will continue with his home medications ? Continue with IV Solu-Medrol as well as inhalers 2. HTN/HLD/chronic A-fib/CAD status post CABG/chronic diastolic CHF with pulmonary hypertension ? Continue with his home medications ? We will monitor his blood pressures and make adjustments as necessary ? Continue with Eliquis at a reduced dose secondary to his renal function consistently being greater than 1.5 ? Continue with statin 3. Anxiety/depression ? Stable ? Continue with Zoloft 4. BPH ? Stable ? Continue with Flomax DVT: Eliquis Charges/Coding Visit Charges Inpatient E&M: 03061 Subs Hosp L2
[2023-01-13] MEDS: SILDENAFIL CITRATE 20 MG TABLET PO ×2 (12:21→21:04)
--- NOTE | 2023-01-13 13:45 | CASEMGMT ---
RN?CM?ANESTHESIA ASSOCIATE?CM?to room to meet with patient for initial transition planning/care coordination?assessment.?RN?CM?introduced self and role at [facility].? Pt voices understanding and consents to?assessment?at this time.? Pt resting in bed in no distress at this time.? Pt is A/O at this time and answers all questions appropriately.?? Care providers, pharmacy, and demographics verified/updated at this time. PCP:Dr Douglass Specialists:Dr Viera (Cloth Carrier), Dr Meseret Best (Delivery Rep). Pt states he also sees a transfer iron operator in [place], he thinks is spelled Dr Bhandari, but he is not sure. Preferred Pharmacy: [facility] Retail @ discharge Insurance:[facility], [place], Plan F Prescription Benefit:?Yes Living Will/HPOA: Has both LW and HCPOA, who is his , Estrella DENNIS: Estrella and two daughters, Rossy and Roopa Living Arrangements:Patient lives at home with his in a one story home with a basement and 2 steps and a railing to enter. Reports some difficulty using steps into home as well as steps into basement. Independent in all ADLs, but shortness of breath with ambulation. Both pt and go grocery shopping and pt states he makes most of the meals. Pt manages his own medications. Transportation: Pt and both drive DME: Pt states he has shower benches, raised toilet seat, grab bars, Pulse Ox, nebulizer, BP machine, scale and oxygen at 4 Lpm continuous through [employer] and states can bring in portable O2 tank for him to go home on @ discharge. Per Clau @ [facility] [place], current orders are 5 l/m continuous. HHC/SNF: Denies any previous SNF. Patient has had [facility] HHC in the past. Pt declines need for HHC or Pt Link. Palliative: Discussed Palliative care w/pt and questions answered. Pt states he is not interested in a referral at this time, but states he will think about it and will discuss w/his . Palliative info sheet provided. Pt voices appreciation. Pt wishes to return home and states has no concerns with going home at time of discharge.?CM?to follow for any increase in home oxygen needs and any further discharge planning/needs.? Pt voices no further concerns/needs at this time.? Advised pt to ask for?CM?if any further questions/concerns/needs arise.? Voices understanding. Plan: Home. Follow for any increase in Home oxygen needs. Earle BSN RNCM
[2023-01-13] MEDS: Ceftriaxone 1 GM/50 ML BAG IV (20:59)
[2023-01-13] MEDS: Sertraline 50 MG Tablet 75 MG PO (21:03)
[2023-01-13] MEDS: Sodium Chloride 0.65% 1 SPRAY SPRAY.BTL NASAL (21:10)
[2023-01-13] MEDS: Azithromycin 500 MG in Dextrose 5%-Water (250mL Bag) 250 ML 250 MG IV (22:12)
[2023-01-14] VITALS (14 sets, daily range): BP systolic 136–146; BP diastolic 66–77; PULSE 59–75; RESP 15–20; TEMP 36.3–36.6; O2SAT 92–96
[2023-01-14 04:12] LABS: Absolute Lymphocyte Count 0.43 X10^3/uL (0.83-4.51); Absolute Neutrophil Count 7.1 X10^3/uL (2.0-7.7); Basophil# 0.01 X10^3/uL; Basophil% 0.1 % (0-1); Hematocrit 39.6 % (40-54); Hemoglobin 12.8 g/dL (13.0-16.5); Lymphocyte # 0.43 X10^3/ul (0.83-4.51); Lymphocyte % 5.5 % (19-41); Mean Corp Hgb Conc 32.3 g/dL (32-36); Mean Corpuscular Hgb 31.7 pg (27.0-32.0); Mean Platelet Vol. 10.5 fl (6.2-12.0); Monocyte# 0.25 X10^3/uL; Monocyte% 3.2 % (0-10); NRBC Flagged by Analyzer 0 % (0-5); Neutrophil # 7.11 X10^3/uL (2.7-7.7); Neutrophil % 90.7 % (47-70); POSITIVE DIFFERENTIAL YES; Platelet Count 125 K/mm3 (150-450); RBC Distribution Width CV 13.5 % (11.6-14.6); RBC Distribution Width SD 48.8 fl (35.1-43.9); Red Blood Count 4.04 M/mm3 (4.6-6.2); White Blood Count 7.8 K/mm3 (4.4-11.0)
[2023-01-14 04:15] LABS: Differential Indicated SCAN CRITERIA MET
[2023-01-14 04:43] LABS: Anion Gap 6 (5-15); BUN 38 mg/dL (7-18); BUN/Creat Ratio 32.5 RATIO (10-20); Chloride 113 mmol/L (98-107); Creatinine, Serum 1.17 mg/dL (0.70-1.30); EST Glomerular Filtration Rate 64 mL/min (>60); Est Glom Filt Rate - Afr Amer 77 mL/min (>60); Estimated Creatinine Clearance 51.13 ml/min; Glucose 134 mg/dL (74-106); Potassium 4.6 mmol/L (3.5-5.1); Sodium Level 141 mmol/L (136-145)
[2023-01-14 05:33] LABS: Differential Comment SCANNED
[2023-01-14] MEDS: SILDENAFIL CITRATE 20 MG TABLET PO ×3 (05:34→21:28)
[2023-01-14] MEDS: Ipratropium/Albuterol Sulfate 3 ML AMPUL.NEB INHALATION ×3 (07:00→19:07)
[2023-01-14] MEDS: Budesonide Respules 0.5 MG/2 ML AMPUL.NEB. INHALATION (07:00)
[2023-01-14] MEDS: Magnesium Chloride 64 MG Delay Rel.Tablet 128 MG PO (08:53)
[2023-01-14] MEDS: Pantoprazole Sodium 20 MG Tablet PO ×2 (08:54→21:20)
[2023-01-14] MEDS: Tamsulosin HCl 0.4 MG Capsule PO (08:54)
[2023-01-14] MEDS: Metoprolol Tartrate 25 MG Tablet PO ×2 (08:54→21:20)
[2023-01-14] MEDS: Spironolactone 25 MG Tablet 12.5 MG PO (08:54)
[2023-01-14] MEDS: Pravastatin 40 MG Tablet PO (08:54)
[2023-01-14] MEDS: 0.9% Saline Lock 10 ML Syringe IV ×2 (09:06→11:39)
[2023-01-14] MEDS: MethylPREDNISolone 125 MG/2 ML Vial 60 MG IV ×2 (09:06→21:27)
[2023-01-14] MEDS: APIXABAN 2.5 MG TABLET (WCH) PO ×2 (09:14→21:28)
--- NOTE | 2023-01-14 10:50 | PN.HOSP_ITS ---
Subjective Subjective Doing well, no issues overnight. Still gets short of breath with minimal activity Objective Data Objective Data Vital Signs: Vital Signs Temp Pulse Resp BP Pulse Ox O2 Del Method O2 Flow Rate 97.8 F 68 18 136/70 H 94 Nasal Cannula 5 01/14/23 08:43 01/14/23 08:54 01/14/23 08:43 01/14/23 08:54 01/14/23 09:16 01/14/23 09:16 01/14/23 09:16 FiO2 96 01/14/23 08:46 Oxygen Flow Rate (L/min) 5 Oxygen Delivery Method Nasal Cannula Weight: 190 lb 0.615 oz Body Mass Index (BMI) 27.2 Intake & Output: Intake and Output for Last 24 Hours 01/13/23 01/14/23 01/15/23 03:59 03:59 03:59 Intake Total 305 / 305 1230 / 1230 Output Total 650 / 650 650 / 650 Balance 305 / 305 580 / 580 -650 / -650 Lab / Micro Data 01/14/23 03:45 01/14/23 03:45 Labs: Laboratory Results - last 24 hr 01/14/23 03:45: WBC 7.8, RBC 4.04 L, Hgb 12.8 L, Hct 39.6 L, MCV 98.0 H, MCH 31.7, MCHC 32.3, RDW Std Deviation 48.8 H, RDW Coeff of Jamar 13.5, Plt Count 125 L, MPV 10.5, Immature Gran % (Auto) 0.500, Neut % (Auto) 90.7 H, Lymph % (Auto) 5.5 L, [place] % (Auto) 3.2, Eos % (Auto) 0.0, Baso % (Auto) 0.1, Absolute Neuts (auto) 7.1, Absolute Lymphs (auto) 0.43 L, Nucleated RBC % 0, Differential Comment SCANNED, Sodium 141, Potassium 4.6, Chloride 113 H, Carbon Dioxide 22.0, Anion Gap 6, BUN 38 H, Creatinine 1.17, Estim Creat Clear Calc 51.13, Est GFR (MDRD) Af Amer 77, Est GFR (MDRD) Non-Af 64, BUN/Creatinine Ratio 32.5 H, Glucose 134 H, Calcium 10.0 Micro: Microbiology 01/12/23 20:48 Nasal Secretion SARS-CoV-2 & FLU Antigen (Rapid) - Final Physical Exam Narrative General: Alert, Oriented x3, Cooperative, No apparent distress HEENT: Atraumatic, PERRLA, EOMI, Normocephalic Oral: Moist Mucosa Neck: Supple, No JVD Lungs: Diminished, Normal air movement, No rhonchi, No wheeze, No rales Cardiovascular: Regular rate, Regular Rhythm, Normal S1, Normal S2, No murmurs Abdomen: Soft, Non Tender, Non-Distended, No Hepato-splenomegaly Extremities: No edema, Capillary Refill Less than 3 Seconds Skin: No rashes, No breakdown Musculoskeletal: No Tenderness to Palpation of Joints or Extremities Neurological: Cranial nerves II-XII grossly intact, Motor Exam 5/5 strength throughout, Sensory exam intact to light touch and pain Psych/Mental Status: Normal Affect, Appropriate Assessment & Plan Assessment/Plan (1) Right lower lobe pneumonia: QUALIFIERS: Pneumonia type: due to unspecified organism Qualified Code(s): J18.9 - Pneumonia, unspecified organism (2) COPD exacerbation: PLAN: Plan 1. Right lower lobe pneumonia with acute COPD exacerbation in the setting of chronic hypoxic respiratory failure/pulmonary hypertension ? We will continue with antibiotics ? Baseline oxygen requirements around 4 L nasal cannula continuously currently up to 5 L ?He did have what sounds like right-sided heart cath with pulmonary hypertension ? We will continue with his home medications, as his renal function is normal we will trial him on x1 dose of Lasix see if this helps improves his respiratory function, he is on Aldactone ? Continue with IV Solu-Medrol as well as inhalers 2. HTN/HLD/chronic A-fib/CAD status post CABG/chronic diastolic CHF with pulmonary hypertension ? Continue with his home medications ? We will monitor his blood pressures and make adjustments as necessary ? Continue with Eliquis at a reduced dose secondary to his renal function consistently being greater than 1.5 ? Continue with statin 3. Anxiety/depression ? Stable ? Continue with Zoloft 4. BPH ? Stable ? Continue with Flomax DVT: Eliquis Charges/Coding Visit Charges Inpatient E&M: 90131 Subs Hosp L2
[2023-01-14] MEDS: Furosemide 40 MG/4 ML Vial IV (11:39)
[2023-01-14] MEDS: BENZOCAINE/MENTHOL 1 LOZENGE MUCOUS MEM ×2 (19:02→21:28)
[2023-01-14] MEDS: Sertraline 50 MG Tablet 75 MG PO (21:25)
[2023-01-14] MEDS: Azithromycin 500 MG in Dextrose 5%-Water (250mL Bag) 250 ML 250 MG IV (21:26)
[2023-01-14] MEDS: Ceftriaxone 1 GM/50 ML BAG IV (21:27)
[2023-01-15] VITALS (14 sets, daily range): BP systolic 149–155; BP diastolic 68–75; PULSE 61–77; RESP 16–20; TEMP 36.4–36.7; O2SAT 84–95
[2023-01-15] MEDS: BENZOCAINE/MENTHOL 1 LOZENGE MUCOUS MEM ×4 (02:27→21:29)
[2023-01-15] MEDS: SILDENAFIL CITRATE 20 MG TABLET PO ×3 (05:23→21:26)
[2023-01-15 06:49] LABS: Absolute Lymphocyte Count 0.42 X10^3/uL (0.83-4.51); Absolute Neutrophil Count 9.1 X10^3/uL (2.0-7.7); Basophil# 0.01 X10^3/uL; Basophil% 0.1 % (0-1); Hematocrit 43.3 % (40-54); Hemoglobin 13.9 g/dL (13.0-16.5); Lymphocyte # 0.42 X10^3/ul (0.83-4.51); Lymphocyte % 4.3 % (19-41); Mean Corp Hgb Conc 32.1 g/dL (32-36); Mean Corpuscular Hgb 31.8 pg (27.0-32.0); Mean Corpuscular Volume 99.1 fL (80-94); Mean Platelet Vol. 10.5 fl (6.2-12.0); Monocyte# 0.27 X10^3/uL; Monocyte% 2.7 % (0-10); NRBC Flagged by Analyzer 0 % (0-5); Neutrophil # 9.07 X10^3/uL (2.7-7.7); Neutrophil % 92.4 % (47-70); POSITIVE DIFFERENTIAL YES; Platelet Count 147 K/mm3 (150-450); RBC Distribution Width CV 13.8 % (11.6-14.6); RBC Distribution Width SD 50.7 fl (35.1-43.9); Red Blood Count 4.37 M/mm3 (4.6-6.2); White Blood Count 9.8 K/mm3 (4.4-11.0)
[2023-01-15 06:52] LABS: Differential Indicated SCAN CRITERIA MET
[2023-01-15] MEDS: Budesonide Respules 0.5 MG/2 ML AMPUL.NEB. INHALATION (07:04)
[2023-01-15] MEDS: Ipratropium/Albuterol Sulfate 3 ML AMPUL.NEB INHALATION ×3 (07:05→18:06)
[2023-01-15 07:10] LABS: Differential Comment SCANNED
[2023-01-15 07:48] LABS: Anion Gap 4 (5-15); BUN 46 mg/dL (7-18); BUN/Creat Ratio 35.7 RATIO (10-20); Calcium,Total 10.5 mg/dL (8.5-10.1); Chloride 109 mmol/L (98-107); Creatinine, Serum 1.29 mg/dL (0.70-1.30); EST Glomerular Filtration Rate 57 mL/min (>60); Est Glom Filt Rate - Afr Amer 69 mL/min (>60); Estimated Creatinine Clearance 46.37 ml/min; Glucose 133 mg/dL (74-106); Potassium 4.3 mmol/L (3.5-5.1); Sodium Level 139 mmol/L (136-145)
[2023-01-15] MEDS: Pravastatin 40 MG Tablet PO (09:56)
[2023-01-15] MEDS: Metoprolol Tartrate 25 MG Tablet PO ×2 (09:56→21:28)
[2023-01-15] MEDS: Magnesium Chloride 64 MG Delay Rel.Tablet 128 MG PO (09:56)
[2023-01-15] MEDS: Pantoprazole Sodium 20 MG Tablet PO ×2 (09:56→21:27)
[2023-01-15] MEDS: Tamsulosin HCl 0.4 MG Capsule PO (09:57)
[2023-01-15] MEDS: Spironolactone 25 MG Tablet 12.5 MG PO (09:57)
[2023-01-15] MEDS: APIXABAN 2.5 MG TABLET (WCH) PO ×2 (09:57→21:26)
[2023-01-15] MEDS: MethylPREDNISolone 125 MG/2 ML Vial 60 MG IV ×2 (09:58→21:25)
--- NOTE | 2023-01-15 12:53 | CT_ITS ---
INDICATION: Hypoxia EXAMINATION: CT CHEST WITH CONTRAST - CT Chest W/ Contrast Injection TECHNIQUE: Helically acquired images were obtained of the chest following IV contrast. A radiation dose optimization technique was used for this scan. IV Contrast dosage and agent: 100 mL Isovue-370 contrast COMPARISON: 06/21/2020 FINDINGS: LUNGS, PLEURA AND LARGE AIRWAYS: Lung windows show underlying emphysema with nonspecific pleural thickening in both hemithoraces. There is a tiny pleural-based nodule in the left upper lobe measuring 3 mm on axial image 24. This is too small to characterize. No organized infiltrate, there is a stable 1 cm calcified granuloma in the right lower lobe on axial image 65. There are minimal small effusions and associated atelectasis. THYROID: No thyroid lesions. HEART AND PERICARDIUM: There has been a remote CABG VESSELS: Thoracic aorta is not dilated. No aortic dissection. No obvious central pulmonary embolism although this study was not performed with the pulmonary embolism protocol. MEDIASTINUM AND JAYLAN: No mediastinal or hilar adenopathy. Esophagus is unremarkable. There is a retrocardiac hiatal hernia UPPER ABDOMEN: Limited cuts through the upper abdomen show simple right renal cysts. No specific follow-up needed BONES: Bony structures show degenerative change CT/Chest WITH Contrast IMPRESSION: Underlying emphysema with nonspecific pleural thickening, small pleural effusions and bibasilar atelectasis. No organized infiltrate. There is a stable 1 cm calcified granuloma in the right lower lobe and a too small to characterize 3 mm pleural-based nodule in the left upper lobe. No suspicious adenopathy Remote CABG Hiatal hernia Electronically Signed: Chaim Bah MD at 14:27 EST ,
--- NOTE | 2023-01-15 12:54 | PN.HOSP_ITS ---
Reason for Visit Reason for Visit: Shortness of breath Subjective Subjective Patient is an 82-year-old white male who presented to emergency department at [facility] on 01/12/2023 complaining of worsening shortness of breath. Patient has a history of COPD and chronic hypoxic respiratory failure which requires 4 L nasal cannula at baseline. He reported on presentation that he was having worsening exertional dyspnea and developed more significant dyspnea at rest on the day of presentation. He increased his oxygen delivery from 5 to 6 L and had no improvement so he came to the emergency department. He is also had a nonproductive cough but denied fever or chills. He had no recent sick contacts of which she was aware however he reports today his has developed a cold. In the emergency department he was noted to have a chest x-ra y that demonstrated a right lower lobe infiltrate and he required increasing oxygen amounts from his baseline of 4 L up to is much as 7 L at rest during his hospital course. He has been treated with azithromycin as well as ceftriaxone but having ongoing coughing and exertional shortness of breath. He is also been on steroids throughout his hospital course. Today he states he feels overall better since presenting however he does complain of pretty significant shortness of breath with exertion. We did an ambulatory pulse ox and he still is dropping his oxygen saturations into the mid 80s on his baseline oxygen with exertion. Other than his dyspnea with exertion he has no specific complaints. Objective Data Objective Data Vital Signs: Vital Signs Temp Pulse Resp BP Pulse Ox O2 Del Method O2 Flow Rate 97.6 F L 70 18 155/68 H 84 Nasal Cannula 5 01/15/23 08:02 01/15/23 09:56 01/15/23 08:02 01/15/23 08:02 01/15/23 12:08 01/15/23 08:02 01/15/23 12:08 FiO2 96 01/14/23 08:46 Oxygen Flow Rate (L/min) [ 5 AMBULATING with Oxygen #2] Oxygen Flow Rate (L/min) [ 4 AMBULATING with Oxygen #1] Oxygen Flow Rate (L/min) 4 Oxygen Delivery Method Nasal Cannula Weight: 86.2 kg Body Mass Index (BMI) 27.2 Intake & Output: Intake and Output for Last 24 Hours 01/13/23 01/14/23 01/15/23 23:59 23:59 23:59 Intake Total 1230 / 1230 1535 / 1780 870 / 870 Output Total 650 / 650 2700 / 3100 1350 / 1350 Balance 580 / 580 -1165 / -1320 -480 / -480 Lab / Micro Data 01/15/23 05:50 01/15/23 05:50 Labs: Laboratory Results - last 24 hr 01/15/23 05:50: WBC 9.8, RBC 4.37 L, Hgb 13.9, Hct 43.3, MCV 99.1 H, MCH 31.8, MCHC 32.1, RDW Std Deviation 50.7 H, RDW Coeff of Jamar 13.8, Plt Count 147 L, MPV 10.5, Immature Gran % (Auto) 0.500, Neut % (Auto) 92.4 H, Lymph % (Auto) 4.3 L, [place] % (Auto) 2.7, Eos % (Auto) 0.0, Baso % (Auto) 0.1, Absolute Neuts (auto) 9.1 H, Absolute Lymphs (auto) 0.42 L, Nucleated RBC % 0, Differential Comment SCANNED, Sodium 139, Potassium 4.3, Chloride 109 H, Carbon Dioxide 26.0, Anion Gap 4 L, BUN 46 H, Creatinine 1.29, Estim Creat Clear Calc 46.37, Est GFR (MDRD) Af Amer 69, Est GFR (MDRD) Non-Af 57 L, BUN/Creatinine Ratio 35.7 H, Glucose 133 H, Calcium 10.5 H Micro: Microbiology 01/12/23 20:48 Nasal Secretion SARS-CoV-2 & FLU Antigen (Rapid) - Final Physical Exam Const alert, oriented x3 and well nourished Constitutional Narrative: Very pleasant, older, white male, sitting up in bed, appears comfortable and nontoxic, currently on 4 L nasal cannula at rest, watching television HEENT head/scalp atraumatic and moist oral mucous membranes HEENT Narrative: Dentition is poor, Mallampati is 1, no thrush Resp normal respiratory effort, no retractions and no use of accessory muscles Resp Narrative: Diffusely diminished with crackles at bilateral bases more notably on the right Auscultation: crackles; Negative for rhonchi or wheezes Cardio regular rate, regular rhythm, S1 normal heart sound, S2 normal heart sound, no murmurs, no rub, no gallops and no clicks GI normal to inspection, nondistended, normoactive bowel sounds, soft to palpation and non-tender Extremity no clubbing, cyanosis or edema Extremity Narrative: Pedal pulses are 2+ Neuro oriented x3, moves all extremities and no focal motor deficits Speech: speech normal Psych affect normal Psych Narrative: Eye contact is good, patient interacts appropriately, very pleasant Assessment & Plan Assessment/Plan (1) Right lower lobe pneumonia: QUALIFIERS: Pneumonia type: due to unspecified organism Qualified Code(s): J18.9 - Pneumonia, unspecified organism (2) Hypoxia: (3) COPD with acute exacerbation: PLAN: Plan Acute hypoxia on chronic hypoxic respiratory failure secondary to right lower lobe pneumonia/acute exacerbation of COPD -Baseline oxygen requirement is 4 L nasal cannula -Patient currently on this at rest however has significant exertional hypoxia dropping down in the mid 80s on his baseline 4 L -Will continue IV antibiotics but transition to pseudomonal coverage with history of respiratory disease -Discontinue azithromycin and ceftriaxone and add Levaquin -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--> May need to sitter this is a possibility -Continue Solu-Medrol -Continue aggressive pulmonary toilet with nebulizers, I-S, Acapella -COVID and respiratory viral panel are both negative -Check CTA of the chest with ongoing exertional hypoxia and shortness of breath -May need to consider pulmonary consultation depending on progress and CT fin dingdenae -Patient follows as an outpatient at [facility] for pulmonary medicine CKD stage II -Renal function is stable -Continue to monitor -Will give IV fluids x 1 L as I am giving him contrast for CT of the chest Pulmonary hypertension--> suspect who group 2 -Continue home medication -It looks like exertional dyspnea has been a problem for some time -Continue outpatient follow-up with pulmonary medicine as ongoing outpatient workup is in progress History of stage Ib lung cancer -Status post left lower lobe lobectomy in 2007 COPD -Hold home inhalers -Treatment as above Chronic HFpEF-compensated -Continue home diuretics CAD/HTN/HPL/persistent A-fib -CABG x6: Sequential JUAREZ-Ramus and D1, BUD to LAD, SVG -D2, Sequential SVG-PDA and LCx 07/20/2003 -Stress test in 2020 that was negative for ischemia -Continue Eliquis -Continue isosorbide mononitrate -Continue home metoprolol -Continue home pravastatin -Continue home Aldactone -Heart rate is currently controlled GERD -Continue home PPI BPH -Cont Flomax DVT prophylaxis -Continue Eliquis CODE STATUS -Unclear at this time--> previous CODE STATUS at last admission was full code Charges/Coding Visit Charges Inpatient E&M: 01478 Subs Hosp L2
[2023-01-15] MEDS: 0.9% Normal Saline (1000mL) 1,000 ML 75 ML IV (14:04)
[2023-01-15] MEDS: levoFLOXacin IV 750 MG/150 ML BAG 100 MG IV (14:13)
[2023-01-15] MEDS: Sertraline 50 MG Tablet 75 MG PO (21:26)
[2023-01-16] VITALS (9 sets, daily range): BP systolic 124–143; BP diastolic 56–78; PULSE 65–83; RESP 14–20; TEMP 36.9–37.1; O2SAT 5–96
[2023-01-16 05:51] LABS: Absolute Lymphocyte Count 0.27 X10^3/uL (0.83-4.51); Absolute Neutrophil Count 6.3 X10^3/uL (2.0-7.7); Hematocrit 41.2 % (40-54); Hemoglobin 13.5 g/dL (13.0-16.5); Lymphocyte # 0.27 X10^3/ul (0.83-4.51); Lymphocyte % 3.9 % (19-41); Mean Corp Hgb Conc 32.8 g/dL (32-36); Mean Corpuscular Hgb 32.1 pg (27.0-32.0); Mean Corpuscular Volume 97.9 fL (80-94); Mean Platelet Vol. 9.8 fl (6.2-12.0); Monocyte# 0.25 X10^3/uL; Monocyte% 3.6 % (0-10); NRBC Flagged by Analyzer 0 % (0-5); Neutrophil # 6.32 X10^3/uL (2.7-7.7); Neutrophil % 91.8 % (47-70); POSITIVE DIFFERENTIAL YES; Platelet Count 128 K/mm3 (150-450); RBC Distribution Width CV 13.4 % (11.6-14.6); RBC Distribution Width SD 48.5 fl (35.1-43.9); Red Blood Count 4.21 M/mm3 (4.6-6.2); White Blood Count 6.9 K/mm3 (4.4-11.0)
[2023-01-16 05:58] LABS: Differential Indicated SCAN CRITERIA MET
[2023-01-16] MEDS: SILDENAFIL CITRATE 20 MG TABLET PO ×2 (06:05→13:53)
[2023-01-16] MEDS: BENZOCAINE/MENTHOL 1 LOZENGE MUCOUS MEM (06:06)
[2023-01-16 06:29] LABS: Differential Comment SCANNED
[2023-01-16 06:45] LABS: Anion Gap 3 (5-15); BUN 42 mg/dL (7-18); BUN/Creat Ratio 37.2 RATIO (10-20); Calcium,Total 9.7 mg/dL (8.5-10.1); Chloride 112 mmol/L (98-107); Creatinine, Serum 1.13 mg/dL (0.70-1.30); EST Glomerular Filtration Rate 66 mL/min (>60); Est Glom Filt Rate - Afr Amer 80 mL/min (>60); Estimated Creatinine Clearance 52.94 ml/min; Glucose 144 mg/dL (74-106); Magnesium 2.5 mg/dL (1.6-2.6); Phosphorus 3.1 mg/dL (2.5-4.9); Potassium 4.6 mmol/L (3.5-5.1); Sodium Level 140 mmol/L (136-145); Thyroid Stim Hormone (TSH) 0.39 uIU/mL (0.358-3.74)
[2023-01-16] MEDS: Ipratropium/Albuterol Sulfate 3 ML AMPUL.NEB INHALATION ×2 (07:20→13:16)
[2023-01-16] MEDS: Budesonide Respules 0.5 MG/2 ML AMPUL.NEB. INHALATION (07:25)
[2023-01-16] MEDS: Metoprolol Tartrate 25 MG Tablet PO (09:12)
[2023-01-16] MEDS: Spironolactone 25 MG Tablet 12.5 MG PO (09:13)
[2023-01-16] MEDS: Magnesium Chloride 64 MG Delay Rel.Tablet 128 MG PO (09:13)
[2023-01-16] MEDS: Tamsulosin HCl 0.4 MG Capsule PO (09:14)
[2023-01-16] MEDS: MethylPREDNISolone 125 MG/2 ML Vial 60 MG IV (09:14)
[2023-01-16] MEDS: Pravastatin 40 MG Tablet PO (09:14)
[2023-01-16] MEDS: Pantoprazole Sodium 20 MG Tablet PO (09:14)
[2023-01-16] MEDS: APIXABAN 2.5 MG TABLET (WCH) PO (09:17)
[2023-01-16] MEDS: Furosemide 40 MG/4 ML Vial IV (09:37)
--- NOTE | 2023-01-16 12:50 | CASEMGMT ---
Addendum entered by Wagner Humphrey 01/16/23 14:25: Home O2 testing has been completed. Pt does not qualify for increase in home O2, as his current O2 orders are 5 l/m continuously. has brought in portable O2 tank for pt to go home on. Pt declines wanting HHC and denies having any further discharge planning needs. He voices appreciation for care and information received. Original Note: SANDRA VASQUEZ NOTE: RN CM to room. Pt sitting on edge of bed. @ bedside. Pt states he has spoken w/his about palliative care. Questions answered. Pt and both interested in a referral to palliative care. Order received from Dr Espinoza. Referral sent to [facility] via e-mail. Earle GARCIA RN CM
--- NOTE | 2023-01-16 13:39 | PCM.DC.SUM ---
Providers Date of Admission: 01/12/23 Date of Discharge: 01/16/23 Primary Care Physician: Dr. Rosana Douglass, Reason For Visit: RLL PNEUMONIA AND ACUTE EXACERBATION OF COPD Diagnosis Discharge Diagnosis (1) Right lower lobe pneumonia: Status: Acute Code(s): J18.9 - Pneumonia, unspecified organism Qualifiers: Pneumonia type: due to unspecified organism Qualified Code(s): J18.9 - Pneumonia, unspecified organism (2) Hypoxia: Status: Acute Code(s): R09.02 - Hypoxemia (3) COPD with acute exacerbation: Status: Chronic Code(s): J44.1 - Chronic obstructive pulmonary disease with (acute) exacerbation Plan Acute hypoxia on chronic hypoxic respiratory failure secondary to right lower lobe pneumonia/acute exacerbation of COPD -Baseline oxygen requirement is 4 L nasal cannula -Patient currently on this at rest however has significant exertional hypoxia dropping down in the mid 80s on his baseline 4 L -Will continue IV antibiotics but transition to pseudomonal coverage with history of respiratory disease -Discontinue azithromycin and ceftriaxone and add Levaquin -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--> May need to sitter this is a possibility -Continue Solu-Medrol -Continue aggressive pulmonary toilet with nebulizers, I-S, Acapella -COVID and respiratory viral panel are both negative -Check CTA of the chest with ongoing exertional hypoxia and shortness of breath -May need to consider pulmonary consultation depending on progress and CT findings -Patient follows as an outpatient at [facility] for pulmonary medicine CKD stage II -Renal function is stable -Continue to monitor -Will give IV fluids x 1 L as I am giving him contrast for CT of the chest Pulmonary hypertension--> suspect who group 2 -Continue home medication -It looks like exertional dyspnea has been a problem for some time -Continue outpatient follow-up with pulmonary medicine as ongoing outpatient workup is in progress History of stage Ib lung cancer -Status post left lower lobe lobectomy in 2007 COPD -Hold home inhalers -Treatment as above Chronic HFpEF-compensated -Continue home diuretics CAD/HTN/HPL/persistent A-fib -CABG x6: Sequential JUAREZ-Ramus and D1, BUD to LAD, SVG -D2, Sequential SVG-PDA and LCx 07/20/2003 -Stress test in 2020 that was negative for ischemia -Continue Eliquis -Continue isosorbide mononitrate -Continue home metoprolol -Continue home pravastatin -Continue home Aldactone -Heart rate is currently controlled GERD -Continue home PPI BPH -Cont Flomax DVT prophylaxis -Continue Eliquis CODE STATUS -Unclear at this time--> previous CODE STATUS at last admission was full code Medications at Discharge Home Medications albuterol sulfate 90 mcg/actuation aerosol inhaler 1 - 2 puff inhalation Q4H PRN PRN Wheezing 12/04/15 tamsulosin 0.4 mg capsule 0.4 mg PO DAILY prostate #30 caps 09/16/18 acetaminophen 500 mg tablet 1,000 mg PO DAILY PRN PRN Pain 1-10 Or Fever 12/23/19 sertraline 50 mg tablet 75 mg PO QHS depression 11/14/20 magnesium oxide 400 mg (241.3 mg magnesium) tablet 400 mg PO DAILY #90 tabs 07/16/21 apixaban 2.5 mg tablet (Eliquis) 2.5 mg PO BID #180 tabs 01/20/22 pravastatin 40 mg tablet 40 mg PO DAILY cholesterol #90 tabs 01/20/22 glycopyrrolate 9 mcg-formoterol 4.8 mcg HFA aerosol inhaler (Bevespi Aerosphere) 2 inh inhalation BID COPD 03/27/22 metoprolol tartrate 25 mg tablet 25 mg PO BID #180 tabs 07/17/22 spironolactone 25 mg tablet 12.5 mg (1/2 x 25 mg) PO DAILY #45 tabs 09/09/22 sildenafil (pulm.hypertension) 20 mg tablet 20 mg PO TID pulmonary hypertension 12/29/22 albuterol sulfate 2.5 mg/3 mL (0.083 %) solution for nebulization 2.5 mg continuous nebulization TID 01/02/23 budesonide 0.5 mg/2 mL suspension for nebulization 0.5 mg inhalation DAILY 01/02/23 omeprazole 20 mg capsule,delayed release 20 mg PO BID gerd #180 caps 01/09/23 furosemide 40 mg tablet (Lasix) 40 mg PO BID #60 tabs 01/16/23 Hospital Course Operations None Procedures EKG and - (Chest x-ray/CT chest) Summary of Care Provided Minutes Spent on Discharge: 38 Hospital Course: Mr. Vann is an 82-year-old male who presented to the emergency department at [facility] on 01/12/2023 complaining of worsening shortness of breath. The patient has a known history of COPD and chronic hypoxic respiratory failure which requires 4 L nasal nasal cannula. He also is being seen by Dr. Delgado at [facility] for pulmonary hypertension. Upon review of records it appears that he had a recent office visit with pulmonary medicine on 11/07/2022 at which time it was concern for pulmonary hypertension on an echocardiogram as his right ventricular systolic pressure was measured at 84 mmHg. He is known to have moderate to severe centrilobular emphysema and remote granulomatous disease with a history of stage Ib non-small cell lung CA status post left lower lobe lobectomy in 2007. Per documentation at this visit he had been having exertional dyspnea and they felt it was related to multiple advanced comorbidities including his emphysema, chronic HFpEF, history of lung cancer and now with underlying pulmonary hypertension. With regards to his pulmonary hypertension further workup was recommended including a right-sided heart cath and serology was ordered and he was to continue his Lasix and Aldactone and follow-up as an outpatient. The patient reports his Lasix was discontinued at some point he is unclear why or when this was done however he has not been on oral Lasix. His previous dosing was 40 mg twice daily per cardiology documentation from 01/02/2023. It is unclear how long he has not been taking medication. Upon presentation there was concern that he may have a lower left lower lobe pneumonia with his chest x-ray and he was placed on broad-spectrum antibiotics. However, I obtained a CTA of his chest to rule out PE and get a better look at his lung parenchyma and there does not appear to be a pneumonia present nor any significant findings on his CAT scan so I do suspect his ongoing exertional dyspnea is related to worsening pulmonary hypertension. He was started on 2 by pulmonary medicine and I encouraged him to continue this. I suspect his mild decompensation was likely due to the discontinuation of his diuresis. I have restarted his Lasix and will continue this upon discharge. We did an ambulatory pulse ox and he requires 4 L of oxygen at rest and 6 L with exertion to maintain oxygen saturations greater than 88%. I have asked him to follow-up with his primary care physician and requested a basic metabolic profile be done within the next 7 to 10 days to reevaluate his renal function and potassium level given the utilization of diuretics. Again, I do suspect the decompensation he was experiencing was related to the discontinuation of his Lasix but again am unclear how long he has been off diuretics. I have asked him to follow-up with his plastics repairer as previously recommended which appears to be scheduled for around 02/06/2023. Discharge diagnoses: Acute on chronic hypoxic respiratory failure -Pneumonia/COPD ruled out Severe pulmonary hypertension CKD stage II History of stage Ib lung cancer COPD with emphysematous changes Chronic HFpEF CAD HTN HPL Persistent atrial fibrillation GERD BPH Physical Exam Narrative Patient states he feels about the same with exertion. No shortness of breath at rest. We did discuss utilization of Lasix and that it appeared he had been on this previously. He states it was stopped for some reason but he is not clear why. We did discuss the importance of diuresis with his pulmonary artery hypertension and Lasix was reinitiated. He takes 40 mg twice daily previously so we will restart that. Const alert, oriented x3, no apparent distress, average body habitus, no limitations and well nourished Constitutional Narrative: Very pleasant, older, white male, sitting up in bed, appears comfortable and nontoxic, currently on 4 L nasal cannula at rest, watching television General Appearance: cooperative, comfortable, well kempt and well developed HEENT normocephalic, head/scalp atraumatic, moist oral mucous membranes and oropharynx normal HEENT Narrative: Mild to moderate hearing loss, Mallampati 2, no thrush Eyes PERRL, EOMs intact bilaterally and conjunctivae normal Eyes Narrative: No scleral icterus Neck no lymphadenopathy, supple and no JVD Neck Narrative: Trachea midline, no thyroid enlargement Resp normal respiratory effort, no retractions and no use of accessory muscles Resp Narrative: Diffusely diminished but clear Auscultation: Negative for crackles, rhonchi or wheezes Cardio S1 normal heart sound, S2 normal heart sound, no murmurs, no rub, no gallops and no clicks Cardio Narrative: Irregularly irregular with controlled rate GI normal to inspection, nondistended, normoactive bowel sounds, soft to palpation and non-tender Extremity no clubbing, cyanosis or edema Extremity Narrative: Pedal pulses are 2+ Skin no rashes or lesions noted, no wounds, skin turgor normal and no jaundice Neuro oriented x3, moves all extremities and no focal motor deficits Speech: speech normal Psych affect normal Psych Narrative: Eye contact is good, patient interacts appropriately, very pleasant Mood & Affect: anxious Weight / BMI Weight Weight: 86.2 kg Body Mass Index (BMI) 27.2 ABG / Lab / Microbiology Data 01/16/23 05:30 01/16/23 05:30 Laboratory: Laboratory Results - last 24 hr 01/16/23 05:30: WBC 6.9, RBC 4.21 L, Hgb 13.5, Hct 41.2, MCV 97.9 H, MCH 32.1 H, MCHC 32.8, RDW Std Deviation 48.5 H, RDW Coeff of Jamar 13.4, Plt Count 128 L, MPV 9.8, Immature Gran % (Auto) 0.700, Neut % (Auto) 91.8 H, Lymph % (Auto) 3.9 L, [place] % (Auto) 3.6, Eos % (Auto) 0.0, Baso % (Auto) 0.0, Absolute Neuts (auto) 6.3, Absolute Lymphs (auto) 0.27 L, Nucleated RBC % 0, Differential Comment SCANNED, Sodium 140, Potassium 4.6, Chloride 112 H, Carbon Dioxide 25.0, Anion Gap 3 L, BUN 42 H, Creatinine 1.13, Estim Creat Clear Calc 52.94, Est GFR (MDRD) Af Amer 80, Est GFR (MDRD) Non-Af 66, BUN/Creatinine Ratio 37.2 H, Glucose 144 H, Calcium 9.7, Phosphorus 3.1, Magnesium 2.5, TSH 0.39 Microbiology: Microbiology 01/12/23 20:48 Nasal Secretion SARS-CoV-2 & FLU Antigen (Rapid) - Final Radiography Diagnostic Testing: Radiology Impression Chest CT 01/15/23 12:53 IMPRESSION: Underlying emphysema with nonspecific pleural thickening, small pleural effusions and bibasilar atelectasis. No organized infiltrate. There is a stable 1 cm calcified granuloma in the right lower lobe and a too small to characterize 3 mm pleural-based nodule in the left upper lobe. No suspicious adenopathy Remote CABG Hiatal hernia Electronically Signed: Chaim Bah MD at 14:27 EST , D/C Instructions Discharge Diet: Low fat / Low cholesterol (Limit fluid intake to 2 L or less daily) and 4000 mg Sodium Diet Discharge Activity: Return to Normal Activity Meaningful Use Info Meaningful Use Diagnoses (Choose all that apply): None applicable Discharge Plan Admission Admit Date/Time: 01/12/23 23:34 Primary Reason for Your Visit: Exertional dyspnea Attending Provider: Kathleen Espinoza Primary Care Provider: Rosana Douglass Consulting Providers: Stanley Chavez; Dann Tee Instructions Additional Instructions / Restrictions: 1. Please follow-up with Dr. Delgado as previously scheduled 2. Please call your primary care physician and asked them to obtain a basic metabolic profile to be done within the next 7 to 10 days to follow-up your kidney function as well as your potassium with the reinitiation of Lasix for your breathing 3. Utilize 4 L of oxygen at rest and 6 L with exertion Discharge Orders/Prescriptions Prescriptions: New furosemide [Lasix] 40 mg tablet 40 mg PO BID Qty: 60 1RF Continued tamsulosin 0.4 mg capsule 0.4 mg PO DAILY Qty: 30 magnesium oxide 400 mg (241.3 mg magnesium) tablet 400 mg PO DAILY Qty: 90 3RF sertraline 50 mg tablet 75 mg PO QHS Patient Comments: mood pravastatin 40 mg tablet 40 mg PO DAILY Qty: 90 3RF metoprolol tartrate 25 mg tablet 25 mg PO BID Qty: 180 3RF budesonide 0.5 mg/2 mL suspension for nebulization 0.5 mg inhalation DAILY Patient Comments: Use 2 mL via nebulizer every 12 hours. Inhale over 5-15 minutes albuterol sulfate 2.5 mg /3 mL (0.083 %) solution for nebulization 2.5 mg continuous nebulization TID Patient Comments: Use 3 mL via nebulizer twice daily. Inhale over 5-15 minutes albuterol sulfate 1 INHALER inhaler 1 - 2 puff INHALATION Q4H PRN PRN (Reason: Wheezing) Patient Comments: breathing acetaminophen 500 MG tablet 1,000 mg PO DAILY PRN PRN (Reason: Pain 1-10 Or Fever) Bevespi Aerosphere 9-4.8 mcg HFA aerosol inhaler 2 inh INHALATION BID Patient Comments: Inhale 2 Puffs as instructed twice daily. Eliquis 2.5 mg tablet 2.5 mg PO BID Qty: 180 3RF spironolactone 25 mg tablet 12.5 mg PO DAILY Qty: 45 3RF sildenafil (pulm.hypertension) 20 mg tablet 20 mg PO TID Rx Instructions: administer doses at least 4-6 hours apart omeprazole 20 mg capsule,delayed release(DR/EC) 20 mg PO BID Qty: 180 3RF Discontinued isosorbide mononitrate 30 mg tablet extended release 24 hr 30 mg PO DAILY Referrals / Follow Up: Rosana Douglass DO [Primary Care Provider] - Within 2 Weeks Disposition Disposition (needs filled in before D/C Order can be placed): Home, Self Care Charges/Coding Visit Charges Inpatient E&M: 64136 Disch Hosp >30min
== END 2023-01-16 15:19 | disposition home or self-care (01) | DRG 314 ==
LOC: ED 22:50 → PCU 01-13 00:06
PROVIDERS: Family Medicine; Admitting Provider Internal Medicine; Emergency Provider Emergency Medicine; PCP Internal Medicine; Visit Provider Internal Medicine
DX: I27.21 Secondary pulmonary arterial hypertension (principal); J96.21 Acute and chronic respiratory failure with hypoxia; I13.0 Hypertensive heart and chronic kidney disease with heart failure and stage 1 through stage 4 chronic kidney disease, or unspecified chronic kidney disease; I50.32 Chronic diastolic (congestive) heart failure; I48.20 Chronic atrial fibrillation, unspecified; I27.22 Pulmonary hypertension due to left heart disease; J43.2 Centrilobular emphysema; F32.A Depression, unspecified; N18.2 Chronic kidney disease, stage 2 (mild); I25.10 Atherosclerotic heart disease of native coronary artery without angina pectoris; E78.5 Hyperlipidemia, unspecified; K21.00 Gastro-esophageal reflux disease with esophagitis, without bleeding; F41.9 Anxiety disorder, unspecified; N40.0 Benign prostatic hyperplasia without lower urinary tract symptoms; Z79.51 Long term (current) use of inhaled steroids; Z99.81 Dependence on supplemental oxygen; Z79.01 Long term (current) use of anticoagulants; Z11.52 Encounter for screening for COVID-19; Z87.891 Personal history of nicotine dependence; Z95.1 Presence of aortocoronary bypass graft; Z85.118 Personal history of other malignant neoplasm of bronchus and lung; Z90.2 Acquired absence of lung [part of]
CPT/HCPCS: 36415; 71045; 71260; 80048; 83735; 84100; 84443; 85025; 87428; 93005; 94640; 94668; 94760; 99252; 99285; J7030; J7040; J7050; Q9967; A4216; G0463; J1940

== ENCOUNTER → 2023-01-23 | Outpatient (CLI) | payer MEDICARE, OTHER, SELFPAY ==
[2023-01-23 15:30] LABS: Absolute Lymphocyte Count 1.21 X10^3/uL (0.83-4.51); Absolute Neutrophil Count 4.7 X10^3/uL (2.0-7.7); Basophil# 0.04 X10^3/uL; Basophil% 0.6 % (0-1); Eosinophils% 2.8 % (0-5); Hematocrit 43.8 % (40-54); Hemoglobin 14.2 g/dL (13.0-16.5); Lymphocyte # 1.21 X10^3/ul (0.83-4.51); Lymphocyte % 16.9 % (19-41); Mean Corp Hgb Conc 32.4 g/dL (32-36); Mean Corpuscular Hgb 32.2 pg (27.0-32.0); Mean Corpuscular Volume 99.3 fL (80-94); Mean Platelet Vol. 10.4 fl (6.2-12.0); Monocyte# 0.93 X10^3/uL; NRBC Flagged by Analyzer 0 % (0-5); Neutrophil # 4.73 X10^3/uL (2.7-7.7); Neutrophil % 66.3 % (47-70); Platelet Count 181 K/mm3 (150-450); RBC Distribution Width SD 48.2 fl (35.1-43.9); Red Blood Count 4.41 M/mm3 (4.6-6.2); White Blood Count 7.1 K/mm3 (4.4-11.0)
[2023-01-23 15:47] LABS: ALB/GLOB Ratio 0.9 RATIO (0.9-2.4); AST(SGOT) 16 U/L (15-37); Alanine Aminotransfer ALT/SGPT 18 U/L (16-61); Albumin, Serum 3.3 g/dL (3.2-5.0); Alkaline Phosphatase 70 U/L (45-117); Anion Gap 3 (5-15); BUN 35 mg/dL (7-18); BUN/Creat Ratio 22.4 RATIO (10-20); Chloride 106 mmol/L (98-107); Creatinine, Serum 1.56 mg/dL (0.70-1.30); EST Glomerular Filtration Rate 46 mL/min (>60); Est Glom Filt Rate - Afr Amer 55 mL/min (>60); Globulin 3.6 g/dL (2.2-4.2); Glucose 114 mg/dL (74-106); Potassium 4.1 mmol/L (3.5-5.1); Protein, Total 6.9 g/dL (6.4-8.2); Sodium Level 142 mmol/L (136-145)
== END | disposition home or self-care (01) ==
LOC: MTLAB 12:58
PROVIDERS: PCP Internal Medicine; Referring Provider Nurse Practitioner Family; Visit Provider Nurse Practitioner Family
DX: R33.8 Other retention of urine (principal)
CPT/HCPCS: 36415; 80053; 85025

== ENCOUNTER → 2023-03-02 | Outpatient (CLI) | payer MEDICARE, OTHER, SELFPAY ==
--- NOTE | 2023-03-02 09:46 | RAD_ITS ---
STUDY: X-RAY CHEST REASON FOR EXAM: Male, 82 years old. Follow-up of pneumonia. TECHNIQUE: Frontal and lateral views of the chest on 3 images. COMPARISON: January 12, 2023 FINDINGS: Hyperinflation. Patchy opacity in the right lower lobe posteriorly most compatible with pneumonia and little altered from prior study. There is no demonstrated pleural abnormality. Stable cardiomegaly with sternotomy wires and changes of coronary artery bypass graft. Normal mediastinum and babak. Normal visualized pulmonary arteries. Aortic tortuosity with calcification unchanged. Normal visualized thoracic spine. Normal visualized ribs, clavicles, and shoulders. There is no demonstrated abnormality of the visualized soft tissue structures of the upper abdomen. RAD/Chest PA and Lateral IMPRESSION: Stable cardiomegaly, hyperinflation and patchy right lower lobe opacity. Follow-up chest imaging to resolution recommended. Electronically Signed: Kervin Lomeli MD at 10:11 EST ,
== END | disposition home or self-care (01) ==
PROVIDERS: PCP Internal Medicine; Referring Provider Internal Medicine; Visit Provider Internal Medicine
DX: J18.9 Pneumonia, unspecified organism (principal)
CPT/HCPCS: 71046

== ENCOUNTER → 2023-08-17 | Outpatient (CLI) | payer MEDICARE, OTHER, SELFPAY ==
--- NOTE | 2023-08-17 12:45 | RAD_ITS ---
STUDY: X-RAY CHEST REASON FOR EXAM: Male, 82 years old. Cough TECHNIQUE: PA and lateral views of the chest. COMPARISON: Comparison is made with prior study dated March 02, 2023. FINDINGS: Hyperinflation. Findings suggestive of early infiltrate superimposed on scarring in the right lower lobe. Stable pleural parenchymal changes at the left lung base. Calcified granulomas at the right lung base. There is no demonstrated pleural abnormality. Sternal cerclage wires and vascular clips are present from a prior sternotomy and coronary artery bypass graft procedure (CABG). Normal mediastinum and babak. Normal visualized pulmonary arteries. There is atherosclerotic calcification of the aortic arch with tortuosity. There are diffuse degenerative changes of the visualized thoracic spine. Normal visualized ribs, clavicles, and shoulders. There is no demonstrated abnormality of the visualized soft tissue structures of the upper abdomen. RAD/Chest PA and Lateral IMPRESSION: Findings suggestive of mild degree of the atelectasis and/or infiltrate superimposed on right basilar scarring. Stable pleural parenchymal changes at the left lung base. Stable calcified granulomas in the right lower lobe. Electronically Signed: Jake Bazzi MD at 14:02 EDT ,
== END | disposition home or self-care (01) ==
LOC: MTRAD 12:44
PROVIDERS: PCP Internal Medicine; Referring Provider Physician Assistant; Visit Provider Physician Assistant
DX: R05.9 Cough, unspecified (principal)
CPT/HCPCS: 71046

== ENCOUNTER → 2024-05-24 | Outpatient (CLI) | payer MEDICARE, OTHER, SELFPAY ==
--- NOTE | 2024-05-24 08:59 | ECHOD_ITS ---
Reason For Study Reason For Study: Pulmonary HTN Procedure This was a 2D Doppler, Color Flow transthoracic echocardiogram. Myocardial strain analysis was performed in this exam to aid in the assessment of cardiac function. Exam performed in department. Left Ventricle Normal LV size. The global longitudinal strain = -17.9 % (normal). The left ventricular ejection fraction is 55 %. Stage 1 diastolic dysfunction. No regional wall motion abnormalities noted. Right Ventricle Mildly dilated right ventricle. Mild global right ventricular systolic dysfunction. Atria The left atrium is mildly enlarged. The right atrium is mildly enlarged. Hypermobile atrial septum. Mitral Valve Normal mitral valve. Tricuspid Valve Normal tricuspid valve. Mild to moderate (1-2+) tricuspid valve insufficiency. Pulmonary artery systolic pressure is 54 mmHg. Aortic Valve Trisinus/trileaflet aortic valve. Mild focal aortic valve thickening. Pulmonic Valve Normal pulmonic valve. Great Vessels Normal aortic root. The pulmonary artery is normal size. Inferior vena cava collapse with respiration. Pericardium/Pleural No pericardial effusion. MMode/2D Measurements & Calculations LVIDd: 5.6 cm IVSd: 0.90 cm Ao root diam: 3.5 cm LVIDs: 4.3 cm LVPWd: 1.0 cm RVDd: 5.8 cm FS: 23.6 % LAV(MOD-bp): 82.3 ml LVAd ap4: 28.7 cm2 SV(MOD-sp4): 50.8 ml LAV(MOD-bp) Indexed: 42.0 ml/m2 LVLd ap4: 7.5 cm SI(MOD-sp4): 25.9 ml/m2 LAV(MOD-sp2): 78.4 ml EDV(MOD-sp4): 94.5 ml LAV(MOD-sp4): 71.1 ml EDV(sp4-el): 94.1 ml LVAs ap4: 18.0 cm2 LVLs ap4: 6.8 cm ESV(MOD-sp4): 43.7 ml ESV(sp4-el): 40.4 ml EF(MOD-sp4): 53.7 % EF(sp4-el): 57.0 % SV(sp4-el): 53.7 ml LA A4 area: 24.0 cm2 LA dimension(2D): 4.9 cm RA A4 area: 28.4 cm2 TAPSE: 1.1 cm Time Measurements MV dec time: 0.26 sec Doppler Measurements & Calculations MV E max dick: 53.5 cm/sec Lat Peak E' Dick: 9.6 cm/sec Med Peak E' Dick: 5.8 cm/sec MV A max dick: 82.1 cm/sec E/E' lat: 5.6 E/E' med: 9.2 MV E/A: 0.65 MV V2 max: 96.1 cm/sec MV P1/2t max dick: 55.3 cm/sec Ao V2 max: 141.6 cm/sec MV max P.7 mmHg MV P1/2t: 81.8 msec Ao max P.0 mmHg MV V2 mean: 50.3 cm/sec MV mean P.2 mmHg MV dec slope: 198.1 cm/sec2 MV V2 VTI: 35.6 cm MVA(P1/2t): 2.7 cm2 LV V1 max: 80.8 cm/sec PA V2 max: 102.8 cm/sec LV V1 max P.6 mmHg PI dec slope: 114.8 cm/sec2 TR max dick: 353.2 cm/sec TR max P.9 mmHg ECHO/Echo Complete Interpretation Summary Hypermobile atrial septum. Normal LV size. The global longitudinal strain = -17.9 % (normal). The left ventricular ejection fraction is 55 %. The left atrium is mildly enlarged. The right atrium is mildly enlarged. Stage 1 diastolic dysfunction. Pulmonary artery systolic pressure is 54 mmHg. Ordering Physician: Nikolai Robert Referring Physician: Ruy Delgado Performed By: Sudarshan Hodge RCS
== END | disposition home or self-care (01) ==
PROVIDERS: PCP Internal Medicine; Referring Provider Nurse Practitioner Family; Visit Provider Nurse Practitioner Family
DX: I27.21 Secondary pulmonary arterial hypertension (principal); I50.32 Chronic diastolic (congestive) heart failure; I25.10 Atherosclerotic heart disease of native coronary artery without angina pectoris; Z95.1 Presence of aortocoronary bypass graft
CPT/HCPCS: 93306

== ENCOUNTER → 2024-08-16 | Outpatient (CLI) | payer MEDICARE, OTHER, SELFPAY ==
[2024-08-16 12:34] LABS: Absolute Lymphocyte Count 0.89 X10^3/uL (0.83-4.51); Absolute Neutrophil Count 2.6 X10^3/uL (2.0-7.7); Basophil# 0.03 X10^3/uL; Basophil% 0.7 % (0-1); Eosinophil# 0.17 X10^3/uL; Eosinophils% 4.2 % (0-5); Hematocrit 33.2 % (40-54); Hemoglobin 10.4 g/dL (13.0-16.5); Lymphocyte # 0.89 X10^3/ul (0.83-4.51); Lymphocyte % 21.9 % (19-41); Mean Corp Hgb Conc 31.3 g/dL (32-36); Mean Corpuscular Hgb 26.9 pg (27.0-32.0); Mean Platelet Vol. 9.9 fl (6.2-12.0); Monocyte# 0.33 X10^3/uL; Monocyte% 8.1 % (0-10); NRBC Flagged by Analyzer 0 % (0-5); Neutrophil # 2.63 X10^3/uL (2.7-7.7); Neutrophil % 64.9 % (47-70); Platelet Count 175 K/mm3 (150-450); RBC Distribution Width CV 14.6 % (11.6-14.6); RBC Distribution Width SD 46.6 fl (35.1-43.9); Red Blood Count 3.86 M/mm3 (4.6-6.2); White Blood Count 4.1 K/mm3 (4.4-11.0)
[2024-08-16 13:21] LABS: ALB/GLOB Ratio 1.4 RATIO (0.9-2.4); AST(SGOT) 16 U/L (<=37); Alanine Aminotransfer ALT/SGPT 9 U/L (<=46); Albumin, Serum 4.2 g/dL (3.4-4.8); Alkaline Phosphatase 67 U/L (40-129); Anion Gap 13 (5-15); BUN 33 mg/dL (4-19); BUN/Creat Ratio 20.6 RATIO (10-20); Carbon Dioxide 24.6 mmol/L (21.0-32.0); Chloride 103 mmol/L (98-108); Creatinine, Serum 1.59 mg/dL (0.70-1.20); EST Glomerular Filtration Rate 43 (>60); Glucose 109 mg/dL (70-99); Potassium 4.3 mmol/L (3.3-5.1); Protein, Total 7.1 g/dL (5.9-8.4); Sodium Level 141 mmol/L (133-145)
[2024-08-17 00:52] LABS: Erythrocyte Sedimentation Rate 21 mm/hr (0-20)
== END | disposition home or self-care (01) ==
LOC: MTLAB 10:16
PROVIDERS: PCP Internal Medicine; Referring Provider Internal Medicine; Visit Provider Internal Medicine
DX: R19.01 Right upper quadrant abdominal swelling, mass and lump (principal)
CPT/HCPCS: 36415; 80053; 85025; 85652; 86140

== ENCOUNTER → 2024-08-23 | Outpatient (CLI) | payer MEDICARE, OTHER, SELFPAY ==
--- NOTE | 2024-08-23 07:25 | CT_ITS ---
PROCEDURE: ABDOMEN/PELVIS WITH CONTRAST 08/23/2024 REASON FOR EXAM: ABDOMINAL MASS, RUQ TECHNIQUE: ABDOMEN/PELVIS WITH CONTRAST Coronal and Sagittal reconstruction series were provided. CONTRAST: Isovue 370 VOLUME: 100 mL oral contrast also administered One or more dose reduction techniques were used (e.g., Automated exposure control, adjustment of the mA and/or kV according to patient size, use of iterative reconstruction technique. RADIATION DOSE SUMMARY: CTDlvol: 37.61 mGy DLP: 843.34 mGycm COMPARISON: 05/12/2021 FINDINGS: Lung bases: Chronic interstitial changes with atelectasis and granulomatous calcifications. Liver: Normal size. No mass. There is a simple cyst in the right lobe measuring 2 cm. No specific follow-up needed. Gallbladder: Layering gallstones noted without CT evidence of acute cholecystitis. Spleen: Normal size. Pancreas: Normal size without evidence of mass surrounding inflammation or ductal dilation. Adrenals: Unremarkable Kidneys: No obstructive uropathy, or suspicious solid renal lesion, there are simple cortical cysts in both kidneys and nonobstructing renal stones. Bladder: Bladder is unremarkable though there is impingement upon the inferior aspect of the bladder from an enlarged prostate which contains calcifications. Bowel: Majority of the small bowel loops are unremarkable and are normally distended with oral contrast. However, in the mid right abdomen, there is an area of abrupt cut off of oral contrast seen on axial image 54 and coronal recon image 40. There is fecalization of small bowel loop here in the distal ileum and underlying lesion can not be excluded. There is an air-fluid level suggesting a focal obstruction or ileus due to the fecalization within the small bowel loop. There is no suspicious enhancing lesion or adenopathy. This is new since the previous study and I suspect represents an internal hernia. There is retained stool throughout the colon with extensive diverticula noted in the colon but no CT evidence of acute diverticulitis. Appendix: Not seen No free intraperitoneal fluid, air, or suspicious adenopathy. Peripheral calcifications noted in the abdominal aorta without aneurysm. Bony structures show degenerative change. CT/Abdomen/Pelvis WITH Contrast IMPRESSION: There is an abnormal appearance to distal ileum in the right mid abdomen where there is an abrupt cutoff of oral contrast and fecalization of material within the distal ileum. I suspect there is an internet database specialist al hernia here. There is no enhancing lesion or suspicious adenopathy. Surgical consultation recommended Simple hepatic and renal cysts, no specific follow-up needed. Nonobstructing nephrolithiasis Cholelithiasis, no CT evidence of acute cholecystitis Retained stool throughout the majority of the colon with scattered colonic dive rticula, no CT evidence of acute diverticulitis Degenerative bony changes Reading Location: [id number]
== END | disposition home or self-care (01) ==
PROVIDERS: PCP Internal Medicine; Referring Provider Internal Medicine; Visit Provider Internal Medicine
DX: R19.01 Right upper quadrant abdominal swelling, mass and lump (principal)
CPT/HCPCS: 74177; Q9967

== ENCOUNTER → 2024-10-17 | Outpatient (CLI) | payer MEDICARE, OTHER, SELFPAY ==
--- NOTE | 2024-10-17 13:48 | CDU_ITS ---
Reason For Study Reason For Study: carotid stenosis Rt. Velocities/BP Lt. Velocities/BP Prox CCA 67/8.1 cm/sec. Prox CCA 89.1/10.1 cm/sec. Mid CCA 105.2/12.1 cm/sec. Mid CCA 93.5/16.7 cm/sec. Dist CCA 80.6/8.1 cm/sec. Dist CCA 95.7/12.3 cm/sec. Prox ICA 148.4/23.3 cm/sec. Prox ICA 118/19.4 cm/sec. Mid ICA 80.6/15.5 cm/sec. Mid ICA 92.4/21.2 cm/sec. Dist ICA 51.2/14.5 cm/sec. Dist ICA 83.3/21.2 cm/sec. Rt. ICA/CCA = 1.41. Lt. ICA/CCA = 1.26. Prox ECA 72.1/0 cm/sec. Prox ECA 65.1/0 cm/sec. Rt. Vert. 41.7/6.1 cm/sec. Lt. Vert. 55.6/12.7 cm/sec. Right Extracranial There is heterogeneous, irregular atherosclerotic plaque noted in the right common carotid artery. There is heterogeneous, irregular atherosclerotic plaque noted in the right internal carotid artery. The atherosclerotic plaque causes acoustic shadowing. There is heterogeneous, irregular atherosclerotic plaque noted in the right external carotid artery. Antegrade flow is noted in the right vertebral artery. Left Extracranial There is heterogeneous, irregular atherosclerotic plaque noted in the left common carotid artery. There is heterogeneous, irregular atherosclerotic plaque noted in the left internal carotid artery. There is heterogeneous, irregular atherosclerotic plaque noted in the left external carotid artery. Antegrade flow is noted in the left vertebral artery. Procedure Carotid Duplex [id number]. This is a Carotid Duplex examination using B-mode, color flow and specral Doppler. Exam performed in department. VL/Carotid Duplex Ultrasound Interpretation Summary Moderate (50-69%) stenosis right extracranial internal carotid. Mild (<50%) stenosis left extracranial internal carotid. Patent and antegrade vertebrals bilaterally. Ordering Physician: Rosana Douglass Referring Physician: Rosana Douglass Performed By: Marisol Ospina RVT and Student
== END | disposition home or self-care (01) ==
LOC: CVS 13:48
PROVIDERS: PCP Internal Medicine; Referring Provider Internal Medicine; Visit Provider Internal Medicine
DX: I65.23 Occlusion and stenosis of bilateral carotid arteries (principal)
CPT/HCPCS: 93880

== ENCOUNTER 2024-10-20 11:27 | Outpatient (CLI) | payer MEDICARE, OTHER, SELFPAY ==
[2024-10-20 16:10] LABS: Hematocrit 28.6 % (40-54); Hemoglobin 8.7 g/dL (13.0-16.5); Immature Granulocytes Count 0.040 X10^3/uL (0.0-0.0); Mean Corp Hgb Conc 30.4 g/dL (32-36); Mean Corpuscular Volume 84.1 fL (80-94); Mean Platelet Vol. 10.8 fl (6.2-12.0); NRBC Flagged by Analyzer 0 % (0-5); Platelet Count 180 K/mm3 (150-450); RBC Distribution Width CV 16.3 % (11.6-14.6); RBC Distribution Width SD 49.8 fl (35.1-43.9); Red Blood Count 3.40 M/mm3 (4.6-6.2); White Blood Count 4.2 K/mm3 (4.4-11.0)
[2024-10-20 17:19] LABS: Ferritin 17 ng/mL (37-417); Iron 20 ug/dL (65-175); Iron Binding Capacity,Total 376 ug/dL (250-450); Iron Binding Capacity,Unsat 356 ug/dL (228-428); Vitamin B12 615 pg/mL (180-914)
== END 2024-10-20 23:59 | disposition home or self-care (01) ==
PROVIDERS: PCP Internal Medicine; Referring Provider Internal Medicine; Visit Provider Internal Medicine
DX: D64.9 Anemia, unspecified (principal)
CPT/HCPCS: 36415; 82607; 82728; 83540; 83550; 85025

== ENCOUNTER → 2025-01-23 | Outpatient (CLI) | payer MEDICARE, OTHER, SELFPAY ==
[2025-01-23 12:18] LABS: Hematocrit 37.2 % (40-54); Hemoglobin 11.7 g/dL (13.0-16.5); Immature Granulocytes Count 0.010 X10^3/uL (0.0-0.0); Mean Corp Hgb Conc 31.5 g/dL (32-36); Mean Corpuscular Volume 89.6 fL (80-94); Mean Platelet Vol. 10.3 fl (6.2-12.0); NRBC Flagged by Analyzer 0 % (0-5); Platelet Count 147 K/mm3 (150-450); RBC Distribution Width CV 15.1 % (11.6-14.6); RBC Distribution Width SD 49.8 fl (35.1-43.9); Red Blood Count 4.15 M/mm3 (4.6-6.2); White Blood Count 4.8 K/mm3 (4.4-11.0)
[2025-01-23 12:51] LABS: Ferritin 29 ng/mL (37-417)
[2025-01-23 13:40] LABS: Iron 52 ug/dL (65-175); Iron Binding Capacity,Total 359 ug/dL (250-450); Iron Binding Capacity,Unsat 307 ug/dL (228-428)
== END | disposition home or self-care (01) ==
LOC: CIMLAB 11:03
PROVIDERS: PCP Internal Medicine; Referring Provider Internal Medicine; Visit Provider Internal Medicine
DX: D64.9 Anemia, unspecified (principal)
CPT/HCPCS: 36415; 82728; 83540; 83550; 85025